=== PATIENT | male | born 1950 | race Caucasian/White ===

== ENCOUNTER 2016-12-23 12:16 | Inpatient (IN) | payer OTHER, MEDICARE ==
[2016-12-23] MEDS ORDERED: SODIUM CHLORIDE 0.9% 1,000 ML IV ONE ×2 (13:27→15:27)
[2016-12-23] MEDS ORDERED: methylPREDNISolone SOD SUCCI 125 MG/2 ML VIAL IV STA (13:28)
[2016-12-23] MEDS: IPRATROPIUM-ALBUTEROL 3 ML NEB INHALATION STA ×2 (13:36→13:40)
[2016-12-23 13:40] LABS: Basophils % (A) 1 %; CH 30.3; CHCM 34.7; Eosinophils # (A) 0.1 k/uL (0-0.7); Eosinophils % (A) 2 %; HCT 33.7 % (39.0-53.0); HDW 2.75; HGB 11.1 gm/dL (13.0-17.5); Luc # (Auto) 0.26; Luc % (Auto) 3; Lymphocytes # (A) 1.6 k/uL (1.0-4.8); Lymphocytes % (A) 21 %; MCH 28.9 pg (25.0-35.0); MCV 87.6 fL (80.0-100.0); Mean Platelet Volume 6.9; Monocytes # (A) 0.6 k/uL (0-1.0); Monocytes % (A) 7 %; Neutrophils # (A) 5.2 k/uL (1.3-7.7); Neutrophils % (A) 67 %; RBC 3.85 m/uL (4.30-5.90); RDW 13.2 % (11.5-15.5); WBC 7.8 k/uL (3.8-10.6); WBC (Perox) 7.77
[2016-12-23 13:51] LABS: Anion Gap 12 mmol/L; Blood Urea Nitrogen 17 mg/dL (9-20); Calcium 9.3 mg/dL (8.4-10.2); Carbon Dioxide 24 mmol/L (22-30); Chloride 103 mmol/L (98-107); Glucose 70 mg/dL (74-99); Non-African American GFR(MDRD) >60 (>60 ml/min/1.73 sqM); Potassium 4.3 mmol/L (3.5-5.1); Sodium 139 mmol/L (137-145)
--- NOTE | 2016-12-23 14:01 | ED ---
Extremity Problem HPI - General Chief complaint: Extremity Problem,Nontraumatic Stated complaint: Sent by sathya infection Source: patient Mode of arrival: ambulatory Limitations: no limitations - History of Present Illness Initial comments: Patient is a 66-year-old male who presents for evaluation for left foot wound. Past medical history as below. Patient recently had a surgery on his left foot at [facility] this past Monday. Has been doing well. Went and saw his primary care physician today and was concern for possible osteomyelitis of his left foot. He has a chronic nonhealing wounds. He is a diabetic with hypertension hyperlipidemia. Patient states that there is some drainage and mild pain to the left foot. Recommended by PCP to come in for evaluation for osteomyelitis. Denies fever, chills, headache, changes of vision, URI symptoms, shortness breath, cough, chest pain, nausea, vomiting, diarrhea, pain or burning with urination. - Related Data Home Medications Medication Instructions Recorded Confirmed Atorvastatin [Lipitor] 40 mg PO HS 12/23/16 12/23/16 Diltiazem HCl [Diltiazem 24Hr ER] 300 mg PO Q24H 12/23/16 12/23/16 HYDROcodone/APAP 10-325MG [Bowen 1 tab PO QID PRN 12/23/16 12/23/16 10-325] Hydrochlorothiazide [Hydrodiuril] 25 mg PO DAILY 12/23/16 12/23/16 Losartan Potassium [Cozaar] 100 mg PO DAILY 12/23/16 12/23/16 Melatonin 6 mg PO HS 12/23/16 12/23/16 Omeprazole [PriLOSEC] 20 mg PO AC-BRKFST 12/23/16 12/23/16 Salicylic Acid [Duofilm] 1 applic TOPICAL DAILY 12/23/16 12/23/16 Sennosides [Senna] 8.6 mg PO DAILY PRN 12/23/16 12/23/16 Sildenafil Citrate [Viagra] 100 mg PO ONCE PRN 12/23/16 12/23/16 Tamsulosin HCl [Flomax] 0.4 mg PO DAILY 12/23/16 12/23/16 glipiZIDE [Glucotrol] 20 mg PO BID 12/23/16 12/23/16 metFORMIN HCL [Glucophage] 1,000 mg PO BID 12/23/16 12/23/16 Allergies Allergy/AdvReac Type Severity Reaction Status Date / Time sulfamethoxazole Allergy Severe joint pain Verified 12/23/16 13:41 [From Bactrim] ciprofloxacin [From Cipro] Allergy joint pain Verified 12/23/16 13:41 lisinopril Allergy joint pain Verified 12/23/16 13:41 trimethoprim [From Bactrim] Allergy Unknown Verified 12/23/16 13:41 Review of Systems ROS Statement: Those systems with pertinent positive or pertinent negative responses have been documented in the HPI. ROS Other: All systems not noted in ROS Statement are negative. Past Medical History Past Medical History: Diabetes Mellitus, GERD/Reflux, Hyperlipidemia, Hypertension History of Any Multi-Drug Resistant Organisms: None Reported Past Surgical History: Orthopedic Surgery, Tonsillectomy Additional Past Surgical History / Comment(s): foot elbow great toe amputation Past Psychological History: No Psychological Hx Reported Smoking Status: Current every day smoker Past Alcohol Use History: None Reported Past Drug Use History: None Reported General Exam Limitations: no limitations General appearance: alert, in no apparent distress, other (Nontoxic appearing) Head exam: Present: atraumatic, normocephalic, normal inspection Eye exam: Present: normal appearance, PERRL, EOMI. Absent: scleral icterus, conjunctival injection, periorbital swelling ENT exam: Present: normal exam, mucous membranes moist Neck exam: Present: normal inspection. Absent: tenderness, meningismus, lymphadenopathy Respiratory exam: Present: wheezes, rhonchi, other (Coarse breath sounds bilaterally with expiratory wheeze. No respiratory distress. No hypoxia. No tachypnea.). Absent: respiratory distress, rales, stridor Cardiovascular Exam: Present: regular rate, normal rhythm, normal heart sounds. Absent: systolic murmur, diastolic murmur, rubs, gallop, clicks GI/Abdominal exam: Present: soft, normal bowel sounds. Absent: distended, tenderness, guarding, rebound, rigid Extremities exam: Present: normal inspection, full ROM, normal capillary refill. Absent: tenderness, pedal edema, joint swelling, calf tenderness Back exam: Present: normal inspection Neurological exam: Present: alert, oriented X3, CN II-XII intact Psychiatric exam: Present: normal affect, normal mood Skin exam: Present: warm, dry, intact, normal color, other (There is a quarter sized nonhealing wound on the entire surface of his left foot. Surgical changes to the left first and second digit. Appears intact. Mild degree of surrounding erythema to the wound on his left foot. Foul-smelling discharge.). Absent: rash Course Vital Signs 12/23/16 12/23/16 12/23/16 12:28 13:40 13:47 Temperature 97.7 F Pulse Rate 80 80 80 Respiratory 18 Rate Blood Pressure 127/62 O2 Sat by Pulse 96 Oximetry 12/23/16 15:34 Temperature 97.9 F Pulse Rate 77 Respiratory 18 Rate Blood Pressure 126/60 O2 Sat by Pulse 92 L Oximetry Medical Decision Making - Medical Decision Making -Patient is a 66 year old male who presents for evaluation for possible osteomyelitis the left foot. Sent by PCP. No associated symptoms. On exam he does have some incidental expiratory wheeze and scattered rhonchi. We'll order reading treatments and steroids. Two-view chest x-ray. Basic labs with a lactic acid and plain films of his left foot. 1515: Review laboratory studies. Mild lactic acidosis at 2.0. Rest of labs within normal limits. Reviewed plain films of his chest and left foot. There is evidence of acute osteomyelitis of the second metatarsal. Will start vancomycin. Page 2 admitting physician based on PCP preference. 1625: Awaiting callback from admitting physician. 1700: Will admit pt to Dr. Bhat's service for osteomyelitis. - Lab Data Result diagrams: 12/23/16 13:15 12/23/16 13:15 Lab Results 12/23/16 12/23/16 12/23/16 Range/Units 13:15 13:15 13:15 WBC 7.8 (3.8-10.6) k/uL RBC 3.85 L (4.30-5.90) m/uL Hgb 11.1 L (13.0-17.5) gm/dL Hct 33.7 L (39.0-53.0) % MCV 87.6 (80.0-100.0) fL MCH 28.9 (25.0-35.0) pg MCHC 33.0 (31.0-37.0) g/dL RDW 13.2 (11.5-15.5) % Plt Count 293 (150-450) k/uL Neutrophils % 67 % Lymphocytes % 21 % Monocytes % 7 % Eosinophils % 2 % Basophils % 1 % Neutrophils # 5.2 (1.3-7.7) k/uL Lymphocytes # 1.6 (1.0-4.8) k/uL Monocytes # 0.6 (0-1.0) k/uL Eosinophils # 0.1 (0-0.7) k/uL Basophils # 0.0 (0-0.2) k/uL ESR (0-15) mm/hr Sodium 139 (137-145) mmol/L Potassium 4.3 (3.5-5.1) mmol/L Chloride 103 (98-107) mmol/L Carbon Dioxide 24 (22-30) mmol/L Anion Gap 12 mmol/L BUN 17 (9-20) mg/dL Creatinine 1.00 (0.66-1.25) mg/dL Est GFR (MDRD) Af Amer >60 (>60 ml/min/1.73 sqM) Est GFR (MDRD) Non-Af >60 (>60 ml/min/1.73 sqM) Glucose 70 L (74-99) mg/dL POC Glucose (mg/dL) (75-99) mg/dL POC Glu Helicopter Dispatcher ID Plasma Lactic Acid Espinoza 2.0 (0.7-2.0) mmol/L Calcium 9.3 (8.4-10.2) mg/dL 12/23/16 12/23/16 Range/Units 13:15 14:43 WBC (3.8-10.6) k/uL RBC (4.30-5.90) m/uL Hgb (13.0-17.5) gm/dL Hct (39.0-53.0) % MCV (80.0-100.0) fL MCH (25.0-35.0) pg MCHC (31.0-37.0) g/dL RDW (11.5-15.5) % Plt Count (150-450) k/uL Neutrophils % % Lymphocytes % % Monocytes % % Eosinophils % % Basophils % % Neutrophils # (1.3-7.7) k/uL Lymphocytes # (1.0-4.8) k/uL Monocytes # (0-1.0) k/uL Eosinophils # (0-0.7) k/uL Basophils # (0-0.2) k/uL ESR 46 H (0-15) mm/hr Sodium (137-145) mmol/L Potassium (3.5-5.1) mmol/L Chloride (98-107) mmol/L Carbon Dioxide (22-30) mmol/L Anion Gap mmol/L BUN (9-20) mg/dL Creatinine (0.66-1.25) mg/dL Est GFR (MDRD) Af Amer (>60 ml/min/1.73 sqM) Est GFR (MDRD) Non-Af (>60 ml/min/1.73 sqM) Glucose (74-99) mg/dL POC Glucose (mg/dL) 109 H (75-99) mg/dL POC Glu Helicopter Dispatcher ID Candace Wallace Plasma Lactic Acid Espinoza (0.7-2.0) mmol/L Calcium (8.4-10.2) mg/dL Disposition Clinical Impression: Osteomyelitis, COPD (chronic obstructive pulmonary disease), Diabetes Disposition: ADMITTED IP TO THIS HOSP Condition: Fair Referrals: Florentino Roldan DO [Primary Care Provider] - 1-2 days Decision to Admit Reason: Admit from EC
[2016-12-23 14:48] LABS: Glucose,Whole Blood 109 mg/dL (75-99)
--- NOTE | 2016-12-23 15:17 | XR ---
EXAMINATION TYPE: XR chest 2V DATE OF EXAM: 12/23/2016 COMPARISON: NONE HISTORY: Chest pain per order. Infection in foot. TECHNIQUE: Frontal and lateral views of the chest are obtained. FINDINGS: There is no focal air space opacity, pleural effusion, or pneumothorax seen. The cardiac silhouette size is within normal limits. The osseous structures are intact. IMPRESSION: No acute cardiopulmonary process.
--- NOTE | 2016-12-23 15:19 | XR ---
EXAMINATION TYPE: XR foot complete LT DATE OF EXAM: 12/23/2016 CLINICAL HISTORY: Infection in foot per patient. Left foot pain. TECHNIQUE: Frontal, lateral, and oblique images of the left foot are obtained. COMPARISON: None FINDINGS: There is amputation defect at level of first toe. Osseous structures are demineralized. The re is old fracture deformity fifth proximal phalanx suspected. There is small to moderate-sized super ior calcaneal spur. Flexion in toes is noted. Some erosive change second metatarsal head is present. Mild to moderate diffuse soft tissue swelling is present. IMPRESSION: Erosive change second metatarsal head, acute osteomyelitis at this level cannot be exclud ed if this is area of clinical concern. Clinical correlation advised.
[2016-12-23] MEDS ORDERED: IV VANCOMYCIN PER PHARMACY 1 EACH MISC MISCELLANE PRN (15:24)
[2016-12-23] MEDS ORDERED: HYDROcodone/APAP 10-325MG 1 EACH TAB PO ONE (16:48)
[2016-12-23] MEDS: VANCOMYCIN 2,250 MG in SODIUM CHLORIDE 0.9% 500 ML IVPB STA ×2 (16:53→17:26)
[2016-12-23] MEDS ORDERED: NALOXONE 0.4 MG/ML 1 ML VIAL IV PRN (16:58)
[2016-12-23 20:44] LABS: Glucose,Whole Blood 378 mg/dL (75-99)
[2016-12-23] MEDS ORDERED: SENNOSIDES 8.6 MG TAB PO PRN (21:51)
[2016-12-23] MEDS: glipiZIDE 10 MG TAB PO SCH (23:34)
[2016-12-23] MEDS: metFORMIN 500 MG TAB PO SCH (23:34)
[2016-12-23] MEDS: ATORVASTATIN 40 MG TAB PO SCH (23:34)
[2016-12-23] MEDS: MELATONIN 3 MG TABLET PO SCH (23:34)
[2016-12-23] MEDS: SODIUM CHLORIDE 0.9% 1,000 ML IV SCH (23:35)
[2016-12-23] MEDS: HYDROcodone/APAP 10-325MG 1 EACH TAB PO PRN (23:35)
[2016-12-24] MEDS: BACITRACIN 500 UNIT/GM OINT 28.4 GM TUBE TOPICAL SCH ×2 (01:10→08:13)
[2016-12-24] MEDS: PIPERACILLIN-TAZOBACTAM 3.375 GM in DEXTROSE/WATER 1 50ML.BAG IVPB SCH ×3 (01:39→18:16)
[2016-12-24 03:03] LABS: Appearance,Urine Clear (Clear); Bilirubin,Urine Negative (Negative); Glucose,Urine (UA) 4+ (Negative); Ketones,Urine Negative (Negative); Leukocyte Esterase,Urine Negative (Negative); Nitrite,Urine Negative (Negative); Protein,Urine Negative (Negative); Specific Gravity,Urine 1.018 (1.001-1.035); UA Billing (MACRO vs. MICRO) CHEM; Urobilinogen,Urine <2.0 mg/dL (<2.0)
[2016-12-24] MEDS: HEPARIN SODIUM,PORCINE 5,000 UNIT/ML 1 ML VIAL SQ SCH ×3 (03:20→21:01)
[2016-12-24] MEDS: INSULIN LISPRO (humaLOG) 300 UNIT/3 ML VIAL SQ SCH ×5 (03:20→21:01)
[2016-12-24] MEDS: VANCOMYCIN 1,750 MG in SODIUM CHLORIDE 0.9% 250 ML IVPB SCH ×3 (06:48→21:59)
[2016-12-24 07:11] LABS: Glucose,Whole Blood 234 mg/dL (75-99)
[2016-12-24] MEDS: glipiZIDE 10 MG TAB PO SCH ×2 (08:11→18:16)
[2016-12-24] MEDS: PANTOPRAZOLE 40 MG TABLET PO SCH (08:12)
[2016-12-24] MEDS: DILTIAZEM CD 300 MG CAP.ER.24H PO SCH (08:13)
[2016-12-24] MEDS: LOSARTAN 50 MG TAB PO SCH (08:14)
[2016-12-24] MEDS: HYDROCHLOROTHIAZIDE 25 MG TAB PO SCH (08:14)
[2016-12-24] MEDS: VARENICLINE 1 MG TAB PO SCH ×2 (08:15→20:58)
[2016-12-24] MEDS: TAMSULOSIN 0.4 MG CAP.ER.24H PO SCH (08:15)
[2016-12-24] MEDS: metFORMIN 500 MG TAB PO SCH ×2 (08:15→20:58)
[2016-12-24] MEDS: HYDROcodone/APAP 10-325MG 1 EACH TAB PO PRN ×3 (08:22→19:06)
--- NOTE | 2016-12-24 09:07 | HP ---
DATE OF ADMISSION: DATE OF SERVICE: 12/23/2016 CHIEF COMPLAINT: Pain and swelling and ulcer of the left foot. HISTORY OF PRESENT ILLNESS: This 66-year-old gentleman with a past history of diabetes mellitus type 2, history of gastroesophageal reflux disease, hypertension, hyperlipidemia, history of degenerative joint disease being followed by Dr. Roldan in the outpatient setting had a previously left big toe amputation in 2011 in [place]. Currently the patient is noted to have foot ulcer on the right side and as well as pain and swelling difficulties. The patient has been treated with the financial reporting specialist, Dr. Gannon, who did recent surgery in [facility]. The incision and drainage was also done and multiple organisms grown from the cultures include Enterococcus, Staphylococcus, Pseudomonas and peptostreptococcal. Patient was suspected to have osteomyelitis and recommended to come to the hospital for further evaluation and treatment. There is no history of fevers, rigors, headaches, loss of consciousness, seizures. PAST MEDICAL HISTORY: Diabetes type 2, GERD, hypertension, hyperlipidemia, history of DJD, tonsillectomy. MEDICATIONS: Home medications are: 1. Chantix 1 mg p.o. b.i.d. 2. Melatonin 6 mg q.h.s. 3. Hydrocodone 10 mg t.i.d. p.r.n. 4. Senna 8.6 daily p.r.n. 5. Viagra 100 mg p.r.n. 6. Flomax 0.4 mg daily. 7. Glucophage 1000 mg p.o. b.i.d. 8. Prilosec 20 mg a.c. breakfast. 9. Glucotrol 20 mg p.o. b.i.d. 10. Cozaar 100 mg p.o. daily. 11. HydroDIURIL 25 mg p.o. daily. 12. Diltiazem 24 hour ER 300 mg p.o. b.i.d. daily. 13. Lipitor 40 mg at bedtime. ALLERGIES: BACTRIM, CIPRO, LISINOPRIL. FAMILY HISTORY: No history of heart disease or strokes in the family. SOCIAL HISTORY: Previous history of smoking. No current history of smoking or alcohol intake. REVIEW OF SYSTEMS: ENT: No diminished hearing or diminished vision. CARDIOVASCULAR: No angina. RESPIRATORY: No cough. GI: No nausea. : No dysuria. NERVOUS SYSTEM: As mentioned earlier. ALLERGY/IMMUNOLOGY: No asthma. MUSCULOSKELETAL: As mentioned earlier. HEMATOLOGY: As mentioned earlier. ENDOCRINE: As mentioned earlier. CONSTITUTIONAL: As mentioned earlier. DERMATOLOGY: Negative. RHEUMATOLOGY: As mentioned earlier. PSYCHIATRY: Negative. NEUROLOGY: As mentioned earlier. PHYSICAL EXAMINATION: Patient is alert and oriented x3. Pulse 79, blood pressure 137/61, respirations 14, temperature 97.4, pulse ox 90% on room air. HEENT: Conjunctivae normal. Oral mucosa moist. NECK: No jugular venous distention. No carotid bruit. No lymph node enlargement. CARDIOVASCULAR: S1 and S2, muffled. RESPIRATORY: Breath sounds diminished at the bases. No rhonchi, no crackles. ABDOMEN: Soft, nontender. No mass palpable. LEGS: Left leg with pain and swelling. Ulcer of the distal foot with erythema status post incision and drainage. Sutures are present. Sensory loss in the distal part present. NERVOUS SYSTEM: Higher function as mentioned. No focal motor deficits. SKIN: As mentioned earlier. LYMPHATIC: No lymphadenopathy in the neck, axillae or groin. JOINTS: No active deforming arthropathy. LABS: WBC 7.2, hemoglobin 11.1. ESR 46 and glucose 70 and 109 and 378. ASSESSMENT: 1. Acute diabetic foot on the right foot with possible osteomyelitis, polymicrobial including Enterococcus faecalis, vancomycin sensitive and as well as Pseudomonas aeruginosa. 2. Diabetes mellitus type 2 uncontrolled. 3. Anemia, normocytic, anemia of chronic disease. 4. Obesity, body mass index of 30.1. 5. History of gastroesophageal reflux disease. 6. Hypertension, essential. 7. Hyperlipidemia. 8. History of degenerative joint disease. 9. History of left big toe amputation. 10. Remote history of nicotine dependence. 11. FULL CODE. RECOMMENDATIONS AND DISCUSSION: In this 66-year-old gentleman who presented with multiple complex medical issues, we will monitor the patient closely. Continue the current medications, continue symptomatic treatment. Monitor blood sugars closely. Otherwise, broad-spectrum IV antibiotics of vancomycin and Zosyn will be initiated. Otherwise, I would recommend repeat labs and closely follow with Infectious Disease. Endovascular evaluation. Guarded prognosis because of multiple complex medical issues. Copy of dictation forwarded to Dr. Roldan who is the primary physician.
--- NOTE | 2016-12-24 11:59 | NM ---
EXAMINATION TYPE: NM bone 3 phase DATE OF EXAM: 12/24/2016 COMPARISON: NONE HISTORY: Diabetic wound, left great toe. Triple phase bone scintigraphy was performed following the injection of27.5 mCi Tc 99m MDP. Immediat e images and 3 hours post injection images acquired. FINDINGS: There is increased flow and pool activity in the left foot specifically there is abnormal a ctivity in the region of the distal left second metatarsal. Only minimal activity is noted in the glendy mp of the first metatarsal. IMPRESSION: I could not exclude osteomyelitis of the left second metatarsal.
[2016-12-24 12:25] LABS: Glucose,Whole Blood 200 mg/dL (75-99)
[2016-12-24 14:10] LABS: Hemoglobin A1C 7.8 % (4.2-6.1)
[2016-12-24 16:46] LABS: Glucose,Whole Blood 197 mg/dL (75-99)
[2016-12-24] MEDS: SODIUM CHLORIDE 0.9% 1,000 ML IV SCH (17:34)
--- NOTE | 2016-12-24 18:44 | PN ---
DATE OF SERVICE: 12/24/2016 This 66-year-old gentleman who was admitted with acute diabetic foot and possible osteomyelitis is improving. Being closely monitored. No chest pain or palpitation. No fever. The patient had a bone scan today which showed possible osteomyelitis of second left second metatarsal. Infectious disease evaluation in progress. No chest pain. No palpitations. No fever. On exam, alert and oriented times three. Pulse 73, blood pressure 126/67. Respiratory rate 18. Temperature 97.6. Pulse ox 94% on room air. HEENT: Conjunctivae normal. NECK: No jugular venous distention. CARDIOVASCULAR: S1, S2 muffled. RESPIRATORY: Breath sounds diminished at the bases. No rhonchi. No crackles. ABDOMEN: Soft. Nontender. LEGS: Infection of the left foot present. CENTRAL NERVOUS SYSTEM: No focal deficits. LABS: Accu-Cheks 234 and 200 and labs are noted. ASSESSMENT: 1. Acute diabetic foot on the right foot with possible osteomyelitis of the second metatarsal with polymicrobial blanca including Enterococcus faecalis Vancomycin sensitive as well as Pseudomonas auriginosa and Staph and Peptostreptococcus. 2. Diabetes mellitus type 2 uncontrolled. 3. Anemia, normocytic anemia of chronic disease. 4. Obesity, body mass index of 30.1. 5. History of gastroesophageal reflux disease. 6. Hypertension. 7. Hyperlipidemia. 8. History of degenerative joint disease . 9. History of left big toe amputation in 10. Remote history of nicotine dependence. 11. FULL CODE. RECOMMENDATIONS AND DISCUSSION: Recommend to continue current medications. Continue with symptomatic treatment. Continue IV antibiotics. Bone scan noted. Closely follow-up with infectious disease. Monitor blood sugars closely. Guarded prognosis. Further recommendations to follow. MTDD
[2016-12-24 20:29] LABS: Glucose,Whole Blood 302 mg/dL (75-99)
[2016-12-24] MEDS: ATORVASTATIN 40 MG TAB PO SCH (20:58)
[2016-12-24] MEDS: MELATONIN 3 MG TABLET PO SCH (20:58)
[2016-12-25] MEDS: PIPERACILLIN-TAZOBACTAM 3.375 GM in DEXTROSE/WATER 1 50ML.BAG IVPB SCH ×4 (01:20→23:17)
[2016-12-25] MEDS: SODIUM CHLORIDE 0.9% 1,000 ML IV SCH ×2 (02:17→17:23)
[2016-12-25] MEDS: HYDROcodone/APAP 10-325MG 1 EACH TAB PO PRN ×3 (03:00→21:49)
[2016-12-25 07:00] LABS: Glucose,Whole Blood 95 mg/dL (75-99)
[2016-12-25 09:35] LABS: Anion Gap 11 mmol/L; Blood Urea Nitrogen 20 mg/dL (9-20); Calcium 9.6 mg/dL (8.4-10.2); Carbon Dioxide 26 mmol/L (22-30); Chloride 106 mmol/L (98-107); Glucose 95 mg/dL (74-99); Non-African American GFR(MDRD) >60 (>60 ml/min/1.73 sqM); Potassium 4.1 mmol/L (3.5-5.1); Sodium 143 mmol/L (137-145)
[2016-12-25 09:40] LABS: Basophils % (A) 0 %; CH 30.1; CHCM 33.7; Eosinophils # (A) 0.1 k/uL (0-0.7); Eosinophils % (A) 0 %; HCT 33.3 % (39.0-53.0); HDW 2.78; Luc # (Auto) 0.12; Luc % (Auto) 1; Lymphocytes # (A) 2.2 k/uL (1.0-4.8); Lymphocytes % (A) 21 %; MCH 29.7 pg (25.0-35.0); MCHC 33.1 g/dL (31.0-37.0); MCV 89.6 fL (80.0-100.0); Mean Platelet Volume 7.1; Monocytes # (A) 0.5 k/uL (0-1.0); Monocytes % (A) 5 %; Neutrophils # (A) 7.7 k/uL (1.3-7.7); Neutrophils % (A) 73 %; RBC 3.71 m/uL (4.30-5.90); RDW 13.4 % (11.5-15.5); WBC 10.6 k/uL (3.8-10.6); WBC (Perox) 10.77
[2016-12-25] MEDS: INSULIN LISPRO (humaLOG) 300 UNIT/3 ML VIAL SQ SCH ×4 (10:28→21:35)
[2016-12-25] MEDS: glipiZIDE 10 MG TAB PO SCH ×2 (10:28→17:24)
[2016-12-25] MEDS: VANCOMYCIN 1,750 MG in SODIUM CHLORIDE 0.9% 250 ML IVPB SCH ×2 (10:28→18:50)
[2016-12-25] MEDS: DILTIAZEM CD 300 MG CAP.ER.24H PO SCH (10:29)
[2016-12-25] MEDS: BACITRACIN 500 UNIT/GM OINT 28.4 GM TUBE TOPICAL SCH (10:29)
[2016-12-25] MEDS: HEPARIN SODIUM,PORCINE 5,000 UNIT/ML 1 ML VIAL SQ SCH ×2 (10:29→21:35)
[2016-12-25] MEDS: TAMSULOSIN 0.4 MG CAP.ER.24H PO SCH (10:29)
[2016-12-25] MEDS: HYDROCHLOROTHIAZIDE 25 MG TAB PO SCH (10:29)
[2016-12-25] MEDS: VARENICLINE 1 MG TAB PO SCH ×2 (10:29→21:34)
[2016-12-25] MEDS: metFORMIN 500 MG TAB PO SCH ×2 (10:29→21:32)
[2016-12-25] MEDS: LOSARTAN 50 MG TAB PO SCH (10:29)
[2016-12-25] MEDS: PANTOPRAZOLE 40 MG TABLET PO SCH (10:29)
[2016-12-25 11:52] LABS: Glucose,Whole Blood 136 mg/dL (75-99)
--- NOTE | 2016-12-25 12:10 | CONS ---
DATE OF CONSULTATION: 12/24/2016 REASON FOR CONSULTATION: Left foot wound and osteomyelitis. HISTORY OF PRESENT ILLNESS: The patient is a 66-year-old diabetic male who did have a wound to the plantar aspect of his right foot at the base of his second metatarsal head that has been going on for a couple of months now and being under the care of Dr. Shawn Gannon. The patient recently did have surgery with removal of the infected bone at [facility] about a week ago. The patient did have cultures obtained, which did grow multiple pathogens including pseudomonas, enterococcus and Strep. The patient was evaluated in the ( ) office yesterday and the patient was advised he needs to be on IV antibiotic therapy. Subsequently, advised to go to the hospital to be started on IV antibiotic therapy. Patient has been complaining of some pain especially when he walks on it at the site of surgery. Describes pain 2 to 3 out of 10 and no radiation. The patient denies significant drainage from his wound. The patient denies any high grade fever, rigor or chills. No significant chest pain, shortness of breath or cough. NO abdominal pain or any diarrhea. REVIEW OF SYSTEMS: CONSTITUTIONAL: Positive for weakness. EYES: No complaint. ENT: No complaint. RESPIRATORY: No complaint. CARDIOVASCULAR: No complaint. GENITOURINARY: No complaint. GASTROINTESTINAL: No complaint. MUSCULOSKELETAL: As per HPI. INTEGUMENTARY: As per HPI. PSYCHOLOGICAL: No complaint. ENDOCRINAL: No complaint. NEUROLOGICAL: No complaint. PAST MEDICAL HISTORY: Type 2 diabetes mellitus, gastroesophageal reflux disease, hypertension, hyperlipidemia, osteomyelitis. PAST SURGICAL HISTORY: Amputation of the left big toe, ( ), tonsillectomy and recent surgery at [facility] for removal of the second dorsal head. SOCIAL HISTORY: Remote history of smoking. Denies drinking or drug use. FAMILY HISTORY: No pertinent findings noticed. ALLERGIES: BACTRIM, CIPRO AND ( ). Medications include the patient is currently on [place], Xanax, Lipitor, Cardizem, Glucotrol, heparin, hydrochlorothiazide, Humalog, Cozaar, melatonin, Glucophage, Narcan, Protonix, pip-tazobactam, Senokot, Flomax, vancomycin. On examination blood pressure is 106/56, pulse of 75, temperature 98.1. He is 95% on room air. General description he is an elderly male up in the bed in no distress. No tachypnea or accessory muscles of respiration use. HEENT EXAMINATION: Slight pallor. No scleral icterus. Oral mucous membranes moist. NECK: Trachea central. There is no thyromegaly. LUNGS: Unlabored breathing. Clear to auscultation anteriorly. No wheeze or crackles. HEART: S1, S2. Regular rate and rhythm. ABDOMEN: Soft, no tenderness. No guarding or rigidity. EXTREMITIES: No edema of feet. Examination of the left foot, the patient did have wound on the plantar aspect which looks clean. He did have some swelling of the second toe. No significant drainage was noticed. NEUROLOGICAL: The patient is awake, alert, and oriented x3. Mood and affect normal. LABS: Hemoglobin is 11.1, sedimentation rate of 46, BUN of 17, creatinine 1.0. Electrolytes have been normal. Urine is negative. Local culture obtained, currently pending. DIAGNOSTIC IMPRESSION AND PLAN: 1. Patient with left diabetic foot infection with underlying osteomyelitis, status post surgery at [facility]. Cultures there did grow Peptostreptococcus, Pseudomonas and Enterococcus. The patient did not receive any antibiotics in the outpatient setting. Subsequently admitted to the hospital for initiation of IV antibiotics for outpatient course. 2. Patient did have multiple ANTIBIOTIC ALLERGIES that will limit the number of antibiotics that can be safely used. PLAN: 1. We will continue the patient on Zosyn and vancomycin, pharmacy to dose. 2. The patient will likely need a PICC line for outpatient IV antibiotic therapy, more likely Zosyn. 3. Will follow up on the clinical condition and cultures to further adjust the medication if needed. Thank you for this consultation. Will follow this patient along with you.
[2016-12-25 16:57] LABS: Glucose,Whole Blood 137 mg/dL (75-99)
[2016-12-25 21:08] LABS: Glucose,Whole Blood 187 mg/dL (75-99)
[2016-12-25] MEDS: MELATONIN 3 MG TABLET PO SCH (21:34)
[2016-12-25] MEDS: ATORVASTATIN 40 MG TAB PO SCH (21:35)
[2016-12-25] MEDS: ALPRAZolam 0.25 MG TAB PO PRN (21:49)
[2016-12-26] MEDS: HYDROcodone/APAP 10-325MG 1 EACH TAB PO PRN ×4 (04:17→22:03)
[2016-12-26] MEDS: ALPRAZolam 0.25 MG TAB PO PRN ×4 (04:18→22:03)
[2016-12-26] MEDS ORDERED: VANCOMYCIN TROUGH DUE 1 EACH MISC MISCELLANE ONE (05:00)
[2016-12-26 05:12] LABS: Basophils % (A) 1 %; CHCM 33.8; Eosinophils # (A) 0.1 k/uL (0-0.7); Eosinophils % (A) 2 %; HCT 32.6 % (39.0-53.0); HGB 10.8 gm/dL (13.0-17.5); Luc # (Auto) 0.15; Luc % (Auto) 2; Lymphocytes # (A) 1.9 k/uL (1.0-4.8); Lymphocytes % (A) 26 %; MCH 29.7 pg (25.0-35.0); MCHC 33.3 g/dL (31.0-37.0); MCV 89.1 fL (80.0-100.0); Mean Platelet Volume 6.9; Monocytes # (A) 0.4 k/uL (0-1.0); Monocytes % (A) 6 %; Neutrophils # (A) 4.7 k/uL (1.3-7.7); Neutrophils % (A) 64 %; RBC 3.66 m/uL (4.30-5.90); RDW 13.2 % (11.5-15.5); WBC 7.3 k/uL (3.8-10.6); WBC (Perox) 7.84
[2016-12-26 05:28] LABS: Anion Gap 8 mmol/L; Blood Urea Nitrogen 17 mg/dL (9-20); Calcium 9.4 mg/dL (8.4-10.2); Carbon Dioxide 28 mmol/L (22-30); Chloride 105 mmol/L (98-107); Glucose 96 mg/dL (74-99); Non-African American GFR(MDRD) >60 (>60 ml/min/1.73 sqM); Sodium 141 mmol/L (137-145)
[2016-12-26] MEDS: VANCOMYCIN 1,750 MG in SODIUM CHLORIDE 0.9% 250 ML IVPB SCH (06:20)
[2016-12-26] MEDS: SODIUM CHLORIDE 0.9% 1,000 ML IV SCH ×2 (06:47→17:51)
--- NOTE | 2016-12-26 07:02 | PN ---
DATE OF SERVICE: 12/25/2016 This 66-year-old gentleman who was admitted with acute diabetic foot on the right side with possible osteomyelitis of the second metatarsal with polymicrobial blanca is being closely monitored. The patient has been seen by Infectious Disease and recommended PICC line for outpatient antibiotics. No chest pain, no palpitations. No fever. On exam, alert and oriented x3. Pulse 75, blood pressure 130/74, respirations 18, temperature 97.8, pulse ox 94% on room air. HEENT: Conjunctivae normal. NECK: No jugular venous distention. CARDIOVASCULAR: S1 and S2. RESPIRATORY: Breath sounds diminished at the bases. No rhonchi, no crackles. ABDOMEN: Soft. LEGS: Left foot swelling and tenderness present. NERVOUS SYSTEM: No focal deficits. LABS: WBC 10.5, hemoglobin 11. Accu-Cheks noted. ASSESSMENT: 1. Acute diabetic foot on the right foot, possible osteomyelitis of the second metatarsal with polymicrobial blanca including Enterococcus faecalis, vancomycin sensitive and as well as Pseudomonas aeruginosa, Staphylococcus and Peptostreptococcus. 2. Diabetes mellitus type 2 uncontrolled. 3. Anemia, normocytic chronic disease. 4. Obesity, body mass index of 30.1. 5. History of gastroesophageal reflux disease. 6. Hypertension, essential. 7. Hyperlipidemia. 8. History of degenerative joint disease. 9. History of left big toe amputation. 10. Remote history of nicotine dependence. 11. FULL CODE. RECOMMENDATIONS AND DISCUSSION: I recommend to continue the current medications, continue monitoring and symptomatic treatment. Otherwise continue PICC line tomorrow with broad-spectrum IV antibiotics. pay station department manager and social insurance analyst will follow. Further recommendations to follow.
[2016-12-26 07:36] LABS: Glucose,Whole Blood 118 mg/dL (75-99)
[2016-12-26] MEDS: HEPARIN SODIUM,PORCINE 5,000 UNIT/ML 1 ML VIAL SQ SCH ×2 (07:53→20:49)
[2016-12-26] MEDS: PIPERACILLIN-TAZOBACTAM 3.375 GM in DEXTROSE/WATER 1 50ML.BAG IVPB SCH ×4 (07:53→23:23)
[2016-12-26] MEDS: LOSARTAN 50 MG TAB PO SCH (07:53)
[2016-12-26] MEDS: glipiZIDE 10 MG TAB PO SCH ×2 (07:54→17:48)
[2016-12-26] MEDS: HYDROCHLOROTHIAZIDE 25 MG TAB PO SCH (07:54)
[2016-12-26] MEDS: TAMSULOSIN 0.4 MG CAP.ER.24H PO SCH (07:54)
[2016-12-26] MEDS: metFORMIN 500 MG TAB PO SCH ×2 (07:54→20:49)
[2016-12-26] MEDS: DILTIAZEM CD 300 MG CAP.ER.24H PO SCH (07:54)
[2016-12-26] MEDS: VARENICLINE 1 MG TAB PO SCH ×2 (07:54→20:49)
[2016-12-26] MEDS: INSULIN LISPRO (humaLOG) 300 UNIT/3 ML VIAL SQ SCH ×4 (07:55→20:51)
[2016-12-26] MEDS: BACITRACIN 500 UNIT/GM OINT 28.4 GM TUBE TOPICAL SCH (07:55)
[2016-12-26] MEDS: PANTOPRAZOLE 40 MG TABLET PO SCH (07:55)
--- NOTE | 2016-12-26 08:48 | PN ---
DATE OF SERVICE: 12/25/2016 Reason for follow-up is left foot osteomyelitis. INTERVAL HISTORY: The patient is afebrile. He is breathing comfortably. Denies significant chest pain, shortness of breath. No cough. No abdominal pain or any worsening pain in the foot area. On examination, blood pressure 132/54, pulse of 75, temperature 97.8. He is 94% on room air. General description is a middle-aged male up in the bed in no distress. RESPIRATORY: Unlabored breathing. clear to auscultation anteriorly. HEART: S1, S2. Regular rate and rhythm. ABDOMEN: Soft, no tenderness. Left foot overall swelling has slightly improved with the wound to the plantar aspect with no drainage. LABS: Hemoglobin 11, white count 10.6, BUN of 20 with a creatinine 0.89. DIAGNOSTIC IMPRESSION AND PLAN: Patient with left foot osteomyelitis, status post ( ) infected wound at [facility] the wound culture with pseudomonas currently on Zosyn and that will be continued. Possible plan for a PICC line tomorrow and Zosyn 4.5 q.8 for 6 weeks with weekly monitoring of CBC and BMP and outpatient follow-up.
[2016-12-26] MEDS ORDERED: LIDOCAINE 2% INJ 20 MG/ML SQ ONE (10:04)
[2016-12-26 11:34] LABS: Glucose,Whole Blood 130 mg/dL (75-99)
--- NOTE | 2016-12-26 13:28 | IR ---
EXAMINATION TYPE: IR cvc insert >=5 years DATE OF EXAM: 12/26/2016 COMPARISON: NONE CLINICAL HISTORY: Infection Needs long-term intravenous access for antibiotics. PROCEDURE: After informed consent, the skin overlying the left basilic vein was localized with ultrasound and no mario to be compressible and patent. An ultrasound image was obtained and submitted on the patient's c alan. The overlying skin was prepped and draped and Lidocaine was used for local anesthesia. A skin megan was made with a scalpel. Access was gained to the vein under ultrasound guidance with a 21 gau ge needle and a 0.018 inch wire was advanced. Access site was dilated with Peel-Away sheath and cath eter tailored to the appropriate length and advanced such that the distal tip is at the cavoatrial ju nction. Spot image was obtained verifying placement. Catheter was fixed to the skin with suture and a sterile dressing was placed following hemostasis. Catheter was aspirated and flushed with saline. Patient was discharged in stable condition without complication. Maximal barrier technique is utili zed. Ultrasound image is documented on the chart. Ultrasound used with sterile technique. Fluoro time and fluoroscopic images submitted to document procedure: 106 intraoperative C-arm images, 0.4 minutes fluoroscopy time IMPRESSION: STATUS POST ULTRASOUND AND FLUOROSCOPIC GUIDED PICC LINE PLACEMENT, READY FOR USE. THIS PROCEDURE WAS PERFORMED BY THE UNDERSIGNED.
--- NOTE | 2016-12-26 14:25 | P.PN ---
Subjective Date of service 12/26/2016. Progress note being dictated for Dr. Bhat. Interval history: This is a 66-year-old gentleman admitted with left foot osteomyelitis, wound culture positive for pseudomonas aeruginosa and multiple other medical issues. Maintained on Zosyn as per infectious disease with significant clinical improvement. PICC line placed this morning. Denies chest pain, palpitations or increasing shortness of breath. Afebrile. Objective - Vital Signs Vital signs: Vital Signs Temp 97.2 F L 12/26/16 07:00 Pulse 73 12/26/16 07:00 Resp 16 12/26/16 07:00 BP 122/70 12/26/16 07:00 Pulse Ox 95 12/26/16 07:00 Intake & Output 12/25/16 12/26/16 12/26/16 18:59 06:59 18:59 Intake Total 440 Output Total 350 Balance 440 -350 Intake: Oral 440 Output: Urine 350 Other: Voiding Method Toilet Toilet # Voids 3 1 # Bowel Movements 0 0 - Exam PHYSICAL EXAM: VITAL SIGNS: As above GENERAL: [Sitting up in bed, no acute distress] HEENT: [Pupils equal conjunctiva normal.] NECK: [Supple, no JVD] RESPIRATORY EFFORT:[normal LUNGS: [ Essentially clear, bilateral bases diminished, no wheezing, rhonchi or crackles]] CARDIOVASCULAR[ regular S1 and S2, no murmurs rubs or gallops, decreasing edema] GI: [Abdomen soft, nontender, positive bowel sounds.] PSYCH: [Alert and oriented -3, mood and affect normal.] SKIN: Dressing clean dry and intact, edema improving NEURO: [No focal deficits.] - Labs CBC & Chem 7: 12/26/16 04:37 12/26/16 04:37 Labs: Abnormal Lab Results - Last 24 Hours (Table) 12/25/16 12/25/16 12/26/16 Range/Units 16:55 21:06 04:37 RBC 3.66 L (4.30-5.90) m/uL Hgb 10.8 L (13.0-17.5) gm/dL Hct 32.6 L (39.0-53.0) % POC Glucose (mg/dL) 137 H 187 H (75-99) mg/dL 12/26/16 12/26/16 Range/Units 07:32 11:33 RBC (4.30-5.90) m/uL Hgb (13.0-17.5) gm/dL Hct (39.0-53.0) % POC Glucose (mg/dL) 118 H 130 H (75-99) mg/dL Microbiology - Last 24 Hours (Table) 12/24/16 00:00 Gram Stain - Final Foot - Left Wound Culture - Final Pseudomonas aeruginosa Assessment and Plan Plan: 1. [ Acute diabetic foot with right foot osteomyelitis, cultures positive for pseudomonas aeruginosa]. 2. [ Diabetes mellitus type 2 , better controlled]. 3. [ Anemia, normocytic of chronic disease]. 4. [ Obesity, BMI 30.1]. 5. [ Gastroesophageal reflux disease]. 6. [ Essential hypertension]. 7. [ Hyperlipidemia]. 8. Degenerative joint disease 9. History of left great toe amputation 10. Remote history of nicotine dependence. Plan: Continue on current medication regime , Zosyn, monitoring and symptomatic treatment. Maintain tight control of blood sugars. PICC line placed. Discharge planning in progress pending outpatient antibiotic treatment as recommended per infectious disease, arranged per case management. Maintain supportive care. Further recommendations to follow. The impression and plan of care has been dictated as directed. : I performed a H&P examination of this patient and discussed the same with the dictator. I agree with the dictator's note. Any additional findings/opinions/ etc. will be noted.
[2016-12-26 17:25] LABS: Glucose,Whole Blood 145 mg/dL (75-99)
--- NOTE | 2016-12-26 17:30 | PN ---
DATE OF SERVICE: 12/26/2013 Reason for follow-up is left foot osteomyelitis. INTERVAL HISTORY: The patient is afebrile. He has been breathing comfortably. Denies significant chest pain, shortness of breath, or cough or any abdominal pain. Worsening pain in the left foot area. On examination, blood pressure is 122/70 with a pulse of 73, temperature 97.2. He is 95% on room air. General description is an elderly male lying in bed in no distress. Respiratory system: Unlabored breathing. Clear to auscultation anteriorly. HEART: S1, S2. Regular rate and rhythm. ABDOMEN: Soft. No tenderness. LABS: Hemoglobin 10.2, white count 7.3. BUN of 17, creatinine 1.0. Wound cultures are showing Pseudomonas aeruginosa. Sensitive pathogen. DIAGNOSTIC IMPRESSION AND PLAN: Patient with left foot osteomyelitis with the cultures here showing ( ) cultures at ( ) did show multiple ( ) pathogens and Peptostreptococcus and enterococcus and antibiotic chosen at this time is Zosyn that will be transitioned to 4.5 q8 for 6 weeks with weekly monitoring of CBC and BMP and sedimentation rate. Vancomycin to be discontinued. Once antibiotic arranged, he should be able to go home from ID standpoint.
--- NOTE | 2016-12-26 18:56 | PN ---
DATE OF SERVICE: 12/26/2016 This 66 -year-old gentleman was admitted to the hospital with features of osteomyelitis, is being closely monitored. PICC line has been inserted. Seen and evaluated the patient along with nurse practitioner. Please refer to the nurse practitioner notes and impression documented as a scribe for further information. submarine worker to arrange for the outpatient antibiotics. Further recommendations to follow.
[2016-12-26 20:46] LABS: Glucose,Whole Blood 239 mg/dL (75-99)
[2016-12-26] MEDS: MELATONIN 3 MG TABLET PO SCH (20:49)
[2016-12-26] MEDS: ATORVASTATIN 40 MG TAB PO SCH (20:49)
[2016-12-27] MEDS: ALPRAZolam 0.25 MG TAB PO PRN ×4 (03:52→22:30)
[2016-12-27] MEDS: HYDROcodone/APAP 10-325MG 1 EACH TAB PO PRN ×4 (03:52→22:30)
[2016-12-27] MEDS: SODIUM CHLORIDE 0.9% 1,000 ML IV SCH ×2 (05:29→22:32)
[2016-12-27 07:20] LABS: Glucose,Whole Blood 96 mg/dL (75-99)
[2016-12-27] MEDS: INSULIN LISPRO (humaLOG) 300 UNIT/3 ML VIAL SQ SCH ×4 (07:22→22:34)
[2016-12-27 08:11] LABS: Basophils % (A) 0 %; CH 29.5; CHCM 34.3; Eosinophils # (A) 0.1 k/uL (0-0.7); Eosinophils % (A) 2 %; HCT 33.1 % (39.0-53.0); HDW 2.91; HGB 11.8 gm/dL (13.0-17.5); Luc # (Auto) 0.19; Luc % (Auto) 3; Lymphocytes # (A) 1.7 k/uL (1.0-4.8); Lymphocytes % (A) 24 %; MCH 30.8 pg (25.0-35.0); MCHC 35.7 g/dL (31.0-37.0); MCV 86.3 fL (80.0-100.0); Mean Platelet Volume 7.4; Monocytes # (A) 0.5 k/uL (0-1.0); Monocytes % (A) 7 %; Neutrophils # (A) 4.7 k/uL (1.3-7.7); Neutrophils % (A) 65 %; RBC 3.84 m/uL (4.30-5.90); RDW 12.8 % (11.5-15.5); WBC 7.3 k/uL (3.8-10.6); WBC (Perox) 7.59
[2016-12-27] MEDS: DILTIAZEM CD 300 MG CAP.ER.24H PO SCH (08:20)
[2016-12-27] MEDS: PIPERACILLIN-TAZOBACTAM 3.375 GM in DEXTROSE/WATER 1 50ML.BAG IVPB SCH ×2 (08:20→15:22)
[2016-12-27] MEDS: LOSARTAN 50 MG TAB PO SCH (08:20)
[2016-12-27] MEDS: VARENICLINE 1 MG TAB PO SCH ×2 (08:20→22:34)
[2016-12-27] MEDS: metFORMIN 500 MG TAB PO SCH ×2 (08:20→22:34)
[2016-12-27] MEDS: glipiZIDE 10 MG TAB PO SCH ×2 (08:20→18:03)
[2016-12-27] MEDS: TAMSULOSIN 0.4 MG CAP.ER.24H PO SCH (08:21)
[2016-12-27] MEDS: HYDROCHLOROTHIAZIDE 25 MG TAB PO SCH (08:21)
[2016-12-27] MEDS: HEPARIN SODIUM,PORCINE 5,000 UNIT/ML 1 ML VIAL SQ SCH ×2 (08:21→22:35)
[2016-12-27] MEDS: BACITRACIN 500 UNIT/GM OINT 28.4 GM TUBE TOPICAL SCH (08:22)
[2016-12-27] MEDS: PANTOPRAZOLE 40 MG TABLET PO SCH (08:22)
[2016-12-27 08:34] LABS: Anion Gap 9 mmol/L; Blood Urea Nitrogen 15 mg/dL (9-20); Calcium 9.4 mg/dL (8.4-10.2); Carbon Dioxide 29 mmol/L (22-30); Chloride 103 mmol/L (98-107); Glucose 101 mg/dL (74-99); Non-African American GFR(MDRD) >60 (>60 ml/min/1.73 sqM); Potassium 4.3 mmol/L (3.5-5.1); Sodium 141 mmol/L (137-145)
[2016-12-27 12:03] LABS: Glucose,Whole Blood 138 mg/dL (75-99)
--- NOTE | 2016-12-27 16:23 | P.PN ---
Subjective Date of service 12/27/2016. Progress note being dictated for Dr. Bhat. Interval history: This is a 66-year-old gentleman admitted with left foot osteomyelitis, wound culture positive for pseudomonas aeruginosa and multiple other medical issues. Maintained on Zosyn as per infectious disease with continued significant clinical improvement. Denies chest pain, palpitations or increasing shortness of breath. Afebrile. Awaiting authorization for outpatient IV antibiotic tx. Objective - Vital Signs Vital signs: Vital Signs Temp 97.8 F 12/27/16 15:00 Pulse 70 12/27/16 15:00 Resp 18 12/27/16 15:00 BP 112/58 12/27/16 15:00 Pulse Ox 95 12/27/16 15:00 Intake & Output 12/26/16 12/27/16 12/27/16 18:59 06:59 18:59 Intake Total 440 Output Total 300 Balance 140 Weight 103.419 kg Intake: Oral 440 Output: Urine 300 Other: Voiding Method Toilet Toilet Urinal # Voids 3 3 2 # Bowel Movements 1 0 - Exam PHYSICAL EXAM: VITAL SIGNS: As above GENERAL: [Sitting up at side of bed, no acute distress] HEENT: [Pupils equal conjunctiva normal.] NECK: [Supple, no JVD] RESPIRATORY EFFORT:[normal LUNGS: bilateral bases diminished, no wheezing, rhonchi or crackles]] CARDIOVASCULAR[ regular S1 and S2, no murmurs rubs or gallops, decreasing edema] GI: [Abdomen soft, nontender, positive bowel sounds.] PSYCH: [Alert and oriented -3, mood and affect normal.] SKIN: Dressing clean dry and intact NEURO: [No focal deficits.] - Labs CBC & Chem 7: 12/27/16 07:49 12/27/16 07:49 Labs: Abnormal Lab Results - Last 24 Hours (Table) 12/26/16 12/26/16 12/27/16 Range/Units 17:23 20:45 07:49 RBC 3.84 L (4.30-5.90) m/uL Hgb 11.8 L (13.0-17.5) gm/dL Hct 33.1 L (39.0-53.0) % Glucose (74-99) mg/dL POC Glucose (mg/dL) 145 H 239 H (75-99) mg/dL 12/27/16 12/27/16 Range/Units 07:49 11:59 RBC (4.30-5.90) m/uL Hgb (13.0-17.5) gm/dL Hct (39.0-53.0) % Glucose 101 H (74-99) mg/dL POC Glucose (mg/dL) 138 H (75-99) mg/dL Microbiology - Last 24 Hours (Table) 12/24/16 00:00 Gram Stain - Final Foot - Left Wound Culture - Final Pseudomonas aeruginosa Assessment and Plan Plan: 1. [ Acute diabetic foot with right foot osteomyelitis, cultures positive with polymicrobial blanca including enterococcus faecalis,pseudomonas aeruginosa, Staphylococcus and Peptostreptococcus]. 2. [ Diabetes mellitus type 2 , better controlled]. 3. [ Anemia, normocytic of chronic disease]. 4. [ Obesity, BMI 30.1]. 5. [ Gastroesophageal reflux disease]. 6. [ Essential hypertension]. 7. [ Hyperlipidemia]. 8. Degenerative joint disease 9. History of left great toe amputation 10. Remote history of nicotine dependence. 11. Status post PICC line placement. Plan: Continue on current medication regime , Zosyn, monitoring and symptomatic treatment. Discharge planning in progress pending IV antibiotic authorization. Maintain supportive care. Further recommendations to follow. The impression and plan of care has been dictated as directed. : I performed a H&P examination of this patient and discussed the same with the dictator. I agree with the dictator's note. Any additional findings/opinions/ etc. will be noted.
[2016-12-27 17:12] LABS: Glucose,Whole Blood 86 mg/dL (75-99)
[2016-12-27 20:45] LABS: Glucose,Whole Blood 213 mg/dL (75-99)
[2016-12-27] MEDS: MELATONIN 3 MG TABLET PO SCH (22:33)
[2016-12-27] MEDS: ATORVASTATIN 40 MG TAB PO SCH (22:34)
[2016-12-28] MEDS: PIPERACILLIN-TAZOBACTAM 3.375 GM in DEXTROSE/WATER 1 50ML.BAG IVPB SCH ×3 (00:13→16:23)
[2016-12-28] MEDS: ALPRAZolam 0.25 MG TAB PO PRN ×4 (04:10→22:00)
[2016-12-28] MEDS: HYDROcodone/APAP 10-325MG 1 EACH TAB PO PRN ×4 (04:10→22:01)
[2016-12-28 07:36] VITALS: RESP 16
[2016-12-28 07:40] LABS: Glucose,Whole Blood 93 mg/dL (75-99)
[2016-12-28 07:46] LABS: Basophils # (A) 0.1 k/uL (0-0.2); Basophils % (A) 1 %; CH 29.8; CHCM 34.7; Eosinophils # (A) 0.2 k/uL (0-0.7); Eosinophils % (A) 2 %; HCT 33.8 % (39.0-53.0); HDW 2.85; HGB 11.8 gm/dL (13.0-17.5); Luc # (Auto) 0.15; Luc % (Auto) 2; Lymphocytes # (A) 1.9 k/uL (1.0-4.8); Lymphocytes % (A) 26 %; MCH 30.1 pg (25.0-35.0); MCHC 34.9 g/dL (31.0-37.0); MCV 86.2 fL (80.0-100.0); Mean Platelet Volume 7.1; Monocytes # (A) 0.4 k/uL (0-1.0); Monocytes % (A) 6 %; Neutrophils # (A) 4.6 k/uL (1.3-7.7); Neutrophils % (A) 64 %; RBC 3.92 m/uL (4.30-5.90); RDW 12.9 % (11.5-15.5); WBC 7.3 k/uL (3.8-10.6)
[2016-12-28] MEDS: INSULIN LISPRO (humaLOG) 300 UNIT/3 ML VIAL SQ SCH ×4 (07:54→20:47)
[2016-12-28 08:10] LABS: Anion Gap 12 mmol/L; Blood Urea Nitrogen 17 mg/dL (9-20); Calcium 9.6 mg/dL (8.4-10.2); Carbon Dioxide 25 mmol/L (22-30); Chloride 102 mmol/L (98-107); Glucose 86 mg/dL (74-99); Non-African American GFR(MDRD) >60 (>60 ml/min/1.73 sqM); Potassium 4.5 mmol/L (3.5-5.1); Sodium 139 mmol/L (137-145)
[2016-12-28] MEDS: DILTIAZEM CD 300 MG CAP.ER.24H PO SCH (08:42)
[2016-12-28] MEDS: HEPARIN SODIUM,PORCINE 5,000 UNIT/ML 1 ML VIAL SQ SCH ×2 (08:42→20:47)
[2016-12-28] MEDS: glipiZIDE 10 MG TAB PO SCH ×2 (08:42→17:55)
[2016-12-28] MEDS: VARENICLINE 1 MG TAB PO SCH ×2 (08:43→20:46)
[2016-12-28] MEDS: HYDROCHLOROTHIAZIDE 25 MG TAB PO SCH (08:43)
[2016-12-28] MEDS: metFORMIN 500 MG TAB PO SCH ×2 (08:43→20:47)
[2016-12-28] MEDS: PANTOPRAZOLE 40 MG TABLET PO SCH (08:43)
[2016-12-28] MEDS: LOSARTAN 50 MG TAB PO SCH (08:43)
[2016-12-28] MEDS: TAMSULOSIN 0.4 MG CAP.ER.24H PO SCH (08:43)
[2016-12-28] MEDS: BACITRACIN 500 UNIT/GM OINT 28.4 GM TUBE TOPICAL SCH (08:44)
[2016-12-28] MEDS: SODIUM CHLORIDE 0.9% 1,000 ML IV SCH (08:44)
[2016-12-28 11:33] LABS: Glucose,Whole Blood 197 mg/dL (75-99)
--- NOTE | 2016-12-28 13:05 | P.PN ---
Subjective Date of service 12/28/2016. Progress note being dictated for Dr. Bhat. Interval history: This is a 66-year-old gentleman admitted with left foot osteomyelitis, wound culture positive for pseudomonas aeruginosa and multiple other medical issues. Significant clinical improvement on Zosyn. Case management obtaining authorization from [facility]. Denies chest pain, palpitations or increasing shortness of breath. Afebrile. Objective - Vital Signs Vital signs: Vital Signs Temp 97.1 F L 12/28/16 07:35 Pulse 74 12/28/16 08:00 Resp 16 12/28/16 08:00 BP 116/64 12/28/16 07:35 Pulse Ox 94 L 12/28/16 07:35 Intake & Output 12/27/16 12/28/16 12/28/16 18:59 06:59 18:59 Intake Total 640 Output Total 600 300 Balance 40 -300 Weight 103.419 kg Intake: Oral 640 Output: Urine 600 300 Other: Voiding Method Toilet Toilet Urinal Urinal # Voids 2 2 # Bowel Movements 0 0 - Exam PHYSICAL EXAM: VITAL SIGNS: As above GENERAL: [Sitting up in, bed, no acute distress] HEENT: [Pupils equal conjunctiva normal. NECK: [Supple, no JVD] RESPIRATORY EFFORT:[normal LUNGS: bilateral bases diminished, no wheezing, rhonchi or crackles]] CARDIOVASCULAR[ regular S1 and S2, no murmurs rubs or gallops, decreasing edema] GI: [Abdomen soft, nontender, positive bowel sounds.] PSYCH: [Alert and oriented -3, mood and affect normal.] SKIN: Dressing clean dry and intact NEURO: [No focal deficits.] - Labs CBC & Chem 7: 12/28/16 07:11 12/28/16 07:11 Labs: Abnormal Lab Results - Last 24 Hours (Table) 12/27/16 12/28/16 12/28/16 Range/Units 20:43 07:11 11:30 RBC 3.92 L (4.30-5.90) m/uL Hgb 11.8 L (13.0-17.5) gm/dL Hct 33.8 L (39.0-53.0) % POC Glucose (mg/dL) 213 H 197 H (75-99) mg/dL Assessment and Plan Plan: 1. [ Acute diabetic foot with right foot osteomyelitis, cultures positive with polymicrobial blanca including enterococcus faecalis,pseudomonas aeruginosa, Staphylococcus and Peptostreptococcus]. 2. [ Diabetes mellitus type 2 , better controlled]. 3. [ Anemia, normocytic of chronic disease]. 4. [ Obesity, BMI 30.1]. 5. [ Gastroesophageal reflux disease]. 6. [ Essential hypertension]. 7. [ Hyperlipidemia]. 8. Degenerative joint disease 9. History of left great toe amputation 10. Remote history of nicotine dependence. 11. Status post PICC line placement. Plan: Continue on current medication regime , Zosyn, monitoring and symptomatic treatment. Discharge planning in progress pending IV antibiotic [facility] authorization. Maintain supportive care. Further recommendations to follow. The impression and plan of care has been dictated as directed. : I performed a H&P examination of this patient and discussed the same with the dictator. I agree with the dictator's note. Any additional findings/opinions/ etc. will be noted.
[2016-12-28 17:13] LABS: Glucose,Whole Blood 154 mg/dL (75-99)
[2016-12-28 20:32] LABS: Glucose,Whole Blood 139 mg/dL (75-99)
[2016-12-28] MEDS: MELATONIN 3 MG TABLET PO SCH (20:46)
[2016-12-28] MEDS: ATORVASTATIN 40 MG TAB PO SCH (20:47)
--- NOTE | 2016-12-28 21:05 | PN ---
DATE OF SERVICE: 12/27/2016 REASON FOR FOLLOWUP: Left foot osteomyelitis with pseudomonas. INTERVAL HISTORY: The patient is afebrile. He is feeling better, breathing comfortably. He is currently waiting for outpatient antibiotic arrangements per insurance. Denies significant chest pain. No shortness or breath or cough and no diarrhea. On examination, blood pressure is 101/51 with a pulse of 67, temperature 97.4. He is 95% on room air. General description is an elderly male lying in bed in no distress. RESPIRATORY SYSTEM: Unlabored breathing. Clear to auscultation anteriorly. HEART: S1, S2. Regular rate and rhythm. ABDOMEN: Soft. No tenderness. LABS: Hemoglobin is 11.3, white count 7.3. BUN of 15, creatinine of 0.91. Sed rate of 46. Cultures here are pseudomonas. DIAGNOSTIC IMPRESSION AND PLAN: Patient with left foot osteomyelitis involving the second metatarsal head, status post surgery at [facility]. Cultures at that facility showed multiple pathogens, including peptostreptococcus, pseudomonas, enterococcus. Here cultures are only showing pseudomonas species. Currently he is on Zosyn. That will be continued in the outpatient setting for at least 6 weeks with weekly monitoring of blood work and outpatient followup. Continue supportive care. MTDD
[2016-12-29] MEDS: PIPERACILLIN-TAZOBACTAM 3.375 GM in DEXTROSE/WATER 1 50ML.BAG IVPB SCH ×3 (00:26→14:05)
[2016-12-29] MEDS: SODIUM CHLORIDE 0.9% 1,000 ML IV SCH ×2 (02:36→13:34)
[2016-12-29] MEDS: ALPRAZolam 0.25 MG TAB PO PRN ×3 (03:58→16:05)
[2016-12-29] MEDS: HYDROcodone/APAP 10-325MG 1 EACH TAB PO PRN ×3 (03:58→16:02)
[2016-12-29] MEDS: INSULIN LISPRO (humaLOG) 300 UNIT/3 ML VIAL SQ SCH ×3 (07:13→18:12)
[2016-12-29 07:14] LABS: Glucose,Whole Blood 106 mg/dL (75-99)
[2016-12-29] MEDS: PANTOPRAZOLE 40 MG TABLET PO SCH (08:00)
[2016-12-29] MEDS: glipiZIDE 10 MG TAB PO SCH ×2 (08:00→18:12)
[2016-12-29 08:20] LABS: Basophils # (A) 0.1 k/uL (0-0.2); Basophils % (A) 1 %; CH 29.2; Eosinophils # (A) 0.2 k/uL (0-0.7); Eosinophils % (A) 3 %; HCT 34.8 % (39.0-53.0); HDW 2.88; HGB 12.1 gm/dL (13.0-17.5); Luc # (Auto) 0.22; Luc % (Auto) 3; Lymphocytes # (A) 1.5 k/uL (1.0-4.8); Lymphocytes % (A) 21 %; MCH 29.9 pg (25.0-35.0); MCHC 34.6 g/dL (31.0-37.0); MCV 86.3 fL (80.0-100.0); Mean Platelet Volume 7.1; Monocytes # (A) 0.5 k/uL (0-1.0); Monocytes % (A) 7 %; Neutrophils # (A) 4.8 k/uL (1.3-7.7); Neutrophils % (A) 66 %; RBC 4.04 m/uL (4.30-5.90); RDW 12.6 % (11.5-15.5); WBC 7.2 k/uL (3.8-10.6); WBC (Perox) 7.91
[2016-12-29] MEDS: metFORMIN 500 MG TAB PO SCH (08:31)
[2016-12-29] MEDS: HEPARIN SODIUM,PORCINE 5,000 UNIT/ML 1 ML VIAL SQ SCH (08:31)
[2016-12-29] MEDS: VARENICLINE 1 MG TAB PO SCH (08:32)
[2016-12-29] MEDS: HYDROCHLOROTHIAZIDE 25 MG TAB PO SCH (08:32)
[2016-12-29] MEDS: TAMSULOSIN 0.4 MG CAP.ER.24H PO SCH (08:32)
[2016-12-29] MEDS: LOSARTAN 50 MG TAB PO SCH (08:33)
[2016-12-29] MEDS: BACITRACIN 500 UNIT/GM OINT 28.4 GM TUBE TOPICAL SCH (08:34)
[2016-12-29 08:37] LABS: Anion Gap 12 mmol/L; Blood Urea Nitrogen 19 mg/dL (9-20); Calcium 9.4 mg/dL (8.4-10.2); Carbon Dioxide 26 mmol/L (22-30); Chloride 101 mmol/L (98-107); Glucose 153 mg/dL (74-99); Non-African American GFR(MDRD) >60 (>60 ml/min/1.73 sqM); Potassium 4.4 mmol/L (3.5-5.1); Sodium 139 mmol/L (137-145)
[2016-12-29] MEDS: DILTIAZEM CD 300 MG CAP.ER.24H PO SCH (09:06)
--- NOTE | 2016-12-29 09:16 | PN ---
DATE OF SERVICE: 12/27/2016 This 66-year-old gentleman admitted with significant osteomyelitis has been closely monitored. The patient had polymicrobial blanca. A PICC line has been inserted and IV antibiotics arranged in the outpatient setting. Seen and evaluated the patient along with nurse practitioner. Please refer to nurse practitioner notes and impression documented for further information. Prognosis guarded. MTDD
[2016-12-29 12:09] LABS: Glucose,Whole Blood 145 mg/dL (75-99)
[2016-12-29 15:12] VITALS: BP 102/56; PULSE 73; TEMP 97.9
--- NOTE | 2016-12-29 15:34 | P.PN ---
Progress Note - Text Date of service is 12/29/2016. Reason for follow-up : Pseudomonas left foot osteomyelitis Interval history: The patient is afebrile, the pt denies significant chest pain shortness of breath or cough no abdominal pain or any diarrhea. The patient denies significant pain in his left foot area, per the electrician constructor supervisor his outpatient IV antibiotics has been approved for possible discharge later today Examination: Blood pressure is 154/77 pulse of 84 temperature 97.7 and she's 100 % on room air GENERAL DESCRIPTION: Elderly male lying in bed in no distress RESPIRATORY SYSTEM: Unlabored breathing , decreased breath sounds at bases HEART: S1 S2 regular rate and rhythm ,no loud murmurs ABDOMEN: Soft , no tenderness EXTREMITI left foot is currently dressed up no obvious drainage Impression and plan: Patient with polymicrobial including Pseudomonas left foot osteomyelitis , patient responding to Zosyn and that will be continued 4.5 every 8hrs for total of 6 weeks with weekly monitoring of CBC BMP and sedimentation rate and follow-up in the office in 2 weeks' time
[2016-12-29 17:16] LABS: Glucose,Whole Blood 155 mg/dL (75-99)
--- NOTE | 2016-12-29 18:20 | P.PN ---
Subjective Date of service 12/29/2016. Progress note being dictated for Dr. Bhat. Interval history: This is a 66-year-old gentleman admitted with left foot osteomyelitis, wound culture positive for pseudomonas aeruginosa and multiple other medical issues. Significant clinical improvement on Zosyn. Good diet intake with no nausea vomiting or diarrhea. Authorization from [facility] in progress. Denies chest pain, palpitations or increasing shortness of breath. Afebrile. Objective - Vital Signs Vital signs: Vital Signs Temp 97.7 F 12/29/16 07:00 Pulse 76 12/29/16 08:00 Resp 16 12/29/16 08:00 BP 110/61 12/29/16 07:00 Pulse Ox 95 12/29/16 07:00 Intake & Output 12/28/16 12/29/16 12/29/16 18:59 06:59 18:59 Intake Total 200 Output Total 0 Balance 200 Weight 103.419 kg Intake: Oral 200 Output: Urine 0 Other: Voiding Method Toilet Toilet Urinal Urinal # Voids 2 2 # Bowel Movements 1 - Exam PHYSICAL EXAM: VITAL SIGNS: As above GENERAL: [Sitting up in, bed, no acute distress] HEENT: [Pupils equal conjunctiva normal. Oral mucosa moist NECK: [Supple, no JVD] RESPIRATORY EFFORT:[normal LUNGS: bilateral bases diminished, no wheezing, rhonchi or crackles]] CARDIOVASCULAR[ regular S1 and S2, no murmurs rubs or gallops, decreasing edema] GI: [Abdomen soft, nontender, positive bowel sounds.] PSYCH: [Alert and oriented -3, mood and affect normal.] SKIN: Dressing clean dry and intact NEURO: [No focal deficits.] - Labs CBC & Chem 7: 12/29/16 08:03 12/29/16 08:03 Labs: Abnormal Lab Results - Last 24 Hours (Table) 12/28/16 12/28/16 12/29/16 Range/Units 17:09 20:30 07:11 RBC (4.30-5.90) m/uL Hgb (13.0-17.5) gm/dL Hct (39.0-53.0) % Glucose (74-99) mg/dL POC Glucose (mg/dL) 154 H 139 H 106 H (75-99) mg/dL 12/29/16 12/29/16 12/29/16 Range/Units 08:03 08:03 11:59 RBC 4.04 L (4.30-5.90) m/uL Hgb 12.1 L (13.0-17.5) gm/dL Hct 34.8 L (39.0-53.0) % Glucose 153 H (74-99) mg/dL POC Glucose (mg/dL) 145 H (75-99) mg/dL Assessment and Plan Plan: 1. [ Acute diabetic foot with right foot osteomyelitis, cultures positive with polymicrobial blanca including enterococcus faecalis,pseudomonas aeruginosa, Staphylococcus and Peptostreptococcus]. 2. [ Diabetes mellitus type 2 , better controlled]. 3. [ Anemia, normocytic of chronic disease]. 4. [ Obesity, BMI 30.1]. 5. [ Gastroesophageal reflux disease]. 6. [ Essential hypertension]. 7. [ Hyperlipidemia]. 8. Degenerative joint disease 9. History of left great toe amputation 10. Remote history of nicotine dependence. 11. Status post PICC line placement. Plan: Continue on current medication regime , Zosyn, monitoring and symptomatic treatment. Discharge planning pending IV antibiotic [facility] authorization. Maintain supportive care. Further recommendations to follow. The impression and plan of care has been dictated as directed. : I performed a H&P examination of this patient and discussed the same with the dictator. I agree with the dictator's note. Any additional findings/opinions/ etc. will be noted.
--- NOTE | 2016-12-31 05:53 | PN ---
DATE OF SERVICE: 12/28/2016 Reason for followup is left foot osteomyelitis with Pseudomonas. INTERVAL HISTORY: The patient is afebrile. He is breathing comfortably. He is currently awaiting for the insurance ( ) for outpatient IV antibiotic approval. The patient denies significant chest pain. No shortness of breath or cough. No abdominal pain. No nausea, vomiting or any diarrhea. On examination, blood pressure 116/64 with a pulse of 74, temperature 97.1. He is 94% on room air. General description is an elderly male lying in bed, in no distress. RESPIRATORY SYSTEM: Unlabored breathing. Clear to auscultation anteriorly. HEART: S1 and S2, regular rate and rhythm. ABDOMEN: Soft, no tenderness. Left foot is currently dressed. No obvious drainage on the dressing. LABS: Hemoglobin 11.1, white count 7.3. BUN of 17, creatinine 0.97. DIAGNOSTIC IMPRESSION AND PLAN: The patient with left foot osteomyelitis second metatarsal head. Plan at this time is to continue with Zosyn while awaiting for the insurance approval. Once approved, he is ready to go home from my decision part. Continue antibiotics for at least 6 weeks with outpatient followup. LEEANNE
--- NOTE | 2016-12-31 10:00 | PN ---
DATE OF SERVICE: 12/28/2016 This 66-year-old gentleman who was admitted with possible osteomyelitis, is being closely monitored. food beverage manager and foster care social worker are working for outpatient antibiotics. Seen and evaluated the patient along with nurse practitioner. Please refer to the nurse practitioner notes and patient documented as scribe for further information. LEEANNE
== END 2016-12-29 18:16 | disposition home health service (06) | DRG 638 ==
LOC: EC 12:16 → 4MS4W 17:00
PROVIDERS: ADMIT Hospitalist; ATTEND Hospitalist
PROC: 02HV33Z Insertion of Infusion Device into Superior Vena Cava, Percutaneous Approach (ICD-10-PCS; principal; 2016-12-26 08:30)
DX: E11.69 Type 2 diabetes mellitus with other specified complication (principal); M86.172 Other acute osteomyelitis, left ankle and foot; E11.621 Type 2 diabetes mellitus with foot ulcer; E11.65 Type 2 diabetes mellitus with hyperglycemia; I10 Essential (primary) hypertension; E78.5 Hyperlipidemia, unspecified; E11.628 Type 2 diabetes mellitus with other skin complications; B96.5 Pseudomonas (aeruginosa) (mallei) (pseudomallei) as the cause of diseases classified elsewhere; L08.9 Local infection of the skin and subcutaneous tissue, unspecified; L97.529 Non-pressure chronic ulcer of other part of left foot with unspecified severity; D63.8 Anemia in other chronic diseases classified elsewhere; K21.9 Gastro-esophageal reflux disease without esophagitis; M19.90 Unspecified osteoarthritis, unspecified site; R53.1 Weakness; E66.9 Obesity, unspecified; Z68.30 Body mass index [BMI] 30.0-30.9, adult; Z89.412 Acquired absence of left great toe; Z88.1 Allergy status to other antibiotic agents; Z87.891 Personal history of nicotine dependence; Z79.84 Long term (current) use of oral hypoglycemic drugs; Z79.891 Long term (current) use of opiate analgesic; Z79.899 Other long term (current) drug therapy; Z88.2 Allergy status to sulfonamides; Z88.8 Allergy status to other drugs, medicaments and biological substances; Z71.3 Dietary counseling and surveillance
CPT/HCPCS: 36415; 36569; 71020; 76937; 77001; 78315; 80048; 80202; 81003; 83036; 83605; 85025; 85652; 87070; 87077; 87186; 87205; 94640

== ENCOUNTER 2017-11-03 06:36 | Day surgery (SDC) | payer MEDICARE, OTHER ==
[2017-11-01 17:31] VITALS: BMI 30.3
[~2017-11-03 06:36] MED LIST: LACTATED RINGERS 1,000 ML IV SCH; LIDOCAINE 1% 20 ML VIAL (10MG/ML) FOR IV START INTRADERMA PRN; MIDAZOLAM 2 MG/2 ML VIAL IV PRN
[2017-11-03 07:06] VITALS: RESP 16; TEMP 98.3
[2017-11-03 07:23] LABS: Glucose,Whole Blood 159 mg/dL (75-99)
[2017-11-03] MEDS ORDERED: PROPOFOL 10 MG/ML 20 ML VIAL IV ONE (08:12)
--- NOTE | 2017-11-03 08:41 | P.PCN ---
Date of Procedure: 11/03/17 Procedure(s) Performed: BRIEF HISTORY: Patient is a 67-year-old pleasant white male, scheduled for an elective colonoscopy as a part of prior history of colon polyps. His last endoscopy was done 8 years ago. PROCEDURE PERFORMED: Colonoscopy with snare polypectomy. PREOPERATIVE DIAGNOSIS: History of colon polyps. IV sedation per Anesthesia. PROCEDURE: After informed consent was obtained, the patient, was brought into the endoscopy unit. IV sedation was administered by Anesthesia under continuous monitoring. Digital rectal examination was normal. Initially the Olympus CF- 160 flexible video colonoscope was then inserted in the rectum, gradually advanced into the cecum without any difficulty. Careful examination was performed as the scope was gradually being withdrawn. Ileocecal valve and the appendiceal orifice were visualized and appeared normal. Prep was excellent. Mucosa of the cecum, ascending colon, transverse colon appeared normal. In the descending colon there were 2 sessile polyps measuring 5 mm and 7 mm in size both of which were removed by snare polypectomy. The rest of the descending colon, sigmoid colon, and rectum appeared normal. Retroflexion was performed in the rectum and no lesions were seen. The patient tolerated the procedure well. IMPRESSION: 5 mm and 7 mm these colon polyps status post polypectomy Rest of the colon appeared normal RECOMMENDATIONS: Findings of this examination were discussed with the patient as his family. He was advised to follow with the biopsy results and if the biopsy shows a tubular adenoma, he can have a repeat colonoscopy in 5 years.
[2017-11-03 09:05] VITALS: BP 133/77; PULSE 85
== END 2017-11-03 09:16 | disposition home or self-care (01) ==
LOC: ORWHC2ENDO 06:36
PROVIDERS: ATTEND Internal Medicine Gastroenterology
DX: Z12.11 Encounter for screening for malignant neoplasm of colon (principal); D12.4 Benign neoplasm of descending colon; K63.5 Polyp of colon; Z86.010 Personal history of colon polyps; K21.9 Gastro-esophageal reflux disease without esophagitis; I10 Essential (primary) hypertension; E78.5 Hyperlipidemia, unspecified; E11.9 Type 2 diabetes mellitus without complications; Z79.84 Long term (current) use of oral hypoglycemic drugs; F17.200 Nicotine dependence, unspecified, uncomplicated; Z79.82 Long term (current) use of aspirin; Z79.899 Other long term (current) drug therapy; Z88.1 Allergy status to other antibiotic agents; Z88.2 Allergy status to sulfonamides; Z88.8 Allergy status to other drugs, medicaments and biological substances
CPT/HCPCS: 88305; 45385; J2704

== ENCOUNTER 2021-06-17 16:09 | Inpatient (IN) | payer OTHER, MEDICARE ==
[2021-06-17] MEDS ORDERED: AMPICILLIN-SULBACTAM 3 GM in SODIUM CHLORIDE 0.9% 100 ML IVPB STA (17:48)
[2021-06-17] MEDS ORDERED: VANCOMYCIN IV PER PHARMACY 1 EACH MISC MISCELLANE PRN (17:48)
[2021-06-17] MEDS ORDERED: SODIUM CHLORIDE 0.9% 1,000 ML IV STA (17:49)
--- NOTE | 2021-06-17 17:54 | ED ---
General Adult HPI - General Chief complaint: Extremity Problem,Nontraumatic Stated complaint: L foot sore Time Seen by Provider: 06/17/21 17:21 Source: patient, RN notes reviewed Mode of arrival: ambulatory Limitations: no limitations - History of Present Illness Initial comments: 71-year-old male with a past medical history diabetes mellitus, hyperlipidemia, hypertension, GERD, DVT presents to the emergency room for a chief complaint of left toe infection. Patient states that for the past week he has had an infection of the left foot. States this started on the left second toe and then spread up to the forefoot. Patient states that he was sent from [place]. patient did have his left great toe removed in the past for diabetic wound.Patient has no other complaints at this time including shortness of breath, chest pain, abdominal pain, nausea or vomiting, headache, or visual changes. - Related Data Home Medications Medication Instructions Recorded Confirmed Atorvastatin [Lipitor] 40 mg PO HS 12/23/16 11/03/17 Diltiazem HCl [Diltiazem 24Hr ER] 300 mg PO Q24H 12/23/16 11/03/17 Losartan Potassium [Cozaar] 100 mg PO DAILY 12/23/16 11/01/17 Omeprazole [PriLOSEC] 20 mg PO AC-BRKFST 12/23/16 11/01/17 Sennosides [Senna] 8.6 mg PO DAILY PRN 12/23/16 11/03/17 Tamsulosin HCl [Flomax] 0.4 mg PO DAILY 12/23/16 11/01/17 glipiZIDE [Glucotrol] 20 mg PO BID 12/23/16 11/03/17 metFORMIN HCL [Glucophage] 1,000 mg PO BID 12/23/16 11/03/17 Aspirin [Adult Low Dose Aspirin EC] 81 mg PO DAILY 11/01/17 11/01/17 Gabapentin 1 tab PO TID PRN 11/01/17 11/03/17 Allergies Allergy/AdvReac Type Severity Reaction Status Date / Time sulfamethoxazole Allergy Severe joint pain Verified 06/17/21 20:03 [From Bactrim] ciprofloxacin [From Cipro] Allergy joint pain Verified 06/17/21 20:03 lisinopril Allergy joint pain Verified 06/17/21 20:03 trimethoprim [From Bactrim] Allergy Unknown Verified 06/17/21 20:03 Review of Systems ROS Statement: Those systems with pertinent positive or pertinent negative responses have been documented in the HPI. ROS Other: All systems not noted in ROS Statement are negative. Past Medical History Past Medical History: Diabetes Mellitus, Deep Vein Thrombosis (DVT), GERD/Reflux, Hyperlipidemia, Hypertension, Prostate Disorder History of Any Multi-Drug Resistant Organisms: None Reported Past Surgical History: Orthopedic Surgery, Tonsillectomy Additional Past Surgical History / Comment(s): LEFT foot 2CND TOE RIGHT elbow LEFT great toe amputation, GERMAIN CATARACTS Past Anesthesia/Blood Transfusion Reactions: No Reported Reaction Past Psychological History: No Psychological Hx Reported Smoking Status: Current every day smoker Past Alcohol Use History: None Reported Past Drug Use History: None Reported - Past Family History Father Family Medical History: No Reported History General Exam Limitations: no limitations General appearance: alert, in no apparent distress Head exam: Present: atraumatic Eye exam: Present: normal appearance, PERRL, EOMI. Absent: scleral icterus, conjunctival injection ENT exam: Present: normal exam, mucous membranes moist Neck exam: Present: normal inspection, full ROM. Absent: tenderness Respiratory exam: Present: normal lung sounds bilaterally. Absent: respiratory distress, wheezes Cardiovascular Exam: Present: regular rate, normal rhythm, normal heart sounds Extremities exam: Present: other (Erythematous left forefoot with edema noted especially of the left second and third toes) Course Vital Signs 06/17/21 16:34 Temperature 99.0 F Pulse Rate 97 Respiratory 19 Rate Blood Pressure 166/68 O2 Sat by Pulse 97 Oximetry Medical Decision Making - Medical Decision Making Vitals are stable. Patient is well appearing. Patient does have cellulitis of the left foot with a diabetic wound on the left second toe which is very edematous. Laboratory evaluation unremarkable. X-ray does show soft tissue swelling of the forefoot but no osteomalacia or free air. Ultrasound negative for DVT. COVID-19 is negative. Patient will need to come in for IV antibioti cs. Started on vancomycin and Unasyn. Consulted ID. EM does accept the admission - Lab Data Result diagrams: 06/17/21 17:51 06/17/21 17:51 Lab Results 06/17/21 06/17/21 06/17/21 Range/Units 17:51 17:51 17:51 WBC 9.4 (3.8-10.6) k/uL RBC 4.61 (4.30-5.90) m/uL Hgb 14.0 (13.0-17.5) gm/dL Hct 41.7 (39.0-53.0) % MCV 90.4 (80.0-100.0) fL MCH 30.4 (25.0-35.0) pg MCHC 33.6 (31.0-37.0) g/dL RDW 12.9 (11.5-15.5) % Plt Count 286 (150-450) k/uL MPV 7.4 Neutrophils % 77 % Lymphocytes % 13 % Monocytes % 6 % Eosinophils % 2 % Basophils % 1 % Neutrophils # 7.2 (1.3-7.7) k/uL Lymphocytes # 1.3 (1.0-4.8) k/uL Monocytes # 0.5 (0-1.0) k/uL Eosinophils # 0.2 (0-0.7) k/uL Basophils # 0.0 (0-0.2) k/uL Sodium 138 (137-145) mmol/L Potassium 4.4 (3.5-5.1) mmol/L Chloride 105 (98-107) mmol/L Carbon Dioxide 22 (22-30) mmol/L Anion Gap 11 mmol/L BUN 20 (9-20) mg/dL Creatinine 1.02 (0.66-1.25) mg/dL Est GFR (CKD-EPI)AfAm 85 (>60 ml/min/1.73 sqM) Est GFR (CKD-EPI)NonAf 73 (>60 ml/min/1.73 sqM) Glucose 229 H (74-99) mg/dL Plasma Lactic Acid Espinoza 0.9 (0.7-2.0) mmol/L Calcium 9.0 (8.4-10.2) mg/dL Total Bilirubin 0.5 (0.2-1.3) mg/dL AST 17 (17-59) U/L ALT 9 (4-49) U/L Alkaline Phosphatase 69 (38-126) U/L Total Protein 6.9 (6.3-8.2) g/dL Albumin 3.8 (3.5-5.0) g/dL Coronavirus (PCR) (Not Detectd) 06/17/21 Range/Units 19:07 WBC (3.8-10.6) k/uL RBC (4.30-5.90) m/uL Hgb (13.0-17.5) gm/dL Hct (39.0-53.0) % MCV (80.0-100.0) fL MCH (25.0-35.0) pg MCHC (31.0-37.0) g/dL RDW (11.5-15.5) % Plt Count (150-450) k/uL MPV Neutrophils % % Lymphocytes % % Monocytes % % Eosinophils % % Basophils % % Neutrophils # (1.3-7.7) k/uL Lymphocytes # (1.0-4.8) k/uL Monocytes # (0-1.0) k/uL Eosinophils # (0-0.7) k/uL Basophils # (0-0.2) k/uL Sodium (137-145) mmol/L Potassium (3.5-5.1) mmol/L Chloride (98-107) mmol/L Carbon Dioxide (22-30) mmol/L Anion Gap mmol/L BUN (9-20) mg/dL Creatinine (0.66-1.25) mg/dL Est GFR (CKD-EPI)AfAm (>60 ml/min/1.73 sqM) Est GFR (CKD-EPI)NonAf (>60 ml/min/1.73 sqM) Glucose (74-99) mg/dL Plasma Lactic Acid Espinoza (0.7-2.0) mmol/L Calcium (8.4-10.2) mg/dL Total Bilirubin (0.2-1.3) mg/dL AST (17-59) U/L ALT (4-49) U/L Alkaline Phosphatase (38-126) U/L Total Protein (6.3-8.2) g/dL Albumin (3.5-5.0) g/dL Coronavirus (PCR) Not Detected (Not Detectd) Disposition Clinical Impression: Cellulitis, Diabetes mellitus Disposition: ADMITTED IP TO THIS HOSP Is patient prescribed a controlled substance at d/c from ED?: No Referrals: [facility],Clinic [Primary Care Provider] - 1-2 days Time of Disposition: 20:04
[2021-06-17] MEDS ORDERED: VANCOMYCIN 1,750 MG in SODIUM CHLORIDE 0.9% 500 ML 500 ML IVPB STA (17:56)
[2021-06-17 18:03] LABS: Basophils % (A) 1 %; Eosinophils # (A) 0.2 k/uL (0-0.7); Eosinophils % (A) 2 %; HCT 41.7 % (39.0-53.0); Lymphocytes # (A) 1.3 k/uL (1.0-4.8); Lymphocytes % (A) 13 %; MCH 30.4 pg (25.0-35.0); MCHC 33.6 g/dL (31.0-37.0); MCV 90.4 fL (80.0-100.0); Mean Platelet Volume 7.4; Monocytes # (A) 0.5 k/uL (0-1.0); Monocytes % (A) 6 %; Neutrophils # (A) 7.2 k/uL (1.3-7.7); Neutrophils % (A) 77 %; Platelet Count 286 k/uL (150-450); RBC 4.61 m/uL (4.30-5.90); RDW 12.9 % (11.5-15.5); WBC 9.4 k/uL (3.8-10.6)
[2021-06-17 18:23] LABS: Albumin 3.8 g/dL (3.5-5.0); Potassium 4.4 mmol/L (3.5-5.1); Total Bilirubin 0.5 mg/dL (0.2-1.3); Total Protein 6.9 g/dL (6.3-8.2)
--- NOTE | 2021-06-17 18:32 | XR ---
PROCEDURE: XR foot complete LT - 3V DATE AND TIME: 06/17/2021 6:09 PM CLINICAL INDICATION: PHH; cellulitis, TECHNIQUE: Department protocol COMPARISON: 12/23/2016 radiographs FINDINGS: Soft tissues: There is soft tissue swelling of the forefoot. No radiopaque foreign body. No soft tiss ue emphysema. Skeletal structures: The cortices are intact without focal osteopenia or definite focal osteosclerosi s. IMPRESSION: 1. Negative for osteomyelitis by radiographic criteria. 2. Forefoot soft tissue tissue swelling noted.
--- NOTE | 2021-06-17 19:22 | US ---
EXAMINATION TYPE: US venous doppler duplex LE LT DATE OF EXAM: 06/17/2021 6:55 PM COMPARISON: NONE CLINICAL HISTORY: swelling. Swelling. No hx of DVT. Patient not taking blood thinners. SIDE PERFORMED: Left TECHNIQUE: The lower extremity deep venous system is examined utilizing real time linear array sonog lacey with graded compression, doppler sonography and color-flow sonography. VESSELS IMAGED: Common Femoral Vein Deep Femoral Vein Greater Saphenous Vein * Femoral Vein Popliteal Vein Small Saphenous Vein * Proximal Calf Veins (* superficial vessels) DESCRIPTION: No direct or indirect evidence of filling defect within the deep venous system of the le ft lower extremity. Other: Left inguinal lymph nodes incidentally noted. IMPRESSION: NEGATIVE FOR DEEP VENOUS THROMBOSIS, LEFT LOWER EXTREMITY.
[2021-06-17] MEDS ORDERED: MORPHINE SULFATE 4 MG/ML SYRINGE IVP STA (19:28)
[2021-06-17] MEDS ORDERED: NALOXONE 0.4 MG/ML 1 ML VIAL IV PRN (20:04)
[2021-06-17] MEDS: SODIUM CHLORIDE 0.9% 1,000 ML IV SCH (20:33)
[2021-06-18] MEDS: AMPICILLIN-SULBACTAM 3 GM in SODIUM CHLORIDE 0.9% 100 ML IVPB SCH ×5 (02:22→23:33)
[2021-06-18 08:05] LABS: Glucose,Whole Blood 140 mg/dL (75-99)
[2021-06-18] MEDS: LOSARTAN 50 MG TAB PO SCH (08:19)
[2021-06-18] MEDS: ASPIRIN 81 MG PO SCH (08:19)
[2021-06-18] MEDS: CHOLECALCIFEROL 25 MCG (1000 IU) TABLET PO SCH (08:19)
[2021-06-18] MEDS: metFORMIN 500 MG TAB PO SCH ×2 (08:20→20:02)
[2021-06-18] MEDS: VANCOMYCIN 1,500 MG in SODIUM CHLORIDE 0.9% 250 ML IVPB SCH ×2 (08:20→19:29)
[2021-06-18] MEDS: INSULIN ASPART (NovoLOG) 100 UNIT/ML VIAL SQ SCH ×4 (08:20→20:02)
--- NOTE | 2021-06-18 08:39 | P.HPIM ---
History of Present Illness This is a pleasant 71 years old male with past medical history of Diabetes Mellitus, Deep Vein Thrombosis not on anticoagulation, GERD,, Hyperlipidemia, Hypertension, benign prostatic hypertrophy Presents with sore on the left second toe he had a blister last week that has worsened. Patient states that he got a new pair of shoes and last week he started developing blister on the top of his third toe, patient has history of limitation of the fourth and fifth toe before. Gradually started getting worse and he went yesterday to see his doctor/WOOL BRUSHER Elaina at the [place] [facility] who referred him to the emergency room Patient denies any specific symptoms. No chest pain or dyspnea. No abdominal pain or vomiting or diarrhea. No urinary complaints. No headache or dizziness or weakness Vitas looks stable patient is afebrile. Labs reviewed including CBC, BMP and liver enzymes are unremarkable. Coronavirus not detected. Ultrasound of the left legs showing no evidence of deep venous thrombosis of his left inguinal lymph node enlarged incidentally found Left foot x-ray: forefoot soft tissue swelling on admission patient was started on IV vancomycin and Unasyn and ID team were consulted. Patient was started on normal saline at 75 mL/h. Review of Systems CONSTITUTIONAL: No fever, no malaise, no fatigue. HEENT: No recent visual problems or hearing problems. Denied any sore throat. CARDIOVASCULAR: No orthopnea, PND, no palpitations, no syncope. PULMONARY: No shortness of breath, no cough, no hemoptysis. GASTROINTESTINAL: No diarrhea, no nausea, no vomiting, no abdominal pain. Normo active bowel sounds. NEUROLOGICAL: No headaches, no weakness, no numbness. HEMATOLOGICAL: Denies any bleeding or petechiae. GENITOURINARY: Denies any burning micturition, frequency, or urgency. MUSCULOSKELETAL/RHEUMATOLOGICAL: Denies any joint pain, swelling, or any muscle pain. ENDOCRINE: Denies any polyuria or polydipsia. Past Medical History Past Medical History: Diabetes Mellitus, Deep Vein Thrombosis (DVT), GERD/Reflux, Hyperlipidemia, Hypertension, Prostate Disorder History of Any Multi-Drug Resistant Organisms: None Reported Past Surgical History: Orthopedic Surgery, Tonsillectomy Additional Past Surgical History / Comment(s): LEFT foot 2CND TOE RIGHT elbow LEFT great toe amputation, GERMAIN CATARACTS Past Anesthesia/Blood Transfusion Reactions: No Reported Reaction Past Psychological History: No Psychological Hx Reported Smoking Status: Current every day smoker Past Alcohol Use History: None Reported Past Drug Use History: None Reported - Past Family History Father Family Medical History: No Reported History Medications and Allergies Home Medications Medication Instructions Recorded Confirmed Type Tamsulosin HCl [Flomax] 0.4 mg PO HS 12/23/16 06/17/21 History metFORMIN HCL [Glucophage] 1,000 mg PO BID 12/23/16 06/17/21 History Aspirin [Adult Low Dose Aspirin EC] 81 mg PO DAILY 11/01/17 06/17/21 History Alogliptin Benzoate [Alogliptin] 25 mg PO DAILY 06/17/21 06/17/21 History Cholecalciferol [Vitamin D3 (25 50 mcg PO DAILY 06/17/21 06/17/21 History Mcg = 1000 Iu)] Empagliflozin [Jardiance] 25 mg PO DAILY 06/17/21 06/17/21 History Glimepiride [Amaryl] 2 mg PO DAILY 06/17/21 06/17/21 History Losartan [Cozaar] 50 mg PO DAILY 06/17/21 06/17/21 History Rosuvastatin Calcium [Crestor] 40 mg PO DAILY 06/17/21 06/17/21 History Allergies Allergy/AdvReac Type Severity Reaction Status Date / Time sulfamethoxazole Allergy Severe joint pain Verified 06/17/21 20:03 [From Bactrim] ciprofloxacin [From Cipro] Allergy joint pain Verified 06/17/21 20:03 lisinopril Allergy joint pain Verified 06/17/21 20:03 trimethoprim [From Bactrim] Allergy Unknown Verified 06/17/21 20:03 Physical Exam Vitals: Vital Signs Temp Pulse Resp BP Pulse Ox 06/18/21 06:16 87 16 124/76 100 06/17/21 16:34 99.0 F 97 19 166/68 97 Intake and Output 06/17/21 06/18/21 06/18/21 22:59 06:59 14:59 Other: Weight 97.522 kg GENERAL: The patient is alert and oriented x3, not in any acute distress. Well developed, well nourished. HEENT: Pupils are round and equally reacting to light. EOMI. No scleral icterus. No conjunctival pallor. Normocephalic, atraumatic. No pharyngeal erythema. No thyromegaly. CARDIOVASCULAR: S1 and S2 present. No murmurs, rubs, or gallops. PULMONARY: Chest is clear to auscultation, no wheezing or crackles. ABDOMEN: Soft, nontender, nondistended, normoactive bowel sounds. No palpable organomegaly. MUSCULOSKELETAL: No joint swelling or deformity. -EXTREMITIES: No cyanosis, clubbing, or pedal edema. Forefoot of the left foot and toes are inflamed, swollen tender and red with some purulent discharge. He is a status post left fourth and fifth toe amputation NEUROLOGICAL: Gross neurological examination did not reveal any focal deficits. SKIN: No rashes. No petechiae Results CBC & Chem 7: 06/17/21 17:51 06/17/21 17:51 Labs: Abnormal Lab Results - Last 24 Hours (Table) 06/17/21 Range/Units 17:51 Glucose 229 H (74-99) mg/dL Assessment and Plan Assessment: Left foot cellulitis with left second toe ruptured blister Diabetes Mellitus Deep Vein Thrombosis not on anticoagulation GERD Hyperlipidemia Hypertension benign prostatic hypertrophy Plan: this is a pleasant 71 years old male who presents with cellulitis Continue with antibiotics, currently on IV vancomycin and Unasyn Infectious disease consult Continue gentle hydration Labs and medication were reviewed.. Continue same treatment. Continue with symptomatic treatment. Resume home medication. Monitor lytes and vitals. DVT and GI prophylaxis. Further recommendations depends on the clinical course of the patient DVT prophylaxis: Subcutaneous heparin GI Prophylaxis: Pepcid PT/OT: Pending Prognosis is guarded
[2021-06-18] MEDS: GLIMEPIRIDE 2 MG TAB PO SCH (09:26)
[2021-06-18] MEDS: SODIUM CHLORIDE 0.9% 1,000 ML IV SCH ×2 (11:28→19:30)
[2021-06-18 11:58] LABS: Glucose,Whole Blood 175 mg/dL (75-99)
--- NOTE | 2021-06-18 14:48 | P.GSCN ---
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 This patient had a intervention done on his second toe about 4 years ago and [facility] the patient they took the piece of bone out from that toe in the past. For the last 1 week patient developed developed open wound on the second toe bone is exposed this with marked redness noted on the dorsal suspect the foot and also of the second toe. There is some drainage noted from the open wound. This patient had a left foot big toe amputation done in the past for wet gangrene of the foot. On examination patient was seen in his room neck is supple no bruit appreciated Chest good and both lungs first and second sound present Abdomen abdomen is soft nontender Vascular examination femorals are palpable bilateral 2+ posterior tibial dorsal pedis by the Doppler left second toe open has a open wound with there are wet gangrene changes marked cellulitis and redness noted on the dorsal suspect the foot Plan is a ray amputation the left foot second toe consent for left foot second toe and nothing by mouth midnight and risk and complication discussed with the patient Past Medical History Past Medical History: Diabetes Mellitus, Deep Vein Thrombosis (DVT), Eye Disorder, GERD/Reflux, Hyperlipidemia, Hypertension, Prostate Disorder Additional Past Medical History / Comment(s): L foot osteomylitis, DJD, DVT R le g, R eye macular degeneration, BPH, benign colon polyps. History of Any Multi-Drug Resistant Organisms: None Reported Past Surgical History: Orthopedic Surgery, Tonsillectomy Additional Past Surgical History / Comment(s): L great toe amputation, L 2nd toe "bones disconnected", colonoscopy with polypectomy, bilateral cataract removals Past Anesthesia/Blood Transfusion Reactions: No Reported Reaction Smoking Status: Current every day smoker - Past Family History Father History Unknown: Yes Family Medical History: No Reported History Mother Family Medical History: No Reported History Additional Family Medical History / Comment(s): Mother was healthy Medications and Allergies Home Medications Medication Instructions Recorded Confirmed Type Tamsulosin HCl [Flomax] 0.4 mg PO HS 12/23/16 06/17/21 History metFORMIN HCL [Glucophage] 1,000 mg PO BID 12/23/16 06/17/21 History Aspirin [Adult Low Dose Aspirin EC] 81 mg PO DAILY 11/01/17 06/17/21 History Alogliptin Benzoate [Alogliptin] 25 mg PO DAILY 06/17/21 06/17/21 History Cholecalciferol [Vitamin D3 (25 50 mcg PO DAILY 06/17/21 06/17/21 History Mcg = 1000 Iu)] Empagliflozin [Jardiance] 25 mg PO DAILY 06/17/21 06/17/21 History Glimepiride [Amaryl] 2 mg PO DAILY 06/17/21 06/17/21 History Losartan [Cozaar] 50 mg PO DAILY 06/17/21 06/17/21 History Rosuvastatin Calcium [Crestor] 40 mg PO DAILY 06/17/21 06/17/21 History Allergies Allergy/AdvReac Type Severity Reaction Status Date / Time sulfamethoxazole Allergy Severe joint pain Verified 06/17/21 20:03 [From Bactrim] ciprofloxacin [From Cipro] Allergy joint pain Verified 06/17/21 20:03 lisinopril Allergy joint pain Verified 06/17/21 20:03 trimethoprim [From Bactrim] Allergy Unknown Verified 06/17/21 20:03 Surgical - Exam Vital Signs Temp Pulse Resp BP Pulse Ox 99.0 F 97 19 166/68 97 06/17/21 16:34 06/17/21 16:34 06/17/21 16:34 06/17/21 16:34 06/17/21 16:34 Results - Labs 06/17/21 17:51 06/17/21 17:51 Abnormal Lab Results - Last 24 Hours (Table) 06/17/21 06/18/21 06/18/21 Range/Units 17:51 08:03 11:56 Glucose 229 H (74-99) mg/dL POC Glucose (mg/dL) 140 H 175 H (75-99) mg/dL Diabetes panel 06/17/21 Range/Units 17:51 Sodium 138 (137-145) mmol/L Potassium 4.4 (3.5-5.1) mmol/L Chloride 105 (98-107) mmol/L Carbon Dioxide 22 (22-30) mmol/L BUN 20 (9-20) mg/dL Creatinine 1.02 (0.66-1.25) mg/dL Glucose 229 H (74-99) mg/dL Calcium 9.0 (8.4-10.2) mg/dL AST 17 (17-59) U/L ALT 9 (4-49) U/L Alkaline Phosphatase 69 (38-126) U/L Total Protein 6.9 (6.3-8.2) g/dL Albumin 3.8 (3.5-5.0) g/dL Calcium panel 06/17/21 Range/Units 17:51 Calcium 9.0 (8.4-10.2) mg/dL Albumin 3.8 (3.5-5.0) g/dL Pituitary panel 06/17/21 Range/Units 17:51 Sodium 138 (137-145) mmol/L Potassium 4.4 (3.5-5.1) mmol/L Chloride 105 (98-107) mmol/L Carbon Dioxide 22 (22-30) mmol/L BUN 20 (9-20) mg/dL Creatinine 1.02 (0.66-1.25) mg/dL Glucose 229 H (74-99) mg/dL Calcium 9.0 (8.4-10.2) mg/dL Adrenal panel 06/17/21 Range/Units 17:51 Sodium 138 (137-145) mmol/L Potassium 4.4 (3.5-5.1) mmol/L Chloride 105 (98-107) mmol/L Carbon Dioxide 22 (22-30) mmol/L BUN 20 (9-20) mg/dL Creatinine 1.02 (0.66-1.25) mg/dL Glucose 229 H (74-99) mg/dL Calcium 9.0 (8.4-10.2) mg/dL Total Bilirubin 0.5 (0.2-1.3) mg/dL AST 17 (17-59) U/L ALT 9 (4-49) U/L Alkaline Phosphatase 69 (38-126) U/L Total Protein 6.9 (6.3-8.2) g/dL Albumin 3.8 (3.5-5.0) g/dL
[2021-06-18 17:13] LABS: Glucose,Whole Blood 380 mg/dL (75-99)
[2021-06-18] MEDS: TAMSULOSIN 0.4 MG CAP.ER.24H PO SCH (20:02)
[2021-06-18 20:05] LABS: Glucose,Whole Blood 147 mg/dL (75-99)
[2021-06-19 04:32] LABS: African American GFR (CKD) >90 (>60 ml/min/1.73 sqM); Non-African American GFR(CKD) 90 (>60 ml/min/1.73 sqM)
[2021-06-19] MEDS: AMPICILLIN-SULBACTAM 3 GM in SODIUM CHLORIDE 0.9% 100 ML IVPB SCH ×4 (05:57→23:33)
[2021-06-19 07:34] LABS: Glucose,Whole Blood 100 mg/dL (75-99)
[2021-06-19] MEDS: INSULIN ASPART (NovoLOG) 100 UNIT/ML VIAL SQ SCH ×4 (07:54→20:24)
[2021-06-19] MEDS: CHOLECALCIFEROL 25 MCG (1000 IU) TABLET PO SCH (08:22)
[2021-06-19] MEDS: LOSARTAN 50 MG TAB PO SCH (08:22)
[2021-06-19] MEDS: VANCOMYCIN 1,500 MG in SODIUM CHLORIDE 0.9% 250 ML IVPB SCH ×2 (08:22→19:02)
[2021-06-19] MEDS: metFORMIN 500 MG TAB PO SCH ×2 (08:22→20:24)
[2021-06-19] MEDS: GLIMEPIRIDE 2 MG TAB PO SCH (08:22)
[2021-06-19] MEDS: ASPIRIN 81 MG PO SCH (08:22)
[2021-06-19] MEDS: COLLAGENASE 250 UNIT/GM OINTMENT 30 GM TUBE TOPICAL SCH (11:19)
[2021-06-19] MEDS ORDERED: IV FLUID CONTINUATION 1,000 ML IV ONE (12:15)
[2021-06-19 12:20] LABS: Glucose,Whole Blood 99 mg/dL (75-99)
[2021-06-19] MEDS ORDERED: LIDOCAINE 1% INJ 10MG/ML (20 ML MDV) SQ ONE ×2 (12:49→13:13)
[2021-06-19] MEDS ORDERED: KETAMINE 10 MG/ML 20 ML VIAL ONE (12:54)
[2021-06-19] MEDS ORDERED: fentaNYL (PF) 50 MCG/ML 2 ML AMP ONE (12:54)
[2021-06-19] MEDS ORDERED: LIDOCAINE 1% INJ 10MG/ML (20 ML MDV) ONE (12:54)
[2021-06-19] MEDS ORDERED: PROPOFOL 10 MG/ML 20 ML VIAL IV ONE (12:54)
[2021-06-19] MEDS ORDERED: MIDAZOLAM 2 MG/2 ML VIAL ONE (12:54)
--- NOTE | 2021-06-19 13:33 | P.PCN ---
Description of Procedure: Preoperative diagnoses is gangrene of the left foot second toe Posterior same Procedure Ray amputation left foot second toe distal part of the operating room left foot was prepped and draped applied sterile manner. With local and IV sedation elliptical incision was made on the dorsal aspect the foot went surgical compunction only around the second toe given through skin fat and fascia tendons were divided and the plantar and dorsal aspect did reach the metatarsal phalangeal joint no active bleeding was noted ligaments were divided at metatarsal phalangeal joint specimen was removed which was sent for deep culture is hemostasis well controlled wound irrigated with saline Santyl cream applied to the wound dressing applied patient tolerated the procedure well and transferred to the recovery room in satisfactory condition
[2021-06-19 14:05] LABS: Glucose,Whole Blood 81 mg/dL (75-99)
[2021-06-19] MEDS: SODIUM CHLORIDE 0.9% 1,000 ML IV SCH ×2 (14:29→20:27)
[2021-06-19 17:52] LABS: Glucose,Whole Blood 342 mg/dL (75-99)
[2021-06-19] MEDS ORDERED: VANCOMYCIN TROUGH DUE 1 EACH MISC MISCELLANE ONE (18:00)
[2021-06-19 20:19] LABS: Glucose,Whole Blood 289 mg/dL (75-99)
--- NOTE | 2021-06-19 20:20 | P.PN ---
Subjective This is a pleasant 71 years old male with past medical history of Diabetes Mellitus, Deep Vein Thrombosis not on anticoagulation, GERD,, Hyperlipidemia, Hypertension, benign prostatic hypertrophy Presents with sore on the left second toe he had a blister last week that has worsened. Patient states that he got a new pair of shoes and last week he started developing blister on the top of his third toe, patient has history of limitation of the fourth and fifth toe before. 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 No chest pain or dyspnea. No abdominal pain or vomiting or diarrhea. No urinary complaints. No headache or dizziness or weakness Vitas looks stable patient is afebrile. Labs reviewed including CBC, BMP and liver enzymes are unremarkable. Coronavirus not detected. Ultrasound of the left legs showing no evidence of deep venous thrombosis of his left inguinal lymph node enlarged incidentally found Left foot x-ray: forefoot soft tissue swelling on admission patient was started on IV vancomycin and Unasyn and ID team were consulted. Patient was started on normal saline at 75 mL/h. 06/19/2021 Patient today is a status post imbrication of the left second toe. Metformin and Amaryl heart in the morning while the patient was nothing by mouth. He is going to be resumed after start eating. He was sitting at bedside. Awake and oriented, as symptomatic feeling hungry pain control at the surgery site. Wound culture is growing gram-negative bacilli Repeat labs tomorrow morning Objective - Vital Signs Vital signs: Vital Signs Temp 98.3 F 06/19/21 12:20 Pulse 75 06/19/21 13:57 Resp 16 06/19/21 13:57 BP 132/66 06/19/21 13:57 Pulse Ox 98 06/19/21 13:57 Intake & Output 06/18/21 06/19/21 06/19/21 18:59 06:59 18:59 Intake Total 1750 225 Output Total 5 Balance 1750 220 Weight 97.522 kg 97.522 kg Intake: IV 225 Intake, IV Titration 1150 Amount Ampicillin-Sulbactam 3 gm 200 In Sodium Chloride 0.9% 100 ml @ 200 mls/hr IVPB Q6H [facility] Rx#:[id number] Sodium Chloride 0.9% 1, 700 000 ml @ 75 mls/hr IV . [id number] [facility] Rx#:[id number] Vancomycin 1,500 mg In 250 Sodium Chloride 0.9% 250 ml @ 125 mls/hr IVPB Q12H [facility] Rx#:[id number] Oral 600 Output: Estimated Blood Loss 5 Other: Voiding Method Urinal # Voids 2 # Bowel Movements 4 - Exam GENERAL: The patient is alert and oriented x3, not in any acute distress. Well developed, well nourished. HEENT: Pupils are round and equally reacting to light. EOMI. No scleral icterus. No conjunctival pallor. Normocephalic, atraumatic. No pharyngeal erythema. No thyromegaly. CARDIOVASCULAR: S1 and S2 present. No murmurs, rubs, or gallops. PULMONARY: Chest is clear to auscultation, no wheezing or crackles. ABDOMEN: Soft, nontender, nondistended, normoactive bowel sounds. No palpable organomegaly. MUSCULOSKELETAL: No joint swelling or deformity. -EXTREMITIES: No cyanosis, clubbing, or pedal edema. Cellulitis of the left forefoot, facilitation of the, dressing in place NEUROLOGICAL: Gross neurological examination did not reveal any focal deficits. SKIN: No rashes. no petechiae. - Labs CBC & Chem 7: 06/17/21 17:51 06/19/21 03:55 Labs: Abnormal Lab Results - Last 24 Hours (Table) 06/18/21 06/18/21 06/19/21 Range/Units 17:05 19:54 07:26 POC Glucose (mg/dL) 380 H 147 H 100 H (75-99) mg/dL Microbiology - Last 24 Hours (Table) 06/18/21 17:40 Wound Culture - Preliminary Toe - Left Second 06/18/21 12:20 Wound Culture - Preliminary Foot - Left 06/18/21 13:21 Anaerobic Culture - Preliminary Foot - Left 06/17/21 17:45 Blood Culture - Preliminary Blood No Growth after 24 hours 06/17/21 18:00 Blood Culture - Preliminary Blood No Growth after 24 hours Assessment and Plan Assessment: Left foot cellulitis with left second toe ruptured blister . Status post application of the left second toe Diabetes Mellitus Deep Vein Thrombosis not on anticoagulation GERD Hyperlipidemia Hypertension benign prostatic hypertrophy Plan: this is a pleasant 71 years old male who presents with cellulitis Continue with antibiotics, currently on IV vancomycin and Unasyn Infectious disease consult Continue gentle hydration Vascular surgery on the case Labs and medication were reviewed.. Continue same treatment. Continue with symptomatic treatment. Resume home medication. Monitor lytes and vitals. DVT and GI prophylaxis. Further recommendations depends on the clinical course of the patient DVT prophylaxis: Subcutaneous heparin GI Prophylaxis: Pepcid PT/OT: Pending Prognosis is guarded
[2021-06-19] MEDS: TAMSULOSIN 0.4 MG CAP.ER.24H PO SCH (20:24)
--- NOTE | 2021-06-19 23:53 | PN ---
PROGRESS NOTE DATE OF SERVICE: 06/19/2021 REASON FOR FOLLOWUP: Left second toe gangrene. INTERVAL HISTORY: Patient is afebrile. The patient was taken to the OR and is status post left second toe amputation. Patient tolerated the procedure. Denies any worsening pain to the left foot area. No chest pain, shortness of breath or cough. No abdominal pain or diarrhea. PHYSICAL EXAMINATION: Blood pressure 103/61, pulse 84, temperature 97.7. He is 95% on room air. General description is an elderly male lying in bed in no distress. Respiratory system: Unlabored breathing, clear to auscultation anteriorly. Heart S1, S2. Regular rate and rhythm. Abdomen soft, no tenderness. Left foot is currently dressed. No obvious drainage on the dressing. DIAGNOSTIC IMPRESSION AND PLAN: Patient with left second toe gangrene status post amputation. Local culture with Staph aureus and gram-negative covered with Unasyn and vancomycin to continue adjusting antibiotic further based on culture report. Continue supportive care. MMODL / IJN: [id number] /
[2021-06-20] MEDS: MORPHINE SULFATE 4 MG/ML SYRINGE IV PRN ×3 (02:07→22:23)
[2021-06-20 05:02] LABS: Basophils % (A) 0 %; Eosinophils # (A) 0.1 k/uL (0-0.7); Eosinophils % (A) 2 %; HGB 12.9 gm/dL (13.0-17.5); Lymphocytes # (A) 0.9 k/uL (1.0-4.8); Lymphocytes % (A) 13 %; MCH 30.5 pg (25.0-35.0); MCHC 33.1 g/dL (31.0-37.0); Mean Platelet Volume 7.5; Monocytes # (A) 0.4 k/uL (0-1.0); Monocytes % (A) 6 %; Neutrophils # (A) 5.3 k/uL (1.3-7.7); Neutrophils % (A) 77 %; Platelet Count 267 k/uL (150-450); RBC 4.23 m/uL (4.30-5.90); RDW 12.8 % (11.5-15.5); WBC 6.9 k/uL (3.8-10.6)
[2021-06-20] MEDS: AMPICILLIN-SULBACTAM 3 GM in SODIUM CHLORIDE 0.9% 100 ML IVPB SCH ×3 (05:35→18:05)
[2021-06-20 07:41] LABS: Glucose,Whole Blood 125 mg/dL (75-99)
[2021-06-20] MEDS: GLIMEPIRIDE 2 MG TAB PO SCH (08:45)
[2021-06-20] MEDS: CHOLECALCIFEROL 25 MCG (1000 IU) TABLET PO SCH (08:45)
[2021-06-20] MEDS: ASPIRIN 81 MG PO SCH (08:45)
[2021-06-20] MEDS: metFORMIN 500 MG TAB PO SCH ×2 (08:45→21:09)
[2021-06-20] MEDS: LOSARTAN 50 MG TAB PO SCH (08:45)
[2021-06-20] MEDS: INSULIN ASPART (NovoLOG) 100 UNIT/ML VIAL SQ SCH ×4 (08:46→21:08)
[2021-06-20] MEDS: COLLAGENASE 250 UNIT/GM OINTMENT 30 GM TUBE TOPICAL SCH (08:46)
[2021-06-20] MEDS: VANCOMYCIN 1,500 MG in SODIUM CHLORIDE 0.9% 250 ML IVPB SCH ×2 (08:49→21:08)
[2021-06-20 11:03] LABS: African American GFR (CKD) 91.6 (60.0-200.0); BUN/Creat Ratio 11.51 Ratio (12.00-20.00); Calcium 8.3 mg/dL (8.7-10.3); Magnesium 1.8 mg/dL (1.5-2.4); Potassium 4.4 mmol/L (3.5-5.5)
[2021-06-20 12:02] LABS: Glucose,Whole Blood 144 mg/dL (75-99)
[2021-06-20 17:49] LABS: Glucose,Whole Blood 155 mg/dL (75-99)
[2021-06-20] MEDS: SODIUM CHLORIDE 0.9% 1,000 ML IV SCH (18:05)
--- NOTE | 2021-06-20 18:21 | PN ---
PROGRESS NOTE DATE OF SERVICE: 06/20/2021 REASON FOR FOLLOWUP: Left second toe gangrene. INTERVAL HISTORY: The patient is afebrile. The patient is feeling better. Breathing comfortably. The patient denies having any chest pain, shortness of breath or cough. No abdominal pain or any worsening pain to the left second toe amputation site. PHYSICAL EXAMINATION: Blood pressure 122/64, pulse of72, temp 97.9. He is 98% on room air. General description is an elderly male lying in bed in no distress. Respiratory system: Unlabored breathing, clear to auscultation anteriorly. Heart S1, S2. Regular rate and rhythm. Abdomen soft, no tenderness. Left foot is currently dressed. No obvious drainage on the dressing. LABS: Hemoglobin is 12.1, white count 6.9, creatinine is 1.0. Culture showing a Staph aureus and gram-negative. DIAGNOSTIC IMPRESSION AND PLAN: Patient with left second toe gangrene status post amputation. The patient is not bacteremic. Local culture with Staph aureus and gram-negative covered with Unasyn and vanco. Discharge antibiotic will depend upon clinical response and culture. Continue supportive care. MMODL / IJN: [id number] /
--- NOTE | 2021-06-20 19:20 | P.PN ---
Subjective This is a pleasant 71 years old male with past medical history of Diabetes Mellitus, Deep Vein Thrombosis not on anticoagulation, GERD,, Hyperlipidemia, Hypertension, benign prostatic hypertrophy Presents with sore on the left second toe he had a blister last week that has worsened. Patient states that he got a new pair of shoes and last week he started developing blister on the top of his third toe, patient has history of limitation of the fourth and fifth toe before. 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 No chest pain or dyspnea. No abdominal pain or vomiting or diarrhea. No urinary complaints. No headache or dizziness or weakness Vitas looks stable patient is afebrile. Labs reviewed including CBC, BMP and liver enzymes are unremarkable. Coronavirus not detected. Ultrasound of the left legs showing no evidence of deep venous thrombosis of his left inguinal lymph node enlarged incidentally found Left foot x-ray: forefoot soft tissue swelling on admission patient was started on IV vancomycin and Unasyn and ID team were consulted. Patient was started on normal saline at 75 mL/h. 06/19/2021 Patient today is a status post imbrication of the left second toe. Metformin and Amaryl heart in the morning while the patient was nothing by mouth. He is going to be resumed after start eating. He was sitting at bedside. Awake and oriented, as symptomatic feeling hungry pain control at the surgery site. Wound culture is growing gram-negative bacilli Repeat labs tomorrow morning 06/20/2021 Patient clinically stable. He is still on broad-spectrum antibiotics for his right foot infection. Wound culture growing presumptive MRSA and gram-negative bacilli. Culture has not been finalized yet. Patient remains on vancomycin and Unasyn and gentle hydration. ID team on the case Patient has diarrhea-like 5 times per day but C. diff came back negative Objective - Vital Signs Vital signs: Vital Signs Temp 97.8 F 06/20/21 04:50 Pulse 81 06/20/21 04:50 Resp 20 06/20/21 04:50 BP 132/77 06/20/21 04:50 Pulse Ox 98 06/20/21 04:50 Intake & Output 06/19/21 06/20/21 06/20/21 18:59 06:59 18:59 Intake Total 225 480 Output Total 205 600 Balance 20 -120 Weight 97.522 kg Intake: IV 225 Oral 480 Output: Urine 200 600 Estimated Blood Loss 5 Other: Voiding Method Urinal Urinal Urinal # Voids 1 - Exam GENERAL: The patient is alert and oriented x3, not in any acute distress. Well developed, well nourished. HEENT: Pupils are round and equally reacting to light. EOMI. No scleral icterus. No conjunctival pallor. Normocephalic, atraumatic. No pharyngeal erythema. No thyromegaly. CARDIOVASCULAR: S1 and S2 present. No murmurs, rubs, or gallops. PULMONARY: Chest is clear to auscultation, no wheezing or crackles. ABDOMEN: Soft, nontender, nondistended, normoactive bowel sounds. No palpable organomegaly. MUSCULOSKELETAL: No joint swelling or deformity. -EXTREMITIES: No cyanosis, clubbing, or pedal edema. Cellulitis of the left forefoot, facilitation of the, dressing in place NEUROLOGICAL: Gross neurological examination did not reveal any focal deficits. SKIN: No rashes. no petechiae. - Labs CBC & Chem 7: 06/20/21 04:29 06/20/21 04:29 Labs: Abnormal Lab Results - Last 24 Hours (Table) 06/19/21 06/19/21 06/20/21 Range/Units 17:51 20:06 04:29 RBC 4.23 L (4.30-5.90) m/uL Hgb 12.9 L (13.0-17.5) gm/dL Lymphocytes # 0.9 L (1.0-4.8) k/uL BUN/Creatinine Ratio (12.00-20.00) Ratio Glucose (70-110) mg/dL POC Glucose (mg/dL) 342 H 289 H (75-99) mg/dL Calcium (8.7-10.3) mg/dL 06/20/21 06/20/21 Range/Units 04:29 07:39 RBC (4.30-5.90) m/uL Hgb (13.0-17.5) gm/dL Lymphocytes # (1.0-4.8) k/uL BUN/Creatinine Ratio 11.51 L (12.00-20.00) Ratio Glucose 134 H (70-110) mg/dL POC Glucose (mg/dL) 125 H (75-99) mg/dL Calcium 8.3 L (8.7-10.3) mg/dL Microbiology - Last 24 Hours (Table) 06/19/21 13:20 Anaerobic Culture - Preliminary Toe - Left Second 06/19/21 13:20 Tissue Culture - Preliminary Toe - Left Second 06/18/21 17:40 Gram Stain - Preliminary Toe - Left Second Wound Culture - Preliminary Presumptive Staph aureus Gram Neg Bacilli 06/17/21 17:45 Blood Culture - Preliminary Blood No Growth after 48 hours 06/17/21 18:00 Blood Culture - Preliminary Blood No Growth after 48 hours 06/18/21 12:20 Gram Stain - Preliminary Foot - Left Wound Culture - Preliminary Gram Neg Bacilli Assessment and Plan Assessment: Left foot cellulitis with left second toe ruptured blister . Status post application of the left second toe Diabetes Mellitus Deep Vein Thrombosis not on anticoagulation GERD Hyperlipidemia Hypertension benign prostatic hypertrophy Plan: this is a pleasant 71 years old male who presents with cellulitis Continue with antibiotics, currently on IV vancomycin and Unasyn Infectious disease consult Continue gentle hydration Vascular surgery on the case Labs and medication were reviewed.. Continue same treatment. Continue with symptomatic treatment. Resume home medication. Monitor lytes and vitals. DVT and GI prophylaxis. Further recommendations depends on the clinical course of the patient DVT prophylaxis: Subcutaneous heparin GI Prophylaxis: Pepcid PT/OT: Pending Prognosis is guarded
[2021-06-20 20:47] LABS: Glucose,Whole Blood 171 mg/dL (75-99)
[2021-06-20] MEDS: TAMSULOSIN 0.4 MG CAP.ER.24H PO SCH (21:09)
[2021-06-21] MEDS: AMPICILLIN-SULBACTAM 3 GM in SODIUM CHLORIDE 0.9% 100 ML IVPB SCH ×4 (00:27→17:47)
[2021-06-21] MEDS: MORPHINE SULFATE 4 MG/ML SYRINGE IV PRN (02:44)
[2021-06-21] MEDS: SODIUM CHLORIDE 0.9% 1,000 ML IV SCH ×2 (05:37→17:47)
[2021-06-21 07:10] LABS: Glucose,Whole Blood 109 mg/dL (75-99)
[2021-06-21] MEDS: INSULIN ASPART (NovoLOG) 100 UNIT/ML VIAL SQ SCH ×4 (07:27→20:18)
[2021-06-21] MEDS: metFORMIN 500 MG TAB PO SCH ×2 (07:32→20:18)
[2021-06-21] MEDS: ASPIRIN 81 MG PO SCH (07:32)
[2021-06-21] MEDS: CHOLECALCIFEROL 25 MCG (1000 IU) TABLET PO SCH (07:32)
[2021-06-21] MEDS: LOSARTAN 50 MG TAB PO SCH (07:32)
[2021-06-21] MEDS: VANCOMYCIN 1,500 MG in SODIUM CHLORIDE 0.9% 250 ML IVPB SCH ×2 (07:32→20:18)
[2021-06-21] MEDS: GLIMEPIRIDE 2 MG TAB PO SCH (07:33)
[2021-06-21] MEDS: COLLAGENASE 250 UNIT/GM OINTMENT 30 GM TUBE TOPICAL SCH (09:17)
[2021-06-21 11:50] LABS: Glucose,Whole Blood 175 mg/dL (75-99)
--- NOTE | 2021-06-21 13:41 | P.PN ---
Progress Note - Text 71-year-old white male, patient came with gangrene of the left foot second toe patient with the ray amputation today we have changed her dressing this of the wound is clean and no active discharge was noted redness on the dorsal suspect the foot and the third toe is almost gone we have been using Santyl cream which should be continued patient is under care of infectious disease for IV antibiotic
[2021-06-21 14:50] VITALS: BMI 28.3
[2021-06-21 17:36] LABS: Glucose,Whole Blood 175 mg/dL (75-99)
[2021-06-21 20:13] LABS: Glucose,Whole Blood 211 mg/dL (75-99)
[2021-06-21] MEDS: TAMSULOSIN 0.4 MG CAP.ER.24H PO SCH (20:18)
--- NOTE | 2021-06-21 21:46 | P.PN ---
Subjective This is a pleasant 71 years old male with past medical history of Diabetes Mellitus, Deep Vein Thrombosis not on anticoagulation, GERD,, Hyperlipidemia, Hypertension, benign prostatic hypertrophy Presents with sore on the left second toe he had a blister last week that has worsened. Patient states that he got a new pair of shoes and last week he started developing blister on the top of his third toe, patient has history of limitation of the fourth and fifth toe before. 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 No chest pain or dyspnea. No abdominal pain or vomiting or diarrhea. No urinary complaints. No headache or dizziness or weakness Vitas looks stable patient is afebrile. Labs reviewed including CBC, BMP and liver enzymes are unremarkable. Coronavirus not detected. Ultrasound of the left legs showing no evidence of deep venous thrombosis of his left inguinal lymph node enlarged incidentally found Left foot x-ray: forefoot soft tissue swelling on admission patient was started on IV vancomycin and Unasyn and ID team were consulted. Patient was started on normal saline at 75 mL/h. 06/19/2021 Patient today is a status post imbrication of the left second toe. Metformin and Amaryl heart in the morning while the patient was nothing by mouth. He is going to be resumed after start eating. He was sitting at bedside. Awake and oriented, as symptomatic feeling hungry pain control at the surgery site. Wound culture is growing gram-negative bacilli Repeat labs tomorrow morning 06/20/2021 Patient clinically stable. He is still on broad-spectrum antibiotics for his right foot infection. Wound culture growing presumptive MRSA and gram-negative bacilli. Culture has not been finalized yet. Patient remains on vancomycin and Unasyn and gentle hydration. ID team on the case Patient has diarrhea-like 5 times per day but C. diff came back negative 06/21/2021 Hussain is doing well, his wound is kept open to heal by secondary intention as he has gangrene. Discussed with . Patient will need to follow up as an outpatient with the wound clinic for discharge. Patient pending final results of wound culture. One culture is finalized with MRSA and stenotrophomonas , however 2 more wound cultures are pending. Check creatinine in the morning Objective - Vital Signs Vital signs: Vital Signs Temp 97.2 F L 06/21/21 11:46 Pulse 75 06/21/21 11:46 Resp 16 06/21/21 11:46 BP 130/71 06/21/21 11:46 Pulse Ox 98 06/21/21 11:46 Intake & Output 06/20/21 06/21/21 06/21/21 18:59 06:59 18:59 Intake Total 400 Output Total 500 1800 Balance -500 -1400 Intake: Oral 400 Output: Urine 500 1800 Other: Voiding Method Urinal Urinal Urinal - Exam GENERAL: The patient is alert and oriented x3, not in any acute distress. Well developed, well nourished. HEENT: Pupils are round and equally reacting to light. EOMI. No scleral icterus. No conjunctival pallor. Normocephalic, atraumatic. No pharyngeal erythema. No thyromegaly. CARDIOVASCULAR: S1 and S2 present. No murmurs, rubs, or gallops. PULMONARY: Chest is clear to auscultation, no wheezing or crackles. ABDOMEN: Soft, nontender, nondistended, normoactive bowel sounds. No palpable organomegaly. MUSCULOSKELETAL: No joint swelling or deformity. -EXTREMITIES: No cyanosis, clubbing, or pedal edema. Cellulitis of the left forefoot, facilitation of the, dressing in place NEUROLOGICAL: Gross neurological examination did not reveal any focal deficits. SKIN: No rashes. no petechiae. - Labs CBC & Chem 7: 06/20/21 04:29 06/20/21 04:29 Labs: Abnormal Lab Results - Last 24 Hours (Table) 06/20/21 06/20/21 06/21/21 Range/Units 17:48 20:41 07:05 POC Glucose (mg/dL) 155 H 171 H 109 H (75-99) mg/dL 06/21/21 Range/Units 11:48 POC Glucose (mg/dL) 175 H (75-99) mg/dL Microbiology - Last 24 Hours (Table) 06/18/21 12:20 Gram Stain - Preliminary Foot - Left Wound Culture - Preliminary Gram Neg Bacilli Presumptive MRSA 06/19/21 13:20 Gram Stain - Preliminary Toe - Left Second Tissue Culture - Preliminary Gram Neg Bacilli 06/17/21 17:45 Blood Culture - Preliminary Blood No Growth after 72 hours 06/17/21 18:00 Blood Culture - Preliminary Blood No Growth after 72 hours 06/18/21 17:40 Gram Stain - Preliminary Toe - Left Second Wound Culture - Preliminary Presumptive MRSA Stenotrophomonas maltophilia 06/18/21 13:21 Anaerobic Culture - Preliminary Foot - Left 06/19/21 13:20 Anaerobic Culture - Preliminary Toe - Left Second Assessment and Plan Assessment: Left foot cellulitis with left second toe ruptured blister . Status post application of the left second toe Diabetes Mellitus Deep Vein Thrombosis not on anticoagulation GERD Hyperlipidemia Hypertension benign prostatic hypertrophy Plan: this is a pleasant 71 years old male who presents with cellulitis Continue with antibiotics, currently on IV vancomycin and Unasyn Infectious disease consult Continue gentle hydration Vascular surgery on the case Labs and medication were reviewed.. Continue same treatment. Continue with s ymptomatic treatment. Resume home medication. Monitor lytes and vitals. DVT and GI prophylaxis. Further recommendations depends on the clinical course of the patient DVT prophylaxis: Subcutaneous heparin GI Prophylaxis: Pepcid PT/OT: Pending Prognosis is guarded
--- NOTE | 2021-06-21 23:28 | PN ---
PROGRESS NOTE DATE OF SERVICE: 06/21/2021 REASON FOR FOLLOWUP: Left second toe gangrene. INTERVAL HISTORY: The patient is afebrile. The patient is breathing comfortably. The patient denies having any chest pain, shortness of breath or cough. No nausea, vomiting. No abdominal pain or any worsening pain to the left foot area. PHYSICAL EXAMINATION: Blood pressure is 130/71 with a pulse of 75, temperature 97.2. He is 98% on room air. General description is an elderly male lying in bed in no distress. Respiratory system: Unlabored breathing. Clear to auscultation anteriorly. Heart S1, S2. Regular rate and rhythm. Abdomen soft, no tenderness. Left foot currently still has significant swelling and redness at the site of amputation. No purulent drainage. LABS: No new labs have been obtained today. Wound culture finalized with Stenotrophomonas and MRSA. DIAGNOSTIC IMPRESSION AND PLAN: Patient with left second toe gangrene, status post amputation. Culture positive for MRSA and Stenotrophomonas. Unfortunately patient is ALLERGIC TO SULFA AND CIPRO. Will add Fortaz to cover for Stenotrophomonas. Continue the vancomycin and monitor his clinical course closely. MMODL / IJN: [id number] /
[2021-06-22] MEDS: VANCOMYCIN 1,500 MG in SODIUM CHLORIDE 0.9% 250 ML IVPB SCH ×3 (05:50→20:57)
[2021-06-22] MEDS: SODIUM CHLORIDE 0.9% 1,000 ML IV SCH (05:51)
[2021-06-22] MEDS ORDERED: VANCOMYCIN TROUGH DUE 1 EACH MISC MISCELLANE ONE (06:00)
[2021-06-22 06:29] LABS: African American GFR (CKD) >90 (>60 ml/min/1.73 sqM); Anion Gap 7 mmol/L; Blood Urea Nitrogen 11 mg/dL (9-20); Calcium 8.5 mg/dL (8.4-10.2); Carbon Dioxide 24 mmol/L (22-30); Chloride 106 mmol/L (98-107); Glucose 172 mg/dL (74-99); Non-African American GFR(CKD) 86 (>60 ml/min/1.73 sqM); Sodium 137 mmol/L (137-145)
[2021-06-22 07:22] LABS: Glucose,Whole Blood 153 mg/dL (75-99)
[2021-06-22] MEDS: metFORMIN 500 MG TAB PO SCH ×2 (08:14→21:06)
[2021-06-22] MEDS: INSULIN ASPART (NovoLOG) 100 UNIT/ML VIAL SQ SCH ×4 (08:15→21:07)
[2021-06-22] MEDS: GLIMEPIRIDE 2 MG TAB PO SCH (08:15)
[2021-06-22] MEDS: LOSARTAN 50 MG TAB PO SCH (08:15)
[2021-06-22] MEDS: CHOLECALCIFEROL 25 MCG (1000 IU) TABLET PO SCH (08:15)
[2021-06-22] MEDS: COLLAGENASE 250 UNIT/GM OINTMENT 30 GM TUBE TOPICAL SCH (08:16)
[2021-06-22] MEDS: ASPIRIN 81 MG PO SCH (08:16)
[2021-06-22 12:34] LABS: Glucose,Whole Blood 103 mg/dL (75-99)
[2021-06-22 14:05] VITALS: PULSE 75
[2021-06-22 17:35] LABS: Glucose,Whole Blood 130 mg/dL (75-99)
[2021-06-22 19:51] LABS: Glucose,Whole Blood 168 mg/dL (75-99)
--- NOTE | 2021-06-22 20:24 | P.PN ---
Subjective This is a pleasant 71 years old male with past medical history of Diabetes Mellitus, Deep Vein Thrombosis not on anticoagulation, GERD,, Hyperlipidemia, Hypertension, benign prostatic hypertrophy Presents with sore on the left second toe he had a blister last week that has worsened. Patient states that he got a new pair of shoes and last week he started developing blister on the top of his third toe, patient has history of limitation of the fourth and fifth toe before. Gradually started getting worse and he went yesterday to see his doctor/[employer] Elaina at the [place] [facility] who referred him to the emergency room Patient denies any specific symptoms. No chest pain or dyspnea. No abdominal pain or vomiting or diarrhea. No urinary complaints. No headache or dizziness or weakness Vitas looks stable patient is afebrile. Labs reviewed including CBC, BMP and liver enzymes are unremarkable. Coronavirus not detected. Ultrasound of the left legs showing no evidence of deep venous thrombosis of his left inguinal lymph node enlarged incidentally found Left foot x-ray: forefoot soft tissue swelling on admission patient was started on IV vancomycin and Unasyn and ID team were consulted. Patient was started on normal saline at 75 mL/h. 06/19/2021 Patient today is a status post imbrication of the left second toe. Metformin and Amaryl heart in the morning while the patient was nothing by mouth. He is going to be resumed after start eating. He was sitting at bedside. Awake and oriented, as symptomatic feeling hungry pain control at the surgery site. Wound culture is growing gram-negative bacilli Repeat labs tomorrow morning 06/20/2021 Patient clinically stable. He is still on broad-spectrum antibiotics for his right foot infection. Wound culture growing presumptive MRSA and gram-negative bacilli. Culture has not been finalized yet. Patient remains on vancomycin and Unasyn and gentle hydration. ID team on the case Patient has diarrhea-like 5 times per day but C. diff came back negative 06/21/2021 Hussain is doing well, his wound is kept open to heal by secondary intention as he has gangrene. Discussed with . Patient will need to follow up as an outpatient with the wound clinic for discharge. Patient pending final results of wound culture. One culture is finalized with MRSA and stenotrophomonas , however 2 more wound cultures are pending. Check creatinine in the morning 06/22/2021 Patient clinically stable pending final results of his wound culture. Patient will need to follow-up with wound center upon discharge however patient might be going to subacute rehab Per ID team patient will need PICC line as his wound going multiple microorganisms including MRSA, stenotrophomonas, acinetobacter and alcaligen . Also the patient lives in his truck which is been unpractical for antibiotic therapy therefore patient will need subacute treatment Possible discharge in 24-48 hours Objective - Vital Signs Vital signs: Vital Signs Temp 98.1 F 06/22/21 05:00 Pulse 73 06/22/21 08:17 Resp 18 06/22/21 05:00 BP 120/73 06/22/21 08:17 Pulse Ox 96 06/22/21 05:00 Intake & Output 06/21/21 06/22/21 06/22/21 18:59 06:59 18:59 Intake Total 1000 Output Total 1100 Balance 1000 -1100 Weight 97.522 kg Intake: Intake, IV Titration 1000 Amount Sodium Chloride 0.9% 1, 750 000 ml @ 75 mls/hr IV . [id number] [facility] Rx#:[id number] Vancomycin 1,500 mg In 250 Sodium Chloride 0.9% 250 ml @ 125 mls/hr IVPB Q12H [facility] Rx#:[id number] Output: Urine 1100 Other: Voiding Method Urinal Urinal Urinal - Exam GENERAL: The patient is alert and oriented x3, not in any acute distress. Well developed, well nourished. HEENT: Pupils are round and equally reacting to light. EOMI. No scleral icterus. No conjunctival pallor. Normocephalic, atraumatic. No pharyngeal erythema. No thyromegaly. CARDIOVASCULAR: S1 and S2 present. No murmurs, rubs, or gallops. PULMONARY: Chest is clear to auscultation, no wheezing or crackles. ABDOMEN: Soft, nontender, nondistended, normoactive bowel sounds. No palpable organomegaly. MUSCULOSKELETAL: No joint swelling or deformity. -EXTREMITIES: No cyanosis, clubbing, or pedal edema. Cellulitis of the left forefoot, facilitation of the, dressing in place NEUROLOGICAL: Gross neurological examination did not reveal any focal deficits. SKIN: No rashes. no petechiae. - Labs CBC & Chem 7: 06/20/21 04:29 06/22/21 05:42 Labs: Abnormal Lab Results - Last 24 Hours (Table) 06/21/21 06/21/21 06/21/21 Range/Units 11:48 17:31 20:12 Glucose (74-99) mg/dL POC Glucose (mg/dL) 175 H 175 H 211 H (75-99) mg/dL 06/22/21 06/22/21 Range/Units 05:42 07:20 Glucose 172 H (74-99) mg/dL POC Glucose (mg/dL) 153 H (75-99) mg/dL Microbiology - Last 24 Hours (Table) 06/17/21 17:45 Blood Culture - Preliminary Blood No Growth after 96 hours 06/17/21 18:00 Blood Culture - Preliminary Blood No Growth after 96 hours 06/18/21 17:40 Gram Stain - Final Toe - Left Second Wound Culture - Final Methicillin resist S. aureus Stenotrophomonas maltophilia 06/18/21 12:20 Gram Stain - Preliminary Foot - Left Wound Culture - Preliminary Gram Neg Bacilli Presumptive MRSA 06/19/21 13:20 Gram Stain - Preliminary Toe - Left Second Tissue Culture - Preliminary Gram Neg Bacilli Assessment and Plan Assessment: Left foot cellulitis with left second toe ruptured blister . Status post application of the left second toe Diabetes Mellitus Deep Vein Thrombosis not on anticoagulation GERD Hyperlipidemia Hypertension benign prostatic hypertrophy Plan: this is a pleasant 71 years old male who presents with cellulitis Continue with antibiotics, currently on IV vancomycin and Unasyn Infectious disease consult Continue gentle hydration Vascular surgery on the case Labs and medication were reviewed.. Continue same treatment. Continue with symptomatic treatment. Resume home medication. Monitor lytes and vitals. DVT and GI prophylaxis. Further recommendations depends on the clinical course of the patient DVT prophylaxis: Subcutaneous heparin GI Prophylaxis: Pepcid PT/OT: Pending Prognosis is guarded
[2021-06-22] MEDS: TAMSULOSIN 0.4 MG CAP.ER.24H PO SCH (21:07)
--- NOTE | 2021-06-22 22:53 | PN ---
PROGRESS NOTE DATE OF SERVICE: 06/22/2021 REASON FOR FOLLOWUP: Left second toe gangrene, diabetic foot infection. INTERVAL HISTORY: The patient is afebrile. The patient is breathing comfortably. The patient denies having any chest pain or shortness of breath or cough. No nausea, vomiting. No abdominal pain or any worsening pain to the left foot area. PHYSICAL EXAMINATION: Blood pressure 126/68 with a pulse of 75, temperature 97.4. He is 95% on room air. General description is an elderly male lying in bed in no distress. Respiratory system: Unlabored breathing. Clear to auscultation anteriorly. Heart S1, S2. Regular rate and rhythm. Abdomen soft, no tenderness. Left foot is currently dressed. No obvious drainage on the dressing. LABS: Cultures showing Stenotrophomonas and MRSA. DIAGNOSTIC IMPRESSION AND PLAN: Patient with left second toe gangrene, status post amputation. Culture with Stenotrophomonas and MRSA. Patient does have AND CIPRO ALLERGY. without any good oral option for the Stenotrophomonas. Patient did have significant cellulitis at the site of amputation. May benefit from ceftazidime and vancomycin for 2 weeks in the outpatient setting and may need placement for it. Continue with supportive care. MMODL / IJN: [id number] /
[2021-06-23] MEDS: SODIUM CHLORIDE 0.9% 1,000 ML IV SCH ×2 (01:33→12:01)
[2021-06-23] MEDS: VANCOMYCIN 1,500 MG in SODIUM CHLORIDE 0.9% 250 ML IVPB SCH (06:06)
[2021-06-23 07:26] LABS: Glucose,Whole Blood 100 mg/dL (75-99)
[2021-06-23] MEDS: INSULIN ASPART (NovoLOG) 100 UNIT/ML VIAL SQ SCH ×2 (07:37→12:23)
[2021-06-23] MEDS: LOSARTAN 50 MG TAB PO SCH (08:00)
[2021-06-23] MEDS: GLIMEPIRIDE 2 MG TAB PO SCH (08:00)
[2021-06-23] MEDS: CHOLECALCIFEROL 25 MCG (1000 IU) TABLET PO SCH (08:00)
[2021-06-23] MEDS: metFORMIN 500 MG TAB PO SCH (08:00)
[2021-06-23] MEDS: ASPIRIN 81 MG PO SCH (08:00)
[2021-06-23] MEDS: COLLAGENASE 250 UNIT/GM OINTMENT 30 GM TUBE TOPICAL SCH (08:01)
--- NOTE | 2021-06-23 08:48 | P.PN ---
Progress Note - Text 71-year-old gentleman who had a left foot wet gangrene and went for left foot second toe ray amputation. 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 Patient be going to senior care for IV antibiotic patient will follow up in the wound clinic Hattie daily
[2021-06-23 12:04] VITALS: BP 129/63; RESP 16; TEMP 97.8
[2021-06-23 12:07] LABS: Glucose,Whole Blood 224 mg/dL (75-99)
[2021-06-23] MEDS ORDERED: LIDOCAINE 1% INJ 10MG/ML (20 ML MDV) SQ ONE (14:12)
--- NOTE | 2021-06-23 14:36 | IR ---
EXAMINATION TYPE: IR cvc insert >=5 years DATE OF EXAM: 06/23/2021 COMPARISON: NONE CLINICAL HISTORY: Infection and gangrene, Needs long-term intravenous access for antibiotics. PROCEDURE: Hand hygiene obtained with soap and water and alcohol-based hand rub. After informed consent, the skin overlying the left basilic vein was localized with ultrasound and no mario to be compressible and patent. An ultrasound image was obtained and submitted on the patient's c alan. The overlying skin was prepped and draped and Lidocaine was used for local anesthesia. A skin megan was made with a scalpel. Access was gained to the vein under ultrasound guidance with a 21 gau ge needle and a 0.018 inch wire was advanced. Access site was dilated with Peel-Away sheath and cath eter tailored to the appropriate length and advanced such that the distal tip is at the cavoatrial ju nction. Spot image was obtained verifying placement. Catheter was fixed to the skin and a sterile d ressing was placed following hemostasis. Catheter was aspirated and flushed with saline. Patient wa s discharged in stable condition without complication.Maximal barrier technique is utilized. Ultraso und image is documented on the chart. Ultrasound used with sterile technique. Fluoro time and fluoroscopic images submitted to document procedure: 0.2 minutes fluoroscopy time, 24 intraoperative C-arm images document the procedure IMPRESSION: STATUS POST ULTRASOUND AND FLUOROSCOPIC GUIDED PICC LINE PLACEMENT, READY FOR USE. THIS PROCEDURE WAS PERFORMED BY THE UNDERSIGNED.
--- NOTE | 2021-06-23 14:45 | PN ---
PROGRESS NOTE DATE OF SERVICE: 06/23/2021 REASON FOR FOLLOWUP: Left second toe gangrene, status post amputation. INTERVAL HISTORY: The patient is afebrile. The patient is breathing comfortably. The patient denies having any chest pain or shortness of breath or cough. No abdominal pain or diarrhea. PHYSICAL EXAMINATION: Blood pressure 129/63 with a pulse of 75, temperature 97.8. He is 98% on room air. General description is an elderly male lying in bed in no distress. Respiratory system: Unlabored breathing, clear to auscultation anteriorly. Heart S1, S2. Regular rate and rhythm. Abdomen soft, no tenderness. Left foot is currently dressed. Per note of the surgeon who changed the dressing this morning, overall wound is clean. LABS: negative. No CBC was done today. DIAGNOSTIC IMPRESSION AND PLAN: Patient with left second toe gangrene, status post amputation. Culture positive for MRSA and Stenotrophomonas. Patient has 10 days to 2 weeks and close outpatient followup. MMODL / IJN: [id number] /
--- NOTE | 2021-06-23 14:49 | P.DS ---
Providers Date of admission: 06/19/21 08:08 Attending physician: Riley Gr Consults: 06/17/21 20:05 Consult Physician Routine Consulting Provider: Alexa Peters Consult Reason/Comments: cellulitis L foot Do you want consulting provider notified?: Yes 06/18/21 08:37 Consult Physician Urgent Consulting Provider: Sedrick Ibanez Consult Reason/Comments: toe cellulitis , diabetic Do you want consulting provider notified?: Yes Primary care physician: [facility] Hospital Course: Diagnoses: Left foot cellulitis with left second toe with wet gangrene. Status post amputation of the left second toe Diabetes Mellitus Deep Vein Thrombosis not on anticoagulation GERD Hyperlipidemia Hypertension benign prostatic hypertrophy Hospital course: This is a pleasant 71 years old male with past medical history of Diabetes Mellitus, Deep Vein Thrombosis not on anticoagulation, GERD,, Hyperlipidemia, Hypertension, benign prostatic hypertrophy Presents with sore on the left second toe he had a blister last week that has worsened. Patient states that he got a new pair of shoes and last week he started developing blister on the top of his second and third toes, patient has history of amputation of the fourth and fifth toe before. Gradually started getting worse and he went yesterday to see his doctor/[employer] Elaina at the [facility] who referred him to the emergency room. Patient has been evaluated by vascular surgeon Dr. Black and he did amputation of his left second toe. Patient tolerated the procedure well and he needs to follow up with wound consult orthopedic clinic in [address] Black. While in the hospital patient was treated with IV Unasyn and IV vancomycin with normal saline at 75 mL/h. Patient remains clinically stable. Culture is growing MRSA, stenotrophomonas, acinetobacter and alcaligen Patient lives in a truck therefore he will need placement with IV antibiotics for his significant foot infection. Dr. Peters recommended PICC line and IV antibiotics for 2 weeks (please refer for discharge instructions for antibiotics placed per Dr. Peters) youth support worker on the case. Other than that the patient is medically stable. He didn't the day of discharge he denies chest pain, dyspnea. No change in urine or bowel habits. No diarrhea. No fever. Patient was cleared for discharge by both ID and vascular surgery team Problems and management plan were discussed with the patient and he verbalized understanding and acceptance Patient was found stable and can be discharged to [facility] in guarded prognosis however he needs follow-up as an outpatient. [facility] and patient agrees patient also was instructed to follow up with Dr. Black in the wound clinic in 1 week. And instructed to follow up with ID Dr. Peters in one week and he agrees Upon discharge patient continued with metformin and Amaryl while his diabetes medications were held Alogliptin 25 mg po daily and Empagliflozin (jaridance) 25 mg po daily ( both held). Patient to continue with insulin sliding scale at long-term Physical exam Gen: patient is a AAOx3, no distress CVS: S1-S2, RRR, no murmur Lungs: B/L CTA, no wheezing Abdomen: soft, no distention, no tenderness, positive bowel sounds. Extremity: no leg edema or induration. Cellulitis of the left forefoot is improving, wound is healing by secondary intention with granulation tissue. Dressing is in a Place Time spent more than 35 minutes Assessment: With treatment of infection his sugar become better controlled, he was kept on home dose of metformin 1000 mg twice a day. However other to medication to help upon admission and they can be discontinued upon discharge including alogliptin and alogliptin and jariance . Patient also on Amaryl 2 mg daily Plan - Discharge Summary Discharge Rx Participant: No New Discharge Prescriptions: New INSULIN ASPART (NovoLOG) [NovoLOG (formulary)] 0 unit SQ ACHS ml Continue metFORMIN HCL [Glucophage] 1,000 mg PO BID Tamsulosin HCl [Flomax] 0.4 mg PO HS Aspirin [Adult Low Dose Aspirin EC] 81 mg PO DAILY Rosuvastatin Calcium [Crestor] 40 mg PO DAILY Losartan [Cozaar] 50 mg PO DAILY Glimepiride [Amaryl] 2 mg PO DAILY Cholecalciferol [Vitamin D3 (25 Mcg = 1000 Iu)] 50 mcg PO DAILY Discontinued Alogliptin Benzoate [Alogliptin] 25 mg PO DAILY Empagliflozin [Jardiance] 25 mg PO DAILY Discharge Medication List Tamsulosin HCl [Flomax] 0.4 mg PO HS 12/23/16 [History] metFORMIN HCL [Glucophage] 1,000 mg PO BID 12/23/16 [History] Aspirin [Adult Low Dose Aspirin EC] 81 mg PO DAILY 11/01/17 [History] Cholecalciferol [Vitamin D3 (25 Mcg = 1000 Iu)] 50 mcg PO DAILY 06/17/21 [History] Glimepiride [Amaryl] 2 mg PO DAILY 06/17/21 [History] Losartan [Cozaar] 50 mg PO DAILY 06/17/21 [History] Rosuvastatin Calcium [Crestor] 40 mg PO DAILY 06/17/21 [History] INSULIN ASPART (NovoLOG) [NovoLOG (formulary)] 0 unit SQ ACHS ml 06/23/21 [Rx] Follow up Appointment(s)/Referral(s): Serdick Ibanez MD [STAFF PHYSICIAN] - 1 Week Alexa Peters MD [STAFF PHYSICIAN] - 1 Week [facility] [Primary Care Provider] - 1-2 days Activity/Diet/Wound Care/Special Instructions: Low carbohydrate consistent carbohydrate diet 1800 kcal per day Activity as tolerated We recommend to follow up with the wound center in 1 week with Discharge Disposition: TRANSFER TO SNF/ECF
== END 2021-06-23 15:26 | DRG 240 ==
LOC: EC 16:09 → 5NMEDONC 20:07 → OBSVTOIN 06-19 08:08
PROVIDERS: ADMIT Internal Medicine; ATTEND Internal Medicine
PROC: 0Y6N0ZB Detachment at Left Foot, Partial 2nd Ray, Open Approach (ICD-10-PCS; principal; 2021-06-19 13:35)
PROC: 02HV33Z Insertion of Infusion Device into Superior Vena Cava, Percutaneous Approach (ICD-10-PCS; 2021-06-23)
DX: E11.52 Type 2 diabetes mellitus with diabetic peripheral angiopathy with gangrene (principal); I96 Gangrene, not elsewhere classified; L03.116 Cellulitis of left lower limb; E11.628 Type 2 diabetes mellitus with other skin complications; B95.62 Methicillin resistant Staphylococcus aureus infection as the cause of diseases classified elsewhere; E78.5 Hyperlipidemia, unspecified; Z89.412 Acquired absence of left great toe; Z20.822 Contact with and (suspected) exposure to COVID-19; L03.032 Cellulitis of left toe; S90.425A Blister (nonthermal), left lesser toe(s), initial encounter; K21.9 Gastro-esophageal reflux disease without esophagitis; I10 Essential (primary) hypertension; N40.0 Benign prostatic hyperplasia without lower urinary tract symptoms; H35.30 Unspecified macular degeneration; M19.90 Unspecified osteoarthritis, unspecified site; R19.7 Diarrhea, unspecified; F17.200 Nicotine dependence, unspecified, uncomplicated; Z71.6 Tobacco abuse counseling; Z79.82 Long term (current) use of aspirin; Z79.84 Long term (current) use of oral hypoglycemic drugs; Z79.899 Other long term (current) drug therapy; Z86.718 Personal history of other venous thrombosis and embolism; Z86.010 Personal history of colon polyps; Z98.42 Cataract extraction status, left eye; Z98.41 Cataract extraction status, right eye; Z90.89 Acquired absence of other organs; Z87.39 Personal history of other diseases of the musculoskeletal system and connective tissue; Z95.1 Presence of aortocoronary bypass graft; Z59.02 Unsheltered homelessness; Z98.890 Other specified postprocedural states; Z88.2 Allergy status to sulfonamides; Z88.1 Allergy status to other antibiotic agents; Z88.8 Allergy status to other drugs, medicaments and biological substances
CPT/HCPCS: 36415; 36573; 80048; 80053; 80202; 82565; 83605; 83735; 85025; 87040; 87070; 87075; 87077; 87186; 87205; 87324; 87635; 96361; 96365; 96375; 99285

== ENCOUNTER 2024-10-03 09:39 | Inpatient (IN) | payer OTHER, MEDICARE ==
[2024-10-03] MEDS ORDERED: VANCOMYCIN IV PER PHARMACY 1 EACH MISC MISCELLANE PRN (10:21)
[2024-10-03] MEDS ORDERED: RX INFO: IV CONTRAST WAS GIVEN 1 EACH MISC MISCELLANE PRN (10:23)
--- NOTE | 2024-10-03 10:27 | ED ---
General Adult HPI - General Chief complaint: Extremity Problem,Nontraumatic Stated complaint: Foot infection Time Seen by Provider: 10/03/24 09:44 Source: patient, RN notes reviewed Mode of arrival: EMS Limitations: no limitations - History of Present Illness Initial comments: Patient is a 74-year-old male present to the emergency department with concerns for foot infection. Patient states this has been bugging him for several days now. Patient does have history of previous first and second left toes amputated. Patient states pain is becoming severe and worse with ambulation. Patient is a known diabetic. Patient denies fevers. No other area of concerns. Patient denies any recent injury. - Related Data Home Medications Medication Instructions Recorded Confirmed Tamsulosin HCl [Flomax] 0.8 mg PO HS 12/23/16 10/03/24 metFORMIN HCL [Glucophage] 1,000 mg PO BID 12/23/16 10/03/24 Aspirin [Adult Low Dose Aspirin EC] 81 mg PO DAILY 11/01/17 10/03/24 Cholecalciferol [Vitamin D3 (25 50 mcg PO DAILY 06/17/21 10/03/24 Mcg = 1000 Iu)] Losartan [Cozaar] 50 mg PO DAILY 06/17/21 10/03/24 Rosuvastatin Calcium [Crestor] 40 mg PO DAILY 06/17/21 10/03/24 Empagliflozin [Jardiance] 25 mg PO DAILY 10/03/24 10/03/24 Podofilox 1 applic TOPICAL DAILY 10/03/24 10/03/24 SITagliptin [Sitagliptin] 100 mg PO DAILY 10/03/24 10/03/24 glipiZIDE [Glucotrol] 10 mg PO AC-BID 10/03/24 10/03/24 Allergies Allergy/AdvReac Type Severity Reaction Status Date / Time sulfamethoxazole Allergy Severe joint Verified 10/03/24 10:33 [From Bactrim] pain, aches ciprofloxacin [From Cipro] Allergy joint Verified 10/03/24 10:33 pain, aches lisinopril Allergy joint Verified 10/03/24 10:33 pain, cough trimethoprim [From Bactrim] Allergy joint Verified 10/03/24 10:33 pain, aches NABIL Inhibitors AdvReac Cough Verified 10/03/24 10:33 Review of Systems ROS Statement: Those systems with pertinent positive or pertinent negative responses have been documented in the HPI. ROS Other: All systems not noted in ROS Statement are negative. Constitutional: Denies: fever Eyes: Denies: eye pain Cardiovascular: Denies: chest pain Gastrointestinal: Denies: abdominal pain Skin: Reports: as per HPI Past Medical History Past Medical History: Diabetes Mellitus, Deep Vein Thrombosis (DVT), Eye Disorder, GERD/Reflux, Hyperlipidemia, Hypertension, Prostate Disorder Additional Past Medical History / Comment(s): L foot osteomylitis, DJD, DVT R leg, R eye macular degeneration, BPH, benign colon polyps. History of Any Multi-Drug Resistant Organisms: MRSA Date of last positivie culture/infection: 06/19/21 MDRO Source:: MRSA TOE Past Surgical History: Orthopedic Surgery, Tonsillectomy Additional Past Surgical History / Comment(s): L great toe amputation, L 2nd toe "bones disconnected", colonoscopy with polypectomy, bilateral cataract removals Past Anesthesia/Blood Transfusion Reactions: No Reported Reaction Past Psychological History: No Psychological Hx Reported Smoking Status: Current every day smoker Past Alcohol Use History: None Reported Past Drug Use History: None Reported - Past Family History Father History Unknown: Yes Family Medical History: No Reported History Mother Family Medical History: No Reported History Additional Family Medical History / Comment(s): Mother was healthy General Exam Limitations: no limitations General appearance: alert, in no apparent distress Head exam: Present: normocephalic Eye exam: Present: normal appearance Respiratory exam: Present: normal lung sounds bilaterally Cardiovascular Exam: Present: regular rate, normal rhythm GI/Abdominal exam: Present: soft. Absent: tenderness Extremities exam: Present: other (Left fourth toe with gangrene and foul odor. There is minimal changes to the third and fifth toe. Difficulty palpating pedal pulses throughout. Cap refill 2 to 3 seconds except for the gangrenous toe.) Neurological exam: Present: alert Psychiatric exam: Present: normal affect, normal mood Skin exam: Present: other (Left fourth digit gangrenous toe) Course Vital Signs 10/03/24 10/03/24 10/03/24 09:43 10:38 11:37 Temperature 99.9 F H 102.7 F H 101.2 F H Pulse Rate 114 H 110 H 101 H Respiratory 18 18 18 Rate Blood Pressure 146/71 127/75 110/61 O2 Sat by Pulse 95 96 94 L Oximetry Medical Decision Making - Medical Decision Making Was pt. sent in by a medical professional or institution (, PA, BEREAVEMENT PROGRAM COORDINATOR, urgent care, hospital, or senior living...) When possible be specific @ -Patient was sent in by the [facility] Did you speak to anyone other than the patient for history (EMS, parent, family, police, friend...)? What history was obtained from this source @ -No Did you review nursing and triage notes (agree or disagree)? Why? @ -I reviewed and agree with nursing and triage notes Were old charts reviewed (outside hosp., previous admission, EMS record, old EKG, old radiological studies, urgent care reports/EKG's, senior living records)? Report findings @ -Chart from [facility] was reviewed Differential Diagnosis (chest pain, altered mental status, abdominal pain women, abdominal pain men, vaginal bleeding, weakness, fever, dyspnea, syncope, headache, dizziness, GI bleed, back pain, seizure, CVA, palpatations, mental health, musculoskeletal)? @ -Differential Fever: Pneumonia, viral URI, endocarditis, myocarditis, pericarditis, otitis, sinusitis, peritonsillar Abscess, retropharyngeal Abscess, epiglottitis, per itonitis, appendicitis, Janeth cystitis, diverticulitis, hepatitis, colitis, UTI, PID, TOA, pyelonephritis, prostatitis, epididymitis, meningitis, encephalitis, pulmonary embolism, CVA, thyroid storm, pancreatitis, adrenal crisis, cavernous sinus thrombosis, this is not meant to be an all-inclusive list. EKG interpreted by me (3pts min.). @ -As above X-rays interpreted by me (1pt min.). @ -X-ray left foot shows previous amputations. Mild edema however no definitive osteomyelitis CT interpreted by me (1pt min.). @ -CT angiogram lower extremities shows severe atherosclerotic disease proximal superficial femoral arteries bilaterally. Also poor visualization distally right tibial artery and left posterior and anterior tibial artery U/S interpreted by me (1pt. min.). @ -Ultrasound left leg without evidence of DVT What testing was considered but not performed or refused? (CT, X-rays, U/S, labs)? Why? @ -None What meds were considered but not given or refused? Why? @ -None Did you discuss the management of the patient with other professionals (professionals i.e. , PA, BEREAVEMENT PROGRAM COORDINATOR, lab, RT, psych nurse, social work supervisor, tooth grinder, teacher, investment officer, keycase assembler)? Give summary @ -Case discussed with practitioner Fer who will admit [facility] covering for Dr. Valiente me Was smoking cessation discussed for >3mins.? @ -No Was critical care preformed (if so, how long)? @ -33 minutes critical care time Were there social determinants of health that impacted care today? How? (Homelessness, low income, unemployed, alcoholism, drug addiction, transportation, low edu. Level, literacy, decrease access to med. care, care home, rehab)? @ -No Was there de-escalation of care discussed even if they declined (Discuss DNR or withdrawal of care, Hospice)? DNR status @ -No What co-morbidities impacted this encounter? (DM, HTN, Smoking, COPD, CAD, Cancer, CVA, ARF, Chemo, Hep., AIDS, mental health diagnosis, sleep apnea, morbid obesity)? @ -None Was patient admitted / discharged? Hospital course, mention meds given and route, prescriptions, significant lab abnormalities, going to OR and other pertinent info. @ -Patient presents with gangrenous left fourth toe. Patient does meet sepsis criteria. Blood cultures, lactic acid and IV antibiotics have all been ordered on original orders. Patient updated on results and plan. Admission orders written. Patient will need vascular consult. Undiagnosed new problem with uncertain prognosis? @ -No Drug Therapy requiring intensive monitoring for toxicity (Heparin, Nitro, Insulin, Cardizem)? @ -No Were any procedures done? @ -No Diagnosis/symptom? @ -Gangrenous left fourth toe Acute, or Chronic, or Acute on Chronic? @ -Acute Uncomplicated (without systemic symptoms) or Complicated (systemic symptoms)? @ -Default Side effects of treatment? @ -No Exacerbation, Progression, or Severe Exacerbation? @ -No Poses a threat to life or bodily function? How? (Chest pain, [place], [place], pneumonia, PE, COPD, DKA, ARF, appy, cholecystitis, CVA, Diverticulitis, Homicidal, Suicidal, threat to staff... and all critical care pts) @ -Likely need of amputation - Lab Data Result diagrams: 10/03/24 10:26 10/03/24 10:26 Lab Results 10/03/24 10/03/2410/03/25 Range/Units 10:26 10:26 10:26 WBC 16.3 H (3.8-10.6) k/uL RBC 3.98 L (4.30-5.90) m/uL Hgb 11.6 L (13.0-17.5) gm/dL Hct 35.0 L (39.0-53.0) % MCV 88.1 (80.0-100.0) fL MCH 29.1 (25.0-35.0) pg MCHC 33.0 (31.0-37.0) g/dL RDW 12.6 (11.5-15.5) % Plt Count 390 (150-450) k/uL MPV 7.8 Neutrophils % 94 % Lymphocytes % 2 % Monocytes % 2 % Eosinophils % 1 % Basophils % 0 % Neutrophils # 15.3 H (1.3-7.7) k/uL Lymphocytes # 0.4 L (1.0-4.8) k/uL Monocytes # 0.4 (0-1.0) k/uL Eosinophils # 0.1 (0-0.7) k/uL Basophils # 0.0 (0-0.2) k/uL PT 11.3 (10.0-12.5) sec INR 1.0 (<1.2) APTT 25.4 (22.0-30.0) sec Sodium 132 L (137-145) mmol/L Potassium 4.8 (3.5-5.1) mmol/L Chloride 100 (98-107) mmol/L Carbon Dioxide 22 (22-30) mmol/L Anion Gap 10 mmol/L BUN 19 (9-20) mg/dL Creatinine 1.05 (0.66-1.25) mg/dL Est GFR (CKD-EPI)AfAm 80 (>60 ml/min/1.73 sqM) Est GFR (CKD-EPI)NonAf 70 (>60 ml/min/1.73 sqM) Glucose 268 H (74-99) mg/dL Plasma Lactic Acid Espinoza (0.7-2.0) mmol/L Calcium 8.6 (8.4-10.2) mg/dL Total Bilirubin 0.5 (0.2-1.3) mg/dL AST 15 L (17-59) U/L ALT 11 (4-49) U/L Alkaline Phosphatase 90 (38-126) U/L Total Protein 6.6 (6.3-8.2) g/dL Albumin 3.3 L (3.5-5.0) g/dL 10/03/24 Range/Units 10:26 WBC (3.8-10.6) k/uL RBC (4.30-5.90) m/uL Hgb (13.0-17.5) gm/dL Hct (39.0-53.0) % MCV (80.0-100.0) fL MCH (25.0-35.0) pg MCHC (31.0-37.0) g/dL RDW (11.5-15.5) % Plt Count (150-450) k/uL MPV Neutrophils % % Lymphocytes % % Monocytes % % Eosinophils % % Basophils % % Neutrophils # (1.3-7.7) k/uL Lymphocytes # (1.0-4.8) k/uL Monocytes # (0-1.0) k/uL Eosinophils # (0-0.7) k/uL Basophils # (0-0.2) k/uL PT (10.0-12.5) sec INR (<1.2) APTT (22.0-30.0) sec Sodium (137-145) mmol/L Potassium (3.5-5.1) mmol/L Chloride (98-107) mmol/L Carbon Dioxide (22-30) mmol/L Anion Gap mmol/L BUN (9-20) mg/dL Creatinine (0.66-1.25) mg/dL Est GFR (CKD-EPI)AfAm (>60 ml/min/1.73 sqM) Est GFR (CKD-EPI)NonAf (>60 ml/min/1.73 sqM) Glucose (74-99) mg/dL Plasma Lactic Acid Espinoza 1.7 (0.7-2.0) mmol/L Calcium (8.4-10.2) mg/dL Total Bilirubin (0.2-1.3) mg/dL AST (17-59) U/L ALT (4-49) U/L Alkaline Phosphatase (38-126) U/L Total Protein (6.3-8.2) g/dL Albumin (3.5-5.0) g/dL Disposition Clinical Impression: Gangrene of toe of left foot Disposition: ADMITTED IP TO THIS HOSP Condition: Serious Is patient prescribed a controlled substance at d/c from ED?: No Time of Disposition: 11:31
[2024-10-03 10:39] LABS: Basophils % (A) 0 %; Eosinophils # (A) 0.1 k/uL (0-0.7); Eosinophils % (A) 1 %; HGB 11.6 gm/dL (13.0-17.5); Lymphocytes # (A) 0.4 k/uL (1.0-4.8); Lymphocytes % (A) 2 %; MCH 29.1 pg (25.0-35.0); MCV 88.1 fL (80.0-100.0); Mean Platelet Volume 7.8; Monocytes # (A) 0.4 k/uL (0-1.0); Monocytes % (A) 2 %; Neutrophils # (A) 15.3 k/uL (1.3-7.7); Neutrophils % (A) 94 %; Platelet Count 390 k/uL (150-450); RBC 3.98 m/uL (4.30-5.90); RDW 12.6 % (11.5-15.5); WBC 16.3 k/uL (3.8-10.6)
[2024-10-03] MEDS: PIPERACILLIN-TAZOBACTAM 3.375 GM in SODIUM CHLORIDE 0.9% 100 ML IVPB STA (10:40)
[2024-10-03] MEDS: MORPHINE SULFATE 4 MG/ML SYRINGE IVP STA (10:40)
[2024-10-03] MEDS: LACTATED RINGERS 1,000 ML IV SCH ×2 (10:41→14:58)
[2024-10-03] MEDS: ACETAMINOPHEN TAB 500 MG TAB PO STA (10:41)
[2024-10-03 10:51] LABS: ALT 11 U/L (4-49); AST 15 U/L (17-59); African American GFR (CKD) 80 (>60 ml/min/1.73 sqM); Albumin 3.3 g/dL (3.5-5.0); Alkaline Phosphatase 90 U/L (38-126); Anion Gap 10 mmol/L; Blood Urea Nitrogen 19 mg/dL (9-20); Calcium 8.6 mg/dL (8.4-10.2); Carbon Dioxide 22 mmol/L (22-30); Chloride 100 mmol/L (98-107); Glucose 268 mg/dL (74-99); Non-African American GFR(CKD) 70 (>60 ml/min/1.73 sqM); Potassium 4.8 mmol/L (3.5-5.1); Sodium 132 mmol/L (137-145); Total Bilirubin 0.5 mg/dL (0.2-1.3); Total Protein 6.6 g/dL (6.3-8.2)
[2024-10-03 10:54] LABS: Partial Thromboplastin Time 25.4 sec (22.0-30.0); Prothrombin Time 11.3 sec (10.0-12.5)
--- NOTE | 2024-10-03 11:27 | XR ---
EXAMINATION TYPE: XR foot complete 3 views LT DATE OF EXAM: 10/03/2024 11:07 AM COMPARISON: 06/17/2021 CLINICAL INDICATION: Male, 74 years old with history of infection; PHH, pain FINDINGS: Previous first and second toe amputations. Edematous appearance to the stump soft tissues. Irregulari ty at the stump soft tissues appears increased from 2020. Some subtle soft tissue air along the plant ar aspect of the midfoot/forefoot region. No discrete osseous destruction is seen. IMPRESSION: Previous first and second toe amputations. Edematous appearance to the stump soft tissues and subtle foci of soft tissue air along the forefoot/midfoot plantar aspect. Correlate for cellulitis and exclu de gangrene. No kale osseous destruction to clearly indicate osteomyelitis at this time. [facility], , 10/03/2024 11:24 AM
[2024-10-03] MEDS ORDERED: ACETAMINOPHEN TAB 325 MG TAB PO PRN (11:34)
[2024-10-03] MEDS ORDERED: NALOXONE 0.4 MG/ML 1 ML VIAL IV PRN (11:34)
[2024-10-03] MEDS: VANCOMYCIN 1,500 MG in SODIUM CHLORIDE 0.9% 500 ML 500 ML IVPB STA (11:40)
--- NOTE | 2024-10-03 12:02 | CT ---
EXAMINATION TYPE: CT angio lower extremity bilateral DATE OF EXAM: 10/03/2024 11:38 AM COMPARISON: None. CLINICAL INDICATION: Male, 74 years old with history of vascular insufficency; PHH, Bilatera vascular insufficiency, pt diabetic, sores on both feet. TECHNIQUE: CT angio lower extremity bilateral lower chimney is Multiple thin slice sub-millimeter images were obtained before and after administration of contrast. 3-D reconstructed images and maximum intensity projection images were obtained on a separate works tation. CT angio lower extremity LT CT Contrast: Contrast used:100 ml mL of Isovue 370 with IV Contrast, Oral contrast used: None CT DLP: 1065.2 mGycm, Automated exposure control for dose reduction was used. FINDINGS: CTA Abdomen and pelvis: Severe atherosclerotic disease of the arterial vasculature. The visualized co mmon iliac and external iliac arteries are patent. high-grade narrowing due to noncalcified plaque at the left superficial femoral artery with crit 75% narrowing series 401 image 92. Additional scattere d areas of CTA Lower extremities: Right: The common femoral and superficial femoral arteries are patent. There is varying degrees of ca lcified and noncalcified plaque throughout the lower extremity. With areas of moderate and moderate s pheres narrowing throughout the lower extremity. The most severe is up to 75% narrowing of the superf icial femoral artery series 411 image 108. The posterior tibial artery appears occluded and reconstit uted to at the level of the ankle. The anterior tibial artery is poorly visualized. There is dense ca lcifications present throughout the leg arterial vasculature limiting evaluation. Left: The common femoral is patent. High-grade narrowing due to noncalcified plaque at the left super ficial femoral artery with crit 75% narrowing series 401 image 92. Additional scattered areas of calc ified and noncalcified plaque throughout the left lower extremity with varying degrees of moderate an d high degree of stenosis. The posterior tibial artery and anterior tibial artery are thought to cros s the ankle. PELVIS BLADDER: Unremarkable REPRODUCTIVE: Unremarkable. ABDOMEN & PELVIS STOMACH AND BOWEL: No evidence of bowel obstruction. Few scattered colonic diverticula. PERITONEUM: No evidence of pneumoperitoneum or free fluid. MUSCULOSKELETAL: No acute osseous abnormalities LYMPH NODES: No gross evidence for lymphadenopathy. SOFT TISSUE/ABDOMINAL WALL: Fatty changes of the inguinal canals. IMPRESSION: 1. Severe atherosclerotic disease with high grade stenosis of the proximal superficial femoral arter ies bilaterally. 2. There is poor visualization of the right anterior and posterior tibial arteries. Consider cath la b angiography. 3. The left posterior and anterior tibial arteries cross the ankle on the left. Consider manager cath lab a ngiography for better evaluation given dense calcifications.. [facility], , 10/03/2024 12:00 PM
--- NOTE | 2024-10-03 12:37 | US ---
EXAMINATION TYPE: US venous doppler duplex LE LT DATE OF EXAM: 10/03/2024 10:23 AM COMPARISON: NONE CLINICAL INDICATION: Male, 74 years old with history of pain; pain and swelling in leg, no h/o DVT TECHNIQUE: The lower extremity deep venous system is examined utilizing real time linear array sonog lacey with graded compression, color doppler sonography, and spectral doppler. SIDE PERFORMED: Left FINDINGS: VESSELS IMAGED: Common Femoral Vein Deep Femoral Vein Greater Saphenous Vein * Femoral Vein Popliteal Vein Small Saphenous Vein * Proximal Calf Veins (* superficial vessels) Left Leg: Negative for DVT, Color Doppler imaging shows patency of the vessels. Spectral waveforms a re within normal limits. IMPRESSION: No evidence for DVT within the left lower extremity imaged from the groin to the upper calf. [facility], , 10/03/2024 12:35 PM
[2024-10-03] MEDS ORDERED: DEXTROSE 50% SYRINGE 50 ML IVP PRN ×2 (12:48)
[2024-10-03] MEDS ORDERED: PIPERACILLIN-TAZOBACTAM 4.5 GM in SODIUM CHLORIDE 0.9% 100 ML IVPB SCH (13:00)
--- NOTE | 2024-10-03 13:08 | P.GSCN ---
History of Present Illness Consult date: 10/03/24 Reason for Consult: Left fourth toe gangrene Requesting physician: Manfred Davis History of present illness: Patient is a 74-year-old male with a history of diabetes mellitus, remote left lower extremity DVT not on anticoagulation, previous history of gangrene toes on left foot status post amputation of first and second toes, chronic tobacco use, smoker 1 pack/day for 64 years, hyperlipidemia, hypertension and prostate disorder. Patient presented to the emergency department concerns for left foot infection. States he noticed about 5 days ago that his fourth toe was getting red and then turned black. States he has pain down his left lower extremity that has been chronic, more painful with walking. Denies any fevers or chills, no shortness of breath or chest pain. Patient lives at home alone. [facility] and states he was recently seen there. Patient appears unkept. Vascular surgery was consulted for gangrene of the fourth toe. Review of Systems A 14 point review systems was completed all pertinent positives and negatives as stated in the HPI. Past Medical History Past Medical History: Diabetes Mellitus, Deep Vein Thrombosis (DVT), Eye Disorder, GERD/Reflux, Hyperlipidemia, Hypertension, Prostate Disorder Additional Past Medical History / Comment(s): L foot osteomylitis, DJD, DVT R leg, R eye macular degeneration, BPH, benign colon polyps. History of Any Multi-Drug Resistant Organisms: MRSA Year Discovered:: 06/19/21 MDRO Source:: MRSA TOE Past Surgical History: Orthopedic Surgery, Tonsillectomy Additional Past Surgical History / Comment(s): L great toe amputation, L 2nd toe "bones disconnected", colonoscopy with polypectomy, bilateral cataract removals Past Anesthesia/Blood Transfusion Reactions: No Reported Reaction Past Psychological History: No Psychological Hx Reported Smoking Status: Current every day smoker Past Alcohol Use History: None Reported Past Drug Use History: None Reported - Past Family History Father History Unknown: Yes Family Medical History: No Reported History Mother Family Medical History: No Reported History Additional Family Medical History / Comment(s): Mother was healthy Medications and Allergies Home Medications Medication Instructions Recorded Confirmed Type Tamsulosin HCl [Flomax] 0.8 mg PO HS 12/23/16 10/03/24 History metFORMIN HCL [Glucophage] 1,000 mg PO BID 12/23/16 10/03/24 History Aspirin [Adult Low Dose Aspirin EC] 81 mg PO DAILY 11/01/17 10/03/24 History Cholecalciferol [Vitamin D3 (25 50 mcg PO DAILY 06/17/21 10/03/24 History Mcg = 1000 Iu)] Losartan [Cozaar] 50 mg PO DAILY 06/17/21 10/03/24 History Rosuvastatin Calcium [Crestor] 40 mg PO DAILY 06/17/21 10/03/24 History Empagliflozin [Jardiance] 25 mg PO DAILY 10/03/24 10/03/24 History Podofilox 1 applic TOPICAL DAILY 10/03/24 10/03/24 History SITagliptin [Sitagliptin] 100 mg PO DAILY 10/03/24 10/03/24 History glipiZIDE [Glucotrol] 10 mg PO AC-BID 10/03/24 10/03/24 History Allergies Allergy/AdvReac Type Severity Reaction Status Date / Time sulfamethoxazole Allergy Severe joint Verified 10/03/24 10:33 [From Bactrim] pain, aches ciprofloxacin [From Cipro] Allergy joint Verified 10/03/24 10:33 pain, aches lisinopril Allergy joint Verified 10/03/24 10:33 pain, cough trimethoprim [From Bactrim] Allergy joint Verified 10/03/24 10:33 pain, aches NABIL Inhibitors AdvReac Cough Verified 10/03/24 10:33 Surgical - Exam Vital Signs Temp Pulse Resp BP Pulse Ox 99.9 F H 114 H 18 146/71 95 10/03/24 09:43 10/03/24 09:43 10/03/24 09:43 10/03/24 09:43 10/03/24 09:43 General appearance: The patient is alert, oriented, appears in no acute distress. Appears unkept. HET: Head is normocephalic and atraumatic. Pupils are equal and reactive. Neck: Supple. Heart: Regular. Lungs: Equal expansion, normal respiratory effort. Abdomen: Soft, nontender, nondistended. Extremities: Lower extremities with dry scaly skin. Feet with long thick yellow toenails. Feet dirty with increased pigmentation. Left foot erythema over dorsal aspect of foot with swelling, third toe with crack and skin, fourth toe gangrenous changes, bleeding. Foul odor. Palpable bilateral femoral pulses. Positive PT and DP signals. Neurological: No focal deficits. Strength and sensation are grossly intact. Results - Labs 10/03/24 10:26 10/03/24 10:26 Abnormal Lab Results - Last 24 Hours (Table) 10/03/24 10/03/24 Range/Units 10:26 10:26 WBC 16.3 H (3.8-10.6) k/uL RBC 3.98 L (4.30-5.90) m/uL Hgb 11.6 L (13.0-17.5) gm/dL Hct 35.0 L (39.0-53.0) % Neutrophils # 15.3 H (1.3-7.7) k/uL Lymphocytes # 0.4 L (1.0-4.8) k/uL Sodium 132 L (137-145) mmol/L Glucose 268 H (74-99) mg/dL AST 15 L (17-59) U/L Albumin 3.3 L (3.5-5.0) g/dL Diabetes panel 10/03/24 Range/Units 10:26 Sodium 132 L (137-145) mmol/L Potassium 4.8 (3.5-5.1) mmol/L Chloride 100 (98-107) mmol/L Carbon Dioxide 22 (22-30) mmol/L BUN 19 (9-20) mg/dL Creatinine 1.05 (0.66-1.25) mg/dL Glucose 268 H (74-99) mg/dL Calcium 8.6 (8.4-10.2) mg/dL AST 15 L (17-59) U/L ALT 11 (4-49) U/L Alkaline Phosphatase 90 (38-126) U/L Total Protein 6.6 (6.3-8.2) g/dL Albumin 3.3 L (3.5-5.0) g/dL Calcium panel 10/03/24 Range/Units 10: Calcium 8.6 (8.4-10.2) mg/dL Albumin 3.3 L (3.5-5.0) g/dL Pituitary panel 10/03/24 Range/Units 10:26 Sodium 132 L (137-145) mmol/L Potassium 4.8 (3.5-5.1) mmol/L Chloride 100 (98-107) mmol/L Carbon Dioxide 22 (22-30) mmol/L BUN 19 (9-20) mg/dL Creatinine 1.05 (0.66-1.25) mg/dL Glucose 268 H (74-99) mg/dL Calcium 8.6 (8.4-10.2) mg/dL Adrenal panel 10/03/24 Range/Units 10:26 Sodium 132 L (137-145) mmol/L Potassium 4.8 (3.5-5.1) mmol/L Chloride 100 (98-107) mmol/L Carbon Dioxide 22 (22-30) mmol/L BUN 19 (9-20) mg/dL Creatinine 1.05 (0.66-1.25) mg/dL Glucose 268 H (74-99) mg/dL Calcium 8.6 (8.4-10.2) mg/dL Total Bilirubin 0.5 (0.2-1.3) mg/dL AST 15 L (17-59) U/L ALT 11 (4-49) U/L Alkaline Phosphatase 90 (38-126) U/L Total Protein 6.6 (6.3-8.2) g/dL Albumin 3.3 L (3.5-5.0) g/dL - Imaging Comments: Left foot x-ray reports previous first and second toe amputation. Edematous appearance to the stump soft tissue and subtle foci of soft tissue air along the forefoot/midfoot plantar aspect. Correlate for cellulitis and exclude gangrene. No kale osseous destruction to clearly indicate osteomyelitis at this time. Bilateral lower extremity CT angiogram reports severe atherosclerotic disease with high-grade stenosis of the proximal superficial femoral arteries bilaterally. Poor visualization of the right anterior and posterior tibial arteries. Consider Distribution Operations Supervisor angiography. Left posterior and anterior tibial arteries crossed the ankle on the left. Consider Distribution Operations Supervisor angiography for better evaluation given dense calcification. Assessment and Plan Assessment: 1. Left foot gangrene fourth toe 2. Left foot cellulitis 3. Arthrosclerotic disease of the lower extremities 4. Diabetes mellitus 5. Chronic tobacco use 6. History of previous gangrenous toes status post amputation first and second toe of the left foot 7. History of left lower extremity deep vein thrombosis Plan: 1. N.p.o. after midnight 2. Strict glycemic control 3. Arterial ultrasound of lower extremities ordered 4. Continue antibiotics per primary medical team, consider ID consult 5. Will plan for fourth toe amputation with possible transmetatarsal amputation 6. Rest of medical management per primary medical team Thank you for this consultation, we will continue to follow along. The impression and plan of care has been dictated as directed. I performed a history and examination of this patient, discussed the same with the dictator. I agree with the dictator's note ,documented as a scribe. Any additional findings or plans will be noted.
--- NOTE | 2024-10-03 13:32 | US ---
EXAMINATION TYPE: US arterial LE single level DATE OF EXAM: 10/03/2024 1:21 PM COMPARISONS: CT Angio CLINICAL INDICATION: Male, 74 years old with history of Gangrene left fourth toe, diabetes mellitus; TECHNIQUE: Systolic pressures were taken of the upper and lower extremity arteries with ankle-brachia l indices and toe brachial indices calculated bilaterally. History of: Smoker: Current Smoker Hypertension: Yes Diabetic: Yes Hyperlipidemia: Yes TIA/CVA: No Previous Vascular Surgery: No CAD: No IN: No Vascular Ulcers: Left Claudication: Left Gangrene: Left FINDINGS: Doppler Waveforms: Right: Monophasic Left: Monophasic Brachial Artery systolic pressure: Right: 120 Left: NA Posterior Tibial artery systolic pressure: Right: Unable to obtain. Left: Unable to obtain. Dorsalis Pedis artery systolic pressure: Right: Unable to obtain. Left: Unable to obtain. Toe artery systolic pressure: Right: Unable to obtain. Left: Unable to obtain. Ankle-Brachial Indices: Right: Unable to obtain. Left: Unable to obtain. Toe Brachial Indices: Right: Unable to obtain. Left: Unable to obtain. (Normal > 0.6; Mild 0.35 - 0.59, Moderate 0.12 - 0.34, Severe <0.12) Unable to obtain waveforms due to pathology IMPRESSION: Unable to obtain waveforms due to pathology [facility], , 10/03/2024 1:30 PM
--- NOTE | 2024-10-03 14:33 | P.HPIM ---
History of Present Illness H&P Date: 10/03/24 History of present illness; 74-year-old male with PMH of bit-cyrpcrz-uzpbyrowq diabetes mellitus, hyp ertension, hyperlipidemia, previous DVT approximately 20 years ago which was treated with heparin and BPH presented emergency room for concerns for a foot infection. States this has been bugging him for a few days and progressively worsening, particularly with ambulation. He does have a history of infection in the first and second digit of the left foot, with previous culture positive for Pseudomonas as well as MRSA. He endorses some chills over that time. However denies any confirmed fevers, nausea, vomiting, changes in appetite. Social history: -Smoking: Current everyday smoker. [id number] history. -Alcohol: Denies -Recreational drug use: Denies Labratory review: -WBC 16.3, hemoglobin 11.6 hematocrit 35.0, platelet 390; sodium 132, Tessman 4.8, BUN 19, creatinine 1.05, lactic acid 1.7, calcium 8.6, total bilirubin 0.5, AST 15, ALT 11, alkaline phosphatase 90 Imaging: -Lower extremity CTA showed severe atherosclerotic disease with high-grade stenosis of the proximal superficial femoral arteries bilaterally; poorly visualized right anterior and posterior tibial arteries; left posterior and anterior tibial arteries cross the ankle on the left - Consider [employer] angiography for better evaluation given dense calcifications -Left foot x-ray showed previous first and second toe amputations; edematous appearance of the stump of the soft tissues and subtle foci of soft tissue air along the forefoot/midfoot plantar aspect; no kale osseous destruction to clearly indicate osteomyelitis at this time -Left lower extremity duplex venous ultrasound completed, currently pending read Vitals: -On arrival: Febrile 99.9 F, blood pressure 146/71, heart rate 114, respiratory rate 18, SpO2 95% on room air -Most recently: Febrile 1 1.2 F, blood pressure 110/61, heart rate 101, respiratory rate 18, SpO2 94% room air Patient admitted to internal medicine service REVIEW OF SYSTEMS: Pertinent positives and negatives noted in HPI. The rest of the 14-point review of systems is negative. Physical Exam: General: nontoxic, no distress, appears at stated age. Derm: warm, dry, intact Head: atraumatic, normocephalic, symmetric Eyes: EOMI, anicteric sclera Mouth: no lip lesion, mucus membranes moist Cardiovascular: S1 S2 reg, no murmur, rubs, or gallops Lungs: CTA bilateral, no rales, no accessory muscle use; diminished bilaterally Abdominal: soft, non-tender to palpataion, no appreciable organomegaly Extremities: no gross muscle atrophy, no edema, no contractures; tenderness to palpation from below the left knee to the toes; first and second toe on left foot amputated, gangrenous appearing fourth digit of the left foot with foul odor. Difficulty palpating pedal pulses bilaterally. Neuro: Alert, Oriented, CNII-XII grossly intact, gait normal Psych: somewhat disheveled in appearance, appropriate affect Assessment and plan 74-year-old male with PMH of huu-ehroypm-petsyvtji diabetes mellitus, hypertension, hyperlipidemia, previous DVT proximately 20 years ago treated with heparin, multiple previous foot infections with history of Pseudomonas and MRSA and BPH presented emergency room for concerns for a foot infection. #Sepsis, likely secondary to osteomyelitis of the left foot #Left foot, fourth digit gangrene #Left foot cellulitis -History of MRSA infection -Continue with Cefepime 2g Q8H, Flagyl 500 Q8H and vancomycin -X-ray inconclusive to osteomyelitis -CTA left lower extremity showed evidence of osteomyelitis at the 4th digit of the left foot -2 L LR bolus given; maintained on LR at 130 cc/h -CRP and ESR currently pending -Blood culture ordered, currently pending -Vascular surgery consulted for surgical debridement -ID consulted #History of DVT, not currently on anticoagulation #Atherosclerotic disease lower extremities -Endorses left lower extremity tenderness to palpation -Bilateral duplex venous ultrasound of the left lower extremity showed no evidence of DVT -Resume home aspirin 81 mg daily, and Lipitor 80 mg daily #Rwf-fmvftgs-ktkhyooqa type 2 diabetes mellitus -Accu-Cheks ACHS -Sliding scale initiated -Hemoglobin A1c ordered, currently pending pending -Monitor for hypoglycemia #Anemia of chronic disease -Continue monitor CBC -Iron studies, transferrin, ferritin, reticulocyte count ordered, currently pending #Hypovolemic hyponatremia -Sodium on arrival 132 -Continue with LR at 130 cc/h -Monitor BMP #Hypertension -Hold home Cozaar #Hyperlipidemia -Continue home Lipitor 80 mg daily #BPH -Continue home Flomax 0.8 mg nightly GI prophylaxis: Protonix 40 mg daily DVT prophylaxis: Heparin 5000 unit SQ every 12 hours The patient is admitted with an anticipated more than than 2 midnight stay for evaluation of possible osteomyelitis with gangrene of the fourth digit on the left foot CODE STATUS: Full code Discussed with: Patient Anticipated discharge place: Pending clinical course Dictation was produced using [employer] dictation software. please excuse any grammatical, word or spelling errors. Siva Florentino MD PGY-1 IM I have seen and evaluated the patient today. Discussed with the resident and agree with the residents finding and plan as documented in the resident's note. Changes highlighted in blue font. Past Medical History Past Medical History: Diabetes Mellitus, Deep Vein Thrombosis (DVT), Eye Disorder, GERD/Reflux, Hyperlipidemia, Hypertension, Prostate Disorder Additional Past Medical History / Comment(s): L foot osteomylitis, DJD, DVT R leg, R eye macular degeneration, BPH, benign colon polyps. History of Any Multi-Drug Resistant Organisms: MRSA Date of last positivie culture/infection: 06/19/21 MDRO Source:: MRSA TOE Past Surgical History: Orthopedic Surgery, Tonsillectomy Additional Past Surgical History / Comment(s): L great toe amputation, L 2nd toe "bones disconnected", colonoscopy with polypectomy, bilateral cataract removals Past Anesthesia/Blood Transfusion Reactions: No Reported Reaction Past Psychological History: No Psychological Hx Reported Smoking Status: Current every day smoker Past Alcohol Use History: None Reported Past Drug Use History: None Reported - Past Family History Father History Unknown: Yes Family Medical History: No Reported History Mother Family Medical History: No Reported History Additional Family Medical History / Comment(s): Mother was healthy Medications and Allergies Home Medications Medication Instructions Recorded Confirmed Type Tamsulosin HCl [Flomax] 0.8 mg PO HS 12/23/16 10/03/24 History metFORMIN HCL [Glucophage] 1,000 mg PO BID 12/23/16 10/03/24 History Aspirin [Adult Low Dose Aspirin EC] 81 mg PO DAILY 11/01/17 10/03/24 History Cholecalciferol [Vitamin D3 (25 50 mcg PO DAILY 06/17/21 10/03/24 History Mcg = 1000 Iu)] Losartan [Cozaar] 50 mg PO DAILY 06/17/21 10/03/24 History Rosuvastatin Calcium [Crestor] 40 mg PO DAILY 06/17/21 10/03/24 History Empagliflozin [Jardiance] 25 mg PO DAILY 10/03/24 10/03/24 History Podofilox 1 applic TOPICAL DAILY 10/03/24 10/03/24 History SITagliptin [Sitagliptin] 100 mg PO DAILY 10/03/24 10/03/24 History glipiZIDE [Glucotrol] 10 mg PO AC-BID 10/03/24 10/03/24 History Allergies Allergy/AdvReac Type Severity Reaction Status Date / Time sulfamethoxazole Allergy Severe joint Verified 10/03/24 10:33 [From Bactrim] pain, aches ciprofloxacin [From Cipro] Allergy joint Verified 10/03/24 10:33 pain, aches lisinopril Allergy joint Verified 10/03/24 10:33 pain, cough trimethoprim [From Bactrim] Allergy joint Verified 10/03/24 10:33 pain, aches NABIL Inhibitors AdvReac Cough Verified 10/03/24 10:33 Physical Exam Vitals: Vital Signs Temp Pulse Resp BP Pulse Ox 10/03/24 11:37 101.2 F H 101 H 18 110/61 94 L 10/03/24 10:38 102.7 F H 110 H 18 127/75 96 10/03/24 09:43 99.9 F H 114 H 18 146/71 95 Intake and Output 10/02/24 10/03/24 10/03/24 22:59 06:59 14:59 Other: Weight 85.729 kg Results CBC & Chem 7: 10/03/24 10:26 10/03/24 10:26 Labs: Abnormal Lab Results - Last 24 Hours (Table) 10/03/24 10/03/24 Range/Units 10:26 10:26 WBC 16.3 H (3.8-10.6) k/uL RBC 3.98 L (4.30-5.90) m/uL Hgb 11.6 L (13.0-17.5) gm/dL Hct 35.0 L (39.0-53.0) % Neutrophils # 15.3 H (1.3-7.7) k/uL Lymphocytes # 0.4 L (1.0-4.8) k/uL Sodium 132 L (137-145) mmol/L Glucose 268 H (74-99) mg/dL AST 15 L (17-59) U/L Albumin 3.3 L (3.5-5.0) g/dL
[2024-10-03] MEDS ORDERED: PIPERACILLIN-TAZOBACTAM 3.375 GM in SODIUM CHLORIDE 0.9% 100 ML IVPB SCH (16:00)
[2024-10-03] MEDS: metroNIDAZOLE-NS PMX 500 MG in SALINE 1 100ML.BAG IVPB SCH (16:43)
[2024-10-03] MEDS ORDERED: metFORMIN 500 MG TAB PO SCH (17:30)
[2024-10-03] MEDS ORDERED: glipiZIDE 5 MG TAB PO SCH (17:30)
[2024-10-03] MEDS: INSULIN LISPRO (HumaLOG) 100 UNIT/ML 10 mL VL SQ SCH (17:58)
[2024-10-03 17:59] LABS: Glucose,Whole Blood 118 mg/dL (70-110)
[2024-10-03] MEDS: CEFEPIME 2 GM in SODIUM CHLORIDE 0.9% 100 ML IVPB SCH (18:57)
[2024-10-03] MEDS: MORPHINE SULFATE 4 MG/ML SYRINGE IV PRN (19:06)
[2024-10-03] MEDS: TAMSULOSIN 0.4 MG CAP.ER.24H PO SCH (20:05)
[2024-10-03] MEDS: HEPARIN SODIUM,PORCINE 5,000 UNIT/ML 1 ML VIAL SQ SCH (20:06)
[2024-10-03 20:14] LABS: Glucose,Whole Blood 171 mg/dL (70-110)
--- NOTE | 2024-10-03 20:39 | P.CONS ---
History of Present Illness - Reason for Consult Consult date: 10/03/24 Osteomyelitis Requesting physician: Elias Florentino - Chief Complaint Left foot toe discoloration x days - History of Present Illness Patient is a 74-year-old lady with a past medical history of significant for Diabetes Mellitus, Deep Vein Thrombosis (DVT), Eye Disorder, GERD/Reflux, Hyperlipidemia, Hypertension, Prostate Disorder history of diabetic foot infection requiring amputation current smoker presenting to the hospital for evaluation of left foot toe discoloration that have been has been getting worse over the last few days patient denies any history of any trauma has been complaining of pain sharp moderate to severe intensity with associated disco loration some swelling redness of the left foot for the patient presented to hospital on presentation to hospital patient was febrile with a temperature of 102.7 F patient was tachycardic but not hypotensive or hypoxic no need for supplemental oxygen white count of 16.3 with a left shift creatinine 1.05 AST mildly elevated patient did have blood cultures obtained as well as local culture was started on broad-spectrum antibiotic infectious he was consulted for further management of antibiotic therapy patient has been evaluated by vascular surgery planning for amputation of the third toe versus transmetatarsal amputation scheduled for tomorrow Review of Systems Positive point and negatives has been mentioned in the HPI, complete review of systems was performed and all other systems are negative Past Medical History Past Medical History: Diabetes Mellitus, Deep Vein Thrombosis (DVT), Eye Disorder, GERD/Reflux, Hyperlipidemia, Hypertension, Prostate Disorder Additional Past Medical History / Comment(s): L foot osteomylitis, DJD, DVT R leg, R eye macular degeneration, BPH, benign colon polyps. History of Any Multi-Drug Resistant Organisms: MRSA Year Discovered:: 06/19/21 MDRO Source:: MRSA TOE Past Surgical History: Orthopedic Surgery, Tonsillectomy Additional Past Surgical History / Comment(s): L great toe amputation, L 2nd toe "bones disconnected", colonoscopy with polypectomy, bilateral cataract removals Past Anesthesia/Blood Transfusion Reactions: No Reported Reaction Past Psychological History: No Psychological Hx Reported Smoking Status: Current every day smoker Past Alcohol Use History: None Reported Past Drug Use History: None Reported - Past Family History Father History Unknown: Yes Family Medical History: No Reported History Mother Family Medical History: No Reported History Additional Family Medical History / Comment(s): Mother was healthy Medications and Allergies Home Medications Medication Instructions Recorded Confirmed Type Tamsulosin HCl [Flomax] 0.8 mg PO HS 12/23/16 10/03/24 History metFORMIN HCL [Glucophage] 1,000 mg PO BID 12/23/16 10/03/24 History Aspirin [Adult Low Dose Aspirin EC] 81 mg PO DAILY 11/01/17 10/03/24 History Cholecalciferol [Vitamin D3 (25 50 mcg PO DAILY 06/17/21 10/03/24 History Mcg = 1000 Iu)] Losartan [Cozaar] 50 mg PO DAILY 06/17/21 10/03/24 History Rosuvastatin Calcium [Crestor] 40 mg PO DAILY 06/17/21 10/03/24 History Empagliflozin [Jardiance] 25 mg PO DAILY 10/03/24 10/03/24 History Podofilox 1 applic TOPICAL DAILY 10/03/24 10/03/24 History SITagliptin [Sitagliptin] 100 mg PO DAILY 10/03/24 10/03/24 History glipiZIDE [Glucotrol] 10 mg PO AC-BID 10/03/24 10/03/24 History Allergies Allergy/AdvReac Type Severity Reaction Status Date / Time sulfamethoxazole Allergy Severe joint Verified 10/03/24 10:33 [From Bactrim] pain, aches ciprofloxacin [From Cipro] Allergy joint Verified 10/03/24 10:33 pain, aches lisinopril Allergy joint Verified 10/03/24 10:33 pain, cough trimethoprim [From Bactrim] Allergy joint Verified 10/03/24 10:33 pain, aches NABIL Inhibitors AdvReac Cough Verified 10/03/24 10:33 Physical Exam Vitals: Vital Signs Temp Pulse Resp BP Pulse Ox 10/03/24 15:00 98.8 F 87 18 126/67 94 L 10/03/24 11:37 101.2 F H 101 H 18 110/61 94 L 10/03/24 10:38 102.7 F H 110 H 18 127/75 96 10/03/24 09:43 99.9 F H 114 H 18 146/71 95 Intake and Output 10/03/24 10/03/24 10/03/24 06:59 14:59 22:59 Other: Weight 85.729 kg GENERAL DESCRIPTION: Elderly male lying in bed, no distress. No tachypnea or accessory muscle of respiration use. HEENT: Shows Pallor , no scleral icterus. Oral mucous membrane is dry. NECK: Trachea central, no thyromegaly. LUNGS: Unlabored breathing. Clear to auscultation anteriorly. No wheeze or crackle. HEART: S1, S2, regular rate and rhythm. No loud murmur ABDOMEN: Soft, no tenderness , guarding or rigidity, no organomegaly EXTREMITIES: Left fourth toe is necrotic with associated swelling redness on the dorsum aspect of the left foot he did have a previous first and second amputation SKIN: No rash, no masses palpable. NEUROLOGICAL: The patient is awake, alert,, mood and affect normal. Results CBC & Chem 7: 10/03/24 10:26 10/03/24 10: Labs: Abnormal Lab Results - Last 24 Hours (Table) 10/03/24 10/03/24 10/03/24 Range/Units 10:26 10: 10:26 WBC 16.3 H (3.8-10.6) k/uL RBC 3.98 L (4.30-5.90) m/uL Hgb 11.6 L (13.0-17.5) gm/dL Hct 35.0 L (39.0-53.0) % Neutrophils # 15.3 H (1.3-7.7) k/uL Lymphocytes # 0.4 L (1.0-4.8) k/uL Sodium 132 L (137-145) mmol/L Glucose 268 H (74-99) mg/dL AST 15 L (17-59) U/L C-Reactive Protein 31.4 H (<1.0) mg/dL Albumin 3.3 L (3.5-5.0) g/dL Assessment and Plan (1) Sepsis Current Visit: Yes Status: Acute Code(s): A41.9 - SEPSIS, UNSPECIFIED ORGANISM SNOMED Code(s): 31863069 (2) Diabetic foot infection Current Visit: Yes Status: Acute Code(s): E11.628 - TYPE 2 DIABETES MELLITUS WITH OTHER SKIN COMPLICATIONS; L08.9 - LOCAL INFECTION OF THE SKIN AND SUBCUTANEOUS TISSUE, UNSP SNOMED Code(s): 729299633 (3) Gangrene of toe of left foot Current Visit: Yes Status: Acute Code(s): I96 - GANGRENE, NOT ELSEWHERE CLASSIFIED SNOMED Code(s): 05300508568272404 (4) Osteomyelitis Current Visit: No Status: Acute Code(s): M86.9 - OSTEOMYELITIS, UNSPECIFIED SNOMED Code(s): 35171767 Plan: 1patient presented hospital with sepsis in this patient who did have a fever tachycardia elevated white committee criteria for SIRS source is left diabetic foot infection with gangrene of the fourth toe and will need to cover for the polymicrobial blanca associated with diabetic foot infection in this patient who did have previous history of MRSA as well as stenotrophomonas 2-patient with multiple antibiotic ALLERGIES that would limit the number of antibiotic safe to use 3-patient will be treated with broad-spectrum antibiotics, vancomycin while watching his kidney function closely in addition to cefepime and Flagyl. 4await surgical debridement/amputation and deep culture scheduled for tomorrow We will follow on clinical condition and cultures to further adjust medication if needed Thank you for this consultation we will follow the patient along with you Dictation was produced using [employer] dictation software. please excuse any grammatical, word or spelling errors. Time with Patient: Greater than 30
[2024-10-03 21:22] LABS: Glucose,Whole Blood 184 mg/dL (70-110)
[2024-10-03] MEDS: HYDROmorphone 1 MG/ML 1 ML SYRINGE IVP PRN (23:09)
[2024-10-04] MEDS: VANCOMYCIN 1,500 MG in SODIUM CHLORIDE 0.9% 500 ML 500 ML IVPB SCH (01:01)
[2024-10-04] MEDS: HYDROcodone/APAP 10-325MG 1 EACH TAB PO PRN (03:22)
[2024-10-04] MEDS: CEFEPIME 2 GM in SODIUM CHLORIDE 0.9% 100 ML IVPB SCH (04:37)
[2024-10-04 06:28] LABS: Glucose,Whole Blood 147 mg/dL (70-110)
[2024-10-04 08:46] LABS: Reticulocyte % 0.99 % (0.10-1.80)
[2024-10-04 08:52] LABS: Basophils # (A) 0.05 X 10*3/uL (0.00-0.10); Basophils % (A) 0.3 %; Eosinophils # (A) 0.03 X 10*3/uL (0.04-0.35); Eosinophils % (A) 0.2 %; HGB 9.8 g/dL (13.0-17.0); Lymphocytes # (A) 0.89 X 10*3/uL (0.90-5.00); Lymphocytes % (A) 5.6 %; MCH 29.7 pg (27.0-32.0); MCHC 33.8 g/dL (32.0-37.0); MCV 87.9 FL (80.0-97.0); Mean Platelet Volume 9.4 FL (9.5-12.2); Monocytes # (A) 1.16 X 10*3/uL (0.20-1.00); Monocytes % (A) 7.3 %; NRBC Per 100 WBC 0 X 10*3/uL (0.00-0.01); Neutrophils # (A) 13.55 X 10*3/uL (1.80-7.70); Neutrophils % (A) 85.3 %; Platelet Count 300 X 10*3/uL (140-440); RDW 12.2 % (11.5-14.5); WBC 15.88 X 10*3/uL (4.50-10.00)
[2024-10-04 08:55] LABS: % Iron Saturation 6.08 (15.00-50.00); ALT 6 U/L (10-49); AST 13 U/L (14-35); Albumin 2.6 g/dL (3.8-4.9); Alkaline Phosphatase 65 U/L (41-126); BUN/Creat Ratio 14.56 Ratio (12.00-20.00); Blood Urea Nitrogen 13.1 mg/dL (9.0-27.0); Carbon Dioxide 20.3 mmol/L (21.6-31.8); Chloride 103 mmol/L (96-109); Globulin 2.9 g/dL (1.6-3.3); Glucose 91 mg/dL (70-110); Potassium 4.1 mmol/L (3.5-5.5); Sodium 135 mmol/L (135-145); Total Bilirubin <0.2 mg/dL (0.3-1.2); Total Protein 5.5 g/dL (6.2-8.2)
[2024-10-04] MEDS ORDERED: LINAGLIPTIN 5 MG TABLET PO SCH (09:00)
[2024-10-04] MEDS ORDERED: LOSARTAN 50 MG TAB PO SCH (09:00)
[2024-10-04] MEDS ORDERED: DAPAGLIFLOZIN PROPANEDIOL 10 MG TABLET PO SCH (09:00)
[2024-10-04] MEDS: PANTOPRAZOLE 40 MG TABLET PO SCH (09:26)
[2024-10-04] MEDS: CHOLECALCIFEROL 25 MCG (1000 IU) TABLET PO SCH (09:26)
[2024-10-04] MEDS: ATORVASTATIN 80 MG TAB PO SCH (09:26)
[2024-10-04] MEDS: ASPIRIN 81 MG PO SCH (09:26)
[2024-10-04 11:40] LABS: Glucose,Whole Blood 81 mg/dL (70-110)
[2024-10-04] MEDS: IV FLUID CONTINUATION 1,000 ML IV ONE (11:42)
[2024-10-04] MEDS: ONDANSETRON 4 MG/2 ML VIAL IVP STA (12:36)
[2024-10-04] MEDS: DEXAMETHASONE SOD PHOSPHATE 4 MG/ML 1 ML VIAL IVP STA (12:37)
--- NOTE | 2024-10-04 12:48 | P.PN ---
Subjective Progress Note Date: 10/04/24 74-year-old male with PMH of bha-tfytumo-oruncsukz diabetes mellitus, hypertension, hyperlipidemia, previous DVT approximately 20 years ago which was treated with heparin and BPH presented emergency room for concerns for a foot infection. States this has been bugging him for a few days and progressively w orsening, particularly with ambulation. He does have a history of infection in the first and second digit of the left foot, with previous culture positive for Pseudomonas as well as MRSA. He endorses some chills over that time. However denies any confirmed fevers, nausea, vomiting, changes in appetite. 10/04 - He is seen and examined at bedside this morning, now on the 4th floor. Overnight he had worsening pain, for which she received Dilaudid which she stated helped more than the morphine he had previously been receiving. He was also noted to have 686 cc of urine on his bladder scan, however did not want to have a khan catheter placed. He was noted to have some better urine production throughout the night and a repeat bladder scan was done early this morning which showed ~200 cc of urine. REVIEW OF SYSTEMS: Pertinent positives and negatives noted in HPI. Physical Exam: General: nontoxic, no distress, appears at stated age. Unkempt in appearance Derm: warm, dry, intact Head: atraumatic, normocephalic, symmetric Eyes: EOMI, anicteric sclera Mouth: no lip lesion, mucus membranes moist Cardiovascular: S1 S2 reg, no murmur, rubs, or gallops Lungs: CTA bilateral, no rales, no accessory muscle use; diminished bilaterally Abdominal: soft, non-tender to palpataion, no appreciable organomegaly Extremities: no gross muscle atrophy, no edema, no contractures; tenderness to palpation from below the left knee to the toes; first and second toe on left foot amputated, gangrenous appearing fourth digit of the left foot with foul odor. Difficulty palpating pedal pulses bilaterally. Neuro: Alert, Oriented, CNII-XII grossly intact, gait normal Psych: appropriate affect Data Received Today: Labs: C15.88, hemoglobin 9.8, Crespo crit 29.0, platelet 300; sodium 135, potassium 4.1, BUN 13.1, creatinine 0.9, ESR 79 Imagining: No new imaging today Assessment and plan 74-year-old male with PMH of oip-nnwfrvy-xlttmqvwm diabetes mellitus, hypertension, hyperlipidemia, previous DVT proximately 20 years ago treated with heparin, multiple previous foot infections with history of Pseudomonas and MRSA and BPH presented emergency room for concerns for a foot infection. #Sepsis, likely secondary to diabetic foot disease and osteomyelitis of the left foot #Left foot, fourth digit gangrene #Left foot cellulitis -History of MRSA and Pseudomonas infection -Continue with Cefepime 2g Q8H, Flagyl 500 Q8H and vancomycin -CTA left lower extremity showed evidence of osteomyelitis at the 4th digit of the left foot -2 L LR bolus given yesterday; maintained on LR at 130 cc/h -CRP found to be 31.4 and ESR 79 -Blood culture preliminarily showing gram-positive cocci in clusters, possible MRSA infection -Vascular surgery consulted for likely surgical debridement and evaluation PAD -ID consulted #History of DVT, not currently on anticoagulation #Atherosclerotic disease lower extremities -Endorses left lower extremity tenderness to palpation -Bilateral duplex venous ultrasound of the left lower extremity showed no evidence of DVT -Resume home aspirin 81 mg daily, and Lipitor 80 mg daily -Vascular surgery consulted for likely surgical debridement and evaluation PAD #Yer-phxbtvx-chwcnamkj type 2 diabetes mellitus -Accu-Cheks ACHS -Sliding scale initiated -Hemoglobin A1c 8.6 -Monitor for hypoglycemia #Anemia of chronic disease, likely mixed micro and macrocytic with evidence of iron deficiency -Continue monitor CBC -Iron studies: Iron 9, TIBC 148, 6.08% saturation, transferrin 106, ferritin 338, reticulocyte count 0.99 -Initiate on ferrous sulfate 325 mg daily, multivitamin and folic acid -Vitamin B12 and folate ordered, currently pending #Hypovolemic hyponatremia, improved -Sodium on arrival 135 -Continue with LR at 130 cc/h -Monitor BMP #Hypertension -Hold home Cozaar to maintain permissive hypertension in the setting of sepsis #Hyperlipidemia -Continue home Lipitor 80 mg daily #BPH -Continue home Flomax 0.8 mg nightly GI prophylaxis: Protonix 40 mg daily DVT prophylaxis: Heparin 5000 unit SQ every 12 hours Code status: Full code F: LR@130 cc/h E: Replete as needed N: N.p.o. after midnight A: Ambulatory at baseline Anticipated discharge place: Pending clinical course Anticipated discharge time: Pending clinical course Dictation was produced using [employer] software. please excuse any grammatical, word or spelling errors. Siva Florentino MD PGY-1 IM I saw and evaluated the patient during the juarez and critical portions of this encounter, and discussed the case in detail with the resident author of this note, I agree with the Assessment and Plan, and my changes, if any, are highlighted in blue. Objective - Vital Signs Vital signs: Vital Signs Temp 99.4 F 10/04/24 01:00 Pulse 100 10/04/24 01:00 Resp 18 10/04/24 01:00 BP 151/73 10/04/24 01:00 Pulse Ox 94 L 10/04/24 01:00 FiO2 Intake & Output 10/03/24 10/04/24 10/04/24 18:59 06:59 18:59 Intake Total 500 Output Total 1225 Balance -725 Weight 85.729 kg 85.729 kg Intake: Oral 500 Output: Urine 1225 Other: # Voids 2 - Labs CBC & Chem 7: 10/04/24 05:44 10/04/24 05:44 Labs: Abnormal Lab Results - Last 24 Hours (Table) 10/03/24 10/03/24 10/03/24 Range/Units 10:26 10:26 10:26 WBC 16.3 H (3.8-10.6) k/uL RBC 3.98 L (4.30-5.90) m/uL Hgb 11.6 L (13.0-17.5) gm/dL Hct 35.0 L (39.0-53.0) % Neutrophils # 15.3 H (1.3-7.7) k/uL Lymphocytes # 0.4 L (1.0-4.8) k/uL ESR 79 H (0-20) mm/Hr Sodium 132 L (137-145) mmol/L Glucose 268 H (74-99) mg/dL POC Glucose (mg/dL) (70-110) mg/dL AST 15 L (17-59) U/L C-Reactive Protein (<1.0) mg/dL Albumin 3.3 L (3.5-5.0) g/dL 10/03/24 10/03/24 10/03/24 Range/Units 10:26 17:56 20:11 WBC (3.8-10.6) k/uL RBC (4.30-5.90) m/uL Hgb (13.0-17.5) gm/dL Hct (39.0-53.0) % Neutrophils # (1.3-7.7) k/uL Lymphocytes # (1.0-4.8) k/uL ESR (0-20) mm/Hr Sodium (137-145) mmol/L Glucose (74-99) mg/dL POC Glucose (mg/dL) 118 H 171 H (70-110) mg/dL AST (17-59) U/L C-Reactive Protein 31.4 H (<1.0) mg/dL Albumin (3.5-5.0) g/dL 10/03/24 10/04/24 Range/Units 21:21 06:27 WBC (3.8-10.6) k/uL RBC (4.30-5.90) m/uL Hgb (13.0-17.5) gm/dL Hct (39.0-53.0) % Neutrophils # (1.3-7.7) k/uL Lymphocytes # (1.0-4.8) k/uL ESR (0-20) mm/Hr Sodium (137-145) mmol/L Glucose (74-99) mg/dL POC Glucose (mg/dL) 184 H 147 H (70-110) mg/dL AST (17-59) U/L C-Reactive Protein (<1.0) mg/dL Albumin (3.5-5.0) g/dL Microbiology - Last 24 Hours (Table) 10/03/24 10:28 Blood Culture Gram Stain - Preliminary Blood Blood Culture - Preliminary Molecular ID
[2024-10-04] MEDS ORDERED: SUCCINYLCHOLINE CHLORIDE 200 MG/10 ML VIAL IV ONE (13:10)
[2024-10-04] MEDS ORDERED: PROPOFOL 10 MG/ML 20 ML VIAL IV ONE (13:10)
[2024-10-04] MEDS ORDERED: fentaNYL (PF) 50 MCG/ML 2 ML AMP ONE (13:10)
[2024-10-04] MEDS ORDERED: LIDOCAINE 1% INJ 10MG/ML (20 ML MDV) ONE (13:10)
[2024-10-04] MEDS ORDERED: LIDOCAINE 4% LTA KIT (4 ML) TOPICAL ONE (13:10)
--- NOTE | 2024-10-04 14:42 | P.OP ---
Date of Procedure: 10/04/24 Preoperative Diagnosis: Irreversible ischemia 3rd, 4th and 5th toes left foot. Status post 1st and 2nd toe amputation in the distant past. Postoperative Diagnosis: Same. Procedure(s) Performed: Transmetatarsal amputation left foot. Anesthesia: AMITA Surgeon: Dagoberto Alicea Estimated Blood Loss (ml): 5 Pathology: other (Transmetatarsal amputation left foot.) Condition: stable Disposition: no change Indications for Procedure: Patient is a 74-year-old male with a 20+ year history of diabetes who presented yesterday with gangrenous changes of the 3rd, 4th and 5th toes of the left foot. These were deemed nonviable and patient was offered amputation. He had previously undergone amputation of the 1st and 2nd toe and patient is now offered transmetatarsal amputation. The procedure, risk and benefits were discussed. All questions were answered to patient's satisfaction. Consent form was signed. Description of Procedure: Patient was brought the op room placed in the supine position administered general inhalational anesthesia delivered by the department of anesthesiology. Patient's intravenous antibiotic program was continued. The patient's left foot was sterilely prepped and draped in the usual manner. Skin incision was made on the dorsum of the left foot and carried both medially and laterally. Reasonable bleeding was encountered. This was controlled with electrocautery. The dissection was then carried down to the level of the transmetatarsal area across all 5 digits. The incision was then carried laterally and then posteriorly and then medially. Once again hemostasis was achieved using electrocautery. The soft tissues anterior to the bone was mobilized and utilizing a power saw all 5 digits were amputated. Malodor was encountered and the tissues of origin of this malodor was cultured. No kale pus was ever identified although there was some dusky tissue. The wound was debrided back to healthy appearing tissue throughout. The wound was then copiously irrigated with antibiotic containing solution. The posterior flap reach the anterior flap without undue tension. The wound was loosely approximated with 3-0 nylon suture placed vertical mattress form. Adaptic and Kerlix were applied over the wound. Patient tolerated the procedure well, awoke without apparent complication was transferred to the recovery area in satisfactory and stable condition.
[2024-10-04 15:02] VITALS: BMI 24.9
--- NOTE | 2024-10-04 15:53 | P.PN ---
Subjective Progress Note Date: 10/04/24 Principal diagnosis: Reason for follow-up is left diabetic foot infection and bacteremia Patient is a 74-year-old lady with a past medical history of significant for Diabetes Mellitus, Deep Vein Thrombosis (DVT), Eye Disorder, GERD/Reflux, Hyperlipidemia, Hypertension, Prostate Disorder history of diabetic foot infection requiring amputation current smoker presenting to the hospital for evaluation of left foot toe discoloration. Patient is status post transmetatarsal amputation of the left foot completed on 10/04/2024. On today's evaluation that is 10/04/2024, the patient did have resolution of his fever and is afebrile today, the patient is on room air and breathing comfortably, the Pt denies having any chest pain or cough, the patient denies having any abdominal pain no vomiting or any diarrhea, pain to the left foot is currently controlled. Patient white count is 15.88 creatinine 0.9 blood culture positive with MSSA Objective - Vital Signs Vital signs: Vital Signs Temp 97.2 F L 10/04/24 11:31 Pulse 89 10/04/24 11:31 Resp 16 10/04/24 11:31 BP 132/63 10/04/24 11:31 Pulse Ox 100 10/04/24 11:31 FiO2 Intake & Output 10/03/24 10/04/24 10/04/24 18:59 06:59 18:59 Intake Total 500 Output Total 1225 400 Balance -725 -400 Weight 85.729 kg 85.729 kg Intake: Oral 500 Output: Urine 1225 400 Other: # Voids 2 - Exam GENERAL DESCRIPTION: An elderly male lying in bed in no distress RESPIRATORY SYSTEM: Unlabored breathing , decreased breath sounds at bases HEART: S1 S2 regular rate and rhythm , ABDOMEN: Soft , no tenderness EXTREMITIES: Left foot is currently dressed - Labs CBC & Chem 7: 10/04/24 05:44 10/04/24 05:44 Labs: Abnormal Lab Results - Last 24 Hours (Table) 10/03/24 10/03/24 10/03/24 Range/Units 10:26 10:26 17:56 WBC (4.50-10.00) X 10*3/uL RBC (4.40-5.60) X 10*6/uL Hgb (13.0-17.0) g/dL Hct (39.6-50.0) % MPV (9.5-12.2) FL Immature Gran # (0.00-0.04) X 10*3/uL Neutrophils # (1.80-7.70) X 10*3/uL Lymphocytes # (0.90-5.00) X 10*3/uL Monocytes # (0.20-1.00) X 10*3/uL Eosinophils # (0.04-0.35) X 10*3/uL ESR 79 H (0-20) mm/Hr Carbon Dioxide (21.6-31.8) mmol/L POC Glucose (mg/dL) 118 H (70-110) mg/dL Hemoglobin A1c (<=6.0) % Calcium (8.7-10.3) mg/dL Iron (65-175) UG/DL TIBC (228-460) UG/DL % Saturation (15.00-50.00) Transferrin (204.0-354.0) mg/dL Ferritin (22.0-322.0) ng/mL Total Bilirubin (0.3-1.2) mg/dL AST (14-35) U/L ALT (10-49) U/L C-Reactive Protein 31.4 H (<1.0) mg/dL Total Protein (6.2-8.2) g/dL Albumin (3.8-4.9) g/dL Albumin/Globulin Ratio (1.60-3.17) Ratio 10/03/24 10/03/24 10/04/24 Range/Units 20:11 21:21 05:44 WBC (4.50-10.00) X 10*3/uL RBC (4.40-5.60) X 10*6/uL Hgb (13.0-17.0) g/dL Hct (39.6-50.0) % MPV (9.5-12.2) FL Immature Gran # (0.00-0.04) X 10*3/uL Neutrophils # (1.80-7.70) X 10*3/uL Lymphocytes # (0.90-5.00) X 10*3/uL Monocytes # (0.20-1.00) X 10*3/uL Eosinophils # (0.04-0.35) X 10*3/uL ESR (0-20) mm/Hr Carbon Dioxide (21.6-31.8) mmol/L POC Glucose (mg/dL) 171 H 184 H (70-110) mg/dL Hemoglobin A1c 8.6 H (<=6.0) % Calcium (8.7-10.3) mg/dL Iron (65-175) UG/DL TIBC (228-460) UG/DL % Saturation (15.00-50.00) Transferrin (204.0-354.0) mg/dL Ferritin (22.0-322.0) ng/mL Total Bilirubin (0.3-1.2) mg/dL AST (14-35) U/L ALT (10-49) U/L C-Reactive Protein (<1.0) mg/dL Total Protein (6.2-8.2) g/dL Albumin (3.8-4.9) g/dL Albumin/Globulin Ratio (1.60-3.17) Ratio 10/04/24 10/04/24 10/04/24 Range/Units 05:44 05:44 05:44 WBC 15.88 H (4.50-10.00) X 10*3/uL RBC 3.30 L (4.40-5.60) X 10*6/uL Hgb 9.8 L (13.0-17.0) g/dL Hct 29.0 L (39.6-50.0) % MPV 9.4 L (9.5-12.2) FL Immature Gran # 0.20 H (0.00-0.04) X 10*3/uL Neutrophils # 13.55 H (1.80-7.70) X 10*3/uL Lymphocytes # 0.89 L (0.90-5.00) X 10*3/uL Monocytes # 1.16 H (0.20-1.00) X 10*3/uL Eosinophils # 0.03 L (0.04-0.35) X 10*3/uL ESR (0-20) mm/Hr Carbon Dioxide 20.3 L (21.6-31.8) mmol/L POC Glucose (mg/dL) (70-110) mg/dL Hemoglobin A1c (<=6.0) % Calcium 8.0 L (8.7-10.3) mg/dL Iron (65-175) UG/DL TIBC (228-460) UG/DL % Saturation (15.00-50.00) Transferrin 107.0 L (204.0-354.0) mg/dL Ferritin (22.0-322.0) ng/mL Total Bilirubin <0.2 L (0.3-1.2) mg/dL AST 13 L (14-35) U/L ALT 6 L (10-49) U/L C-Reactive Protein (<1.0) mg/dL Total Protein 5.5 L (6.2-8.2) g/dL Albumin 2.6 L (3.8-4.9) g/dL Albumin/Globulin Ratio 0.90 L (1.60-3.17) Ratio 10/04/24 10/04/24 Range/Units 05:44 06:27 WBC (4.50-10.00) X 10*3/uL RBC (4.40-5.60) X 10*6/uL Hgb (13.0-17.0) g/dL Hct (39.6-50.0) % MPV (9.5-12.2) FL Immature Gran # (0.00-0.04) X 10*3/uL Neutrophils # (1.80-7.70) X 10*3/uL Lymphocytes # (0.90-5.00) X 10*3/uL Monocytes # (0.20-1.00) X 10*3/uL Eosinophils # (0.04-0.35) X 10*3/uL ESR (0-20) mm/Hr Carbon Dioxide (21.6-31.8) mmol/L POC Glucose (mg/dL) 147 H (70-110) mg/dL Hemoglobin A1c (<=6.0) % Calcium (8.7-10.3) mg/dL Iron 9 L (65-175) UG/DL TIBC 148 L (228-460) UG/DL % Saturation 6.08 L (15.00-50.00) Transferrin 106.0 L (204.0-354.0) mg/dL Ferritin 338.0 H (22.0-322.0) ng/mL Total Bilirubin (0.3-1.2) mg/dL AST (14-35) U/L ALT (10-49) U/L C-Reactive Protein (<1.0) mg/dL Total Protein (6.2-8.2) g/dL Albumin (3.8-4.9) g/dL Albumin/Globulin Ratio (1.60-3.17) Ratio Microbiology - Last 24 Hours (Table) 10/03/24 10:28 Gram Stain - Preliminary Toe - Left Fourth Wound Culture - Preliminary Presumptive Staph aureus 10/03/24 10:28 Blood Culture Gram Stain - Preliminary Blood Blood Culture - Preliminary Molecular ID Assessment and Plan (1) Sepsis Current Visit: Yes Status: Acute Code(s): A41.9 - SEPSIS, UNSPECIFIED ORGANISM SNOMED Code(s): 28522755 (2) Diabetic foot infection Current Visit: Yes Status: Acute Code(s): E11.628 - TYPE 2 DIABETES MELLITUS WITH OTHER SKIN COMPLICATIONS; L08.9 - LOCAL INFECTION OF THE SKIN AND SUBCUTANEOUS TISSUE, UNSP SNOMED Code(s): 530324634 (3) Gangrene of toe of left foot Current Visit: Yes Status: Acute Code(s): I96 - GANGRENE, NOT ELSEWHERE CLASSIFIED SNOMED Code(s): 39413882477821864 (4) Osteomyelitis Current Visit: No Status: Acute Code(s): M86.9 - OSTEOMYELITIS, UNSPECIFIED SNOMED Code(s): 76179181 (5) MSSA bacteremia Current Visit: Yes Status: Acute Code(s): R78.81 - BACTEREMIA; B95.61 - METHICILLIN SUSCEP STAPH INFCT CAUSING DIS CLASSD ELSWHR SNOMED Code(s): 950483186 Plan: 1patient [facility] hospital with sepsis in this patient who did have a fever tachycardia elevated white committee criteria for SIRS source is left diabetic foot infection with gangrene of the fourth toe and will need to cover for the polymicrobial blanca associated with diabetic foot infection in this patient who did have previous history of MRSA as well as stenotrophomonas 2-patient with multiple antibiotic ALLERGIES that would limit the number of antibiotic safe to use 3-patient is status post left transmetatarsal amputation completed on 10/04/2024 Forpatient clinical course complicated by development of bacteremia secondary to Staph aureus antibiotic adjusted to cefazolin blood cultures will be repeated document clearance of his bacteremia as he will need a PICC line and outpatient IV antibiotics Dictation was produced using [employer] software. please excuse any grammatical, word or spelling errors. Time with Patient: Less than 30
[2024-10-04 16:25] LABS: Glucose,Whole Blood 108 mg/dL (70-110)
[2024-10-04 20:38] LABS: Glucose,Whole Blood 252 mg/dL (70-110)
[2024-10-04] MEDS: HYDROmorphone 2 MG/ML 1 ML SYRINGE IVP PRN (23:49)
[2024-10-05] MEDS ORDERED: HYDROmorphone 2 MG TAB PO PRN ×2 (01:56→18:27)
[2024-10-05] MEDS: HYDROmorphone 2 MG TAB PO PRN ×2 (02:47→17:54)
[2024-10-05] MEDS: MORPHINE SULFATE 4 MG/ML SYRINGE IVP PRN (05:40)
[2024-10-05 05:56] LABS: Basophils % (A) 0 %; Eosinophils % (A) 0 %; HCT 29.6 % (39.0-53.0); Lymphocytes # (A) 0.6 k/uL (1.0-4.8); Lymphocytes % (A) 3 %; MCH 28.8 pg (25.0-35.0); MCHC 32.8 g/dL (31.0-37.0); MCV 87.7 fL (80.0-100.0); Mean Platelet Volume 6.9; Monocytes # (A) 0.7 k/uL (0-1.0); Monocytes % (A) 4 %; Neutrophils # (A) 18.9 k/uL (1.3-7.7); Neutrophils % (A) 93 %; Platelet Count 344 k/uL (150-450); RBC 3.38 m/uL (4.30-5.90); RDW 12.4 % (11.5-15.5); WBC 20.4 k/uL (3.8-10.6)
[2024-10-05 06:04] LABS: ALT 8 U/L (4-49); AST 13 U/L (17-59); African American GFR (CKD) >90 (>60 ml/min/1.73 sqM); Albumin 2.4 g/dL (3.5-5.0); Albumin/Globulin Ratio 0.9; Alkaline Phosphatase 66 U/L (38-126); Anion Gap 8 mmol/L; Blood Urea Nitrogen 22 mg/dL (9-20); Calcium 8.1 mg/dL (8.4-10.2); Carbon Dioxide 20 mmol/L (22-30); Chloride 105 mmol/L (98-107); Globulin 2.7 g/dL; Glucose 165 mg/dL (74-99); Non-African American GFR(CKD) 86 (>60 ml/min/1.73 sqM); Potassium 4.4 mmol/L (3.5-5.1); Sodium 133 mmol/L (137-145); Total Bilirubin 0.3 mg/dL (0.2-1.3); Total Protein 5.1 g/dL (6.3-8.2)
[2024-10-05 06:08] LABS: HGB 9.7 gm/dL (13.0-17.5)
[2024-10-05 06:12] LABS: Glucose,Whole Blood 212 mg/dL (70-110)
[2024-10-05] MEDS: FERROUS SULFATE 325 MG TAB PO SCH (08:55)
[2024-10-05] MEDS: MULTIVITAMINS, THERA 1 EACH TAB PO SCH (08:56)
[2024-10-05] MEDS: FOLIC ACID 1 MG TAB PO SCH (08:56)
[2024-10-05 11:55] LABS: Glucose,Whole Blood 276 mg/dL (70-110)
[2024-10-05] MEDS: cilostazoL 100 MG TAB PO SCH (13:21)
--- NOTE | 2024-10-05 13:37 | P.PN ---
Subjective Progress Note Date: 10/05/24 74-year-old male with PMH of [id number] diabetes mellitus, hypertension, hyperlipidemia, previous DVT approximately 20 years ago which was treated with heparin and BPH presented emergency room for concerns for a foot infection. States this has been bugging him for a few days and progressively w orsening, particularly with ambulation. He does have a history of infection in the first and second digit of the left foot, with previous culture positive for Pseudomonas as well as MRSA. He endorses some chills over that time. However denies any confirmed fevers, nausea, vomiting, changes in appetite. 10/04 - He is seen and examined at bedside this morning, now on the 4th floor. Overnight he had worsening pain, for which she received Dilaudid which she stated helped more than the morphine he had previously been receiving. He was also noted to have 686 cc of urine on his bladder scan, however did not want to have a khan catheter placed. He was noted to have some better urine production throughout the night and a repeat bladder scan was done early this morning which showed ~200 cc of urine. 10/05 - He is seen and examined at bedside this morning. He underwent transmetatarsal amputation of the left foot yesterday. He had no acute events overnight. Continues to endorse pain in his left calf area, especially when squeezed. Discussed with patient likely secondary to extensive peripheral artery disease, and symptoms are likely claudication. He had concern was a DVT, as it was similar to something it experience before. Previous duplex ultrasound showed no signs of DVT, D-dimer tested today showed to be 0.76. Initiate on cilostazol 100 mg twice daily for claudication-like pain. REVIEW OF SYSTEMS: Pertinent positives and negatives noted in HPI. Physical Exam: General: nontoxic, no distress, appears at stated age. Unkempt in appearance Derm: warm, dry, intact Head: atraumatic, normocephalic, symmetric Eyes: EOMI, anicteric sclera Mouth: no lip lesion, mucus membranes moist Cardiovascular: S1 S2 reg, no murmur, rubs, or gallops Lungs: CTA bilateral, no rales, no accessory muscle use; diminished bilaterally Abdominal: soft, non-tender to palpataion, no appreciable organomegaly Extremities: no gross muscle atrophy, no edema, no contractures; tenderness to palpation from below the left knee to the toes; first and second toe on left foot amputated, gangrenous appearing fourth digit of the left foot with foul odor. Difficulty palpating pedal pulses bilaterally. Claudication-like pain in the left lower extremity. Neuro: Alert, Oriented, CNII-XII grossly intact, gait normal Psych: appropriate affect Data Received Today: Labs: WBCs 20.4, hemoglobin 9.7, hematocrit 29.6, platelet 344; sodium 133, potassium 4.4, bicarb 20, BUN 22, creatinine 0.84, calcium 8.1 Imagining: No new imaging today Assessment and plan 74-year-old male with PMH of [id number] diabetes mellitus, hypertension, hyperlipidemia, previous DVT proximately 20 years ago treated with heparin, multiple previous foot infections with history of Pseudomonas and MRSA and BPH presented emergency room for concerns for a foot infection. #Sepsis, likely secondary to diabetic foot disease and osteomyelitis of the left foot #Left foot, fourth digit gangrene #Left foot cellulitis -History of MRSA and Pseudomonas infection -Per ID, cefepime and vancomycin discontinued; -Per ID, antibiotic switched to cefazolin 2 g every 8 hours; continue on Flagyl 500 mg every 8 hours -CTA left lower extremity showed evidence of osteomyelitis at the 4th digit of the left foot -2 L LR bolus given yesterday; maintained on LR at 130 cc/h -CRP found to be 31.4 and ESR 79 -Blood culture preliminarily showing gram-positive cocci in clusters, possible MRSA infection -Underwent transmetatarsal amputation of the left foot yesterday (10/04/2024) -ID following #History of DVT, not currently on anticoagulation #Atherosclerotic disease lower extremities, with symptoms of claudication -Endorses left lower extremity tenderness to palpation -Bilateral duplex venous ultrasound of the left lower extremity showed no evidence of DVT -Resume home aspirin 81 mg daily, and Lipitor 80 mg daily -Underwent transmetatarsal amputation of the left foot yesterday (10/04/2024) -Initiated cilostazol 100 mg twice daily - D-dimer 0.76 #Itl-yybglhs-mppotxksp type 2 diabetes mellitus -Accu-Cheks ACHS -Sliding scale initiated -Hemoglobin A1c 8.6 -Monitor for hypoglycemia #Anemia of chronic disease, likely mixed micro and macrocytic with evidence of i eamon deficiency -Continue monitor CBC -Iron studies: Iron 9, TIBC 148, 6.08% saturation, transferrin 106, ferritin 338, reticulocyte count 0.99 -Initiate on ferrous sulfate 325 mg daily, multivitamin and folic acid -Vitamin B12 and folate ordered, currently pending #Hypovolemic hyponatremia, improved -Sodium 133 -Continue with LR at 130 cc/h -Monitor BMP #Hypertension -Hold home Cozaar to maintain permissive hypertension in the setting of sepsis #Hyperlipidemia -Continue home Lipitor 80 mg daily #BPH -Continue home Flomax 0.8 mg nightly GI prophylaxis: Protonix 40 mg daily DVT prophylaxis: Heparin 5000 unit SQ every 12 hours Code status: Full code F: LR@130 cc/h E: Replete as needed N: N.p.o. after midnight A: Ambulatory at baseline Anticipated discharge place: Pending clinical course Anticipated discharge time: Pending clinical course Dictation was produced using [employer] dictation software. please excuse any grammatical, word or spelling errors. Siva Florentino MD PGY-1 IM I saw and evaluated the patient during the juarez and critical portions of this encounter, and discussed the case in detail with the resident author of this note, I agree with the Assessment and Plan, and my changes, if any, are highlighted in blue. Objective - Vital Signs Vital signs: Vital Signs Temp 97.6 F 10/05/24 01:32 Pulse 87 10/05/24 01:32 Resp 16 10/05/24 01:32 BP 116/64 10/05/24 01:32 Pulse Ox 94 L 10/05/24 01:32 FiO2 Intake & Output 10/04/24 10/05/24 10/05/24 18:59 06:59 18:59 Intake Total 400 Output Total 853 Balance -453 Weight 85.729 kg Intake: IV 400 Output: Urine 850 Estimated Blood Loss 3 Other: # Voids 3 - Labs CBC & Chem 7: 10/05/24 05:11 10/05/24 05:11 Labs: Abnormal Lab Results - Last 24 Hours (Table) 10/04/24 10/04/24 10/04/24 Range/Units 05:44 05:44 05:44 WBC 15.88 H (4.50-10.00) X 10*3/uL RBC 3.30 L (4.40-5.60) X 10*6/uL Hgb 9.8 L (13.0-17.0) g/dL Hct 29.0 L (39.6-50.0) % MPV 9.4 L (9.5-12.2) FL Immature Gran # 0.20 H (0.00-0.04) X 10*3/uL Neutrophils # 13.55 H (1.80-7.70) X 10*3/uL Lymphocytes # 0.89 L (0.90-5.00) X 10*3/uL Monocytes # 1.16 H (0.20-1.00) X 10*3/uL Eosinophils # 0.03 L (0.04-0.35) X 10*3/uL Sodium (137-145) mmol/L Carbon Dioxide (21.6-31.8) mmol/L BUN (9-20) mg/dL Glucose (74-99) mg/dL POC Glucose (mg/dL) (70-110) mg/dL Hemoglobin A1c 8.6 H (<=6.0) % Calcium (8.7-10.3) mg/dL Iron (65-175) UG/DL TIBC (228-460) UG/DL % Saturation (15.00-50.00) Transferrin 107.0 L (204.0-354.0) mg/dL Ferritin (22.0-322.0) ng/mL Total Bilirubin (0.3-1.2) mg/dL AST (14-35) U/L ALT (10-49) U/L Total Protein (6.2-8.2) g/dL Albumin (3.8-4.9) g/dL Albumin/Globulin Ratio (1.60-3.17) Ratio 10/04/24 10/04/24 10/04/24 Range/Units 05:44 05:44 20:38 WBC (4.50-10.00) X 10*3/uL RBC (4.40-5.60) X 10*6/uL Hgb (13.0-17.0) g/dL Hct (39.6-50.0) % MPV (9.5-12.2) FL Immature Gran # (0.00-0.04) X 10*3/uL Neutrophils # (1.80-7.70) X 10*3/uL Lymphocytes # (0.90-5.00) X 10*3/uL Monocytes # (0.20-1.00) X 10*3/uL Eosinophils # (0.04-0.35) X 10*3/uL Sodium (137-145) mmol/L Carbon Dioxide 20.3 L (21.6-31.8) mmol/L BUN (9-20) mg/dL Glucose (74-99) mg/dL POC Glucose (mg/dL) 252 H (70-110) mg/dL Hemoglobin A1c (<=6.0) % Calcium 8.0 L (8.7-10.3) mg/dL Iron 9 L (65-175) UG/DL TIBC 148 L (228-460) UG/DL % Saturation 6.08 L (15.00-50.00) Transferrin 106.0 L (204.0-354.0) mg/dL Ferritin 338.0 H (22.0-322.0) ng/mL Total Bilirubin <0.2 L (0.3-1.2) mg/dL AST 13 L (14-35) U/L ALT 6 L (10-49) U/L Total Protein 5.5 L (6.2-8.2) g/dL Albumin 2.6 L (3.8-4.9) g/dL Albumin/Globulin Ratio 0.90 L (1.60-3.17) Ratio 10/05/24 10/05/24 10/05/24 Range/Units 05:11 05:11 06:12 WBC 20.4 H (4.50-10.00) X 10*3/uL RBC 3.38 L (4.40-5.60) X 10*6/uL Hgb 9.7 L D (13.0-17.0) g/dL Hct 29.6 L (39.6-50.0) % MPV (9.5-12.2) FL Immature Gran # (0.00-0.04) X 10*3/uL Neutrophils # 18.9 H (1.80-7.70) X 10*3/uL Lymphocytes # 0.6 L (0.90-5.00) X 10*3/uL Monocytes # (0.20-1.00) X 10*3/uL Eosinophils # (0.04-0.35) X 10*3/uL Sodium 133 L (137-145) mmol/L Carbon Dioxide 20 L (21.6-31.8) mmol/L BUN 22 H (9-20) mg/dL Glucose 165 H (74-99) mg/dL POC Glucose (mg/dL) 212 H (70-110) mg/dL Hemoglobin A1c (<=6.0) % Calcium 8.1 L (8.7-10.3) mg/dL Iron (65-175) UG/DL TIBC (228-460) UG/DL % Saturation (15.00-50.00) Transferrin (204.0-354.0) mg/dL Ferritin (22.0-322.0) ng/mL Total Bilirubin (0.3-1.2) mg/dL AST 13 L (14-35) U/L ALT (10-49) U/L Total Protein 5.1 L (6.2-8.2) g/dL Albumin 2.4 L (3.8-4.9) g/dL Albumin/Globulin Ratio (1.60-3.17) Ratio Microbiology - Last 24 Hours (Table) 10/03/24 10:28 Gram Stain - Preliminary Toe - Left Fourth Wound Culture - Preliminary Presumptive Staph aureus 10/03/24 10:28 Blood Culture Gram Stain - Preliminary Blood Blood Culture - Preliminary Molecular ID
--- NOTE | 2024-10-05 14:52 | P.PN ---
Subjective Progress Note Date: 10/05/24 Principal diagnosis: Reason for follow-up is left diabetic foot infection and bacteremia Patient is a 74-year-old lady with a past medical history of significant for Diabetes Mellitus, Deep Vein Thrombosis (DVT), Eye Disorder, GERD/Reflux, Hyperlipidemia, Hypertension, Prostate Disorder history of diabetic foot infection requiring amputation current smoker presenting to the hospital for evaluation of left foot toe discoloration. Patient is status post transmetatarsal amputation of the left foot completed on 10/04/2024. On today's evaluation that is 10/05/2024, patient did not have any fever and denies any chills, patient is breathing comfortably on room air, patient with no chest pain or cough patient did not have any abdominal pain nausea vomiting or any loose stools has been complaining of pain mostly to the left lower leg and not specifically the foot. Patient white count is 20.4, creatinine 0.84 culture with MSSA Objective - Vital Signs Vital signs: Vital Signs Temp 98.7 F 10/05/24 07:34 Pulse 92 10/05/24 07:34 Resp 18 10/05/24 07:34 BP 127/67 10/05/24 07:34 Pulse Ox 94 L 10/05/24 07:34 FiO2 Intake & Output 10/04/24 10/05/24 10/05/24 18:59 06:59 18:59 Intake Total 400 Output Total 853 400 Balance -453 -400 Weight 85.729 kg Intake: IV 400 Output: Urine 850 400 Estimated Blood Loss 3 Other: # Voids 3 - Exam GENERAL DESCRIPTION: An elderly male lying in bed in no distress RESPIRATORY SYSTEM: Unlabored breathing , decreased breath sounds at bases HEART: S1 S2 regular rate and rhythm , ABDOMEN: Soft , no tenderness EXTREMITIES: Left foot is currently dressed - Labs CBC & Chem 7: 10/05/24 05:11 10/05/24 05:11 Labs: Abnormal Lab Results - Last 24 Hours (Table) 10/04/24 10/05/24 10/05/24 Range/Units 20:38 05:11 05:11 WBC 20.4 H (3.8-10.6) k/uL RBC 3.38 L (4.30-5.90) m/uL Hgb 9.7 L D (13.0-17.5) gm/dL Hct 29.6 L (39.0-53.0) % Neutrophils # 18.9 H (1.3-7.7) k/uL Lymphocytes # 0.6 L (1.0-4.8) k/uL D-Dimer (<0.60) mg/L FEU Sodium 133 L (137-145) mmol/L Carbon Dioxide 20 L (22-30) mmol/L BUN 22 H (9-20) mg/dL Glucose 165 H (74-99) mg/dL POC Glucose (mg/dL) 252 H (70-110) mg/dL Calcium 8.1 L (8.4-10.2) mg/dL AST 13 L (17-59) U/L Total Protein 5.1 L (6.3-8.2) g/dL Albumin 2.4 L (3.5-5.0) g/dL 10/05/24 10/05/24 10/05/24 Range/Units 06:12 10:27 11:53 WBC (3.8-10.6) k/uL RBC (4.30-5.90) m/uL Hgb (13.0-17.5) gm/dL Hct (39.0-53.0) % Neutrophils # (1.3-7.7) k/uL Lymphocytes # (1.0-4.8) k/uL D-Dimer 0.76 H (<0.60) mg/L FEU Sodium (137-145) mmol/L Carbon Dioxide (22-30) mmol/L BUN (9-20) mg/dL Glucose (74-99) mg/dL POC Glucose (mg/dL) 212 H 276 H (70-110) mg/dL Calcium (8.4-10.2) mg/dL AST (17-59) U/L Total Protein (6.3-8.2) g/dL Albumin (3.5-5.0) g/dL Microbiology - Last 24 Hours (Table) 10/03/24 10:28 Gram Stain - Final Toe - Left Fourth Wound Culture - Final Staphylococcus aureus 10/03/24 10:28 Blood Culture Gram Stain - Preliminary Blood Blood Culture - Preliminary Presumptive Staph aureus Molecular ID Assessment and Plan (1) Sepsis Current Visit: Yes Status: Acute Code(s): A41.9 - SEPSIS, UNSPECIFIED ORGANISM SNOMED Code(s): 19145153 (2) Diabetic foot infection Current Visit: Yes Status: Acute Code(s): E11.628 - TYPE 2 DIABETES MELLITUS WITH OTHER SKIN COMPLICATIONS; L08.9 - LOCAL INFECTION OF THE SKIN AND SUBCUTANEOUS TISSUE, UNSP SNOMED Code(s): 417403808 (3) Gangrene of toe of left foot Current Visit: Yes Status: Acute Code(s): I96 - GANGRENE, NOT ELSEWHERE CLASSIFIED SNOMED Code(s): 46453650806846877 (4) Osteomyelitis Current Visit: No Status: Acute Code(s): M86.9 - OSTEOMYELITIS, UNSPECIFIED SNOMED Code(s): 78940028 (5) MSSA bacteremia Current Visit: Yes Status: Acute Code(s): R78.81 - BACTEREMIA; B95.61 - METHICILLIN SUSCEP STAPH INFCT CAUSING DIS CLASSD ELSWHR SNOMED Code(s): 148327138 Plan: 1patient [facility] hospital with sepsis in this patient who did have a fever tachycardia elevated white committee criteria for SIRS source is left diabetic foot infection with gangrene of the fourth toe and will need to cover for the polymicrobial blanca associated with diabetic foot infection in this patient who did have previous history of MRSA as well as stenotrophomonas 2-patient with multiple antibiotic ALLERGIES that would limit the number of antibiotic safe to use 3-patient is status post left transmetatarsal amputation completed on 10/04/2024 4patient with MSSA bacteremia sourse is left diabetic foot infection, blood culture has been repeated 5white count is slightly up and need to be monitored closely for now continue cefazolin and Flagyl Dictation was produced using [employer] dictation software. please excuse any grammatical, word or spelling errors. Time with Patient: Less than 30
[2024-10-05 16:44] LABS: Glucose,Whole Blood 198 mg/dL (70-110)
[2024-10-05] MEDS ORDERED: HYDROcodone/APAP 10-325MG 1 EACH TAB PO PRN (18:26)
[2024-10-05] MEDS: HYDROcodone/APAP 5-325MG 1 EACH TAB PO PRN (19:30)
[2024-10-05] MEDS: LIDOCAINE 4% PATCH TOPICAL SCH (19:31)
--- NOTE | 2024-10-05 20:24 | US ---
EXAMINATION TYPE: US venous doppler duplex LE LT DATE OF EXAM: 10/05/2024 7:51 PM COMPARISON: NONE CLINICAL INDICATION: Male, 74 years old with history of lower leg, r/o DVT (acute vs chronic); Pain, Pain TECHNIQUE: The lower extremity deep venous system is examined utilizing real time linear array sonog lacey with graded compression, color doppler sonography, and spectral doppler. SIDE PERFORMED: Left FINDINGS: VESSELS IMAGED: Common Femoral Vein Deep Femoral Vein Greater Saphenous Vein * Femoral Vein Popliteal Vein Small Saphenous Vein * Proximal Calf Veins (* superficial vessels) Left Leg: Negative for DVT, Color Doppler imaging shows patency of the vessels. Spectral waveforms a re within normal limits. IMPRESSION: 1. Left lower extremity ultrasound negative for deep venous thrombosis. [facility], , 10/05/2024 8:21 PM
[2024-10-05 20:36] LABS: Glucose,Whole Blood 311 mg/dL (70-110)
[2024-10-05] MEDS: GABAPENTIN 300 MG CAP PO SCH (20:52)
[2024-10-05] MEDS ORDERED: GABAPENTIN 300 MG CAP PO SCH (21:00)
[2024-10-06 04:40] LABS: Basophils # (A) 0.1 k/uL (0-0.2); Basophils % (A) 0 %; Eosinophils # (A) 0.1 k/uL (0-0.7); Eosinophils % (A) 1 %; HCT 29.3 % (39.0-53.0); HGB 9.4 gm/dL (13.0-17.5); Lymphocytes # (A) 0.8 k/uL (1.0-4.8); Lymphocytes % (A) 6 %; MCH 28.7 pg (25.0-35.0); MCHC 32.1 g/dL (31.0-37.0); MCV 89.4 fL (80.0-100.0); Mean Platelet Volume 7.7; Monocytes # (A) 0.6 k/uL (0-1.0); Monocytes % (A) 4 %; Neutrophils # (A) 12.8 k/uL (1.3-7.7); Neutrophils % (A) 88 %; Platelet Count 340 k/uL (150-450); RBC 3.28 m/uL (4.30-5.90); RDW 12.7 % (11.5-15.5); WBC 14.6 k/uL (3.8-10.6)
[2024-10-06 04:54] LABS: African American GFR (CKD) >90 (>60 ml/min/1.73 sqM); Anion Gap 7 mmol/L; Blood Urea Nitrogen 18 mg/dL (9-20); Calcium 8.1 mg/dL (8.4-10.2); Carbon Dioxide 25 mmol/L (22-30); Chloride 102 mmol/L (98-107); Glucose 166 mg/dL (74-99); Non-African American GFR(CKD) 82 (>60 ml/min/1.73 sqM); Non-African American GFR(CKD) 83 (>60 ml/min/1.73 sqM); Sodium 134 mmol/L (137-145)
[2024-10-06] MEDS: HYDROmorphone 2 MG TAB PO PRN (04:54)
[2024-10-06 06:16] LABS: Glucose,Whole Blood 185 mg/dL (70-110)
[2024-10-06 12:00] LABS: Glucose,Whole Blood 229 mg/dL (70-110)
--- NOTE | 2024-10-06 13:23 | P.PN ---
Subjective Progress Note Date: 10/06/24 Principal diagnosis: Reason for follow-up is left diabetic foot infection and bacteremia Patient is a 74-year-old lady with a past medical history of significant for Diabetes Mellitus, Deep Vein Thrombosis (DVT), Eye Disorder, GERD/Reflux, Hyperlipidemia, Hypertension, Prostate Disorder history of diabetic foot infection requiring amputation current smoker presenting to the hospital for evaluation of left foot toe discoloration. Patient is status post transmetatarsal amputation of the left foot completed on 10/04/2024. On today's evaluation that is 10/06/2024, Patient is afebrile patient is currently on room air and denies having any shortness of breath, the patient denies any chest pain or cough, the patient denies any nausea vomiting did not have any abdominal pain and no diarrhea has been complaining of more pain to the left lower extremity and wants more pain medication. The patient white count is 14.6 creatinine 0.91 Objective - Vital Signs Vital signs: Vital Signs Temp 97.9 F 10/06/24 07:37 Pulse 90 10/06/24 07:37 Resp 18 10/06/24 07:37 BP 112/58 10/06/24 07:37 Pulse Ox 95 10/06/24 07:37 FiO2 Intake & Output 10/05/24 10/06/24 10/06/24 18:59 06:59 18:59 Intake Total 500 Output Total 1050 1300 500 Balance -1050 -800 -500 Intake: Oral 500 Output: Urine 1050 1300 500 Other: # Voids 3 - Exam GENERAL DESCRIPTION: An elderly male lying in bed in no distress RESPIRATORY SYSTEM: Unlabored breathing , decreased breath sounds at bases HEART: S1 S2 regular rate and rhythm , ABDOMEN: Soft , no tenderness EXTREMITIES: Left foot is currently dressed - Labs CBC & Chem 7: 10/06/24 03:53 10/06/24 03:53 Labs: Abnormal Lab Results - Last 24 Hours (Table) 10/05/24 10/05/24 10/05/24 Range/Units 11:53 16:42 20:34 WBC (3.8-10.6) k/uL RBC (4.30-5.90) m/uL Hgb (13.0-17.5) gm/dL Hct (39.0-53.0) % Neutrophils # (1.3-7.7) k/uL Lymphocytes # (1.0-4.8) k/uL Sodium (137-145) mmol/L Glucose (74-99) mg/dL POC Glucose (mg/dL) 276 H 198 H 311 H (70-110) mg/dL Calcium (8.4-10.2) mg/dL 10/06/24 10/06/24 10/06/24 Range/Units 03:53 03:53 06:13 WBC 14.6 H (3.8-10.6) k/uL RBC 3.28 L (4.30-5.90) m/uL Hgb 9.4 L (13.0-17.5) gm/dL Hct 29.3 L (39.0-53.0) % Neutrophils # 12.8 H (1.3-7.7) k/uL Lymphocytes # 0.8 L (1.0-4.8) k/uL Sodium 134 L (137-145) mmol/L Glucose 166 H (74-99) mg/dL POC Glucose (mg/dL) 185 H (70-110) mg/dL Calcium 8.1 L (8.4-10.2) mg/dL Microbiology - Last 24 Hours (Table) 10/03/24 10:28 Blood Culture Gram Stain - Final Blood Blood Culture - Final Staphylococcus aureus Molecular ID 10/04/24 14:30 Gram Stain - Preliminary Foot - Left Wound Culture - Preliminary 10/03/24 10:28 Gram Stain - Final Toe - Left Fourth Wound Culture - Final Staphylococcus aureus Assessment and Plan (1) Sepsis Current Visit: Yes Status: Acute Code(s): A41.9 - SEPSIS, UNSPECIFIED ORGANISM SNOMED Code(s): 43214765 (2) Diabetic foot infection Current Visit: Yes Status: Acute Code(s): E11.628 - TYPE 2 DIABETES MELLITUS WITH OTHER SKIN COMPLICATIONS; L08.9 - LOCAL INFECTION OF THE SKIN AND SUBCUTANEOUS TISSUE, UNSP SNOMED Code(s): 372323080 (3) Gangrene of toe of left foot Current Visit: Yes Status: Acute Code(s): I96 - GANGRENE, NOT ELSEWHERE CLASSIFIED SNOMED Code(s): 45643549671825095 (4) Osteomyelitis Current Visit: No Status: Acute Code(s): M86.9 - OSTEOMYELITIS, UNSPECIFIED SNOMED Code(s): 77841594 (5) MSSA bacteremia Current Visit: Yes Status: Acute Code(s): R78.81 - BACTEREMIA; B95.61 - METHICILLIN SUSCEP STAPH INFCT CAUSING DIS CLASSD ELSWHR SNOMED Code(s): 398556048 Plan: 1patient presented hospital with sepsis in this patient who did have a fever tachycardia elevated white committee criteria for SIRS source is left diabetic foot infection with gangrene of the fourth toe and will need to cover for the polymicrobial blanca associated with diabetic foot infection in this patient who did have previous history of MRSA as well as stenotrophomonas 2-patient with multiple antibiotic ALLERGIES that would limit the number of antibiotic safe to use 3-patient is status post left transmetatarsal amputation completed on 10/04/2024 4patient with MSSA bacteremia sourse is left diabetic foot infection, blood culture has been repeated to document clearance of his bacteremia 5patient white count is trending down we will continue the patient cefazolin and Flagyl once he clear his bacteremia to get a midline for outpatient antibiotic Dictation was produced using [employer] dictation software. please excuse any grammatical, word or spelling errors. Time with Patient: Less than 30
[2024-10-06] MEDS ORDERED: HYDROcodone/APAP 7.5-325MG 1 EACH TAB PO PRN (14:01)
--- NOTE | 2024-10-06 14:12 | P.PN ---
Subjective Progress Note Date: 10/06/24 Principal diagnosis: left foot gangrene patient seen and examined. Complaining of pain at the left calf and TMA site. Currently on Howe 5/325 and Dilaudid without improvement. Started on Gabapentin yesterday as well. No complaints of fevers, chills, chest pain or shortness of breath. Objective - Vital Signs Vital signs: Vital Signs Temp 97.9 F 10/06/24 07:37 Pulse 90 10/06/24 07:37 Resp 18 10/06/24 07:37 BP 112/58 10/06/24 07:37 Pulse Ox 95 10/06/24 07:37 FiO2 Intake & Output 10/05/24 10/06/24 10/06/24 18:59 06:59 18:59 Intake Total 500 Output Total 1050 1300 900 Balance -1050 -800 -900 Intake: Oral 500 Output: Urine 1050 1300 900 Other: # Voids 3 - Exam left TMA site clean, dry and intact. No drainage or bleeding. Echymosis noted at the plantar surface. - Labs CBC & Chem 7: 10/06/24 03:53 10/06/24 03:53 Labs: Abnormal Lab Results - Last 24 Hours (Table) 10/05/24 10/05/24 10/06/24 Range/Units 16:42 20:34 03:53 WBC 14.6 H (3.8-10.6) k/uL RBC 3.28 L (4.30-5.90) m/uL Hgb 9.4 L (13.0-17.5) gm/dL Hct 29.3 L (39.0-53.0) % Neutrophils # 12.8 H (1.3-7.7) k/uL Lymphocytes # 0.8 L (1.0-4.8) k/uL Sodium (137-145) mmol/L Glucose (74-99) mg/dL POC Glucose (mg/dL) 198 H 311 H (70-110) mg/dL Calcium (8.4-10.2) mg/dL 10/06/24 10/06/24 10/06/24 Range/Units 03:53 06:13 11:57 WBC (3.8-10.6) k/uL RBC (4.30-5.90) m/uL Hgb (13.0-17.5) gm/dL Hct (39.0-53.0) % Neutrophils # (1.3-7.7) k/uL Lymphocytes # (1.0-4.8) k/uL Sodium 134 L (137-145) mmol/L Glucose 166 H (74-99) mg/dL POC Glucose (mg/dL) 185 H 229 H (70-110) mg/dL Calcium 8.1 L (8.4-10.2) mg/dL Microbiology - Last 24 Hours (Table) 10/03/24 10:28 Blood Culture Gram Stain - Final Blood Blood Culture - Final Staphylococcus aureus Molecular ID 10/04/24 14:30 Gram Stain - Preliminary Foot - Left Wound Culture - Preliminary 10/03/24 10:28 Gram Stain - Final Toe - Left Fourth Wound Culture - Final Staphylococcus aureus Assessment and Plan Assessment: Left foot gangrene Left foot cellulitis S/P left TMA PAD DM Type II Chronic tobacco abuse Plan: Changed Howe 5 to 7.5. Agree with Gabapentin Change dressings daily. Pain likely due to severe athersclerotic disease and stenosis of the SFA and tibial arteries. Will require angiogram with revascularization to the left leg. If patient agreeable then will perform Monday.
--- NOTE | 2024-10-06 14:32 | P.PN ---
Subjective Progress Note Date: 10/06/24 74-year-old male with PMH of [id number] diabetes mellitus, hypertension, hyperlipidemia, previous DVT approximately 20 years ago which was treated with heparin and BPH presented emergency room for concerns for a foot infection. States this has been bugging him for a few days and progressively w orsening, particularly with ambulation. He does have a history of infection in the first and second digit of the left foot, with previous culture positive for Pseudomonas as well as MRSA. He endorses some chills over that time. However denies any confirmed fevers, nausea, vomiting, changes in appetite. 10/04 - He is seen and examined at bedside this morning, now on the 4th floor. Overnight he had worsening pain, for which she received Dilaudid which she stated helped more than the morphine he had previously been receiving. He was also noted to have 686 cc of urine on his bladder scan, however did not want to have a khan catheter placed. He was noted to have some better urine production throughout the night and a repeat bladder scan was done early this morning which showed ~200 cc of urine. 10/05 - He is seen and examined at bedside this morning. He underwent transmetatarsal amputation of the left foot yesterday. He had no acute events overnight. Continues to endorse pain in his left calf area, especially when squeezed. Discussed with patient likely secondary to extensive peripheral artery disease, and symptoms are likely claudication. He had concern was a DVT, as it was similar to something it experience before. Previous duplex ultrasound showed no signs of DVT, D-dimer tested today showed to be 0.76. Initiate on cilostazol 100 mg twice daily for claudication-like pain. 10/06 - ongoing pain per pt, but appears comfortable on exam. pain medication adjusted yesterday with addition of gabapentin, lidocaine patch, increase of opiate medication REVIEW OF SYSTEMS: Pertinent positives and negatives noted in HPI. Physical Exam: General: nontoxic, no distress, appears at stated age. Unkempt in appearance Derm: warm, dry, intact Head: atraumatic, normocephalic, symmetric Eyes: EOMI, anicteric sclera Mouth: no lip lesion, mucus membranes moist Cardiovascular: S1 S2 reg, no murmur, rubs, or gallops Lungs: CTA bilateral, no rales, no accessory muscle use; diminished bilaterally Abdominal: soft, non-tender to palpataion, no appreciable organomegaly Extremities: no gross muscle atrophy, no edema, no contractures; tenderness to palpation from below the left knee to the toes; first and second toe on left foot amputated, gangrenous appearing fourth digit of the left foot with foul odor. Difficulty palpating pedal pulses bilaterally. Claudication-like pain in the left lower extremity. Neuro: Alert, Oriented, CNII-XII grossly intact, gait normal Psych: appropriate affect Data Received Today: Labs: WBCs 20.4, hemoglobin 9.7, hematocrit 29.6, platelet 344; sodium 133, potassium 4.4, bicarb 20, BUN 22, creatinine 0.84, calcium 8.1 Imagining: No new imaging today Assessment and plan 74-year-old male with PMH of [id number] diabetes mellitus, hypertension, hyperlipidemia, previous DVT proximately 20 years ago treated with heparin, multiple previous foot infections with history of Pseudomonas and MRSA and BPH presented emergency room for concerns for a foot infection. #Sepsis, likely secondary to diabetic foot disease and osteomyelitis of the left foot #Left foot, fourth digit gangrene #Left foot cellulitis -History of MRSA and Pseudomonas infection -Per ID, cefepime and vancomycin discontinued; -Per ID, antibiotic switched to cefazolin 2 g every 8 hours; continue on Flagyl 500 mg every 8 hours -CTA left lower extremity showed evidence of osteomyelitis at the 4th digit of the left foot -2 L LR bolus given yesterday; maintained on LR at 130 cc/h -CRP found to be 31.4 and ESR 79 -Blood culture preliminarily showing gram-positive cocci in clusters, possible MRSA infection -Underwent transmetatarsal amputation of the left foot (10/04/2024) -Vascular surgery following, plans for LLE revascularization -ID following #History of DVT, not currently on anticoagulation #Atherosclerotic disease lower extremities, with symptoms of claudication -Endorses left lower extremity tenderness to palpation -Bilateral duplex venous ultrasound of the left lower extremity showed no evidence of DVT -Resume home aspirin 81 mg daily, and Lipitor 80 mg daily -Underwent transmetatarsal amputation of the left foot yesterday (10/04/2024) - D-dimer 0.76 #Hts-crnblyn-enruynlwg type 2 diabetes mellitus -Accu-Cheks ACHS -Sliding scale initiated -Hemoglobin A1c 8.6 -Monitor for hypoglycemia #Anemia of chronic disease, likely mixed micro and macrocytic with evidence of iron deficiency -Continue monitor CBC -Iron studies: Iron 9, TIBC 148, 6.08% saturation, transferrin 106, ferritin 338, reticulocyte count 0.99 -Initiate on ferrous sulfate 325 mg daily, multivitamin and folic acid -Vitamin B12 and folate ordered, currently pending #Hypovolemic hyponatremia, improved -Sodium 133 -Continue with LR at 130 cc/h -Monitor BMP #Hypertension -Hold home Cozaar to maintain permissive hypertension in the setting of sepsis #Hyperlipidemia -Continue home Lipitor 80 mg daily #BPH -Continue home Flomax 0.8 mg nightly GI prophylaxis: Protonix 40 mg daily DVT prophylaxis: Heparin 5000 unit SQ every 12 hours Code status: Full code F: LR@130 cc/h E: Replete as needed N: N.p.o. after midnight A: Ambulatory at baseline Anticipated discharge place: Pending clinical course Anticipated discharge time: Pending clinical course Dictation was produced using [employer] dictation software. please excuse any grammatical, word or spelling errors. Objective - Vital Signs Vital signs: Vital Signs Temp 97.9 F 10/06/24 07:37 Pulse 90 10/06/24 07:37 Resp 18 10/06/24 07:37 BP 112/58 10/06/24 07:37 Pulse Ox 95 10/06/24 07:37 FiO2 Intake & Output 10/05/24 10/06/24 10/06/24 18:59 06:59 18:59 Intake Total 500 Output Total 1050 1300 900 Balance -1050 -800 -900 Intake: Oral 500 Output: Urine 1050 1300 900 Other: # Voids 3 - Labs CBC & Chem 7: 10/06/24 03:53 10/06/24 03:53 Labs: Abnormal Lab Results - Last 24 Hours (Table) 10/05/24 10/05/24 10/06/24 Range/Units 16:42 20:34 03:53 WBC 14.6 H (3.8-10.6) k/uL RBC 3.28 L (4.30-5.90) m/uL Hgb 9.4 L (13.0-17.5) gm/dL Hct 29.3 L (39.0-53.0) % Neutrophils # 12.8 H (1.3-7.7) k/uL Lymphocytes # 0.8 L (1.0-4.8) k/uL Sodium (137-145) mmol/L Glucose (74-99) mg/dL POC Glucose (mg/dL) 198 H 311 H (70-110) mg/dL Calcium (8.4-10.2) mg/dL 10/06/24 10/06/24 10/06/24 Range/Units 03:53 06:13 11:57 WBC (3.8-10.6) k/uL RBC (4.30-5.90) m/uL Hgb (13.0-17.5) gm/dL Hct (39.0-53.0) % Neutrophils # (1.3-7.7) k/uL Lymphocytes # (1.0-4.8) k/uL Sodium 134 L (137-145) mmol/L Glucose 166 H (74-99) mg/dL POC Glucose (mg/dL) 185 H 229 H (70-110) mg/dL Calcium 8.1 L (8.4-10.2) mg/dL Microbiology - Last 24 Hours (Table) 10/03/24 10:28 Blood Culture Gram Stain - Final Blood Blood Culture - Final Staphylococcus aureus Molecular ID 10/04/24 14:30 Gram Stain - Preliminary Foot - Left Wound Culture - Preliminary 10/03/24 10:28 Gram Stain - Final Toe - Left Fourth Wound Culture - Final Staphylococcus aureus
[2024-10-06 16:31] LABS: Glucose,Whole Blood 172 mg/dL (70-110)
[2024-10-06] MEDS: metroNIDAZOLE 500 MG TAB PO SCH (16:33)
[2024-10-06] MEDS: HYDROcodone/APAP 7.5-325MG 1 EACH TAB PO PRN (17:41)
[2024-10-06 20:54] LABS: Glucose,Whole Blood 154 mg/dL (70-110)
[2024-10-07 04:22] LABS: African American GFR (CKD) >90 (>60 ml/min/1.73 sqM); Anion Gap 5 mmol/L; Blood Urea Nitrogen 13 mg/dL (9-20); Calcium 8.1 mg/dL (8.4-10.2); Carbon Dioxide 27 mmol/L (22-30); Chloride 101 mmol/L (98-107); Glucose 99 mg/dL (74-99); Magnesium 1.7 mg/dL (1.6-2.3); Non-African American GFR(CKD) >90 (>60 ml/min/1.73 sqM); Potassium 4.1 mmol/L (3.5-5.1); Sodium 133 mmol/L (137-145)
[2024-10-07 06:18] LABS: Glucose,Whole Blood 94 mg/dL (70-110)
[2024-10-07 08:18] LABS: Basophils # (A) 0.07 X 10*3/uL (0.00-0.10); Basophils % (A) 0.5 %; Eosinophils # (A) 0.09 X 10*3/uL (0.04-0.35); Eosinophils % (A) 0.6 %; HCT 26.4 % (39.6-50.0); HGB 8.8 g/dL (13.0-17.0); Lymphocytes # (A) 0.97 X 10*3/uL (0.90-5.00); Lymphocytes % (A) 6.7 %; MCH 29.3 pg (27.0-32.0); MCHC 33.3 g/dL (32.0-37.0); Mean Platelet Volume 9.6 FL (9.5-12.2); Monocytes # (A) 0.94 X 10*3/uL (0.20-1.00); Monocytes % (A) 6.5 %; NRBC Per 100 WBC 0 X 10*3/uL (0.00-0.01); Neutrophils # (A) 11.91 X 10*3/uL (1.80-7.70); Neutrophils % (A) 82.4 %; Platelet Count 332 X 10*3/uL (140-440); RDW 12.4 % (11.5-14.5); WBC 14.45 X 10*3/uL (4.50-10.00)
[2024-10-07 11:21] LABS: Glucose,Whole Blood 157 mg/dL (70-110)
[2024-10-07] MEDS: HYDROmorphone 2 MG TAB PO PRN (11:38)
--- NOTE | 2024-10-07 11:44 | P.PN ---
Subjective Progress Note Date: 10/07/24 Principal diagnosis: Peripheral arterial disease, left gangrene toes Patient is seen and examined today as a follow-up. He is postop day #3 for left transmetatarsal amputation. Patient states he is not getting much pain relief and that he has pain down into his calf. He remains on IV antibiotics. He has been afebrile. Wound cultures positive for Staphylococcus aureus. Objective - Vital Signs Vital signs: Vital Signs Temp 98.4 F 10/07/24 07:42 Pulse 91 10/07/24 07:42 Resp 16 10/07/24 07:42 BP 141/57 10/07/24 07:42 Pulse Ox 93 L 10/07/24 07:42 FiO2 Intake & Output 10/06/24 10/07/24 10/07/24 18:59 06:59 18:59 Output Total 1900 200 Balance -1900 -200 Output: Urine 1900 200 Other: Voiding Method Urinal - Exam General appearance: The patient is alert, oriented, appears in no acute distress. HET: Head is normocephalic and atraumatic. Pupils are equal and reactive. Neck: Supple. Heart: Regular. Lungs: Equal expansion, normal respiratory effort. Abdomen: Soft, nondistended. Extremities: Lower extremities skin is dry, scaly and flaky. Left foot with dressing clean dry and intact. Calf tenderness with squeezing. Neurological: No focal deficits. Strength and sensation are grossly intact. - Labs CBC & Chem 7: 10/07/24 03:26 10/07/24 03:26 Labs: Abnormal Lab Results - Last 24 Hours (Table) 10/06/24 10/06/24 10/06/24 Range/Units 11:57 16:30 20:52 WBC (4.50-10.00) X 10*3/uL RBC (4.40-5.60) X 10*6/uL Hgb (13.0-17.0) g/dL Hct (39.6-50.0) % Immature Gran # (0.00-0.04) X 10*3/uL Neutrophils # (1.80-7.70) X 10*3/uL Sodium (137-145) mmol/L POC Glucose (mg/dL) 229 H 172 H 154 H (70-110) mg/dL Calcium (8.4-10.2) mg/dL 10/07/24 10/07/24 Range/Units 03:26 03:26 WBC 14.45 H (4.50-10.00) X 10*3/uL RBC 3.00 L (4.40-5.60) X 10*6/uL Hgb 8.8 L (13.0-17.0) g/dL Hct 26.4 L (39.6-50.0) % Immature Gran # 0.47 H (0.00-0.04) X 10*3/uL Neutrophils # 11.91 H (1.80-7.70) X 10*3/uL Sodium 133 L (137-145) mmol/L POC Glucose (mg/dL) (70-110) mg/dL Calcium 8.1 L (8.4-10.2) mg/dL Microbiology - Last 24 Hours (Table) 10/04/24 14:30 Anaerobic Culture - Preliminary Foot - Left 10/04/24 14:30 Gram Stain - Final Foot - Left Wound Culture - Final Staphylococcus aureus 10/03/24 10:28 Blood Culture Gram Stain - Final Blood Blood Culture - Final Staphylococcus aureus Molecular ID Assessment and Plan Assessment: 1. Left foot gangrene fourth toe status post transmetatarsal amputation 2. Left foot cellulitis 3. Arthrosclerotic disease of the lower extremities 4. Diabetes mellitus 5. Chronic tobacco use 6. History of previous gangrenous toes status post amputation first and second toe of the left foot 7. History of left lower extremity deep vein thrombosis Plan: 1. Consult to physical therapy, heel walk only left foot 2. Recommend postop shoe 3. Recommend lower extremity angiogram, patient agreeable. Will proceed tomorrow. 4. N.p.o. after midnight 5. Continue with pain management as ordered 6. Rest of medical management per primary medical team Thank you for this consultation, we will continue to follow along. The impression and plan of care has been dictated as directed. Dr. Avalos I performed a history and examination of this patient, discussed the same with the dictator. I agree with the dictator's note ,documented as a scribe. Any additional findings or plans will be noted.
--- NOTE | 2024-10-07 12:03 | P.PN ---
Subjective Progress Note Date: 10/07/24 74-year-old male with PMH of [id number] diabetes mellitus, hypertension, hyperlipidemia, previous DVT approximately 20 years ago which was treated with heparin and BPH presented emergency room for concerns for a foot infection. States this has been bugging him for a few days and progressively w orsening, particularly with ambulation. He does have a history of infection in the first and second digit of the left foot, with previous culture positive for Pseudomonas as well as MRSA. He endorses some chills over that time. However denies any confirmed fevers, nausea, vomiting, changes in appetite. 10/04 - He is seen and examined at bedside this morning, now on the 4th floor. Overnight he had worsening pain, for which she received Dilaudid which she stated helped more than the morphine he had previously been receiving. He was also noted to have 686 cc of urine on his bladder scan, however did not want to have a khan catheter placed. He was noted to have some better urine production throughout the night and a repeat bladder scan was done early this morning which showed ~200 cc of urine. 10/05 - He is seen and examined at bedside this morning. He underwent transmetatarsal amputation of the left foot yesterday. He had no acute events overnight. Continues to endorse pain in his left calf area, especially when squeezed. Discussed with patient likely secondary to extensive peripheral artery disease, and symptoms are likely claudication. He had concern was a DVT, as it was similar to something it experience before. Previous duplex ultrasound showed no signs of DVT, D-dimer tested today showed to be 0.76. Initiate on cilostazol 100 mg twice daily for claudication-like pain. 10/06 - ongoing pain per pt, but appears comfortable on exam. pain medication adjusted yesterday with addition of gabapentin, lidocaine patch, increase of opiate medication 10/07 - He is seen and examined at bedside this morning. Continues to complain of pain, while appearing to be comfortable on exam. Will undergo angiogram with revascularization with vascular surgery tomorrow morning. Has no acute complaints this morning, continues to tolerate diet well as well as no difficulties or changes in bowel movements and urinary function. REVIEW OF SYSTEMS: Pertinent positives and negatives noted in HPI. Physical Exam: General: nontoxic, no distress, appears at stated age. Unkempt in appearance Derm: warm, dry, intact Head: atraumatic, normocephalic, symmetric Eyes: EOMI, anicteric sclera Mouth: no lip lesion, mucus membranes moist Cardiovascular: S1 S2 reg, no murmur, rubs, or gallops Lungs: CTA bilateral, no rales, no accessory muscle use; diminished bilaterally Abdominal: soft, non-tender to palpataion, no appreciable organomegaly Extremities: no gross muscle atrophy, no edema, no contractures; tenderness to palpation from below the left knee to the toes; first and second toe on left foot amputated, gangrenous appearing fourth digit of the left foot with foul odor. Difficulty palpating pedal pulses bilaterally. Claudication-like pain in the left lower extremity. Neuro: Alert, Oriented, CNII-XII grossly intact, gait normal Psych: appropriate affect Data Received Today: Labs: WBCs 20.4, hemoglobin 9.7, hematocrit 29.6, platelet 344; sodium 133, potassium 4.4, bicarb 20, BUN 22, creatinine 0.84, calcium 8.1 Imagining: No new imaging today Assessment and plan 74-year-old male with PMH of tnu-skzdytm-oiyjhyyja diabetes mellitus, hypertension, hyperlipidemia, previous DVT proximately 20 years ago treated with heparin, multiple previous foot infections with history of Pseudomonas and MRSA and BPH presented emergency room for concerns for a foot infection. #History of DVT, not currently on anticoagulation #Atherosclerotic disease lower extremities, with symptoms of possible claudication v neuropathic pain -Endorses left lower extremity tenderness to palpation -Bilateral duplex venous ultrasound of the left lower extremity showed no evidence of DVT -Resume home aspirin 81 mg daily, and Lipitor 80 mg daily -Underwent transmetatarsal amputation of the left foot yesterday (10/04/2024) -Continue with gabapentin 100 mg 3 times daily -D-dimer 0.76 -Scheduled to undergo angiogram and revascularization of the left leg tomorrow (Monday10/08/24) #Sepsis, likely secondary to diabetic foot disease and osteomyelitis of the left foot #Left foot, fourth digit gangrene #Left foot cellulitis -History of MRSA and Pseudomonas infection -Continue with cefazolin 2 g every 8 hours; continue on Flagyl 500 mg every 8 hours -Tolerating oral intake well; LR at 130 cc/h discontinued -Blood culture final showed Staph aureus, repeat blood cultures are no growth to date -Underwent transmetatarsal amputation of the left foot (10/04/2024) -ID following #Qts-begrblx-tdwlrvrre type 2 diabetes mellitus -Accu-Cheks ACHS -Sliding scale initiated -Hemoglobin A1c 8.6 -Monitor for hypoglycemia #Anemia of chronic disease, likely mixed micro and macrocytic with evidence of iron deficiency -Continue monitor CBC -Iron studies: Iron 9, TIBC 148, 6.08% saturation, transferrin 106, ferritin 338, reticulocyte count 0.99 -Initiate on ferrous sulfate 325 mg daily, multivitamin and folic acid -Vitamin B12 and folate ordered, currently pending #Hypovolemic hyponatremia, improved -Sodium 133 -Monitor BMP #Hypertension -Hold home Cozaar to maintain permissive hypertension in the setting of sepsis #Hyperlipidemia -Continue home Lipitor 80 mg daily #BPH -Continue home Flomax 0.8 mg nightly GI prophylaxis: Protonix 40 mg daily DVT prophylaxis: Heparin 5000 unit SQ every 12 hours Code status: Full code F: None E: Replete as needed N: N.p.o. after midnight A: Ambulatory at baseline Anticipated discharge place: Pending clinical course Anticipated discharge time: Pending clinical course Dictation was produced using [employer] dictation software. please excuse any grammatical, word or spelling errors. Siva Florentino MD PGY-1 IM I saw and evaluated the patient during the juarez and critical portions of this encounter, and discussed the case in detail with the resident author of this note, I agree with the Assessment and Plan, and my changes, if any, are highlighted in blue. Objective - Vital Signs Vital signs: Vital Signs Temp 98.1 F 10/07/24 02:00 Pulse 95 10/07/24 02:00 Resp 18 10/06/24 20:45 BP 138/69 10/07/24 02:00 Pulse Ox 90 L 10/07/24 02:00 FiO2 Intake & Output 10/06/24 10/07/24 10/07/24 18:59 06:59 18:59 Output Total 1900 200 Balance -1900 -200 Output: Urine 1900 200 Other: Voiding Method Urinal - Labs CBC & Chem 7: 10/07/24 03:26 10/07/24 03:26 Labs: Abnormal Lab Results - Last 24 Hours (Table) 10/06/24 10/06/24 10/06/24 Range/Units 11:57 16:30 20:52 Sodium (137-145) mmol/L POC Glucose (mg/dL) 229 H 172 H 154 H (70-110) mg/dL Calcium (8.4-10.2) mg/dL 10/07/24 Range/Units 03:26 Sodium 133 L (137-145) mmol/L POC Glucose (mg/dL) (70-110) mg/dL Calcium 8.1 L (8.4-10.2) mg/dL Microbiology - Last 24 Hours (Table) 10/04/24 14:30 Anaerobic Culture - Preliminary Foot - Left 10/04/24 14:30 Gram Stain - Final Foot - Left Wound Culture - Final Staphylococcus aureus 10/03/24 10:28 Blood Culture Gram Stain - Final Blood Blood Culture - Final Staphylococcus aureus Molecular ID
--- NOTE | 2024-10-07 12:18 | P.PN ---
Subjective Progress Note Date: 10/07/24 Principal diagnosis: Reason for follow-up is left diabetic foot infection and bacteremia Patient is a 74-year-old lady with a past medical history of significant for Diabetes Mellitus, Deep Vein Thrombosis (DVT), Eye Disorder, GERD/Reflux, Hyperlipidemia, Hypertension, Prostate Disorder history of diabetic foot infection requiring amputation current smoker presenting to the hospital for evaluation of left foot toe discoloration. Patient is status post transmetatarsal amputation of the left foot completed on 10/04/2024. On today's evaluation that is 10/07/2024, patient has been afebrile, patient is breathing comfortably and is currently on room air, patient has been sleepy in no distress no acute changes reported by the nursing staff. Patient white count is 14.5, creatinine 0.68 Objective - Vital Signs Vital signs: Vital Signs Temp 98.4 F 10/07/24 07:42 Pulse 91 10/07/24 07:42 Resp 16 10/07/24 07:42 BP 141/57 10/07/24 07:42 Pulse Ox 93 L 10/07/24 07:42 FiO2 Intake & Output 10/06/24 10/07/24 10/07/24 18:59 06:59 18:59 Output Total 1900 200 Balance -1900 -200 Output: Urine 1900 200 Other: Voiding Method Urinal - Exam GENERAL DESCRIPTION: An elderly male lying in bed in no distress RESPIRATORY SYSTEM: Unlabored breathing , decreased breath sounds at bases HEART: S1 S2 regular rate and rhythm , ABDOMEN: Soft , no tenderness EXTREMITIES: Left foot is currently dressed - Labs CBC & Chem 7: 10/07/24 03:26 10/07/24 03:26 Labs: Abnormal Lab Results - Last 24 Hours (Table) 10/06/24 10/06/24 10/07/24 Range/Units 16:30 20:52 03:26 WBC (4.50-10.00) X 10*3/uL RBC (4.40-5.60) X 10*6/uL Hgb (13.0-17.0) g/dL Hct (39.6-50.0) % Immature Gran # (0.00-0.04) X 10*3/uL Neutrophils # (1.80-7.70) X 10*3/uL Sodium 133 L (137-145) mmol/L POC Glucose (mg/dL) 172 H 154 H (70-110) mg/dL Calcium 8.1 L (8.4-10.2) mg/dL 10/07/24 10/07/24 Range/Units 03:26 11:19 WBC 14.45 H (4.50-10.00) X 10*3/uL RBC 3.00 L (4.40-5.60) X 10*6/uL Hgb 8.8 L (13.0-17.0) g/dL Hct 26.4 L (39.6-50.0) % Immature Gran # 0.47 H (0.00-0.04) X 10*3/uL Neutrophils # 11.91 H (1.80-7.70) X 10*3/uL Sodium (137-145) mmol/L POC Glucose (mg/dL) 157 H (70-110) mg/dL Calcium (8.4-10.2) mg/dL Microbiology - Last 24 Hours (Table) 10/04/24 14:30 Anaerobic Culture - Preliminary Foot - Left 10/04/24 14:30 Gram Stain - Final Foot - Left Wound Culture - Final Staphylococcus aureus 10/03/24 10:28 Blood Culture Gram Stain - Final Blood Blood Culture - Final Staphylococcus aureus Molecular ID Assessment and Plan (1) Sepsis Current Visit: Yes Status: Acute Code(s): A41.9 - SEPSIS, UNSPECIFIED ORGANISM SNOMED Code(s): 46552782 (2) Diabetic foot infection Current Visit: Yes Status: Acute Code(s): E11.628 - TYPE 2 DIABETES MELLITUS WITH OTHER SKIN COMPLICATIONS; L08.9 - LOCAL INFECTION OF THE SKIN AND SUBCUTANEOUS TISSUE, UNSP SNOMED Code(s): 925049567 (3) Gangrene of toe of left foot Current Visit: Yes Status: Acute Code(s): I96 - GANGRENE, NOT ELSEWHERE CLASSIFIED SNOMED Code(s): 57308607500579567 (4) Osteomyelitis Current Visit: No Status: Acute Code(s): M86.9 - OSTEOMYELITIS, UNSPECIFIED SNOMED Code(s): 66800641 (5) MSSA bacteremia Current Visit: Yes Status: Acute Code(s): R78.81 - BACTEREMIA; B95.61 - METHICILLIN SUSCEP STAPH INFCT CAUSING DIS CLASSD ELSR SNOMED Code(s): 360931133 Plan: 1patient presented hospital with sepsis in this patient who did have a fever tachycardia elevated white committee criteria for SIRS source is left diabetic foot infection with gangrene of the fourth toe and will need to cover for the polymicrobial blanca associated with diabetic foot infection in this patient who did have previous history of MRSA as well as stenotrophomonas 2-patient with multiple antibiotic ALLERGIES that would limit the number of antibiotic safe to use 3-patient is status post left transmetatarsal amputation completed on 10/04/2024 4patient with MSSA bacteremia sourse is left diabetic foot infection, blood culture has been repeated to document clearance of his bacteremia 5patient white count is mildly elevated currently covered with the cefazolin and Flagyl and will monitor clinical course closely Dictation was produced using [employer] dictation software. please excuse any grammatical, word or spelling errors.
[2024-10-07 16:50] LABS: Glucose,Whole Blood 231 mg/dL (70-110)
[2024-10-07 20:06] LABS: Glucose,Whole Blood 240 mg/dL (70-110)
[2024-10-08 04:35] LABS: Basophils % (A) 0.6 %; Eosinophils # (A) 0.09 10*3/uL (0.04-0.35); Eosinophils % (A) 0.6 %; HGB 10.2 g/dL (13.0-17.0); Lymphocytes # (A) 1.08 10*3/uL (0.90-5.00); Lymphocytes % (A) 6.7 %; MCH 29.6 pg (27.0-32.0); Mean Platelet Volume 9.1 fL (9.5-12.2); Monocytes # (A) 1.08 10*3/uL (0.20-1.00); Monocytes % (A) 6.7 %; Neutrophils # (A) 13.03 10*3/uL (1.80-7.70); Neutrophils % (A) 80.7 %; Platelet Count 367 10*3/uL (140-440); RBC 3.45 10*6/uL (4.40-5.60); RDW 12.3 % (11.5-14.5); WBC 16.14 10*3/uL (4.50-10.00)
[2024-10-08 04:52] LABS: African American GFR (CKD) >90 (>60 ml/min/1.73 sqM); Anion Gap 5 mmol/L; Blood Urea Nitrogen 12 mg/dL (9-20); Calcium 8.4 mg/dL (8.4-10.2); Carbon Dioxide 30 mmol/L (22-30); Chloride 100 mmol/L (98-107); Glucose 100 mg/dL (74-99); Magnesium 1.9 mg/dL (1.6-2.3); Non-African American GFR(CKD) 86 (>60 ml/min/1.73 sqM); Sodium 135 mmol/L (137-145)
[2024-10-08 06:22] LABS: Glucose,Whole Blood 123 mg/dL (70-110)
--- NOTE | 2024-10-08 08:14 | P.PN ---
Subjective Progress Note Date: 10/08/24 Principal diagnosis: Peripheral arterial disease, left gangrene toes Patient is seen and examined today as a follow-up. He is postop day #4 for left transmetatarsal amputation. He has been afebrile. States pain is controlled. He was scheduled for angiogram of the lower extremities today but now has decided that he does not want to proceed with an angiogram and states he is feeling well enough and that he was told by someone it may not help. Patient states that he does not want any kind of rehab that he wants to go home. Physical therapy has seen patient and has a walker at the bedside. Objective - Vital Signs Vital signs: Vital Signs Temp 98.4 F 10/08/24 07:41 Pulse 90 10/08/24 07:41 Resp 18 10/08/24 07:41 BP 147/62 10/08/24 07:41 Pulse Ox 93 L 10/08/24 07:41 FiO2 Intake & Output 10/07/24 10/08/24 10/08/24 18:59 06:59 18:59 Intake Total 1350 480 Output Total 450 750 Balance 900 -270 Weight 85.729 kg Intake: Intake, IV Titration 1350 Amount Lactated Ringers 1,000 ml 1300 @ 130 mls/hr IV .[id number] [facility] Rx#:[id number] ceFAZolin 2 gm In Sodium 50 Chloride 0.9% 50 ml @ 100 mls/hr IVPB Q8HR [facility] Rx# :[id number] Oral 480 Output: Urine 450 750 Other: Voiding Method Urinal # Voids 4 - Exam General appearance: The patient is alert, oriented, appears in no acute distress. HET: Head is normocephalic and atraumatic. Pupils are equal and reactive. Neck: Supple. Heart: Regular. Lungs: Equal expansion, normal respiratory effort. Abdomen: Soft, nondistended. Extremities: Lower extremities skin is dry, scaly and flaky. Left foot TMA site well-approximated, small area of nonviable tissue. Good capillary refill. Ecchymosis to plantar aspect of foot. Neurological: No focal deficits. Strength and sensation are grossly intact. - Labs CBC & Chem 7: 10/08/24 03:57 10/08/24 03:57 Labs: Abnormal Lab Results - Last 24 Hours (Table) 10/07/24 10/07/24 10/07/24 Range/Units 03:26 11:19 16:49 WBC 14.45 H (4.50-10.00) X 10*3/uL RBC 3.00 L (4.40-5.60) X 10*6/uL Hgb 8.8 L (13.0-17.0) g/dL Hct 26.4 L (39.6-50.0) % MPV (9.5-12.2) fL Immature Gran # 0.47 H (0.00-0.04) X 10*3/uL Neutrophils # 11.91 H (1.80-7.70) X 10*3/uL Monocytes # (0.20-1.00) 10*3/uL Sodium (137-145) mmol/L Glucose (74-99) mg/dL POC Glucose (mg/dL) 157 H 231 H (70-110) mg/dL 10/07/24 10/08/24 10/08/24 Range/Units 20:05 03:57 03:57 WBC 16.14 H (4.50-10.00) X 10*3/uL RBC 3.45 L (4.40-5.60) X 10*6/uL Hgb 10.2 L (13.0-17.0) g/dL Hct 30.0 L (39.6-50.0) % MPV 9.1 L (9.5-12.2) fL Immature Gran # 0.76 H (0.00-0.04) X 10*3/uL Neutrophils # 13.03 H (1.80-7.70) X 10*3/uL Monocytes # 1.08 H (0.20-1.00) 10*3/uL Sodium 135 L (137-145) mmol/L Glucose 100 H (74-99) mg/dL POC Glucose (mg/dL) 240 H (70-110) mg/dL 10/08/24 Range/Units 06:21 WBC (4.50-10.00) X 10*3/uL RBC (4.40-5.60) X 10*6/uL Hgb (13.0-17.0) g/dL Hct (39.6-50.0) % MPV (9.5-12.2) fL Immature Gran # (0.00-0.04) X 10*3/uL Neutrophils # (1.80-7.70) X 10*3/uL Monocytes # (0.20-1.00) 10*3/uL Sodium (137-145) mmol/L Glucose (74-99) mg/dL POC Glucose (mg/dL) 123 H (70-110) mg/dL Microbiology - Last 24 Hours (Table) 10/06/24 11:57 Blood Culture - Preliminary Blood Assessment and Plan Assessment: 1. Left foot gangrene fourth toe status post transmetatarsal amputation 2. Left foot cellulitis 3. Arthrosclerotic disease of the lower extremities 4. Diabetes mellitus 5. Chronic tobacco use 6. History of previous gangrenous toes status post amputation first and second toe of the left foot 7. History of left lower extremity deep vein thrombosis Plan: 1. Consult to physical therapy, heel walk only left foot 2. Recommend postop shoe 3. Recommend lower extremity angiogram, patient was initially scheduled for today however is declining at this time. Procedure canceled. 4. Patient may have consistent carbohydrate diet 5. Continue with pain management 6. Will start on cilastazol 7. Continue with pain management as ordered 8. Patient is cleared from vascular surgery. Follow-up with Dr. Mendoza in 2 weeks. 9. Continue with recommendations from infectious disease 10. Rest of medical management per primary medical team Thank you for this consultation, we will sign off at this time. The impression and plan of care has been dictated as directed. Dr. Marshall I performed a history and examination of this patient, discussed the same with the dictator. I agree with the dictator's note ,documented as a scribe. Any additional findings or plans will be noted.
[2024-10-08] MEDS: cilostazoL 100 MG TAB PO SCH (09:31)
[2024-10-08] MEDS: ceFAZolin 2 GM in DEXTROSE 5% IN WATER 50 ML IVPB SCH (10:18)
--- NOTE | 2024-10-08 11:19 | P.PN ---
Subjective Progress Note Date: 10/08/24 74-year-old male with PMH of ede-crrydho-njkflgtyf diabetes mellitus, hypertension, hyperlipidemia, previous DVT approximately 20 years ago which was treated with heparin and BPH presented emergency room for concerns for a foot infection. States this has been bugging him for a few days and progressively w orsening, particularly with ambulation. He does have a history of infection in the first and second digit of the left foot, with previous culture positive for Pseudomonas as well as MRSA. He endorses some chills over that time. However denies any confirmed fevers, nausea, vomiting, changes in appetite. 10/04 - He is seen and examined at bedside this morning, now on the 4th floor. Overnight he had worsening pain, for which she received Dilaudid which she stated helped more than the morphine he had previously been receiving. He was also noted to have 686 cc of urine on his bladder scan, however did not want to have a khan catheter placed. He was noted to have some better urine production throughout the night and a repeat bladder scan was done early this morning which showed ~200 cc of urine. 10/05 - He is seen and examined at bedside this morning. He underwent transmetatarsal amputation of the left foot yesterday. He had no acute events overnight. Continues to endorse pain in his left calf area, especially when squeezed. Discussed with patient likely secondary to extensive peripheral artery disease, and symptoms are likely claudication. He had concern was a DVT, as it was similar to something it experience before. Previous duplex ultrasound showed no signs of DVT, D-dimer tested today showed to be 0.76. Initiate on cilostazol 100 mg twice daily for claudication-like pain. 10/06 - ongoing pain per pt, but appears comfortable on exam. pain medication adjusted yesterday with addition of gabapentin, lidocaine patch, increase of opiate medication 10/07 - He is seen and examined at bedside this morning. Continues to complain of pain, while appearing to be comfortable on exam. Will undergo angiogram with revascularization with vascular surgery tomorrow morning. Has no acute complaints this morning, continues to tolerate diet well as well as no difficulties or changes in bowel movements and urinary function. 10/08 - He is seen and examined at bedside this morning. He has no acute complaints at this time, stating that his pain is well-controlled when he receives medication. He was originally scheduled to undergo an angiogram today, however proceeded to decline this morning. He states that someone told him it may not help very much, however he is unsure of who this was. REVIEW OF SYSTEMS: Pertinent positives and negatives noted in HPI. Physical Exam: General: nontoxic, no distress, appears at stated age. Unkempt in appearance Derm: warm, dry, intact Head: atraumatic, normocephalic, symmetric Eyes: EOMI, anicteric sclera Mouth: no lip lesion, mucus membranes moist Cardiovascular: S1 S2 reg, no murmur, rubs, or gallops Lungs: CTA bilateral, no rales, no accessory muscle use; diminished bilaterally Abdominal: soft, non-tender to palpataion, no appreciable organomegaly Extremities: no gross muscle atrophy, no edema, no contractures; tenderness to palpation from below the left knee to the toes; first and second toe on left foot amputated, gangrenous appearing fourth digit of the left foot with foul odor. Difficulty palpating pedal pulses bilaterally. Claudication-like pain in the left lower extremity. Neuro: Alert, Oriented, CNII-XII grossly intact, gait normal Psych: appropriate affect Data Received Today: Labs: WBC 16.14, hemoglobin 10.2, hematocrit 30.0, platelet 367; sodium 136, potassium 4.0, BUN 12, creatinine 0.83, calcium 8.4, magnesium 1.9 Imagining: No new imaging today Assessment and plan 74-year-old male with PMH of wyc-wihqglj-sugnvexxz diabetes mellitus, hypertension, hyperlipidemia, previous DVT proximately 20 years ago treated with heparin, multiple previous foot infections with history of Pseudomonas and MRSA and BPH presented emergency room for concerns for a foot infection. #History of DVT, not currently on anticoagulation #Atherosclerotic disease lower extremities, with symptoms of possible claudication v neuropathic pain -Endorses left lower extremity tenderness to palpation -Bilateral duplex venous ultrasound of the left lower extremity showed no evidence of DVT -Resume home aspirin 81 mg daily, and Lipitor 80 mg daily -Underwent transmetatarsal amputation of the left foot (10/04/2024) -Continue with gabapentin 100 mg 3 times daily -Initiate Cilostazol 100 mg BID -Continue with current pain management -D-dimer 0.76 -Declined undergoing angiogram or revascularization today; will follow-up with vascular surgery within 2 weeks following discharge #Sepsis, likely secondary to diabetic foot disease and osteomyelitis of the left foot #Left foot, fourth digit gangrene #Left foot cellulitis -History of MRSA and Pseudomonas infection -Continue with cefazolin 2 g every 8 hours; continue on Flagyl 500 mg every 8 hours -As per infectious disease, [facility] of cefazolin 2 g every 8 hours for a total duration of 2 weeks, final day being 10/18/2024 -Tolerating oral intake well; no maintenance fluids currently -Blood culture final showed Staph aureus, repeat blood cultures are no growth to date; after 48 hours of no growth shown, have PICC line inserted - likely tomorrow -Underwent transmetatarsal amputation of the left foot (10/04/2024) -ID following #Ipk-qssmfrt-ywywtbqdd type 2 diabetes mellitus -Accu-Cheks ACHS -Sliding scale initiated -Hemoglobin A1c 8.6 -Monitor for hypoglycemia #Anemia of chronic disease, likely mixed micro and macrocytic with evidence of iron deficiency -Continue monitor CBC -Iron studies: Iron 9, TIBC 148, 6.08% saturation, transferrin 106, ferritin 338, reticulocyte count 0.99 -Initiate on ferrous sulfate 325 mg daily, multivitamin and folic acid -Vitamin B12 206, folate 7.70 #Hypovolemic hyponatremia, improved -Sodium 135 -Monitor BMP #Hypertension -Hold home Cozaar to maintain permissive hypertension in the setting of sepsis #Hyperlipidemia -Continue home Lipitor 80 mg daily #BPH -Continue home Flomax 0.8 mg nightly GI prophylaxis: Protonix 40 mg daily DVT prophylaxis: Heparin 5000 unit SQ every 12 hours Code status: Full code F: None E: Replete as needed N: N.p.o. after midnight A: Ambulatory at baseline Anticipated discharge place: Pending clinical course Anticipated discharge time: Pending clinical course Dictation was produced using [employer] dictation software. please excuse any grammatical, word or spelling errors. Siva Florentino MD PGY-1 IM I saw and evaluated the patient during the juarez and critical portions of this encounter, and discussed the case in detail with the resident author of this note, I agree with the Assessment and Plan, and my changes, if any, are highlighted in blue. Objective - Vital Signs Vital signs: Vital Signs Temp 97.9 F 10/08/24 00:55 Pulse 99 10/08/24 00:55 Resp 18 10/08/24 00:55 BP 128/66 10/08/24 00:55 Pulse Ox 94 L 10/08/24 00:55 FiO2 Intake & Output 10/07/24 10/08/24 10/08/24 18:59 06:59 18:59 Intake Total 1350 480 Output Total 450 750 Balance 900 -270 Weight 85.729 kg Intake: Intake, IV Titration 1350 Amount Lactated Ringers 1,000 ml 1300 @ 130 mls/hr IV .Q7H42M [facility] Rx#:[id number] ceFAZolin 2 gm In Sodium 50 Chloride 0.9% 50 ml @ 100 mls/hr IVPB Q8HR [facility] Rx# :[id number] Oral 480 Output: Urine 450 750 Other: Voiding Method Urinal # Voids 4 - Labs CBC & Chem 7: 10/08/24 03:57 10/08/24 03:57 Labs: Abnormal Lab Results - Last 24 Hours (Table) 10/07/24 10/07/24 10/07/24 Range/Units 03:26 11:19 16:49 WBC 14.45 H (4.50-10.00) X 10*3/uL RBC 3.00 L (4.40-5.60) X 10*6/uL Hgb 8.8 L (13.0-17.0) g/dL Hct 26.4 L (39.6-50.0) % MPV (9.5-12.2) fL Immature Gran # 0.47 H (0.00-0.04) X 10*3/uL Neutrophils # 11.91 H (1.80-7.70) X 10*3/uL Monocytes # (0.20-1.00) 10*3/uL Sodium (137-145) mmol/L Glucose (74-99) mg/dL POC Glucose (mg/dL) 157 H 231 H (70-110) mg/dL 10/07/24 10/08/24 10/08/24 Range/Units 20:05 03:57 03:57 WBC 16.14 H (4.50-10.00) X 10*3/uL RBC 3.45 L (4.40-5.60) X 10*6/uL Hgb 10.2 L (13.0-17.0) g/dL Hct 30.0 L (39.6-50.0) % MPV 9.1 L (9.5-12.2) fL Immature Gran # 0.76 H (0.00-0.04) X 10*3/uL Neutrophils # 13.03 H (1.80-7.70) X 10*3/uL Monocytes # 1.08 H (0.20-1.00) 10*3/uL Sodium 135 L (137-145) mmol/L Glucose 100 H (74-99) mg/dL POC Glucose (mg/dL) 240 H (70-110) mg/dL 10/08/24 Range/Units 06:21 WBC (4.50-10.00) X 10*3/uL RBC (4.40-5.60) X 10*6/uL Hgb (13.0-17.0) g/dL Hct (39.6-50.0) % MPV (9.5-12.2) fL Immature Gran # (0.00-0.04) X 10*3/uL Neutrophils # (1.80-7.70) X 10*3/uL Monocytes # (0.20-1.00) 10*3/uL Sodium (137-145) mmol/L Glucose (74-99) mg/dL POC Glucose (mg/dL) 123 H (70-110) mg/dL Microbiology - Last 24 Hours (Table) 10/06/24 11:57 Blood Culture - Preliminary Blood
[2024-10-08 11:50] LABS: Glucose,Whole Blood 343 mg/dL (70-110)
--- NOTE | 2024-10-08 12:25 | P.PN ---
Subjective Progress Note Date: 10/08/24 Principal diagnosis: Reason for follow-up is left diabetic foot infection and bacteremia Patient is a 74-year-old lady with a past medical history of significant for Diabetes Mellitus, Deep Vein Thrombosis (DVT), Eye Disorder, GERD/Reflux, Hyperlipidemia, Hypertension, Prostate Disorder history of diabetic foot infection requiring amputation current smoker presenting to the hospital for evaluation of left foot toe discoloration. Patient is status post transmetatarsal amputation of the left foot completed on 10/04/2024. On today's evaluation that is 10/08/2024, Patient is afebrile this morning patient denies having any chest pain shortness of breath or cough, the patient is currently on room air, patient denies any abdominal pain no diarrhea no nausea no vomiting, pain to the left foot is currently controlled with the pain medication but mentioned that patches are not helping. Patient white count is up to 16.14 today, creatinine 0.83, left foot culture growing MSSA blood culture positive for MSSA blood culture repeat from 10/06/2024 so far negative Objective - Vital Signs Vital signs: Vital Signs Temp 98.4 F 10/08/24 07:41 Pulse 90 10/08/24 08:16 Resp 18 10/08/24 08:16 BP 147/62 10/08/24 07:41 Pulse Ox 93 L 10/08/24 07:41 FiO2 Intake & Output 10/07/24 10/08/24 10/08/24 18:59 06:59 18:59 Intake Total 1350 480 Output Total 450 750 500 Balance 900 -270 -500 Weight 85.729 kg Intake: Intake, IV Titration 1350 Amount Lactated Ringers 1,000 ml 1300 @ 130 mls/hr IV .Q7H42M [facility] Rx#:[id number] ceFAZolin 2 gm In Sodium 50 Chloride 0.9% 50 ml @ 100 mls/hr IVPB Q8HR [facility] Rx# :[id number] Oral 480 Output: Urine 450 750 500 Other: Voiding Method Urinal Urinal # Voids 4 - Exam GENERAL DESCRIPTION: An elderly male lying in bed in no distress RESPIRATORY SYSTEM: Unlabored breathing , decreased breath sounds at bases HEART: S1 S2 regular rate and rhythm , ABDOMEN: Soft , no tenderness EXTREMITIES:Left foot TMA site well-approximated, small area of nonviable tissue. Good capillary refill. Ecchymosis to plantar aspect of foot per vascular surgery note - Labs CBC & Chem 7: 10/08/24 03:57 10/08/24 03:57 Labs: Abnormal Lab Results - Last 24 Hours (Table) 10/07/24 10/07/24 10/08/24 Range/Units 16:49 20:05 03:57 WBC 16.14 H (4.50-10.00) 10*3/uL RBC 3.45 L (4.40-5.60) 10*6/uL Hgb 10.2 L (13.0-17.0) g/dL Hct 30.0 L (39.6-50.0) % MPV 9.1 L (9.5-12.2) fL Immature Gran # 0.76 H (0.00-0.04) 10*3/uL Neutrophils # 13.03 H (1.80-7.70) 10*3/uL Monocytes # 1.08 H (0.20-1.00) 10*3/uL Sodium (137-145) mmol/L Glucose (74-99) mg/dL POC Glucose (mg/dL) 231 H 240 H (70-110) mg/dL 10/08/24 10/08/24 10/08/24 Range/Units 03:57 06:21 11:46 WBC (4.50-10.00) 10*3/uL RBC (4.40-5.60) 10*6/uL Hgb (13.0-17.0) g/dL Hct (39.6-50.0) % MPV (9.5-12.2) fL Immature Gran # (0.00-0.04) 10*3/uL Neutrophils # (1.80-7.70) 10*3/uL Monocytes # (0.20-1.00) 10*3/uL Sodium 135 L (137-145) mmol/L Glucose 100 H (74-99) mg/dL POC Glucose (mg/dL) 123 H 343 H (70-110) mg/dL Microbiology - Last 24 Hours (Table) 10/06/24 11:57 Blood Culture - Preliminary Blood Assessment and Plan (1) Sepsis Current Visit: Yes Status: Acute Code(s): A41.9 - SEPSIS, UNSPECIFIED ORGANISM SNOMED Code(s): 48811293 (2) Diabetic foot infection Current Visit: Yes Status: Acute Code(s): E11.628 - TYPE 2 DIABETES MELLITUS WITH OTHER SKIN COMPLICATIONS; L08.9 - LOCAL INFECTION OF THE SKIN AND SUBCUTANEOUS TISSUE, UNSP SNOMED Code(s): 037255995 (3) Gangrene of toe of left foot Current Visit: Yes Status: Acute Code(s): I96 - GANGRENE, NOT ELSEWHERE CLASSIFIED SNOMED Code(s): 86420995203777454 (4) Osteomyelitis Current Visit: No Status: Acute Code(s): M86.9 - OSTEOMYELITIS, UNSPECIFIED SNOMED Code(s): 32341724 (5) MSSA bacteremia Current Visit: Yes Status: Acute Code(s): R78.81 - BACTEREMIA; B95.61 - METHICILLIN SUSCEP STAPH INFCT CAUSING DIS CLASSD ELSWHR SNOMED Code(s): 290880307 Plan: 1patient presented hospital with sepsis in this patient who did have a fever tachycardia elevated white committee criteria for SIRS source is left diabetic foot infection with gangrene of the fourth toe and will need to cover for the polymicrobial blanca associated with diabetic foot infection in this patient who did have previous history of MRSA as well as stenotrophomonas 2-patient with multiple antibiotic ALLERGIES that would limit the number of antibiotic safe to use 3-patient is status post left transmetatarsal amputation completed on 10/04/2024 4patient with MSSA bacteremia sourse is left diabetic foot infection, blood culture has been repeated which are so far negative 5patient did have a white count which is slightly concerning patient currently not running any fever vascular surgery note did mention some nonviable tissue and ecchymosis could be responsible for this elevated white count will need to b e monitored closely because of his bacteremia he will need at least 2 weeks of IV cefazolin 2 g every 8 hours on discharge Dictation was produced using [employer] dictation software. please excuse any gra mmatical, word or spelling errors. Time with Patient: Less than 30
[2024-10-08] MEDS: FLUCONAZOLE 100 MG TAB PO SCH (12:35)
[2024-10-08 16:39] LABS: Glucose,Whole Blood 274 mg/dL (70-110)
[2024-10-08 19:54] LABS: Glucose,Whole Blood 251 mg/dL (70-110)
[2024-10-09 03:59] LABS: ALT 7 U/L (4-49); AST 20 U/L (17-59); African American GFR (CKD) >90 (>60 ml/min/1.73 sqM); Albumin 2.3 g/dL (3.5-5.0); Albumin/Globulin Ratio 0.9; Alkaline Phosphatase 90 U/L (38-126); Anion Gap 4 mmol/L; Blood Urea Nitrogen 12 mg/dL (9-20); Carbon Dioxide 30 mmol/L (22-30); Chloride 99 mmol/L (98-107); Globulin 2.7 g/dL; Glucose 123 mg/dL (74-99); Magnesium 1.9 mg/dL (1.6-2.3); Non-African American GFR(CKD) 88 (>60 ml/min/1.73 sqM); Potassium 3.8 mmol/L (3.5-5.1); Sodium 133 mmol/L (137-145); Total Bilirubin 0.2 mg/dL (0.2-1.3)
[2024-10-09 04:28] LABS: C Reactive Protein 22.8 mg/dL (<1.0)
[2024-10-09 06:29] LABS: Glucose,Whole Blood 211 mg/dL (70-110)
[2024-10-09 08:21] LABS: Basophils # (A) 0.08 X 10*3/uL (0.00-0.10); Basophils % (A) 0.5 %; Eosinophils # (A) 0.12 X 10*3/uL (0.04-0.35); Eosinophils % (A) 0.7 %; HCT 27.6 % (39.6-50.0); HGB 9.2 g/dL (13.0-17.0); Lymphocytes # (A) 1.15 X 10*3/uL (0.90-5.00); Lymphocytes % (A) 6.9 %; MCH 29.5 pg (27.0-32.0); MCHC 33.3 g/dL (32.0-37.0); MCV 88.5 FL (80.0-97.0); Mean Platelet Volume 9.3 FL (9.5-12.2); Monocytes # (A) 1.18 X 10*3/uL (0.20-1.00); NRBC Per 100 WBC 0 X 10*3/uL (0.00-0.01); Neutrophils # (A) 13.49 X 10*3/uL (1.80-7.70); Neutrophils % (A) 80.4 %; Platelet Count 361 X 10*3/uL (140-440); RBC 3.12 X 10*6/uL (4.40-5.60); RDW 12.5 % (11.5-14.5); WBC 16.78 X 10*3/uL (4.50-10.00)
[2024-10-09 11:20] LABS: Glucose,Whole Blood 253 mg/dL (70-110)
--- NOTE | 2024-10-09 11:59 | P.PN ---
Subjective Progress Note Date: 10/09/24 74-year-old male with PMH of qsh-bhghvut-xnntpyctm diabetes mellitus, hypertension, hyperlipidemia, previous DVT approximately 20 years ago which was treated with heparin and BPH presented emergency room for concerns for a foot infection. States this has been bugging him for a few days and progressively w orsening, particularly with ambulation. He does have a history of infection in the first and second digit of the left foot, with previous culture positive for Pseudomonas as well as MRSA. He endorses some chills over that time. However denies any confirmed fevers, nausea, vomiting, changes in appetite. 10/04 - He is seen and examined at bedside this morning, now on the 4th floor. Overnight he had worsening pain, for which she received Dilaudid which she stated helped more than the morphine he had previously been receiving. He was also noted to have 686 cc of urine on his bladder scan, however did not want to have a khan catheter placed. He was noted to have some better urine production throughout the night and a repeat bladder scan was done early this morning which showed ~200 cc of urine. 10/05 - He is seen and examined at bedside this morning. He underwent transmetatarsal amputation of the left foot yesterday. He had no acute events overnight. Continues to endorse pain in his left calf area, especially when squeezed. Discussed with patient likely secondary to extensive peripheral artery disease, and symptoms are likely claudication. He had concern was a DVT, as it was similar to something it experience before. Previous duplex ultrasound showed no signs of DVT, D-dimer tested today showed to be 0.76. Initiate on cilostazol 100 mg twice daily for claudication-like pain. 10/06 - ongoing pain per pt, but appears comfortable on exam. pain medication adjusted yesterday with addition of gabapentin, lidocaine patch, increase of opiate medication 10/07 - He is seen and examined at bedside this morning. Continues to complain of pain, while appearing to be comfortable on exam. Will undergo angiogram with revascularization with vascular surgery tomorrow morning. Has no acute complaints this morning, continues to tolerate diet well as well as no difficulties or changes in bowel movements and urinary function. 10/08 - He is seen and examined at bedside this morning. He has no acute complaints at this time, stating that his pain is well-controlled when he receives medication. He was originally scheduled to undergo an angiogram today, however proceeded to decline this morning. He states that someone told him it may not help very much, however he is unsure of who this was. 10/09 - He is seen and examined at bedside this morning. Without acute complaints at this time. Repeat blood cultures been negative for 48 hours, midline will be inserted today for his IV antibiotics upon discharge. Awaiting full confirmation from the [facility], where scripts have been sent. REVIEW OF SYSTEMS: Pertinent positives and negatives noted in HPI. Physical Exam: General: nontoxic, no distress, appears at stated age. Unkempt in appearance Derm: warm, dry, intact Head: atraumatic, normocephalic, symmetric Eyes: EOMI, anicteric sclera Mouth: no lip lesion, mucus membranes moist Cardiovascular: S1 S2 reg, no murmur, rubs, or gallops Lungs: CTA bilateral, no rales, no accessory muscle use; diminished bilaterally Abdominal: soft, non-tender to palpataion, no appreciable organomegaly Extremities: no gross muscle atrophy, no edema, no contractures; tenderness to palpation from below the left knee to the toes; first and second toe on left foot amputated, gangrenous appearing fourth digit of the left foot with foul odor. Difficulty palpating pedal pulses bilaterally. Claudication-like pain in the left lower extremity. Neuro: Alert, Oriented, CNII-XII grossly intact, gait normal Psych: appropriate affect Data Received Today: Labs: WBC 16.70, hemoglobin 9.2, hct 27.6, platelets 361; sodium 133, potassium 3.8, BUN 12, creatinine 0.0, calcium 8.0, magnesium 1.9, total bilirubin 0.2, AST 20, ALT 7, alkaline phosphatase 90, CRP 22.8 Imagining: No new imaging today Assessment and plan 74-year-old male with PMH of yxw-finmtzp-slktpobun diabetes mellitus, hypertension, hyperlipidemia, previous DVT proximately 20 years ago treated with heparin, multiple previous foot infections with history of Pseudomonas and MRSA and BPH presented emergency room for concerns for a foot infection. #History of DVT, not currently on anticoagulation #Atherosclerotic disease lower extremities, with symptoms of possible claudication v neuropathic pain -Resume home aspirin 81 mg daily, and Lipitor 80 mg daily -Underwent transmetatarsal amputation of the left foot yesterday (10/04/2024) -Continue with gabapentin 100 mg 3 times daily -Continue with cilostazol 100 mg BID -Continue with current pain management -D-dimer 0.76 -Declined undergoing angiogram or revascularization today; will follow-up with vascular surgery within 2 weeks following discharge #Sepsis, likely secondary to diabetic foot disease and osteomyelitis of the left foot #Left foot, fourth digit gangrene #Left foot cellulitis -History of MRSA and Pseudomonas infection -Continue with cefazolin 2 g every 8 hours; continue on Flagyl 500 mg every 8 hours -As per infectious disease, [facility] course of cefazolin 2 g every 8 hours for a total duration of 2 weeks, final day being 10/18/2024 -Tolerating oral intake well; no maintenance fluids currently -Repeat blood cultures showed no growth after 48 hours, able to have midline insertion; order placed, currently pending -Underwent transmetatarsal amputation of the left foot (10/04/2024) -ID following #Gxq-whoajlv-jbyfxarfa type 2 diabetes mellitus -Accu-Cheks ACHS -Sliding scale initiated -Hemoglobin A1c 8.6 -Initiate Lantus 10 units nightly, an additional 3 units ACHS -Monitor for hypoglycemia #Anemia of chronic disease, likely mixed micro and macrocytic with evidence of iron deficiency -Continue monitor CBC -Iron studies: Iron 9, TIBC 148, 6.08% saturation, transferrin 106, ferritin 338, reticulocyte count 0.99 -Initiate on ferrous sulfate 325 mg daily, multivitamin and folic acid -Vitamin B12 206, folate 7.70 #Hypovolemic hyponatremia, improved -Sodium 133 -Monitor BMP #Hypertension -Hold home Cozaar to maintain permissive hypertension in the setting of sepsis #Hyperlipidemia -Continue home Lipitor 80 mg daily #BPH -Continue home Flomax 0.8 mg nightly GI prophylaxis: Protonix 40 mg daily DVT prophylaxis: Heparin 5000 unit SQ every 12 hours Code status: Full code F: None E: Replete as needed N: Consistent carbohydrate A: Ambulatory at baseline Anticipated discharge place: Pending clinical course Anticipated discharge time: Pending clinical course Dictation was produced using [employer] dictation software. please excuse any grammatical, word or spelling errors. Siva Florentino MD PGY-1 IM I saw and evaluated the patient during the juarez and critical portions of this encounter, and discussed the case in detail with the resident author of this note, I agree with the Assessment and Plan, and my changes, if any, are highlighted in blue. Increased Gabapentin to 400 mg PO TID for better pain control. Objective - Vital Signs Vital signs: Vital Signs Temp 98.4 F 10/09/24 07:16 Pulse 93 10/09/24 07:16 Resp 16 10/09/24 07:16 BP 126/65 10/09/24 07:16 Pulse Ox 93 L 10/09/24 07:16 FiO2 Intake & Output 10/08/24 10/09/24 10/09/24 18:59 06:59 18:59 Intake Total 240 Output Total 1100 750 Balance -1100 -510 Intake: Oral 240 Output: Urine 1100 750 Other: Voiding Method Urinal Urinal # Voids 2 3 # Bowel Movements 0 - Labs CBC & Chem 7: 10/09/24 03:04 10/09/24 03:04 Labs: Abnormal Lab Results - Last 24 Hours (Table) 10/08/24 10/08/24 10/08/24 Range/Units 11:46 16:35 19:52 Sodium (137-145) mmol/L Glucose (74-99) mg/dL POC Glucose (mg/dL) 343 H 274 H 251 H (70-110) mg/dL Calcium (8.4-10.2) mg/dL C-Reactive Protein (<1.0) mg/dL Total Protein (6.3-8.2) g/dL Albumin (3.5-5.0) g/dL 10/09/24 10/09/24 Range/Units 03:04 06:27 Sodium 133 L (137-145) mmol/L Glucose 123 H (74-99) mg/dL POC Glucose (mg/dL) 211 H (70-110) mg/dL Calcium 8.0 L (8.4-10.2) mg/dL C-Reactive Protein 22.8 H (<1.0) mg/dL Total Protein 5.0 L (6.3-8.2) g/dL Albumin 2.3 L (3.5-5.0) g/dL Microbiology - Last 24 Hours (Table) 10/06/24 11:57 Blood Culture - Preliminary Blood 10/04/24 14:30 Anaerobic Culture - Final Foot - Left
[2024-10-09] MEDS: INSULIN LISPRO (HumaLOG) 100 UNIT/ML 10 mL VL SQ SCH (12:27)
[2024-10-09 16:11] LABS: Glucose,Whole Blood 404 mg/dL (70-110)
[2024-10-09] MEDS: GABAPENTIN 400 MG CAP PO SCH (16:49)
[2024-10-09 18:00] LABS: Glucose,Whole Blood 263 mg/dL (70-110)
[2024-10-09 20:31] LABS: Glucose,Whole Blood 183 mg/dL (70-110)
[2024-10-09] MEDS: INSULIN GLARGINE (LANTUS) 100 UNIT/ML SYR SQ SCH (22:49)
[2024-10-10 06:21] LABS: Glucose,Whole Blood 138 mg/dL (70-110)
[2024-10-10 06:29] LABS: Basophils # (A) 0.05 10*3/uL (0.00-0.10); Basophils % (A) 0.3 %; Eosinophils # (A) 0.09 10*3/uL (0.04-0.35); Eosinophils % (A) 0.5 %; MCV 88.3 fL (80.0-97.0); Mean Platelet Volume 8.8 fL (9.5-12.2); Monocytes # (A) 1.42 10*3/uL (0.20-1.00); Monocytes % (A) 8.3 %; Neutrophils # (A) 13.48 10*3/uL (1.80-7.70); Neutrophils % (A) 79.2 %; Platelet Count 332 10*3/uL (140-440); RBC 2.83 10*6/uL (4.40-5.60); RDW 12.6 % (11.5-14.5); WBC 17.04 10*3/uL (4.50-10.00)
[2024-10-10 06:38] LABS: African American GFR (CKD) >90 (>60 ml/min/1.73 sqM); Anion Gap 3 mmol/L; Blood Urea Nitrogen 11 mg/dL (9-20); Calcium 7.7 mg/dL (8.4-10.2); Carbon Dioxide 28 mmol/L (22-30); Chloride 100 mmol/L (98-107); Glucose 113 mg/dL (74-99); Non-African American GFR(CKD) >90 (>60 ml/min/1.73 sqM); Potassium 3.9 mmol/L (3.5-5.1); Sodium 131 mmol/L (137-145)
[2024-10-10 06:48] LABS: HGB 8.5 g/dL (13.0-17.0)
[2024-10-10] MEDS: SODIUM CHLORIDE 0.9% 1,000 ML IV ONE (10:53)
[2024-10-10 11:59] LABS: Glucose,Whole Blood 175 mg/dL (70-110)
--- NOTE | 2024-10-10 12:44 | P.PN ---
Subjective Progress Note Date: 10/10/24 74-year-old male with PMH of zet-zpxvvud-jdvnpxbie diabetes mellitus, hypertension, hyperlipidemia, previous DVT approximately 20 years ago which was treated with heparin and BPH presented emergency room for concerns for a foot infection. States this has been bugging him for a few days and progressively w orsening, particularly with ambulation. He does have a history of infection in the first and second digit of the left foot, with previous culture positive for Pseudomonas as well as MRSA. He endorses some chills over that time. However denies any confirmed fevers, nausea, vomiting, changes in appetite. 10/04 - He is seen and examined at bedside this morning, now on the 4th floor. Overnight he had worsening pain, for which she received Dilaudid which she stated helped more than the morphine he had previously been receiving. He was also noted to have 686 cc of urine on his bladder scan, however did not want to have a khan catheter placed. He was noted to have some better urine production throughout the night and a repeat bladder scan was done early this morning which showed ~200 cc of urine. 10/05 - He is seen and examined at bedside this morning. He underwent transmetatarsal amputation of the left foot yesterday. He had no acute events overnight. Continues to endorse pain in his left calf area, especially when squeezed. Discussed with patient likely secondary to extensive peripheral artery disease, and symptoms are likely claudication. He had concern was a DVT, as it was similar to something it experience before. Previous duplex ultrasound showed no signs of DVT, D-dimer tested today showed to be 0.76. Initiate on cilostazol 100 mg twice daily for claudication-like pain. 10/06 - ongoing pain per pt, but appears comfortable on exam. pain medication adjusted yesterday with addition of gabapentin, lidocaine patch, increase of opiate medication 10/07 - He is seen and examined at bedside this morning. Continues to complain of pain, while appearing to be comfortable on exam. Will undergo angiogram with revascularization with vascular surgery tomorrow morning. Has no acute complaints this morning, continues to tolerate diet well as well as no difficulties or changes in bowel movements and urinary function. 10/08 - He is seen and examined at bedside this morning. He has no acute complaints at this time, stating that his pain is well-controlled when he receives medication. He was originally scheduled to undergo an angiogram today, however proceeded to decline this morning. He states that someone told him it may not help very much, however he is unsure of who this was. 10/09 - He is seen and examined at bedside this morning. Without acute complaints at this time. Repeat blood cultures been negative for 48 hours, midline will be inserted today for his IV antibiotics upon discharge. Awaiting full confirmation from the [facility], where scripts have been sent. 10/10 - He is seen and examined at bedside this morning. Did spike a small fever late last night at 100.6 F, has remained tachycardic intermittently and CBC shows leukocytosis that has persisted with an increase over the past couple of days. Echocardiogram ordered to further evaluate for the possibility of endocarditis. He continues to endorse the same intermittent throbbing pain in his left calf, however otherwise has no acute complaints today. REVIEW OF SYSTEMS: Pertinent positives and negatives noted in HPI. Physical Exam: General: nontoxic, no distress, appears at stated age. Unkempt in appearance Derm: warm, dry, intact Head: atraumatic, normocephalic, symmetric Eyes: EOMI, anicteric sclera Mouth: no lip lesion, mucus membranes moist Cardiovascular: S1 S2 reg, no murmur, rubs, or gallops Lungs: CTA bilateral, no rales, no accessory muscle use; diminished bilaterally Abdominal: soft, non-tender to palpataion, no appreciable organomegaly Extremities: no gross muscle atrophy, no edema, no contractures; left foot in dressing Neuro: Alert, Oriented, CNII-XII grossly intact, gait normal Psych: appropriate affect Data Received Today: Labs: WBC 17.04, hemoglobin 8.5 hematocrit 25.0, platelet 332; sodium 131, potassium 3.9, BUN 11, creatinine 0.74, calcium 7.7 Imagining: No new imaging today Assessment and plan 74-year-old male with PMH of oyc-ymqpkeg-wpubfoabi diabetes mellitus, hypertension, hyperlipidemia, previous DVT proximately 20 years ago treated with heparin, multiple previous foot infections with history of Pseudomonas and MRSA and BPH presented emergency room for concerns for a foot infection. #Sepsis, likely secondary to diabetic foot disease and osteomyelitis of the left foot status post transmetatarsal amputation #Left foot, fourth digit gangrene #Left foot cellulitis #MSSA bacteremia -History of MRSA and Pseudomonas infection -Continue with cefazolin 2 g every 8 hours -As per infectious disease, [facility] course of cefazolin 2 g every 8 hours for a total duration of 2 weeks, final day being 10/18/2024 -Tolerating oral intake well; no maintenance fluids currently -Repeat blood cultures showed no growth after 48 hours, able to have midline insertion; order placed, currently pending -Underwent transmetatarsal amputation of the left foot (10/04/2024) -ID following -Echocardiogram ordered, to rule out endocarditis #History of DVT, not currently on anticoagulation #Atherosclerotic disease lower extremities, with symptoms of possible claudication v neuropathic pain -Resume home aspirin 81 mg daily, and Lipitor 80 mg daily -Underwent transmetatarsal amputation of the left foot yesterday (10/04/2024) -Continue with gabapentin 100 mg 3 times daily -Continue with cilostazol 100 mg BID -Continue with current pain management -D-dimer 0.76 -Declined undergoing angiogram or revascularization today; will follow-up with vascular surgery within 2 weeks following discharge #Xvk-qfwqjam-bqyifwrif type 2 diabetes mellitus -Accu-Cheks ACHS -Sliding scale initiated -Hemoglobin A1c 8.6 -Initiate Lantus 10 units nightly, an additional 3 units ACHS -Monitor for hypoglycemia #Anemia of chronic disease, likely mixed micro and macrocytic with evidence of iron deficiency -Continue monitor CBC -Iron studies: Iron 9, TIBC 148, 6.08% saturation, transferrin 106, ferritin 338, reticulocyte count 0.99 - reticulocyte index 0.5, indicating inadequate response -Initiate on ferrous sulfate 325 mg daily, multivitamin and folic acid -Vitamin B12 206, folate 7.70 #Hypovolemic hyponatremia, improved -Sodium 131 -Monitor BMP -Given 1 L bolus normal saline, will recheck BMP #Hypertension -Hold home Cozaar to maintain permissive hypertension in the setting of sepsis #Hyperlipidemia -Continue home Lipitor 80 mg daily #BPH -Continue home Flomax 0.8 mg nightly GI prophylaxis: Protonix 40 mg daily DVT prophylaxis: Heparin 5000 unit SQ every 12 hours Code status: Full code F: None E: Replete as needed N: Consistent carbohydrate A: Ambulatory at baseline Anticipated discharge place: Pending clinical course Anticipated discharge time: Pending clinical course Dictation was produced using dragon dictation software. please excuse any grammatical, word or spelling errors. Siva Florentino MD PGY-1 IM I have seen and evaluated the patient today. Discussed with the resident and agree with the residents finding and plan as documented in the resident's note. Changes highlighted in blue font. Patient is severely ill, prognosis guarded. Objective - Vital Signs Vital signs: Vital Signs Temp 97.8 F 10/10/24 07:07 Pulse 83 10/10/24 07:07 Resp 18 10/10/24 07:07 BP 130/65 10/10/24 07:07 Pulse Ox 91 L 10/10/24 07:07 FiO2 Intake & Output 10/09/24 10/10/24 10/10/24 18:59 06:59 18:59 Intake Total 400 Output Total 725 550 600 Balance -325 -550 -600 Intake: Oral 400 Output: Urine 725 550 600 Other: Voiding Method Urinal # Voids 4 1 - Labs CBC & Chem 7: 10/10/24 05:59 10/10/24 15:32 Labs: Abnormal Lab Results - Last 24 Hours (Table) 10/09/24 10/09/24 10/09/24 Range/Units 16:09 17:58 20:30 WBC (4.50-10.00) 10*3/uL RBC (4.40-5.60) 10*6/uL Hgb (13.0-17.0) g/dL Hct (39.6-50.0) % MPV (9.5-12.2) fL Immature Gran # (0.00-0.04) 10*3/uL Neutrophils # (1.80-7.70) 10*3/uL Monocytes # (0.20-1.00) 10*3/uL Sodium (137-145) mmol/L Glucose (74-99) mg/dL POC Glucose (mg/dL) 404 H 263 H 183 H (70-110) mg/dL Calcium (8.4-10.2) mg/dL 10/10/24 10/10/24 10/10/24 Range/Units 05:59 05:59 06:20 WBC 17.04 H (4.50-10.00) 10*3/uL RBC 2.83 L (4.40-5.60) 10*6/uL Hgb 8.5 L D (13.0-17.0) g/dL Hct 25.0 L (39.6-50.0) % MPV 8.8 L (9.5-12.2) fL Immature Gran # 0.80 H (0.00-0.04) 10*3/uL Neutrophils # 13.48 H (1.80-7.70) 10*3/uL Monocytes # 1.42 H (0.20-1.00) 10*3/uL Sodium 131 L (137-145) mmol/L Glucose 113 H (74-99) mg/dL POC Glucose (mg/dL) 138 H (70-110) mg/dL Calcium 7.7 L (8.4-10.2) mg/dL 10/10/24 Range/Units 11:57 WBC (4.50-10.00) 10*3/uL RBC (4.40-5.60) 10*6/uL Hgb (13.0-17.0) g/dL Hct (39.6-50.0) % MPV (9.5-12.2) fL Immature Gran # (0.00-0.04) 10*3/uL Neutrophils # (1.80-7.70) 10*3/uL Monocytes # (0.20-1.00) 10*3/uL Sodium (137-145) mmol/L Glucose (74-99) mg/dL POC Glucose (mg/dL) 175 H (70-110) mg/dL Calcium (8.4-10.2) mg/dL Microbiology - Last 24 Hours (Table) 10/06/24 11:57 Blood Culture - Preliminary Blood
--- NOTE | 2024-10-10 15:01 | P.PN ---
Subjective Progress Note Date: 10/10/24 Principal diagnosis: Peripheral arterial disease, left gangrene toes Patient is seen and examined today as a follow-up secondary to infectious disease reaching out and stating that patient is now agreeable to undergo lower extremity angiogram. Apparently patient's leukocytosis is not improving despite being on IV antibiotics and actually has been trending up. Patient has been afebrile today however yesterday evening did have a one-time spike in his temperature to 100.6. Patient denies any pain in his left thigh or calf but does state that he has some pain on the lateral aspect of his foot up to his ankle as well as the plantar aspect. He denies any abdominal pain, nausea or vomiting. No shortness of breath or chest pain. Objective - Vital Signs Vital signs: Vital Signs Temp 97.8 F 10/10/24 07:07 Pulse 83 10/10/24 07:07 Resp 18 10/10/24 07:07 BP 130/65 10/10/24 07:07 Pulse Ox 91 L 10/10/24 07:07 FiO2 Intake & Output 10/09/24 10/10/24 10/10/24 18:59 06:59 18:59 Intake Total 400 Output Total 725 550 600 Balance -325 -550 -600 Intake: Oral 400 Output: Urine 725 550 600 Other: Voiding Method Urinal Urinal # Voids 4 1 - Exam General appearance: The patient is alert, oriented, appears in no acute distress. HET: Head is normocephalic and atraumatic. Neck: Supple. Abdomen: Soft, nondistended. Extremities: Lower extremities skin is dry, scaly and flaky. Left calf nontender with calf squeeze. Left foot TMA site well-approximated, small area of nonviable tissue with no change from previous. Foot is warm, pink, with good capillary refill. Ecchymosis to plantar aspect of foot with blistering. Neurological: No focal deficits. Strength and sensation are grossly intact. - Labs CBC & Chem 7: 10/10/24 05:59 10/10/24 05:59 Labs: Abnormal Lab Results - Last 24 Hours (Table) 10/09/24 10/09/24 10/09/24 Range/Units 16:09 17:58 20:30 WBC (4.50-10.00) 10*3/uL RBC (4.40-5.60) 10*6/uL Hgb (13.0-17.0) g/dL Hct (39.6-50.0) % MPV (9.5-12.2) fL Immature Gran # (0.00-0.04) 10*3/uL Neutrophils # (1.80-7.70) 10*3/uL Monocytes # (0.20-1.00) 10*3/uL Sodium (137-145) mmol/L Glucose (74-99) mg/dL POC Glucose (mg/dL) 404 H 263 H 183 H (70-110) mg/dL Calcium (8.4-10.2) mg/dL 10/10/24 10/10/24 10/10/24 Range/Units 05:59 05:59 06:20 WBC 17.04 H (4.50-10.00) 10*3/uL RBC 2.83 L (4.40-5.60) 10*6/uL Hgb 8.5 L D (13.0-17.0) g/dL Hct 25.0 L (39.6-50.0) % MPV 8.8 L (9.5-12.2) fL Immature Gran # 0.80 H (0.00-0.04) 10*3/uL Neutrophils # 13.48 H (1.80-7.70) 10*3/uL Monocytes # 1.42 H (0.20-1.00) 10*3/uL Sodium 131 L (137-145) mmol/L Glucose 113 H (74-99) mg/dL POC Glucose (mg/dL) 138 H (70-110) mg/dL Calcium 7.7 L (8.4-10.2) mg/dL 10/10/24 Range/Units 11:57 WBC (4.50-10.00) 10*3/uL RBC (4.40-5.60) 10*6/uL Hgb (13.0-17.0) g/dL Hct (39.6-50.0) % MPV (9.5-12.2) fL Immature Gran # (0.00-0.04) 10*3/uL Neutrophils # (1.80-7.70) 10*3/uL Monocytes # (0.20-1.00) 10*3/uL Sodium (137-145) mmol/L Glucose (74-99) mg/dL POC Glucose (mg/dL) 175 H (70-110) mg/dL Calcium (8.4-10.2) mg/dL Microbiology - Last 24 Hours (Table) 10/06/24 11:57 Blood Culture - Preliminary Blood Assessment and Plan Assessment: 1. Left foot gangrene fourth toe status post transmetatarsal amputation 2. Left foot cellulitis 3. Arthrosclerotic disease of the lower extremities 4. Diabetes mellitus 5. Chronic tobacco use 6. History of previous gangrenous toes status post amputation first and second toe of the left foot 7. History of left lower extremity deep vein thrombosis Plan: Vascular surgeon recommended lower extremity angiogram which was initially scheduled for this past Monday10/08/24 however patient had declined at that time and procedure was canceled. The procedure was discussed in detail with the patient prior to scheduling as well as the day of the procedure and patient still declined moving forward. He has remained in the hospital with IV antibiotic therapy as well as was awaiting midline and authorization from insurance company for outpatient antibiotics. Apparently today patient was seen by infectious disease and discussed angiogram and patient is now agreeable to undergoing an angiogram. There is no urgency to undergo procedure, the TMA surgical incision has a small area of nonviable tissue that is no change from 2 days prior. Foot is warm, pink with good capillary refill. Angiogram can be done as an outpatient from a vascular surgical standpoint. Timing is still to be determined at this time. Rest of medical management per primary medical team. The impression and plan of care has been dictated as directed. Dr. Alicea I performed a history and examination of this patient, discussed the same with the dictator. I agree with the dictator's note ,documented as a scribe. Any additional findings or plans will be noted.
[2024-10-10 16:03] LABS: African American GFR (CKD) >90 (>60 ml/min/1.73 sqM); Anion Gap 3 mmol/L; Blood Urea Nitrogen 15 mg/dL (9-20); Calcium 7.8 mg/dL (8.4-10.2); Carbon Dioxide 30 mmol/L (22-30); Chloride 98 mmol/L (98-107); Glucose 198 mg/dL (74-99); Non-African American GFR(CKD) 87 (>60 ml/min/1.73 sqM); Potassium 3.8 mmol/L (3.5-5.1); Sodium 131 mmol/L (137-145)
--- NOTE | 2024-10-10 16:24 | P.PN ---
Subjective Progress Note Date: 10/09/24 Principal diagnosis: Reason for follow-up is left diabetic foot infection and bacteremia Patient is a 74-year-old lady with a past medical history of significant for Diabetes Mellitus, Deep Vein Thrombosis (DVT), Eye Disorder, GERD/Reflux, Hyperlipidemia, Hypertension, Prostate Disorder history of diabetic foot infection requiring amputation current smoker presenting to the hospital for evaluation of left foot toe discoloration. Patient is status post transmetatarsal amputation of the left foot completed on 10/04/2024. On today's evaluation that is 10/09/2024,the patient denies any fever or any chills, patient is breathing comfortably on room air, the patient denies chest pain shortness of breath and no significant cough, patient denies abdominal pain, no nausea vomiting or diarrhea. Swelling of pain to the left foot but some control. Patient white count is about the same as yesterday 16.78, creatinine 0.80 Objective - Vital Signs Vital signs: Vital Signs Temp 98.4 F 10/09/24 07:16 Pulse 93 10/09/24 07:16 Resp 16 10/09/24 07:16 BP 126/65 10/09/24 07:16 Pulse Ox 93 L 10/09/24 07:16 FiO2 Intake & Output 10/08/24 10/09/24 10/09/24 18:59 06:59 18:59 Intake Total 240 Output Total 1100 750 300 Balance -1100 -510 -300 Intake: Oral 240 Output: Urine 1100 750 300 Other: Voiding Method Urinal Urinal # Voids 2 3 # Bowel Movements 0 - Exam GENERAL DESCRIPTION: An elderly male lying in bed in no distress RESPIRATORY SYSTEM: Unlabored breathing , decreased breath sounds at bases HEART: S1 S2 regular rate and rhythm , ABDOMEN: Soft , no tenderness EXTREMITIES:Left foot TMA site well-approximated, small area of nonviable tissue. Good capillary refill. Ecchymosis to plantar aspect of foot per vascular surgery note - Labs CBC & Chem 7: 10/10/24 05:59 10/10/24 15:32 Labs: Abnormal Lab Results - Last 24 Hours (Table) 10/08/24 10/08/24 10/08/24 Range/Units 11:46 16:35 19:52 WBC (4.50-10.00) X 10*3/uL RBC (4.40-5.60) X 10*6/uL Hgb (13.0-17.0) g/dL Hct (39.6-50.0) % MPV (9.5-12.2) FL Immature Gran # (0.00-0.04) X 10*3/uL Neutrophils # (1.80-7.70) X 10*3/uL Monocytes # (0.20-1.00) X 10*3/uL Sodium (137-145) mmol/L Glucose (74-99) mg/dL POC Glucose (mg/dL) 343 H 274 H 251 H (70-110) mg/dL Calcium (8.4-10.2) mg/dL C-Reactive Protein (<1.0) mg/dL Total Protein (6.3-8.2) g/dL Albumin (3.5-5.0) g/dL 10/09/24 10/09/24 10/09/24 Range/Units 03:04 03:04 06:27 WBC 16.78 H (4.50-10.00) X 10*3/uL RBC 3.12 L (4.40-5.60) X 10*6/uL Hgb 9.2 L (13.0-17.0) g/dL Hct 27.6 L (39.6-50.0) % MPV 9.3 L (9.5-12.2) FL Immature Gran # 0.76 H (0.00-0.04) X 10*3/uL Neutrophils # 13.49 H (1.80-7.70) X 10*3/uL Monocytes # 1.18 H (0.20-1.00) X 10*3/uL Sodium 133 L (137-145) mmol/L Glucose 123 H (74-99) mg/dL POC Glucose (mg/dL) 211 H (70-110) mg/dL Calcium 8.0 L (8.4-10.2) mg/dL C-Reactive Protein 22.8 H (<1.0) mg/dL Total Protein 5.0 L (6.3-8.2) g/dL Albumin 2.3 L (3.5-5.0) g/dL Microbiology - Last 24 Hours (Table) 10/06/24 11:57 Blood Culture - Preliminary Blood 10/04/24 14:30 Anaerobic Culture - Final Foot - Left Assessment and Plan (1) Sepsis Current Visit: Yes Status: Acute Code(s): A41.9 - SEPSIS, UNSPECIFIED ORG ANISM SNOMED Code(s): 31607256 (2) Diabetic foot infection Current Visit: Yes Status: Acute Code(s): E11.628 - TYPE 2 DIABETES MELLITUS WITH OTHER SKIN COMPLICATIONS; L08.9 - LOCAL INFECTION OF THE SKIN AND SUBCUTANEOUS TISSUE, UNSP SNOMED Code(s): 288705022 (3) Gangrene of toe of left foot Current Visit: Yes Status: Acute Code(s): I96 - GANGRENE, NOT ELSEWHERE CLASSIFIED SNOMED Code(s): 46643358700431025 (4) Osteomyelitis Current Visit: No Status: Acute Code(s): M86.9 - OSTEOMYELITIS, UNSPECIFIED SNOMED Code(s): 06840337 (5) MSSA bacteremia Current Visit: Yes Status: Acute Code(s): R78.81 - BACTEREMIA; B95.61 - METHICILLIN SUSCEP STAPH INFCT CAUSING DIS CLASSD ELSWHR SNOMED Code(s): 776269305 Plan: 1patient presented hospital with sepsis in this patient who did have a fever tachycardia elevated white committee criteria for SIRS source is left diabetic foot infection with gangrene of the fourth toe and will need to cover for the po lymicrobial blanca associated with diabetic foot infection in this patient who did have previous history of MRSA as well as stenotrophomonas 2-patient with multiple antibiotic ALLERGIES that would limit the number of antibiotic safe to use 3-patient is status post left transmetatarsal amputation completed on 10/04/2024 4patient with MSSA bacteremia sourse is left diabetic foot infection, blood culture has been repeated which are so far negative 5patient did have a white count which is slightly concerning patient currently not running any fever vascular surgery note did mention some nonviable tissue and ecchymosis could be responsible for this elevated white count for now continue with the cefazolin and Flagyl repeat a CBC with a.m. lab Dictation was produced using [employer] dictation software. please excuse any grammatical, word or spelling errors. Time with Patient: Less than 30
--- NOTE | 2024-10-10 16:26 | P.PN ---
Subjective Progress Note Date: 10/10/24 Principal diagnosis: Reason for follow-up is left diabetic foot infection and bacteremia Patient is a 74-year-old lady with a past medical history of significant for Diabetes Mellitus, Deep Vein Thrombosis (DVT), Eye Disorder, GERD/Reflux, Hyperlipidemia, Hypertension, Prostate Disorder history of diabetic foot infection requiring amputation current smoker presenting to the hospital for evaluation of left foot toe discoloration. Patient is status post transmetatarsal amputation of the left foot completed on 10/04/2024. On today's evaluation that is 10/10/2024,the patient remains to be afebrile, patient is on room air not requiring supplemental oxygen and denies any shortness of breath no chest pain or cough.Patient denies having any nausea or vomiting, no abdominal pain and no diarrhea has been reported, denies any worsening pain to the left foot area. The patient white count is up to 17.04, creatinine 0.81 Objective - Vital Signs Vital signs: Vital Signs Temp 97.8 F 10/10/24 07:07 Pulse 83 10/10/24 07:07 Resp 18 10/10/24 07:07 BP 130/65 10/10/24 07:07 Pulse Ox 91 L 10/10/24 07:07 FiO2 Intake & Output 10/09/24 10/10/24 10/10/24 18:59 06:59 18:59 Intake Total 400 Output Total 725 550 600 Balance -325 -550 -600 Intake: Oral 400 Output: Urine 725 550 600 Other: Voiding Method Urinal Urinal # Voids 4 1 - Exam GENERAL DESCRIPTION: An elderly male lying in bed in no distress RESPIRATORY SYSTEM: Unlabored breathing , decreased breath sounds at bases HEART: S1 S2 regular rate and rhythm , ABDOMEN: Soft , no tenderness EXTREMITIES:Left foot TMA incision is intact however there is blackish discoloration to the incision as well as on the plantar aspect of his foot - Labs CBC & Chem 7: 10/10/24 05:59 10/10/24 15:32 Labs: Abnormal Lab Results - Last 24 Hours (Table) 10/09/24 10/09/24 10/09/24 Range/Units 16:09 17:58 20:30 WBC (4.50-10.00) 10*3/uL RBC (4.40-5.60) 10*6/uL Hgb (13.0-17.0) g/dL Hct (39.6-50.0) % MPV (9.5-12.2) fL Immature Gran # (0.00-0.04) 10*3/uL Neutrophils # (1.80-7.70) 10*3/uL Monocytes # (0.20-1.00) 10*3/uL Sodium (137-145) mmol/L Glucose (74-99) mg/dL POC Glucose (mg/dL) 404 H 263 H 183 H (70-110) mg/dL Calcium (8.4-10.2) mg/dL 10/10/24 10/10/24 10/10/24 Range/Units 05:59 05:59 06:20 WBC 17.04 H (4.50-10.00) 10*3/uL RBC 2.83 L (4.40-5.60) 10*6/uL Hgb 8.5 L D (13.0-17.0) g/dL Hct 25.0 L (39.6-50.0) % MPV 8.8 L (9.5-12.2) fL Immature Gran # 0.80 H (0.00-0.04) 10*3/uL Neutrophils # 13.48 H (1.80-7.70) 10*3/uL Monocytes # 1.42 H (0.20-1.00) 10*3/uL Sodium 131 L (137-145) mmol/L Glucose 113 H (74-99) mg/dL POC Glucose (mg/dL) 138 H (70-110) mg/dL Calcium 7.7 L (8.4-10.2) mg/dL 10/10/24 Range/Units 11:57 WBC (4.50-10.00) 10*3/uL RBC (4.40-5.60) 10*6/uL Hgb (13.0-17.0) g/dL Hct (39.6-50.0) % MPV (9.5-12.2) fL Immature Gran # (0.00-0.04) 10*3/uL Neutrophils # (1.80-7.70) 10*3/uL Monocytes # (0.20-1.00) 10*3/uL Sodium (137-145) mmol/L Glucose (74-99) mg/dL POC Glucose (mg/dL) 175 H (70-110) mg/dL Calcium (8.4-10.2) mg/dL Microbiology - Last 24 Hours (Table) 10/06/24 11:57 Blood Culture - Preliminary Blood Assessment and Plan (1) Sepsis Current Visit: Yes Status: Acute Code(s): A41.9 - SEPSIS, UNSPECIFIED ORGANISM SNOMED Code(s): 81094881 (2) Diabetic foot infection Current Visit: Yes Status: Acute Code(s): E11.628 - TYPE 2 DIABETES MELLITUS WITH OTHER SKIN COMPLICATIONS; L08.9 - LOCAL INFECTION OF THE SKIN AND SUBCUTANEOUS TISSUE, UNSP SNOMED Code(s): 883004080 (3) Gangrene of toe of left foot Current Visit: Yes Status: Acute Code(s): I96 - GANGRENE, NOT ELSEWHERE CLASSIFIED SNOMED Code(s): 31255696353010477 (4) Osteomyelitis Current Visit: No Status: Acute Code(s): M86.9 - OSTEOMYELITIS, UNSPECIFIED SNOMED Code(s): 04541015 (5) MSSA bacteremia Current Visit: Yes Status: Acute Code(s): R78.81 - BACTEREMIA; B95.61 - METHICILLIN SUSCEP STAPH INFCT CAUSING DIS CLASSD ELSWHR SNOMED Code(s): 156938267 Plan: 1patient presented hospital with sepsis in this patient who did have a fever tachycardia elevated white committee criteria for SIRS source is left diabetic foot infection with gangrene of the fourth toe and will need to cover for the polymicrobial blanca associated with diabetic foot infection in this patient who did have previous history of MRSA as well as stenotrophomonas 2-patient with multiple antibiotic ALLERGIES that would limit the number of antibiotic safe to use 3-patient is status post left transmetatarsal amputation completed on 10/04/2024 4patient with MSSA bacteremia sourse is left diabetic foot infection, blood culture has been repeated which are so far negative 5patient did have worsening leukocytosis more like related to the left foot ischemia I have detailed discussion with the patient who did agree to go for the angiogram and possible revascularization to save his foot this was also discussed with the RETORT PRESS OPERATOR for vascular surgery to arrange for the angiogram during this hospital stay for now continue with the cefazolin and Flagyl Dictation was produced using dragon dictation software. please excuse any grammatical, word or spelling errors.
[2024-10-10 16:55] LABS: Glucose,Whole Blood 198 mg/dL (70-110)
[2024-10-10 20:31] LABS: Glucose,Whole Blood 382 mg/dL (70-110)
[2024-10-11 06:29] LABS: Glucose,Whole Blood 147 mg/dL (70-110)
[2024-10-11 07:14] LABS: HCT 24.7 % (39.6-50.0); HGB 8.3 g/dL (13.0-17.0); MCH 29.5 pg (27.0-32.0); MCHC 33.6 g/dL (32.0-37.0); MCV 87.9 fL (80.0-97.0); Platelet Count 375 10*3/uL (140-440); RBC 2.81 10*6/uL (4.40-5.60); RDW 12.6 % (11.5-14.5); WBC 14.45 10*3/uL (4.50-10.00)
[2024-10-11 07:47] LABS: African American GFR (CKD) >90 (>60 ml/min/1.73 sqM); Anion Gap 4 mmol/L; Blood Urea Nitrogen 14 mg/dL (9-20); Carbon Dioxide 30 mmol/L (22-30); Chloride 100 mmol/L (98-107); Glucose 127 mg/dL (74-99); Non-African American GFR(CKD) 88 (>60 ml/min/1.73 sqM); Sodium 134 mmol/L (137-145)
[2024-10-11 09:26] LABS: Lymphocytes # (M) 1.59 k/uL (1.0-4.8); Monocytes # (M) 0.43 k/uL (0-1.0); Neutrophils # (M) 12.43 k/uL (1.3-7.7); Neutrophils % (M) 86 %; Nucleated Red Blood Cells 0 /100 WBC (0-0); Total Cells Counted 100
--- NOTE | 2024-10-11 10:51 | CA ---
Transthoracic Echo Report Name: Jon Son Age: 74 Gender: M : 1950 Exam Date: 10/10/2024 14:36 Exam Location: [facility] Ht (in): 73 Wt (lb): 189 Ordering Physician: Elias Florentino MD Attending/Referring Phys: Conveyor Maintenance Mechanic Monika Diggs RDCS Procedure CPT: Indications: bacteremia Cardiac Hx: Technical Quality: Very technically difficult study Contrast 1: Definity Total Dose (mL): 6 Contrast 2: Total Dose (mL): MEASUREMENTS (Male / Female) Normal Values 2D ECHO LV Diastolic Diameter PLAX 4.1 cm 4.2 - 5.9 / 3.9 - 5.3 cm LV Systolic Diameter PLAX 3.0 cm IVS Diastolic Thickness 0.7 cm 0.6 - 1.0 / 0.6 - 0.9 cm LVPW Diastolic Thickness 0.8 cm 0.6 - 1.0 / 0.6 - 0.9 cm LV Relative Wall Thickness 0.4 LVOT Diameter 2.1 cm LV Diastolic Volume MOD BP 154.8 cm??? 67 - 155 / 56 - 104 cm??? LV Systolic Volume MOD BP 61.6 cm??? 22 - 58 / 19 - 49 cm??? LV Ejection Fraction MOD BP 60.2 % >= 55 % LV Cardiac Index MOD BP 4646.3 cm???/min???m??? LV Diastolic Volume MOD 4C 125.7 cm??? LV Systolic Volume MOD 4C 62.0 cm??? LV Ejection Fraction MOD 4C 50.7 % LV Cardiac Index MOD 4C 3173.4 cm???/min???m??? LV Diastolic Length 4C 8.3 cm LV Systolic Length 4C 6.8 cm LV Diastolic Volume MOD 2C 172.8 cm??? LV Systolic Volume MOD 2C 60.1 cm??? LV Ejection Fraction MOD 2C 65.2 % LV Cardiac Index MOD 2C 5615.1 cm???/min???m??? LV Diastolic Length 2C 9.2 cm LV Systolic Length 2C 6.9 cm DOPPLER AV Peak Velocity 217.5 cm/s AV Peak Gradient 18.9 mmHg AV Mean Velocity 162.3 cm/s AV Mean Gradient 11.7 mmHg AV Velocity Time Integral 34.6 cm LVOT Peak Velocity 108.0 cm/s LVOT Peak Gradient 4.7 mmHg LVOT Velocity Time Integral 19.3 cm LVOT Stroke Volume 67.4 cm??? LVOT Stroke Volume Index 32.1 ml/m??? LVOT Cardiac Index 3357.3 cm???/min???m??? AV Area Cont Eq vti 1.9 cm??? AV Area Cont Eq pk 1.7 cm??? MV Area PHT 3.9 cm??? Mitral E Point Velocity 75.8 cm/s Mitral A Point Velocity 83.2 cm/s Mitral E to A Ratio 0.9 MV Deceleration Time 196.6 ms PV Peak Velocity 109.6 cm/s PV Peak Gradient 4.8 mmHg FINDINGS Left Ventricle Left ventricular ejection fraction is estimated at 55 % with beat to beat variability. Mildly increased left ventricular systolic volume. Left ventricular wall thickness normal. No obvious regional wall motion abnormalities. Right Ventricle Right ventricle not well visualized. Normal right ventricular global systolic function. Unable to estimate the right ventricular systolic pressure. Right Atrium Right atrium not well visualized. Left Atrium Normal left atrial size. Mitral Valve Structurally normal mitral valve. No mitral stenosis, regurgitation or prolapse. Aortic Valve Aortic valve not well visualized. No aortic valve stenosis or regurgitation. Tricuspid Valve Structurally normal tricuspid valve. No tricuspid stenosis. Trace tricuspid regurgitation. Pulmonic Valve Pulmonic valve not well visualized. No pulmonic stenosis. No pulmonic regurgitation. Pericardium Trace pericardial effusion. Aorta Aortic annulus normal. Mildly dilated proximal ascending aorta (tube). CONCLUSIONS Technically difficult study for interpretation Normal LV systolic function Poorly visualized intracardiac valves Trace pericardial effusion Previewed by: Dr. Boone Ramirez MD (Electronically Signed) Final Date: 11 October 2024 10:50
--- NOTE | 2024-10-11 11:13 | P.PN ---
Subjective Progress Note Date: 10/11/24 74-year-old male with PMH of rrt-lyzxsqh-yxrkfopfs diabetes mellitus, hypertension, hyperlipidemia, previous DVT approximately 20 years ago which was treated with heparin and BPH presented emergency room for concerns for a foot infection. States this has been bugging him for a few days and progressively w orsening, particularly with ambulation. He does have a history of infection in the first and second digit of the left foot, with previous culture positive for Pseudomonas as well as MRSA. He endorses some chills over that time. However denies any confirmed fevers, nausea, vomiting, changes in appetite. 10/04 - He is seen and examined at bedside this morning, now on the 4th floor. Overnight he had worsening pain, for which she received Dilaudid which she stated helped more than the morphine he had previously been receiving. He was also noted to have 686 cc of urine on his bladder scan, however did not want to have a khan catheter placed. He was noted to have some better urine production throughout the night and a repeat bladder scan was done early this morning which showed ~200 cc of urine. 10/05 - He is seen and examined at bedside this morning. He underwent transmetatarsal amputation of the left foot yesterday. He had no acute events overnight. Continues to endorse pain in his left calf area, especially when squeezed. Discussed with patient likely secondary to extensive peripheral artery disease, and symptoms are likely claudication. He had concern was a DVT, as it was similar to something it experience before. Previous duplex ultrasound showed no signs of DVT, D-dimer tested today showed to be 0.76. Initiate on cilostazol 100 mg twice daily for claudication-like pain. 10/06 - ongoing pain per pt, but appears comfortable on exam. pain medication adjusted yesterday with addition of gabapentin, lidocaine patch, increase of opiate medication 10/07 - He is seen and examined at bedside this morning. Continues to complain of pain, while appearing to be comfortable on exam. Will undergo angiogram with revascularization with vascular surgery tomorrow morning. Has no acute complaints this morning, continues to tolerate diet well as well as no difficulties or changes in bowel movements and urinary function. 10/08 - He is seen and examined at bedside this morning. He has no acute complaints at this time, stating that his pain is well-controlled when he receives medication. He was originally scheduled to undergo an angiogram today, however proceeded to decline this morning. He states that someone told him it may not help very much, however he is unsure of who this was. 10/09 - He is seen and examined at bedside this morning. Without acute complaints at this time. Repeat blood cultures been negative for 48 hours, midline will be inserted today for his IV antibiotics upon discharge. Awaiting full confirmation from the [facility], where scripts have been sent. 10/10 - He is seen and examined at bedside this morning. Did spike a small fever late last night at 100.6 F, has remained tachycardic intermittently and CBC shows leukocytosis that has persisted with an increase over the past couple of days. Echocardiogram ordered to further evaluate for the possibility of endocarditis. He continues to endorse the same intermittent throbbing pain in his left calf, however otherwise has no acute complaints today. 10/11 - He is seen and examined at bedside this morning. No acute complaints this morning, however continues to endorse intermittent pain in his lower leg on the left, most frequently on the lateral aspect of his ankle. After discussion with infectious disease, the patient is now agreeable to undergo angiogram. This is a procedure for which there is no urgency, however while he remains in the hospital it would likely be completed today. Currently awaiting to undergo echocardiogram for further evaluation of possible endocarditis secondary to continuing elevation of his white blood cell count despite being on continuous IV antibiotics. REVIEW OF SYSTEMS: Pertinent positives and negatives noted in HPI. Physical Exam: General: nontoxic, no distress, appears at stated age. Unkempt in appearance Derm: warm, dry, intact Head: atraumatic, normocephalic, symmetric Eyes: EOMI, anicteric sclera Mouth: no lip lesion, mucus membranes moist Cardiovascular: S1 S2 reg, no murmur, rubs, or gallops Lungs: CTA bilateral, no rales, no accessory muscle use; diminished bilaterally Abdominal: soft, non-tender to palpataion, no appreciable organomegaly Extremities: no gross muscle atrophy, no edema, no contractures; left foot in dressing Neuro: Alert, Oriented, CNII-XII grossly intact, gait normal Psych: appropriate affect Data Received Today: Labs: WBCs 14.5, hemoglobin 8.3, hematocrit 24.7, platelet 375; sodium 134, potassium 4.0, BUN 14, creatinine 0.79, calcium 8.0, magnesium 2.0 Imagining: Echocardiogram completed on 10/10/24 showed normal left ventricular systolic function, poorly visualized intracardiac valves and trace pericardial effusion Assessment and plan 74-year-old male with PMH of rdn-gogvule-unrndlsfl diabetes mellitus, hypertens ion, hyperlipidemia, previous DVT proximately 20 years ago treated with heparin, multiple previous foot infections with history of Pseudomonas and MRSA and BPH presented emergency room for concerns for a foot infection. #Sepsis, likely secondary to diabetic foot disease and osteomyelitis of the left foot #Left foot, fourth digit gangrene #Left foot cellulitis -History of MRSA and Pseudomonas infection -Continue with cefazolin 2 g every 8 hours and Flagyl 500 mg every 8 hours -As per infectious disease, [facility] course of cefazolin 2 g every 8 hours for a total duration of 2 weeks, final day being 10/18/2024 -Tolerating oral intake well; no maintenance fluids currently -Midline has been placed on 10/09/24 -Underwent transmetatarsal amputation of the left foot (10/04/2024) -ID following -Echocardiogram read and reviewed, evidence of trace pericardial effusion #History of DVT, not currently on anticoagulation #Atherosclerotic disease lower extremities, with symptoms of possible claudication v neuropathic pain -Resume home aspirin 81 mg daily, and Lipitor 80 mg daily -Underwent transmetatarsal amputation of the left foot -Continue with gabapentin 100 mg 3 times daily -Continue with cilostazol 100 mg BID -Continue with current pain management -After further discussion with infectious disease, he is now agreeable to undergo angiogram #Ybp-vopacze-pcorsabgi type 2 diabetes mellitus -Accu-Cheks ACHS -Sliding scale insulin -Hemoglobin A1c 8.6 -Continue Lantus 10 units nightly, an additional 3 units ACHS -Monitor for hypoglycemia #Anemia of chronic disease, likely mixed micro and macrocytic with evidence of iron deficiency -Continue monitor CBC -Iron studies: Iron 9, TIBC 148, 6.08% saturation, transferrin 106, ferritin 338, reticulocyte count 0.99 - reticulocyte index 0.5, indicating inadequate response -Initiate on ferrous sulfate 325 mg daily, multivitamin and folic acid -Vitamin B12 206, folate 7.70 #Hypovolemic hyponatremia, improved -Sodium 131 -Monitor BMP -Given 1 L bolus normal saline, will recheck BMP #Hypertension -Hold home Cozaar to maintain permissive hypertension in the setting of sepsis #Hyperlipidemia -Continue home Lipitor 80 mg daily #BPH -Continue home Flomax 0.8 mg nightly GI prophylaxis: Protonix 40 mg daily DVT prophylaxis: Heparin 5000 unit SQ every 12 hours Code status: Full code F: None E: Replete as needed N: N.p.o. after midnight A: Ambulatory at baseline Anticipated discharge place: Pending clinical course Anticipated discharge time: Pending clinical course Dictation was produced using [employer] dictation software. please excuse any grammatical, word or spelling errors. Siva Florentino MD PGY-1 IM I have seen and evaluated the patient today. Discussed with the resident and agree with the residents finding and plan as documented in the resident's note. Changes highlighted in blue font. Objective - Vital Signs Vital signs: Vital Signs Temp 98.2 F 10/11/24 01:46 Pulse 66 10/11/24 01:46 Resp 18 10/11/24 01:46 BP 116/72 10/11/24 01:46 Pulse Ox 94 L 10/11/24 01:46 FiO2 Intake & Output 10/10/24 10/11/24 10/11/24 18:59 06:59 18:59 Output Total 1000 750 Balance -1000 -750 Output: Urine 1000 750 Other: Voiding Method Urinal Urinal # Voids 4 - Labs CBC & Chem 7: 10/11/24 06:18 10/11/24 06:18 Labs: Abnormal Lab Results - Last 24 Hours (Table) 10/10/24 10/10/24 10/10/24 Range/Units 11:57 15:32 16:52 Sodium 131 L (137-145) mmol/L Glucose 198 H (74-99) mg/dL POC Glucose (mg/dL) 175 H 198 H (70-110) mg/dL Calcium 7.8 L (8.4-10.2) mg/dL 10/10/24 10/11/24 Range/Units 20:29 06:28 Sodium (137-145) mmol/L Glucose (74-99) mg/dL POC Glucose (mg/dL) 382 H 147 H (70-110) mg/dL Calcium (8.4-10.2) mg/dL
[2024-10-11] MEDS: fentaNYL (PF) 50 MCG/1 ML VIAL IVP ONE (11:50)
[2024-10-11] MEDS: LIDOCAINE 1% INJ 10MG/ML (20 ML MDV) SQ ONE (11:50)
[2024-10-11] MEDS: MIDAZOLAM 2 MG/2 ML VIAL IVP ONE (11:50)
[2024-10-11] MEDS: SODIUM CHLORIDE 0.9% 500 ML 500 ML IV ONE (12:54)
[2024-10-11] MEDS: IOPAMIDOL-370 100ML BTL INJ ONE (12:54)
[2024-10-11 13:30] LABS: Glucose,Whole Blood 124 mg/dL (70-110)
--- NOTE | 2024-10-11 15:06 | P.OP ---
Date of Procedure: 10/11/24 Preoperative Diagnosis: Gangrene left foot, status post transmetatarsal amputation left foot. 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 Postoperative Diagnosis: Same. Procedure(s) Performed: 1: Ultrasound-guided cannulation right femoral artery. 2: Abdominal aortogram with runoffs of the pelvis. 3: Selective catheterization left superficial femoral artery. 4: Left femoral angiogram. 5: Atherectomy left superficial femoral artery. 6: Balloon dilation left superficial femoral artery. Implants: None. Anesthesia: MAC (With multiple doses of Versed and fentanyl.), local Surgeon: Dagoberto Alicea Estimated Blood Loss (ml): 25 Urine output (ml): 0 Pathology: none sent Condition: stable Disposition: no change Indications for Procedure: Patient is a 74-year-old male with longstanding history of tobacco abuse and diabetes mellitus status post amputation of the 1st and 2nd toes of the left foot. He presented earlier this week to the hospital with gangrenous ischemic changes of the left foot. Physical examination revealed femoral pulse to be intact while the popliteal and pedal pulses were absent on the left. The patient did undergo CT angiogram which demonstrated multilevel left superficial femoral as well as tibial artery occlusive disease. Patient did undergo transmetatarsal amputation and to improve the arterial flow to the lower extremities patient is now offered angiogram with possible percutaneous intervention. The procedure, risk and benefits were discussed. All questions were answered to patient's satisfaction. Consent form was signed. Description of Procedure: Patient brought to the cardiac catheterization suite. Both groins were sterilely prepped and draped in usual manner. Utilizing ultrasound the right common femoral artery was identified easily and 1% Xylocaine was utilized for local anesthesia overlying the femoral artery. Through this anesthetized area with the aid of ultrasound the tissues overlying the femoral artery were localized with 1% Xylocaine. Following this with ultrasound guidance a multipurpose needle was utilized to cannulate the artery. Once cannulated a soft guidewire was advanced into the iliac artery. The needle was withdrawn and a 6 German sheath was placed. Guidewire and pigtail combination were advanced into the abdominal aorta. Guidewire was withdrawn and abdominal aortogram was performed. Imaging of the iliac segments bilaterally was also performed. This demonstrated single renal arteries bilaterally without evidence of renal artery stenosis. The aorta itself was widely patent with minimal atherosclerotic change. Both common and external iliac arteries were nearly normal without much in the way of atherosclerotic change noted. The guidewire and catheter combination was once again utilized to cannulate the origin of the left iliac artery. A glide advantage guidewire was advanced through the catheter into the superficial femoral artery. The 6 German sheath was exchanged for 6 German up and over sheath and positioned in the proximal left superficial femoral artery. Left femoral angiogram was performed which demonstrated multiple areas of varying degrees of stenosis of the proximal and mid superficial femoral artery. Distally 2 areas of more severe stenosis were noted. These were relatively focal in length measuring approximately 2 to 3 cm in length each, 1 of which was a subtotal occlusion. Under roadmapping guidance a 0.014 inch guidewire was advanced through the the areas of stenosis. The 2 most distal lesions were thought to be most appropriate for atherectomy. Sanlorenzo atherectomy system was utilized to atherectomized these 2 segments. Completion angiogram demonstrated improved flow characteristics although significant residual stenosis was noted. As such a 5 mm x 120 mm drug-eluting balloon was utilized to balloon dilate these 2 segments. Completion angiogram demonstrated good cosmetic result with no flow-limiting lesion noted. To address the mid and proximal superficial femoral artery stenosis a 5 mm x 200 mm drug-eluting balloon was utilized to balloon dilate the mid and proximal SFA segments. Completion angiogram demonstrated near complete resolution of the previously identified stenoses. A small area of dissection proximally was noted and this was controlled with a 5 mm balloon inflated for approximately 2 to 3 minutes at a low pressure. Completion angiogram demonstrated resolution of the dissection. With the above findings noted the sheath was exchanged over the guidewire. The up and over sheath was exchanged for a 6 German sheath in the puncture of the femoral artery was closed with an Angio-Seal device. Patient tolerated the procedure well and was returned to his room satisfaction in stable condition. Total fluoroscopy time: 13.6 minutes. Total moderate conscious sedation time: 62 minutes. Total contrast volume utilized 50 mL of Isovue.
--- NOTE | 2024-10-11 15:52 | P.PN ---
Subjective Progress Note Date: 10/11/24 Principal diagnosis: Reason for follow-up is left diabetic foot infection and bacteremia Patient is a 74-year-old lady with a past medical history of significant for Diabetes Mellitus, Deep Vein Thrombosis (DVT), Eye Disorder, GERD/Reflux, Hyperlipidemia, Hypertension, Prostate Disorder history of diabetic foot infection requiring amputation current smoker presenting to the hospital for evaluation of left foot toe discoloration. Patient is status post transmetatarsal amputation of the left foot completed on 10/04/2024.Patient is status post angiogram and had left superficial femoral artery arthrectomy and balloon dilatation of the left superficial femoral artery procedure completed on 10/11/2024. On today's evaluation that is 10/11/2024, the patient continues to be afebrile, the patient is on room air and breathing comfortably, the Pt denies having any chest pain or cough, the patient denies having any abdominal pain no vomiting or any diarrhea or worsening pain to the left lower extremity. Patient white count is down to 14.45, creatinine 0.79 blood culture repeat has been negative Objective - Vital Signs Vital signs: Vital Signs Temp 98.2 F 10/11/24 07:34 Pulse 95 10/11/24 07:34 Resp 17 10/11/24 07:34 BP 123/63 10/11/24 07:34 Pulse Ox 95 10/11/24 08:42 FiO2 Intake & Output 10/10/24 10/11/24 10/11/24 18:59 06:59 18:59 Intake Total 250 Output Total 1000 750 300 Balance -1000 -750 -50 Intake: IV 250 Output: Urine 1000 750 300 Other: Voiding Method Urinal Urinal Urinal # Voids 4 - Exam GENERAL DESCRIPTION: An elderly male lying in bed in no distress RESPIRATORY SYSTEM: Unlabored breathing , decreased breath sounds at bases HEART: S1 S2 regular rate and rhythm , ABDOMEN: Soft , no tenderness EXTREMITIES:Left foot wound is currently dressed - Labs CBC & Chem 7: 10/11/24 06:18 10/11/24 06:18 Labs: Abnormal Lab Results - Last 24 Hours (Table) 10/10/24 10/10/24 10/10/24 Range/Units 15:32 16:52 20:29 WBC (4.50-10.00) 10*3/uL RBC (4.40-5.60) 10*6/uL Hgb (13.0-17.0) g/dL Hct (39.6-50.0) % MPV (9.5-12.2) fL Immature Gran # (0.00-0.04) 10*3/uL Neutrophils # (Manual) (1.3-7.7) k/uL Sodium 131 L (137-145) mmol/L Glucose 198 H (74-99) mg/dL POC Glucose (mg/dL) 198 H 382 H (70-110) mg/dL Calcium 7.8 L (8.4-10.2) mg/dL 10/11/24 10/11/24 10/11/24 Range/Units 06:18 06:18 06:28 WBC 14.45 H (4.50-10.00) 10*3/uL RBC 2.81 L (4.40-5.60) 10*6/uL Hgb 8.3 L (13.0-17.0) g/dL Hct 24.7 L (39.6-50.0) % MPV 9.0 L (9.5-12.2) fL Immature Gran # 0.87 H (0.00-0.04) 10*3/uL Neutrophils # (Manual) 12.43 H (1.3-7.7) k/uL Sodium 134 L (137-145) mmol/L Glucose 127 H (74-99) mg/dL POC Glucose (mg/dL) 147 H (70-110) mg/dL Calcium 8.0 L (8.4-10.2) mg/dL Assessment and Plan (1) Sepsis Current Visit: Yes Status: Acute Code(s): A41.9 - SEPSIS, UNSPECIFIED ORGANISM SNOMED Code(s): 33023622 (2) Diabetic foot infection Current Visit: Yes Status: Acute Code(s): E11.628 - TYPE 2 DIABETES MELLITUS WITH OTHER SKIN COMPLICATIONS; L08.9 - LOCAL INFECTION OF THE SKIN AND SUBCUTANEOUS TISSUE, UNSP SNOMED Code(s): 451927479 (3) Gangrene of toe of left foot Current Visit: Yes Status: Acute Code(s): I96 - GANGRENE, NOT ELSEWHERE CLASSIFIED SNOMED Code(s): 45894607195702029 (4) Osteomyelitis Current Visit: No Status: Acute Code(s): M86.9 - OSTEOMYELITIS, UNSPECIFIED SNOMED Code(s): 54920395 (5) MSSA bacteremia Current Visit: Yes Status: Acute Code(s): R78.81 - BACTEREMIA; B95.61 - METHICILLIN SUSCEP STAPH INFCT CAUSING DIS CLASSD ELSWHR SNOMED Code(s): 106999448 Plan: 1patient presented hospital with sepsis in this patient who did have a fever tachycardia elevated white committee criteria for SIRS source is left diabetic foot infection with gangrene of the fourth toe and will need to cover for the polymicrobial blanca associated with diabetic foot infection in this patient who did have previous history of MRSA as well as stenotrophomonas 2-patient with multiple antibiotic ALLERGIES that would limit the number of antibiotic safe to use 3-patient is status post left transmetatarsal amputation completed on 10/04/2024 4patient with MSSA bacteremia sourse is left diabetic foot infection, blood culture has been repeated which are so far negative 5patient is status post angiogram as well as arthrectomy and balloon genitoplasty of superficial femoral artery completed on 10/11/2024 hopefully will help in the healing of his left foot. 6patient to continue with the cefazolin and Flagyl and monitor clinical course closely Dictation was produced using [employer] dictation software. please excuse any grammatical, word or spelling errors. Time with Patient: Less than 30
[2024-10-11 17:51] LABS: Glucose,Whole Blood 198 mg/dL (70-110)
[2024-10-11 20:41] LABS: Glucose,Whole Blood 193 mg/dL (70-110)
[2024-10-12 06:15] LABS: Basophils # (A) 0.02 10*3/uL (0.00-0.10); Basophils % (A) 0.1 %; Eosinophils # (A) 0.07 10*3/uL (0.04-0.35); Eosinophils % (A) 0.5 %; HCT 23.3 % (39.6-50.0); HGB 7.8 g/dL (13.0-17.0); Lymphocytes # (A) 0.88 10*3/uL (0.90-5.00); Lymphocytes % (A) 6.2 %; MCH 29.8 pg (27.0-32.0); MCHC 33.5 g/dL (32.0-37.0); MCV 88.9 fL (80.0-97.0); Mean Platelet Volume 8.8 fL (9.5-12.2); Monocytes # (A) 0.94 10*3/uL (0.20-1.00); Monocytes % (A) 6.6 %; Neutrophils # (A) 11.67 10*3/uL (1.80-7.70); Neutrophils % (A) 82.1 %; Platelet Count 399 10*3/uL (140-440); RBC 2.62 10*6/uL (4.40-5.60); WBC 14.22 10*3/uL (4.50-10.00)
[2024-10-12 06:20] LABS: Glucose,Whole Blood 120 mg/dL (70-110)
[2024-10-12 06:26] LABS: African American GFR (CKD) >90 (>60 ml/min/1.73 sqM); Anion Gap 5 mmol/L; Blood Urea Nitrogen 14 mg/dL (9-20); Calcium 7.7 mg/dL (8.4-10.2); Carbon Dioxide 28 mmol/L (22-30); Chloride 99 mmol/L (98-107); Glucose 93 mg/dL (74-99); Magnesium 1.9 mg/dL (1.6-2.3); Non-African American GFR(CKD) 88 (>60 ml/min/1.73 sqM); Potassium 4.3 mmol/L (3.5-5.1); Sodium 132 mmol/L (137-145)
--- NOTE | 2024-10-12 11:39 | P.PN ---
Subjective Progress Note Date: 10/12/24 74-year-old male with PMH of [id number]-[id number] diabetes mellitus, hypertension, hyperlipidemia, previous DVT approximately 20 years ago which was treated with heparin and BPH presented emergency room for concerns for a foot infection. States this has been bugging him for a few days and progressively w orsening, particularly with ambulation. He does have a history of infection in the first and second digit of the left foot, with previous culture positive for Pseudomonas as well as MRSA. He endorses some chills over that time. However denies any confirmed fevers, nausea, vomiting, changes in appetite. 10/04 - He is seen and examined at bedside this morning, now on the 4th floor. Overnight he had worsening pain, for which she received Dilaudid which she stated helped more than the morphine he had previously been receiving. He was also noted to have 686 cc of urine on his bladder scan, however did not want to have a khan catheter placed. He was noted to have some better urine production throughout the night and a repeat bladder scan was done early this morning which showed ~200 cc of urine. 10/05 - He is seen and examined at bedside this morning. He underwent transmetatarsal amputation of the left foot yesterday. He had no acute events overnight. Continues to endorse pain in his left calf area, especially when squeezed. Discussed with patient likely secondary to extensive peripheral artery disease, and symptoms are likely claudication. He had concern was a DVT, as it was similar to something it experience before. Previous duplex ultrasound showed no signs of DVT, D-dimer tested today showed to be 0.76. Initiate on cilostazol 100 mg twice daily for claudication-like pain. 10/06 - ongoing pain per pt, but appears comfortable on exam. pain medication adjusted yesterday with addition of gabapentin, lidocaine patch, increase of opiate medication 10/07 - He is seen and examined at bedside this morning. Continues to complain of pain, while appearing to be comfortable on exam. Will undergo angiogram with revascularization with vascular surgery tomorrow morning. Has no acute complaints this morning, continues to tolerate diet well as well as no difficulties or changes in bowel movements and urinary function. 10/08 - He is seen and examined at bedside this morning. He has no acute complaints at this time, stating that his pain is well-controlled when he receives medication. He was originally scheduled to undergo an angiogram today, however proceeded to decline this morning. He states that someone told him it may not help very much, however he is unsure of who this was. 10/09 - He is seen and examined at bedside this morning. Without acute complaints at this time. Repeat blood cultures been negative for 48 hours, midline will be inserted today for his IV antibiotics upon discharge. Awaiting full confirmation from the [facility], where scripts have been sent. 10/10 - He is seen and examined at bedside this morning. Did spike a small fever late last night at 100.6 F, has remained tachycardic intermittently and CBC shows leukocytosis that has persisted with an increase over the past couple of days. Echocardiogram ordered to further evaluate for the possibility of endocarditis. He continues to endorse the same intermittent throbbing pain in his left calf, however otherwise has no acute complaints today. 10/11 - He is seen and examined at bedside this morning. No acute complaints this morning, however continues to endorse intermittent pain in his lower leg on the left, most frequently on the lateral aspect of his ankle. After discussion with infectious disease, the patient is now agreeable to undergo angiogram. This is a procedure for which there is no urgency, however while he remains in the hospital it would likely be completed today. Currently awaiting to undergo echocardiogram for further evaluation of possible endocarditis secondary to continuing elevation of his white blood cell count despite being on continuous IV antibiotics. 10/12 - He is seen and examined at bedside this morning, now on the 6th floor. He underwent angiogram yesterday in which atherectomy, drug-eluting balloon were placed. He tolerated the procedure well, and had no discomfort noted following the procedure. He has no acute complaints morning, stating he is very happy that the pain is taken care of thus far. REVIEW OF SYSTEMS: Pertinent positives and negatives noted in HPI. Physical Exam: General: nontoxic, no distress, appears at stated age. Unkempt in appearance Derm: warm, dry, intact Head: atraumatic, normocephalic, symmetric Eyes: EOMI, anicteric sclera Mouth: no lip lesion, mucus membranes moist Cardiovascular: S1 S2 reg, no murmur, rubs, or gallops Lungs: CTA bilateral, no rales, no accessory muscle use; diminished bilaterally Abdominal: soft, non-tender to palpataion, no appreciable organomegaly Extremities: no gross muscle atrophy, no edema, no contractures; left foot in dressing Neuro: Alert, Oriented, CNII-XII grossly intact, gait normal Psych: appropriate affect Data Received Today: Labs: WBCs 14.22, hemoglobin 7.8, hematocrit 23.3, platelet 399; sodium 132, potassium 4.3, BUN 14, creatinine 0.80, calcium 7.7, magnesium 1.9 Imagining: No new imaging today Assessment and plan 74-year-old male with PMH of [id number]-ibmtzmfxi diabetes mellitus, hypertension, hyperlipidemia, previous DVT proximately 20 years ago treated with heparin, multiple previous foot infections with history of Pseudomonas and MRSA and BPH presented emergency room for concerns for a foot infection. #Sepsis, likely secondary to diabetic foot disease and osteomyelitis of the left foot #Left foot, fourth digit gangrene #Left foot cellulitis -History of MRSA and Pseudomonas infection -Continue with cefazolin 2 g every 8 hours and Flagyl 500 mg every 8 hours -As per infectious disease, [facility] course of cefazolin 2 g every 8 hours for a total duration of 2 weeks, final day being 10/18/2024 -Tolerating oral intake well; no maintenance fluids currently -Midline has been placed on 10/09/24 -Underwent transmetatarsal amputation of the left foot (10/04/2024) -ID following -Echocardiogram read and reviewed, evidence of trace pericardial effusion #History of DVT, not currently on anticoagulation #Atherosclerotic disease lower extremities, with symptoms of possible claudication v neuropathic pain -Resume home aspirin 81 mg daily, and Lipitor 80 mg daily -Underwent transmetatarsal amputation of the left foot -Continue with gabapentin 100 mg 3 times daily -Continue with cilostazol 100 mg BID -Continue with current pain management -Underwent angiogram 10/11/2024 with atherectomy and placement of drug-eluting balloons #Zzu-kfnixba-gsdiplcfj type 2 diabetes mellitus -Accu-Cheks ACHS -Sliding scale initiated -Hemoglobin A1c 8.6 -Continue with Lantus 10 units nightly, an additional 3 units ACHS -Monitor for hypoglycemia #Anemia of chronic disease, likely mixed micro and macrocytic with evidence of iron deficiency -Continue monitor CBC -Iron studies: Iron 9, TIBC 148, 6.08% saturation, transferrin 106, ferritin 338, reticulocyte count 0.99 - reticulocyte index 0.5, indicating inadequate response -Initiate on ferrous sulfate 325 mg daily, multivitamin and folic acid -Vitamin B12 206, folate 7.70 #Hypovolemic hyponatremia -Sodium 132 -Will receive 1L NS bolus today -Continue to monitor sodium closely -Monitor BMP #Hypertension -Hold home Cozaar to maintain permissive hypertension in the setting of sepsis #Hyperlipidemia -Continue home Lipitor 80 mg daily #BPH -Continue home Flomax 0.8 mg nightly GI prophylaxis: Protonix 40 mg daily DVT prophylaxis: Heparin 5000 unit SQ every 12 hours Code status: Full code F: None E: Replete as needed N: Consistent carbohydrate, heart healthy A: Ambulatory at baseline Anticipated discharge place: Pending clinical course Anticipated discharge time: Pending clinical course Dictation was produced using [employer] dictation software. please excuse any grammatical, word or spelling errors. Siva Florentino MD PGY-1 IM I have seen and evaluated the patient today. Discussed with the resident and agree with the residents finding and plan as documented in the resident's note. Changes highlighted in blue font. Objective - Vital Signs Vital signs: Vital Signs Temp 98.5 F 10/12/24 00:34 Pulse 104 H 10/12/24 00:34 Resp 19 10/12/24 00:34 BP 112/55 10/12/24 00:34 Pulse Ox 94 L 10/12/24 00:34 FiO2 Intake & Output 10/11/24 10/11/24 10/12/24 06:59 18:59 06:59 Intake Total 568 Output Total 750 1075 520 Balance -750 -507 -520 Intake: IV 450 Oral 118 Output: Urine 750 1075 520 Other: Voiding Method Urinal Urinal # Voids 4 2 - Labs CBC & Chem 7: 10/12/24 04:31 10/12/24 04:31 Labs: Abnormal Lab Results - Last 24 Hours (Table) 10/11/24 10/11/24 10/11/24 Range/Units 06:18 06:18 13:19 WBC 14.45 H (4.50-10.00) 10*3/uL RBC 2.81 L (4.40-5.60) 10*6/uL Hgb 8.3 L (13.0-17.0) g/dL Hct 24.7 L (39.6-50.0) % MPV 9.0 L (9.5-12.2) fL Immature Gran # 0.87 H (0.00-0.04) 10*3/uL Neutrophils # (1.80-7.70) 10*3/uL Neutrophils # (Manual) 12.43 H (1.3-7.7) k/uL Lymphocytes # (0.90-5.00) 10*3/uL Sodium 134 L (137-145) mmol/L Glucose 127 H (74-99) mg/dL POC Glucose (mg/dL) 124 H (70-110) mg/dL Calcium 8.0 L (8.4-10.2) mg/dL 10/11/24 10/11/24 10/12/24 Range/Units 17:40 20:37 04:31 WBC 14.22 H (4.50-10.00) 10*3/uL RBC 2.62 L (4.40-5.60) 10*6/uL Hgb 7.8 L (13.0-17.0) g/dL Hct 23.3 L (39.6-50.0) % MPV 8.8 L (9.5-12.2) fL Immature Gran # 0.64 H (0.00-0.04) 10*3/uL Neutrophils # 11.67 H (1.80-7.70) 10*3/uL Neutrophils # (Manual) (1.3-7.7) k/uL Lymphocytes # 0.88 L (0.90-5.00) 10*3/uL Sodium (137-145) mmol/L Glucose (74-99) mg/dL POC Glucose (mg/dL) 198 H 193 H (70-110) mg/dL Calcium (8.4-10.2) mg/dL 10/12/24 10/12/24 Range/Units 04:31 06:19 WBC (4.50-10.00) 10*3/uL RBC (4.40-5.60) 10*6/uL Hgb (13.0-17.0) g/dL Hct (39.6-50.0) % MPV (9.5-12.2) fL Immature Gran # (0.00-0.04) 10*3/uL Neutrophils # (1.80-7.70) 10*3/uL Neutrophils # (Manual) (1.3-7.7) k/uL Lymphocytes # (0.90-5.00) 10*3/uL Sodium 132 L (137-145) mmol/L Glucose (74-99) mg/dL POC Glucose (mg/dL) 120 H (70-110) mg/dL Calcium 7.7 L (8.4-10.2) mg/dL Microbiology - Last 24 Hours (Table) 10/06/24 11:57 Blood Culture - Final Blood
[2024-10-12 11:52] LABS: Glucose,Whole Blood 348 mg/dL (70-110)
[2024-10-12] MEDS: SODIUM CHLORIDE 0.9% 1,000 ML IV ONE (11:56)
--- NOTE | 2024-10-12 13:02 | P.PN ---
Subjective Progress Note Date: 10/12/24 Principal diagnosis: Reason for follow-up is left diabetic foot infection and bacteremia Patient is a 74-year-old lady with a past medical history of significant for Diabetes Mellitus, Deep Vein Thrombosis (DVT), Eye Disorder, GERD/Reflux, Hyperlipidemia, Hypertension, Prostate Disorder history of diabetic foot infection requiring amputation current smoker presenting to the hospital for evaluation of left foot toe discoloration. Patient is status post transmetatarsal amputation of the left foot completed on 10/04/2024.Patient is status post angiogram and had left superficial femoral artery arthrectomy and balloon dilatation of the left superficial femoral artery procedure completed on 10/11/2024. On today's evaluation that is 10/12/2024, patient did not have any fever and denies any chills, patient is breathing comfortably on room air, patient with no chest pain or cough patient did not have any abdominal pain nausea vomiting or any loose stools, pain to the left foot is currently controlled. Patient white count is 14.22, creatinine 0.80 blood culture repeat has been negative Objective - Vital Signs Vital signs: Vital Signs Temp 98.0 F 10/12/24 07:20 Pulse 106 H 10/12/24 07:20 Resp 16 10/12/24 07:20 BP 130/64 10/12/24 07:20 Pulse Ox 100 10/12/24 07:20 FiO2 Intake & Output 10/11/24 10/12/24 10/12/24 18:59 06:59 18:59 Intake Total 568 236 Output Total 1075 520 Balance -507 -520 236 Intake: IV 450 Oral 118 236 Output: Urine 1075 520 Other: Voiding Method Urinal # Voids 2 - Exam GENERAL DESCRIPTION: An elderly male lying in bed in no distress RESPIRATORY SYSTEM: Unlabored breathing , decreased breath sounds at bases HEART: S1 S2 regular rate and rhythm , ABDOMEN: Soft , no tenderness EXTREMITIES:Left foot wound is currently dressed - Labs CBC & Chem 7: 10/12/24 04:31 10/12/24 04:31 Labs: Abnormal Lab Results - Last 24 Hours (Table) 10/11/24 10/11/24 10/11/24 Range/Units 13:19 17:40 20:37 WBC (4.50-10.00) 10*3/uL RBC (4.40-5.60) 10*6/uL Hgb (13.0-17.0) g/dL Hct (39.6-50.0) % MPV (9.5-12.2) fL Immature Gran # (0.00-0.04) 10*3/uL Neutrophils # (1.80-7.70) 10*3/uL Lymphocytes # (0.90-5.00) 10*3/uL Sodium (137-145) mmol/L POC Glucose (mg/dL) 124 H 198 H 193 H (70-110) mg/dL Calcium (8.4-10.2) mg/dL 10/12/24 10/12/24 10/12/24 Range/Units 04:31 04:31 06:19 WBC 14.22 H (4.50-10.00) 10*3/uL RBC 2.62 L (4.40-5.60) 10*6/uL Hgb 7.8 L (13.0-17.0) g/dL Hct 23.3 L (39.6-50.0) % MPV 8.8 L (9.5-12.2) fL Immature Gran # 0.64 H (0.00-0.04) 10*3/uL Neutrophils # 11.67 H (1.80-7.70) 10*3/uL Lymphocytes # 0.88 L (0.90-5.00) 10*3/uL Sodium 132 L (137-145) mmol/L POC Glucose (mg/dL) 120 H (70-110) mg/dL Calcium 7.7 L (8.4-10.2) mg/dL Microbiology - Last 24 Hours (Table) 10/06/24 11:57 Blood Culture - Final Blood Assessment and Plan (1) Sepsis Current Visit: Yes Status: Acute Code(s): A41.9 - SEPSIS, UNSPECIFIED ORGANISM SNOMED Code(s): 82957165 (2) Diabetic foot infection Current Visit: Yes Status: Acute Code(s): E11.628 - TYPE 2 DIABETES MELLITUS WITH OTHER SKIN COMPLICATIONS; L08.9 - LOCAL INFECTION OF THE SKIN AND SUBCUTANEOUS TISSUE, UNSP SNOMED Code(s): 554691450 (3) Gangrene of toe of left foot Current Visit: Yes Status: Acute Code(s): I96 - GANGRENE, NOT ELSEWHERE CLASSIFIED SNOMED Code(s): 24181648182027876 (4) Osteomyelitis Current Visit: No Status: Acute Code(s): M86.9 - OSTEOMYELITIS, UNSPECIFIED SNOMED Code(s): 36553506 (5) MSSA bacteremia Current Visit: Yes Status: Acute Code(s): R78.81 - BACTEREMIA; B95.61 - METHICILLIN SUSCEP STAPH INFCT CAUSING DIS CLASSD ELSWHR SNOMED Code(s): 658457250 Plan: 1patient presented hospital with sepsis in this patient who did have a fever tachycardia elevated white committee criteria for SIRS source is left diabetic foot infection with gangrene of the fourth toe and will need to cover for the polymicrobial blanca associated with diabetic foot infection in this patient who did have previous history of MRSA as well as stenotrophomonas 2-patient with multiple antibiotic ALLERGIES that would limit the number of antibiotic safe to use 3-patient is status post left transmetatarsal amputation completed on 10/04/2024 4patient with MSSA bacteremia sourse is left diabetic foot infection, blood culture has been repeated which are so far negative 5patient is status post angiogram as well as arthrectomy and balloon genitoplasty of superficial femoral artery completed on 10/11/2024 hopefully will help in the healing of his left foot. 6patient currently being treated with cefazolin and Flagyl we will continue with this to antibiotic for at least 10 days on discharge and monitor clinical course closely Dictation was produced using [employer] dictation software. please excuse any grammatical, word or spelling errors. Time with Patient: Less than 30
[2024-10-12 17:08] LABS: Glucose,Whole Blood 204 mg/dL (70-110)
[2024-10-12 19:37] LABS: Glucose,Whole Blood 239 mg/dL (70-110)
[2024-10-13 06:01] LABS: Glucose,Whole Blood 151 mg/dL (70-110)
[2024-10-13 06:43] LABS: Basophils # (A) 0.03 10*3/uL (0.00-0.10); Basophils % (A) 0.2 %; Eosinophils # (A) 0.11 10*3/uL (0.04-0.35); Eosinophils % (A) 0.9 %; HCT 22.1 % (39.6-50.0); HGB 7.4 g/dL (13.0-17.0); Lymphocytes # (A) 1.19 10*3/uL (0.90-5.00); Lymphocytes % (A) 9.5 %; MCH 29.6 pg (27.0-32.0); MCHC 33.5 g/dL (32.0-37.0); MCV 88.4 fL (80.0-97.0); Mean Platelet Volume 8.9 fL (9.5-12.2); Monocytes # (A) 0.92 10*3/uL (0.20-1.00); Monocytes % (A) 7.3 %; Neutrophils # (A) 9.78 10*3/uL (1.80-7.70); Neutrophils % (A) 77.7 %; Platelet Count 401 10*3/uL (140-440); RDW 13.2 % (11.5-14.5); WBC 12.58 10*3/uL (4.50-10.00)
[2024-10-13 07:00] LABS: African American GFR (CKD) >90 (>60 ml/min/1.73 sqM); Anion Gap 5 mmol/L; Blood Urea Nitrogen 14 mg/dL (9-20); Calcium 7.8 mg/dL (8.4-10.2); Carbon Dioxide 28 mmol/L (22-30); Chloride 101 mmol/L (98-107); Glucose 117 mg/dL (74-99); Magnesium 1.9 mg/dL (1.6-2.3); Non-African American GFR(CKD) 89 (>60 ml/min/1.73 sqM); Potassium 3.9 mmol/L (3.5-5.1); Sodium 134 mmol/L (137-145)
--- NOTE | 2024-10-13 11:57 | P.PN ---
Subjective Progress Note Date: 10/13/24 Subjective: Patient seen and examined at bedside. No acute events overnight. Claims that pain is now well-controlled. Pertinent positives and negatives as discussed above, a complete review of systems was performed and all other systems are negative. Vitals Signs Reviewed. General: Nontoxic, no distress, appears at stated age Derm: Warm, dry, left foot covered in dressing Head: Atraumatic, normocephalic, symmetric Eyes: EOMI, no lid lag, anicteric sclera Mouth: No lip lesion, mucus membranes moist Cardiovascular: S1S2 reg, no murmur Lungs: CTA bilateral, no rhonchi, no rales, no accessory muscle use Abdominal: Soft, nontender to palpation, no guarding, no appreciable organomegal y Ext: No gross muscle atrophy, no edema, no contractures Neuro: CN II-XI grossly intact, no focal neuro deficits Psych: Alert, oriented, appropriate affect Data Reviewed Today: Pertinent Labs: WBC 12.58, hemoglobin 7.4, creatinine 0.77, magnesium 1.9, blood sugars range between 151-239 Imaging: No new imaging Assessment and Plan: Active: Sepsis on admission, now resolved Osteomyelitis of left foot status post transmetatarsal amputation Left foot cellulitis Diabetic foot infection - On IV cefazolin 2 g every 8 hours, oral Flagyl 500 every 8 hours - ID following, also has patient on Diflucan 100 mg daily - Midline nonfunctioning, will need to be replaced tomorrow Severe peripheral arterial disease status post arthrectomy History of DVT not on anticoagulation - On aspirin 81 mg daily, atorvastatin 80 mg daily, cilostazol 100 mg twice daily, gabapentin 400 3 times daily - Further pain control with oral Mchenry 7.5 every 6 hours, oral Dilaudid 1 mg every 2 hours as needed for severe pain Type 2 diabetes - Lantus 10 units nightly, lispro 3 units AC 3 times daily, sliding scale insulin, monitor for hypoglycemia Resolved: Hyponatremia Chronic: HTN HLD BPH Anemia DVT ppx: heparin SQ Code status: Anticipated discharge place: pending clinical course Anticipated discharge time: pending clinical course Objective - Vital Signs Vital signs: Vital Signs Temp 97.9 F 10/13/24 07:15 Pulse 95 10/13/24 07:15 Resp 17 10/13/24 07:15 BP 126/64 10/13/24 07:15 Pulse Ox 93 L 10/13/24 07:15 FiO2 Intake & Output 10/12/24 10/13/24 10/13/24 18:59 06:59 18:59 Intake Total 236 540 Output Total 350 Balance 236 190 Intake: Oral 236 540 Output: Urine 350 Other: # Voids 4 # Bowel Movements 0 - Labs CBC & Chem 7: 10/13/24 06:13 10/13/24 06:13 Labs: Abnormal Lab Results - Last 24 Hours (Table) 10/12/24 10/12/24 10/12/24 Range/Units 17:06 17:10 19:35 WBC (4.50-10.00) 10*3/uL RBC (4.40-5.60) 10*6/uL Hgb (13.0-17.0) g/dL Hct (39.6-50.0) % MPV (9.5-12.2) fL Immature Gran # (0.00-0.04) 10*3/uL Neutrophils # (1.80-7.70) 10*3/uL Sodium 134 L (137-145) mmol/L Glucose (74-99) mg/dL POC Glucose (mg/dL) 204 H 239 H (70-110) mg/dL Calcium (8.4-10.2) mg/dL 10/13/24 10/13/24 10/13/24 Range/Units 06:00 06:13 06:13 WBC 12.58 H (4.50-10.00) 10*3/uL RBC 2.50 L (4.40-5.60) 10*6/uL Hgb 7.4 L (13.0-17.0) g/dL Hct 22.1 L (39.6-50.0) % MPV 8.9 L (9.5-12.2) fL Immature Gran # 0.55 H (0.00-0.04) 10*3/uL Neutrophils # 9.78 H (1.80-7.70) 10*3/uL Sodium 134 L (137-145) mmol/L Glucose 117 H (74-99) mg/dL POC Glucose (mg/dL) 151 H (70-110) mg/dL Calcium 7.8 L (8.4-10.2) mg/dL
[2024-10-13 12:20] LABS: Glucose,Whole Blood 292 mg/dL (70-110)
[2024-10-13 14:28] LABS: Glucose,Whole Blood 308 mg/dL (70-110)
[2024-10-13 17:32] LABS: Glucose,Whole Blood 224 mg/dL (70-110)
[2024-10-13 19:58] LABS: Glucose,Whole Blood 235 mg/dL (70-110)
[2024-10-14 05:36] LABS: Glucose,Whole Blood 149 mg/dL (70-110)
[2024-10-14 10:01] LABS: Basophils # (A) 0.04 X 10*3/uL (0.00-0.10); Basophils % (A) 0.4 %; Eosinophils # (A) 0.14 X 10*3/uL (0.04-0.35); Eosinophils % (A) 1.3 %; HCT 20.9 % (39.6-50.0); HGB 6.9 g/dL (13.0-17.0); Lymphocytes # (A) 1.34 X 10*3/uL (0.90-5.00); Lymphocytes % (A) 12.1 %; MCH 29.5 pg (27.0-32.0); MCV 89.3 FL (80.0-97.0); Mean Platelet Volume 9.1 FL (9.5-12.2); Monocytes # (A) 0.85 X 10*3/uL (0.20-1.00); Monocytes % (A) 7.7 %; NRBC Per 100 WBC 0 X 10*3/uL (0.00-0.01); Neutrophils # (A) 8.13 X 10*3/uL (1.80-7.70); Neutrophils % (A) 73.5 %; Platelet Count 442 X 10*3/uL (140-440); RBC 2.34 X 10*6/uL (4.40-5.60); RBC Morphology Normal (Normal); RDW 13.4 % (11.5-14.5); WBC 11.05 X 10*3/uL (4.50-10.00)
--- NOTE | 2024-10-14 11:25 | P.PN ---
Subjective Progress Note Date: 10/14/24 Principal diagnosis: Peripheral arterial disease, left gangrene toes Patient seen and examined today as a follow-up. Monday he underwent abdominal aortogram with runoff. Left lower extremity angiogram with atherectomy of the left SFA with balloon dilation. Patient states pain is improved on the left lower extremity. He denies any bleeding or pain at the right groin access site. Leukocytosis continues to trend down. Today's hemoglobin 6.9. No active bleeding per patient. Objective - Vital Signs Vital signs: Vital Signs Temp 98.1 F 10/14/24 07:46 Pulse 95 10/14/24 07:46 Resp 19 10/14/24 07:46 BP 110/57 10/14/24 07:46 Pulse Ox 92 L 10/14/24 07:46 FiO2 Intake & Output 10/13/24 10/14/24 10/14/24 18:59 06:59 18:59 Intake Total 222 236 Output Total 1400 Balance -1178 236 Intake: Oral 222 236 Output: Urine 1400 Other: Voiding Method Urinal # Voids 3 # Bowel Movements 0 - Exam General appearance: The patient is alert, oriented, appears in no acute distress. HET: Head is normocephalic and atraumatic. Neck: Supple. Abdomen: Soft, nondistended. Extremities: Right groin access site without any hematoma or bleeding. Lower extremities skin is dry, scaly and flaky. Left foot TMA site approximated loosely with sutures with serous drainage. Plantar aspect of foot with flu ctuance, appears to be subcutaneous fluid with area of dark bloody fluid. Multiphasic PT Doppler signal, more of biphasic DP Doppler signal. Neurological: No focal deficits. Alert and oriented. - Labs CBC & Chem 7: 10/14/24 05:33 10/13/24 06:13 Labs: Abnormal Lab Results - Last 24 Hours (Table) 10/13/24 10/13/24 10/13/24 Range/Units 12:18 14:26 17:31 POC Glucose (mg/dL) 292 H 308 H 224 H (70-110) mg/dL 10/13/24 10/14/24 Range/Units 19:57 05:32 POC Glucose (mg/dL) 235 H 149 H (70-110) mg/dL Assessment and Plan Assessment: 1. Left foot gangrene fourth toe status post transmetatarsal amputation 2. Left foot cellulitis 3. Arthrosclerotic disease of the lower extremities 4. Diabetes mellitus 5. Chronic tobacco use 6. History of previous gangrenous toes status post amputation first and second toe of the left foot 7. History of left lower extremity deep vein thrombosis Plan: Plantar aspect of left foot with fluid-filled blistering/fluctuance. Outer layer of skin debrided off without any active bleeding minimal serous fluid. Continue with Adaptic to plantar aspect, 4 x 4 and Kerlix to TMA site. Continue with heel walk, postop shoe when ambulating. Antibiotics per recommendations from infectious disease. Patient is cleared from vascular surgery for discharge with follow-up in 1 week. The impression and plan of care has been dictated as directed. Dr. Avalos I performed a history and examination of this patient, discussed the same with the dictator. I agree with the dictator's note ,documented as a scribe. Any additional findings or plans will be noted.
--- NOTE | 2024-10-14 12:53 | P.PN ---
Subjective Progress Note Date: 10/13/24 Principal diagnosis: Reason for follow-up is left diabetic foot infection and bacteremia Patient is a 74-year-old lady with a past medical history of significant for Diabetes Mellitus, Deep Vein Thrombosis (DVT), Eye Disorder, GERD/Reflux, Hyperlipidemia, Hypertension, Prostate Disorder history of diabetic foot infection requiring amputation current smoker presenting to the hospital for evaluation of left foot toe discoloration. Patient is status post transmetatarsal amputation of the left foot completed on 10/04/2024.Patient is status post angiogram and had left superficial femoral artery arthrectomy and balloon dilatation of the left superficial femoral artery procedure completed on 10/11/2024. On today's evaluation that is 10/13/2024, Patient is afebrile patient is currently on room air and denies having any shortness of breath, the patient denies any chest pain or cough, the patient denies any nausea vomiting did not have any abdominal pain and no diarrhea pain to the left foot is currently controlled. Patient white count is down to 12.58, creatinine 0.77 blood culture repeat has been negative Objective - Vital Signs Vital signs: Vital Signs Temp 98.3 F 10/13/24 18:50 Pulse 101 H 10/13/24 18:50 Resp 20 10/13/24 18:50 BP 121/56 10/13/24 18:50 Pulse Ox 95 10/13/24 18:50 FiO2 Intake & Output 10/13/24 10/13/24 10/14/24 06:59 18:59 06:59 Intake Total 540 222 Output Total 350 Balance 190 222 Intake: Oral 540 222 Output: Urine 350 Other: # Voids 3 # Bowel Movements 0 - Exam GENERAL DESCRIPTION: An elderly male lying in bed in no distress RESPIRATORY SYSTEM: Unlabored breathing , decreased breath sounds at bases HEART: S1 S2 regular rate and rhythm , ABDOMEN: Soft , no tenderness EXTREMITIES:Left foot wound is currently dressed - Labs CBC & Chem 7: 10/14/24 05:33 10/13/24 06:13 Labs: Abnormal Lab Results - Last 24 Hours (Table) 10/13/24 10/13/24 10/13/24 Range/Units 06:00 06:13 06:13 WBC 12.58 H (4.50-10.00) 10*3/uL RBC 2.50 L (4.40-5.60) 10*6/uL Hgb 7.4 L (13.0-17.0) g/dL Hct 22.1 L (39.6-50.0) % MPV 8.9 L (9.5-12.2) fL Immature Gran # 0.55 H (0.00-0.04) 10*3/uL Neutrophils # 9.78 H (1.80-7.70) 10*3/uL Sodium 134 L (137-145) mmol/L Glucose 117 H (74-99) mg/dL POC Glucose (mg/dL) 151 H (70-110) mg/dL Calcium 7.8 L (8.4-10.2) mg/dL 10/13/24 10/13/24 10/13/24 Range/Units 12:18 14:26 17:31 WBC (4.50-10.00) 10*3/uL RBC (4.40-5.60) 10*6/uL Hgb (13.0-17.0) g/dL Hct (39.6-50.0) % MPV (9.5-12.2) fL Immature Gran # (0.00-0.04) 10*3/uL Neutrophils # (1.80-7.70) 10*3/uL Sodium (137-145) mmol/L Glucose (74-99) mg/dL POC Glucose (mg/dL) 292 H 308 H 224 H (70-110) mg/dL Calcium (8.4-10.2) mg/dL 10/13/24 Range/Units 19:57 WBC (4.50-10.00) 10*3/uL RBC (4.40-5.60) 10*6/uL Hgb (13.0-17.0) g/dL Hct (39.6-50.0) % MPV (9.5-12.2) fL Immature Gran # (0.00-0.04) 10*3/uL Neutrophils # (1.80-7.70) 10*3/uL Sodium (137-145) mmol/L Glucose (74-99) mg/dL POC Glucose (mg/dL) 235 H (70-110) mg/dL Calcium (8.4-10.2) mg/dL Assessment and Plan (1) Sepsis Current Visit: Yes Status: Acute Code(s): A41.9 - SEPSIS, UNSPECIFIED ORGANISM SNOMED Code(s): 65045350 (2) Diabetic foot infection Current Visit: Yes Status: Acute Code(s): E11.628 - TYPE 2 DIABETES MELLITUS WITH OTHER SKIN COMPLICATIONS; L08.9 - LOCAL INFECTION OF THE SKIN AND SUBCUTANEOUS TISSUE, UNSP SNOMED Code(s): 277340297 (3) Gangrene of toe of left foot Current Visit: Yes Status: Acute Code(s): I96 - GANGRENE, NOT ELSEWHERE CLA SSIFIED SNOMED Code(s): 31986846776253823 (4) Osteomyelitis Current Visit: No Status: Acute Code(s): M86.9 - OSTEOMYELITIS, UNSPECIFIED SNOMED Code(s): 39565435 (5) MSSA bacteremia Current Visit: Yes Status: Acute Code(s): R78.81 - BACTEREMIA; B95.61 - METHICILLIN SUSCEP STAPH INFCT CAUSING DIS CLASSD ELSWHR SNOMED Code(s): 083424618 Plan: 1patient [facility] with sepsis in this patient who did have a fever tachycardia elevated white committee criteria for SIRS source is left diabetic foot infection with gangrene of the fourth toe and will need to cover for the polymicrobial blanca associated with diabetic foot infection in this patient who did have previous history of MRSA as well as stenotrophomonas 2-patient with multiple antibiotic ALLERGIES that would limit the number of antibiotic safe to use 3-patient is status post left transmetatarsal amputation completed on 10/04/2024 4patient with MSSA bacteremia sourse is left diabetic foot infection, blood culture has been repeated which are so far negative 5patient is status post angiogram as well as arthrectomy and balloon genitoplasty of superficial femoral artery completed on 10/11/2024 6patient white count is trending down, to continue with cefazolin and Flagyl and monitor clinical course closely Dictation was produced using [employer] dictation software. please excuse any grammatical, word or spelling errors. Time with Patient: Less than 30
--- NOTE | 2024-10-14 12:54 | P.PN ---
Subjective Progress Note Date: 10/14/24 Principal diagnosis: Reason for follow-up is left diabetic foot infection and bacteremia Patient is a 74-year-old lady with a past medical history of significant for Diabetes Mellitus, Deep Vein Thrombosis (DVT), Eye Disorder, GERD/Reflux, Hyperlipidemia, Hypertension, Prostate Disorder history of diabetic foot infection requiring amputation current smoker presenting to the hospital for evaluation of left foot toe discoloration. Patient is status post transmetatarsal amputation of the left foot completed on 10/04/2024.Patient is status post angiogram and had left superficial femoral artery arthrectomy and balloon dilatation of the left superficial femoral artery procedure completed on 10/11/2024. On today's evaluation that is 10/14/2024, patient has been afebrile, patient is breathing comfortably and is currently on room air, patient denies having any chest pain and cough, patient denies nausea vomiting or diarrhea and no abdominal pain, patient pain to the left foot has decreased in intensity. Patient white count is down to 11.05 hemoglobin is 6.9, creatinine is 0.77 Objective - Vital Signs Vital signs: Vital Signs Temp 98.1 F 10/14/24 07:46 Pulse 95 10/14/24 07:46 Resp 19 10/14/24 07:46 BP 110/57 10/14/24 07:46 Pulse Ox 92 L 10/14/24 07:46 FiO2 Intake & Output 10/13/24 10/14/24 10/14/24 18:59 06:59 18:59 Intake Total 222 236 Output Total 1400 Balance -1178 236 Intake: Oral 222 236 Output: Urine 1400 Other: Voiding Method Urinal # Voids 3 # Bowel Movements 0 - Exam GENERAL DESCRIPTION: An elderly male lying in bed in no distress RESPIRATORY SYSTEM: Unlabored breathing , decreased breath sounds at bases HEART: S1 S2 regular rate and rhythm , ABDOMEN: Soft , no tenderness EXTREMITIES:Left foot wound is currently dressed - Labs CBC & Chem 7: 10/14/24 05:33 10/13/24 06:13 Labs: Abnormal Lab Results - Last 24 Hours (Table) 10/13/24 10/13/24 10/13/24 Range/Units 12:18 14:26 17:31 WBC (4.50-10.00) X 10*3/uL RBC (4.40-5.60) X 10*6/uL Hgb (13.0-17.0) g/dL Hct (39.6-50.0) % Plt Count (140-440) X 10*3/uL MPV (9.5-12.2) FL Immature Gran # (0.00-0.04) X 10*3/uL Neutrophils # (1.80-7.70) X 10*3/uL POC Glucose (mg/dL) 292 H 308 H 224 H (70-110) mg/dL 10/13/24 10/14/24 10/14/24 Range/Units 19:57 05:32 05:33 WBC 11.05 H (4.50-10.00) X 10*3/uL RBC 2.34 L (4.40-5.60) X 10*6/uL Hgb 6.9 A* (13.0-17.0) g/dL Hct 20.9 L (39.6-50.0) % Plt Count 442 H (140-440) X 10*3/uL MPV 9.1 L (9.5-12.2) FL Immature Gran # 0.55 H (0.00-0.04) X 10*3/uL Neutrophils # 8.13 H (1.80-7.70) X 10*3/uL POC Glucose (mg/dL) 235 H 149 H (70-110) mg/dL Assessment and Plan (1) Sepsis Current Visit: Yes Status: Acute Code(s): A41.9 - SEPSIS, UNSPECIFIED ORGANISM SNOMED Code(s): 42632860 (2) Diabetic foot infection Current Visit: Yes Status: Acute Code(s): E11.628 - TYPE 2 DIABETES MELLITUS WITH OTHER SKIN COMPLICATIONS; L08.9 - LOCAL INFECTION OF THE SKIN AND SUBCUTANEOUS TISSUE, UNSP SNOMED Code(s): 960898212 (3) Gangrene of toe of left foot Current Visit: Yes Status: Acute Code(s): I96 - GANGRENE, NOT ELSEWHERE CLASSIFIED SNOMED Code(s): 43806704981949454 (4) Osteomyelitis Current Visit: No Status: Acute Code(s): M86.9 - OSTEOMYELITIS, UNSPECIFIED SNOMED Code(s): 84985437 (5) MSSA bacteremia Current Visit: Yes Status: Acute Code(s): R78.81 - BACTEREMIA; B95.61 - METHICILLIN SUSCEP STAPH INFCT CAUSING DIS CLASSD ELSWHR SNOMED Code(s): 983721483 Plan: 1patient presented hospital with sepsis in this patient who did have a fever tachycardia elevated white committee criteria for SIRS source is left diabetic foot infection with gangrene of the fourth toe and will need to cover for the polymicrobial blanca associated with diabetic foot infection in this patient who did have previous history of MRSA as well as stenotrophomonas 2-patient with multiple antibiotic ALLERGIES that would limit the number of antibiotic safe to use 3-patient is status post left transmetatarsal amputation completed on 10/04/2024 4patient with MSSA bacteremia sourse is left diabetic foot infection, blood culture has been repeated which are so far negative 5patient is status post angiogram as well as arthrectomy and balloon genitoplasty of superficial femoral artery completed on 10/11/2024 6patient white count has almost normalized blood culture repeat has been negative plan is for a 10-day course of IV cefazolin and oral Flagyl on discharge and close outpatient follow-up Dictation was produced using [employer] dictation software. please excuse any grammatical, word or spelling errors. Time with Patient: Less than 30
--- NOTE | 2024-10-14 15:39 | P.PN ---
Subjective Progress Note Date: 10/14/24 74-year-old male with PMH of [id number] diabetes mellitus, hypertension, hyperlipidemia, previous DVT approximately 20 years ago which was treated with heparin and BPH presented emergency room for concerns for a foot infection. States this has been bugging him for a few days and progressively w orsening, particularly with ambulation. He does have a history of infection in the first and second digit of the left foot, with previous culture positive for Pseudomonas as well as MRSA. He endorses some chills over that time. However denies any confirmed fevers, nausea, vomiting, changes in appetite. 10/04 - He is seen and examined at bedside this morning, now on the 4th floor. Overnight he had worsening pain, for which she received Dilaudid which she stated helped more than the morphine he had previously been receiving. He was also noted to have 686 cc of urine on his bladder scan, however did not want to have a khan catheter placed. He was noted to have some better urine production throughout the night and a repeat bladder scan was done early this morning which showed ~200 cc of urine. 10/05 - He is seen and examined at bedside this morning. He underwent transmetatarsal amputation of the left foot yesterday. He had no acute events overnight. Continues to endorse pain in his left calf area, especially when squeezed. Discussed with patient likely secondary to extensive peripheral artery disease, and symptoms are likely claudication. He had concern was a DVT, as it was similar to something it experience before. Previous duplex ultrasound showed no signs of DVT, D-dimer tested today showed to be 0.76. Initiate on cilostazol 100 mg twice daily for claudication-like pain. 10/06 - ongoing pain per pt, but appears comfortable on exam. pain medication adjusted yesterday with addition of gabapentin, lidocaine patch, increase of opiate medication 10/07 - He is seen and examined at bedside this morning. Continues to complain of pain, while appearing to be comfortable on exam. Will undergo angiogram with revascularization with vascular surgery tomorrow morning. Has no acute complaints this morning, continues to tolerate diet well as well as no difficulties or changes in bowel movements and urinary function. 10/08 - He is seen and examined at bedside this morning. He has no acute complaints at this time, stating that his pain is well-controlled when he receives medication. He was originally scheduled to undergo an angiogram today, however proceeded to decline this morning. He states that someone told him it may not help very much, however he is unsure of who this was. 10/09 - He is seen and examined at bedside this morning. Without acute complaints at this time. Repeat blood cultures been negative for 48 hours, midline will be inserted today for his IV antibiotics upon discharge. Awaiting full confirmation from the [facility], where scripts have been sent. 10/10 - He is seen and examined at bedside this morning. Did spike a small fever late last night at 100.6 F, has remained tachycardic intermittently and CBC shows leukocytosis that has persisted with an increase over the past couple of days. Echocardiogram ordered to further evaluate for the possibility of endocarditis. He continues to endorse the same intermittent throbbing pain in his left calf, however otherwise has no acute complaints today. 10/11 - He is seen and examined at bedside this morning. No acute complaints this morning, however continues to endorse intermittent pain in his lower leg on the left, most frequently on the lateral aspect of his ankle. After discussion with infectious disease, the patient is now agreeable to undergo angiogram. This is a procedure for which there is no urgency, however while he remains in the hospital it would likely be completed today. Currently awaiting to undergo echocardiogram for further evaluation of possible endocarditis secondary to continuing elevation of his white blood cell count despite being on continuous IV antibiotics. 10/12 - He is seen and examined at bedside this morning, now on the 6th floor. He underwent angiogram yesterday in which atherectomy, drug-eluting balloon were placed. He tolerated the procedure well, and had no discomfort noted following the procedure. He has no acute complaints morning, stating he is very happy that the pain is taken care of thus far. 10/13 - Patient seen and examined at bedside. No acute events overnight. Claims that pain is now well-controlled. 10/14 - He is seen and examined at bedside this morning, no acute events overnight and no complaints today. His hemoglobin was noted to be 6.9, so he received 1 unit PRBCs. Additionally, plan is for a fresh midline to be placed today. REVIEW OF SYSTEMS: Pertinent positives and negatives noted in HPI. Physical Exam: General: nontoxic, no distress, appears at stated age. Unkempt in appearance Derm: warm, dry, intact Head: atraumatic, normocephalic, symmetric Eyes: EOMI, anicteric sclera Mouth: no lip lesion, mucus membranes moist Cardiovascular: S1 S2 reg, no murmur, rubs, or gallops Lungs: CTA bilateral, no rales, no accessory muscle use; diminished bilaterally Abdominal: soft, non-tender to palpataion, no appreciable organomegaly Extremities: no gross muscle atrophy, no edema, no contractures; left foot in dressing Neuro: Alert, Oriented, CNII-XII grossly intact, gait normal Psych: appropriate affect Data Received Today: Labs: WBCs 11.05, hemoglobin 6.9, hematocrit 20.5, platelet 442 Imagining: No new imaging today Assessment and plan 74-year-old male with PMH of [id number] diabetes mellitus, hypertension, hyperlipidemia, previous DVT proximately 20 years ago treated with heparin, multiple previous foot infections with history of Pseudomonas and MRSA and BPH presented emergency room for concerns for a foot infection. #Sepsis on admission, now resolved #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 #Left foot cellulitis #Diabetic foot infection -Continue with cefazolin 2 g every 8 hours and Flagyl 500 mg every 8 hours -Midline has been placed on 10/09/24, nonfunctioning, will be replaced 10/14/2024 -ID following, has patient also on Diflucan 100 mg daily #Severe peripheral arterial disease s/p arthrectomy #History of DVT, not on anticoagulation -Resume home aspirin 81 mg daily, Lipitor 80 mg daily, cilostazol 100 mg twice daily, gabapentin 400 mg 3 times daily -Underwent angiogram 10/11/2024 with atherectomy and placement of drug-eluting balloons - Further pain control with oral Jasper 7.5 every 6 hours, oral Dilaudid 1 mg every 2 hours as needed for severe pain #Acute episode of anemia, Hgb <7, requiring transfusion #Anemia of chronic disease, likely mixed micro and macrocytic with evidence of iron deficiency -Continue monitor CBC -No evidence of active bleeding -CBC this morning showed hemoglobin 6.9 -Receiving 1 unit PRBCs, will recheck CBC following transfusion #Nhl-sjeobge-teidaqglz type 2 diabetes mellitus -Accu-Cheks ACHS -Sliding scale initiated -Hemoglobin A1c 8.6 -Continue with Lantus 10 units nightly, an additional 3 units ACHS -Monitor for hypoglycemia -Per the nursing staff, refusing blood glucose checks #Hypovolemic hyponatremia, resolved #Hypertension -Hold home Cozaar to maintain permissive hypertension in the setting of sepsis #Hyperlipidemia -Continue home Lipitor 80 mg daily #BPH -Continue home Flomax 0.8 mg nightly GI prophylaxis: Protonix 40 mg daily DVT prophylaxis: Heparin 5000 unit SQ every 12 hours Code status: Full code F: None E: Replete as needed N: Consistent carbohydrate, heart healthy A: Ambulatory at baseline Anticipated discharge place: Home with home care Anticipated discharge time: Likely tomorrow Dictation was produced using [employer] dictation software. please excuse any grammatical, word or spelling errors. Siva Florentino MD PGY-1 IM I have seen and evaluated the patient today. Discussed with the resident and agree with the residents finding and plan as documented in the resident's note. Changes highlighted in blue font. Objective - Vital Signs Vital signs: Vital Signs Temp 98.1 F 10/14/24 07:46 Pulse 95 10/14/24 07:46 Resp 19 10/14/24 07:46 BP 110/57 10/14/24 07:46 Pulse Ox 92 L 10/14/24 07:46 FiO2 Intake & Output 10/13/24 10/14/24 10/14/24 18:59 06:59 18:59 Intake Total 222 Output Total 1400 Balance -1178 Intake: Oral 222 Output: Urine 1400 Other: # Voids 3 # Bowel Movements 0 - Labs CBC & Chem 7: 10/14/24 05:33 10/13/24 06:13 Labs: Abnormal Lab Results - Last 24 Hours (Table) 10/13/24 10/13/24 10/13/24 Range/Units 12:18 14:26 17:31 POC Glucose (mg/dL) 292 H 308 H 224 H (70-110) mg/dL 10/13/24 10/14/24 Range/Units 19:57 05:32 POC Glucose (mg/dL) 235 H 149 H (70-110) mg/dL
[2024-10-14 17:55] LABS: HCT 23.9 % (39.6-50.0); HGB 8.1 g/dL (13.0-17.0); MCH 29.8 pg (27.0-32.0); MCHC 33.9 g/dL (32.0-37.0); MCV 87.9 fL (80.0-97.0); Mean Platelet Volume 8.7 fL (9.5-12.2); Platelet Count 436 10*3/uL (140-440); RBC 2.72 10*6/uL (4.40-5.60); RDW 14.5 % (11.5-14.5); WBC 12.63 10*3/uL (4.50-10.00)
[2024-10-15 04:32] LABS: HCT 23.2 % (39.6-50.0); HGB 7.8 g/dL (13.0-17.0); MCH 29.7 pg (27.0-32.0); MCHC 33.6 g/dL (32.0-37.0); MCV 88.2 fL (80.0-97.0); Mean Platelet Volume 8.7 fL (9.5-12.2); Platelet Count 459 10*3/uL (140-440); RBC 2.63 10*6/uL (4.40-5.60); RDW 14.9 % (11.5-14.5); WBC 11.13 10*3/uL (4.50-10.00)
[2024-10-15 05:00] LABS: Band Neutrophils % 5 %; Eosinophils # (M) 0.45 k/uL (0-0.7); Lymphocytes # (M) 1.22 k/uL (1.0-4.8); Monocytes # (M) 0.45 k/uL (0-1.0); Neutrophils # (M) 9.01 k/uL (1.3-7.7); Neutrophils % (M) 76 %; Nucleated Red Blood Cells 0 /100 WBC (0-0); Total Cells Counted 100
[2024-10-15 05:01] LABS: Anisocytosis (M) Present; Polychromasia Present
--- NOTE | 2024-10-15 11:05 | P.DS ---
Providers Date of admission: 10/03/24 11:35 Expected date of discharge: 10/15/24 Attending physician: Patrick Martinez Consults: 10/03/24 11:34 Consult Physician Urgent Consulting Provider: Uri Marshall Consult Reason/Comments: Gangrenous left fourth toe Do you want consulting provider notified?: Yes 10/03/24 14:20 Consult Physician Routine Consulting Provider: Alexa Peters Consult Reason/Comments: Osteomyelitis Do you want consulting provider notified?: Yes [facility] Course: Discharge diagnoses; #Sepsis on admission, now resolved #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 #Left foot cellulitis #Diabetic foot infection #Severe peripheral arterial disease s/p arthrectomy #History of DVT, not on anticoagulation #Svo-ousrtpx-kyzryqfzb type 2 diabetes mellitus #Anemia of chronic disease, likely mixed micro and macrocytic with evidence of iron deficiency #Hypovolemic hyponatremia, resolved #Hypertension #Hyperlipidemia #BPH Hospital course; 74-year-old male with PMH of vyn-svgxxin-mmkhkitdu diabetes mellitus, hypertension, hyperlipidemia, previous DVT approximately 20 years ago which was treated with heparin and BPH presented emergency room for concerns for a foot infection. States this has been bugging him for a few days and progressively worsening, particularly with ambulation. He does have a history of infection in the first and second digit of the left foot, with previous culture positive for Pseudomonas as well as MRSA. He was found to have a gangrenous appearing fourth digit of the left foot, and underwent a transmetatarsal amputation of the left foot on 10/04/2024. Blood culture showed evidence of MSSA bacteremia, and repeat blood culture ordered. During this time he was receiving IV antibiotics and was seen and evaluated further by vascular surgery with recommendation of an angiogram, which the patient initially declined. Following repeat blood cultu res showing negative growth, and midline was inserted with the intention of continuing a course of IV antibiotics following discharge from the hospital. During the process of preparing the patient's discharge, [facility], working with [facility] care he reconsider disposition on the angiogram I decided he would like to have it done during the stay. On 10/11/2024 he underwent an angiogram with ultrasound-guided cannulation of the right femoral artery, abdominal aortogram with runoffs of the pelvis, catheterization of the left superficial femoral artery, left femoral angiogram, atherectomy of the left superficial femoral artery balloon dilation of the left superficial femoral artery. Following this procedure the majority of his left leg pain/discomfort, which has bothered him prior to arriving at the hospital as well as following the transmetatarsal amputation, has been resolved. On the morning of 10/14/2024 his hemoglobin was noted to be 6.9, and he received 1 unit of packed red blood cells. Throughout the duration of his stay he was seen and evaluated by vascular surgery and infectious disease. As per infectious disease recommendation, plan is for him to complete a 10-day course of IV cefazolin and oral Flagyl upon discharge. Discussed with the patient, and he expressed understanding and the importance of close outpatient follow-up with both infectious disease as well as vascular surgery within 1-2 weeks of discharge to which she verbalized understanding. He is very excited to be discharged today. Physical Exam: General: nontoxic, no distress, appears at stated age. Unkempt in appearance Derm: warm, dry, intact Head: atraumatic, normocephalic, symmetric Eyes: EOMI, anicteric sclera Mouth: no lip lesion, mucus membranes moist Cardiovascular: S1 S2 reg, no murmur, rubs, or gallops Lungs: CTA bilateral, no rales, no accessory muscle use; diminished bilaterally Abdominal: soft, non-tender to palpataion, no appreciable organomegaly Extremities: no gross muscle atrophy, no edema, no contractures; left foot in dressing Neuro: Alert, Oriented, CNII-XII grossly intact, gait normal Psych: appropriate affect Dictation was produced using [employer] dictation software. please excuse any grammatical, word or spelling errors. Siva Florentino MD PGY-1 IM A total of 38 minutes of time were spent preparing this complex discharge summary. Patient was discharged on 10/15/2024 at 939. I have seen and evaluated the patient today. Discussed with the resident and agree with the residents finding and plan as documented in the resident's note. Changes highlighted in blue font. Patient Condition at Discharge: Serious Plan - Discharge Summary Discharge Rx Participant: Yes New Discharge Prescriptions: New HYDROcodone/APAP 7.5-325MG [[place] 7.5-325] 1 each PO Q6HR PRN 3 Days #12 tab PRN Reason: Pain cilostazoL [Pletal] 100 mg PO BID #60 tab metroNIDAZOLE [Flagyl] 500 mg PO Q8HR 10 Days #30 tab Folic Acid 1 mg PO DAILY #30 tab Ferrous Sulfate [Iron (65 MG Elemental)] 325 mg PO DAILY #30 tab ceFAZolin [Kefzol] 2 gm IVP Q8HR #30 each Gabapentin [Neurontin] 300 mg PO TID 30 Days #90 cap Multivitamins, Thera [Multivitamin (formulary)] 1 each PO DAILY #30 tab Ascorbic Acid [Vitamin C] 1,000 mg PO DAILY #30 tablet Continue metFORMIN HCL [Glucophage] 1,000 mg PO BID Aspirin [Adult Low Dose Aspirin EC] 81 mg PO DAILY Rosuvastatin Calcium [Crestor] 40 mg PO DAILY Losartan [Cozaar] 50 mg PO DAILY Cholecalciferol [Vitamin D3 (25 Mcg = 1000 Iu)] 50 mcg PO DAILY SITagliptin [Sitagliptin] 100 mg PO DAILY glipiZIDE [Glucotrol] 10 mg PO AC-BID Empagliflozin [Jardiance] 25 mg PO DAILY Podofilox 1 applic TOPICAL DAILY Tamsulosin HCl [Flomax] 0.8 mg PO HS #30 cap Discharge Medication List metFORMIN HCL [Glucophage] 1,000 mg PO BID 12/23/16 [History] Aspirin [Adult Low Dose Aspirin EC] 81 mg PO DAILY 11/01/17 [History] Cholecalciferol [Vitamin D3 (25 Mcg = 1000 Iu)] 50 mcg PO DAILY 06/17/21 [History] Losartan [Cozaar] 50 mg PO DAILY 06/17/21 [History] Rosuvastatin Calcium [Crestor] 40 mg PO DAILY 06/17/21 [History] Empagliflozin [Jardiance] 25 mg PO DAILY 10/03/24 [History] Podofilox 1 applic TOPICAL DAILY 10/03/24 [History] SITagliptin [Sitagliptin] 100 mg PO DAILY 10/03/24 [History] glipiZIDE [Glucotrol] 10 mg PO AC-BID 10/03/24 [History] Gabapentin [Neurontin] 300 mg PO TID 30 Days #90 cap 10/08/24 [Rx] HYDROcodone/APAP 7.5-325MG [[place] 7.5-325] 1 each PO Q6HR PRN 3 Days #12 tab 04/08/25 [Rx] cilostazoL [Pletal] 100 mg PO BID #60 tab 10/08/24 [Rx] Ascorbic Acid [Vitamin C] 1,000 mg PO DAILY #30 tablet 10/15/24 [Rx] Ferrous Sulfate [Iron (65 MG Elemental)] 325 mg PO DAILY #30 tab 10/15/24 [Rx] Folic Acid 1 mg PO DAILY #30 tab 10/15/24 [Rx] Multivitamins, Thera [Multivitamin (formulary)] 1 each PO DAILY #30 tab 10/15/24 [Rx] Tamsulosin HCl [Flomax] 0.8 mg PO HS #30 cap 10/15/24 [Rx] ceFAZolin [Kefzol] 2 gm IVP Q8HR #30 each 10/15/24 [Rx] metroNIDAZOLE [Flagyl] 500 mg PO Q8HR 10 Days #30 tab 10/15/24 [Rx] Follow up Appointment(s)/Referral(s): Dagoberto Alicea DO [Doctor of Osteopathic Medicine] - 10/24/24 8:45 am [facility] [REFERRING] - 1 Week [facility] [NON-STAFF] - 10/16/24 8:00 am Florentino Roldan DO [Primary Care Provider] - 1-2 days Alexa Peters MD [STAFF PHYSICIAN] - 2 Weeks Ambulatory/Diagnostic Orders: Complete Blood Count w/diff [LAB.AMB] Time Frame: 3 Days, Location: None Selected Patient Instructions/Handouts: Osteomyelitis (GEN), Foot Care for People with Diabetes (GEN) Activity/Diet/Wound Care/Special Instructions: Patient may shower but no tub bathing until cleared by surgeon Daily dressing change with Adaptic and Kerlix to left TMA site Heel walk only, wear postop shoe when ambulating Watch incision for signs of infection including increased redness, purulent drainage, fever greater than 100.4 Follow-up with vascular surgeon in 2 weeks Please be sure to follow up with your primary care physician within 1 week of discharge Please be sure to follow up with Infectious Disease within 2 weeks of discharge Please be sure to follow up with Vascular surgery within 2 weeks of discharge Discharge Disposition: HOME WITH HOME HEALTH SERVICES
[2024-10-15 12:33] LABS: Glucose,Whole Blood 336 mg/dL (70-110)
--- NOTE | 2024-10-15 15:09 | P.PN ---
Subjective Progress Note Date: 10/15/24 Principal diagnosis: Reason for follow-up is left diabetic foot infection and bacteremia Patient is a 74-year-old lady with a past medical history of significant for Diabetes Mellitus, Deep Vein Thrombosis (DVT), Eye Disorder, GERD/Reflux, Hyperlipidemia, Hypertension, Prostate Disorder history of diabetic foot infection requiring amputation current smoker presenting to the hospital for evaluation of left foot toe discoloration. Patient is status post transmetatarsal amputation of the left foot completed on 10/04/2024.Patient is status post angiogram and had left superficial femoral artery arthrectomy and balloon dilatation of the left superficial femoral artery procedure completed on 10/11/2024. On today's evaluation that is 10/15/2024, Patient is afebrile this morning patient denies having any chest pain shortness of breath or cough, the patient is currently on room air, patient denies any abdominal pain no diarrhea no nausea no vomiting denies any worsening pain to the left foot. Patient white count is 11.13 hemoglobin is 7.8 Objective - Vital Signs Vital signs: Vital Signs Temp 98.3 F 10/15/24 07:19 Pulse 99 10/15/24 07:19 Resp 16 10/15/24 07:19 BP 130/62 10/15/24 07:19 Pulse Ox 96 10/15/24 07:19 FiO2 Intake & Output 10/14/24 10/15/24 10/15/24 18:59 06:59 18:59 Intake Total 546 Output Total 900 500 Balance -354 -500 Weight 85.729 kg Intake: Oral 236 Blood Product 310 Rc As-1 Unit 310 [id number] Output: Urine 900 500 Other: Voiding Method Urinal Urinal Urinal - Exam GENERAL DESCRIPTION: An elderly male lying in bed in no distress RESPIRATORY SYSTEM: Unlabored breathing , decreased breath sounds at bases HEART: S1 S2 regular rate and rhythm , ABDOMEN: Soft , no tenderness EXTREMITIES:Left foot wound is currently dressed - Labs CBC & Chem 7: 10/15/24 04:11 10/13/24 06:13 Labs: Abnormal Lab Results - Last 24 Hours (Table) 10/14/24 10/14/24 10/15/24 Range/Units 10:40 17:45 04:11 WBC 12.63 H 11.13 H (4.50-10.00) 10*3/uL RBC 2.72 L 2.63 L (4.40-5.60) 10*6/uL Hgb 8.1 L 7.8 L (13.0-17.0) g/dL Hct 23.9 L 23.2 L (39.6-50.0) % RDW 14.9 H (11.5-14.5) % Plt Count 459 H (140-440) 10*3/uL MPV 8.7 L 8.7 L (9.5-12.2) fL Immature Gran # 0.60 H (0.00-0.04) 10*3/uL Neutrophils # (Manual) 9.01 H (1.3-7.7) k/uL Crossmatch See Detail Assessment and Plan (1) Sepsis Current Visit: Yes Status: Acute Code(s): A41.9 - SEPSIS, UNSPECIFIED ORGANISM SNOMED Code(s): 29958538 (2) Diabetic foot infection Current Visit: Yes Status: Acute Code(s): E11.628 - TYPE 2 DIABETES MELLITUS WITH OTHER SKIN COMPLICATIONS; L08.9 - LOCAL INFECTION OF THE SKIN AND SUBCUTAN EOUS TISSUE, UNSP SNOMED Code(s): 191399775 (3) Gangrene of toe of left foot Current Visit: Yes Status: Acute Code(s): I96 - GANGRENE, NOT ELSEWHERE CLASSIFIED SNOMED Code(s): 24003444728476975 (4) Osteomyelitis Current Visit: No Status: Acute Code(s): M86.9 - OSTEOMYELITIS, UNSPECIFIED SNOMED Code(s): 66690855 (5) MSSA bacteremia Current Visit: Yes Status: Acute Code(s): R78.81 - BACTEREMIA; B95.61 - METHICILLIN SUSCEP STAPH INFCT CAUSING DIS CLASSD ELSWHR SNOMED Code(s): 574383159 Plan: 1patient presented hospital with sepsis in this patient who did have a fever tachycardia elevated white committee criteria for SIRS source is left diabetic foot infection with gangrene of the fourth toe and will need to cover for the polymicrobial blanca associated with diabetic foot infection in this patient who did have previous history of MRSA as well as stenotrophomonas 2-patient with multiple antibiotic ALLERGIES that would limit the number of antibiotic safe to use 3-patient is status post left transmetatarsal amputation completed on 10/04/2024 4patient with MSSA bacteremia sourse is left diabetic foot infection, blood culture has been repeated which are so far negative 5patient is status post angiogram as well as arthrectomy and balloon genitoplasty of superficial femoral artery completed on 10/11/2024 6patient white count has almost normalized blood culture repeat has been negative 7plan is for a 10-day course of IV cefazolin and oral Flagyl on discharge and close outpatient follow-up Dictation was produced using [employer] dictation software. please excuse any grammatical, word or spelling errors.
--- NOTE | 2024-10-15 16:17 | IR ---
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 CLINICAL INDICATION:Male, 74 years old with history of ARTERIAL OCCLUSION/PVD; , [facility] FINDINGS: Multiple fluoroscopic images for angiogram. Total fluoroscopy time is 13.6 min. DAP: 30.8 Gycm2 uGym2 mGym2 Please see the operative/procedural note for further details. [facility], , 10/15/2024 4:15 PM
[2024-10-15 17:31] LABS: Glucose,Whole Blood 276 mg/dL (70-110)
[2024-10-15 19:55] LABS: Glucose,Whole Blood 275 mg/dL (70-110)
[2024-10-15] MEDS: INSULIN GLARGINE (LANTUS) 100 UNIT/ML SYR SQ SCH (20:08)
[2024-10-15 20:50] LABS: Glucose,Whole Blood 279 mg/dL (70-110)
[2024-10-16 04:34] LABS: Basophils # (A) 0.04 10*3/uL (0.00-0.10); Basophils % (A) 0.4 %; Eosinophils # (A) 0.19 10*3/uL (0.04-0.35); Eosinophils % (A) 1.8 %; HCT 23.6 % (39.6-50.0); HGB 7.8 g/dL (13.0-17.0); Lymphocytes # (A) 1.37 10*3/uL (0.90-5.00); Lymphocytes % (A) 12.9 %; MCH 29.4 pg (27.0-32.0); MCHC 33.1 g/dL (32.0-37.0); MCV 89.1 fL (80.0-97.0); Mean Platelet Volume 8.9 fL (9.5-12.2); Monocytes % (A) 7.5 %; Neutrophils # (A) 7.78 10*3/uL (1.80-7.70); Neutrophils % (A) 73.2 %; Platelet Count 527 10*3/uL (140-440); RBC 2.65 10*6/uL (4.40-5.60); RDW 15.1 % (11.5-14.5); WBC 10.63 10*3/uL (4.50-10.00)
[2024-10-16 04:51] LABS: African American GFR (CKD) >90 (>60 ml/min/1.73 sqM); Anion Gap 7 mmol/L; Blood Urea Nitrogen 16 mg/dL (9-20); Calcium 8.2 mg/dL (8.4-10.2); Carbon Dioxide 28 mmol/L (22-30); Chloride 98 mmol/L (98-107); Glucose 167 mg/dL (74-99); Non-African American GFR(CKD) 89 (>60 ml/min/1.73 sqM); Potassium 4.4 mmol/L (3.5-5.1); Sodium 133 mmol/L (137-145)
[2024-10-16 06:44] LABS: Glucose,Whole Blood 180 mg/dL (70-110)
[2024-10-16 07:41] VITALS: BP 116/54; PULSE 87; RESP 16; TEMP 97.8
[2024-10-16 12:21] LABS: Glucose,Whole Blood 252 mg/dL (70-110)
--- NOTE | 2024-10-17 13:04 | P.PN ---
Subjective Progress Note Date: 10/16/24 Principal diagnosis: Reason for follow-up is left diabetic foot infection and bacteremia Patient is a 74-year-old lady with a past medical history of significant for Diabetes Mellitus, Deep Vein Thrombosis (DVT), Eye Disorder, GERD/Reflux, Hyperlipidemia, Hypertension, Prostate Disorder history of diabetic foot infection requiring amputation current smoker presenting to the hospital for evaluation of left foot toe discoloration. Patient is status post transmetatarsal amputation of the left foot completed on 10/04/2024.Patient is status post angiogram and had left superficial femoral artery arthrectomy and balloon dilatation of the left superficial femoral artery procedure completed on 10/11/2024. On today's evaluation that is 10/16/2024,the patient denies any fever or any chills, patient is breathing comfortably on room air, the patient denies chest pain shortness of breath and no significant cough, patient denies abdominal pain, no nausea vomiting or diarrhea. Pain to the right foot is currently controlled. Patient white count is 10.63, creatinine 0.78 Objective - Vital Signs Vital signs: Vital Signs Temp 97.8 F 10/16/24 07:05 Pulse 87 10/16/24 07:05 Resp 16 10/16/24 07:05 BP 116/54 10/16/24 07:05 Pulse Ox 96 10/16/24 07:05 FiO2 Intake & Output 10/15/24 10/16/24 10/16/24 18:59 06:59 18:59 Intake Total 118 Output Total 1500 1200 Balance -1500 -1200 118 Intake: Oral 118 Output: Urine 1500 1200 Other: Voiding Method Urinal Urinal Urinal - Exam GENERAL DESCRIPTION: An elderly male lying in bed in no distress RESPIRATORY SYSTEM: Unlabored breathing , decreased breath sounds at bases HEART: S1 S2 regular rate and rhythm , ABDOMEN: Soft , no tenderness EXTREMITIES:Left foot wound is currently dressed - Labs CBC & Chem 7: 10/16/24 03:43 10/16/24 03:43 Labs: Abnormal Lab Results - Last 24 Hours (Table) 10/15/24 10/15/24 10/15/24 Range/Units 12:32 17:30 19:54 WBC (4.50-10.00) 10*3/uL RBC (4.40-5.60) 10*6/uL Hgb (13.0-17.0) g/dL Hct (39.6-50.0) % RDW (11.5-14.5) % Plt Count (140-440) 10*3/uL MPV (9.5-12.2) fL Immature Gran # (0.00-0.04) 10*3/uL Neutrophils # (1.80-7.70) 10*3/uL Sodium (137-145) mmol/L Glucose (74-99) mg/dL POC Glucose (mg/dL) 336 H 276 H 275 H (70-110) mg/dL Calcium (8.4-10.2) mg/dL 10/15/24 10/16/24 10/16/24 Range/Units 20:49 03:43 03:43 WBC 10.63 H (4.50-10.00) 10*3/uL RBC 2.65 L (4.40-5.60) 10*6/uL Hgb 7.8 L (13.0-17.0) g/dL Hct 23.6 L (39.6-50.0) % RDW 15.1 H (11.5-14.5) % Plt Count 527 H (140-440) 10*3/uL MPV 8.9 L (9.5-12.2) fL Immature Gran # 0.45 H (0.00-0.04) 10*3/uL Neutrophils # 7.78 H (1.80-7.70) 10*3/uL Sodium 133 L (137-145) mmol/L Glucose 167 H (74-99) mg/dL POC Glucose (mg/dL) 279 H (70-110) mg/dL Calcium 8.2 L (8.4-10.2) mg/dL 10/16/24 Range/Units 06:43 WBC (4.50-10.00) 10*3/uL RBC (4.40-5.60) 10*6/uL Hgb (13.0-17.0) g/dL Hct (39.6-50.0) % RDW (11.5-14.5) % Plt Count (140-440) 10*3/uL MPV (9.5-12.2) fL Immature Gran # (0.00-0.04) 10*3/uL Neutrophils # (1.80-7.70) 10*3/uL Sodium (137-145) mmol/L Glucose (74-99) mg/dL POC Glucose (mg/dL) 180 H (70-110) mg/dL Calcium (8.4-10.2) mg/dL Assessment and Plan (1) Sepsis Status: Acute Code(s): A41.9 - SEPSIS, UNSPECIFIED ORGANISM SNOMED Code(s): 29596607 (2) Diabetic foot infection Status: Acute Code(s): E11.628 - TYPE 2 DIABETES MELLITUS WITH OTHER SKIN COMPLICATIONS; L08.9 - LOCAL INFECTION OF THE SKIN AND SUBCUTANEOUS TISSUE, UNSP SNOMED Code(s): 291742376 (3) Gangrene of toe of left foot Status: Acute Code(s): I96 - GANGRENE, NOT ELSEWHERE CLASSIFIED SNOMED Code(s): 15814057171656442 (4) Osteomyelitis Status: Acute Code(s): M86.9 - OSTEOMYELITIS, UNSPECIFIED SNOMED Code(s): 23950199 (5) MSSA bacteremia Status: Acute Code(s): R78.81 - BACTEREMIA; B95.61 - METHICILLIN SUSCEP STAPH INFCT CAUSING DIS CLASSD ELSWHR SNOMED Code(s): 706785772 Plan: 1patient presented hospital with sepsis in this patient who did have a fever tachycardia elevated white count meeting criteria for SIRS source is left diabetic foot infection with gangrene of the fourth toe patient is status post l eft transmetatarsal amputation completed on 10/04/2024 2patient with MSSA bacteremia sourse is left diabetic foot infection, blood culture has been repeated which are so far negative 3patient is status post angiogram as well as arthrectomy and balloon genitoplasty of superficial femoral artery completed on 10/11/2024 4patient white count has normalized blood culture repeat has been negative he will continue with the cefazolin and Flagyl on discharge and close outpatient follow-up Dictation was produced using [employer] dictation software. please excuse any grammatical, word or spelling errors. Time with Patient: Less than 30
== END 2024-10-16 13:22 | disposition home health service (06) | DRG 853 ==
LOC: EC 09:39 → 4SSUR 11:35 → 6NMEDSUR 10-11 16:15
PROVIDERS: ADMIT Student in an Organized Health Care Education/Training Program; ATTEND Student in an Organized Health Care Education/Training Program
PROC: 0Y6N0ZD Detachment at Left Foot, Partial 4th Ray, Open Approach (ICD-10-PCS; 2024-10-04)
PROC: 0Y6N0ZF Detachment at Left Foot, Partial 5th Ray, Open Approach (ICD-10-PCS; 2024-10-04)
PROC: 0Y6N0ZC Detachment at Left Foot, Partial 3rd Ray, Open Approach (ICD-10-PCS; 2024-10-04)
PROC: B41G1ZZ Fluoroscopy of Left Lower Extremity Arteries using Low Osmolar Contrast (ICD-10-PCS; principal; 2024-10-11 11:30)
PROC: 04CL3ZZ Extirpation of Matter from Left Femoral Artery, Percutaneous Approach (ICD-10-PCS; principal; 2024-10-11 11:30)
PROC: 047L3ZZ Dilation of Left Femoral Artery, Percutaneous Approach (ICD-10-PCS; principal; 2024-10-11 11:30)
PROC: B4101ZZ Fluoroscopy of Abdominal Aorta using Low Osmolar Contrast (ICD-10-PCS; principal; 2024-10-11 11:30)
PROC: 05HC33Z Insertion of Infusion Device into Left Basilic Vein, Percutaneous Approach (ICD-10-PCS; 2024-10-14)
PROC: 30233N1 Transfusion of Nonautologous Red Blood Cells into Peripheral Vein, Percutaneous Approach (ICD-10-PCS; 2024-10-14)
DX: A41.01 Sepsis due to Methicillin susceptible Staphylococcus aureus (principal); I77.77 Dissection of artery of lower extremity; I70.262 Atherosclerosis of native arteries of extremities with gangrene, left leg; D63.8 Anemia in other chronic diseases classified elsewhere; E86.1 Hypovolemia; E11.52 Type 2 diabetes mellitus with diabetic peripheral angiopathy with gangrene; I10 Essential (primary) hypertension; M86.9 Osteomyelitis, unspecified; E87.1 Hypo-osmolality and hyponatremia; L03.116 Cellulitis of left lower limb; E11.69 Type 2 diabetes mellitus with other specified complication; E11.628 Type 2 diabetes mellitus with other skin complications; Z89.412 Acquired absence of left great toe; Z89.422 Acquired absence of other left toe(s); E78.5 Hyperlipidemia, unspecified; N40.0 Benign prostatic hyperplasia without lower urinary tract symptoms; H35.30 Unspecified macular degeneration; F17.210 Nicotine dependence, cigarettes, uncomplicated; Z79.82 Long term (current) use of aspirin; Z79.84 Long term (current) use of oral hypoglycemic drugs; Z79.899 Other long term (current) drug therapy; Z86.718 Personal history of other venous thrombosis and embolism; Z86.14 Personal history of Methicillin resistant Staphylococcus aureus infection; Z88.1 Allergy status to other antibiotic agents; Z88.2 Allergy status to sulfonamides; Z88.8 Allergy status to other drugs, medicaments and biological substances
CPT/HCPCS: 36410; 36415; 37225; 51798; 75625; 75710; 76937; 80048; 80053; 82565; 82607; 82728; 82746; 83036; 83540; 83550; 83605; 83735; 84295; 84466; 85025; 85027; 85045; 85379; 85610; 85652; 85730; 86140; 86850; 86900; 86901; 86920; 87040; 87070; 87075; 87077; 87186; 87205; 88307; 93306; 93922; 96361; 96365; 96366; 96367; 96375; 96376; 99291

== ENCOUNTER 2024-10-16 18:51 | Emergency (ER) | payer OTHER, MEDICARE ==
[2024-10-16 19:17] VITALS: RESP 18
[2024-10-16] MEDS: ALTEPLASE 2 MG VIAL (CATHFLO) IV STA (20:03)
--- NOTE | 2024-10-16 20:32 | ED ---
Recheck HPI - General Chief Complaint: Recheck/Abnormal Lab/Rx Stated Complaint: L arm issue Time Seen by Provider: 10/16/24 19:18 Source: patient Mode of arrival: wheelchair Limitations: no limitations - History of Present Illness Initial Comments: 74-year-old male presenting with chief complaint of issues with his PICC line. Patient was recently admitted here for osteomyelitis and had toe amputation performed. He was sent home this morning with a PICC line for 10 days of cefazolin and oral Flagyl. States that his home care nurse came today and was unable to flush the line. He called Dr. Peters who told him to come to the ER. He is not having any fever or arm pain at this time. - Related Data Home Medications Medication Instructions Recorded Confirmed metFORMIN HCL [Glucophage] 1,000 mg PO BID 12/23/16 10/17/24 Aspirin [Adult Low Dose Aspirin EC] 81 mg PO DAILY 11/01/17 10/17/24 Cholecalciferol [Vitamin D3 (25 50 mcg PO DAILY 06/17/21 10/17/24 Mcg = 1000 Iu)] Losartan [Cozaar] 50 mg PO DAILY 06/17/21 10/17/24 Rosuvastatin Calcium [Crestor] 40 mg PO DAILY 06/17/21 10/17/24 Empagliflozin [Jardiance] 25 mg PO DAILY 10/03/24 10/17/24 Podofilox 1 applic TOPICAL DAILY 10/03/24 10/17/24 SITagliptin [Sitagliptin] 100 mg PO DAILY 10/03/24 10/17/24 glipiZIDE [Glucotrol] 10 mg PO AC-BID 10/03/24 10/17/24 HYDROcodone/APAP 7.5-325MG [[place] 1 tab PO Q6HR PRN 10/17/24 10/17/24 7.5-325] Multivitamins, Thera [Multivitamin 1 tab PO DAILY 10/17/24 10/17/24 (formulary)] Previous Rx's Medication Instructions Recorded Gabapentin [Neurontin] 300 mg PO TID 30 Days #90 cap 10/08/24 cilostazoL [Pletal] 100 mg PO BID #60 tab 10/08/24 Ascorbic Acid [Vitamin C] 1,000 mg PO DAILY #30 tablet 10/15/24 Ferrous Sulfate [Iron (65 MG 325 mg PO DAILY #30 tab 10/15/24 Elemental)] Folic Acid 1 mg PO DAILY #30 tab 10/15/24 Tamsulosin HCl [Flomax] 0.8 mg PO HS #30 cap 10/15/24 ceFAZolin [Kefzol] 2 gm IVP Q8HR #30 each 10/15/24 metroNIDAZOLE [Flagyl] 500 mg PO Q8HR 10 Days #30 tab 10/15/24 Allergies Allergy/AdvReac Type Severity Reaction Status Date / Time sulfamethoxazole Allergy Severe joint Verified 10/17/24 12:45 [From Bactrim] pain, aches ciprofloxacin [From Cipro] Allergy joint Verified 10/17/24 12:45 pain, aches lisinopril Allergy joint Verified 10/17/24 12:45 pain, cough trimethoprim [From Bactrim] Allergy joint Verified 10/17/24 12:45 pain, aches NABIL Inhibitors AdvReac Cough Verified 10/17/24 12:45 Review of Systems ROS Statement: Those systems with pertinent positive or pertinent negative responses have been documented in the HPI. ROS Other: All systems not noted in ROS Statement are negative. Past Medical History Past Medical History: Diabetes Mellitus, Deep Vein Thrombosis (DVT), Eye Disorder, GERD/Reflux, Hyperlipidemia, Hypertension, Prostate Disorder Additional Past Medical History / Comment(s): L foot osteomylitis, DJD, DVT R leg, R eye macular degeneration, BPH, benign colon polyps. History of Any Multi-Drug Resistant Organisms: MRSA Date of last positivie culture/infection: 06/19/21 MDRO Source:: MRSA TOE Past Surgical History: Orthopedic Surgery, Tonsillectomy Additional Past Surgical History / Comment(s): L great toe amputation, L 2nd toe "bones disconnected", colonoscopy with polypectomy, bilateral cataract removals Past Anesthesia/Blood Transfusion Reactions: No Reported Reaction Past Psychological History: No Psychological Hx Reported Smoking Status: Current every day smoker Past Alcohol Use History: None Reported Past Drug Use History: None Reported - Past Family History Father History Unknown: Yes Family Medical History: No Reported History Mother Family Medical History: No Reported History Additional Family Medical History / Comment(s): Mother was healthy General Exam Limitations: no limitations General appearance: alert, in no apparent distress Head exam: Present: atraumatic, normocephalic, normal inspection Eye exam: Present: normal appearance, EOMI Neck exam: Present: normal inspection. Absent: meningismus Respiratory exam: Absent: respiratory distress Left Upper Arm exam: Present: normal inspection Neurological exam: Present: alert, oriented X3 Psychiatric exam: Present: normal affect, normal mood Skin exam: Present: warm, dry, normal color Course Vital Signs 10/16/24 10/16/24 19:12 22:34 Temperature 97.9 F 97.7 F Pulse Rate 117 H 78 Respiratory 18 18 Rate Blood Pressure 105/63 124/79 O2 Sat by Pulse 96 98 Oximetry Medical Decision Making - Medical Decision Making Was pt. sent in by a medical professional or institution (NURIS Aguayo, SQUAD LEADER, urgent care, hospital, or long term...) When possible be specific @ -No Did you speak to anyone other than the patient for history (EMS, parent, family, police, friend...)? What history was obtained from this source @ -No Did you review nursing and triage notes (agree or disagree)? Why? @ -I reviewed and agree with nursing and triage notes Were old charts reviewed (outside hosp., previous admission, EMS record, old EKG, old radiological studies, urgent care reports/EKG's, long term records)? Report findings @ -No old charts were reviewed Differential Diagnosis (chest pain, altered mental status, abdominal pain women, abdominal pain men, vaginal bleeding, weakness, fever, dyspnea, syncope, headache, dizziness, GI bleed, back pain, seizure, CVA, palpatations, mental health, musculoskeletal)? @ -Differential includes occlusion, kink in the picc line not an all-inclusive list EKG interpreted by me (3pts min.). @ -As above X-rays interpreted by me (1pt min.). @ -None done CT interpreted by me (1pt min.). @ -None done U/S interpreted by me (1pt. min.). @ -None done What testing was considered but not performed or refused? (CT, X-rays, U/S, labs)? Why? @ -None What meds were considered but not given or refused? Why? @ -None Did you discuss the management of the patient with other professionals (professionals i.e. NURIS Aguayo, SQUAD LEADER, lab, RT, psych nurse, social media marketing specialist, director channel, teacher, labor relations officer, caser shoe parts)? Give summary @ -No Was smoking cessation discussed for >3mins.? @ -No Was critical care preformed (if so, how long)? @ -No Were there social determinants of health that impacted care today? How? (Homelessness, low income, unemployed, alcoholism, drug addiction, transportation, low edu. Level, literacy, decrease access to med. care, long-term, rehab)? @ -No Was there de-escalation of care discussed even if they declined (Discuss DNR or withdrawal of care, Hospice)? DNR status @ -No What co-morbidities impacted this encounter? (DM, HTN, Smoking, COPD, CAD, Cancer, CVA, ARF, Chemo, Hep., AIDS, mental health diagnosis, sleep apnea, morbid obesity)? @ -None Was patient admitted / discharged? Hospital course, mention meds given and route, prescriptions, significant lab abnormalities, going to OR and other pertinent info. @ -74-year-old male presenting with chief complaint of "my PICC line will not work". Patient was discharged earlier today on 10 days of cefazolin for osteomyelitis, as well as oral metronidazole. He had home care come today and they were unable to flush his PICC line, he was told to come to the ER. Here we are also unable to flush the line. We are unable to inject any alteplase to help dissolve any possible clot. Patient is given his dose of cefazolin here in the ER as well as his oral Flagyl. He will come back in the morning when we have more resources available to coordinate getting his PICC line fixed. Follow-up with PCP. Report back to ER with any new or worsening symptoms. Discussed return parameters and answered all questions. Patient conveyed verbal understanding and agreed to the plan. I discussed this case in detail with my attending Dr. De La Torre Undiagnosed new problem with uncertain prognosis? @ -No Drug Therapy requiring intensive monitoring for toxicity (Heparin, Nitro, Insulin, Cardizem)? @ -No Were any procedures done? @ -No Diagnosis/symptom? @ -PICC line occlusion Acute, or Chronic, or Acute on Chronic? @ -Acute Uncomplicated (without systemic symptoms) or Complicated (systemic symptoms)? @ -Uncomplicated Side effects of treatment? @ -No Exacerbation, Progression, or Severe Exacerbation? @ -No Poses a threat to life or bodily function? How? (Chest pain, [place], PR, pneumonia, PE, COPD, DKA, ARF, appy, cholecystitis, CVA, Diverticulitis, Homicidal, Suicidal, threat to staff... and all critical care pts) @ -There is a threat if the patient does not return as agreed upon and does not get his continued antibiotics Disposition Clinical Impression: Occluded PICC line Disposition: HOME SELF-CARE Condition: Stable Additional Instructions: Come back early in the morning around 6 AM to the ER to have your PICC line reassessed by the appropriate team. Report back to ER with any new or worsening symptoms. Is patient prescribed a controlled substance at d/c from ED?: No Referrals: Florentino Roldan DO [Primary Care Provider] - 1-2 days Time of Disposition: 20:32
[2024-10-16] MEDS: ceFAZolin 2 GM in DEXTROSE 5% IN WATER 50 ML IVPB ONE (21:28)
[2024-10-16] MEDS: metroNIDAZOLE 500 MG TAB PO STA (22:10)
[2024-10-16] MEDS: HYDROcodone/APAP 7.5-325MG 1 EACH TAB PO ONE (22:10)
[2024-10-16 22:35] VITALS: BP 124/79; PULSE 78; TEMP 97.7
== END 2024-10-16 22:35 | disposition home or self-care (01) ==
LOC: EC 18:51
DX: T82.594A Other mechanical complication of infusion catheter, initial encounter (principal); F17.200 Nicotine dependence, unspecified, uncomplicated; Z88.2 Allergy status to sulfonamides; Z88.1 Allergy status to other antibiotic agents; Z88.8 Allergy status to other drugs, medicaments and biological substances
CPT/HCPCS: 99283; 96365; 36593; J0690; J2997

== ENCOUNTER 2024-10-17 08:25 | Emergency (ER) | payer OTHER, MEDICARE ==
[2024-10-17 08:30] VITALS: TEMP 97.9
--- NOTE | 2024-10-17 08:41 | ED ---
Recheck HPI - General Chief Complaint: Recheck/Abnormal Lab/Rx Stated Complaint: pic line issue Time Seen by Provider: 10/17/24 08:33 Source: patient, RN notes reviewed Mode of arrival: wheelchair Limitations: no limitations - History of Present Illness Initial Comments: This is a 74-year-old male With History of Diabetes this is a 74-year-old male with history of diabetes, peripheral vascular disease, osteomyelitis who is presenting to the emergency department with concerns of malfunctioning PICC line. Patient was recently discharged in the hospital with PICC line in place to receive at home antibiotics due to recent osteomyelitis. Patient states that yesterday at home care came to his house where they were unable to flush his PICC line restrictor port Emergency Department. Patient was evaluated emergency department yesterday and started to return in the morning for further evaluation. He denies pain around the PICC line site, discharge, fevers or chills. Follows with Dr. Peters. - Related Data Home Medications Medication Instructions Recorded Confirmed metFORMIN HCL [Glucophage] 1,000 mg PO BID 12/23/16 10/17/24 Aspirin [Adult Low Dose Aspirin EC] 81 mg PO DAILY 11/01/17 10/17/24 Cholecalciferol [Vitamin D3 (25 50 mcg PO DAILY 06/17/21 10/17/24 Mcg = 1000 Iu)] Losartan [Cozaar] 50 mg PO DAILY 06/17/21 10/17/24 Rosuvastatin Calcium [Crestor] 40 mg PO DAILY 06/17/21 10/17/24 Empagliflozin [Jardiance] 25 mg PO DAILY 10/03/24 10/17/24 Podofilox 1 applic TOPICAL DAILY 10/03/24 10/17/24 SITagliptin [Sitagliptin] 100 mg PO DAILY 10/03/24 10/17/24 glipiZIDE [Glucotrol] 10 mg PO AC-BID 10/03/24 10/17/24 HYDROcodone/APAP 7.5-325MG [[place] 1 tab PO Q6HR PRN 10/17/24 10/17/24 7.5-325] Multivitamins, Thera [Multivitamin 1 tab PO DAILY 10/17/24 10/17/24 (formulary)] Previous Rx's Medication Instructions Recorded Gabapentin [Neurontin] 300 mg PO TID 30 Days #90 cap 10/08/24 cilostazoL [Pletal] 100 mg PO BID #60 tab 10/08/24 Ascorbic Acid [Vitamin C] 1,000 mg PO DAILY #30 tablet 10/15/24 Ferrous Sulfate [Iron (65 MG 325 mg PO DAILY #30 tab 10/15/24 Elemental)] Folic Acid 1 mg PO DAILY #30 tab 10/15/24 Tamsulosin HCl [Flomax] 0.8 mg PO HS #30 cap 10/15/24 ceFAZolin [Kefzol] 2 gm IVP Q8HR #30 each 10/15/24 metroNIDAZOLE [Flagyl] 500 mg PO Q8HR 10 Days #30 tab 10/15/24 Allergies Allergy/AdvReac Type Severity Reaction Status Date / Time sulfamethoxazole Allergy Severe joint Verified 10/17/24 12:45 [From Bactrim] pain, aches ciprofloxacin [From Cipro] Allergy joint Verified 10/17/24 12:45 pain, aches lisinopril Allergy joint Verified 10/17/24 12:45 pain, cough trimethoprim [From Bactrim] Allergy joint Verified 10/17/24 12:45 pain, aches NABIL Inhibitors AdvReac Cough Verified 10/17/24 12:45 Review of Systems ROS Statement: Those systems with pertinent positive or pertinent negative responses have been documented in the HPI. ROS Other: All systems not noted in ROS Statement are negative. Past Medical History Past Medical History: Diabetes Mellitus, Deep Vein Thrombosis (DVT), Eye Disorder, GERD/Reflux, Hyperlipidemia, Hypertension, Prostate Disorder Additional Past Medical History / Comment(s): L foot osteomylitis, DJD, DVT R leg, R eye macular degeneration, BPH, benign colon polyps. History of Any Multi-Drug Resistant Organisms: MRSA Date of last positivie culture/infection: 06/19/21 MDRO Source:: MRSA TOE Past Surgical History: Orthopedic Surgery, Tonsillectomy Additional Past Surgical History / Comment(s): L great toe amputation, L 2nd toe "bones disconnected", colonoscopy with polypectomy, bilateral cataract removals Past Anesthesia/Blood Transfusion Reactions: No Reported Reaction Past Psychological History: No Psychological Hx Reported Smoking Status: Current every day smoker Past Alcohol Use History: None Reported Past Drug Use History: None Reported - Past Family History Father History Unknown: Yes Family Medical History: No Reported History Mother Family Medical History: No Reported History Additional Family Medical History / Comment(s): Mother was healthy General Exam Limitations: no limitations General appearance: alert, in no apparent distress ENT exam: Present: normal exam, mucous membranes moist Neck exam: Present: normal inspection. Absent: tenderness, meningismus, lymphadenopathy Respiratory exam: Present: normal lung sounds bilaterally. Absent: respiratory distress, wheezes, rales, rhonchi, stridor Cardiovascular Exam: Present: regular rate, normal rhythm, normal heart sounds. Absent: systolic murmur, diastolic murmur, rubs, gallop, clicks GI/Abdominal exam: Present: soft, normal bowel sounds. Absent: distended, tenderness, guarding, rebound, rigid Left Elbow exam: Present: normal inspection, other (PICC line AC). Absent: tenderness Back exam: Present: normal inspection Neurological exam: Present: alert, oriented X3, CN II-XII intact Course Vital Signs 10/17/24 10/17/24 08:28 11:24 Temperature 97.9 F Pulse Rate 112 H 89 Respiratory 20 20 Rate Blood Pressure 130/62 119/73 O2 Sat by Pulse 96 95 Oximetry Medical Decision Making - Medical Decision Making Was pt. sent in by a medical professional or institution (, PA, HOD CARRIER, urgent care, hospital, or longterm...) When possible be specific @ -No Did you speak to anyone other than the patient for history (EMS, parent, family, police, friend...)? What history was obtained from this source @ -No Did you review nursing and triage notes (agree or disagree)? Why? @ -I reviewed and agree with nursing and triage notes Were old charts reviewed (outside hosp., previous admission, EMS record, old EKG, old radiological studies, urgent care reports/EKG's, longterm records)? Report findings @ -Reviewed patient's ER visit note from 10/16/2024 for attempted to flush PICC line however was unsuccessful Differential Diagnosis (chest pain, altered mental status, abdominal pain women, abdominal pain men, vaginal bleeding, weakness, fever, dyspnea, syncope, headache, dizziness, GI bleed, back pain, seizure, CVA, palpatations, mental health, musculoskeletal)? @PICC line occlusion, PICC line malfunction, this list is not all inclusive EKG interpreted by me (3pts min.). @ -None X-rays interpreted by me (1pt min.). @ -None done CT interpreted by me (1pt min.). @ -None done U/S interpreted by me (1pt. min.). @ -None done What testing was considered but not performed or refused? (CT, X-rays, U/S, labs)? Why? @ -None What meds were considered but not given or refused? Why? @ -None Did you discuss the management of the patient with other professionals (professionals i.e. , PA, HOD CARRIER, lab, RT, psych nurse, criminal justice social worker, thread weaver, teacher, chief resource officer, case packer)? Give summary @ -I spoke with Dr. Marshall, vascular surgeon, who recommended contacting HOD CARRIER (ahmet) for further in-person evaluation of the patient. Was smoking cessation discussed for >3mins.? @ -No Was critical care preformed (if so, how long)? @ -No Were there social determinants of health that impacted care today? How? (Homelessness, low income, unemployed, alcoholism, drug addiction, transp ortation, low edu. Level, literacy, decrease access to med. care, longterm, rehab)? @ -No Was there de-escalation of care discussed even if they declined (Discuss DNR or withdrawal of care, Hospice)? DNR status @ -No What co-morbidities impacted this encounter? (DM, HTN, Smoking, COPD, CAD, Cancer, CVA, ARF, Chemo, Hep., AIDS, mental health diagnosis, sleep apnea, morbid obesity)? @ -None Was patient admitted / discharged? Hospital course, mention meds given and route, prescriptions, significant lab abnormalities, going to OR and other pertinent info. @ -Discharge. 74 male presenting with PICC line malfunction. Patient was evaluated by vascular where order for new midline was placed. Midline is placed and patient stable for discharge. Patient was offered infusion of IV antibiotics or states that he will complete antibiotics while he is at home. He is provided with oral Flagyl. Return parameters discussed. Case discussed with Dr. Vines Undiagnosed new problem with uncertain prognosis? @ -No Drug Therapy requiring intensive monitoring for toxicity (Heparin, Nitro, Insulin, Cardizem)? @ -No Were any procedures done? @ -No Diagnosis/symptom? @ -Midline malfunction Acute, or Chronic, or Acute on Chronic? @ -Acute Uncomplicated (without systemic symptoms) or Complicated (systemic symptoms)? @ -Uncomplicated Side effects of treatment? @ -No Exacerbation, Progression, or Severe Exacerbation? @ -No Poses a threat to life or bodily function? How? (Chest pain, USA, PA, pneumonia, PE, COPD, DKA, ARF, appy, cholecystitis, CVA, Diverticulitis, Homicidal, Suicidal, threat to staff... and all critical care pts) @ -No Disposition Clinical Impression: Occluded PICC line Disposition: HOME SELF-CARE Condition: Stable Additional Instructions: Please return to the Emergency Department if symptoms worsen or any other concerns. Is patient prescribed a controlled substance at d/c from ED?: No Referrals: Florentino Roldan DO [Primary Care Provider] - 1-2 days Time of Disposition: 13:05
[2024-10-17] MEDS: ALTEPLASE 2 MG VIAL (CATHFLO) IV STA (09:02)
--- NOTE | 2024-10-17 10:56 | P.GSCN ---
History of Present Illness Consult date: 10/17/24 Reason for Consult: Malfunctioning PICC line Requesting physician: Veronica Flanagan History of present illness: This a pleasant 74-year-old male recently admitted for infected diabetic foot wound status post transmetatarsal amputation. He had a midline placed in his left arm on 10/14/2024 from cardiovascular nurse. Patient was discharged yesterday and supposed to get IV antibiotics. He went home his home care nurse was unable to flush patient's midline. He came in yesterday evening to the emergency department. He then was discharged and told to come back in the morning. He is here for reevaluation of his reported PICC line however again it is a midline IV that was placed. Nursing had attempted to infuse Cathflo into midline. However would not flush. Vascular surgery was consulted for malfunctioning PICC line. Patient denies any pain, swelling or drainage around IV site. Review of Systems A 14 point review systems was completed all pertinent positives and negatives as stated in the HPI. Past Medical History Past Medical History: Diabetes Mellitus, Deep Vein Thrombosis (DVT), Eye Disorder, GERD/Reflux, Hyperlipidemia, Hypertension, Prostate Disorder Additional Past Medical History / Comment(s): L foot osteomylitis, DJD, DVT R leg, R eye macular degeneration, BPH, benign colon polyps. History of Any Multi-Drug Resistant Organisms: MRSA Year Discovered:: 06/19/21 MDRO Source:: MRSA TOE Past Surgical History: Orthopedic Surgery, Tonsillectomy Additional Past Surgical History / Comment(s): L great toe amputation, L 2nd toe "bones disconnected", colonoscopy with polypectomy, bilateral cataract removals Past Anesthesia/Blood Transfusion Reactions: No Reported Reaction Past Psychological History: No Psychological Hx Reported Smoking Status: Current every day smoker Past Alcohol Use History: None Reported Past Drug Use History: None Reported - Past Family History Father History Unknown: Yes Family Medical History: No Reported History Mother Family Medical History: No Reported History Additional Family Medical History / Comment(s): Mother was healthy Medications and Allergies Home Medications Medication Instructions Recorded Confirmed Type metFORMIN HCL [Glucophage] 1,000 mg PO BID 12/23/16 10/03/24 History Aspirin [Adult Low Dose Aspirin EC] 81 mg PO DAILY 11/01/17 10/03/24 History Cholecalciferol [Vitamin D3 (25 50 mcg PO DAILY 06/17/21 10/03/24 History Mcg = 1000 Iu)] Losartan [Cozaar] 50 mg PO DAILY 06/17/21 10/03/24 History Rosuvastatin Calcium [Crestor] 40 mg PO DAILY 06/17/21 10/03/24 History Empagliflozin [Jardiance] 25 mg PO DAILY 10/03/24 10/03/24 History Podofilox 1 applic TOPICAL DAILY 10/03/24 10/03/24 History SITagliptin [Sitagliptin] 100 mg PO DAILY 10/03/24 10/03/24 History glipiZIDE [Glucotrol] 10 mg PO AC-BID 10/03/24 10/03/24 History Gabapentin [Neurontin] 300 mg PO TID 30 Days #90 cap 10/08/24 Rx HYDROcodone/APAP 7.5-325MG [[place] 1 each PO Q6HR PRN 3 Days #12 tab 10/08/24 Rx 7.5-325] cilostazoL [Pletal] 100 mg PO BID #60 tab 10/08/24 Rx Ascorbic Acid [Vitamin C] 1,000 mg PO DAILY #30 tablet 10/15/24 Rx Ferrous Sulfate [Iron (65 MG 325 mg PO DAILY #30 tab 10/15/24 Rx Elemental)] Folic Acid 1 mg PO DAILY #30 tab 10/15/24 Rx Multivitamins, Thera [Multivitamin 1 each PO DAILY #30 tab 10/15/24 Rx (formulary)] Tamsulosin HCl [Flomax] 0.8 mg PO HS #30 cap 10/15/24 Rx ceFAZolin [Kefzol] 2 gm IVP Q8HR #30 each 10/15/24 Rx metroNIDAZOLE [Flagyl] 500 mg PO Q8HR 10 Days #30 tab 10/15/24 Rx Allergies Allergy/AdvReac Type Severity Reaction Status Date / Time sulfamethoxazole Allergy Severe joint Verified 10/16/24 19:16 [From Bactrim] pain, aches ciprofloxacin [From Cipro] Allergy joint Verified 10/16/24 19:16 pain, aches lisinopril Allergy joint Verified 10/16/24 19:16 pain, cough trimethoprim [From Bactrim] Allergy joint Verified 10/16/24 19:16 pain, aches NABIL Inhibitors AdvReac Cough Verified 10/16/24 19:16 Surgical - Exam Vital Signs Temp Pulse Resp BP Pulse Ox 97.9 F 112 H 20 130/62 96 10/17/24 08:28 10/17/24 08:28 10/17/24 08:28 10/17/24 08:28 10/17/24 08:28 General appearance: The patient is alert, oriented, appears in no acute distress. HET: Head is normocephalic and atraumatic. Neck: Supple. Heart: Regular. Lungs: Equal expansion, normal respiratory effort. Abdomen: Soft, nontender, nondistended. Extremities: Left upper extremity with midline IV, no surrounding redness, swelling or drainage. Neurological: No focal deficits. Alert and oriented Assessment and Plan Assessment: 1. Malfunctioning midline 2. Need for outpatient IV antibiotics Plan: 1. Discontinue left upper extremity midline 2. Midline ordered. CVL charge nurse notified patient needs midline placed 3. No indication for further workup or vascular surgical intervention from vascular surgery Thank you for this consultation, we will sign off at this time. The impression and plan of care has been dictated as directed. Dr. Robbie Melchor I performed a history and examination of this patient, discussed the same with the dictator. I agree with the dictator's note ,documented as a scribe. Any additional findings or plans will be noted.
[2024-10-17] MEDS: metroNIDAZOLE 500 MG TAB PO STA (12:36)
[2024-10-17 13:07] VITALS: BP 139/71; PULSE 95; RESP 18
== END 2024-10-17 13:07 | disposition home or self-care (01) ==
LOC: EC 08:25
DX: T80.211A Bloodstream infection due to central venous catheter, initial encounter (principal); E11.51 Type 2 diabetes mellitus with diabetic peripheral angiopathy without gangrene; F17.200 Nicotine dependence, unspecified, uncomplicated; Z88.1 Allergy status to other antibiotic agents; Z88.2 Allergy status to sulfonamides; Z88.8 Allergy status to other drugs, medicaments and biological substances
CPT/HCPCS: 99284; 36569; J2997

== ENCOUNTER 2024-10-24 09:53 | Inpatient (IN) | payer OTHER, MEDICARE ==
[2024-10-24] MEDS: AMPICILLIN-SULBACTAM 3 GM in SODIUM CHLORIDE 0.9% 100 ML IVPB STA (11:03)
[2024-10-24 11:27] LABS: ALT 6 U/L (4-49); African American GFR (CKD) >90 (>60 ml/min/1.73 sqM); Albumin 3.2 g/dL (3.5-5.0); Anion Gap 7 mmol/L; Blood Urea Nitrogen 12 mg/dL (9-20); Calcium 8.6 mg/dL (8.4-10.2); Carbon Dioxide 27 mmol/L (22-30); Chloride 101 mmol/L (98-107); Glucose 257 mg/dL (74-99); Non-African American GFR(CKD) >90 (>60 ml/min/1.73 sqM); Sodium 135 mmol/L (137-145); Total Bilirubin 0.6 mg/dL (0.2-1.3); Total Protein 6.4 g/dL (6.3-8.2)
[2024-10-24 11:34] LABS: AST 17 U/L (17-59); Potassium 3.9 mmol/L (3.5-5.1)
[2024-10-24 11:35] LABS: Alkaline Phosphatase 81 U/L (38-126)
[2024-10-24 11:40] LABS: Basophils # (A) 0.07 10*3/uL (0.00-0.10); Basophils % (A) 0.9 %; Eosinophils # (A) 0.09 10*3/uL (0.04-0.35); Eosinophils % (A) 1.2 %; HCT 27.8 % (39.6-50.0); HGB 9.1 g/dL (13.0-17.0); Immature Platelet Fraction 1.2 % (1.1-6.1); Lymphocytes # (A) 0.79 10*3/uL (0.90-5.00); Lymphocytes % (A) 10.7 %; MCH 30.3 pg (27.0-32.0); MCHC 32.7 g/dL (32.0-37.0); MCV 92.7 fL (80.0-97.0); Mean Platelet Volume 8.9 fL (9.5-12.2); Monocytes # (A) 0.52 10*3/uL (0.20-1.00); Neutrophils # (A) 5.87 10*3/uL (1.80-7.70); Neutrophils % (A) 79.3 %; Platelet Count 505 10*3/uL (140-440); RDW 19.5 % (11.5-14.5); WBC 7.41 10*3/uL (4.50-10.00)
[2024-10-24] MEDS ORDERED: NALOXONE 0.4 MG/ML 1 ML VIAL IV PRN (12:30)
--- NOTE | 2024-10-24 12:30 | ED ---
General Adult HPI - General Chief complaint: Recheck/Abnormal Lab/Rx Stated complaint: post op issue Time Seen by Provider: 10/24/24 10:05 Source: patient Mode of arrival: ambulatory Limitations: no limitations - History of Present Illness Initial comments: 74-year-old male presents to the emergency department under the direction of Dr. Mendoza. Patient has a history of osteomyelitis of his left foot. He does have history of diabetes mellitus. Patient is status post transmetatarsal amputation of his left foot. He had a follow-up appointment with Dr. Mendoza in office. Dr. Mendoza is not satisfied with the progression of the patient's healing. He recommended that the patient come back to the hospital for debridement tomorrow. Patient was agreeable to this. He does admit to significant pain in the left foot. Patient was unaware that the healing process was not going as planned. He denies any fevers. No other alleviating, precipitating or modifying factors - Related Data Home Medications Medication Instructions Recorded Confirmed metFORMIN HCL [Glucophage] 1,000 mg PO BID 12/23/16 10/24/24 Aspirin [Adult Low Dose Aspirin EC] 81 mg PO DAILY 11/01/17 10/24/24 Cholecalciferol [Vitamin D3 (25 50 mcg PO DAILY 06/17/21 10/24/24 Mcg = 1000 Iu)] Rosuvastatin Calcium [Crestor] 40 mg PO DAILY 06/17/21 10/24/24 Empagliflozin [Jardiance] 25 mg PO DAILY 10/03/24 10/24/24 Podofilox 1 applic TOPICAL DAILY 10/03/24 10/24/24 SITagliptin [Sitagliptin] 100 mg PO DAILY 10/03/24 10/24/24 glipiZIDE [Glucotrol] 10 mg PO AC-BID 10/03/24 10/24/24 Multivitamins, Thera [Multivitamin 1 tab PO DAILY 10/17/24 10/24/24 (formulary)] Previous Rx's Medication Instructions Recorded Gabapentin [Neurontin] 300 mg PO TID 30 Days #90 cap 10/08/24 cilostazoL [Pletal] 100 mg PO BID #60 tab 10/08/24 Ascorbic Acid [Vitamin C] 1,000 mg PO DAILY #30 tablet 10/15/24 Ferrous Sulfate [Iron (65 MG 325 mg PO DAILY #30 tab 10/15/24 Elemental)] Folic Acid 1 mg PO DAILY #30 tab 10/15/24 Tamsulosin HCl [Flomax] 0.8 mg PO HS #30 cap 10/15/24 Cefepime [Maxipime] 2 gm IVPB Q8HR each 11/05/24 Clopidogrel [Plavix] 75 mg PO DAILY #90 tab 11/05/24 Gabapentin [Gralise] 450 mg PO TID #90 tab 11/05/24 oxyCODONE-APAP 7.5-325MG [Percocet 1 each PO Q4HR PRN 3 Days #18 tab 11/05/24 7.5-325 mg] Allergies Allergy/AdvReac Type Severity Reaction Status Date / Time sulfamethoxazole Allergy Severe joint Verified 10/25/24 12:01 [From Bactrim] pain, aches ciprofloxacin [From Cipro] Allergy joint Verified 10/25/24 12:01 pain, aches lisinopril Allergy joint Verified 10/25/24 12:01 pain, cough trimethoprim [From Bactrim] Allergy joint Verified 10/25/24 12:01 pain, aches NABIL Inhibitors AdvReac Cough Verified 10/25/24 12:01 Review of Systems ROS Statement: Those systems with pertinent positive or pertinent negative responses have been documented in the HPI. ROS Other: All systems not noted in ROS Statement are negative. Past Medical History Past Medical History: Diabetes Mellitus, Deep Vein Thrombosis (DVT), Eye Disorder, GERD/Reflux, Hyperlipidemia, Hypertension, Prostate Disorder Additional Past Medical History / Comment(s): L foot osteomylitis, DJD, DVT R leg, R eye macular degeneration, BPH, benign colon polyps. History of Any Multi-Drug Resistant Organisms: MRSA Date of last positivie culture/infection: 06/19/21 MDRO Source:: MRSA TOE Past Surgical History: Orthopedic Surgery, Tonsillectomy Additional Past Surgical History / Comment(s): L great toe amputation, L 2nd toe "bones disconnected", colonoscopy with polypectomy, bilateral cataract removals, 3rd/4th/5th digit on left foor removed Past Anesthesia/Blood Transfusion Reactions: No Reported Reaction Past Psychological History: No Psychological Hx Reported Smoking Status: Current every day smoker Past Alcohol Use History: None Reported Past Drug Use History: None Reported - Past Family History Father History Unknown: Yes Family Medical History: No Reported History Mother Family Medical History: No Reported History Additional Family Medical History / Comment(s): Mother was healthy General Exam Limitations: no limitations General appearance: alert, in no apparent distress Head exam: Present: atraumatic, normocephalic, normal inspection Eye exam: Present: normal appearance, PERRL, EOMI. Absent: scleral icterus, conjunctival injection, periorbital swelling ENT exam: Present: normal exam, mucous membranes moist Neck exam: Present: normal inspection. Absent: tenderness, meningismus, lympha denopathy Respiratory exam: Present: normal lung sounds bilaterally. Absent: respiratory distress, wheezes, rales, rhonchi, stridor Cardiovascular Exam: Present: regular rate, normal rhythm, normal heart sounds. Absent: systolic murmur, diastolic murmur, rubs, gallop, clicks GI/Abdominal exam: Present: soft, normal bowel sounds. Absent: distended, tenderness, guarding, rebound, rigid Extremities exam: Present: other (Patient has dehiscence of his transmetatarsal amputation site on the left). Absent: tenderness, pedal edema, joint swelling, calf tenderness Back exam: Present: normal inspection Neurological exam: Present: alert, oriented X3, CN II-XII intact Psychiatric exam: Present: normal affect, normal mood Skin exam: Present: warm, dry, intact, normal color. Absent: rash Course Vital Signs 10/24/24 10/24/24 10/24/24 10:01 12:50 13:32 Temperature 97.4 F L 97.8 F Pulse Rate 101 H 87 88 Respiratory 18 20 20 Rate Blood Pressure 129/64 114/65 115/72 O2 Sat by Pulse 99 97 96 Oximetry Medical Decision Making - Medical Decision Making Was pt. sent in by a medical professional or institution (, PA, AIRCRAFT DISPATCHER, urgent care, hospital, or custodial...) When possible be specific @ -Patient is sent in by Dr. Mendoza Did you speak to anyone other than the patient for history (EMS, parent, family, police, friend...)? What history was obtained from this source @ -I spoke with Dr. Mendoza for the history as the patient is a poor historian Did you review nursing and triage notes (agree or disagree)? Why? @ -I reviewed and agree with nursing and triage notes Were old charts reviewed (outside hosp., previous admission, EMS record, old EKG, old radiological studies, urgent care reports/EKG's, custodial records)? Report findings @ -I reviewed the surgical consultation from October 24 Differential Diagnosis (chest pain, altered mental status, abdominal pain women, abdominal pain men, vaginal bleeding, weakness, fever, dyspnea, syncope, headache, dizziness, GI bleed, back pain, seizure, CVA, palpatations, mental health, musculoskeletal)? @ -Wound dehiscence, medical noncompliance, trauma EKG interpreted by me (3pts min.). @ -Not done X-rays interpreted by me (1pt min.). @ -None done CT interpreted by me (1pt min.). @ -None done U/S interpreted by me (1pt. min.). @ -None done What testing was considered but not performed or refused? (CT, X-rays, U/S, labs)? Why? @ -None What meds were considered but not given or refused? Why? @ -None Did you discuss the management of the patient with other professionals (professionals i.e. , PA, AIRCRAFT DISPATCHER, lab, RT, psych nurse, social media executive, machinist mechanic, teacher, community liaison officer, lining caser)? Give summary @ -Spoke with Dr. Martinez for the admission Was smoking cessation discussed for >3mins.? @ -No Was critical care preformed (if so, how long)? @ -No Were there social determinants of health that impacted care today? How? (Homelessness, low income, unemployed, alcoholism, drug addiction, transpo rtation, low edu. Level, literacy, decrease access to med. care, residential, rehab)? @ -No Was there de-escalation of care discussed even if they declined (Discuss DNR or withdrawal of care, Hospice)? DNR status @ -No What co-morbidities impacted this encounter? (DM, HTN, Smoking, COPD, CAD, Cancer, CVA, ARF, Chemo, Hep., AIDS, mental health diagnosis, sleep apnea, morbid obesity)? @ -Peripheral vascular disease, diabetes, hypertension Was patient admitted / discharged? Hospital course, mention meds given and route, prescriptions, significant lab abnormalities, going to OR and other pertinent info. @ -Upon arrival patient seen and evaluated in bed 20. Thorough history and physical exam was performed. IV access was established. Laboratory studies were conducted. Dr. Mendoza sent the patient over for admission. Patient will be [facility] to [facility]. Spoke with Dr. Martinez. Dr. Mendoza will be placed on consult Undiagnosed new problem with uncertain prognosis? @ -No Drug Therapy requiring intensive monitoring for toxicity (Heparin, Nitro, Insulin, Cardizem)? @ -No Were any procedures done? @ -No Diagnosis/symptom? @ -Acute wound dehiscence of transmetatarsal amputation, history of diabetes mellitus, history of peripheral vascular disease Acute, or Chronic, or Acute on Chronic? @ -Acute on chronic Uncomplicated (without systemic symptoms) or Complicated (systemic symptoms)? @ -Complicated Side effects of treatment? @ -No Exacerbation, Progression, or Severe Exacerbation? @ -No Poses a threat to life or bodily function? How? (Chest pain, [place], [place], pneumonia, PE, COPD, DKA, ARF, appy, cholecystitis, CVA, Diverticulitis, Homicidal, Suicidal, threat to staff... and all critical care pts) @ -No - Lab Data Result diagrams: 11/04/24 06:31 11/04/24 06:31 Lab Results 10/24/24 10/24/24 10/24/24 Range/Units 10:50 10:50 10:50 WBC 7.41 (4.50-10.00) 10*3/uL RBC 3.00 L (4.40-5.60) 10*6/uL Hgb 9.1 L (13.0-17.0) g/dL Hct 27.8 L (39.6-50.0) % MCV 92.7 (80.0-97.0) fL MCH 30.3 (27.0-32.0) pg MCHC 32.7 (32.0-37.0) g/dL Plt Count 505 H (140-440) 10*3/uL MPV 8.9 L (9.5-12.2) fL Immature Gran % (Auto) 0.9 % Neutrophils % 79.3 % Lymphocytes % 10.7 % Monocytes % 7.0 % Eosinophils % 1.2 % Basophils % 0.9 % Immature Gran # 0.07 H (0.00-0.04) 10*3/uL Neutrophils # 5.87 (1.80-7.70) 10*3/uL Lymphocytes # 0.79 L (0.90-5.00) 10*3/uL Monocytes # 0.52 (0.20-1.00) 10*3/uL Eosinophils # 0.09 (0.04-0.35) 10*3/uL Basophils # 0.07 (0.00-0.10) 10*3/uL Immature Plt Fraction 1.2 (1.1-6.1) % Sodium 135 L (137-145) mmol/L Potassium 3.9 (3.5-5.1) mmol/L Chloride 101 (98-107) mmol/L Carbon Dioxide 27 (22-30) mmol/L Anion Gap 7 mmol/L BUN 12 (9-20) mg/dL Creatinine 0.69 (0.66-1.25) mg/dL Est GFR (CKD-EPI)AfAm >90 (>60 ml/min/1.73 sqM) Est GFR (CKD-EPI)NonAf >90 (>60 ml/min/1.73 sqM) Glucose 257 H (74-99) mg/dL Plasma Lactic Acid Espinoza 1.1 (0.7-2.0) mmol/L Calcium 8.6 (8.4-10.2) mg/dL Total Bilirubin 0.6 (0.2-1.3) mg/dL AST 17 (17-59) U/L ALT 6 (4-49) U/L Alkaline Phosphatase 81 (38-126) U/L Total Protein 6.4 (6.3-8.2) g/dL Albumin 3.2 L (3.5-5.0) g/dL Disposition Clinical Impression: Diabetic foot infection Disposition: ADMITTED IP TO THIS [facility] Condition: Stable Is patient prescribed a controlled substance at d/c from ED?: No Time of Disposition: 12:30 Decision to Admit Reason: Admit from EC Decision Date: 10/24/24 Decision Time: 12:30
[2024-10-24] MEDS: MORPHINE SULFATE 4 MG/ML SYRINGE IV PRN (12:55)
--- NOTE | 2024-10-24 13:19 | P.GSCN ---
History of Present Illness Consult date: 10/24/24 Reason for Consult: TMA wound Requesting physician: Parvin Fernandez History of present illness: This a pleasant 74-year-old male with peripheral arterial disease and recent left foot infection status post transmetatarsal amputation and left lower extremity angiogram with atherectomy of left SFA with balloon dilation. He underwent left TMA with Dr. Alicea on 10/04/2024. On 10/11/2024 he underwent angiogram with revascularization. Patient was seen today and vascular surgical office for outpatient follow-up and apparently had some wound dehiscence and concerns for nonviable tissue. Recommendation was to be admitted to the hospital and scheduled for excisional debridement in the operating room with wound VAC application. Patient states he has continued pain in his left calf both at rest and with ambulation. This has been ongoing for months, no new change. He denies any fevers or chills. He is afebrile. Review of Systems A 14 point review systems was completed all pertinent positives and negatives as stated in the HPI. Past Medical History Past Medical History: Diabetes Mellitus, Deep Vein Thrombosis (DVT), Eye Disorder, GERD/Reflux, Hyperlipidemia, Hypertension, Prostate Disorder Additional Past Medical History / Comment(s): L foot osteomylitis, DJD, DVT R leg, R eye macular degeneration, BPH, benign colon polyps. History of Any Multi-Drug Resistant Organisms: MRSA Year Discovered:: 06/19/21 MDRO Source:: MRSA TOE Past Surgical History: Orthopedic Surgery, Tonsillectomy Additional Past Surgical History / Comment(s): L great toe amputation, L 2nd toe "bones disconnected", colonoscopy with polypectomy, bilateral cataract removals, 3rd/4th/5th digit on left foor removed Past Anesthesia/Blood Transfusion Reactions: No Reported Reaction Past Psychological History: No Psychological Hx Reported Smoking Status: Current every day smoker Past Alcohol Use History: None Reported Past Drug Use History: None Reported - Past Family History Father History Unknown: Yes Family Medical History: No Reported History Mother Family Medical History: No Reported History Additional Family Medical History / Comment(s): Mother was healthy Medications and Allergies Home Medications Medication Instructions Recorded Confirmed Type metFORMIN HCL [Glucophage] 1,000 mg PO BID 12/23/16 10/24/24 History Aspirin [Adult Low Dose Aspirin EC] 81 mg PO DAILY 11/01/17 10/24/24 History Cholecalciferol [Vitamin D3 (25 50 mcg PO DAILY 06/17/21 10/24/24 History Mcg = 1000 Iu)] Losartan [Cozaar] 50 mg PO DAILY 06/17/21 10/24/24 History Rosuvastatin Calcium [Crestor] 40 mg PO DAILY 06/17/21 10/24/24 History Empagliflozin [Jardiance] 25 mg PO DAILY 10/03/24 10/24/24 History Podofilox 1 applic TOPICAL DAILY 10/03/24 10/24/24 History SITagliptin [Sitagliptin] 100 mg PO DAILY 10/03/24 10/24/24 History glipiZIDE [Glucotrol] 10 mg PO AC-BID 10/03/24 10/24/24 History Gabapentin [Neurontin] 300 mg PO TID 30 Days #90 cap 10/08/24 10/24/24 Rx cilostazoL [Pletal] 100 mg PO BID #60 tab 10/08/24 10/24/24 Rx Ascorbic Acid [Vitamin C] 1,000 mg PO DAILY #30 tablet 10/15/24 10/24/24 Rx Ferrous Sulfate [Iron (65 MG 325 mg PO DAILY #30 tab 10/15/24 10/24/24 Rx Elemental)] Folic Acid 1 mg PO DAILY #30 tab 10/15/24 10/24/24 Rx Tamsulosin HCl [Flomax] 0.8 mg PO HS #30 cap 10/15/24 10/24/24 Rx ceFAZolin [Kefzol] 2 gm IVP Q8HR #30 each 10/15/24 10/24/24 Rx metroNIDAZOLE [Flagyl] 500 mg PO Q8HR 10 Days #30 tab 10/15/24 10/24/24 Rx HYDROcodone/APAP 7.5-325MG [[place] 1 tab PO Q6HR PRN 10/17/24 10/24/24 History 7.5-325] Multivitamins, Thera [Multivitamin 1 tab PO DAILY 10/17/24 10/24/24 History (formulary)] Allergies Allergy/AdvReac Type Severity Reaction Status Date / Time sulfamethoxazole Allergy Severe joint Verified 10/24/24 10:06 [From Bactrim] pain, aches ciprofloxacin [From Cipro] Allergy joint Verified 10/24/24 10:06 pain, aches lisinopril Allergy joint Verified 10/24/24 10:06 pain, cough trimethoprim [From Bactrim] Allergy joint Verified 10/24/24 10:06 pain, aches NABIL Inhibitors AdvReac Cough Verified 10/24/24 10:06 Surgical - Exam Vital Signs Temp Pulse Resp BP Pulse Ox 97.4 F L 101 H 18 129/64 99 10/24/24 10:01 10/24/24 10:01 10/24/24 10:01 10/24/24 10:01 10/24/24 10:01 General appearance: The patient is alert, oriented, appears in no acute distress. HET: Head is normocephalic and atraumatic. Pupils are equal and reactive. Neck: Supple. Heart: Regular. Lungs: Equal expansion, normal respiratory effort. Abdomen: Soft, nontender, nondistended. Extremities: Left foot TMA, dressing clean dry and intact. Plantar aspect of foot with wound. Neurological: No focal deficits. Strength and sensation are grossly intact. Results - Labs 10/24/24 10:50 10/24/24 10:50 Abnormal Lab Results - Last 24 Hours (Table) 10/24/24 10/24/24 Range/Units 10:50 10:50 RBC 3.00 L (4.40-5.60) 10*6/uL Hgb 9.1 L (13.0-17.0) g/dL Hct 27.8 L (39.6-50.0) % Plt Count 505 H (140-440) 10*3/uL MPV 8.9 L (9.5-12.2) fL Immature Gran # 0.07 H (0.00-0.04) 10*3/uL Lymphocytes # 0.79 L (0.90-5.00) 10*3/uL Sodium 135 L (137-145) mmol/L Glucose 257 H (74-99) mg/dL Albumin 3.2 L (3.5-5.0) g/dL Diabetes panel 10/24/24 Range/Units 10:50 Sodium 135 L (137-145) mmol/L Potassium 3.9 (3.5-5.1) mmol/L Chloride 101 (98-107) mmol/L Carbon Dioxide 27 (22-30) mmol/L BUN 12 (9-20) mg/dL Creatinine 0.69 (0.66-1.25) mg/dL Glucose 257 H (74-99) mg/dL Calcium 8.6 (8.4-10.2) mg/dL AST 17 (17-59) U/L ALT 6 (4-49) U/L Alkaline Phosphatase 81 (38-126) U/L Total Protein 6.4 (6.3-8.2) g/dL Albumin 3.2 L (3.5-5.0) g/dL Calcium panel 10/24/24 Range/Units 10:50 Calcium 8.6 (8.4-10.2) mg/dL Albumin 3.2 L (3.5-5.0) g/dL Pituitary panel 10/24/24 Range/Units 10:50 Sodium 135 L (137-145) mmol/L Potassium 3.9 (3.5-5.1) mmol/L Chloride 101 (98-107) mmol/L Carbon Dioxide 27 (22-30) mmol/L BUN 12 (9-20) mg/dL Creatinine 0.69 (0.66-1.25) mg/dL Glucose 257 H (74-99) mg/dL Calcium 8.6 (8.4-10.2) mg/dL Adrenal panel 10/24/24 Range/Units 10:50 Sodium 135 L (137-145) mmol/L Potassium 3.9 (3.5-5.1) mmol/L Chloride 101 (98-107) mmol/L Carbon Dioxide 27 (22-30) mmol/L BUN 12 (9-20) mg/dL Creatinine 0.69 (0.66-1.25) mg/dL Glucose 257 H (74-99) mg/dL Calcium 8.6 (8.4-10.2) mg/dL Total Bilirubin 0.6 (0.2-1.3) mg/dL AST 17 (17-59) U/L ALT 6 (4-49) U/L Alkaline Phosphatase 81 (38-126) U/L Total Protein 6.4 (6.3-8.2) g/dL Albumin 3.2 L (3.5-5.0) g/dL Assessment and Plan Assessment: 1. Left TMA wound 2. Peripheral arterial disease 3. Diabetes mellitus 4. Chronic tobacco use 5. History of previous gangrenous toes status post amputation 6. History of left lower extremity deep vein thrombosis Plan: 1. Plan for excisional debridement of left TMA With Wound VAC application tomorrow 2. Pain medication as needed 3. Patient may have consistent carbohydrate diet 4. N.p.o. after midnight 5. Recommend smoking cessation 6. Rest of medical management per primary medical team Thank you for this consultation, we will continue to follow. The impression and plan of care has been dictated as directed. I performed a history and examination of this patient, discussed the same with the dictator. I agree with the dictator's note ,documented as a scribe. Any additional findings or plans will be noted.
--- NOTE | 2024-10-24 14:48 | P.HPIM ---
History of Present Illness H&P Date: 10/24/24 74-year-old male with PMH of [id number] diabetes mellitus, hypertension, hyperlipidemia, previous DVT not anticoagulated and BPH, PAD, left foot osteomyelitis status post transmetatarsal amputation of left foot presenting to the ED with wound dehiscence. He had a follow-up appointment with Dr. Mendoza s/p left TMA. Dr. Mendoza was not satisfied with the progression of healing and recommend to come at the hospital for debridement. Patient admits to significant left foot pain when he first came in, but states pain has been controlled after receiving medication. Patient denies any confirmed fevers, chills, chest pain, shortness of breath nausea, vomiting, abdominal pain, urinary symptoms. Social history: -Smoking: Current everyday smoker. [id number] history. -Alcohol: Denies -Recreational drug use: Denies Labs on admission: WBC 7.41, Hgb 9.1, MCV 92.7, platelet 5.5, sodium 135, glucose 257 Vital signs on admission: T 97.4 F, TX 101, RR 18, BP 129/64, O2 saturation 99% on room air ED documentation reviewed. Review of systems: Pertinent positives and negatives as discussed in HPI, a complete review of systems was performed and all other systems are negative. Physical examination: Vital signs reviewed General: non toxic, no distress, appears at stated age, normal weight Derm: no unusual rashes/lesions, warm Head: atraumatic, normocephalic, symmetric Eyes: EOMI, anicteric sclera, pupils equal round reactive to light ENT: Nose and ears atraumatic Mouth: no lip lesion, mucus membranes moist Cardiovascular: S1S2 reg, no murmur, positive dorsalis pedis pulse bilateral, no edema Lungs: CTA bilaterally, no rhonchi, no rales, no accessory muscle use Abdominal: soft, nontender to palpation, no guarding Ext: Left foot TMA, dressing clean and intact, wound on plantar aspect of left foot Neuro: CN II-XI grossly intact, no gross focal neuro deficits Psych: Alert, oriented to person, place, and time Assessment/Plan: 74-year-old male with PMH of [id number] diabetes mellitus, hypertension, hyperlipidemia, previous DVT not anticoagulated and BPH, left foot osteomyelitis status post transmetatarsal amputation of left foot presenting to the ED with wound dehiscence. #. Left transmetatarsal wound dehiscence status post transmetatarsal amputation #. Peripheral artery disease Plan for surgical debridement Medications have been optimized for surgery Placed on Zosyn one-time by ED, will place patient on cefazolin 2 g IVPB q8 hours and Flagyl IVPB q 8 hours Continue aspirin 81 mg PO QD and cilostazol 500 mg PO BID Morphine sulfate 4 mg IV every 4 hours as needed and [place] 5325 PO q6 hours as needed for pain control Surgery note reviewed, plan for excisional debridement of left TMA with wound VAC application tomorrow #. Eso-laqqfud-mapspjezg type 2 diabetes mellitus Insulin SQ sliding scale Accu-Cheks ACHS Monitor for hypoglycemia Consistent carbohydrate diet => NPO after midnight Hold metformin, glipizide, sitagliptin, Jardiance #. History of DVT not currently on anticoagulation Bilateral duplex venous ultrasound showing no evidence of DVT on last visit #. Anemia of chronic disease #. Thrombocytosis Platelet 505, likely due to chronic tobacco use No signs of acute bleeding, continue to monitor CBC Continue ferrous sulfate 325 mg daily Chronic: #Hypertension: Hold losartan 50 mg daily #Hyperlipidemia: Continue with Crestor 40 mg PO QD #BPH: Continue with Flomax 0.4 mg PO QD #Chronic tobacco use: recommended smoking cessation #Neuropathy: Continue with gabapentin 300 mg PO TID DVT prophylaxis: Heparin 5000 unit SQ every 8 hours The patient is admitted with an anticipated greater than 2 midnight stay for evaluation of left foot wound dehiscence status post transmetatarsal amputation. CODE STATUS: Full code Discussed with: Patient Anticipated discharge place: Pending clinical course Nando Cabello MD PGY-1 IM Dictation was produced using [employer] dictation software. please excuse any grammatical, word or spelling errors. I have seen and evaluated the patient today. Discussed with the resident and agree with the residents finding and plan as documented in the resident's note. Changes highlighted in blue font. Past Medical History Past Medical History: Diabetes Mellitus, Deep Vein Thrombosis (DVT), Eye D isorder, GERD/Reflux, Hyperlipidemia, Hypertension, Prostate Disorder Additional Past Medical History / Comment(s): L foot osteomylitis, DJD, DVT R leg, R eye macular degeneration, BPH, benign colon polyps. History of Any Multi-Drug Resistant Organisms: MRSA Date of last positivie culture/infection: 06/19/21 MDRO Source:: MRSA TOE Past Surgical History: Orthopedic Surgery, Tonsillectomy Additional Past Surgical History / Comment(s): L great toe amputation, L 2nd toe "bones disconnected", colonoscopy with polypectomy, bilateral cataract removals, 3rd/4th/5th digit on left foor removed Past Anesthesia/Blood Transfusion Reactions: No Reported Reaction Past Psychological History: No Psychological Hx Reported Smoking Status: Current every day smoker Past Alcohol Use History: None Reported Past Drug Use History: None Reported - Past Family History Father History Unknown: Yes Family Medical History: No Reported History Mother Family Medical History: No Reported History Additional Family Medical History / Comment(s): Mother was healthy Medications and Allergies Home Medications Medication Instructions Recorded Confirmed Type metFORMIN HCL [Glucophage] 1,000 mg PO BID 12/23/16 10/24/24 History Aspirin [Adult Low Dose Aspirin EC] 81 mg PO DAILY 11/01/17 10/24/24 History Cholecalciferol [Vitamin D3 (25 50 mcg PO DAILY 06/17/21 10/24/24 History Mcg = 1000 Iu)] Losartan [Cozaar] 50 mg PO DAILY 06/17/21 10/24/24 History Rosuvastatin Calcium [Crestor] 40 mg PO DAILY 06/17/21 10/24/24 History Empagliflozin [Jardiance] 25 mg PO DAILY 10/03/24 10/24/24 History Podofilox 1 applic TOPICAL DAILY 10/03/24 10/24/24 History SITagliptin [Sitagliptin] 100 mg PO DAILY 10/03/24 10/24/24 History glipiZIDE [Glucotrol] 10 mg PO AC-BID 10/03/24 10/24/24 History Gabapentin [Neurontin] 300 mg PO TID 30 Days #90 cap 10/08/24 10/24/24 Rx cilostazoL [Pletal] 100 mg PO BID #60 tab 10/08/24 10/24/24 Rx Ascorbic Acid [Vitamin C] 1,000 mg PO DAILY #30 tablet 10/15/24 10/24/24 Rx Ferrous Sulfate [Iron (65 MG 325 mg PO DAILY #30 tab 10/15/24 10/24/24 Rx Elemental)] Folic Acid 1 mg PO DAILY #30 tab 10/15/24 10/24/24 Rx Tamsulosin HCl [Flomax] 0.8 mg PO HS #30 cap 10/15/24 10/24/24 Rx ceFAZolin [Kefzol] 2 gm IVP Q8HR #30 each 10/15/24 10/24/24 Rx metroNIDAZOLE [Flagyl] 500 mg PO Q8HR 10 Days #30 tab 10/15/24 10/24/24 Rx Multivitamins, Thera [Multivitamin 1 tab PO DAILY 10/17/24 10/24/24 History (formulary)] Allergies Allergy/AdvReac Type Severity Reaction Status Date / Time sulfamethoxazole Allergy Severe joint Verified 10/24/24 10:06 [From Bactrim] pain, aches ciprofloxacin [From Cipro] Allergy joint Verified 10/24/24 10:06 pain, aches lisinopril Allergy joint Verified 10/24/24 10:06 pain, cough trimethoprim [From Bactrim] Allergy joint Verified 10/24/24 10:06 pain, aches NABIL Inhibitors AdvReac Cough Verified 10/24/24 10:06 Physical Exam Vitals: Vital Signs Temp Pulse Resp BP Pulse Ox 10/24/24 13:32 97.8 F 88 20 115/72 96 10/24/24 12:50 87 20 114/65 97 10/24/24 10:01 97.4 F L 101 H 18 129/64 99 Intake and Output 10/23/24 10/24/24 10/24/24 22:59 06:59 14:59 Other: Weight 84.822 kg Results CBC & Chem 7: 10/24/24 10:50 10/24/24 10:50 Labs: Abnormal Lab Results - Last 24 Hours (Table) 10/24/24 10/24/24 Range/Units 10:50 10:50 RBC 3.00 L (4.40-5.60) 10*6/uL Hgb 9.1 L (13.0-17.0) g/dL Hct 27.8 L (39.6-50.0) % Plt Count 505 H (140-440) 10*3/uL MPV 8.9 L (9.5-12.2) fL Immature Gran # 0.07 H (0.00-0.04) 10*3/uL Lymphocytes # 0.79 L (0.90-5.00) 10*3/uL Sodium 135 L (137-145) mmol/L Glucose 257 H (74-99) mg/dL Albumin 3.2 L (3.5-5.0) g/dL
[2024-10-24] MEDS: GABAPENTIN 300 MG CAP PO SCH (15:23)
[2024-10-24] MEDS: metroNIDAZOLE-NS PMX 500 MG in SALINE 1 100ML.BAG IVPB SCH (15:30)
[2024-10-24 17:09] LABS: Glucose,Whole Blood 271 mg/dL (70-110)
[2024-10-24] MEDS: INSULIN LISPRO (HumaLOG) 100 UNIT/ML 10 mL VL SQ SCH (17:28)
[2024-10-24] MEDS: ceFAZolin 2 GM in DEXTROSE 50%-WATER VIAL 50 ML IVPB SCH (17:41)
[2024-10-24] MEDS: HYDROcodone/APAP 5-325MG 1 EACH TAB PO PRN (19:24)
[2024-10-24 20:08] LABS: Glucose,Whole Blood 198 mg/dL (70-110)
[2024-10-24] MEDS: cilostazoL 100 MG TAB PO SCH (21:22)
[2024-10-24] MEDS: TAMSULOSIN 0.4 MG CAP.ER.24H PO SCH (21:22)
[2024-10-25] MEDS ORDERED: HEPARIN SODIUM,PORCINE 5,000 UNIT/ML 1 ML VIAL SQ SCH
[2024-10-25 06:05] LABS: Glucose,Whole Blood 162 mg/dL (70-110)
[2024-10-25 07:59] LABS: Basophils # (A) 0.04 X 10*3/uL (0.00-0.10); Basophils % (A) 0.6 %; Eosinophils # (A) 0.11 X 10*3/uL (0.04-0.35); Eosinophils % (A) 1.6 %; HCT 24.7 % (39.6-50.0); HGB 7.9 g/dL (13.0-17.0); Lymphocytes # (A) 1.12 X 10*3/uL (0.90-5.00); Lymphocytes % (A) 16.1 %; MCH 30.5 pg (27.0-32.0); MCV 95.4 FL (80.0-97.0); Monocytes # (A) 0.68 X 10*3/uL (0.20-1.00); Monocytes % (A) 9.8 %; NRBC Per 100 WBC 0 X 10*3/uL (0.00-0.01); Neutrophils # (A) 4.96 X 10*3/uL (1.80-7.70); Platelet Count 390 X 10*3/uL (140-440); RBC 2.59 X 10*6/uL (4.40-5.60); RDW 19.3 % (11.5-14.5); WBC 6.97 X 10*3/uL (4.50-10.00)
[2024-10-25 08:27] LABS: BUN/Creat Ratio 14.14 Ratio (12.00-20.00); Blood Urea Nitrogen 9.9 mg/dL (9.0-27.0); Calcium 7.9 mg/dL (8.7-10.3); Carbon Dioxide 23.6 mmol/L (21.6-31.8); Chloride 104 mmol/L (96-109); Glucose 144 mg/dL (70-110); Magnesium 1.7 mg/dL (1.5-2.4); Potassium 4.2 mmol/L (3.5-5.5); Sodium 137 mmol/L (135-145)
[2024-10-25] MEDS: ASPIRIN 81 MG PO SCH (08:32)
[2024-10-25] MEDS: ATORVASTATIN 80 MG TAB PO SCH (08:32)
--- NOTE | 2024-10-25 11:30 | P.PN ---
Subjective Progress Note Date: 10/25/24 Hospital Course: 74-year-old male with PMH of [id number]-[id number] diabetes mellitus, hypertension, hyperlipidemia, previous DVT not anticoagulated and BPH, PAD, left foot osteomyelitis status post transmetatarsal amputation of left foot presenting to the ED with wound dehiscence. He had a follow-up appointment with Dr. Mendoza s/p left TMA. Dr. Mendoza was not satisfied with the progression of healing and recommend to come at the hospital for debridement. Patient admits to significant left foot pain when he first came in, but states pain has been controlled after receiving medication. Patient denies any confirmed fevers, chills, chest pain, shortness of breath nausea, vomiting, abdominal pain, urinary symptoms. Social history: -Smoking: Current everyday smoker. [id number] history. -Alcohol: Denies -Recreational drug use: Denies Labs on admission: WBC 7.41, Hgb 9.1, MCV 92.7, platelet 5.5, sodium 135, glucose 257 Vital signs on admission: T 97.4 F, NM 101, RR 18, BP 129/64, O2 saturation 99% on room air ED documentation reviewed. Patient be admitted for debridement, along with vascular surgery, for his left TMA wound dehiscence. Subjective: Patient seen and examined at bedside. No acute events overnight. Patient meyer ving complaint of claudication. Patient states that he did intervention when he was here last time but only had temporary relief of his pain. He is wondering if another intervention for his PAD is necessary. Pertinent positives and negatives as discussed above, a complete review of systems was performed and all other systems are negative. Vitals: Signs Reviewed Physical Exam: General: nontoxic, no distress, appears at stated age Derm: warm, dry, intact Head: atraumatic, normocephalic, symmetric Eyes: EOMI, anicteric sclera Mouth: no lip lesion, mucus membranes moist Cardiovascular: S1 S2 reg, no murmur, rubs, or gallops Lungs: CTA bilateral, no rhonchi, no rales, no accessory muscle use Abdominal: soft, non-tender to palpataion, no appreciable organomegaly Extremities: no gross muscle atrophy, no edema, no contractures Neuro: Alert, Oriented, CNII-XII grossly intact, gait normal Psych: well appearing, appropriate affect Data Received Today: 74-year-old male with PMH of [id number] diabetes mellitus, hypertension, hyperlipidemia, previous DVT not anticoagulated and BPH, left foot osteomyelitis status post transmetatarsal amputation of left foot presenting to the ED with wound dehiscence. #. Left transmetatarsal wound dehiscence status post transmetatarsal amputation #. Peripheral artery disease Plan for surgical debridement this afternoon Medications have been optimized for surgery Placed on Zosyn one-time by ED, will place patient on cefazolin 2 g IVPB q8 hours and Flagyl IVPB q 8 hours Continue aspirin 81 mg PO QD and cilostazol 500 mg PO BID Morphine sulfate 4 mg IV every 4 hours as needed and [place] 5325 PO q6 hours as needed for pain control Discussed with vascular surgery about patient's claudication and further interv ention was needed for PAD. Dr. Fairbanks is aware and will likely follow-up outpatient regarding this. #. Ynj-twhtggy-snjmiyxyx type 2 diabetes mellitus Insulin SQ sliding scale Accu-Cheks ACHS Monitor for hypoglycemia Consistent carbohydrate diet => NPO after midnight Hold metformin, glipizide, sitagliptin, Jardiance #. History of DVT not currently on anticoagulation Bilateral duplex venous ultrasound showing no evidence of DVT on last visit #. Anemia of chronic disease #. Thrombocytosis Platelet 505, likely due to chronic tobacco use No signs of acute bleeding, continue to monitor CBC Continue ferrous sulfate 325 mg daily Chronic: #Hypertension: Hold losartan 50 mg daily #Hyperlipidemia: Continue with Crestor 40 mg PO QD #BPH: Continue with Flomax 0.4 mg PO QD #Chronic tobacco use: recommended smoking cessation #Neuropathy: Continue with gabapentin 300 mg PO TID DVT prophylaxis: Subcu heparin Code status: Full code Anticipated discharge place: Pending clinical course Anticipated discharge time: Pending clinical course Nando Cabello MD PGY-1 IM Dictation was produced using [employer] dictation software. please excuse any grammatical, word or spelling errors. I have seen and evaluated the patient today. Discussed with the resident and agree with the residents finding and plan as documented in the resident's note. Changes highlighted in blue font. Objective - Vital Signs Vital signs: Vital Signs Temp 98.5 F 10/25/24 01:23 Pulse 91 10/25/24 01:23 Resp 17 10/25/24 01:23 BP 104/47 10/25/24 01:23 Pulse Ox 97 10/25/24 01:23 FiO2 Intake & Output 10/24/24 10/25/24 10/25/24 18:59 06:59 18:59 Output Total 550 Balance -550 Weight 84.822 kg Output: Urine 550 Other: Voiding Method Toilet # Voids 1 1 - Labs CBC & Chem 7: 10/25/24 03:35 10/25/24 03:35 Labs: Abnormal Lab Results - Last 24 Hours (Table) 10/24/24 10/24/24 10/24/24 Range/Units 10:50 10:50 17:08 RBC 3.00 L (4.40-5.60) 10*6/uL Hgb 9.1 L (13.0-17.0) g/dL Hct 27.8 L (39.6-50.0) % RDW (11.5-14.5) % Plt Count 505 H (140-440) 10*3/uL MPV 8.9 L (9.5-12.2) fL Immature Gran # 0.07 H (0.00-0.04) 10*3/uL Lymphocytes # 0.79 L (0.90-5.00) 10*3/uL Sodium 135 L (137-145) mmol/L Glucose 257 H (74-99) mg/dL POC Glucose (mg/dL) 271 H (70-110) mg/dL Albumin 3.2 L (3.5-5.0) g/dL 10/24/24 10/25/24 10/25/24 Range/Units 20:06 03:35 06:03 RBC 2.59 L (4.40-5.60) 10*6/uL Hgb 7.9 L (13.0-17.0) g/dL Hct 24.7 L (39.6-50.0) % RDW 19.3 H (11.5-14.5) % Plt Count (140-440) 10*3/uL MPV 9.0 L (9.5-12.2) fL Immature Gran # 0.06 H (0.00-0.04) 10*3/uL Lymphocytes # (0.90-5.00) 10*3/uL Sodium (137-145) mmol/L Glucose (74-99) mg/dL POC Glucose (mg/dL) 198 H 162 H (70-110) mg/dL Albumin (3.5-5.0) g/dL
[2024-10-25] MEDS: IV FLUID CONTINUATION 1,000 ML IV ONE (12:01)
[2024-10-25] MEDS: ONDANSETRON 4 MG/2 ML VIAL IVP STA (12:19)
[2024-10-25] MEDS: DEXAMETHASONE SOD PHOSPHATE 4 MG/ML 1 ML VIAL IVP STA (12:19)
[2024-10-25 12:20] LABS: Glucose,Whole Blood 131 mg/dL (70-110)
[2024-10-25] MEDS ORDERED: PHENYLEPHRINE-0.9% NACL SYG 1,000 MCG/10 ML SYRINGE ONE (14:20)
[2024-10-25] MEDS ORDERED: PROPOFOL 10 MG/ML 20 ML VIAL IV ONE (14:20)
[2024-10-25] MEDS ORDERED: KETAMINE HCL IN 0.9 % NACL 50 MG/5 ML SYRINGE ONE (14:20)
[2024-10-25] MEDS ORDERED: LIDOCAINE 4% LTA KIT (4 ML) TOPICAL ONE (14:20)
[2024-10-25] MEDS ORDERED: fentaNYL (PF) 50 MCG/ML 2 ML AMP ONE (14:20)
[2024-10-25] MEDS ORDERED: LIDOCAINE 1% INJ 10MG/ML (20 ML MDV) ONE (14:20)
[2024-10-25] MEDS ORDERED: SUCCINYLCHOLINE CHLORIDE 200 MG/10 ML VIAL IV ONE (14:20)
[2024-10-25] MEDS ORDERED: GLYCOPYRROLATE 0.2 MG/ML 2 ML VIAL ONE (14:20)
[2024-10-25] MEDS: LACTATED RINGERS 1,000 ML IV ONE (14:50)
--- NOTE | 2024-10-25 15:23 | P.OP ---
Date of Procedure: 10/25/24 Preoperative Diagnosis: 1: Nonhealing left transmetatarsal amputation wound left foot. 2: Unstageable wound plantar surface left foot. 3: Femoral artery and diabetic vascular disease resulting in the above. Postoperative Diagnosis: Same. Procedure(s) Performed: 1: Debridement left foot transmetatarsal amputation and plantar surface wounds. (The transmetatarsal amputation wound measured 10 cm x 7 cm in length and width and 8 mm in depth. The plantar surface wound measured 8 x 3 cm in length and width and 4 mm in depth.) 2: Application of negative pressure wound VAC therapy to the left foot wounds. (Greater than 50 cm). Anesthesia: GETA Surgeon: Dagoberto Alicea Estimated Blood Loss (ml): 5 Urine output (ml): 0 Pathology: none sent Condition: stable Disposition: no change Indications for Procedure: Patient is a 74-year-old male with longstanding history of peripheral vascular disease and diabetes mellitus who had presented recently with gangrenous changes of the 3rd, 4th and 5th toes of the left foot having previously undergone transmetatarsal amputation of the 1st and 2nd toes in the distant past. He did undergo transmetatarsal amputation. Initially the wound appeared healthy however over time the wound has broken down. I saw him postoperatively yesterday in the office which demonstrated significant change in his wound requiring surgical debridement and further wound care. Patient was offered debridement etc. Patient wished to proceed. The procedure, risk and benefits were discussed. All questions were answered to patient's satisfaction. Description of Procedure: Patient was brought the op room placed in the supine position and was administered administered general endotracheal anesthesia by the department anesthesiology. The patient's antibiotic therapy was continued. Patient's left foot was sterilely prepped and draped in usual manner. Utilizing sharp surgical dissection the unstageable wound on the plantar surface of the foot was unroofed revealing relatively good blood flow. The debridement was continued to the level of the tendon level. This was performed to relatively healthy appearing tissue. The transmetatarsal wound was debrided of nonviable tissue with surgical scalpel. Both wounds were then irrigated with pulse lavage. Measurements of the wounds were as documented above. Negative pressure wound VAC therapy was then applied to both wounds and a good seal was obtained. Patient tolerated the procedure well and was taken to recovery in satisfactory and stable condition. Plan is for lower extremity surgical bypass in the near future to assist with improved healing characteristics.
[2024-10-25 15:49] LABS: Glucose,Whole Blood 148 mg/dL (70-110)
[2024-10-25] MEDS: HEPARIN SODIUM,PORCINE 5,000 UNIT/ML 1 ML VIAL SQ SCH (16:36)
[2024-10-25 16:51] LABS: Glucose,Whole Blood 164 mg/dL (70-110)
[2024-10-25 21:02] LABS: Glucose,Whole Blood 497 mg/dL (70-110)
[2024-10-25] MEDS: INSULIN GLARGINE (LANTUS) 100 UNIT/ML SYR SQ ONE (22:41)
--- NOTE | 2024-10-25 23:19 | P.CONS ---
History of Present Illness - Reason for Consult Consult date: 10/25/24 Diabetic foot wound Requesting physician: Dagoberto Alicea - Chief Complaint Left foot wound x days - History of Present Illness Patient is a 74-year-old male with a past medical history significant for diabetes mellitus hypertension hyperlipidemia reflux PAD in this patient who was recently admitted at this facility and did have a gangrenous toe in this patient also have MSSA bacteremia patient did have left lower extremity angiogram with arthrectomy of the left SFA with balloon dilatation and also transmetatarsal amputation of his left foot on his last visit patient was seen in outpatient vascular surgery for follow-up the patient was noticed to have wound dehiscence and concern for nonviable tissue for the patient was sent to the ER patient was admitted to the hospital he was taken to the OR this afternoon status post debridement of the left foot transmetatarsal amputation and plantar surface wound and application of the wound VAC therapy operative report mention debridement was done down to the tendon level wound culture had been obtained patient has been continue cefazolin and Flagyl on the basis of previous culture infectious disease was consulted today for further management of antibiotic therapy patient denies having any fever or any chills and no fever have been recorded during this hospital stay patient was mildly tachycardic but not hypotensive or hypoxic or need for supplemental oxygen patient did have a white count of 6.97 creatinine 0.7 electrolytes are normal liver enzymes are normal Review of Systems Positive point and negatives has been mentioned in the HPI, complete review of systems was performed and all other systems are negative Past Medical History Past Medical History: Diabetes Mellitus, Deep Vein Thrombosis (DVT), Eye Disorder, GERD/Reflux, Hyperlipidemia, Hypertension, Prostate Disorder Additional Past Medical History / Comment(s): L foot osteomylitis, DJD, DVT R leg, R eye macular degeneration, BPH, benign colon polyps. History of Any Multi-Drug Resistant Organisms: MRSA Year Discovered:: 06/19/21 MDRO Source:: MRSA TOE Past Surgical History: Orthopedic Surgery, Tonsillectomy Additional Past Surgical History / Comment(s): L great toe amputation, L 2nd toe "bones disconnected", colonoscopy with polypectomy, bilateral cataract removals, 3rd/4th/5th digit on left foor removed Past Anesthesia/Blood Transfusion Reactions: No Reported Reaction Past Psychological History: No Psychological Hx Reported Smoking Status: Current every day smoker Past Alcohol Use History: None Reported Past Drug Use History: None Reported - Past Family History Father History Unknown: Yes Family Medical History: No Reported History Mother Family Medical History: No Reported History Additional Family Medical History / Comment(s): Mother was healthy Medications and Allergies Home Medications Medication Instructions Recorded Confirmed Type metFORMIN HCL [Glucophage] 1,000 mg PO BID 12/23/16 10/24/24 History Aspirin [Adult Low Dose Aspirin EC] 81 mg PO DAILY 11/01/17 10/24/24 History Cholecalciferol [Vitamin D3 (25 50 mcg PO DAILY 06/17/21 10/24/24 History Mcg = 1000 Iu)] Losartan [Cozaar] 50 mg PO DAILY 06/17/21 10/24/24 History Rosuvastatin Calcium [Crestor] 40 mg PO DAILY 06/17/21 10/24/24 History Empagliflozin [Jardiance] 25 mg PO DAILY 10/03/24 10/24/24 History Podofilox 1 applic TOPICAL DAILY 10/03/24 10/24/24 History SITagliptin [Sitagliptin] 100 mg PO DAILY 10/03/24 10/24/24 History glipiZIDE [Glucotrol] 10 mg PO AC-BID 10/03/24 10/24/24 History Gabapentin [Neurontin] 300 mg PO TID 30 Days #90 cap 10/08/24 10/24/24 Rx cilostazoL [Pletal] 100 mg PO BID #60 tab 10/08/24 10/24/24 Rx Ascorbic Acid [Vitamin C] 1,000 mg PO DAILY #30 tablet 10/15/24 10/24/24 Rx Ferrous Sulfate [Iron (65 MG 325 mg PO DAILY #30 tab 10/15/24 10/24/24 Rx Elemental)] Folic Acid 1 mg PO DAILY #30 tab 10/15/24 10/24/24 Rx Tamsulosin HCl [Flomax] 0.8 mg PO HS #30 cap 10/15/24 10/24/24 Rx ceFAZolin [Kefzol] 2 gm IVP Q8HR #30 each 10/15/24 10/24/24 Rx metroNIDAZOLE [Flagyl] 500 mg PO Q8HR 10 Days #30 tab 10/15/24 10/24/24 Rx Multivitamins, Thera [Multivitamin 1 tab PO DAILY 10/17/24 10/24/24 History (formulary)] Allergies Allergy/AdvReac Type Severity Reaction Status Date / Time sulfamethoxazole Allergy Severe joint Verified 10/25/24 12:01 [From Bactrim] pain, aches ciprofloxacin [From Cipro] Allergy joint Verified 10/25/24 12:01 pain, aches lisinopril Allergy joint Verified 10/25/24 12:01 pain, cough trimethoprim [From Bactrim] Allergy joint Verified 10/25/24 12:01 pain, aches NABIL Inhibitors AdvReac Cough Verified 10/25/24 12:01 Physical Exam Vitals: Vital Signs Temp Pulse Resp BP Pulse Ox 10/25/24 15:45 88 16 133/65 94 L 10/25/24 15:28 89 16 131/68 93 L 10/25/24 15:12 93 16 140/69 100 10/25/24 12:01 96.7 F L 85 16 113/56 97 10/25/24 09:34 18 10/25/24 06:49 98.9 F 86 17 114/52 100 10/25/24 01:23 98.5 F 91 17 104/47 97 10/24/24 19:59 98.0 F 92 16 138/69 98 10/24/24 16:24 98.7 F 90 16 110/66 97 Intake and Output 10/25/24 10/25/24 10/25/24 06:59 14:59 22:59 Intake Total 1200 50 Output Total 5 Balance 1200 45 Intake: IV 1200 50 Output: Estimated Blood Loss 5 Other: Voiding Method Toilet # Voids 1 GENERAL DESCRIPTION: Elderly male lying in bed, no distress. No tachypnea or accessory muscle of respiration use. HEENT: Shows Pallor , no scleral icterus. Oral mucous membrane is dry. NECK: Trachea central, no thyromegaly. LUNGS: Unlabored breathing. Clear to auscultation anteriorly. No wheeze or crackle. HEART: S1, S2, regular rate and rhythm. No loud murmur ABDOMEN: Soft, no tenderness , guarding or rigidity, no organomegaly EXTREMITIES: Left foot wound is covered with a wound VAC SKIN: No rash, no masses palpable. NEUROLOGICAL: The patient is awake, alert, oriented x3, mood and affect normal. Results CBC & Chem 7: 10/26/24 04:47 10/26/24 04:47 Labs: Abnormal Lab Results - Last 24 Hours (Table) 10/24/24 10/24/24 10/25/24 Range/Units 17:08 20:06 03:35 RBC 2.59 L (4.40-5.60) X 10*6/uL Hgb 7.9 L (13.0-17.0) g/dL Hct 24.7 L (39.6-50.0) % RDW 19.3 H (11.5-14.5) % MPV 9.0 L (9.5-12.2) FL Immature Gran # 0.06 H (0.00-0.04) X 10*3/uL Glucose (70-110) mg/dL POC Glucose (mg/dL) 271 H 198 H (70-110) mg/dL Calcium (8.7-10.3) mg/dL 10/25/24 10/25/24 10/25/24 Range/Units 03:35 06:03 12:18 RBC (4.40-5.60) X 10*6/uL Hgb (13.0-17.0) g/dL Hct (39.6-50.0) % RDW (11.5-14.5) % MPV (9.5-12.2) FL Immature Gran # (0.00-0.04) X 10*3/uL Glucose 144 H (70-110) mg/dL POC Glucose (mg/dL) 162 H 131 H (70-110) mg/dL Calcium 7.9 L (8.7-10.3) mg/dL 10/25/24 Range/Units 15:48 RBC (4.40-5.60) X 10*6/uL Hgb (13.0-17.0) g/dL Hct (39.6-50.0) % RDW (11.5-14.5) % MPV (9.5-12.2) FL Immature Gran # (0.00-0.04) X 10*3/uL Glucose (70-110) mg/dL POC Glucose (mg/dL) 148 H (70-110) mg/dL Calcium (8.7-10.3) mg/dL Assessment and Plan (1) Wound of left foot Current Visit: Yes Status: Acute Code(s): S91.302A - UNSPECIFIED OPEN WOUND, LEFT FOOT, INITIAL ENCOUNTER SNOMED Code(s): 01323373164843899 (2) Diabetic foot infection Current Visit: Yes Status: Acute Code(s): E11.628 - TYPE 2 DIABETES MELLITUS WITH OTHER SKIN COMPLICATIONS; L08.9 - LOCAL INFECTION OF THE SKIN AND SUBCUTANEOUS TISSUE, UNSP SNOMED Code(s): 261830334 Plan: 1patient was recently admitted to the hospital with a necrotic left foot toe in this patient was status post left transmetatarsal amputation as well as arthrectomy of the left SFA and balloon dilatation now being readmitted to hospital with dehiscence of his left transmetatarsal amputation site wound in this patient was status post debridement of the wound and deep culture with operative report mentioning wound extending down to the tendon did not mention any bony involvement 2-for now we will cover the patient with cefazolin and Flagyl on the basis of previous culture while waiting for the OR culture to be finalized 3-local wound care with wound VAC will evaluate the wound with the next wound VAC change We will follow on clinical condition and cultures to further adjust medication if needed Thank you for this consultation we will follow the patient along with you Dictation was produced using [email or web address] dictation software. please excuse any grammatical, word or spelling errors. Time with Patient: Greater than 30
[2024-10-26 05:47] LABS: Basophils # (A) 0.03 10*3/uL (0.00-0.10); Basophils % (A) 0.4 %; Eosinophils # (A) 0.02 10*3/uL (0.04-0.35); Eosinophils % (A) 0.2 %; HCT 24.9 % (39.6-50.0); HGB 8.2 g/dL (13.0-17.0); Lymphocytes # (A) 0.97 10*3/uL (0.90-5.00); Lymphocytes % (A) 11.9 %; MCH 30.8 pg (27.0-32.0); MCHC 32.9 g/dL (32.0-37.0); MCV 93.6 fL (80.0-97.0); Mean Platelet Volume 9.3 fL (9.5-12.2); Monocytes # (A) 0.69 10*3/uL (0.20-1.00); Monocytes % (A) 8.5 %; Neutrophils # (A) 6.39 10*3/uL (1.80-7.70); Neutrophils % (A) 78.4 %; Platelet Count 380 10*3/uL (140-440); RBC 2.66 10*6/uL (4.40-5.60); RDW 18.7 % (11.5-14.5); WBC 8.15 10*3/uL (4.50-10.00)
[2024-10-26 06:02] LABS: Glucose,Whole Blood 343 mg/dL (70-110)
[2024-10-26 06:15] LABS: ALT <6 U/L (4-49); AST 11 U/L (17-59); African American GFR (CKD) >90 (>60 ml/min/1.73 sqM); Albumin 2.5 g/dL (3.5-5.0); Albumin/Globulin Ratio 0.9; Alkaline Phosphatase 80 U/L (38-126); Anion Gap 8 mmol/L; Blood Urea Nitrogen 15 mg/dL (9-20); Calcium 8.2 mg/dL (8.4-10.2); Carbon Dioxide 25 mmol/L (22-30); Chloride 99 mmol/L (98-107); Globulin 2.7 g/dL; Glucose 327 mg/dL (74-99); Magnesium 1.8 mg/dL (1.6-2.3); Non-African American GFR(CKD) >90 (>60 ml/min/1.73 sqM); Potassium 4.2 mmol/L (3.5-5.1); Sodium 132 mmol/L (137-145); Total Bilirubin 0.2 mg/dL (0.2-1.3); Total Protein 5.2 g/dL (6.3-8.2)
[2024-10-26] MEDS: INSULIN LISPRO (HumaLOG) 100 UNIT/ML 10 mL VL SQ SCH (09:24)
[2024-10-26] MEDS ORDERED: HYDROcodone/APAP 7.5-325MG 1 EACH TAB PO PRN (10:20)
[2024-10-26] MEDS: ceFAZolin 2 GM in DEXTROSE 5% IN WATER 50 ML IVPB SCH (10:53)
[2024-10-26 12:03] LABS: Glucose,Whole Blood 355 mg/dL (70-110)
--- NOTE | 2024-10-26 12:48 | P.PN ---
Subjective Progress Note Date: 10/26/24 Hospital Course: 74-year-old male with PMH of [id number] diabetes mellitus, hypertension, hyperlipidemia, previous DVT not anticoagulated and BPH, PAD, left foot osteomyelitis status post transmetatarsal amputation of left foot presenting to the ED with wound dehiscence. He had a follow-up appointment with Dr. Mendoza s/p left TMA. Dr. Mendoza was not satisfied with the progression of healing and recommend to come at the hospital for debridement. Patient admits to significant left foot pain when he first came in, but states pain has been controlled after receiving medication. Patient denies any confirmed fevers, chills, chest pain, shortness of breath nausea, vomiting, abdominal pain, urinary symptoms. Social history: -Smoking: Current everyday smoker. [id number] history. -Alcohol: Denies -Recreational drug use: Denies Labs on admission: WBC 7.41, Hgb 9.1, MCV 92.7, platelet 5.5, sodium 135, glucose 257 Vital signs on admission: T 97.4 F, MS 101, RR 18, BP 129/64, O2 saturation 99% on room air ED documentation reviewed. Patient be admitted for debridement, along with vascular surgery, for his left TMA wound dehiscence. Subjective: Patient seen and examined at bedside. No acute events overnight. Patient st ated surgery went well. States he is 5/10 pain and wondering if any changes should be made to his pain medications. Pertinent positives and negatives as discussed above, a complete review of systems was performed and all other systems are negative. Vitals: Signs Reviewed Physical Exam: General: non toxic, no distress, appears at stated age, wound vac Derm: no unusual rashes/lesions, warm Head: atraumatic, normocephalic, symmetric Eyes: EOMI, anicteric sclera, pupils equal round reactive to light ENT: Nose and ears atraumatic Mouth: no lip lesion, mucus membranes moist Cardiovascular: S1S2 reg, no murmur, positive dorsalis pedis pulse bilateral, no edema Lungs: CTA bilaterally, no rhonchi, no rales, no accessory muscle use Abdominal: soft, nontender to palpation, no guarding Ext: Left foot TMA, dressing clean and intact, wound on plantar aspect of left foot Neuro: CN II-XI grossly intact, no gross focal neuro deficits Psych: Alert, oriented to person, place, and time Data Received Today: Hgb 8.2, glucose 327 Imaging: US vein mapping b/l: pending Assessment/Plan: 74-year-old male with PMH of [id number] diabetes mellitus, hypertension, hyperlipidemia, previous DVT not anticoagulated and BPH, left foot osteomyelitis status post transmetatarsal amputation of left foot presenting to the ED with wound dehiscence. #. Left transmetatarsal wound dehiscence status post transmetatarsal amputation s/p debridement #. Peripheral artery disease #. Plantar surface wound Status post debridement of left foot TMA and plantar surface wound and application of wound VAC Continue with Cefazoliln 2 gm IVPB q8hr and Flagyl 500 mg IVPB q8hr Wound cultures from OR pending Continue aspirin 81 mg PO QD and cilostazol 500 mg PO BID Morphine sulfate 4 mg IV every 4 hours as needed for pain control [place] increased to [place] 4325 PO q4 hours as needed for pain control Discussed with vascular surgery about patient's claudication and further intervention was needed for PAD. Dr. Fairbanks is aware and will likely follow-up outpatient regarding this. Vascular surgery following ID following, currently on Flagyl and cefazolin, wound cultures pending #. Clx-ssukkco-tpeduffeh type 2 diabetes mellitus #. Hyperglycemia Insulin SQ sliding scale Accu-Cheks ACHS Monitor for hypoglycemia Placed back on Lantus SQ 10 unit last night and Humalog 3 unit AC TID POC glucose 343 this morning, will closely monitor and make adjustments to insulin in readings remain elevated Was recently given Decadron prior to surgery Consistent carbohydrate diet Hold metformin, glipizide, sitagliptin, Jardiance #. History of DVT not currently on anticoagulation Bilateral duplex venous ultrasound showing no evidence of DVT on last visit #. Anemia of chronic disease #. Thrombocytosis, resolved No signs of acute bleeding, continue to monitor CBC Chronic: #Hypertension: Hold losartan 50 mg daily #Hyperlipidemia: Continue with Crestor 40 mg PO QD #BPH: Continue with Flomax 0.4 mg PO QD #Chronic tobacco use: recommended smoking cessation #Neuropathy: Continue with gabapentin increased to 500 mg PO TID DVT prophylaxis: Heparin 5000 unit SQ q8hr Code status: Full code Anticipated discharge place: Pending clinical course Anticipated discharge time: Pending clinical course Nando Cabello MD PGY-1 IM Dictation was produced using [employer] dictation software. please excuse any grammatical, word or spelling errors. I have seen and evaluated the patient today. Discussed with the resident and agree with the residents finding and plan as documented in the resident's note. Changes highlighted in blue font. Objective - Vital Signs Vital signs: Vital Signs Temp 98.0 F 10/26/24 06:45 Pulse 86 10/26/24 06:45 Resp 18 10/26/24 06:45 BP 114/63 10/26/24 06:45 Pulse Ox 95 10/26/24 06:45 FiO2 Intake & Output 10/25/24 10/26/24 10/26/24 18:59 06:59 18:59 Intake Total 1550 Output Total 405 Balance 1145 Intake: IV 1250 Oral 300 Output: Urine 400 Estimated Blood Loss 5 Other: Voiding Method Urinal Urinal # Voids 2 # Bowel Movements 1 - Labs CBC & Chem 7: 10/26/24 04:47 10/26/24 04:47 Labs: Abnormal Lab Results - Last 24 Hours (Table) 10/25/24 10/25/24 10/25/24 Range/Units 12:18 15:48 16:50 RBC (4.40-5.60) 10*6/uL Hgb (13.0-17.0) g/dL Hct (39.6-50.0) % RDW (11.5-14.5) % MPV (9.5-12.2) fL Immature Gran # (0.00-0.04) 10*3/uL Eosinophils # (0.04-0.35) 10*3/uL Sodium (137-145) mmol/L Glucose (74-99) mg/dL POC Glucose (mg/dL) 131 H 148 H 164 H (70-110) mg/dL Calcium (8.4-10.2) mg/dL AST (17-59) U/L Total Protein (6.3-8.2) g/dL Albumin (3.5-5.0) g/dL 10/25/24 10/26/24 10/26/24 Range/Units 20:58 04:47 04:47 RBC 2.66 L (4.40-5.60) 10*6/uL Hgb 8.2 L (13.0-17.0) g/dL Hct 24.9 L (39.6-50.0) % RDW 18.7 H (11.5-14.5) % MPV 9.3 L (9.5-12.2) fL Immature Gran # 0.05 H (0.00-0.04) 10*3/uL Eosinophils # 0.02 L (0.04-0.35) 10*3/uL Sodium 132 L (137-145) mmol/L Glucose 327 H (74-99) mg/dL POC Glucose (mg/dL) 497 H (70-110) mg/dL Calcium 8.2 L (8.4-10.2) mg/dL AST 11 L (17-59) U/L Total Protein 5.2 L (6.3-8.2) g/dL Albumin 2.5 L (3.5-5.0) g/dL 10/26/24 Range/Units 06:00 RBC (4.40-5.60) 10*6/uL Hgb (13.0-17.0) g/dL Hct (39.6-50.0) % RDW (11.5-14.5) % MPV (9.5-12.2) fL Immature Gran # (0.00-0.04) 10*3/uL Eosinophils # (0.04-0.35) 10*3/uL Sodium (137-145) mmol/L Glucose (74-99) mg/dL POC Glucose (mg/dL) 343 H (70-110) mg/dL Calcium (8.4-10.2) mg/dL AST (17-59) U/L Total Protein (6.3-8.2) g/dL Albumin (3.5-5.0) g/dL Microbiology - Last 24 Hours (Table) 10/25/24 14:55 Gram Stain - Preliminary Foot - Left
--- NOTE | 2024-10-26 13:11 | US ---
EXAMINATION TYPE: US vein mapping BILAT DATE OF EXAM: 10/26/2024 12:56 PM COMPARISON: 10/05/2024, 10/03/2024, 06/17/2021 CLINICAL INDICATION: Male, 74 years old with history of pre op planning; , Preop- Cardiac Surgery TECHNIQUE: Grayscale and color Doppler imaging of the lower extremity venous system. SIDE PERFORMED: Bilateral FINDINGS: PATIENT HISTORY: Smoker: Yes Heart Disease: Unknown Previous DVT: Long time ago Vascular Surgery: Unknown Discoloration: Unknown Hypertension: Unknown Diabetes: Yes Paralysis: No Varicosities: No Edema: No DUPLEX FINDINGS: Greater Saphenous: Color flow seen Lesser Saphenous: Color flow seen Measurements in mm: Right Greater Saphenous: Groin: 4.7 x 4.3 mm High Thigh: 3.7 x 3.5 mm Mid Thigh: 2.9 x 2.9 mm Above Knee: 3.0 x 2.6 mm Knee: 3.1 x 2.3 mm Below Knee: 5.0 x 3.5 mm Mid Calf: 4.6 x 3.4 mm At Ankle: 4.4 x 3.3 mm Left Greater Saphenous: Groin: 7.8 x 5.2 mm High Thigh: 4.3 x 3.5 mm Mid Thigh: 4.8 x 4.2 mm Above Knee: 5.2 x 3.9 mm Knee: 5.9 x 3.9 mm Below Knee: 5.6 x 4.9 mm Mid Calf: 6.0 x 4.6 mm At Ankle: 6.0 x 4.2 mm IMPRESSION: 1. No evidence for occlusion. 2. GSV measurements listed above. 3. Performing surgeon to determine viability as conduit. [facility], , 10/26/2024 1:09 PM
--- NOTE | 2024-10-26 14:39 | P.PN ---
Subjective Progress Note Date: 10/26/24 Principal diagnosis: Reason for follow-up is left diabetic foot wound/infection Patient is a 74-year-old male with a past medical history significant for diabetes mellitus hypertension hyperlipidemia reflux PAD in this patient who was recently admitted at this facility and did have a gangrenous toe in this patient also have MSSA bacteremia patient did have left lower extremity angiogram with arthrectomy of the left SFA with balloon dilatation and also transmetatarsal amputation now being readmitted to hospital with dehiscence of the wound status post debridement and deep culture which are currently pending. On today's evaluation that is 10/26/2024, Patient is afebrile patient is currently on room air and denies having any shortness of breath, the patient denies any chest pain or cough, the patient denies any nausea vomiting did not have any abdominal pain and no diarrhea, pain to the left foot currently controlled. Patient white count is 8.15 creatinine 0.66 cultures currently pending Objective - Vital Signs Vital signs: Vital Signs Temp 98.0 F 10/26/24 06:45 Pulse 86 10/26/24 06:45 Resp 18 10/26/24 06:45 BP 114/63 10/26/24 06:45 Pulse Ox 95 10/26/24 06:45 FiO2 Intake & Output 10/25/24 10/26/24 10/26/24 18:59 06:59 18:59 Intake Total 1550 Output Total 405 500 Balance 1145 -500 Intake: IV 1250 Oral 300 Output: Urine 400 500 Estimated Blood Loss 5 Other: Voiding Method Urinal Urinal # Voids 2 # Bowel Movements 1 - Exam GENERAL DESCRIPTION: An elderly male lying in bed in no distress RESPIRATORY SYSTEM: Unlabored breathing , decreased breath sounds at bases HEART: S1 S2 regular rate and rhythm , ABDOMEN: Soft , no tenderness EXTREMITIES: Left foot wound is currently covered with a wound VAC - Labs CBC & Chem 7: 10/26/24 04:47 10/26/24 04:47 Labs: Abnormal Lab Results - Last 24 Hours (Table) 10/25/24 10/25/24 10/25/24 Range/Units 15:48 16:50 20:58 RBC (4.40-5.60) 10*6/uL Hgb (13.0-17.0) g/dL Hct (39.6-50.0) % RDW (11.5-14.5) % MPV (9.5-12.2) fL Immature Gran # (0.00-0.04) 10*3/uL Eosinophils # (0.04-0.35) 10*3/uL Sodium (137-145) mmol/L Glucose (74-99) mg/dL POC Glucose (mg/dL) 148 H 164 H 497 H (70-110) mg/dL Calcium (8.4-10.2) mg/dL AST (17-59) U/L Total Protein (6.3-8.2) g/dL Albumin (3.5-5.0) g/dL 10/26/24 10/26/24 10/26/24 Range/Units 04:47 04:47 06:00 RBC 2.66 L (4.40-5.60) 10*6/uL Hgb 8.2 L (13.0-17.0) g/dL Hct 24.9 L (39.6-50.0) % RDW 18.7 H (11.5-14.5) % MPV 9.3 L (9.5-12.2) fL Immature Gran # 0.05 H (0.00-0.04) 10*3/uL Eosinophils # 0.02 L (0.04-0.35) 10*3/uL Sodium 132 L (137-145) mmol/L Glucose 327 H (74-99) mg/dL POC Glucose (mg/dL) 343 H (70-110) mg/dL Calcium 8.2 L (8.4-10.2) mg/dL AST 11 L (17-59) U/L Total Protein 5.2 L (6.3-8.2) g/dL Albumin 2.5 L (3.5-5.0) g/dL 10/26/24 Range/Units 12:01 RBC (4.40-5.60) 10*6/uL Hgb (13.0-17.0) g/dL Hct (39.6-50.0) % RDW (11.5-14.5) % MPV (9.5-12.2) fL Immature Gran # (0.00-0.04) 10*3/uL Eosinophils # (0.04-0.35) 10*3/uL Sodium (137-145) mmol/L Glucose (74-99) mg/dL POC Glucose (mg/dL) 355 H (70-110) mg/dL Calcium (8.4-10.2) mg/dL AST (17-59) U/L Total Protein (6.3-8.2) g/dL Albumin (3.5-5.0) g/dL Microbiology - Last 24 Hours (Table) 10/25/24 14:55 Gram Stain - Preliminary Foot - Left Assessment and Plan (1) Wound of left foot Current Visit: Yes Status: Acute Code(s): S91.302A - UNSPECIFIED OPEN WOUND, LEFT FOOT, INITIAL ENCOUNTER SNOMED Code(s): 83701091858733391 (2) Diabetic foot infection Current Visit: Yes Status: Acute Code(s): E11.628 - TYPE 2 DIABETES MELLITUS WITH OTHER SKIN COMPLICATIONS; L08.9 - LOCAL INFECTION OF THE SKIN AND SUBCUTANEOUS TISSUE, UNSP SNOMED Code(s): 817891948 Plan: 1patient was recently admitted to the hospital with left foot necrotic toe in this patient was status post left transmetatarsal amputation as well as arthrectomy of the left SFA and balloon dilatation now being readmitted to hospital with dehiscence of his left transmetatarsal amputation site wound in this patient was status post debridement of the wound and deep culture with operative report mentioning wound extending down to the tendon did not mention a ny bony involvement 2--local wound care with wound VAC will evaluate the wound with the next wound V AC change 3patient is currently being treated with cefazolin and Flagyl to continue while waiting for the culture to finalize Dictation was produced using [employer] dictation software. please excuse any grammatical, word or spelling errors.
[2024-10-26] MEDS: HYDROcodone/APAP 7.5-325MG 1 EACH TAB PO PRN (15:19)
[2024-10-26] MEDS: GABAPENTIN 100 MG CAP PO SCH (15:19)
[2024-10-26] MEDS: GABAPENTIN 400 MG CAP PO SCH (15:19)
[2024-10-26] MEDS ORDERED: GABAPENTIN 400 MG CAP PO SCH (16:00)
[2024-10-26 16:56] LABS: Glucose,Whole Blood 172 mg/dL (70-110)
[2024-10-26 20:59] LABS: Glucose,Whole Blood 150 mg/dL (70-110)
[2024-10-26] MEDS: INSULIN GLARGINE (LANTUS) 100 UNIT/ML SYR SQ SCH (23:02)
[2024-10-27 05:03] LABS: Basophils # (A) 0.04 10*3/uL (0.00-0.10); Basophils % (A) 0.6 %; Eosinophils # (A) 0.14 10*3/uL (0.04-0.35); Eosinophils % (A) 2.3 %; HCT 23.5 % (39.6-50.0); HGB 7.6 g/dL (13.0-17.0); Lymphocytes # (A) 1.13 10*3/uL (0.90-5.00); Lymphocytes % (A) 18.3 %; MCH 30.5 pg (27.0-32.0); MCHC 32.3 g/dL (32.0-37.0); MCV 94.4 fL (80.0-97.0); Mean Platelet Volume 8.9 fL (9.5-12.2); Monocytes # (A) 0.49 10*3/uL (0.20-1.00); Neutrophils # (A) 4.33 10*3/uL (1.80-7.70); Neutrophils % (A) 70.3 %; Platelet Count 338 10*3/uL (140-440); RBC 2.49 10*6/uL (4.40-5.60); RDW 18.6 % (11.5-14.5); WBC 6.16 10*3/uL (4.50-10.00)
[2024-10-27 05:21] LABS: ALT <6 U/L (4-49); AST 12 U/L (17-59); African American GFR (CKD) >90 (>60 ml/min/1.73 sqM); Albumin 2.6 g/dL (3.5-5.0); Albumin/Globulin Ratio 0.9; Alkaline Phosphatase 74 U/L (38-126); Anion Gap 6 mmol/L; Blood Urea Nitrogen 10 mg/dL (9-20); Calcium 8.5 mg/dL (8.4-10.2); Carbon Dioxide 26 mmol/L (22-30); Chloride 102 mmol/L (98-107); Globulin 2.8 g/dL; Glucose 113 mg/dL (74-99); Magnesium 1.6 mg/dL (1.6-2.3); Non-African American GFR(CKD) >90 (>60 ml/min/1.73 sqM); Potassium 4.1 mmol/L (3.5-5.1); Sodium 134 mmol/L (137-145); Total Bilirubin 0.2 mg/dL (0.2-1.3); Total Protein 5.4 g/dL (6.3-8.2)
[2024-10-27 06:54] LABS: Glucose,Whole Blood 115 mg/dL (70-110)
[2024-10-27 12:11] LABS: Glucose,Whole Blood 222 mg/dL (70-110)
[2024-10-27] MEDS: HYDROcodone/APAP 10-325MG 1 EACH TAB PO PRN (12:16)
[2024-10-27] MEDS: SODIUM FERRIC GLUCONAT-SUCROSE 125 MG in SODIUM CHLORIDE 0.9% 100 ML IVPB SCH (12:16)
--- NOTE | 2024-10-27 14:46 | P.PN ---
Subjective Progress Note Date: 10/27/24 Principal diagnosis: Reason for follow-up is left diabetic foot wound/infection Patient is a 74-year-old male with a past medical history significant for diabetes mellitus hypertension hyperlipidemia reflux PAD in this patient who was recently admitted at this facility and did have a gangrenous toe in this patient also have MSSA bacteremia patient did have left lower extremity angiogram with arthrectomy of the left SFA with balloon dilatation and also transmetatarsal amputation now being readmitted to hospital with dehiscence of the wound status post debridement and deep culture which are currently pending. On today's evaluation that is 10/27/2024, patient has been afebrile, patient is breathing comfortably and is currently on room air, patient denies having any chest pain and cough, patient denies nausea vomiting or diarrhea and no abdominal pain still complaining of pain to the left foot but no worsening. Patient did have a white count of 6.16, creatinine 0.73 culture now growing Enterobacter Objective - Vital Signs Vital signs: Vital Signs Temp 98.2 F 10/27/24 07:01 Pulse 83 10/27/24 07:01 Resp 18 10/27/24 07:01 BP 135/68 10/27/24 07:01 Pulse Ox 96 10/27/24 07:01 FiO2 Intake & Output 10/26/24 10/27/24 10/27/24 18:59 06:59 18:59 Intake Total 1250 Output Total 850 1400 Balance 400 -1400 Intake: Oral 1250 Output: Urine 850 1400 Other: # Voids 3 - Exam GENERAL DESCRIPTION: An elderly male lying in bed in no distress RESPIRATORY SYSTEM: Unlabored breathing , decreased breath sounds at bases HEART: S1 S2 regular rate and rhythm , ABDOMEN: Soft , no tenderness EXTREMITIES: Left foot wound is currently covered with a wound VAC - Labs CBC & Chem 7: 10/27/24 04:27 10/27/24 04:27 Labs: Abnormal Lab Results - Last 24 Hours (Table) 10/26/24 10/26/24 10/27/24 Range/Units 16:54 20:57 04: RBC 2.49 L (4.40-5.60) 10*6/uL Hgb 7.6 L (13.0-17.0) g/dL Hct 23.5 L (39.6-50.0) % RDW 18.6 H (11.5-14.5) % MPV 8.9 L (9.5-12.2) fL Sodium (137-145) mmol/L Glucose (74-99) mg/dL POC Glucose (mg/dL) 172 H 150 H (70-110) mg/dL AST (17-59) U/L Total Protein (6.3-8.2) g/dL Albumin (3.5-5.0) g/dL 10/27/24 10/27/24 10/27/24 Range/Units 04: 06:53 12:09 RBC (4.40-5.60) 10*6/uL Hgb (13.0-17.0) g/dL Hct (39.6-50.0) % RDW (11.5-14.5) % MPV (9.5-12.2) fL Sodium 134 L (137-145) mmol/L Glucose 113 H (74-99) mg/dL POC Glucose (mg/dL) 115 H 222 H (70-110) mg/dL AST 12 L (17-59) U/L Total Protein 5.4 L (6.3-8.2) g/dL Albumin 2.6 L (3.5-5.0) g/dL Microbiology - Last 24 Hours (Table) 10/25/24 14:55 Gram Stain - Preliminary Foot - Left Wound Culture - Preliminary Enterobacter cloacae Complex Assessment and Plan (1) Wound of left foot Current Visit: Yes Status: Acute Code(s): S91.302A - UNSPECIFIED OPEN WOUND, LEFT FOOT, INITIAL ENCOUNTER SNOMED Code(s): 96091655458660820 (2) Diabetic foot infection Current Visit: Yes Status: Acute Code(s): E11.628 - TYPE 2 DIABETES MELLITUS WITH OTHER SKIN COMPLICATIONS; L08.9 - LOCAL INFECTION OF THE SKIN AND SUBCUTANEOUS TISSUE, UNSP SNOMED Code(s): 135912540 Plan: 1patient was recently admitted to the hospital with left foot necrotic toe in this patient was status post left transmetatarsal amputation as well as arthrectomy of the left SFA and balloon dilatation now being readmitted to hospital with dehiscence of his left transmetatarsal amputation site wound in this patient was status post debridement of the wound and deep culture with operative report mentioning wound extending down to the tendon did not mention any bony involvement 2--local wound care with wound VAC will evaluate the wound with the next wound VAC change 3patient cultures currently growing Enterobacter we will discontinue cefazolin and start the patient on cefepime continue with the Flagyl Dictation was produced using [employer] dictation software. please excuse any grammatical, word or spelling errors. Time with Patient: Less than 30
--- NOTE | 2024-10-27 15:00 | P.PN ---
Subjective Progress Note Date: 10/27/24 74-year-old with diabetes, HTN, HLD, and previous DVT admitted with wound dehiscence from recent transmetatarsal amputation due to osteomyelitis and bacteremia. Patient seen and examined at bedside. Changes in gabapentin and [place] were ineffective continues to have pain. Denies nausea, vomiting, or diarrhea. Vital signs reviewed General: Nontoxic, no distress, appears at stated age Cardiovascular: S1S2 reg, no murmur Lungs: CTA bilateral, no rhonchi, no rales, no accessory muscle use Abdominal: Soft, nontender to palpation, no guarding Ext: Left lower extremity with wound VAC in place Neuro: CN II-XI grossly intact, no focal neuro deficits Psych: Alert, oriented, appropriate affect Assessment/Plan: #. Left transmetatarsal wound dehiscence status post transmetatarsal amputation s/p debridement #. Peripheral artery disease #. Plantar surface wound Status post debridement of left foot TMA and plantar surface wound with wound VAC in place Started on cefepime on 10/27 and continued on Flagyl IV piggyback day #3 Infectious disease following Wound cultures with Enterobacter Continue aspirin 81 mg PO QD and cilostazol 500 mg PO BID Discontinue [place], failed [place] 10/325 we will start Percocet 7.5Q6 as needed pain Vascular surgery recommendations appreciated Infectious disease recommendations reviewed #. Severe iron deficiency anemia Iron studies reviewed from last hospital stay with iron saturation of less than 10% indicating need for IV iron replacement. Start ferric gluconate 125 mg 1 bag daily x 3 days Follow CBC #. Tus-ugatljf-rzykxrxzj type 2 diabetes mellitus #. Hyperglycemia Sliding scale insulin with Accu-Cheks Monitor for hypoglycemia Continue Lantus SQ 10 unit last night and Humalog 3 unit AC TID Glucose improved to a.m. fasting of 115 Metformin, glipizide, sitagliptin, Jardiance on hold #. History of DVT not currently on anticoagulation Due to significant increasing pain with cramping in the back of the calf we will repeat venous duplex ultrasound #. Anemia of chronic disease #. Thrombocytosis, resolved No signs of acute bleeding, continue to monitor CBC Chronic: #Hypertension: Hold losartan 50 mg daily #Hyperlipidemia: Continue with Crestor 40 mg PO QD #BPH: Continue with Flomax 0.4 mg PO QD #Chronic tobacco use: recommended smoking cessation #Neuropathy: Continue with gabapentin increased to 500 mg PO TID Imaging: None new Data Review: CBC remarkable for hemoglobin of 7.6. Basic metabolic profile remarkable for glucose of 115. DVT prophylaxis: Heparin subcu Anticipated discharge date: Pending clinical course Anticipated discharge place: [facility] This dictation was prepared using [employer] voice recognition software. Though every attempt is made to correct errors during dictation some may still exist. Objective - Vital Signs Vital signs: Vital Signs Temp 98.2 F 10/27/24 07:01 Pulse 83 10/27/24 07:01 Resp 18 10/27/24 07:01 BP 135/68 10/27/24 07:01 Pulse Ox 96 10/27/24 07:01 FiO2 Intake & Output 10/26/24 10/27/24 10/27/24 18:59 06:59 18:59 Intake Total 1250 Output Total 850 1400 Balance 400 -1400 Intake: Oral 1250 Output: Urine 850 1400 Other: # Voids 3 - Labs CBC & Chem 7: 10/27/24 04:27 10/27/24 04:27 Labs: Abnormal Lab Results - Last 24 Hours (Table) 10/26/24 10/26/24 10/27/24 Range/Units 16:54 20:57 04:27 RBC 2.49 L (4.40-5.60) 10*6/uL Hgb 7.6 L (13.0-17.0) g/dL Hct 23.5 L (39.6-50.0) % RDW 18.6 H (11.5-14.5) % MPV 8.9 L (9.5-12.2) fL Sodium (137-145) mmol/L Glucose (74-99) mg/dL POC Glucose (mg/dL) 172 H 150 H (70-110) mg/dL AST (17-59) U/L Total Protein (6.3-8.2) g/dL Albumin (3.5-5.0) g/dL 10/27/24 10/27/24 10/27/24 Range/Units 04:27 06:53 12:09 RBC (4.40-5.60) 10*6/uL Hgb (13.0-17.0) g/dL Hct (39.6-50.0) % RDW (11.5-14.5) % MPV (9.5-12.2) fL Sodium 134 L (137-145) mmol/L Glucose 113 H (74-99) mg/dL POC Glucose (mg/dL) 115 H 222 H (70-110) mg/dL AST 12 L (17-59) U/L Total Protein 5.4 L (6.3-8.2) g/dL Albumin 2.6 L (3.5-5.0) g/dL Microbiology - Last 24 Hours (Table) 10/25/24 14:55 Gram Stain - Preliminary Foot - Left Wound Culture - Preliminary Enterobacter cloacae Complex
[2024-10-27] MEDS: oxyCODONE-APAP 7.5-325MG 1 EACH TAB PO PRN (15:10)
[2024-10-27] MEDS ORDERED: CEFEPIME 2 GM in SODIUM CHLORIDE 0.9% 100 ML IVPB SCH (16:00)
--- NOTE | 2024-10-27 16:33 | US ---
EXAMINATION TYPE: US venous doppler duplex LE LT DATE OF EXAM: 10/27/2024 4:14 PM COMPARISON: NONE CLINICAL INDICATION: Male, 74 years old with history of pain and swelling; PAD, PAIN TECHNIQUE: The lower extremity deep venous system is examined utilizing real time linear array sonog lacey with graded compression, color doppler sonography, and spectral doppler. SIDE PERFORMED: Left FINDINGS: VESSELS IMAGED: Common Femoral Vein Deep Femoral Vein Greater Saphenous Vein * Femoral Vein Popliteal Vein Small Saphenous Vein * Proximal Calf Veins (* superficial vessels) Left Leg: Negative for DVT, Color Doppler imaging shows patency of the vessels. Spectral waveforms a re within normal limits. IMPRESSION: No ultrasound evidence for deep venous thrombosis. [facility], , 10/27/2024 4:31 PM
[2024-10-27 16:47] LABS: Glucose,Whole Blood 351 mg/dL (70-110)
[2024-10-27 20:27] LABS: Glucose,Whole Blood 223 mg/dL (70-110)
[2024-10-28 06:05] LABS: Glucose,Whole Blood 92 mg/dL (70-110)
[2024-10-28 08:37] LABS: HCT 25.5 % (39.6-50.0); HGB 8.1 g/dL (13.0-17.0); MCH 30.3 pg (27.0-32.0); MCHC 31.8 g/dL (32.0-37.0); MCV 95.5 FL (80.0-97.0); Mean Platelet Volume 9.2 FL (9.5-12.2); NRBC Per 100 WBC 0 X 10*3/uL (0.00-0.01); Platelet Count 344 X 10*3/uL (140-440); RBC 2.67 X 10*6/uL (4.40-5.60); RDW 18.3 % (11.5-14.5)
[2024-10-28 08:51] LABS: Blood Urea Nitrogen 10.8 mg/dL (9.0-27.0); Calcium 8.2 mg/dL (8.7-10.3); Carbon Dioxide 25.7 mmol/L (21.6-31.8); Chloride 102 mmol/L (96-109); Glucose 63 mg/dL (70-110); Potassium 4.5 mmol/L (3.5-5.5); Sodium 137 mmol/L (135-145)
--- NOTE | 2024-10-28 09:22 | P.PN ---
Subjective Progress Note Date: 10/28/24 Principal diagnosis: Left foot infection Patient is seen and examined today as a follow-up. He is postop day #3 for left TMA debridement with wound VAC application. Impending plan is to undergo left lower extremity femoral to popliteal bypass this coming . Patient sta demario no pain in his foot just in his left calf. Otherwise no other complaints. He has been afebrile. Preliminary wound culture with Enterobacter Cloacae complex. On antibiotics with infectious disease following. Objective - Vital Signs Vital signs: Vital Signs Temp 98.3 F 10/28/24 02:01 Pulse 98 10/28/24 02:01 Resp 19 10/28/24 02:01 BP 122/63 10/28/24 02:01 Pulse Ox 93 L 10/28/24 02:01 FiO2 Intake & Output 10/27/24 10/28/24 10/28/24 18:59 06:59 18:59 Intake Total 350 Balance 350 Intake: Intake, IV Titration 350 Amount Cefepime 2 gm In Dextrose 100 5% in Water 100 ml @ 25 mls/hr IVPB Q8HR [facility] Rx#: [id number] Sodium Ferric Gluconat- 100 Sucrose 125 mg In Sodium Chloride 0.9% 100 ml @ 100 mls/hr IVPB DAILY [facility] Rx#:[id number] ceFAZolin 2 gm In 50 Dextrose 5% in Water 50 ml @ 100 mls/hr IVPB Q8H [facility] Rx#:[id number] metroNIDAZOLE-NS PMX 500 100 mg In Saline 1 100ml.bag @ 100 mls/hr IVPB Q8HR [facility] Rx#:[id number] Other: # Voids 4 - Exam General appearance: The patient is alert, oriented, appears in no acute distress. HET: Head is normocephalic and atraumatic. Pupils are equal and reactive. Neck: Supple. Heart: Regular. Lungs: Equal expansion, normal respiratory effort. Abdomen: Soft, nontender, nondistended. Extremities: Left foot with wound VAC in place with good suction with serosanguineous drainage. Calf tenderness, lower extremity warm to the touch with good capillary refill. Neurological: Alert and oriented.. - Labs CBC & Chem 7: 10/28/24 02:16 10/28/24 02:16 Labs: Abnormal Lab Results - Last 24 Hours (Table) 10/27/24 10/27/24 10/27/24 Range/Units 12:09 16:46 20:25 POC Glucose (mg/dL) 222 H 351 H 223 H (70-110) mg/dL Microbiology - Last 24 Hours (Table) 10/25/24 14:55 Gram Stain - Preliminary Foot - Left Wound Culture - Preliminary Enterobacter cloacae Complex Assessment and Plan Assessment: 1. Left TMA wound status post excisional debridement with wound VAC application 2. Peripheral arterial disease 3. Diabetes mellitus 4. Chronic tobacco use 5. History of previous gangrenous toes status post amputation 6. History of left lower extremity deep vein thrombosis Plan: 1. Keep wound VAC in place, change Fridays 2. Pain medication as needed 3. Patient may have consistent carbohydrate diet 4. Left lower extremity vein mapping ordered 5. Recommend smoking cessation 6. Consult to cardiology for cardiac clearance for left lower extremity femoropopliteal bypass 7. Tentative plan for left lower extremity femoropopliteal bypass with in situ vein on 10/31/2024 8. Consult to infectious disease, appreciate recommendations on antibiotics Thank you for this consultation, we will continue to follow. The impression and plan of care has been dictated as directed. Dr. Avalos I performed a history and examination of this patient, discussed the same with the dictator. I agree with the dictator's note ,documented as a scribe. Any ad ditional findings or plans will be noted.
--- NOTE | 2024-10-28 11:45 | P.PN ---
Subjective Progress Note Date: 10/28/24 Patient seen and examined at bedside. No acute events overnight. Vital signs reviewed General: Nontoxic, no distress, appears at stated age Cardiovascular: S1S2 reg, no murmur Lungs: CTA bilateral, no rhonchi, no rales, no accessory muscle use Abdominal: Soft, nontender to palpation, no guarding Ext: Left lower extremity TMA with wound VAC in place Neuro: CN II-XI grossly intact, no focal neuro deficits Psych: Alert, oriented, appropriate affect Imaging: Venous Doppler showing no evidence of DVT Data Review: CBC remarkable for hemoglobin of 8.1. Basic metabolic profile remarkable for glucose 63 Assessment/Plan: 74-year-old with diabetes, HTN, HLD, and previous DVT admitted with wound dehiscence from recent transmetatarsal amputation due to osteomyelitis and remy teremia. #. Left transmetatarsal wound dehiscence status post transmetatarsal amputation s/p debridement #. Peripheral artery disease #. Plantar surface wound Status post debridement of left foot TMA and plantar surface wound with wound VAC in place Continue with cefepime day 2, and continue on Flagyl IV piggyback day #4 Wound cultures with Enterobacter Continue aspirin 81 mg PO QD and cilostazol 500 mg PO BID Failed [place] 10/325, continue Percocet 7.5 Q6 as needed pain Vascular surgery stated a plan for left lower extremity femoropopliteal bypass with in situ vein on 10/31/2024 Infectious disease following #. Severe iron deficiency anemia Start ferric gluconate 125 mg discontinued Follow CBC #. Imj-daemxmg-cuslaielv type 2 diabetes mellitus Sliding scale insulin with Accu-Cheks Monitor for hypoglycemia Continue Lantus SQ 10 unit last night and Humalog 3 unit AC TID Metformin, glipizide, sitagliptin, Jardiance on hold #. History of DVT not currently on anticoagulation Due to significant increasing pain with cramping in the back of the calf we will repeat venous duplex ultrasound #. Anemia of chronic disease #. Thrombocytosis, resolved No signs of acute bleeding, continue to monitor CBC Chronic: #Hypertension: Hold losartan 50 mg daily #Hyperlipidemia: Continue with Crestor 40 mg PO QD #BPH: Continue with Flomax 0.4 mg PO QD #Chronic tobacco use: recommended smoking cessation #Neuropathy: Continue with gabapentin increased to 500 mg PO TID DVT prophylaxis: Heparin subcu Anticipated discharge date: Pending clinical course Anticipated discharge place: [facility] This dictation was prepared using [employer] voice recognition software. Though every attempt is made to correct errors during dictation some may still exist. I have seen and evaluated the patient today. Discussed with the resident and agree with the residents finding and plan as documented in the resident's note. Changes highlighted in blue font. Objective - Vital Signs Vital signs: Vital Signs Temp 98.9 F 10/28/24 06:47 Pulse 96 10/28/24 06:47 Resp 16 10/28/24 06:47 BP 129/66 10/28/24 06:47 Pulse Ox 95 10/28/24 06:47 FiO2 Intake & Output 10/27/24 10/28/24 10/28/24 18:59 06:59 18:59 Intake Total 350 Balance 350 Intake: Intake, IV Titration 350 Amount Cefepime 2 gm In Dextrose 100 5% in Water 100 ml @ 25 mls/hr IVPB Q8HR [facility] Rx#: [id number] Sodium Ferric Gluconat- 100 Sucrose 125 mg In Sodium Chloride 0.9% 100 ml @ 100 mls/hr IVPB DAILY [facility] Rx#:[id number] ceFAZolin 2 gm In 50 Dextrose 5% in Water 50 ml @ 100 mls/hr IVPB Q8H [facility] Rx#:[id number] metroNIDAZOLE-NS PMX 500 100 mg In Saline 1 100ml.bag @ 100 mls/hr IVPB Q8HR [facility] Rx#:[id number] Other: # Voids 4 - Labs CBC & Chem 7: 10/28/24 02:16 10/28/24 02:16 Labs: Abnormal Lab Results - Last 24 Hours (Table) 10/27/24 10/27/24 10/27/24 Range/Units 12:09 16:46 20:25 POC Glucose (mg/dL) 222 H 351 H 223 H (70-110) mg/dL Microbiology - Last 24 Hours (Table) 10/25/24 14:55 Gram Stain - Preliminary Foot - Left Wound Culture - Preliminary Enterobacter cloacae Complex
[2024-10-28 12:02] LABS: Glucose,Whole Blood 243 mg/dL (70-110)
[2024-10-28] MEDS ORDERED: CAFFEINE CITRATE 60 MG/3 ML VIAL IV PRN (14:34)
[2024-10-28] MEDS ORDERED: AMINOPHYLLINE 500 MG/20 ML VIAL IV PRN (14:34)
[2024-10-28] MEDS: metroNIDAZOLE 500 MG TAB PO SCH (16:22)
[2024-10-28 16:59] LABS: Glucose,Whole Blood 264 mg/dL (70-110)
[2024-10-28 20:22] LABS: Glucose,Whole Blood 275 mg/dL (70-110)
[2024-10-29 04:24] LABS: Basophils # (A) 0.05 10*3/uL (0.00-0.10); Eosinophils # (A) 0.16 10*3/uL (0.04-0.35); Eosinophils % (A) 3.1 %; HCT 26.5 % (39.6-50.0); HGB 8.5 g/dL (13.0-17.0); Lymphocytes # (A) 0.91 10*3/uL (0.90-5.00); Lymphocytes % (A) 17.4 %; MCH 29.9 pg (27.0-32.0); MCHC 32.1 g/dL (32.0-37.0); MCV 93.3 fL (80.0-97.0); Mean Platelet Volume 9.1 fL (9.5-12.2); Monocytes # (A) 0.62 10*3/uL (0.20-1.00); Monocytes % (A) 11.8 %; Neutrophils # (A) 3.45 10*3/uL (1.80-7.70); Neutrophils % (A) 65.7 %; Platelet Count 355 10*3/uL (140-440); RBC 2.84 10*6/uL (4.40-5.60); RDW 17.5 % (11.5-14.5); WBC 5.24 10*3/uL (4.50-10.00)
[2024-10-29 04:47] LABS: African American GFR (CKD) >90 (>60 ml/min/1.73 sqM); Anion Gap 6 mmol/L; Blood Urea Nitrogen 12 mg/dL (9-20); Calcium 8.8 mg/dL (8.4-10.2); Carbon Dioxide 27 mmol/L (22-30); Chloride 101 mmol/L (98-107); Glucose 82 mg/dL (74-99); Magnesium 1.7 mg/dL (1.6-2.3); Non-African American GFR(CKD) 89 (>60 ml/min/1.73 sqM); Potassium 4.2 mmol/L (3.5-5.1); Sodium 134 mmol/L (137-145)
[2024-10-29] MEDS ORDERED: REGADENOSON 0.4 MG/5 ML SYRINGE IV PRN (05:00)
[2024-10-29 06:04] LABS: Glucose,Whole Blood 110 mg/dL (70-110)
--- NOTE | 2024-10-29 08:36 | P.PN ---
Subjective Progress Note Date: 10/28/24 Principal diagnosis: Reason for follow-up is left diabetic foot wound/infection Patient is a 74-year-old male with a past medical history significant for diabetes mellitus hypertension hyperlipidemia reflux PAD in this patient who was recently admitted at this facility and did have a gangrenous toe in this patient also have MSSA bacteremia patient did have left lower extremity angiogram with arthrectomy of the left SFA with balloon dilatation and also transmetatarsal amputation now being readmitted to hospital with dehiscence of the wound status post debridement and deep culture which are currently pending. On today's evaluation that is 10/28/2024, Patient is afebrile this morning patient denies having any chest pain shortness of breath or cough, the patient is currently on room air, patient denies any abdominal pain no diarrhea no nausea no vomiting, pain to the left foot is currently controlled. Patient white count is 5.70, creatinine 0.8 cultures with Enterobacter Objective - Vital Signs Vital signs: Vital Signs Temp 98.9 F 10/28/24 06:47 Pulse 96 10/28/24 06:47 Resp 16 10/28/24 06:47 BP 129/66 10/28/24 06:47 Pulse Ox 95 10/28/24 06:47 FiO2 Intake & Output 10/27/24 10/28/24 10/28/24 18:59 06:59 18:59 Intake Total 350 Balance 350 Intake: Intake, IV Titration 350 Amount Cefepime 2 gm In Dextrose 100 5% in Water 100 ml @ 25 mls/hr IVPB Q8HR [facility] Rx#: [id number] Sodium Ferric Gluconat- 100 Sucrose 125 mg In Sodium Chloride 0.9% 100 ml @ 100 mls/hr IVPB DAILY [facility] Rx#:[id number] ceFAZolin 2 gm In 50 Dextrose 5% in Water 50 ml @ 100 mls/hr IVPB Q8H [facility] Rx#:[id number] metroNIDAZOLE-NS PMX 500 100 mg In Saline 1 100ml.bag @ 100 mls/hr IVPB Q8HR [facility] Rx#:[id number] Other: # Voids 4 - Exam GENERAL DESCRIPTION: An elderly male lying in bed in no distress RESPIRATORY SYSTEM: Unlabored breathing , decreased breath sounds at bases HEART: S1 S2 regular rate and rhythm , ABDOMEN: Soft , no tenderness EXTREMITIES: Left foot wound is currently covered with a wound VAC - Labs CBC & Chem 7: 10/29/24 03:26 10/29/24 03:26 Labs: Abnormal Lab Results - Last 24 Hours (Table) 10/27/24 10/27/24 10/28/24 Range/Units 16:46 20:25 02:16 RBC 2.67 L (4.40-5.60) X 10*6/uL Hgb 8.1 L (13.0-17.0) g/dL Hct 25.5 L (39.6-50.0) % MCHC 31.8 L (32.0-37.0) g/dL RDW 18.3 H (11.5-14.5) % MPV 9.2 L (9.5-12.2) FL Glucose (70-110) mg/dL POC Glucose (mg/dL) 351 H 223 H (70-110) mg/dL Calcium (8.7-10.3) mg/dL 10/28/24 10/28/24 Range/Units 02:16 12:00 RBC (4.40-5.60) X 10*6/uL Hgb (13.0-17.0) g/dL Hct (39.6-50.0) % MCHC (32.0-37.0) g/dL RDW (11.5-14.5) % MPV (9.5-12.2) FL Glucose 63 L (70-110) mg/dL POC Glucose (mg/dL) 243 H (70-110) mg/dL Calcium 8.2 L (8.7-10.3) mg/dL Microbiology - Last 24 Hours (Table) 10/25/24 14:55 Gram Stain - Final Foot - Left Wound Culture - Final Enterobacter cloacae Complex Assessment and Plan (1) Wound of left foot Current Visit: Yes Status: Acute Code(s): S91.302A - UNSPECIFIED OPEN WOUND, LEFT FOOT, INITIAL ENCOUNTER SNOMED Code(s): 46038205667563043 (2) Diabetic foot infection Current Visit: Yes Status: Acute Code(s): E11.628 - TYPE 2 DIABETES MELLITUS WITH OTHER SKIN COMPLICATIONS; L08.9 - LOCAL INFECTION OF THE SKIN AND SUBCUTANEOUS TISSUE, UNSP SNOMED Code(s): 827782610 Plan: 1patient was recently admitted to the hospital with left foot necrotic toe in this patient was status post left transmetatarsal amputation as well as arthrectomy of the left SFA and balloon dilatation now being readmitted to hospital with dehiscence of his left transmetatarsal amputation site wound in this patient was status post debridement of the wound and deep culture with operative report mentioning wound extending down to the tendon did not mention any bony involvement 2--local wound care with wound VAC will evaluate the wound with the next wound VAC change 3patient cultures currently growing Enterobacter, antibiotic has been adjusted to cefepime and Flagyl currently waiting for vascular evaluation on Dictation was produced using [employer] dictation software. please excuse any grammatical, word or spelling errors. Time with Patient: Less than 30
--- NOTE | 2024-10-29 09:25 | P.PN ---
Subjective Progress Note Date: 10/29/24 Principal diagnosis: Left foot gangrene Patient seen and evaluated. Doing well states that the wound VAC is working. Denies any fevers, chills, chest pain or shortness of breath. Objective - Vital Signs Vital signs: Vital Signs Temp 98.4 F 10/29/24 06:43 Pulse 89 10/29/24 06:43 Resp 16 10/29/24 06:43 BP 131/64 10/29/24 06:43 Pulse Ox 97 10/29/24 06:43 FiO2 Intake & Output 10/28/24 10/29/24 10/29/24 18:59 06:59 18:59 Output Total 750 1300 700 Balance -750 -1300 -700 Output: Urine 750 1300 700 Other: Voiding Method Urinal - Exam Left foot TMA wound with wound VAC in place. Nonpalpable DP or PT pulse - Labs CBC & Chem 7: 10/29/24 03:26 10/29/24 03:26 Labs: Abnormal Lab Results - Last 24 Hours (Table) 10/28/24 10/28/24 10/28/24 Range/Units 12:00 16:58 20:21 RBC (4.40-5.60) 10*6/uL Hgb (13.0-17.0) g/dL Hct (39.6-50.0) % RDW (11.5-14.5) % MPV (9.5-12.2) fL Immature Gran # (0.00-0.04) 10*3/uL Sodium (137-145) mmol/L POC Glucose (mg/dL) 243 H 264 H 275 H (70-110) mg/dL 10/29/24 10/29/24 Range/Units 03:26 03:26 RBC 2.84 L (4.40-5.60) 10*6/uL Hgb 8.5 L (13.0-17.0) g/dL Hct 26.5 L (39.6-50.0) % RDW 17.5 H (11.5-14.5) % MPV 9.1 L (9.5-12.2) fL Immature Gran # 0.05 H (0.00-0.04) 10*3/uL Sodium 134 L (137-145) mmol/L POC Glucose (mg/dL) (70-110) mg/dL Microbiology - Last 24 Hours (Table) 10/25/24 14:55 Anaerobic Culture - Preliminary Foot - Left 10/25/24 14:55 Gram Stain - Final Foot - Left Wound Culture - Final Enterobacter cloacae Complex Assessment and Plan Assessment: Left TMA wound status post excisional debridement and wound VAC application Peripheral arterial disease Diabetes mellitus Chronic tobacco abuse History of previous gangrenous toes status post amputation History of left lower extremity DVT Plan: Continue wound VAC. Patient tentatively scheduled for bypass left lower extremity femoral-popliteal in situ with Dr. Mendoza on Continue current treatment and antibiotics
--- NOTE | 2024-10-29 11:00 | P.PN ---
Subjective Progress Note Date: 10/29/24 Patient seen and examined at bedside. No acute events overnight. Vital signs reviewed General: Nontoxic, no distress, appears at stated age Cardiovascular: S1S2 reg, no murmur Lungs: CTA bilateral, no rhonchi, no rales, no accessory muscle use Abdominal: Soft, nontender to palpation, no guarding Ext: Left lower extremity TMA with wound VAC in place Neuro: CN II-XI grossly intact, no focal neuro deficits Psych: Alert, oriented, appropriate affect Imaging: N/A Data Review: CBC remarkable for hemoglobin of 8.5. Basic metabolic profile unremarkable Assessment/Plan: 74-year-old with diabetes, HTN, HLD, and previous DVT admitted with wound dehiscence from recent transmetatarsal amputation due to osteomyelitis and bacteremia. #. Left transmetatarsal wound dehiscence status post transmetatarsal amputation s/p debridement #. Peripheral artery disease #. Plantar surface wound Status post debridement of left foot TMA and plantar surface wound with wound VAC in place Continue with cefepime day 2, and continue on Flagyl IV piggyback day #4 Wound cultures with Enterobacter Continue aspirin 81 mg PO QD and cilostazol 500 mg PO BID Failed Jen[place] 10/325, continue Percocet 7.5 Q6 as needed pain Vascular surgery stated a plan for left lower extremity femoropopliteal bypass with in situ vein on 10/31/2024 Infectious disease following Cardiology consulted for cardiac clearance, nuclear stress test planned for tomorrow, keep n.p.o. after midnight #. Severe iron deficiency anemia Start ferric gluconate 125 mg discontinued Hgb 8.1 => 8.5 Resume ferrous sulfate 325 mg p.o. daily and asorbic acid Follow CBC #. Rpl-tzfomzg-owzsaital type 2 diabetes mellitus Sliding scale insulin with Accu-Cheks Monitor for hypoglycemia Continue Lantus SQ 10 unit last night and Humalog 3 unit AC TID Metformin, glipizide, sitagliptin, Jardiance on hold #. History of DVT not currently on anticoagulation Due to significant increasing pain with cramping in the back of the calf we will repeat venous duplex ultrasound Venous Doppler showing no evidence of DVT #. Anemia of chronic disease #. Thrombocytosis, resolved No signs of acute bleeding, continue to monitor CBC Chronic: #Hypertension: Hold losartan 50 mg daily #Hyperlipidemia: Continue with Crestor 40 mg PO QD #BPH: Continue with Flomax 0.4 mg PO QD #Chronic tobacco use: recommended smoking cessation #Neuropathy: Continue with gabapentin increased to 500 mg PO TID DVT prophylaxis: Heparin subcu Anticipated discharge date: Pending clinical course Anticipated discharge place: [facility] This dictation was prepared using [employer] voice recognition software. Though every attempt is made to correct errors during dictation some may still exist. I have seen and evaluated the patient today. Discussed with the resident and agree with the residents finding and plan as documented in the resident's note. Changes highlighted in blue font. Objective - Vital Signs Vital signs: Vital Signs Temp 98.4 F 10/29/24 01:44 Pulse 86 10/29/24 01:44 Resp 18 10/29/24 01:44 BP 125/65 10/29/24 01:44 Pulse Ox 95 10/29/24 01:44 FiO2 Intake & Output 10/28/24 10/29/24 10/29/24 18:59 06:59 18:59 Output Total 750 1300 Balance -750 -1300 Output: Urine 750 1300 Other: Voiding Method Urinal - Labs CBC & Chem 7: 10/29/24 03:26 10/29/24 03:26 Labs: Abnormal Lab Results - Last 24 Hours (Table) 10/28/24 10/28/24 10/28/24 Range/Units 02:16 02:16 12:00 RBC 2.67 L (4.40-5.60) X 10*6/uL Hgb 8.1 L (13.0-17.0) g/dL Hct 25.5 L (39.6-50.0) % MCHC 31.8 L (32.0-37.0) g/dL RDW 18.3 H (11.5-14.5) % MPV 9.2 L (9.5-12.2) FL Immature Gran # (0.00-0.04) 10*3/uL Sodium (137-145) mmol/L Glucose 63 L (70-110) mg/dL POC Glucose (mg/dL) 243 H (70-110) mg/dL Calcium 8.2 L (8.7-10.3) mg/dL 10/28/24 10/28/24 10/29/24 Range/Units 16:58 20:21 03:26 RBC 2.84 L (4.40-5.60) X 10*6/uL Hgb 8.5 L (13.0-17.0) g/dL Hct 26.5 L (39.6-50.0) % MCHC (32.0-37.0) g/dL RDW 17.5 H (11.5-14.5) % MPV 9.1 L (9.5-12.2) FL Immature Gran # 0.05 H (0.00-0.04) 10*3/uL Sodium (137-145) mmol/L Glucose (70-110) mg/dL POC Glucose (mg/dL) 264 H 275 H (70-110) mg/dL Calcium (8.7-10.3) mg/dL 10/29/24 Range/Units 03:26 RBC (4.40-5.60) X 10*6/uL Hgb (13.0-17.0) g/dL Hct (39.6-50.0) % MCHC (32.0-37.0) g/dL RDW (11.5-14.5) % MPV (9.5-12.2) FL Immature Gran # (0.00-0.04) 10*3/uL Sodium 134 L (137-145) mmol/L Glucose (70-110) mg/dL POC Glucose (mg/dL) (70-110) mg/dL Calcium (8.7-10.3) mg/dL Microbiology - Last 24 Hours (Table) 10/25/24 14:55 Anaerobic Culture - Preliminary Foot - Left 10/25/24 14:55 Gram Stain - Final Foot - Left Wound Culture - Final Enterobacter cloacae Complex
[2024-10-29 11:48] LABS: Glucose,Whole Blood 322 mg/dL (70-110)
--- NOTE | 2024-10-29 14:40 | P.CRDCN ---
History of Present Illness Consult date: 10/29/24 History of present illness: This is a 74-year-old male with no previous cardiac history and does not follow with a access service representative. He has a past medical history of peripheral artery disease, recent wound infection status post transmetatarsal amputation and left lower extremity angiogram with atherectomy of the left SFA with balloon dilation. Also history of diabetes, DVT, hypertension, hyperlipidemia. We have been asked to evaluate the patient for cardiac clearance for left femoropopliteal bypass scheduled for 10/31. [facility] [place] and his leg [facility] hurting really bad. It had been progressively worsening over the past month and he was sent directly from the [facility] by ambulance to [facility] [place]. He denies chest pain, chest pressure or tightness. Patient has not had previous cardiac workup denies a history of stress test. -EKG:none -Venous Doppler study: No ultrasound evidence of DVT. -Laboratory studies: WBC 5.6, hemoglobin 8.6. Sodium 133, potassium 4.5, BUN 16 and creatinine 0.73. A1c obtained on 10/04 was 8.6. -Home cardiac medications: Aspirin 81 mg daily, losartan 50 mg daily, rosuvastatin 40 mg daily, also on Jardiance. -Echocardiogram performed on 10/10/2024 revealed difficult study, normal LV systolic function, poorly visualized intracardiac valves, trace pericardial effusion. Review Of Systems: At the time of my exam: CONSTITUTIONAL: Denies fever or chills. Reports left lower extremity pain HEENT: Denies blurred vision, vision changes, or eye pain. Denies hemoptysis CARDIOVASCULAR: Denies chest pain. Denies orthopnea. Denies PND. Denies palpitations RESPIRATORY: Denies shortness of breath. GASTROINTESTINAL: Denies abdominal pain. Denies nausea or vomiting. HEMATOLOGIC: Denies bleeding disorders. GENITOURINARY: Denies any blood in urine. SKIN: Denies puritis. Denies rash. Physical examination: Gen: This is 74-year-old male patient in no acute distress. VS: reviewed HEENT: Head is atraumatic, normocephalic. Pupils equal, round. Sclerae is anicteric. NECK: Supple. No JVD. LUNGS: Clear to auscultation. No wheezes or rhonchi. No intercostal retractions. HEART: Regular rate and rhythm. No murmur. ABDOMEN: Soft No tenderness. EXTREMITIES: No pedal edema. No calf tenderness. NEUROLOGICAL: Patient is awake, alert and oriented x3. 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 this morning as was ordered N.p.o. after midnight Further recommendations to follow based upon clinical course Thank you kindly for this consultation. Nurse practitioner note has been reviewed, I agree with documented findings and plan of care. Patient was seen and examined. Past Medical History Past Medical History: Diabetes Mellitus, Deep Vein Thrombosis (DVT), Eye Disorder, GERD/Reflux, Hyperlipidemia, Hypertension, Prostate Disorder Additional Past Medical History / Comment(s): L foot osteomylitis, DJD, DVT R leg, R eye macular degeneration, BPH, benign colon polyps. History of Any Multi-Drug Resistant Organisms: MRSA Date of last positivie culture/infection: 06/19/21 MDRO Source:: MRSA TOE Past Surgical History: Orthopedic Surgery, Tonsillectomy Additional Past Surgical History / Comment(s): L great toe amputation, L 2nd toe "bones disconnected", colonoscopy with polypectomy, bilateral cataract removals, 3rd/4th/5th digit on left foor removed Past Anesthesia/Blood Transfusion Reactions: No Reported Reaction Past Psychological History: No Psychological Hx Reported Smoking Status: Current every day smoker Past Alcohol Use History: None Reported Past Drug Use History: None Reported - Past Family History Father History Unknown: Yes Family Medical History: No Reported History Mother Family Medical History: No Reported History Additional Family Medical History / Comment(s): Mother was healthy Medications and Allergies Home Medications Medication Instructions Recorded Confirmed Type metFORMIN HCL [Glucophage] 1,000 mg PO BID 12/23/16 10/24/24 History Aspirin [Adult Low Dose Aspirin EC] 81 mg PO DAILY 11/01/17 10/24/24 History Cholecalciferol [Vitamin D3 (25 50 mcg PO DAILY 06/17/21 10/24/24 History Mcg = 1000 Iu)] Losartan [Cozaar] 50 mg PO DAILY 06/17/21 10/24/24 History Rosuvastatin Calcium [Crestor] 40 mg PO DAILY 06/17/21 10/24/24 History Empagliflozin [Jardiance] 25 mg PO DAILY 10/03/24 10/24/24 History Podofilox 1 applic TOPICAL DAILY 10/03/24 10/24/24 History SITagliptin [Sitagliptin] 100 mg PO DAILY 10/03/24 10/24/24 History glipiZIDE [Glucotrol] 10 mg PO AC-BID 10/03/24 10/24/24 History Gabapentin [Neurontin] 300 mg PO TID 30 Days #90 cap 10/08/24 10/24/24 Rx cilostazoL [Pletal] 100 mg PO BID #60 tab 10/08/24 10/24/24 Rx Ascorbic Acid [Vitamin C] 1,000 mg PO DAILY #30 tablet 10/15/24 10/24/24 Rx Ferrous Sulfate [Iron (65 MG 325 mg PO DAILY #30 tab 10/15/24 10/24/24 Rx Elemental)] Folic Acid 1 mg PO DAILY #30 tab 10/15/24 10/24/24 Rx Tamsulosin HCl [Flomax] 0.8 mg PO HS #30 cap 10/15/24 10/24/24 Rx ceFAZolin [Kefzol] 2 gm IVP Q8HR #30 each 10/15/24 10/24/24 Rx metroNIDAZOLE [Flagyl] 500 mg PO Q8HR 10 Days #30 tab 10/15/24 10/24/24 Rx Multivitamins, Thera [Multivitamin 1 tab PO DAILY 10/17/24 10/24/24 History (formulary)] Allergies Allergy/AdvReac Type Severity Reaction Status Date / Time sulfamethoxazole Allergy Severe joint Verified 10/25/24 12:01 [From Bactrim] pain, aches ciprofloxacin [From Cipro] Allergy joint Verified 10/25/24 12:01 pain, aches lisinopril Allergy joint Verified 10/25/24 12:01 pain, cough trimethoprim [From Bactrim] Allergy joint Verified 10/25/24 12:01 pain, aches NABIL Inhibitors AdvReac Cough Verified 10/25/24 12:01 Physical Exam Vitals: Vital Signs Temp Pulse Resp BP Pulse Ox 10/29/24 06:43 98.4 F 89 16 131/64 97 04/29/25 01:44 98.4 F 86 18 125/65 95 10/28/24 19:22 98.4 F 89 18 146/61 95 Intake and Output 10/28/24 10/29/24 10/29/24 22:59 06:59 14:59 Output Total 750 1300 700 Balance -750 -1300 -700 Output: Urine 750 1300 700 Other: Voiding Method Urinal Results 10/30/24 02:52 10/30/24 02:52 CBC 10/29/24 Range/Units 03:26 WBC 5.24 (4.50-10.00) 10*3/uL RBC 2.84 L (4.40-5.60) 10*6/uL Hgb 8.5 L (13.0-17.0) g/dL Hct 26.5 L (39.6-50.0) % Plt Count 355 (140-440) 10*3/uL Comprehensive Metabolic Panel 10/29/24 Range/Units 03:26 Sodium 134 L (137-145) mmol/L Potassium 4.2 (3.5-5.1) mmol/L Chloride 101 (98-107) mmol/L Carbon Dioxide 27 (22-30) mmol/L BUN 12 (9-20) mg/dL Creatinine 0.76 (0.66-1.25) mg/dL Glucose 82 (74-99) mg/dL Calcium 8.8 (8.4-10.2) mg/dL Current Medications Generic Name Dose Route Start Last Admin Trade Name Freq PRN Reason Stop Dose Admin Ascorbic Acid 1,000 mg 10/30/24 09:00 Ascorbic Acid 500 Mg Tab PO DAILY RUTH Aspirin 81 mg 10/25/24 09:00 10/29/24 08:46 Aspirin 81 Mg PO 81 mg DAILY RUTH Administration Atorvastatin Calcium 80 mg 10/25/24 09:00 10/29/24 08:45 Atorvastatin 80 Mg Tab PO 80 mg DAILY RUTH Administration Cilostazol 100 mg 10/24/24 21:00 10/29/24 08:46 Cilostazol 100 Mg Tab PO 100 mg BID RUTH Administration Ferrous Sulfate 325 mg 10/30/24 09:00 Ferrous Sulfate 325 Mg Tab PO DAILY RUTH Gabapentin 400 mg 10/26/24 16:00 10/29/24 08:45 Gabapentin 400 Mg Cap PO 400 mg TID RUTH Administration Gabapentin 100 mg 10/26/24 16:00 10/29/24 08:45 Gabapentin 100 Mg Cap PO 100 mg TID RUTH Administration Heparin Sodium (Porcine) 5,000 unit 10/25/24 16:00 10/29/24 08:45 Heparin Sodium,Porcine 5,000 Unit/Ml 1 Ml Vial SQ 5,000 unit Q8HR URTH Administration Cefepime HCl 2 gm/ Dextrose/ 100 mls @ 25 mls/hr 10/27/24 16:15 10/29/24 08:46 Water IVPB 25 mls/hr Q8HR RUTH Administration Protocol Insulin Glargine 10 unit 10/26/24 21:00 10/28/24 20:29 Insulin Glargine (Lantus) 100 Unit/Ml Syr SQ 10 unit HS RUTH Administration Insulin Human Lispro 0 unit 10/24/24 17:30 10/29/24 11:55 Insulin Lispro (Humalog) 100 Unit/Ml 10 Ml Vl SQ 8 unit ACHS RUTH Administration Protocol Insulin Human Lispro 3 unit 10/26/24 07:30 10/29/24 11:56 Insulin Lispro (Humalog) 100 Unit/Ml 10 Ml Vl SQ 3 unit AC-TID RUTH Administration Metronidazole 500 mg 10/28/24 16:00 10/29/24 08:46 Metronidazole 500 Mg Tab PO 500 mg Q8HR RUTH Administration Morphine Sulfate 4 mg 10/24/24 12:30 10/29/24 11:38 Morphine Sulfate 4 Mg/Ml Syringe IV 4 mg Q4HR PRN Administration Severe Pain (Scale 7 to 10) Naloxone HCl 0.2 mg 10/24/24 12:30 Naloxone 0.4 Mg/Ml 1 Ml Vial IV Q2M PRN Opioid Reversal Oxycodone/Acetaminophen 1 each 10/27/24 14:57 10/29/24 08:45 Oxycodone-Apap 7.5-325mg 1 Each Tab PO 1 each Q4HR PRN Administration Pain Regadenoson 0.4 mg 10/29/24 05:00 Regadenoson 0.4 Mg/5 Ml Syringe IV 10/29/24 23:59 ONCE PRN Per Protocol Tamsulosin HCl 0.8 mg 10/24/24 21:00 10/28/24 20:28 Tamsulosin 0.4 Mg Cap.Er.24h PO 0.8 mg HS RUTH Administration Intake and Output 10/28/24 10/29/24 10/29/24 22:59 06:59 14:59 Output Total 750 1300 700 Balance -750 -1300 -700 Output: Urine 750 1300 700 Other: Voiding Method Urinal 10/29/24 03:26 10/29/24 03:26
--- NOTE | 2024-10-29 15:34 | P.PN ---
Subjective Progress Note Date: 10/29/24 Principal diagnosis: Reason for follow-up is left diabetic foot wound/infection Patient is a 74-year-old male with a past medical history significant for diabetes mellitus hypertension hyperlipidemia reflux PAD in this patient who was recently admitted at this facility and did have a gangrenous toe in this patient also have MSSA bacteremia patient did have left lower extremity angiogram with arthrectomy of the left SFA with balloon dilatation and also transmetatarsal amputation now being readmitted to hospital with dehiscence of the wound status post debridement and deep culture which are currently pending. On today's evaluation that is 10/29/2024,the patient denies any fever or any chills, patient is breathing comfortably on room air, the patient denies chest pain shortness of breath and no significant cough, patient denies abdominal pain, no nausea vomiting or diarrhea. Pain to the left foot is currently controlled. Patient white count is 5.24, creatinine 0.76 Objective - Vital Signs Vital signs: Vital Signs Temp 98.4 F 10/29/24 06:43 Pulse 89 10/29/24 06:43 Resp 16 10/29/24 06:43 BP 131/64 10/29/24 06:43 Pulse Ox 97 10/29/24 06:43 FiO2 Intake & Output 10/28/24 10/29/24 10/29/24 18:59 06:59 18:59 Output Total 750 1300 700 Balance -750 -1300 -700 Output: Urine 750 1300 700 Other: Voiding Method Urinal - Exam GENERAL DESCRIPTION: An elderly male lying in bed in no distress RESPIRATORY SYSTEM: Unlabored breathing , decreased breath sounds at bases HEART: S1 S2 regular rate and rhythm , ABDOMEN: Soft , no tenderness EXTREMITIES: Left foot wound is currently covered with a wound VAC - Labs CBC & Chem 7: 10/29/24 03:26 10/29/24 03:26 Labs: Abnormal Lab Results - Last 24 Hours (Table) 10/28/24 10/28/24 10/29/24 Range/Units 16:58 20:21 03:26 RBC 2.84 L (4.40-5.60) 10*6/uL Hgb 8.5 L (13.0-17.0) g/dL Hct 26.5 L (39.6-50.0) % RDW 17.5 H (11.5-14.5) % MPV 9.1 L (9.5-12.2) fL Immature Gran # 0.05 H (0.00-0.04) 10*3/uL Sodium (137-145) mmol/L POC Glucose (mg/dL) 264 H 275 H (70-110) mg/dL 10/29/24 10/29/24 Range/Units 03:26 11:47 RBC (4.40-5.60) 10*6/uL Hgb (13.0-17.0) g/dL Hct (39.6-50.0) % RDW (11.5-14.5) % MPV (9.5-12.2) fL Immature Gran # (0.00-0.04) 10*3/uL Sodium 134 L (137-145) mmol/L POC Glucose (mg/dL) 322 H (70-110) mg/dL Microbiology - Last 24 Hours (Table) 10/25/24 14:55 Anaerobic Culture - Preliminary Foot - Left 10/25/24 14:55 Gram Stain - Final Foot - Left Wound Culture - Final Enterobacter cloacae Complex Assessment and Plan (1) Wound of left foot Current Visit: Yes Status: Acute Code(s): S91.302A - UNSPECIFIED OPEN WOUND, LEFT FOOT, INITIAL ENCOUNTER SNOMED Code(s): 04837861559762802 (2) Diabetic foot infection Current Visit: Yes Status: Acute Code(s): E11.628 - TYPE 2 DIABETES MELLITUS WITH OTHER SKIN COMPLICATIONS; L08.9 - LOCAL INFECTION OF THE SKIN AND SUBCUTANEOUS TISSUE, UNSP SNOMED Code(s): 395203794 Plan: 1patient was recently admitted to the hospital with left foot necrotic toe in this patient was status post left transmetatarsal amputation as well as arthrectomy of the left SFA and balloon dilatation now being readmitted to hospital with dehiscence of his left transmetatarsal amputation site wound in this patient was status post debridement of the wound and deep culture with operative report mentioning wound extending down to the tendon did not mention any bony involvement 2--local wound care with wound VAC will evaluate the wound with the next wound VAC change 3patient cultures currently growing Enterobacter, for the patient is currently covered with cefepime will reevaluate the wound tomorrow at the time of wound VAC change to plan for discharge antibiotics Dictation was produced using [employer] dictation software. please excuse any grammatical, word or spelling errors. Time with Patient: Less than 30
[2024-10-29 17:12] LABS: Glucose,Whole Blood 237 mg/dL (70-110)
[2024-10-29 20:41] LABS: Glucose,Whole Blood 272 mg/dL (70-110)
[2024-10-30 04:17] LABS: Basophils # (A) 0.05 10*3/uL (0.00-0.10); Basophils % (A) 0.9 %; Eosinophils % (A) 3.5 %; HCT 26.3 % (39.6-50.0); HGB 8.6 g/dL (13.0-17.0); Lymphocytes # (A) 1.14 10*3/uL (0.90-5.00); Lymphocytes % (A) 20.2 %; MCH 30.5 pg (27.0-32.0); MCHC 32.7 g/dL (32.0-37.0); MCV 93.3 fL (80.0-97.0); Mean Platelet Volume 9.1 fL (9.5-12.2); Monocytes # (A) 0.69 10*3/uL (0.20-1.00); Monocytes % (A) 12.2 %; Neutrophils % (A) 62.1 %; Platelet Count 366 10*3/uL (140-440); RBC 2.82 10*6/uL (4.40-5.60); RDW 17.2 % (11.5-14.5); WBC 5.64 10*3/uL (4.50-10.00)
[2024-10-30 04:30] LABS: African American GFR (CKD) >90 (>60 ml/min/1.73 sqM); Anion Gap 7 mmol/L; Blood Urea Nitrogen 16 mg/dL (9-20); Calcium 8.9 mg/dL (8.4-10.2); Carbon Dioxide 29 mmol/L (22-30); Chloride 97 mmol/L (98-107); Glucose 148 mg/dL (74-99); Magnesium 1.8 mg/dL (1.6-2.3); Non-African American GFR(CKD) >90 (>60 ml/min/1.73 sqM); Potassium 4.5 mmol/L (3.5-5.1); Sodium 133 mmol/L (137-145)
[2024-10-30 06:21] LABS: Glucose,Whole Blood 176 mg/dL (70-110)
[2024-10-30] MEDS ORDERED: REGADENOSON 0.4 MG/5 ML SYRINGE IV ONE (08:00)
[2024-10-30] MEDS: ASCORBIC ACID 500 MG TAB PO SCH (10:08)
[2024-10-30] MEDS: FERROUS SULFATE 325 MG TAB PO SCH (10:08)
--- NOTE | 2024-10-30 10:18 | NM ---
EXAMINATION TYPE: NM stress lexiscan cardiolite DATE OF EXAM: 10/30/2024 COMPARISON: NONE CLINICAL INDICATION: Male, 74 years old with history of preop clearance; TECHNIQUE: After the intravenous administration of 10.1 mCi Tc 99m Sestamibi - Cardiolite resting SP ECT images acquired 45 minutes post injection. The patient received 0.4mg Lexiscan, 26.0 mCi Tc 99m Sestamibi - Stress images obtained [address] injection FINDINGS: Review of stress and rest SPECT images demonstrates large fixed defect involving the inferior wall wi th focal areas of reversibility. Gated analysis shows hypokinetic wall motion with an estimated left ventricular ejection fraction of 67 %. IMPRESSION: large fixed defect involving the inferior wall with focal areas of reversibility. [facility], , 10/30/2024 10:15 AM
--- NOTE | 2024-10-30 10:19 | P.PN ---
Subjective Progress Note Date: 10/30/24 Patient seen and examined at bedside. No acute events overnight. Vital signs reviewed General: Nontoxic, no distress, appears at stated age Cardiovascular: S1S2 reg, no murmur Lungs: CTA bilateral, no rhonchi, no rales, no accessory muscle use Abdominal: Soft, nontender to palpation, no guarding Ext: Left lower extremity TMA with wound VAC in place Neuro: CN II-XI grossly intact, no focal neuro deficits Psych: Alert, oriented, appropriate affect Imaging: N/A Data Review: CBC remarkable for hemoglobin of 8.6. Basic metabolic profile unremarkable Assessment/Plan: 74-year-old with diabetes, HTN, HLD, and previous DVT admitted with wound dehiscence from recent transmetatarsal amputation due to osteomyelitis and bacteremia. #. Left transmetatarsal wound dehiscence status post transmetatarsal amputation s/p debridement #. Peripheral artery disease #. Plantar surface wound Status post debridement of left foot TMA and plantar surface wound with wound VAC in place Continue with cefepime day 2, and continue on Flagyl IV piggyback day #4 Wound cultures with Enterobacter Continue aspirin 81 mg PO QD and cilostazol 500 mg PO BID Failed [place] 10/325, continue Percocet 7.5 Q6 as needed pain Vascular surgery stated a plan for left lower extremity femoropopliteal bypass with in situ vein on 10/31/2024 Infectious disease following Cardiology consulted for cardiac clearance, nuclear stress test planned for today #. Severe iron deficiency anemia Start ferric gluconate 125 mg discontinued Hgb 8.1 => 8.6 Continue ferrous sulfate 325 mg p.o. daily and asorbic acid Follow CBC #. Ymd-pxxsxgo-nsfnmialy type 2 diabetes mellitus Sliding scale insulin with Accu-Cheks Monitor for hypoglycemia Continue Lantus SQ 10 unit last night and Humalog 3 unit AC TID Metformin, glipizide, sitagliptin, Jardiance on hold #. History of DVT not currently on anticoagulation Due to significant increasing pain with cramping in the back of the calf we will repeat venous duplex ultrasound Venous Doppler showing no evidence of DVT #. Anemia of chronic disease #. Thrombocytosis, resolved No signs of acute bleeding, continue to monitor CBC Chronic: #Hypertension: Hold losartan 50 mg daily #Hyperlipidemia: Continue with Crestor 40 mg PO QD #BPH: Continue with Flomax 0.4 mg PO QD #Chronic tobacco use: recommended smoking cessation #Neuropathy: Continue with gabapentin increased to 500 mg PO TID DVT prophylaxis: Heparin subcu Anticipated discharge date: Pending clinical course Anticipated discharge place: [facility] This dictation was prepared using [employer] voice recognition software. Though every attempt is made to correct errors during dictation some may still exist. I have seen and evaluated the patient today. Discussed with the resident and agree with the residents finding and plan as documented in the resident's note. Changes highlighted in blue font. Objective - Vital Signs Vital signs: Vital Signs Temp 98.6 F 10/30/24 00:30 Pulse 86 10/30/24 00:30 Resp 16 10/30/24 02:19 BP 138/63 10/30/24 00:30 Pulse Ox 96 10/30/24 00:30 FiO2 Intake & Output 10/29/24 10/29/24 10/30/24 06:59 18:59 06:59 Output Total 1300 2500 1320 Balance -1300 -2500 -1320 Weight 84.822 kg Output: Urine 1300 2500 1320 Other: Voiding Method Urinal Urinal Urinal - Labs CBC & Chem 7: 10/30/24 02:52 10/30/24 02:52 Labs: Abnormal Lab Results - Last 24 Hours (Table) 10/29/24 10/29/24 10/29/24 Range/Units 11:47 17:11 20:40 RBC (4.40-5.60) 10*6/uL Hgb (13.0-17.0) g/dL Hct (39.6-50.0) % RDW (11.5-14.5) % MPV (9.5-12.2) fL Immature Gran # (0.00-0.04) 10*3/uL Sodium (137-145) mmol/L Chloride (98-107) mmol/L Glucose (74-99) mg/dL POC Glucose (mg/dL) 322 H 237 H 272 H (70-110) mg/dL 10/30/24 10/30/24 10/30/24 Range/Units 02:52 02:52 06:17 RBC 2.82 L (4.40-5.60) 10*6/uL Hgb 8.6 L (13.0-17.0) g/dL Hct 26.3 L (39.6-50.0) % RDW 17.2 H (11.5-14.5) % MPV 9.1 L (9.5-12.2) fL Immature Gran # 0.06 H (0.00-0.04) 10*3/uL Sodium 133 L (137-145) mmol/L Chloride 97 L (98-107) mmol/L Glucose 148 H (74-99) mg/dL POC Glucose (mg/dL) 176 H (70-110) mg/dL
[2024-10-30 11:46] LABS: Glucose,Whole Blood 214 mg/dL (70-110)
--- NOTE | 2024-10-30 12:39 | P.PN ---
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 He has a past medical history of peripheral artery disease, recent wound infection status post transmetatarsal amputation and left lower extremity angiogram with atherectomy of the left SFA with balloon dilation. Also history of diabetes, DVT, hypertension, hyperlipidemia. We have been asked to evaluate the patient for cardiac clearance for left femoropopliteal bypass scheduled for 10/31. Patient states that he was at the [facility] in [place] and his leg was hurting really bad. It had been progressively worsening over the past month and he was sent directly from the [facility] by ambulance to [facility] [place]. He denies chest pain, chest pressure or tightness. Patient has not had previous cardiac workup denies a history of stress test. -EKG:none -Venous Doppler study: No ultrasound evidence of DVT. -Laboratory studies: WBC 5.6, hemoglobin 8.6. Sodium 133, potassium 4.5, BUN 16 and creatinine 0.73. A1c obtained on 10/04 was 8.6. -Home cardiac medications: Aspirin 81 mg daily, losartan 50 mg daily, rosuvastatin 40 mg daily, also on Jardiance. -Echocardiogram performed on 10/10/2024 revealed difficult study, normal LV systolic function, poorly visualized intracardiac valves, trace pericardial effusion. 10/30 Patient seen and examined. Today, patient underwent a Lexiscan Cardiolite stress test which revealed a large fixed defect involving the inferior wall and focal areas of reversibility. Dr. Evans has reviewed the films on the stress test and appear to be diaphragmatic attenuation. No reversibility seen. Also reviewed EKG with no ischemic changes. Conclusion of the results of the above testing reviewed with the patient and all questions answered. Patient denies chest pain, chest pressure, tightness. Blood pressure 134/56, heart rate 87, pulse ox 95% on room air. Physical examination: Gen: This is 74-year-old male patient in no acute distress. VS: reviewed HEENT: Head is atraumatic, normocephalic. Pupils equal, round. Sclerae is anicteric. NECK: Supple. No JVD. LUNGS: Clear to auscultation. No wheezes or rhonchi. No intercostal retractions. HEART: Regular rate and rhythm. No murmur. ABDOMEN: Soft No tenderness. EXTREMITIES: No pedal edema. No calf tenderness. NEUROLOGICAL: Patient is awake, alert and oriented x3. 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 Patient is cleared to undergo surgical intervention as planned. No absolute contraindications. Cardiology will sign off this case and follow on an as-needed basis. Please reconsult for any new concerns. Nurse practitioner note has been reviewed, I agree with documented findings and plan of care. Patient was seen and examined. Objective - Vital Signs Vital signs: Vital Signs Temp 98 F 10/30/24 07:11 Pulse 87 10/30/24 07:11 Resp 18 10/30/24 07:11 BP 134/56 10/30/24 07:11 Pulse Ox 95 10/30/24 07:11 FiO2 Intake & Output 10/29/24 10/30/24 10/30/24 18:59 06:59 18:59 Output Total 2500 1820 Balance -2500 -1820 Weight 84.822 kg Output: Urine 2500 1820 Other: Voiding Method Urinal Urinal - Labs CBC & Chem 7: 10/30/24 02:52 10/30/24 02:52 Labs: Abnormal Lab Results - Last 24 Hours (Table) 10/29/24 10/29/24 10/30/24 Range/Units 17:11 20:40 02:52 RBC 2.82 L (4.40-5.60) 10*6/uL Hgb 8.6 L (13.0-17.0) g/dL Hct 26.3 L (39.6-50.0) % RDW 17.2 H (11.5-14.5) % MPV 9.1 L (9.5-12.2) fL Immature Gran # 0.06 H (0.00-0.04) 10*3/uL Sodium (137-145) mmol/L Chloride (98-107) mmol/L Glucose (74-99) mg/dL POC Glucose (mg/dL) 237 H 272 H (70-110) mg/dL 10/30/24 10/30/24 10/30/24 Range/Units 02:52 06:17 11:44 RBC (4.40-5.60) 10*6/uL Hgb (13.0-17.0) g/dL Hct (39.6-50.0) % RDW (11.5-14.5) % MPV (9.5-12.2) fL Immature Gran # (0.00-0.04) 10*3/uL Sodium 133 L (137-145) mmol/L Chloride 97 L (98-107) mmol/L Glucose 148 H (74-99) mg/dL POC Glucose (mg/dL) 176 H 214 H (70-110) mg/dL
--- NOTE | 2024-10-30 16:08 | CA ---
Lexiscan Nuclear Stress Test Report Name: Jon Son Exam Date: 10/30/2024 08:57 Exam Location: [place] Stress Ht (in): 73 Wt (lb): 190 BSA: 2.11 Ordering Phys: Mary Ivan Referring Phys: HARSHAL, Technologist: JESUS,, Age: 74 Gender: M : 1950 Procedure CPT: Indications: Reflex order-Stress test ICD-10 Codes: Patient History: Diabetes, hyperlipidemia and tobacco use. Medications: Meds past 24 hrs: Pretest Chest Pain: STRESS TEST Lexiscan Protocol Exercise Duration (min:sec): 01:[address] Depressions (mm): Angina Score: Honeycutt Score: Resting HR (bpm): 85 Peak HR (bpm): 98 Resting BP (mmHg): 125 / 58 Peak BP (mmHg): 124 / 57 MPHR: 145 Target HR: 123 % MPHR: 68 METS: 1.0 Total Dose: Peak Dose: Atropine: Double Product: 11198 BP Response: Stress Termination: INFUSION COMPLETE Stress Symptoms: NECK PAIN Stress Summary: ECG ANALYSIS Resting ECG: Stress ECG: CONCLUSIONS At baseline EKG showed normal sinus rhythm, normal axis, no significant ST or T wave abnormalities. Patient recieved IV infusion of Lexiscan 0.4mg and at peak infusion EKG showed no significant change from baseline. Conclusions: 1. Normal EKG response to Lexiscan infusion 2. Nuclear imaging to be reported separately. Dr. Pierre Evans DO (Electronically Signed) Final Date: 30 October 2024 16:07
--- NOTE | 2024-10-30 16:20 | P.PN ---
Subjective Progress Note Date: 10/30/24 Patient seen and examined. No complaints. Ready for surgical intervention tomorrow. Questions were answered. Patient has been cleared from a cardiology standpoint Objective - Vital Signs Vital signs: Vital Signs Temp 98.5 F 10/30/24 14:20 Pulse 89 10/30/24 14:20 Resp 18 10/30/24 14:20 BP 133/62 10/30/24 14:20 Pulse Ox 96 10/30/24 14:20 FiO2 Intake & Output 10/29/24 10/30/24 10/30/24 18:59 06:59 18:59 Output Total 2500 1820 Balance -2500 -1820 Weight 84.822 kg Output: Urine 2500 1820 Other: Voiding Method Urinal Urinal - Exam General Is a pleasant cooperative disheveled male in no acute distress. No respiratory distress. Abdomen is soft. Bilateral lower extremities are warm and dry. Wound VAC intact - Labs CBC & Chem 7: 10/30/24 02:52 10/30/24 02:52 Labs: Abnormal Lab Results - Last 24 Hours (Table) 10/29/24 10/29/24 10/30/24 Range/Units 17:11 20:40 02:52 RBC 2.82 L (4.40-5.60) 10*6/uL Hgb 8.6 L (13.0-17.0) g/dL Hct 26.3 L (39.6-50.0) % RDW 17.2 H (11.5-14.5) % MPV 9.1 L (9.5-12.2) fL Immature Gran # 0.06 H (0.00-0.04) 10*3/uL Sodium (137-145) mmol/L Chloride (98-107) mmol/L Glucose (74-99) mg/dL POC Glucose (mg/dL) 237 H 272 H (70-110) mg/dL 10/30/24 10/30/24 10/30/24 Range/Units 02:52 06:17 11:44 RBC (4.40-5.60) 10*6/uL Hgb (13.0-17.0) g/dL Hct (39.6-50.0) % RDW (11.5-14.5) % MPV (9.5-12.2) fL Immature Gran # (0.00-0.04) 10*3/uL Sodium 133 L (137-145) mmol/L Chloride 97 L (98-107) mmol/L Glucose 148 H (74-99) mg/dL POC Glucose (mg/dL) 176 H 214 H (70-110) mg/dL Microbiology - Last 24 Hours (Table) 10/25/24 14:55 Anaerobic Culture - Final Foot - Left Assessment and Plan Assessment: Left TMA wound status post excisional debridement and wound VAC application Peripheral arterial disease Diabetes mellitus Chronic tobacco abuse History of previous gangrenous toes status post amputation History of left lower extremity DVT Plan: Plan to proceed tomorrow with left lower extremity bypass with in situ vein by Dr. Anderson. Continue current treatment and antibiotics as written
[2024-10-30 16:53] LABS: Glucose,Whole Blood 347 mg/dL (70-110)
--- NOTE | 2024-10-30 17:32 | P.PN ---
Subjective Progress Note Date: 10/30/24 Principal diagnosis: Reason for follow-up is left diabetic foot wound/infection Patient is a 74-year-old male with a past medical history significant for diabetes mellitus hypertension hyperlipidemia reflux PAD in this patient who was recently admitted at this facility and did have a gangrenous toe in this patient also have MSSA bacteremia patient did have left lower extremity angiogram with arthrectomy of the left SFA with balloon dilatation and also transmetatarsal amputation now being readmitted to hospital with dehiscence of the wound status post debridement and deep culture which are currently pending. On today's evaluation that is 10/30/2024,the patient remains to be afebrile, patient is on room air not requiring supplemental oxygen and denies any short ness of breath no chest pain or cough.Patient denies having any nausea or vomiting, no abdominal pain and no diarrhea has been reported. Patient white count is 5.64, creatinine 0.73 Objective - Vital Signs Vital signs: Vital Signs Temp 98.5 F 10/30/24 14:20 Pulse 89 10/30/24 14:20 Resp 18 10/30/24 14:20 BP 133/62 10/30/24 14:20 Pulse Ox 96 10/30/24 14:20 FiO2 Intake & Output 10/29/24 10/30/24 10/30/24 18:59 06:59 18:59 Output Total 2500 1820 Balance -2500 -1820 Weight 84.822 kg Output: Urine 2500 1820 Other: Voiding Method Urinal Urinal - Exam GENERAL DESCRIPTION: An elderly male lying in bed in no distress RESPIRATORY SYSTEM: Unlabored breathing , decreased breath sounds at bases HEART: S1 S2 regular rate and rhythm , ABDOMEN: Soft , no tenderness EXTREMITIES: Left foot wound is currently covered with a wound VAC - Labs CBC & Chem 7: 10/30/24 02:52 10/30/24 02:52 Labs: Abnormal Lab Results - Last 24 Hours (Table) 10/29/24 10/30/24 10/30/24 Range/Units 20:40 02:52 02:52 RBC 2.82 L (4.40-5.60) 10*6/uL Hgb 8.6 L (13.0-17.0) g/dL Hct 26.3 L (39.6-50.0) % RDW 17.2 H (11.5-14.5) % MPV 9.1 L (9.5-12.2) fL Immature Gran # 0.06 H (0.00-0.04) 10*3/uL Sodium 133 L (137-145) mmol/L Chloride 97 L (98-107) mmol/L Glucose 148 H (74-99) mg/dL POC Glucose (mg/dL) 272 H (70-110) mg/dL 10/30/24 10/30/24 10/30/24 Range/Units 06:17 11:44 16:50 RBC (4.40-5.60) 10*6/uL Hgb (13.0-17.0) g/dL Hct (39.6-50.0) % RDW (11.5-14.5) % MPV (9.5-12.2) fL Immature Gran # (0.00-0.04) 10*3/uL Sodium (137-145) mmol/L Chloride (98-107) mmol/L Glucose (74-99) mg/dL POC Glucose (mg/dL) 176 H 214 H 347 H (70-110) mg/dL Microbiology - Last 24 Hours (Table) 10/25/24 14:55 Anaerobic Culture - Final Foot - Left Assessment and Plan (1) Wound of left foot Current Visit: Yes Status: Acute Code(s): S91.302A - UNSPECIFIED OPEN WOUND, LEFT FOOT, INITIAL ENCOUNTER SNOMED Code(s): 10949323276720859 (2) Diabetic foot infection Current Visit: Yes Status: Acute Code(s): E11.628 - TYPE 2 DIABETES MELLITUS WITH OTHER SKIN COMPLICATIONS; L08.9 - LOCAL INFECTION OF THE SKIN AND SUBCUTANEOUS TISSUE, UNSP SNOMED Code(s): 668975273 Plan: 1patient was recently admitted to the hospital with left foot necrotic toe in this patient was status post left transmetatarsal amputation as well as arthre ctomy of the left SFA and balloon dilatation now being readmitted to hospital with dehiscence of his left transmetatarsal amputation site wound in this patient was status post debridement of the wound and deep culture with operative report mentioning wound extending down to the tendon did not mention any bony involvement 2--local wound care with wound VAC will evaluate the wound with the next wound VAC change 3patient cultures currently growing Enterobacter, 4patient to with cefepime and monitor clinical course closely Dictation was produced using 360pi dictation software. please excuse any grammatical, word or spelling errors. Time with Patient: Less than 30
[2024-10-30 21:08] LABS: Glucose,Whole Blood 402 mg/dL (70-110)
[2024-10-31 05:06] LABS: Basophils # (A) 0.05 10*3/uL (0.00-0.10); Basophils % (A) 0.7 %; Eosinophils # (A) 0.18 10*3/uL (0.04-0.35); Eosinophils % (A) 2.7 %; HCT 26.1 % (39.6-50.0); HGB 8.5 g/dL (13.0-17.0); Lymphocytes # (A) 1.02 10*3/uL (0.90-5.00); Lymphocytes % (A) 15.3 %; MCH 30.2 pg (27.0-32.0); MCHC 32.6 g/dL (32.0-37.0); MCV 92.9 fL (80.0-97.0); Mean Platelet Volume 8.9 fL (9.5-12.2); Neutrophils # (A) 4.54 10*3/uL (1.80-7.70); Neutrophils % (A) 68.1 %; Platelet Count 342 10*3/uL (140-440); RBC 2.81 10*6/uL (4.40-5.60); RDW 17.3 % (11.5-14.5); WBC 6.67 10*3/uL (4.50-10.00)
[2024-10-31 05:47] LABS: African American GFR (CKD) >90 (>60 ml/min/1.73 sqM); Anion Gap 7 mmol/L; Blood Urea Nitrogen 20 mg/dL (9-20); Calcium 8.8 mg/dL (8.4-10.2); Carbon Dioxide 28 mmol/L (22-30); Chloride 96 mmol/L (98-107); Glucose 139 mg/dL (74-99); Magnesium 1.8 mg/dL (1.6-2.3); Non-African American GFR(CKD) 89 (>60 ml/min/1.73 sqM); Potassium 4.5 mmol/L (3.5-5.1); Sodium 131 mmol/L (137-145)
[2024-10-31 06:55] LABS: Glucose,Whole Blood 149 mg/dL (70-110)
[2024-10-31 11:43] LABS: Glucose,Whole Blood 138 mg/dL (70-110)
[2024-10-31] MEDS: IV FLUID CONTINUATION 1,000 ML IV ONE ×2 (12:00→15:36)
[2024-10-31] MEDS: LACTATED RINGERS 1,000 ML IV ONE ×2 (12:00→17:22)
[2024-10-31 12:07] LABS: Glucose,Whole Blood 136 mg/dL (70-110)
[2024-10-31] MEDS: ONDANSETRON 4 MG/2 ML VIAL IVP STA (12:41)
--- NOTE | 2024-10-31 13:30 | P.PN ---
Subjective Progress Note Date: 10/31/24 Patient seen and examined at bedside. No acute events overnight. States that surgery is scheduled for this afternoon. Vital signs reviewed General: Nontoxic, no distress, appears at stated age Cardiovascular: S1S2 reg, no murmur Lungs: CTA bilateral, no rhonchi, no rales, no accessory muscle use Abdominal: Soft, nontender to palpation, no guarding Ext: Left lower extremity TMA with wound VAC in place Neuro: CN II-XI grossly intact, no focal neuro deficits Psych: Alert, oriented, appropriate affect Data Review: Pertinent labs: CBC remarkable for hemoglobin of 8.5. Basic metabolic profile unremarkable Imaging: Lexiscan stress test displaying large fixed deficit involving the inferior wall with focal areas of reversibility Microbiology: Left foot wound culture displaying Enterobacter cloacae complex Assessment/Plan: 74-year-old with diabetes, HTN, HLD, and previous DVT admitted with wound dehiscence from recent transmetatarsal amputation due to osteomyelitis and bacteremia. #. Left transmetatarsal wound dehiscence status post transmetatarsal amputation s/p debridement #. Peripheral artery disease #. Plantar surface wound Status post debridement of left foot TMA and plantar surface wound with wound VAC in place Continue with cefepime day 2, and continue on Flagyl IV piggyback day #4 Wound cultures with Enterobacter Continue aspirin 81 mg PO QD and cilostazol 500 mg PO BID Failed [place] 10/325, continue Percocet 7.5 Q6 as needed pain Vascular surgery stated a plan for left lower extremity femoropopliteal bypass with in situ vein on 10/31/2024 Infectious disease following Cardiology consulted for cardiac clearance, has been cleared for surgery today this afternoon #. Severe iron deficiency anemia Start ferric gluconate 125 mg discontinued Hgb 8.1 => 8.5 Continue ferrous sulfate 325 mg p.o. daily and asorbic acid Follow CBC #. Atq-[id number] type 2 diabetes mellitus Sliding scale insulin with Accu-Cheks Monitor for hypoglycemia Continue Lantus SQ 10 unit last night and Humalog 3 unit AC TID Metformin, glipizide, sitagliptin, Jardiance on hold #. History of DVT not currently on anticoagulation Due to significant increasing pain with cramping in the back of the calf we will repeat venous duplex ultrasound Venous Doppler showing no evidence of DVT #. Anemia of chronic disease #. Thrombocytosis, resolved No signs of acute bleeding, continue to monitor CBC Chronic: #Hypertension: Hold losartan 50 mg daily #Hyperlipidemia: Continue with Crestor 40 mg PO QD #BPH: Continue with Flomax 0.4 mg PO QD #Chronic tobacco use: recommended smoking cessation #Neuropathy: Continue with gabapentin increased to 500 mg PO TID DVT prophylaxis: Heparin subcu Anticipated discharge date: Pending clinical course Anticipated discharge place: [facility] This dictation was prepared using [employer] voice recognition software. Though every attempt is made to correct errors during dictation some may still e xist. I have seen and evaluated the patient today. Discussed with the resident and agree with the residents finding and plan as documented in the resident's note. Changes highlighted in blue font. Objective - Vital Signs Vital signs: Vital Signs Temp 98 F 10/31/24 02:00 Pulse 94 10/31/24 02:00 Resp 18 10/31/24 04:10 BP 144/65 10/31/24 02:00 Pulse Ox 96 10/31/24 02:00 FiO2 Intake & Output 10/30/24 10/31/24 10/31/24 18:59 06:59 18:59 Output Total 1225 800 Balance -1225 -800 Output: Urine 1225 800 Other: Voiding Method Urinal # Voids 2 - Labs CBC & Chem 7: 10/31/24 04:22 10/31/24 04:22 Labs: Abnormal Lab Results - Last 24 Hours (Table) 10/30/24 10/30/24 10/30/24 Range/Units 11:44 16:50 21:06 RBC (4.40-5.60) 10*6/uL Hgb (13.0-17.0) g/dL Hct (39.6-50.0) % RDW (11.5-14.5) % MPV (9.5-12.2) fL Immature Gran # (0.00-0.04) 10*3/uL Sodium (137-145) mmol/L Chloride (98-107) mmol/L Glucose (74-99) mg/dL POC Glucose (mg/dL) 214 H 347 H 402 H (70-110) mg/dL 10/31/24 10/31/24 10/31/24 Range/Units 04:22 04:22 06:53 RBC 2.81 L (4.40-5.60) 10*6/uL Hgb 8.5 L (13.0-17.0) g/dL Hct 26.1 L (39.6-50.0) % RDW 17.3 H (11.5-14.5) % MPV 8.9 L (9.5-12.2) fL Immature Gran # 0.08 H (0.00-0.04) 10*3/uL Sodium 131 L (137-145) mmol/L Chloride 96 L (98-107) mmol/L Glucose 139 H (74-99) mg/dL POC Glucose (mg/dL) 149 H (70-110) mg/dL Microbiology - Last 24 Hours (Table) 10/25/24 14:55 Anaerobic Culture - Final Foot - Left
[2024-10-31] MEDS ORDERED: PHENYLEPHRINE 10 MG/ML VIAL ONE (13:54)
[2024-10-31] MEDS ORDERED: WATER FOR INJECTION, STERILE 10 ML VIAL IV ONE (13:54)
[2024-10-31] MEDS ORDERED: ROCURONIUM 10 MG/ML (5 ML VIAL) IV ONE (13:54)
[2024-10-31] MEDS ORDERED: ePHEDrine 50 MG/ML 1 ML VIAL ONE (13:54)
[2024-10-31] MEDS ORDERED: MIDAZOLAM 2 MG/2 ML VIAL ONE (13:54)
[2024-10-31] MEDS ORDERED: HEPARIN SODIUM,PORCINE 10,000 UNIT/ML 1 ML VIAL ONE (13:54)
[2024-10-31] MEDS ORDERED: PROPOFOL 10 MG/ML 20 ML VIAL IV ONE (13:54)
[2024-10-31] MEDS ORDERED: NEOSTIGMINE 1 MG/ML 10 ML VIAL ONE (13:54)
[2024-10-31] MEDS ORDERED: LIDOCAINE 1% INJ 10MG/ML (20 ML MDV) ONE (13:54)
[2024-10-31] MEDS ORDERED: GLYCOPYRROLATE 0.2 MG/ML 2 ML VIAL ONE (13:54)
[2024-10-31] MEDS ORDERED: SUCCINYLCHOLINE CHLORIDE 200 MG/10 ML VIAL IV ONE (13:54)
[2024-10-31] MEDS ORDERED: fentaNYL (PF) 50 MCG/ML 2 ML AMP ONE (13:54)
[2024-10-31] MEDS ORDERED: HEPARIN SODIUM,PORCINE 5,000 UNIT/ML 1 ML VIAL ONE (13:54)
[2024-10-31] MEDS: ceFAZolin 4 GM in SODIUM CHLORIDE 0.9% 1,000 ML IRRIGATION ONE (13:59)
[2024-10-31] MEDS: HEPARIN SODIUM,PORCINE 10,000 UNIT in SODIUM CHLORIDE 0.9% 1,000 ML IRRIGATION ONE (13:59)
[2024-10-31] MEDS: THROMBIN (BOVINE) 5,000 UNIT VIAL TOPICAL ONE (15:09)
[2024-10-31] MEDS: SODIUM CHLORIDE 0.9% 1,000 ML BAG IRRIGATION ONE ×2 (15:09→15:10)
--- NOTE | 2024-10-31 17:18 | P.ANPRN ---
Procedure Note - Anesthesia - Invasive Line Left Arterial Line Time Out Performed: Yes (1223) Date of Procedure: 10/31/24 Time of Procedure: 12:24 Location of Patient: PreOp Preparation: Sterile Prep, Sterile Dressing Arterial Line Location: Radial (left) Ultrasound Used: No Purpose - Visualization and Identification of Vasculature: No Needle Guage: 20g Image Stored and Saved: No Narrative: Invasive line placement per sterile protocol utilized. sterile protocol. let radial art in 1 attempt. bled and secured. dressed.
[2024-10-31 17:56] LABS: Glucose,Whole Blood 279 mg/dL (70-110)
--- NOTE | 2024-10-31 18:05 | P.OP ---
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 2. Status post transmetatarsal amputation of the left foot with open wound. Postoperative Diagnosis: Same. Procedure(s) Performed: 1: Left common femoral thromboendarterectomy. 2: Left femoral to popliteal bypass utilizing 8 mm PTFE conduit. 3: Debridement left transmetatarsal amputation open wound and placement of a greater than 50 cm negative pressure wound VAC therapy. Anesthesia: GETA Surgeon: Dagoberto Alicea Estimated Blood Loss (ml): 150 Pathology: none sent Condition: stable Disposition: no change Indications for Procedure: Patient is a 74-year-old male with a longstanding history of diabetes mellitus and peripheral vascular disease. He had presented with a wet gangrene of the left foot and required completion transmetatarsal amputation. The wound would not fully heal in spite of atherectomy to improve the inflow. It was felt the patient would benefit by common femoral thromboendarterectomy and femoral- popliteal bypass graft. The procedure, risk and benefits were discussed. All questions were answered patient's satisfaction. Description of Procedure: Patient was brought the op room placed in spine position administered general endotracheal anesthesia administered by the department of anesthesiology. Avalos catheter was placed to gravity drainage. Patient's ongoing IV antibiotic therapy was continued. The patient's left lower extremity as well as the left lower pelvic and lower abdominal areas were sterilely prepped and draped in usual manner. Skin incision was made overlying the left common femoral artery and carried down through the subcutaneous tissues. Significant lymphatic hypertrophy was identified. Lymphatic layer was divided laterally and swept medially exposing the femoral sheath. This was incised and the common femoral artery was identified. The common femoral artery was dissected free of investing tissues up to the level inguinal ligament. In the very proximal one half of the artery it was heavily involved with calcific plaquing and poor pulsatile quality. It was necessary to partially transect the inguinal ligament to gain access to the distal external iliac artery which was soft and pliable. Vessel loop was placed about the artery at this level. Dissection was carried distally down to the bifurcation of the common femoral into the profundus and superficial femoral segments. Vesseloops were placed around these segments as well as additional side branches. Attention was turned to the vein with initial thought of in situ vein bypass graft. The great saphenous vein as it approached the femoral vein was dissected free of investing tissues and side branches were ligated with 6-0 silk suture and then transected. Antibiotic soaked gauze was placed within the groin. Attention was turned to the popliteal area where a skin incision was made along the medial aspect carried down through subcutaneous tissues. Care was taken to avoid the great saphenous vein. The incision was deepened through the subcutaneous tissues. Hemostasis was achieved using electrocautery. The incision was deepened into the popliteal space. The popliteal artery was bharati ntified dissected free of both the popliteal vein and the nerve and encircled with Vesseloops. The artery was relatively soft to palpation. No pulsatile flow was identified. The great saphenous vein at this level was dissected free of investing tissues and did not appear to be of adequate quality for bypass conduit and it was decided to use a PTFE bypass conduit. An 8 mm PTFE graft was selected and tunneled in a subsartorial way between the 2 incisions. The patient was systemically heparinized and the profundus and superficial femoral and origin of the common femoral artery Vesseloops were drawn closed. Linear arteriotomy was made in the common femoral artery and extended to the very distal external iliac segment. The plaque was extremely calcified however endarterectomy was performed from the distal external iliac artery down to the level of the profundus and origin of the superficial femoral artery. Retraction endarterectomy was performed on the profundus segment and good backbleeding was then obtained. The remaining luminal surface was inspected for any loose or free-floating material and this was removed. The plaque at the origin of the superficial femoral artery was tacked open. The proximal two thirds of the endarterectomized segment of the femoral artery was closed primarily with 5-0 Prolene suture placed in a running fashion. The PTFE graft was then spatulated to match this the open segment of the arteriotomy and end-to-side anastomosis was completed with 5-0 Prolene suture. Just prior to completion of the anastomotic line the superficial femoral and profundus were backbled and the common femoral artery was then flushed and no thrombus was retrieved. The anastomotic line was completed. Flow was then restored through the common femoral artery. Bleeding was identified at 2 spots along the anastomotic line and 1 area required the assistance of a pledget to help control hemostasis. The other area was controlled with 6-0 Prolene suture. Flow was then restored into the profundus and superficial femoral arteries and into the graft which had been occluded. 1 point of anastomotic line bleed was identified along the PTFE graft and this was controlled with Prolene suture. Attention was turned to the popliteal artery which is then occluded by the Vesseloops being drawn closed. Linear arteriotomy was made and extended with Jimenez Metzenbaums scissors. Backbleeding for bleeding was identified. The graft was spatulated to match the arteriotomy after having being cut to the appropriate length. End-to-side anastomosis was completed with 5-0 Prolene suture placed in running fashion. Just prior to completion anastomotic line the graft was flushed and no thrombus was retrieved and all air was also flushed. Backbleeding demonstrated no thrombus in the anastomotic line was completed. Flow was then restored through the graft into the [place] popliteal vessels. Excellent palpable pulse was identified in the popliteal artery distal to the anastomotic line. Excellent Doppler signal was obtained with hand-held continuous-wave Doppler. Both wounds were inspected for hemostasis and this was judged to be adequate. Both wounds were then irrigated with antibiotic-containing solution. Deep tissues were closed in multiple layers on both incisions and skin edges reapproximated skin jin. Prevena was placed over the left femoral artery wound and appropriate dressing was placed at the popliteal space. Attention was turned to the transmetatarsal amputation wound. This measured 9 x 13 cm in length and width and 4 to 5 mm in depth down to the level of the tendons and bones. Necrotic tissue was debrided sharply with a surgical scalpel. Wound VAC was then placed with good seal being obtained. Patient tolerated the procedure well and was taken to recovery area satisfactory in stable condition.
[2024-10-31] MEDS: HYDROmorphone 0.5 MG/0.5 ML SYRINGE IVP PRN (18:29)
[2024-10-31] MEDS: METOPROLOL TARTRATE 5 MG/5 ML VIAL IVP STA (19:51)
[2024-10-31 20:18] LABS: Glucose,Whole Blood 292 mg/dL (70-110)
[2024-10-31] MEDS: DEXAMETHASONE SOD PHOSPHATE 4 MG/ML 1 ML VIAL IVP STA (20:21)
[2024-10-31] MEDS: ONDANSETRON 4 MG/2 ML VIAL IVP ONE (20:23)
[2024-10-31] MEDS: LACTATED RINGERS 1,000 ML IV SCH (20:23)
[2024-10-31] MEDS: DEXAMETHASONE SOD PHOSPHATE 4 MG/ML 1 ML VIAL IV ONE (20:23)
[2024-11-01 06:13] LABS: Glucose,Whole Blood 250 mg/dL (70-110)
[2024-11-01 06:44] LABS: Basophils # (A) 0.03 10*3/uL (0.00-0.10); Basophils % (A) 0.4 %; Eosinophils # (A) 0.01 10*3/uL (0.04-0.35); Eosinophils % (A) 0.1 %; HCT 23.5 % (39.6-50.0); HGB 7.7 g/dL (13.0-17.0); Lymphocytes # (A) 0.96 10*3/uL (0.90-5.00); Lymphocytes % (A) 11.3 %; MCH 30.7 pg (27.0-32.0); MCHC 32.8 g/dL (32.0-37.0); MCV 93.6 fL (80.0-97.0); Monocytes # (A) 0.97 10*3/uL (0.20-1.00); Monocytes % (A) 11.5 %; Neutrophils # (A) 6.39 10*3/uL (1.80-7.70); Neutrophils % (A) 75.5 %; Platelet Count 326 10*3/uL (140-440); RBC 2.51 10*6/uL (4.40-5.60); RDW 17.2 % (11.5-14.5); WBC 8.46 10*3/uL (4.50-10.00)
[2024-11-01 07:08] LABS: African American GFR (CKD) >90 (>60 ml/min/1.73 sqM); Anion Gap 6 mmol/L; Blood Urea Nitrogen 20 mg/dL (9-20); Calcium 8.3 mg/dL (8.4-10.2); Carbon Dioxide 26 mmol/L (22-30); Chloride 100 mmol/L (98-107); Glucose 216 mg/dL (74-99); Magnesium 1.8 mg/dL (1.6-2.3); Non-African American GFR(CKD) >90 (>60 ml/min/1.73 sqM); Potassium 4.3 mmol/L (3.5-5.1); Sodium 132 mmol/L (137-145)
--- NOTE | 2024-11-01 10:28 | P.PN ---
Subjective Progress Note Date: 11/01/24 Principal diagnosis: Reason for follow-up is left diabetic foot wound/infection Patient is a 74-year-old male with a past medical history significant for diabetes mellitus hypertension hyperlipidemia reflux PAD in this patient who was recently admitted at this facility and did have a gangrenous toe in this patient also have MSSA bacteremia patient did have left lower extremity angiogram with arthrectomy of the left SFA with balloon dilatation and also transmetatarsal amputation now being readmitted to hospital with dehiscence of the wound status post debridement and deep culture which are currently pending.Patient is status post Left common femoral thromboendarterectomy. Left femoral to popliteal bypass utilizing 8 mm PTFE conduit. and Debridement left transmetatarsal amputation open wound and placement of a greater than 50 cm negative pressure wound VAC therapy completed on 10/31/2024. On today's evaluation that is 11/01/2024, Patient is afebrile patient is currently on room air and denies having any shortness of breath, the patient denies any chest pain or cough, the patient denies any nausea vomiting did not have any abdominal pain and no diarrhea, patient mention improvement in his throbbing pain to the left leg. Patient white count is 8.46, creatinine 0.67 culture has been Enterobacter and blood culture negative Objective - Vital Signs Vital signs: Vital Signs Temp 97.7 F 11/01/24 07:41 Pulse 97 11/01/24 07:41 Resp 18 11/01/24 07:41 BP 130/63 11/01/24 07:41 Pulse Ox 98 11/01/24 07:41 FiO2 Intake & Output 10/31/24 11/01/24 11/01/24 18:59 06:59 18:59 Intake Total 1902 250 Output Total 925 750 Balance 977 -750 250 Weight 84.5 kg Intake: IV 1902 10 Invasive Line 2 5 Invasive Line 3 5 Oral 240 Output: Urine 775 750 Estimated Blood Loss 150 Other: Voiding Method Urinal Indwelling Catheter - Exam GENERAL DESCRIPTION: An elderly male lying in bed in no distress RESPIRATORY SYSTEM: Unlabored breathing , decreased breath sounds at bases HEART: S1 S2 regular rate and rhythm , ABDOMEN: Soft , no tenderness EXTREMITIES: Left foot wound is currently covered with a wound VAC - Labs CBC & Chem 7: 11/01/24 06:22 11/01/24 06:22 Labs: Abnormal Lab Results - Last 24 Hours (Table) 10/31/24 10/31/24 10/31/24 Range/Units 11:41 11:59 17:55 RBC (4.40-5.60) 10*6/uL Hgb (13.0-17.0) g/dL Hct (39.6-50.0) % MPV (9.5-12.2) fL Immature Gran # (0.00-0.04) 10*3/uL Eosinophils # (0.04-0.35) 10*3/uL Sodium (137-145) mmol/L Glucose (74-99) mg/dL POC Glucose (mg/dL) 138 H 136 H 279 H (70-110) mg/dL Calcium (8.4-10.2) mg/dL 10/31/24 11/01/24 11/01/24 Range/Units 20:14 06:12 06:22 RBC 2.51 L (4.40-5.60) 10*6/uL Hgb 7.7 L (13.0-17.0) g/dL Hct 23.5 L (39.6-50.0) % MPV 9.0 L (9.5-12.2) fL Immature Gran # 0.10 H (0.00-0.04) 10*3/uL Eosinophils # 0.01 L (0.04-0.35) 10*3/uL Sodium (137-145) mmol/L Glucose (74-99) mg/dL POC Glucose (mg/dL) 292 H 250 H (70-110) mg/dL Calcium (8.4-10.2) mg/dL 11/01/24 Range/Units 06:22 RBC (4.40-5.60) 10*6/uL Hgb (13.0-17.0) g/dL Hct (39.6-50.0) % MPV (9.5-12.2) fL Immature Gran # (0.00-0.04) 10*3/uL Eosinophils # (0.04-0.35) 10*3/uL Sodium 132 L (137-145) mmol/L Glucose 216 H (74-99) mg/dL POC Glucose (mg/dL) (70-110) mg/dL Calcium 8.3 L (8.4-10.2) mg/dL Assessment and Plan (1) Wound of left foot Current Visit: Yes Status: Acute Code(s): S91.302A - UNSPECIFIED OPEN WOUND, LEFT FOOT, INITIAL ENCOUNTER SNOMED Code(s): 74028444926687966 (2) Diabetic foot infection Current Visit: Yes Status: Acute Code(s): E11.628 - TYPE 2 DIABETES MELLITUS WITH OTHER SKIN COMPLICATIONS; L08.9 - LOCAL INFECTION OF THE SKIN AND SUBCUTANEOUS TISSUE, UNSP SNOMED Code(s): 053867238 Plan: 1patient was recently admitted to the hospital with left foot necrotic toe in this patient was status post left transmetatarsal amputation as well as ar threctomy of the left SFA and balloon dilatation now being readmitted to hospital with dehiscence of his left transmetatarsal amputation site wound in this patient was status post debridement of the wound and deep culture with operative report mentioning wound extending down to the tendon did not mention any bony involvement 2--local wound care with wound VAC will evaluate the wound with the next wound VAC change 3patient cultures currently growing Enterobacter, 4patient did have evidence of osteomyelitis clinically as he is bones is exposed we will recommend placement of a PICC line and total of 6-day course of IV cefepime this was discussed with the resident physician Dictation was produced using [employer] dictation software. please excuse any grammatical, word or spelling errors. Time with Patient: Less than 30
[2024-11-01 11:20] LABS: Glucose,Whole Blood 235 mg/dL (70-110)
[2024-11-01 11:31] VITALS: BMI 24.5
--- NOTE | 2024-11-01 12:03 | P.PN ---
Subjective Progress Note Date: 11/01/24 Patient seen and examined at bedside. No acute events overnight. States that surgery is scheduled for this afternoon. Vital signs reviewed General: Nontoxic, no distress, appears at stated age Cardiovascular: S1S2 reg, no murmur Lungs: CTA bilateral, no rhonchi, no rales, no accessory muscle use Abdominal: Soft, nontender to palpation, no guarding Ext: Left lower extremity TMA with wound VAC in place Neuro: CN II-XI grossly intact, no focal neuro deficits Psych: Alert, oriented, appropriate affect Data Review: Pertinent labs: CBC showing decreased Hgb from 8.5 => 7.7, glucose 216, BUN 20, creatinine 0.67, sodium 132 Imaging: N/A Assessment/Plan: 74-year-old with diabetes, HTN, HLD, and previous DVT admitted with wound dehiscence from recent transmetatarsal amputation due to osteomyelitis and bacteremia. #. Status post left common femoral thromboendarterectomy with left femoral to popliteal bypass and left TMA debridement #. Left transmetatarsal wound dehiscence status post transmetatarsal amputation s/p debridement #. Peripheral artery disease #. Plantar surface wound Status post debridement of left foot TMA and plantar surface wound with wound VAC in place Continue with cefepime 2 g every 8 hours Wound cultures showing Enterobacter Continue aspirin 81 mg PO QD and cilostazol 500 mg PO BID Failed [place] 10/325, continue Percocet 7.5 Q6 as needed pain Avalos catheter has been removed and will attempt voiding trial today Discussed with infectious disease, will need to be on IV cefepime for 6 weeks and will need a PICC line #. Acute blood loss anemia #. Severe iron deficiency anemia Hgb 8.1 => 8.5 => 7.7 Likely in setting of recent surgery Continue ferrous sulfate 325 mg p.o. daily and asorbic acid Follow CBC #. Yhj-ttxjzgg-ggtpixuhj type 2 diabetes mellitus #. Hyperglycemia Patient with elevated fasting blood glucose at 216, status post Decadron from procedure yesterday, will continue to monitor Sliding scale insulin with Accu-Cheks Monitor for hypoglycemia Continue Lantus SQ 10 unit last night and Humalog 3 unit AC TID Metformin, glipizide, sitagliptin, Jardiance on hold #. History of DVT not currently on anticoagulation Due to significant increasing pain with cramping in the back of the calf we will repeat venous duplex ultrasound Venous Doppler showing no evidence of DVT Chronic: #Hypertension: Hold losartan 50 mg daily #Hyperlipidemia: Continue with Crestor 40 mg PO QD #BPH: Continue with Flomax 0.4 mg PO QD #Chronic tobacco use: recommended smoking cessation #Neuropathy: Continue with gabapentin increased to 500 mg PO TID Resolved: Thrombocytosis DVT prophylaxis: Heparin subcu Anticipated discharge date: Pending clinical course Anticipated discharge place: [facility] This dictation was prepared using [employer] voice recognition software. Though every attempt is made to correct errors during dictation some may still exist. Nando Cabello MD PGY-1 IM I have seen and evaluated the patient today. Discussed with the resident and agree with the residents finding and plan as documented in the resident's note. Changes highlighted in blue font. Objective - Vital Signs Vital signs: Vital Signs Temp 98.3 F 11/01/24 04:00 Pulse 91 11/01/24 04:00 Resp 16 11/01/24 04:00 BP 120/62 11/01/24 04:00 Pulse Ox 98 11/01/24 04:00 FiO2 Intake & Output 10/31/24 10/31/24 11/01/24 06:59 18:59 06:59 Intake Total 1902 Output Total 800 925 750 Balance -800 977 -750 Weight 84.5 kg Intake: IV 1902 Output: Urine 800 775 750 Estimated Blood Loss 150 Other: Voiding Method Urinal Urinal Indwelling Catheter # Voids 2 - Labs CBC & Chem 7: 11/01/24 06:22 11/01/24 06:22 Labs: Abnormal Lab Results - Last 24 Hours (Table) 10/31/24 10/31/24 10/31/24 Range/Units 11:41 11:59 17:55 RBC (4.40-5.60) 10*6/uL Hgb (13.0-17.0) g/dL Hct (39.6-50.0) % MPV (9.5-12.2) fL Immature Gran # (0.00-0.04) 10*3/uL Eosinophils # (0.04-0.35) 10*3/uL POC Glucose (mg/dL) 138 H 136 H 279 H (70-110) mg/dL 10/31/24 11/01/24 11/01/24 Range/Units 20:14 06:12 06:22 RBC 2.51 L (4.40-5.60) 10*6/uL Hgb 7.7 L (13.0-17.0) g/dL Hct 23.5 L (39.6-50.0) % MPV 9.0 L (9.5-12.2) fL Immature Gran # 0.10 H (0.00-0.04) 10*3/uL Eosinophils # 0.01 L (0.04-0.35) 10*3/uL POC Glucose (mg/dL) 292 H 250 H (70-110) mg/dL
[2024-11-01 14:27] LABS: Prothrombin Time 10.6 sec (10.0-12.5)
[2024-11-01 16:29] LABS: Glucose,Whole Blood 301 mg/dL (70-110)
[2024-11-01 20:13] LABS: Glucose,Whole Blood 324 mg/dL (70-110)
[2024-11-02 05:49] LABS: Glucose,Whole Blood 292 mg/dL (70-110)
[2024-11-02 08:04] LABS: Basophils # (A) 0.06 10*3/uL (0.00-0.10); Basophils % (A) 0.8 %; Eosinophils # (A) 0.11 10*3/uL (0.04-0.35); Eosinophils % (A) 1.5 %; HCT 23.6 % (39.6-50.0); HGB 7.6 g/dL (13.0-17.0); Lymphocytes # (A) 1.15 10*3/uL (0.90-5.00); MCH 30.5 pg (27.0-32.0); MCHC 32.2 g/dL (32.0-37.0); MCV 94.8 fL (80.0-97.0); Mean Platelet Volume 9.2 fL (9.5-12.2); Monocytes # (A) 0.98 10*3/uL (0.20-1.00); Monocytes % (A) 13.6 %; Neutrophils # (A) 4.82 10*3/uL (1.80-7.70); Neutrophils % (A) 66.9 %; Platelet Count 312 10*3/uL (140-440); RBC 2.49 10*6/uL (4.40-5.60); RDW 17.5 % (11.5-14.5); WBC 7.21 10*3/uL (4.50-10.00)
[2024-11-02 08:15] LABS: African American GFR (CKD) >90 (>60 ml/min/1.73 sqM); Anion Gap 6 mmol/L; Blood Urea Nitrogen 21 mg/dL (9-20); Calcium 8.2 mg/dL (8.4-10.2); Carbon Dioxide 27 mmol/L (22-30); Chloride 99 mmol/L (98-107); Glucose 208 mg/dL (74-99); Magnesium 1.7 mg/dL (1.6-2.3); Non-African American GFR(CKD) 87 (>60 ml/min/1.73 sqM); Potassium 4.3 mmol/L (3.5-5.1); Sodium 132 mmol/L (137-145)
[2024-11-02 11:16] LABS: Glucose,Whole Blood 282 mg/dL (70-110)
[2024-11-02] MEDS: TAMSULOSIN 0.4 MG CAP.ER.24H PO STA (11:16)
--- NOTE | 2024-11-02 11:59 | P.PN ---
Subjective Progress Note Date: 11/02/24 Patient seen and examined at bedside. No acute events overnight. Vital signs reviewed General: Nontoxic, no distress, appears at stated age, PICC line in place Cardiovascular: S1S2 reg, no murmur Lungs: CTA bilateral, no rhonchi, no rales, no accessory muscle use Abdominal: Soft, nontender to palpation, no guarding Ext: Left lower extremity TMA with wound VAC in place Neuro: CN II-XI grossly intact, no focal neuro deficits Psych: Alert, oriented, appropriate affect Data Review: Pertinent labs: Hgb 7.6, MCV 94.8, sodium 132, BUN 21, creatinine 0.81 Imaging: N/A Assessment/Plan: 74-year-old with diabetes, HTN, HLD, and previous DVT admitted with wound dehiscence from recent transmetatarsal amputation due to osteomyelitis and bacteremia. #. Status post left common femoral thromboendarterectomy with left femoral to popliteal bypass and left TMA debridement #. Left transmetatarsal wound dehiscence status post transmetatarsal amputation s/p debridement #. Peripheral artery disease #. Plantar surface wound Status post debridement of left foot TMA and plantar surface wound w/ wound VAC in place Continue with cefepime 2 g every 8 hours for 6 weeks, PICC line in place Wound cultures showing Enterobacter Continue aspirin 81 mg PO QD and cilostazol 500 mg PO BID Failed [place] 10/325, continue Percocet 7.5 Q6 as needed pain Patient has been voiding since being off Avalos catheter Infectious disease following, pending recs #. Acute blood loss anemia #. Severe iron deficiency anemia Hgb 7.6 today Likely in setting of recent surgery Continue ferrous sulfate 325 mg PO QD along with asorbic acid Follow CBC #. Qcg-eubwybt-bomkogqpx type 2 diabetes mellitus #. Hyperglycemia, improving Patient with elevated fasting blood glucose at 216, s/p Decadron from procedure yesterday, will continue to monitor Sliding scale insulin with Accu-Cheks Monitor for hypoglycemia Continue Lantus SQ 10 unit last night and Humalog 3 unit AC TID Metformin, glipizide, sitagliptin, Jardiance on hold #. History of DVT not currently on anticoagulation Due to significant increasing pain with cramping in the back of the calf we will repeat venous duplex ultrasound Venous Doppler showing no evidence of DVT Chronic: #Hypertension: Hold losartan 50 mg daily #Hyperlipidemia: Continue with Crestor 40 mg PO QD #BPH: Continue with Flomax 0.4 mg PO QD #Chronic tobacco use: recommended smoking cessation #Neuropathy: Continue with gabapentin increased to 500 mg PO TID Resolved: Thrombocytosis DVT prophylaxis: Heparin subcu Anticipated discharge date: Pending clinical course Anticipated discharge place: [facility] This dictation was prepared using [employer] voice recognition software. Though every attempt is made to correct errors during dictation some may still exist. I saw and evaluated the patient during the [place] and critical portions of this encounter, and discussed the case in detail with the resident author of this note, I agree with the Assessment and Plan, and my changes, if any, are highlighted in blue. Objective - Vital Signs Vital signs: Vital Signs Temp 98.4 F 11/02/24 04:00 Pulse 102 H 11/02/24 04:00 Resp 17 11/02/24 04:00 BP 136/55 11/02/24 04:00 Pulse Ox 93 L 11/02/24 04:00 FiO2 Intake & Output 11/01/24 11/01/24 11/02/24 06:59 18:59 06:59 Intake Total 610 240 Output Total 423 709 7749 Balance -750 310 -760 Weight 84.5 kg 84.5 kg 85 kg Intake: IV 10 Invasive Line 2 5 Invasive Line 3 5 Oral 600 240 Output: Urine 018 419 7767 Other: Voiding Method Indwelling Catheter Urinal # Voids 2 - Labs CBC & Chem 7: 11/02/24 07:12 11/02/24 07:12 Labs: Abnormal Lab Results - Last 24 Hours (Table) 11/01/24 11/01/24 11/01/24 Range/Units 06:22 11:18 16:27 Sodium 132 L (137-145) mmol/L Glucose 216 H (74-99) mg/dL POC Glucose (mg/dL) 235 H 301 H (70-110) mg/dL Calcium 8.3 L (8.4-10.2) mg/dL 11/01/24 11/02/24 Range/Units 20:10 05:47 Sodium (137-145) mmol/L Glucose (74-99) mg/dL POC Glucose (mg/dL) 324 H 292 H (70-110) mg/dL Calcium (8.4-10.2) mg/dL
--- NOTE | 2024-11-02 12:05 | P.PN ---
Subjective Progress Note Date: 11/01/24 Patient seen and examined. No complaints. Left calf pain is markedly improved. Some incisional site pain as expected. Wound VAC in place, changed yesterday during OR, plan to change Monday Doing well no complaints, left lower extremity with adequate capillary refill. Sites appear clean and dry. No significant swelling Severe peripheral arterial disease with previous TMA nonhealing wound, recent left femoral to below-knee bypass with in situ vein Doing well overall, continue to increase activity as tolerated, heel touch weightbearing. Discharge planning. Continue aspirin and Plavix Objective - Vital Signs Vital signs: Vital Signs Temp 98.0 F 11/02/24 11:18 Pulse 98 11/02/24 11:18 Resp 16 11/02/24 11:18 BP 125/55 11/02/24 11:18 Pulse Ox 97 11/02/24 11:18 FiO2 Intake & Output 11/01/24 11/02/24 11/02/24 18:59 06:59 18:59 Intake Total 1050 240 797 Output Total 300 1000 575 Balance 750 -760 222 Weight 84.5 kg 85 kg Intake: IV 10 15 Invasive Line 2 5 Invasive Line 3 5 5 Invasive Line 5 10 Intake, IV Titration 440 440 Amount Cefepime 2 gm In Dextrose 200 200 5% in Water 100 ml @ 25 mls/hr IVPB Q8HR [facility] Rx#: [id number] Lactated Ringers 1,000 ml 240 240 @ 20 mls/hr IV .Q24H [facility] Rx#:[id number] Oral 600 240 342 Output: Urine 300 1000 575 Other: Voiding Method Urinal Urinal # Voids 2 2 - Labs CBC & Chem 7: 11/02/24 07:12 11/02/24 07:12 Labs: Abnormal Lab Results - Last 24 Hours (Table) 11/01/24 11/01/24 11/02/24 Range/Units 16:27 20:10 05:47 RBC (4.40-5.60) 10*6/uL Hgb (13.0-17.0) g/dL Hct (39.6-50.0) % MPV (9.5-12.2) fL Immature Gran # (0.00-0.04) 10*3/uL Sodium (137-145) mmol/L BUN (9-20) mg/dL Glucose (74-99) mg/dL POC Glucose (mg/dL) 301 H 324 H 292 H (70-110) mg/dL Calcium (8.4-10.2) mg/dL 11/02/24 11/02/24 11/02/24 Range/Units 07:12 07:12 11:15 RBC 2.49 L (4.40-5.60) 10*6/uL Hgb 7.6 L (13.0-17.0) g/dL Hct 23.6 L (39.6-50.0) % MPV 9.2 L (9.5-12.2) fL Immature Gran # 0.09 H (0.00-0.04) 10*3/uL Sodium 132 L (137-145) mmol/L BUN 21 H (9-20) mg/dL Glucose 208 H (74-99) mg/dL POC Glucose (mg/dL) 282 H (70-110) mg/dL Calcium 8.2 L (8.4-10.2) mg/dL
[2024-11-02] MEDS: CLOPIDOGREL 75 MG TAB PO SCH (15:21)
[2024-11-02 16:31] LABS: Glucose,Whole Blood 195 mg/dL (70-110)
[2024-11-02 20:14] LABS: Glucose,Whole Blood 232 mg/dL (70-110)
[2024-11-03 06:15] LABS: Glucose,Whole Blood 167 mg/dL (70-110)
--- NOTE | 2024-11-03 08:02 | P.PN ---
Subjective Progress Note Date: 11/03/24 Patient seen and examined. No complaints. Left calf pain i remains improved. continues on incisional pain. Some incisional site pain as expected. Wound VAC in place. Vital signs stable,. Mildly tachycardic shortly through the night. Doing well no complaints, left lower extremity with adequate capillary refill. Sites appear clean and dry. No significant swelling Severe peripheral arterial disease with previous TMA nonhealing wound, recent left femoral to below-knee bypass with in situ vein, mild anemia more chronic appearing. Doing well overall, continue to increase activity as tolerated, heel touch weightbearing. Discharge planning. Continue aspirin and Plavix at this time. No evidence of active bleeding. Transfuse if less than 7 or symptomatic Objective - Vital Signs Vital signs: Vital Signs Temp 98.4 F 11/03/24 03:57 Pulse 91 11/03/24 03:57 Resp 16 11/03/24 03:57 BP 138/64 11/03/24 03:57 Pulse Ox 98 11/03/24 03:57 FiO2 Intake & Output 11/02/24 11/03/24 11/03/24 18:59 06:59 18:59 Intake Total 1259 30 Output Total 775 2550 Balance 484 -2520 Weight 85.5 kg Intake: IV 15 30 Invasive Line 3 5 10 Invasive Line 5 10 20 Intake, IV Titration 440 Amount Cefepime 2 gm In Dextrose 200 5% in Water 100 ml @ 25 mls/hr IVPB Q8HR [facility] Rx#: [id number] Lactated Ringers 1,000 ml 240 @ 20 mls/hr IV .Q24H [facility] Rx#:[id number] Oral 804 Output: Urine 775 2550 Other: Voiding Method Urinal Urinal # Voids 2 - Labs CBC & Chem 7: 11/02/24 07:12 11/02/24 07:12 Labs: Abnormal Lab Results - Last 24 Hours (Table) 11/02/24 11/02/24 11/02/24 Range/Units 07:12 07:12 11:15 RBC 2.49 L (4.40-5.60) 10*6/uL Hgb 7.6 L (13.0-17.0) g/dL Hct 23.6 L (39.6-50.0) % MPV 9.2 L (9.5-12.2) fL Immature Gran # 0.09 H (0.00-0.04) 10*3/uL Sodium 132 L (137-145) mmol/L BUN 21 H (9-20) mg/dL Glucose 208 H (74-99) mg/dL POC Glucose (mg/dL) 282 H (70-110) mg/dL Calcium 8.2 L (8.4-10.2) mg/dL 11/02/24 11/02/24 11/03/24 Range/Units 16:29 20:13 06:12 RBC (4.40-5.60) 10*6/uL Hgb (13.0-17.0) g/dL Hct (39.6-50.0) % MPV (9.5-12.2) fL Immature Gran # (0.00-0.04) 10*3/uL Sodium (137-145) mmol/L BUN (9-20) mg/dL Glucose (74-99) mg/dL POC Glucose (mg/dL) 195 H 232 H 167 H (70-110) mg/dL Calcium (8.4-10.2) mg/dL
[2024-11-03 08:04] LABS: Basophils # (A) 0.05 10*3/uL (0.00-0.10); Basophils % (A) 0.8 %; Eosinophils # (A) 0.18 10*3/uL (0.04-0.35); HCT 24.1 % (39.6-50.0); HGB 7.8 g/dL (13.0-17.0); Lymphocytes # (A) 0.93 10*3/uL (0.90-5.00); Lymphocytes % (A) 15.4 %; MCH 30.8 pg (27.0-32.0); MCHC 32.4 g/dL (32.0-37.0); MCV 95.3 fL (80.0-97.0); Mean Platelet Volume 9.1 fL (9.5-12.2); Monocytes # (A) 0.64 10*3/uL (0.20-1.00); Monocytes % (A) 10.6 %; Neutrophils # (A) 4.09 10*3/uL (1.80-7.70); Platelet Count 322 10*3/uL (140-440); RBC 2.53 10*6/uL (4.40-5.60); RDW 17.2 % (11.5-14.5); WBC 6.02 10*3/uL (4.50-10.00)
[2024-11-03 08:13] LABS: African American GFR (CKD) >90 (>60 ml/min/1.73 sqM); Anion Gap 3 mmol/L; Blood Urea Nitrogen 15 mg/dL (9-20); Calcium 8.6 mg/dL (8.4-10.2); Carbon Dioxide 31 mmol/L (22-30); Chloride 100 mmol/L (98-107); Glucose 115 mg/dL (74-99); Magnesium 1.7 mg/dL (1.6-2.3); Non-African American GFR(CKD) >90 (>60 ml/min/1.73 sqM); Sodium 134 mmol/L (137-145)
--- NOTE | 2024-11-03 08:51 | P.PN ---
Subjective Progress Note Date: 11/03/24 Patient seen and examined at bedside. No acute events overnight. Pending dispo. Vital signs reviewed General: Nontoxic, no distress, appears at stated age, PICC line in place Cardiovascular: S1S2 reg, no murmur Lungs: CTA bilateral, no rhonchi, no rales, no accessory muscle use Abdominal: Soft, nontender to palpation, no guarding Ext: Left lower extremity TMA with wound VAC in place Neuro: CN II-XI grossly intact, no focal neuro deficits Psych: Alert, oriented, appropriate affect Assessment/Plan: 74-year-old with diabetes, HTN, HLD, and previous DVT admitted with wound dehiscence from recent transmetatarsal amputation due to osteomyelitis and bacteremia. #. Status post left common femoral thromboendarterectomy with left femoral to popliteal bypass and left TMA debridement #. Left transmetatarsal wound dehiscence status post transmetatarsal amputation s/p debridement #. Peripheral artery disease #. Plantar surface wound Status post debridement of left foot TMA and plantar surface wound w/ wound VAC in place Continue with cefepime 2 g every 8 hours for 6 weeks, PICC line in place Wound cultures showing Enterobacter Continue aspirin 81 mg PO QD and cilostazol 500 mg PO BID Failed [place] 10/325, continue Percocet 7.5 Q6 as needed pain Patient has been voiding since being off Avalos catheter Infectious disease following Pending placement #. Acute blood loss anemia #. Severe iron deficiency anemia Likely in setting of recent surgery Continue ferrous sulfate 325 mg PO QD along with asorbic acid Follow CBC #. Oqz-rukmtsg-rgbttncxa type 2 diabetes mellitus #. Hyperglycemia, improving Patient with elevated fasting blood glucose at 216, s/p Decadron from procedure yesterday, will continue to monitor Sliding scale insulin with Accu-Cheks Monitor for hypoglycemia Continue Lantus SQ 10 unit last night and Humalog 3 unit AC TID Metformin, glipizide, sitagliptin, Jardiance on hold #. History of DVT not currently on anticoagulation Due to significant increasing pain with cramping in the back of the calf we will repeat venous duplex ultrasound Venous Doppler showing no evidence of DVT Chronic: #Hypertension: Hold losartan 50 mg daily #Hyperlipidemia: Continue with Crestor 40 mg PO QD #BPH: Continue with Flomax 0.4 mg PO QD #Chronic tobacco use: recommended smoking cessation #Neuropathy: Continue with gabapentin increased to 500 mg PO TID Resolved: Thrombocytosis DVT prophylaxis: Heparin subcu Anticipated discharge date: Pending clinical course Anticipated discharge place: [facility] This dictation was prepared using [employer] voice recognition software. Though every attempt is made to correct errors during dictation some may still exist. Objective - Vital Signs Vital signs: Vital Signs Temp 98.4 F 11/03/24 03:57 Pulse 91 11/03/24 03:57 Resp 16 11/03/24 03:57 BP 138/64 11/03/24 03:57 Pulse Ox 98 11/03/24 03:57 FiO2 Intake & Output 11/02/24 11/03/24 11/03/24 18:59 06:59 18:59 Intake Total 1259 30 10 Output Total 775 2550 825 Balance 274 -5490 -463 Weight 85.5 kg Intake: IV 15 30 10 Invasive Line 3 5 10 Invasive Line 5 10 20 10 Intake, IV Titration 440 Amount Cefepime 2 gm In Dextrose 200 5% in Water 100 ml @ 25 mls/hr IVPB Q8HR [facility] Rx#: [id number] Lactated Ringers 1,000 ml 240 @ 20 mls/hr IV .Q24H [facility] Rx#:[id number] Oral 804 Output: Urine 775 2550 825 Other: Voiding Method Urinal Urinal # Voids 2 - Labs CBC & Chem 7: 11/03/24 07:22 11/03/24 07:22 Labs: Abnormal Lab Results - Last 24 Hours (Table) 11/02/24 11/02/24 11/02/24 Range/Units 11:15 16:29 20:13 RBC (4.40-5.60) 10*6/uL Hgb (13.0-17.0) g/dL Hct (39.6-50.0) % MPV (9.5-12.2) fL Immature Gran # (0.00-0.04) 10*3/uL Sodium (137-145) mmol/L Carbon Dioxide (22-30) mmol/L Glucose (74-99) mg/dL POC Glucose (mg/dL) 282 H 195 H 232 H (70-110) mg/dL 11/03/24 11/03/24 11/03/24 Range/Units 06:12 07:22 07:22 RBC 2.53 L (4.40-5.60) 10*6/uL Hgb 7.8 L (13.0-17.0) g/dL Hct 24.1 L (39.6-50.0) % MPV 9.1 L (9.5-12.2) fL Immature Gran # 0.13 H (0.00-0.04) 10*3/uL Sodium 134 L (137-145) mmol/L Carbon Dioxide 31 H (22-30) mmol/L Glucose 115 H (74-99) mg/dL POC Glucose (mg/dL) 167 H (70-110) mg/dL
[2024-11-03 11:32] LABS: Glucose,Whole Blood 228 mg/dL (70-110)
[2024-11-03 16:25] LABS: Glucose,Whole Blood 271 mg/dL (70-110)
--- NOTE | 2024-11-03 16:43 | P.PN ---
Subjective Progress Note Date: 11/02/24 Principal diagnosis: Reason for follow-up is left diabetic foot wound/infection Patient is a 74-year-old male with a past medical history significant for diabetes mellitus hypertension hyperlipidemia reflux PAD in this patient who was recently admitted at this facility and did have a gangrenous toe in this patient also have MSSA bacteremia patient did have left lower extremity angiogram with arthrectomy of the left SFA with balloon dilatation and also transmetatarsal amputation now being readmitted to hospital with dehiscence of the wound status post debridement and deep culture which are currently pending.Patient is status post Left common femoral thromboendarterectomy.Left femoral to popliteal bypass utilizing 8 mm PTFE conduit. and Debridement left transmetatarsal amputation open wound and placement of a greater than 50 cm negative pressure wound VAC therapy completed on 10/31/2024. On today's evaluation that is 11/02/2024, patient has been afebrile, patient is breathing comfortably and is currently on room air, patient denies having any chest pain and cough, patient denies nausea vomiting or diarrhea and no abdominal pain, pain to the left foot is currently controlled. Patient white count 7.21, creatinine 0.81 Objective - Vital Signs Vital signs: Vital Signs Temp 98.0 F 11/02/24 11:18 Pulse 98 11/02/24 11:18 Resp 16 11/02/24 11:18 BP 125/55 11/02/24 11:18 Pulse Ox 97 11/02/24 11:18 FiO2 Intake & Output 11/01/24 11/02/24 11/02/24 18:59 06:59 18:59 Intake Total 6327 966 3816 Output Total 300 1000 575 Balance 750 -760 462 Weight 84.5 kg 85 kg Intake: IV 10 15 Invasive Line 2 5 Invasive Line 3 5 5 Invasive Line 5 10 Intake, IV Titration 440 440 Amount Cefepime 2 gm In Dextrose 200 200 5% in Water 100 ml @ 25 mls/hr IVPB Q8HR RUTH Rx#: [id number] Lactated Ringers 1,000 ml 240 240 @ 20 mls/hr IV .Q24H RUTH Rx#:[id number] Oral 600 240 582 Output: Urine 300 1000 575 Other: Voiding Method Urinal Urinal # Voids 2 2 - Exam GENERAL DESCRIPTION: An elderly male lying in bed in no distress RESPIRATORY SYSTEM: Unlabored breathing , decreased breath sounds at bases HEART: S1 S2 regular rate and rhythm , ABDOMEN: Soft , no tenderness EXTREMITIES: Left foot wound is currently covered with a wound VAC - Labs CBC & Chem 7: 11/03/24 07:22 11/03/24 07:22 Labs: Abnormal Lab Results - Last 24 Hours (Table) 11/01/24 11/01/24 11/02/24 Range/Units 16:27 20:10 05:47 RBC (4.40-5.60) 10*6/uL Hgb (13.0-17.0) g/dL Hct (39.6-50.0) % MPV (9.5-12.2) fL Immature Gran # (0.00-0.04) 10*3/uL Sodium (137-145) mmol/L BUN (9-20) mg/dL Glucose (74-99) mg/dL POC Glucose (mg/dL) 301 H 324 H 292 H (70-110) mg/dL Calcium (8.4-10.2) mg/dL 11/02/24 11/02/24 11/02/24 Range/Units 07:12 07:12 11:15 RBC 2.49 L (4.40-5.60) 10*6/uL Hgb 7.6 L (13.0-17.0) g/dL Hct 23.6 L (39.6-50.0) % MPV 9.2 L (9.5-12.2) fL Immature Gran # 0.09 H (0.00-0.04) 10*3/uL Sodium 132 L (137-145) mmol/L BUN 21 H (9-20) mg/dL Glucose 208 H (74-99) mg/dL POC Glucose (mg/dL) 282 H (70-110) mg/dL Calcium 8.2 L (8.4-10.2) mg/dL Assessment and Plan (1) Wound of left foot Current Visit: Yes Status: Acute Code(s): S91.302A - UNSPECIFIED OPEN WOUND, LEFT FOOT, INITIAL ENCOUNTER SNOMED Code(s): 28771841233841367 (2) Diabetic foot infection Current Visit: Yes Status: Acute Code(s): E11.628 - TYPE 2 DIABETES MELLITUS WITH OTHER SKIN COMPLICATIONS; L08.9 - LOCAL INFECTION OF THE SKIN AND SUBCUTANEOUS TISSUE, UNSP SNOMED Code(s): 496223490 (3) Foot osteomyelitis, left Current Visit: Yes Status: Acute Code(s): M86.9 - OSTEOMYELITIS, UNSPECIFIED SNOMED Code(s): 2511763706696611 Plan: 1patient was recently admitted to the hospital with left foot necrotic toe in this patient was status post left transmetatarsal amputation as well as arthrectomy of the left SFA and balloon dilatation now being readmitted to hospital with dehiscence of his left transmetatarsal amputation site wound in this patient was status post debridement of the wound and deep culture with operative report mentioning wound extending down to the tendon did not mention any bony involvement 2--local wound care with wound VAC will evaluate the wound with the next wound VAC change 3patient cultures currently growing Enterobacter, 4patient did have evidence of osteomyelitis clinically as left foot bone is exposed plan will be for 6-week course of IV cefepime on discharge Dictation was produced using [employer] dictation software. please excuse any grammatical, word or spelling errors. Time with Patient: Less than 30
--- NOTE | 2024-11-03 16:44 | P.PN ---
Subjective Progress Note Date: 11/03/24 Principal diagnosis: Reason for follow-up is left diabetic foot wound/infection Patient is a 74-year-old male with a past medical history significant for diabetes mellitus hypertension hyperlipidemia reflux PAD in this patient who was recently admitted at this facility and did have a gangrenous toe in this patient also have MSSA bacteremia patient did have left lower extremity angiogram with arthrectomy of the left SFA with balloon dilatation and also transmetatarsal amputation now being readmitted to hospital with dehiscence of the wound status post debridement and deep culture which are currently pending.Patient is status post Left common femoral thromboendarterectomy.Left femoral to popliteal bypass utilizing 8 mm PTFE conduit. and Debridement left transmetatarsal amputation open wound and placement of a greater than 50 cm negative pressure wound VAC therapy completed on 10/31/2024. On today's evaluation that is 11/03/2024, Patient is afebrile this morning patient denies having any chest pain shortness of breath or cough, the patient is currently on room air, patient denies any abdominal pain no diarrhea no nausea no vomiting, pain to the left foot has decreased in intensity. Patient did have a white count of 6.02, creatinine 0.70 Objective - Vital Signs Vital signs: Vital Signs Temp 98.3 F 11/03/24 14:51 Pulse 96 11/03/24 14:51 Resp 16 11/03/24 14:51 BP 137/62 11/03/24 14:51 Pulse Ox 96 11/03/24 14:51 FiO2 Intake & Output 11/02/24 11/03/24 11/03/24 18:59 06:59 18:59 Intake Total 1259 30 1332 Output Total 775 2550 1675 Balance 126 -2886 -970 Weight 85.5 kg Intake: IV 15 30 10 Invasive Line 3 5 10 Invasive Line 5 10 20 10 Intake, IV Titration 440 Amount Cefepime 2 gm In Dextrose 200 5% in Water 100 ml @ 25 mls/hr IVPB Q8HR RUTH Rx#: [id number] Lactated Ringers 1,000 ml 240 @ 20 mls/hr IV .Q24H RUTH Rx#:[id number] Oral 804 1322 Output: Urine 775 2550 1675 Other: Voiding Method Urinal Urinal Urinal # Voids 2 - Exam GENERAL DESCRIPTION: An elderly male lying in bed in no distress RESPIRATORY SYSTEM: Unlabored breathing , decreased breath sounds at bases HEART: S1 S2 regular rate and rhythm , ABDOMEN: Soft , no tenderness EXTREMITIES: Left foot wound is currently covered with a wound VAC - Labs CBC & Chem 7: 11/03/24 07:22 11/03/24 07:22 Labs: Abnormal Lab Results - Last 24 Hours (Table) 11/02/24 11/03/24 11/03/24 Range/Units 20:13 06:12 07:22 RBC 2.53 L (4.40-5.60) 10*6/uL Hgb 7.8 L (13.0-17.0) g/dL Hct 24.1 L (39.6-50.0) % MPV 9.1 L (9.5-12.2) fL Immature Gran # 0.13 H (0.00-0.04) 10*3/uL Sodium (137-145) mmol/L Carbon Dioxide (22-30) mmol/L Glucose (74-99) mg/dL POC Glucose (mg/dL) 232 H 167 H (70-110) mg/dL 11/03/24 11/03/24 11/03/24 Range/Units 07:22 11:26 16:24 RBC (4.40-5.60) 10*6/uL Hgb (13.0-17.0) g/dL Hct (39.6-50.0) % MPV (9.5-12.2) fL Immature Gran # (0.00-0.04) 10*3/uL Sodium 134 L (137-145) mmol/L Carbon Dioxide 31 H (22-30) mmol/L Glucose 115 H (74-99) mg/dL POC Glucose (mg/dL) 228 H 271 H (70-110) mg/dL Assessment and Plan (1) Wound of left foot Current Visit: Yes Status: Acute Code(s): S91.302A - UNSPECIFIED OPEN WOUND, LEFT FOOT, INITIAL ENCOUNTER SNOMED Code(s): 47202172024797742 (2) Diabetic foot infection Current Visit: Yes Status: Acute Code(s): E11.628 - TYPE 2 DIABETES MELLITUS WITH OTHER SKIN COMPLICATIONS; L08.9 - LOCAL INFECTION OF THE SKIN AND SUBCUTANEOUS TISSUE, UNSP SNOMED Code(s): 879216290 (3) Foot osteomyelitis, left Current Visit: Yes Status: Acute Code(s): M86.9 - OSTEOMYELITIS, UNSPECIFIED SNOMED Code(s): 0765786624569729 Plan: 1patient was recently admitted to the hospital with left foot necrotic toe in this patient was status post left transmetatarsal amputation as well as arthrectomy of the left SFA and balloon dilatation now being readmitted to hospital with dehiscence of his left transmetatarsal amputation site wound in this patient was status post debridement of the wound and deep culture with operative report mentioning wound extending down to the tendon did not mention any bony involvement 2--local wound care with wound VAC will evaluate the wound with the next wound VAC change 3patient cultures currently growing Enterobacter, 4patient did have evidence of osteomyelitis clinically as left foot bone is exposed plan will be total 6-week course of IV cefepime for which PICC line will be placed in a close outpatient follow-up Dictation was produced using [employer] dictation software. please excuse any grammatical, word or spelling errors. Time with Patient: Less than 30
[2024-11-03] MEDS ORDERED: CEFEPIME 2 GM in SODIUM CHLORIDE 0.9% 100 ML IVPB SCH (16:45)
[2024-11-03 20:08] LABS: Glucose,Whole Blood 239 mg/dL (70-110)
[2024-11-04] MEDS ORDERED: CEFEPIME 2 GM in SODIUM CHLORIDE 0.9% 100 ML IVPB SCH
[2024-11-04 06:09] LABS: Glucose,Whole Blood 178 mg/dL (70-110)
[2024-11-04 06:58] LABS: ALT <6 U/L (4-49); AST 12 U/L (17-59); African American GFR (CKD) >90 (>60 ml/min/1.73 sqM); Albumin 2.8 g/dL (3.5-5.0); Alkaline Phosphatase 72 U/L (38-126); Anion Gap 5 mmol/L; Blood Urea Nitrogen 22 mg/dL (9-20); C Reactive Protein 8.6 mg/dL (<1.0); Calcium 8.8 mg/dL (8.4-10.2); Carbon Dioxide 31 mmol/L (22-30); Chloride 97 mmol/L (98-107); Glucose 147 mg/dL (74-99); Non-African American GFR(CKD) >90 (>60 ml/min/1.73 sqM); Potassium 4.2 mmol/L (3.5-5.1); Sodium 133 mmol/L (137-145); Total Bilirubin 0.4 mg/dL (0.2-1.3); Total Protein 5.7 g/dL (6.3-8.2)
[2024-11-04 06:59] LABS: Basophils # (A) 0.04 10*3/uL (0.00-0.10); Basophils % (A) 0.6 %; Eosinophils # (A) 0.17 10*3/uL (0.04-0.35); Eosinophils % (A) 2.6 %; HCT 23.7 % (39.6-50.0); HGB 7.8 g/dL (13.0-17.0); Lymphocytes % (A) 15.1 %; MCH 30.7 pg (27.0-32.0); MCHC 32.9 g/dL (32.0-37.0); MCV 93.3 fL (80.0-97.0); Monocytes # (A) 0.78 10*3/uL (0.20-1.00); Monocytes % (A) 11.8 %; Neutrophils # (A) 4.48 10*3/uL (1.80-7.70); Neutrophils % (A) 67.6 %; Platelet Count 314 10*3/uL (140-440); RBC 2.54 10*6/uL (4.40-5.60); RDW 16.5 % (11.5-14.5); WBC 6.62 10*3/uL (4.50-10.00)
--- NOTE | 2024-11-04 09:55 | P.PN ---
Subjective Progress Note Date: 11/04/24 Patient seen and examined at bedside. No acute events overnight. Pertinent positives and negatives as discussed above, a complete review of systems was performed and all other systems are negative. Vitals: Signs Reviewed Physical Exam: General: Nontoxic, no distress, appears at stated age, PICC line in place Cardiovascular: S1S2 reg, no murmur Lungs: CTA bilateral, no rhonchi, no rales, no accessory muscle use Abdominal: Soft, nontender to palpation, no guarding Ext: Left lower extremity TMA with wound VAC in place Neuro: CN II-XI grossly intact, no focal neuro deficits Psych: Alert, oriented, appropriate affect Data Received Today: Pertinent Labs: CBC and BMP unremarkable Imaging: N/A Assessment/Plan: 74-year-old with diabetes, HTN, HLD, and previous DVT admitted with wound dehiscence from recent transmetatarsal amputation due to osteomyelitis and bacteremia. #. Status post left common femoral thromboendarterectomy with left femoral to popliteal bypass and left TMA debridement #. Left transmetatarsal wound dehiscence status post transmetatarsal amputation s/p debridement #. Peripheral artery disease #. Plantar surface wound Status post debridement of left foot TMA and plantar surface wound w/ wound VAC in place Continue with cefepime 2 g every 8 hours for 6 weeks, PICC line in place Wound cultures showing Enterobacter Continue aspirin 81 mg PO QD and cilostazol 500 mg PO BID Failed [place] 10/325, continue Percocet 7.5 Q6 prn, morphine lowered to 2mg IV q4hrs prn Patient has been voiding since being off Avalos catheter Infectious disease following Pending placement #. Acute blood loss anemia #. Severe iron deficiency anemia Likely in setting of recent surgery Continue ferrous sulfate 325 mg PO QD along with asorbic acid Follow CBC #. Yqx-amioccp-evufbigtw type 2 diabetes mellitus #. Hyperglycemia, improving Patient with elevated fasting blood glucose at 216, s/p Decadron from procedure yesterday, will continue to monitor Sliding scale insulin with Accu-Cheks Monitor for hypoglycemia Continue Lantus SQ 10 unit last night and Humalog 3 unit AC TID Metformin, glipizide, sitagliptin, Jardiance on hold #. History of DVT not currently on anticoagulation Due to significant increasing pain with cramping in the back of the calf we will repeat venous duplex ultrasound Venous Doppler showing no evidence of DVT Chronic: #Hypertension: Hold losartan 50 mg daily #Hyperlipidemia: Continue with Crestor 40 mg PO QD #BPH: Continue with Flomax 0.4 mg PO QD #Chronic tobacco use: recommended smoking cessation #Neuropathy: Continue with gabapentin increased to 500 mg PO TID Resolved: Thrombocytosis DVT prophylaxis: Heparin subcu Anticipated discharge date: Pending clinical course Anticipated discharge place: [facility] Nando Cabello MD PGY-1 IM Dictation was produced using [employer] dictation software. please excuse any grammatical, word or spelling errors. I saw and evaluated the patient during the juarez and critical portions of this encounter, and discussed the case in detail with the resident author of this note, I agree with the Assessment and Plan, and my changes, if any, are highlighted in blue. Objective - Vital Signs Vital signs: Vital Signs Temp 97.8 F 11/04/24 03:34 Pulse 96 11/04/24 03:34 Resp 16 11/04/24 03:34 BP 130/63 11/04/24 03:34 Pulse Ox 95 11/04/24 03:34 FiO2 Intake & Output 11/03/24 11/03/24 11/04/24 06:59 18:59 06:59 Intake Total 30 1572 Output Total 2550 2325 1000 Balance -9330 753 -1000 Weight 85.5 kg Intake: IV 30 10 Invasive Line 3 10 Invasive Line 5 20 10 Oral 1562 Output: Urine 2550 2325 1000 Other: Voiding Method Urinal Urinal Urinal - Labs CBC & Chem 7: 11/04/24 06:31 11/04/24 06:31 Labs: Abnormal Lab Results - Last 24 Hours (Table) 11/03/24 11/03/24 11/03/24 Range/Units 07:22 07:22 11:26 RBC 2.53 L (4.40-5.60) 10*6/uL Hgb 7.8 L (13.0-17.0) g/dL Hct 24.1 L (39.6-50.0) % MPV 9.1 L (9.5-12.2) fL Immature Gran # 0.13 H (0.00-0.04) 10*3/uL Sodium 134 L (137-145) mmol/L Carbon Dioxide 31 H (22-30) mmol/L Glucose 115 H (74-99) mg/dL POC Glucose (mg/dL) 228 H (70-110) mg/dL 11/03/24 11/03/24 11/04/24 Range/Units 16:24 20:04 06:03 RBC (4.40-5.60) 10*6/uL Hgb (13.0-17.0) g/dL Hct (39.6-50.0) % MPV (9.5-12.2) fL Immature Gran # (0.00-0.04) 10*3/uL Sodium (137-145) mmol/L Carbon Dioxide (22-30) mmol/L Glucose (74-99) mg/dL POC Glucose (mg/dL) 271 H 239 H 178 H (70-110) mg/dL
--- NOTE | 2024-11-04 10:09 | P.PN ---
Subjective Progress Note Date: 11/04/24 Patient seen and examined today as a follow-up. States overall he is doing well. Does have some incisional pain but left lower extremity throbbing pain prior to bypass is improved. Wound VAC is in place to left TMA site. Patient's been afebrile. He has PICC line already placed from previous. WBC 6.6 hemoglobin 7.8. On IV antibiotics. Infectious disease recommends 6 weeks of IV antibiotics. Plan is for discharge to subacute rehab. He is scheduled to have his wound VAC changed today. Objective - Vital Signs Vital signs: Vital Signs Temp 97.8 F 11/04/24 03:34 Pulse 96 11/04/24 03:34 Resp 16 11/04/24 03:34 BP 130/63 11/04/24 03:34 Pulse Ox 95 11/04/24 03:34 FiO2 Intake & Output 11/03/24 11/04/24 11/04/24 18:59 06:59 18:59 Intake Total 1572 180 Output Total 2325 1600 450 Balance -603 1600 -270 Weight 85 kg Intake: IV 10 Invasive Line 5 10 Oral 1562 180 Output: Urine 2325 1600 450 Other: Voiding Method Urinal Urinal - Exam General appearance: The patient is alert, oriented, appears in no acute distress. HET: Head is normocephalic and atraumatic. Pupils are equal and reactive. Neck: Supple. Heart: Regular. Lungs: Equal expansion, normal respiratory effort. Abdomen: Soft, nontender, nondistended. Extremities: Left foot with wound VAC in place with good suction with serosanguineous drainage. Left groin with Prevena wound VAC in place, left calf medial incision well-approximated with jin. Left lower extremity warm to the touch with good capillary refill. Doppler signal present at graft, DP and PT. Neurological: Alert and oriented.. - Labs CBC & Chem 7: 11/04/24 06:31 11/04/24 06:31 Labs: Abnormal Lab Results - Last 24 Hours (Table) 11/03/24 11/03/24 11/03/24 Range/Units 11:26 16:24 20:04 RBC (4.40-5.60) 10*6/uL Hgb (13.0-17.0) g/dL Hct (39.6-50.0) % MPV (9.5-12.2) fL Immature Gran # (0.00-0.04) 10*3/uL Sodium (137-145) mmol/L Chloride (98-107) mmol/L Carbon Dioxide (22-30) mmol/L BUN (9-20) mg/dL Glucose (74-99) mg/dL POC Glucose (mg/dL) 228 H 271 H 239 H (70-110) mg/dL AST (17-59) U/L C-Reactive Protein (<1.0) mg/dL Total Protein (6.3-8.2) g/dL Albumin (3.5-5.0) g/dL 11/04/24 11/04/24 11/04/24 Range/Units 06:03 06:31 06:31 RBC 2.54 L (4.40-5.60) 10*6/uL Hgb 7.8 L (13.0-17.0) g/dL Hct 23.7 L (39.6-50.0) % MPV 9.0 L (9.5-12.2) fL Immature Gran # 0.15 H (0.00-0.04) 10*3/uL Sodium 133 L (137-145) mmol/L Chloride 97 L (98-107) mmol/L Carbon Dioxide 31 H (22-30) mmol/L BUN 22 H (9-20) mg/dL Glucose 147 H (74-99) mg/dL POC Glucose (mg/dL) 178 H (70-110) mg/dL AST 12 L (17-59) U/L C-Reactive Protein 8.6 H (<1.0) mg/dL Total Protein 5.7 L (6.3-8.2) g/dL Albumin 2.8 L (3.5-5.0) g/dL Assessment and Plan Assessment: 1. Postop day #4 for left common femoral thromboendarterectomy and femoral to popliteal bypass graft with debridement of left TMA site with wound VAC application 2. Peripheral arterial disease 3. Diabetes mellitus 4. Chronic tobacco use 5. History of previous gangrenous toes status post amputation 6. History of left lower extremity deep vein thrombosis Plan: 1. Continue wound VAC application, change Monday. Due for wound VAC change today 2. Recommend PT for recent left lower extremity bypass, TMA. Heel walk only on left foot 3. Keep Prevena wound VAC in place to left groin for 2 more days. May remove and discard on 11/06/2024 4. Antibiotics per recommendations from infectious disease 5. Patient is cleared from vascular surgery for discharge. Recommend follow-up in 1 week. Patient will need ongoing outpatient wound care for left TMA. 6. Rest of medical management per primary medical team Thank you for this consultation. The impression and plan of care has been dictated as directed. Dr. Alicea I performed a history and examination of this patient, discussed the same with the dictator. I agree with the dictator's note ,documented as a scribe. Any additional findings or plans will be noted.
[2024-11-04 10:29] LABS: Erythrocyte Sedimentation Rate 60 mm/Hr (0-20)
[2024-11-04 11:25] LABS: Glucose,Whole Blood 396 mg/dL (70-110)
[2024-11-04] MEDS: MORPHINE SULFATE 2 MG/ML SYRINGE IV PRN (14:28)
[2024-11-04 16:09] LABS: Glucose,Whole Blood 334 mg/dL (70-110)
[2024-11-04 20:07] LABS: Glucose,Whole Blood 358 mg/dL (70-110)
[2024-11-04 20:21] VITALS: RESP 18
[2024-11-05 06:22] LABS: Glucose,Whole Blood 205 mg/dL (70-110)
--- NOTE | 2024-11-05 09:41 | P.PN ---
Subjective Progress Note Date: 11/05/24 Patient seen and examined at bedside. No acute events overnight. Pertinent positives and negatives as discussed above, a complete review of systems was performed and all other systems are negative. Vitals: Signs Reviewed Physical Exam: General: Nontoxic, no distress, appears at stated age, PICC line in place Cardiovascular: S1S2 reg, no murmur Lungs: CTA bilateral, no rhonchi, no rales, no accessory muscle use Abdominal: Soft, nontender to palpation, no guarding Ext: Left lower extremity TMA with wound VAC in place Neuro: CN II-XI grossly intact, no focal neuro deficits Psych: Alert, oriented, appropriate affect Data Received Today: Pertinent Labs: CBC and BMP unremarkable Imaging: N/A Assessment/Plan: 74-year-old with diabetes, HTN, HLD, and previous DVT admitted with wound dehiscence from recent transmetatarsal amputation due to osteomyelitis and bacteremia. #. Status post left common femoral thromboendarterectomy with left femoral to popliteal bypass and left TMA debridement #. Left transmetatarsal wound dehiscence status post transmetatarsal amputation s/p debridement #. Peripheral artery disease #. Plantar surface wound Status post debridement of left foot TMA and plantar surface wound w/ wound VAC in place Continue with cefepime 2 g every 8 hours for 6 weeks, PICC line in place Wound cultures showing Enterobacter Continue aspirin 81 mg PO QD and cilostazol 500 mg PO BID Failed [place] 10/325, continue Percocet 7.5 Q6 prn, morphine lowered to 2mg IV q4hrs prn Patient has been voiding since being off Avalos catheter Infectious disease following Pending placement #. Acute blood loss anemia #. Severe iron deficiency anemia Likely in setting of recent surgery Continue ferrous sulfate 325 mg PO QD along with asorbic acid Follow CBC #. Mgs-febdcxi-sgwescjyp type 2 diabetes mellitus Sliding scale insulin with Accu-Cheks Monitor for hypoglycemia Continue Lantus SQ 10 unit last night and Humalog 3 unit AC TID Metformin, glipizide, sitagliptin, Jardiance on hold #. History of DVT not currently on anticoagulation Due to significant increasing pain with cramping in the back of the calf we will repeat venous duplex ultrasound Venous Doppler showing no evidence of DVT Chronic: #Hypertension: Hold losartan 50 mg daily #Hyperlipidemia: Continue with Crestor 40 mg PO QD #BPH: Continue with Flomax 0.4 mg PO QD #Chronic tobacco use: recommended smoking cessation #Neuropathy: Continue with gabapentin increased to 500 mg PO TID Resolved: Thrombocytosis DVT prophylaxis: Heparin subcu Anticipated discharge date: Pending clinical course Anticipated discharge place: [facility] Nando Cabello MD PGY-1 IM Dictation was produced using [employer] dictation software. please excuse any grammatical, word or spelling errors. I saw and evaluated the patient during the juarez and critical portions of this encounter, and discussed the case in detail with the resident author of this note, I agree with the Assessment and Plan, and my changes, if any, are highlighted in blue. Objective - Vital Signs Vital signs: Vital Signs Temp 98.4 F 11/05/24 00:22 Pulse 100 11/05/24 00:23 Resp 18 11/05/24 00:23 BP 106/50 11/05/24 00:22 Pulse Ox 97 11/05/24 00:22 FiO2 Intake & Output 11/04/24 11/05/24 11/05/24 18:59 06:59 18:59 Intake Total 360 Output Total 450 200 Balance -90 -200 Intake: Oral 360 Output: Urine 450 200 Other: Voiding Method Urinal Urinal External Catheter - Labs CBC & Chem 7: 11/04/24 06:31 11/04/24 06:31 Labs: Abnormal Lab Results - Last 24 Hours (Table) 11/04/24 11/04/24 11/04/24 Range/Units 06:31 11:24 16:08 ESR 60 H (0-20) mm/Hr POC Glucose (mg/dL) 396 H 334 H (70-110) mg/dL 11/04/24 11/05/24 Range/Units 20:01 06:20 ESR (0-20) mm/Hr POC Glucose (mg/dL) 358 H 205 H (70-110) mg/dL
[2024-11-05 11:18] LABS: Glucose,Whole Blood 346 mg/dL (70-110)
--- NOTE | 2024-11-05 11:38 | P.PN ---
Subjective Progress Note Date: 11/05/24 Principal diagnosis: Left foot infection Patient seen and examined today as a follow-up. He is status post bypass had debridement of his left TMA. States pain is well-controlled. Pain is still improved on that left lower extremity. Plan is for discharge to subacute rehab. Denies any shortness of breath or chest pain. He has been afebrile. Wound VAC dressing was changed yesterday, it is in place with good suction. Objective - Vital Signs Vital signs: Vital Signs Temp 97.9 F 11/05/24 07:36 Pulse 98 11/05/24 07:36 Resp 18 11/05/24 07:36 BP 127/69 11/05/24 07:36 Pulse Ox 96 11/05/24 07:36 FiO2 Intake & Output 11/04/24 11/05/24 11/05/24 18:59 06:59 18:59 Intake Total 360 Output Total 450 200 Balance -90 -200 Intake: Oral 360 Output: Urine 450 200 Other: Voiding Method Urinal Urinal External Catheter - Exam General appearance: The patient is alert, oriented, appears in no acute distress. HET: Head is normocephalic and atraumatic. Pupils are equal and reactive. Neck: Supple. Heart: Regular. Lungs: Equal expansion, normal respiratory effort. Abdomen: Soft, nontender, nondistended. Extremities: Left foot with wound VAC in place with good suction with serosanguineous drainage. Left groin with Prevena wound VAC in place, left calf medial incision well-approximated with jin. Left lower extremity warm to the touch with good capillary refill. Doppler signal present at graft, DP and PT. Neurological: Alert and oriented.. - Labs CBC & Chem 7: 11/04/24 06:31 11/04/24 06:31 Labs: Abnormal Lab Results - Last 24 Hours (Table) 11/04/24 11/04/24 11/04/24 Range/Units 06:31 11:24 16:08 ESR 60 H (0-20) mm/Hr POC Glucose (mg/dL) 396 H 334 H (70-110) mg/dL 11/04/24 11/05/24 Range/Units 20:01 06:20 ESR (0-20) mm/Hr POC Glucose (mg/dL) 358 H 205 H (70-110) mg/dL Assessment and Plan Assessment: 1. Postop day #5 for left common femoral thromboendarterectomy and femoral to popliteal bypass graft with debridement of left TMA site with wound VAC application 2. Peripheral arterial disease 3. Diabetes mellitus 4. Chronic tobacco use 5. History of previous gangrenous toes status post amputation 6. History of left lower extremity deep vein thrombosis Plan: 1. Continue wound VAC application, change Monday. 2. Recommend PT for recent left lower extremity bypass, TMA. Heel walk only on left foot 3. Keep Prevena wound VAC in place to left groin. May remove and discard on 11/06/2024 4. Antibiotics per recommendations from infectious disease 5. Patient is cleared from vascular surgery for discharge. Recommend follow-up in 1 week. Patient will need ongoing outpatient wound care for left TMA. 6. Rest of medical management per primary medical team Thank you for this consultation. We will sign off at this time. The impression and plan of care has been dictated as directed. Dr. Marshall I performed a history and examination of this patient, discussed the same with the dictator. I agree with the dictator's note ,documented as a scribe. Any additional findings or plans will be noted.
--- NOTE | 2024-11-05 13:31 | P.DS ---
Providers Date of admission: 10/24/24 12:32 Discharge Diagnosis: Status post left common femoral thromboendarterectomy with left femoral to popliteal bypass and left TMA debridement Left transmetatarsal wound dehiscence status post transmetatarsal amputation s/p debridement Peripheral artery disease Plantar surface wound Acute blood loss anemia Severe iron deficiency anemia Cjy-yyqmzxm-aovuqsjwq type 2 diabetes mellitus History of DVT not currently on anticoagulation Hypertension Hyperlipidemia BPH Chronic tobacco use Neuropathy Thrombocytosis Hospital Course: 74-year-old male with PMH of dkl-qxusfmq-lmqwukety diabetes mellitus, hypertension, hyperlipidemia, previous DVT not anticoagulated and BPH, PAD, left foot osteomyelitis status post transmetatarsal amputation of left foot presenting to the ED with wound dehiscence. He had a follow-up appointment with Dr. Mendoza s/p left TMA. Dr. Mendoza was not satisfied with the progression of healing and recommend to come at the hospital for debridement. Patient admits to significant left foot pain when he first came in, but states pain has been controlled after receiving medication. Patient denies any confirmed fevers, chills, chest pain, shortness of breath nausea, vomiting, abdominal pain, urinary symptoms. Social history: Smoking: Current everyday smoker. 21-ohks-tozz history. Alcohol: Denies alcohol use Recreational drug use: Denies Labs on admission: WBC 7.41, Hgb 9.1, MCV 92.7, platelet 5.5, sodium 135, glucose 257 Vital signs on admission: T 97.4 F, WV 101, RR 18, BP 129/64, O2 saturation 99% on room air ED documentation reviewed. Patient be admitted for debridement, along with vascular surgery and infectious disease consult, for his left TMA wound dehiscence. While admitted underwent successful debridement and currently has wound VAC in place. Patient had overall complaint of ongoing claudication. Vascular surgery decided to go forward with left common femoral thromboendarterectomy with left femoral to popliteal bypass. Patient's overall condition improved. He was placed on IV antibiotics for 6 weeks for osteomyelitis. PICC line is in place. He is to follow-up with vascular surgery, infectious disease, and his PCP. He is being discharged on his IV antibiotics, dual antiplatelet therapy. Patient is hemodynamically stable and cleared by all specialties. Patient can be discharged to subacute rehab. Patient seen and examined at bedside. Vital signs reviewed and stable. Physical examination: Vital signs reviewed General: Nontoxic, no distress, appears at stated age, PICC line in place Cardiovascular: S1S2 reg, no murmur Lungs: CTA bilateral, no rhonchi, no rales, no accessory muscle use Abdominal: Soft, nontender to palpation, no guarding Ext: Left lower extremity TMA with wound VAC in place Neuro: CN II-XI grossly intact, no focal neuro deficits Psych: Alert, oriented, appropriate affect A total of greater than 30 minutes of time were spent preparing this complex discharge summary. Patient was discharge on November 05, 2024 at 1:15 PM. Nando Cabello MD PGY-1 IM Dictation was produced using [employer] dictation software. please excuse any grammatical, word or spelling errors. I saw and evaluated the patient during the juarez and critical portions of this encounter, and discussed the case in detail with the resident author of this note, I agree with the Assessment and Plan, and my changes, if any, are highlighted in blue. Expected date of discharge: 11/05/24 Attending physician: Patrick Martinez Consults: 10/24/24 12:30 Consult Physician Urgent Consulting Provider: Dagoberto Alicea Consult Reason/Comments: diabetic foot infection Do you want consulting provider notified?: Already Contacted 10/25/24 15:44 Consult Physician Routine Consulting Provider: Alexa Peters Consult Reason/Comments: diabetic foot wound Do you want consulting provider notified?: Yes 10/28/24 08:17 Consult Physician Routine Consulting Provider: Boone Ramirez Consult Reason/Comments: Cardiac clearance for left femoral-popliteal bypass Do you want consulting provider notified?: Yes Primary care physician: Florentino Roldan Patient Condition at Discharge: Stable Plan - Discharge Summary Discharge Rx Participant: Yes New Discharge Prescriptions: New Cefepime [Maxipime] 2 gm IVPB Q8HR each oxyCODONE-APAP 7.5-325MG [Percocet 7.5-325 mg] 1 each PO Q4HR PRN 3 Days #18 tab PRN Reason: Moderate Pain (Scale 4 To 6) Clopidogrel [Plavix] 75 mg PO DAILY #90 tab Gabapentin [Gralise] 450 mg PO TID #90 tab Continue metFORMIN HCL [Glucophage] 1,000 mg PO BID Aspirin [Adult Low Dose Aspirin EC] 81 mg PO DAILY Rosuvastatin Calcium [Crestor] 40 mg PO DAILY Cholecalciferol [Vitamin D3 (25 Mcg = 1000 Iu)] 50 mcg PO DAILY SITagliptin [Sitagliptin] 100 mg PO DAILY cilostazoL [Pletal] 100 mg PO BID #60 tab Folic Acid 1 mg PO DAILY #30 tab Ferrous Sulfate [Iron (65 MG Elemental)] 325 mg PO DAILY #30 tab ceFAZolin [Kefzol] 2 gm IVP Q8HR #30 each glipiZIDE [Glucotrol] 10 mg PO AC-BID Empagliflozin [Jardiance] 25 mg PO DAILY Podofilox 1 applic TOPICAL DAILY Gabapentin [Neurontin] 300 mg PO TID 30 Days #90 cap Ascorbic Acid [Vitamin C] 1,000 mg PO DAILY #30 tablet Tamsulosin HCl [Flomax] 0.8 mg PO HS #30 cap Multivitamins, Thera [Multivitamin (formulary)] 1 tab PO DAILY Discontinued Losartan [Cozaar] 50 mg PO DAILY metroNIDAZOLE [Flagyl] 500 mg PO Q8HR 10 Days #30 tab HYDROcodone/APAP 7.5-325MG [[place] 7.5-325] 1 tab PO Q6HR PRN PRN Reason: Pain Discharge Medication List metFORMIN HCL [Glucophage] 1,000 mg PO BID 12/23/16 [History] Aspirin [Adult Low Dose Aspirin EC] 81 mg PO DAILY 11/01/17 [History] Cholecalciferol [Vitamin D3 (25 Mcg = 1000 Iu)] 50 mcg PO DAILY 06/17/21 [History] Rosuvastatin Calcium [Crestor] 40 mg PO DAILY 06/17/21 [History] Empagliflozin [Jardiance] 25 mg PO DAILY 10/03/24 [History] Podofilox 1 applic TOPICAL DAILY 10/03/24 [History] SITagliptin [Sitagliptin] 100 mg PO DAILY 10/03/24 [History] glipiZIDE [Glucotrol] 10 mg PO AC-BID 10/03/24 [History] Gabapentin [Neurontin] 300 mg PO TID 30 Days #90 cap 10/08/24 [Rx] cilostazoL [Pletal] 100 mg PO BID #60 tab 10/08/24 [Rx] Ascorbic Acid [Vitamin C] 1,000 mg PO DAILY #30 tablet 10/15/24 [Rx] Ferrous Sulfate [Iron (65 MG Elemental)] 325 mg PO DAILY #30 tab 10/15/24 [Rx] Folic Acid 1 mg PO DAILY #30 tab 10/15/24 [Rx] Tamsulosin HCl [Flomax] 0.8 mg PO HS #30 cap 10/15/24 [Rx] ceFAZolin [Kefzol] 2 gm IVP Q8HR #30 each 10/15/24 [Rx] Multivitamins, Thera [Multivitamin (formulary)] 1 tab PO DAILY 10/17/24 [History] Cefepime [Maxipime] 2 gm IVPB Q8HR each 11/05/24 [Rx] Clopidogrel [Plavix] 75 mg PO DAILY #90 tab 11/05/24 [Rx] Gabapentin [Gralise] 450 mg PO TID #90 tab 11/05/24 [Rx] oxyCODONE-APAP 7.5-325MG [Percocet 7.5-325 mg] 1 each PO Q4HR PRN 3 Days #18 tab 11/05/24 [Rx] Follow up Appointment(s)/Referral(s): Dagoberto Alicea DO [Doctor of Osteopathic Medicine] - 1 Week Florentino Roldan DO [Primary Care Provider] - 1-2 days Alexa Peters MD [STAFF PHYSICIAN] - 1 Week Patient Instructions/Handouts: Peripheral Artery Disease (DC) Activity/Diet/Wound Care/Special Instructions: Encourage ambulation, left heel touch only Continue with negative pressure wound VAC as ordered. Change Wednesdays and Fridays. Keep Prevena wound VAC in place to left groin until 11/06/2024. Then may remove discard. No driving until cleared by surgeon Avoid heavy lifting greater than 10 lbs , pushing, pulling, straining, flights of stairs until cleared by surgeon. ok to shower once Prevena wound VAC removed, but no baths, pools, soaking in tubs until cleared by surgeon to avoid risk of infection. signs of infection ie: fever, rash, drainage from surgical site, swelling contact doctor or return to ER immediately. Heavy bleeding from surgical site apply firm direct pressure and return to ER. Do not attempt to drive self. low sodium/low fat diet Discussed with patient importance of smoking cessation. Patient offered nicotine patch. Quit smoking hotline 1 800 quit-now given to patient. Discharge Disposition: TRANSFER TO SNF/ECF
[2024-11-05 13:56] VITALS: BP 113/67; PULSE 95; TEMP 97.2
--- NOTE | 2024-11-05 14:02 | P.PN ---
Subjective Progress Note Date: 11/05/24 Principal diagnosis: Reason for follow-up is left diabetic foot wound/infection Patient is a 74-year-old male with a past medical history significant for diabetes mellitus hypertension hyperlipidemia reflux PAD in this patient who was recently admitted at this facility and did have a gangrenous toe in this patient also have MSSA bacteremia patient did have left lower extremity angiogram with arthrectomy of the left SFA with balloon dilatation and also transmetatarsal amputation now being readmitted to hospital with dehiscence of the wound status post debridement and deep culture which are currently pending.Patient is status post Left common femoral thromboendarterectomy.Left femoral to popliteal bypass utilizing 8 mm PTFE conduit. and Debridement left transmetatarsal amputation open wound and placement of a greater than 50 cm negative pressure wound VAC therapy completed on 10/31/2024. On today's evaluation that is 11/05/2024,the patient remains to be afebrile, patient is on room air not requiring supplemental oxygen and denies any shortness of breath no chest pain or cough.Patient denies having any nausea or vomiting, no abdominal pain and no diarrhea, no new symptoms. No new labs has been repeated today Objective - Vital Signs Vital signs: Vital Signs Temp 97.2 F L 11/05/24 13:55 Pulse 95 11/05/24 13:55 Resp 18 11/05/24 13:55 BP 113/67 11/05/24 13:55 Pulse Ox 100 11/05/24 13:55 FiO2 Intake & Output 11/04/24 11/05/24 11/05/24 18:59 06:59 18:59 Intake Total 360 Output Total 450 200 Balance -90 -200 Intake: Oral 360 Output: Urine 450 200 Other: Voiding Method Urinal Urinal External Catheter - Exam GENERAL DESCRIPTION: An elderly male lying in bed in no distress RESPIRATORY SYSTEM: Unlabored breathing , decreased breath sounds at bases HEART: S1 S2 regular rate and rhythm , ABDOMEN: Soft , no tenderness EXTREMITIES: Left foot wound is currently covered with a wound VAC - Labs CBC & Chem 7: 11/04/24 06:31 11/04/24 06:31 Labs: Abnormal Lab Results - Last 24 Hours (Table) 11/04/24 11/04/24 11/05/24 Range/Units 16:08 20:01 06:20 POC Glucose (mg/dL) 334 H 358 H 205 H (70-110) mg/dL 11/05/24 Range/Units 11:16 POC Glucose (mg/dL) 346 H (70-110) mg/dL Assessment and Plan (1) Wound of left foot Current Visit: Yes Status: Acute Code(s): S91.302A - UNSPECIFIED OPEN WOUND, LEFT FOOT, INITIAL ENCOUNTER SNOMED Code(s): 06548397362822215 (2) Diabetic foot infection Current Visit: Yes Status: Acute Code(s): E11.628 - TYPE 2 DIABETES MELLITUS WITH OTHER SKIN COMPLICATIONS; L08.9 - LOCAL INFECTION OF THE SKIN AND SUBCUT ANEOUS TISSUE, UNSP SNOMED Code(s): 452486093 (3) Foot osteomyelitis, left Current Visit: Yes Status: Acute Code(s): M86.9 - OSTEOMYELITIS, UNSPECIFIED SNOMED Code(s): 3132266990095831 Plan: 1patient was recently admitted to the hospital with left foot necrotic toe in this patient was status post left transmetatarsal amputation as well as arthrectomy of the left SFA and balloon dilatation now being readmitted to [facility] with dehiscence of his left transmetatarsal amputation site wound in this patient was status post debridement of the wound and deep culture with operative report mentioning wound extending down to the tendon did not mention any bony involvement 2--local wound care with wound VAC will evaluate the wound with the next wound VAC change 3patient cultures currently growing Enterobacter, 4patient did have evidence of osteomyelitis clinically as left foot bone is exposed 5patient did have a PICC line placement plan is to finish 6-week course of IV cefepime with weekly monitoring of CRP and sed rate and close outpatient follow- up Dictation was produced using [email or web address] software. please excuse any grammatical, word or spelling errors. Time with Patient: Less than 30
--- NOTE | 2024-11-05 14:02 | P.PN ---
Subjective Progress Note Date: 11/04/24 Principal diagnosis: Reason for follow-up is left diabetic foot wound/infection Patient is a 74-year-old male with a past medical history significant for diabetes mellitus hypertension hyperlipidemia reflux PAD in this patient who was recently admitted at this facility and did have a gangrenous toe in this patient also have MSSA bacteremia patient did have left lower extremity angiogram with arthrectomy of the left SFA with balloon dilatation and also transmetatarsal amputation now being readmitted to hospital with dehiscence of the wound status post debridement and deep culture which are currently pending.Patient is status post Left common femoral thromboendarterectomy.Left femoral to popliteal bypass utilizing 8 mm PTFE conduit. and Debridement left transmetatarsal amputation open wound and placement of a greater than 50 cm negative pressure wound VAC therapy completed on 10/31/2024. On today's evaluation that is 11/04/2024,the patient denies any fever or any chills, patient is breathing comfortably on room air, the patient denies chest pain shortness of breath and no significant cough, patient denies abdominal pain, no nausea vomiting or diarrhea. Pain to the left foot has decreased in intensity. Patient did have a white count of 6.62 creatinine 0.69 sed rate of 60 Objective - Vital Signs Vital signs: Vital Signs Temp 98 F 11/04/24 11:40 Pulse 96 11/04/24 14:00 Resp 16 11/04/24 14:00 BP 123/61 11/04/24 11:40 Pulse Ox 97 11/04/24 11:40 FiO2 Intake & Output 11/03/24 11/04/24 11/04/24 18:59 06:59 18:59 Intake Total 1572 180 Output Total 2325 1600 450 Balance -118 -8008 -452 Weight 85 kg Intake: IV 10 Invasive Line 5 10 Oral 1562 180 Output: Urine 2325 1600 450 Other: Voiding Method Urinal Urinal Urinal - Exam GENERAL DESCRIPTION: An elderly male lying in bed in no distress RESPIRATORY SYSTEM: Unlabored breathing , decreased breath sounds at bases HEART: S1 S2 regular rate and rhythm , ABDOMEN: Soft , no tenderness EXTREMITIES: Left foot wound is currently covered with a wound VAC - Labs CBC & Chem 7: 11/04/24 06:31 11/04/24 06:31 Labs: Abnormal Lab Results - Last 24 Hours (Table) 11/03/24 11/03/24 11/04/24 Range/Units 16:24 20:04 06:03 RBC (4.40-5.60) 10*6/uL Hgb (13.0-17.0) g/dL Hct (39.6-50.0) % MPV (9.5-12.2) fL Immature Gran # (0.00-0.04) 10*3/uL ESR (0-20) mm/Hr Sodium (137-145) mmol/L Chloride (98-107) mmol/L Carbon Dioxide (22-30) mmol/L BUN (9-20) mg/dL Glucose (74-99) mg/dL POC Glucose (mg/dL) 271 H 239 H 178 H (70-110) mg/dL AST (17-59) U/L C-Reactive Protein (<1.0) mg/dL Total Protein (6.3-8.2) g/dL Albumin (3.5-5.0) g/dL 11/04/24 11/04/24 11/04/24 Range/Units 06:31 06:31 11:24 RBC 2.54 L (4.40-5.60) 10*6/uL Hgb 7.8 L (13.0-17.0) g/dL Hct 23.7 L (39.6-50.0) % MPV 9.0 L (9.5-12.2) fL Immature Gran # 0.15 H (0.00-0.04) 10*3/uL ESR 60 H (0-20) mm/Hr Sodium 133 L (137-145) mmol/L Chloride 97 L (98-107) mmol/L Carbon Dioxide 31 H (22-30) mmol/L BUN 22 H (9-20) mg/dL Glucose 147 H (74-99) mg/dL POC Glucose (mg/dL) 396 H (70-110) mg/dL AST 12 L (17-59) U/L C-Reactive Protein 8.6 H (<1.0) mg/dL Total Protein 5.7 L (6.3-8.2) g/dL Albumin 2.8 L (3.5-5.0) g/dL Assessment and Plan (1) Wound of left foot Current Visit: Yes Status: Acute Code(s): S91.302A - UNSPECIFIED OPEN WOUND, LEFT FOOT, INITIAL ENCOUNTER SNOMED Code(s): 50645629037604621 (2) Diabetic foot infection Current Visit: Yes Status: Acute Code(s): E11.628 - TYPE 2 DIABETES MELLITUS WITH OTHER SKIN COMPLICATIONS; L08.9 - LOCAL INFECTION OF THE SKIN AND SUBCUTANEOUS TISSUE, UNSP SNOMED Code(s): 148677191 (3) Foot osteomyelitis, left Current Visit: Yes Status: Acute Code(s): M86.9 - OSTEOMYELITIS, UNSPECIFIED SNOMED Code(s): 5414187749048658 Plan: 1patient was recently admitted to the hospital with left foot necrotic toe in this patient was status post left transmetatarsal amputation as well as arthrectomy of the left SFA and balloon dilatation now being readmitted to hospital with dehiscence of his left transmetatarsal amputation site wound in this patient was status post debridement of the wound and deep culture with operative report mentioning wound extending down to the tendon did not mention any bony involvement 2--local wound care with wound VAC will evaluate the wound with the next wound VAC change 3patient cultures currently growing Enterobacter, 4patient did have evidence of osteomyelitis clinically as left foot bone is exposed 5plan will be total 6-week course of IV cefepime for which PICC line has been ordered and close outpatient follow-up Dictation was produced using [employer]. please excuse any grammatical, word or spelling errors.
== END 2024-11-05 16:26 | DRG 854 ==
LOC: EC 09:53 → 4SSUR 12:32 → 3SCARD 10-31 12:59 → 4SSUR 11-05 00:03
PROVIDERS: ADMIT Student in an Organized Health Care Education/Training Program; ATTEND Student in an Organized Health Care Education/Training Program
PROC: 0Y6N0Z9 Detachment at Left Foot, Partial 1st Ray, Open Approach (ICD-10-PCS; 2024-10-25)
PROC: 0Y6N0ZB Detachment at Left Foot, Partial 2nd Ray, Open Approach (ICD-10-PCS; 2024-10-25)
PROC: 0Y6N0ZC Detachment at Left Foot, Partial 3rd Ray, Open Approach (ICD-10-PCS; 2024-10-25)
PROC: 0Y6N0ZD Detachment at Left Foot, Partial 4th Ray, Open Approach (ICD-10-PCS; 2024-10-25)
PROC: 0Y6N0ZF Detachment at Left Foot, Partial 5th Ray, Open Approach (ICD-10-PCS; 2024-10-25)
PROC: 0Y6N0Z9 Detachment at Left Foot, Partial 1st Ray, Open Approach (ICD-10-PCS; 2024-10-31)
PROC: 0Y6N0ZB Detachment at Left Foot, Partial 2nd Ray, Open Approach (ICD-10-PCS; 2024-10-31)
PROC: 0Y6N0ZC Detachment at Left Foot, Partial 3rd Ray, Open Approach (ICD-10-PCS; 2024-10-31)
PROC: 0Y6N0ZD Detachment at Left Foot, Partial 4th Ray, Open Approach (ICD-10-PCS; 2024-10-31)
PROC: 0Y6N0ZF Detachment at Left Foot, Partial 5th Ray, Open Approach (ICD-10-PCS; 2024-10-31)
PROC: 04CL3ZZ Extirpation of Matter from Left Femoral Artery, Percutaneous Approach (ICD-10-PCS; 2024-10-31)
PROC: 4A133B1 Monitoring of Arterial Pressure, Peripheral, Percutaneous Approach (ICD-10-PCS; 2024-10-31)
PROC: B548ZZA Ultrasonography of Superior Vena Cava, Guidance (ICD-10-PCS; 2024-10-31)
PROC: B5181ZA Fluoroscopy of Superior Vena Cava using Low Osmolar Contrast, Guidance (ICD-10-PCS; 2024-10-31)
PROC: 03HY32Z Insertion of Monitoring Device into Upper Artery, Percutaneous Approach (ICD-10-PCS; 2024-10-31)
PROC: 4A133J1 Monitoring of Arterial Pulse, Peripheral, Percutaneous Approach (ICD-10-PCS; 2024-10-31)
PROC: 02HV33Z Insertion of Infusion Device into Superior Vena Cava, Percutaneous Approach (ICD-10-PCS; 2024-10-31)
PROC: 041L0JL Bypass Left Femoral Artery to Popliteal Artery with Synthetic Substitute, Open Approach (ICD-10-PCS; principal; 2024-10-31 13:00)
DX: A41.01 Sepsis due to Methicillin susceptible Staphylococcus aureus (principal); D62 Acute posthemorrhagic anemia; I70.262 Atherosclerosis of native arteries of extremities with gangrene, left leg; T87.81 Dehiscence of amputation stump; D63.1 Anemia in chronic kidney disease; M86.8X7 Other osteomyelitis, ankle and foot; E11.42 Type 2 diabetes mellitus with diabetic polyneuropathy; D50.9 Iron deficiency anemia, unspecified; I10 Essential (primary) hypertension; E11.52 Type 2 diabetes mellitus with diabetic peripheral angiopathy with gangrene; E11.628 Type 2 diabetes mellitus with other skin complications; E11.65 Type 2 diabetes mellitus with hyperglycemia; E11.69 Type 2 diabetes mellitus with other specified complication; Z79.4 Long term (current) use of insulin; B96.89 Other specified bacterial agents as the cause of diseases classified elsewhere; Z78.1 Physical restraint status; D75.839 Thrombocytosis, unspecified; Z86.718 Personal history of other venous thrombosis and embolism; E78.5 Hyperlipidemia, unspecified; D63.8 Anemia in other chronic diseases classified elsewhere; F17.210 Nicotine dependence, cigarettes, uncomplicated; L08.9 Local infection of the skin and subcutaneous tissue, unspecified; N40.0 Benign prostatic hyperplasia without lower urinary tract symptoms; Y83.5 Amputation of limb(s) as the cause of abnormal reaction of the patient, or of later complication, without mention of misadventure at the time of the procedure; Z79.02 Long term (current) use of antithrombotics/antiplatelets; Z79.82 Long term (current) use of aspirin; Z79.84 Long term (current) use of oral hypoglycemic drugs; Z79.899 Other long term (current) drug therapy; Z86.0100 Personal history of colon polyps, unspecified; Y84.8 Other medical procedures as the cause of abnormal reaction of the patient, or of later complication, without mention of misadventure at the time of the procedure; Z88.1 Allergy status to other antibiotic agents; Z88.8 Allergy status to other drugs, medicaments and biological substances; Z88.2 Allergy status to sulfonamides
CPT/HCPCS: 36415; 36573; 78452; 80048; 80053; 83605; 83735; 85025; 85027; 85610; 85652; 86140; 86850; 86900; 86901; 87070; 87075; 87077; 87186; 87205; 93017; 93970; 96365; 99285

== ENCOUNTER 2024-11-27 19:33 | Inpatient (IN) | payer OTHER, MEDICARE ==
--- NOTE | 2024-11-27 20:37 | ED ---
Recheck HPI - General Source: EMS Mode of arrival: EMS Limitations: no limitations <Kingsley Corral - Last Filed: 11/27/24 20:36> <Nayana De La Torre - Last Filed: 12/03/24 18:34> - General Chief Complaint: Recheck/Abnormal Lab/Rx Stated Complaint: Abnormal Labs Time Seen by Provider: 11/27/24 20:36 - History of Present Illness Initial Comments: 74-year-old male sent from [facility] [place] for low hemoglobin. Patient states "I need a blood transfusion". He has history of requiring blood transfusions. No blood thinners. Denies hematochezia or melena. (Kingsley Corral) Patient is a 74-year-old gentleman with a past medical history of diabetes, DVT, hyperlipidemia, hypertension, recent transmetatarsal amputation of the left foot who presented today to [facility] on outpatient labs. Patient was sent in by [facility]. Patient currently has a wound VAC on his left foot that he suspects to be the source of his bleeding. He states that he has had continuous bleeding into the wound VAC though is unsure how much blood he has lost. He denies hemoptysis, hematuria, melena or hematochezia. He is not currently on blood thinners. Denies fevers, chills. Denies lightheadedness, dizziness or shortness of breath. Denies chest pain. (Nayana De La Torre) - Related Data Home Medications Medication Instructions Recorded Confirmed metFORMIN HCL [Glucophage] 1,000 mg PO BID 12/23/16 11/28/24 Aspirin [Adult Low Dose Aspirin EC] 81 mg PO DAILY 11/01/17 11/28/24 Cholecalciferol [Vitamin D3 (25 50 mcg PO DAILY 06/17/21 11/28/24 Mcg = 1000 Iu)] Podofilox 1 applic TOPICAL DAILY 10/03/24 11/28/24 glipiZIDE [Glucotrol] 10 mg PO BID 10/03/24 11/28/24 Multivitamins, Thera [Multivitamin 1 tab PO DAILY 10/17/24 11/28/24 (formulary)] 0.9 % Sodium Chloride [Sodium 10 ml IV Q8H 11/28/24 11/28/24 Chloride Flush] Atorvastatin [Lipitor] 80 mg PO HS 11/28/24 11/28/24 Empagliflozin [Jardiance] 25 mg PO DAILY 11/28/24 11/28/24 Lactulose [Cephulac] 20 gm PO BID 11/28/24 11/28/24 Saxagliptin HCl 5 mg PO DAILY 11/28/24 11/28/24 oxyCODONE-APAP 7.5-325MG [Percocet 1 tab PO Q4H PRN 11/28/24 11/28/24 7.5-325 mg] Previous Rx's Medication Instructions Recorded Gabapentin [Neurontin] 300 mg PO TID 30 Days #90 cap 10/08/24 cilostazoL [Pletal] 100 mg PO BID #60 tab 10/08/24 Ascorbic Acid [Vitamin C] 1,000 mg PO DAILY #30 tablet 10/15/24 Ferrous Sulfate [Iron (65 MG 325 mg PO DAILY #30 tab 10/15/24 Elemental)] Folic Acid 1 mg PO DAILY #30 tab 10/15/24 Tamsulosin HCl [Flomax] 0.8 mg PO HS #30 cap 10/15/24 Cefepime [Maxipime] 2 gm IVPB Q8HR each 11/05/24 Clopidogrel [Plavix] 75 mg PO DAILY #90 tab 11/05/24 Allergies Allergy/AdvReac Type Severity Reaction Status Date / Time sulfamethoxazole Allergy Severe joint Verified 11/28/24 08:08 [From Bactrim] pain, aches ciprofloxacin [From Cipro] Allergy joint Verified 11/28/24 08:08 pain, aches lisinopril Allergy joint Verified 11/28/24 08:08 pain, cough trimethoprim [From Bactrim] Allergy joint Verified 11/28/24 08:08 pain, aches NABIL Inhibitors AdvReac Cough Verified 11/28/24 08:08 Review of Systems ROS Other: All systems not noted in ROS Statement are negative. <Kingsley Corral - Last Filed: 11/27/24 20:36> ROS Other: All systems not noted in ROS Statement are negative. <Nayana De La Torre - Last Filed: 12/03/24 18:34> ROS Statement: Those systems with pertinent positive or pertinent negative responses have been documented in the HPI. Past Medical History Past Medical History: Diabetes Mellitus, Deep Vein Thrombosis (DVT), Eye Disorder, GERD/Reflux, Hyperlipidemia, Hypertension, Prostate Disorder Additional Past Medical History / Comment(s): L foot osteomylitis, DJD, DVT R leg, R eye macular degeneration, BPH, benign colon polyps. History of Any Multi-Drug Resistant Organisms: MRSA Date of last positivie culture/infection: 06/19/21 MDRO Source:: MRSA TOE Past Surgical History: Orthopedic Surgery, Tonsillectomy Additional Past Surgical History / Comment(s): L great toe amputation, L 2nd toe "bones disconnected", colonoscopy with polypectomy, bilateral cataract removals, 3rd/4th/5th digit on left foor removed Past Anesthesia/Blood Transfusion Reactions: No Reported Reaction Past Psychological History: No Psychological Hx Reported Smoking Status: Current every day smoker - Past Family History Father History Unknown: Yes Family Medical History: No Reported History Mother Family Medical History: No Reported History Additional Family Medical History / Comment(s): Mother was healthy <Kingsley Corral - Last Filed: 11/27/24 20:36> General Exam Limitations: no limitations <Kingsley Corral - Last Filed: 11/27/24 20:36> <Nayana De La Torre - Last Filed: 12/03/24 18:34> - General Exam Comments Initial Comments: Visual Physical Exam Vital signs reviewed General: Well-appearing, nontoxic, no acute distress. Head: Normocephalic, atraumatic Eyes: PERRLA, EOMI ENT: Airway patent Chest: Nonlabored breathing Skin: No visual rash, normal skin tone Neuro: Alert and oriented 3 Musculoskeletal: No gross abnormalities (Kingsley Corral) PE: CONSTITUTIONAL: No apparent distress, well appearing SKIN: Warm, dry, no jaundice, hives or petechiae. Mild erythema circumferentially wound status post transmetatarsal amputation without discharge EYES: Pupils are equally round, extraocular movements intact without nystagmus, clear conjunctiva, non-icteric sclera HENT: Normocephalic, atraumatic, moist mucus membranes, oropharynx clear without exudates NECK: , Full range of motion, normal appearance PULMONARY: Clear to auscultation without wheezes, rhonchi, or rales, normal excursion, no accessory muscle use and no stridor CARDIOVASCULAR: Regular rate, rhythm, normal S1 and S2. No appreciated murmurs, rubs or gallops. Strong radial pulses with intact distal perfusion. No lower extremity edema GASTROINTESTINAL: Soft, active bowel sounds throughout, non-tender, non- distended, no palpable masses, no rebound or guarding. No hepatosplenomegaly MUSCULOSKELETAL: Left foot transmetatarsal amputation, wound VAC attached, remaining extremities have no gross deformity, no edema, redness, or swelling. NEUROLOGIC:_a/o x 3, GCS 15, normal mentation and speech. Moves all extremities x 4 without motor or sensory deficit PSYCHIATRIC:_normal mood and affect, thought process is clear and linear (Nayana De La Torre) Course Vital Signs 11/27/24 11/27/24 11/27/24 19:34 21:08 22:00 Temperature 97.9 F Pulse Rate 98 96 90 Respiratory 18 18 18 Rate Blood Pressure 112/57 102/45 119/48 O2 Sat by Pulse 100 99 99 Oximetry 11/27/24 11/27/24 11/27/24 23:20 23:36 23:56 Temperature 98.1 F 98 F 98.3 F Pulse Rate 92 90 88 Respiratory 18 18 14 Rate Blood Pressure 110/40 115/53 106/52 O2 Sat by Pulse 99 99 99 Oximetry 11/28/24 11/28/24 11/28/24 01:50 02:09 02:29 Temperature 98.4 F 98.4 F 98.5 F Pulse Rate 83 86 85 Respiratory 16 18 16 Rate Blood Pressure 131/67 119/42 108/46 O2 Sat by Pulse 96 98 Oximetry 11/28/24 11/28/24 11/28/24 04:17 06:00 07:50 Temperature 98.6 F 98.4 F 98.1 F Pulse Rate 81 82 79 Respiratory 16 18 16 Rate Blood Pressure 102/54 115/55 120/60 O2 Sat by Pulse 97 96 97 Oximetry 11/28/24 11/28/24 11/28/24 13:22 18:03 20:09 Temperature Pulse Rate 80 81 82 Respiratory 16 20 18 Rate Blood Pressure 119/58 128/64 110/70 O2 Sat by Pulse 97 96 97 Oximetry Medical Decision Making <Kingsley Corral - Last Filed: 11/27/24 20:36> - Lab Data Result diagrams: 12/03/24 06:31 12/03/24 06:31 <Nayana De La Torre - Last Filed: 12/03/24 18:34> - Medical Decision Making I performed the quick note portion of this visit, electronically signed Kingsley Corral PA-C (Kingsley Corral) Was pt. sent in by a medical professional or institution (NURIS Aguayo, INSTRUMENTATION TECHNICIAN, urgent care, hospital, or residential...) When possible be specific @ -Patient was sent by [facility] [place] Did you speak to anyone other than the patient for history (EMS, parent, family, police, friend...)? What history was obtained from this source @ -No Did you review nursing and triage notes (agree or disagree)? Why? @ -I reviewed nursing and triage notes Were old charts reviewed (outside hosp., previous admission, EMS record, old EKG, old radiological studies, urgent care reports/EKG's, residential records)? Report findings @ -Medical records reviewed-Reviewed labs obtained on 11/26/2024, reflected a he moglobin of 6.1, prior to that on 11/20/2024 was 7.6 Differential Diagnosis (chest pain, altered mental status, abdominal pain women, abdominal pain men, vaginal bleeding, weakness, fever, dyspnea, syncope, headache, dizziness, GI bleed, back pain, seizure, CVA, palpatations, mental health, musculoskeletal)? Differential diagnosis remains broad however top considerations include anemia of chronic disease, iron deficiency anemia, acute blood loss anemia from transmetatarsal amputation, GI bleed, renal insufficiency, laboratory error this is not inclusive list EKG interpreted by me (3pts min.). @ -As above X-rays interpreted by me (1pt min.). @ -None done CT interpreted by me (1pt min.). @ -None done U/S interpreted by me (1pt. min.). @ -None done What testing was considered but not performed or refused? (CT, X-rays, U/S, labs)? Why? @ -None What meds were considered but not given or refused? Why? @ -None Did you discuss the management of the patient with other professionals (professionals i.e. NURIS Aguayo, INSTRUMENTATION TECHNICIAN, lab, RT, psych nurse, director social welfare, investor relations specialist, teacher, flight radio officer, family independence case manager)? Give summary @ -No Was smoking cessation discussed for >3mins.? @ -No Was critical care preformed (if so, how long)? @ -No Were there social determinants of health that impacted care today? How? (Homelessness, low income, unemployed, alcoholism, drug addiction, transportation, low edu. Level, literacy, decrease access to med. care, intermediate, rehab)? @ -No Was there de-escalation of care discussed even if they declined (Discuss DNR or withdrawal of care, Hospice)? @ -No What co-morbidities impacted this encounter? (DM, HTN, Smoking, COPD, CAD, Cancer, CVA, ARF, Chemo, Hep., AIDS, mental health diagnosis, sleep apnea, morbid obesity)? PAD, diabetes Was patient admitted / discharged? Hospital course, mention meds given and route, prescriptions, significant lab abnormalities, going to OR and other pertinent info. @ -Admission-is a pleasant 74-year-old gentleman presenting transferred from his assisted living facility due to anemia. Hemoglobin of 6.1 on outpatient labs. Pt hemodynamically stable on arrival. Patient denies any significant symptoms of blood loss/acute anemia such as shortness of breath, lightheadedness, dizziness. He endorses chronic pain of the left foot where his recent amputation was. Exam shows left transmetatarsal amputation with wound VAC attached, there is a small amount of dark red blood draining into wound VAC, no purulent discharge. Mild erythema surrounding the wound. Discussed with patient recheck of labs, anticipate admission due to need for blood transfusion, monitoring and possible further workup regarding cause of anemia. Patient agreeable plan of care. Hemoglobin resulted at 5.8. 2 units of PRBCs was ordered. I did discuss with patient risks and benefits of blood transfusion, he was agreeable with plan for blood transfusion. Case was discussed with christofer Tobias who kindly accepted patient for admission Undiagnosed new problem with uncertain prognosis? @ -No Drug Therapy requiring intensive monitoring for toxicity (Heparin, Nitro, Insulin, Cardizem)? @ -No Were any procedures done? @ -No Diagnosis/symptom? @Acute on chronic anemia Acute, or Chronic, or Acute on Chronic? @acute on chronic Uncomplicated (without systemic symptoms) or Complicated (systemic symptoms)? @uncomplicated Side effects of treatment? @ -No Exacerbation, Progression, or Severe Exacerbation? @ -No Poses a threat to life or bodily function? How? (Chest pain, USA, AR, pneumonia, PE, COPD, DKA, ARF, appy, cholecystitis, CVA, Diverticulitis, Homicidal, Suicidal, threat to staff... and all critical care pts) @Potentially, if left unaddressed (Nayana De La Torre) - Lab Data Lab Results 11/27/24 11/27/24 11/27/24 Range/Units 20:58 20:58 20:58 WBC 6.88 (4.50-10.00) 10*3/uL RBC 1.86 L (4.40-5.60) 10*6/uL Hgb 5.8 L* D (13.0-17.0) g/dL Hct 18.4 L* (39.6-50.0) % MCV 98.9 H (80.0-97.0) fL MCH 31.2 (27.0-32.0) pg MCHC 31.5 L (32.0-37.0) g/dL Plt Count 320 (140-440) 10*3/uL MPV 9.3 L (9.5-12.2) fL Immature Gran % (Auto) 1.5 % Neutrophils % INSTRUMENTATION TECHNICIAN Lymphocytes % INSTRUMENTATION TECHNICIAN Monocytes % INSTRUMENTATION TECHNICIAN Eosinophils % INSTRUMENTATION TECHNICIAN Basophils % INSTRUMENTATION TECHNICIAN Immature Gran # 0.10 H (0.00-0.04) 10*3/uL Neutrophils # INSTRUMENTATION TECHNICIAN Lymphocytes # INSTRUMENTATION TECHNICIAN Monocytes # INSTRUMENTATION TECHNICIAN Eosinophils # INSTRUMENTATION TECHNICIAN Basophils # INSTRUMENTATION TECHNICIAN Pathologist Review Cancelled PT 10.0 (10.0-12.5) sec INR 0.9 (<1.2) APTT 24.3 (22.0-30.0) sec Sodium 138 (137-145) mmol/L Potassium 4.2 (3.5-5.1) mmol/L Chloride 107 (98-107) mmol/L Carbon Dioxide 20 L (22-30) mmol/L Anion Gap 11 mmol/L BUN 25 H (9-20) mg/dL Creatinine 0.86 (0.66-1.25) mg/dL Est GFR (CKD-EPI)AfAm >90 (>60 ml/min/1.73 sqM) Est GFR (CKD-EPI)NonAf 85 (>60 ml/min/1.73 sqM) Glucose 194 H (74-99) mg/dL Calcium 8.8 (8.4-10.2) mg/dL Total Bilirubin 0.3 (0.2-1.3) mg/dL AST 20 (17-59) U/L ALT 14 (4-49) U/L Alkaline Phosphatase 98 (38-126) U/L Total Protein 6.3 (6.3-8.2) g/dL Albumin 3.4 L (3.5-5.0) g/dL Blood Type Blood Type Recheck Bld Type Recheck Status Antibody Screen Crossmatch Spec Expiration Date 11/27/24 Range/Units 21:15 WBC (4.50-10.00) 10*3/uL RBC (4.40-5.60) 10*6/uL Hgb (13.0-17.0) g/dL Hct (39.6-50.0) % MCV (80.0-97.0) fL MCH (27.0-32.0) pg MCHC (32.0-37.0) g/dL Plt Count (140-440) 10*3/uL MPV (9.5-12.2) fL Immature Gran % (Auto) % Neutrophils % Lymphocytes % Monocytes % Eosinophils % Basophils % Immature Gran # (0.00-0.04) 10*3/uL Neutrophils # Lymphocytes # Monocytes # Eosinophils # Basophils # Pathologist Review PT (10.0-12.5) sec INR (<1.2) APTT (22.0-30.0) sec Sodium (137-145) mmol/L Potassium (3.5-5.1) mmol/L Chloride (98-107) mmol/L Carbon Dioxide (22-30) mmol/L Anion Gap mmol/L BUN (9-20) mg/dL Creatinine (0.66-1.25) mg/dL Est GFR (CKD-EPI)AfAm (>60 ml/min/1.73 sqM) Est GFR (CKD-EPI)NonAf (>60 ml/min/1.73 sqM) Glucose (74-99) mg/dL Calcium (8.4-10.2) mg/dL Total Bilirubin (0.2-1.3) mg/dL AST (17-59) U/L ALT (4-49) U/L Alkaline Phosphatase (38-126) U/L Total Protein (6.3-8.2) g/dL Albumin (3.5-5.0) g/dL Blood Type A Positive Blood Type Recheck A Pos Bld Type Recheck Status No Antibody Screen NEGATIVE Crossmatch See Detail Spec Expiration Date 11/30/2024 - Disposition <Kingsley Corral - Last Filed: 11/27/24 20:36> <Nayana De La Torre - Last Filed: 12/03/24 18:34> Clinical Impression: Acute on chronic anemia Disposition: ADMITTED IP TO THIS HOSP Condition: Stable
[2024-11-27 21:23] LABS: INR 0.9 (<1.2); Partial Thromboplastin Time 24.3 sec (22.0-30.0)
[2024-11-27 21:24] LABS: ALT 14 U/L (4-49); AST 20 U/L (17-59); African American GFR (CKD) >90 (>60 ml/min/1.73 sqM); Albumin 3.4 g/dL (3.5-5.0); Alkaline Phosphatase 98 U/L (38-126); Anion Gap 11 mmol/L; Blood Urea Nitrogen 25 mg/dL (9-20); Calcium 8.8 mg/dL (8.4-10.2); Carbon Dioxide 20 mmol/L (22-30); Chloride 107 mmol/L (98-107); Glucose 194 mg/dL (74-99); Non-African American GFR(CKD) 85 (>60 ml/min/1.73 sqM); Potassium 4.2 mmol/L (3.5-5.1); Sodium 138 mmol/L (137-145); Total Bilirubin 0.3 mg/dL (0.2-1.3); Total Protein 6.3 g/dL (6.3-8.2)
[2024-11-27 21:25] LABS: MCH 31.2 pg (27.0-32.0); MCHC 31.5 g/dL (32.0-37.0); MCV 98.9 fL (80.0-97.0); Mean Platelet Volume 9.3 fL (9.5-12.2); Platelet Count 320 10*3/uL (140-440); RBC 1.86 10*6/uL (4.40-5.60); RDW 16.7 % (11.5-14.5); WBC 6.88 10*3/uL (4.50-10.00)
[2024-11-27 21:30] LABS: HCT 18.4 % (39.6-50.0)
[2024-11-27 21:31] LABS: HGB 5.8 g/dL (13.0-17.0)
[2024-11-27] MEDS ORDERED: DEXTROSE 50% SYRINGE 50 ML IVP PRN ×2 (23:17)
[2024-11-28] MEDS ORDERED: NALOXONE 0.4 MG/ML 1 ML VIAL IV PRN (00:42)
--- NOTE | 2024-11-28 01:27 | P.HPIM ---
History of Present Illness H&P Date: 11/27/24 History of present illness; 74-year-old M with PMH of gyu-rynsgdl-epzqyklvv diabetes mellitus, DVT, h yperlipidemia, hypertension, PAD, left foot osteomyelitis s/p transmetatarsal amputation of the left foot who is presenting the emergency department after being sent from [facility] due to low hemoglobin. He has a history of requiring blood transfusion. Not currently on blood thinners denies any hematochezia or melena. Labratory review: -WBC 6.88, hemoglobin 5.8, hematocrit 18.4, platelet 320; sodium 138, potassium 4.2, bicarb 20, BUN 25, creatinine 0.86, calcium 8.8, total bilirubin 0.3, AST 20, ALT 14, alkaline phosphatase 98 Imaging: None Vitals: - Blood pressure 112/57, heart rate 98, respiratory rate 18, SpO2 100% on room air Patient admitted to internal medicine service REVIEW OF SYSTEMS: Pertinent positives and negatives noted in HPI. The rest of the 14-point review of systems is negative. Physical Exam: General: Nontoxic, no distress, appears at stated age, PICC line in place Cardiovascular: S1S2 reg, no murmur Lungs: CTA bilateral, no rhonchi, no rales, no accessory muscle use Abdominal: Soft, nontender to palpation, no guarding Ext: Left lower extremity TMA with wound VAC in place Neuro: CN II-XI grossly intact, no focal neuro deficits Psych: Alert, oriented, appropriate affect Assessment and plan 74-year-old M with PMH of rds-hqbyzpn-vsznqznlo diabetes mellitus, DVT, hyperlipidemia, hypertension, PAD, left foot osteomyelitis s/p transmetatarsal amputation of the left foot who is presenting the emergency department after being sent from [facility] due to low hemoglobin. #Anemia requiring transfusion - On arrival hemoglobin 5.8 - Has a history of needing blood transfusions - Received 2 units PRBC - Continue to monitor CBC closely, hgb <7 will transfuse - Will measure reticulocyte count, LDH, haptoglobin as well as blood smear ordered, currently pending #Gaa-vkmnzco-mdsyzemxu diabetes mellitus - Hold oral antihyperglycemic agents - Accu-Cheks ACHS - Sliding scale initiated - Most recent hemoglobin A1c on 11/06/2024 showed to be 6.9% - Monitor for hypoglycemia GI prophylaxis: None DVT prophylaxis: Lovenox 40 mg subcu daily The patient is admitted with an anticipated more than than 2 midnight stay for evaluation of low hemoglobin requiring blood transfusion. CODE STATUS: Full code Discussed with: Patient Anticipated discharge place: Pending clinical course Dictation was produced using [employer] dictation software. please excuse any grammatical, word or spelling errors. Siva Florentino MD PGY-1 IM I have seen and evaluated the patient today. I Discussed the case with the resident and agree with the resident's findings I edited the assessment and plan as necessary as documented in the resident's note. no obvious source of active bleeding , patient has wound vac continue with pharmacologic DVT prophylaxis for now , if Hgb continues to drop , start bleeding , then DC and switch to SCDs. check FOBT follow up anemia blood work Past Medical History Past Medical History: Diabetes Mellitus, Deep Vein Thrombosis (DVT), Eye Disorder, GERD/Reflux, Hyperlipidemia, Hypertension, Prostate Disorder Additional Past Medical History / Comment(s): L foot osteomylitis, DJD, DVT R leg, R eye macular degeneration, BPH, benign colon polyps. History of Any Multi-Drug Resistant Organisms: MRSA Date of last positivie culture/infection: 06/19/21 MDRO Source:: MRSA TOE Past Surgical History: Orthopedic Surgery, Tonsillectomy Additional Past Surgical History / Comment(s): L great toe amputation, L 2nd toe "bones disconnected", colonoscopy with polypectomy, bilateral cataract removals, 3rd/4th/5th digit on left foor removed Past Anesthesia/Blood Transfusion Reactions: No Reported Reaction Past Psychological History: No Psychological Hx Reported Smoking Status: Current every day smoker - Past Family History Father History Unknown: Yes Family Medical History: No Reported History Mother Family Medical History: No Reported History Additional Family Medical History / Comment(s): Mother was healthy Medications and Allergies Home Medications Medication Instructions Recorded Confirmed Type metFORMIN HCL [Glucophage] 1,000 mg PO BID 12/23/16 11/12/24 History Aspirin [Adult Low Dose Aspirin EC] 81 mg PO DAILY 11/01/17 11/12/24 History Cholecalciferol [Vitamin D3 (25 50 mcg PO DAILY 06/17/21 11/12/24 History Mcg = 1000 Iu)] Rosuvastatin Calcium [Crestor] 40 mg PO DAILY 06/17/21 11/12/24 History Empagliflozin [Jardiance] 25 mg PO DAILY 10/03/24 11/12/24 History Podofilox 1 applic TOPICAL DAILY 10/03/24 11/12/24 History SITagliptin [Sitagliptin] 100 mg PO DAILY 10/03/24 11/12/24 History glipiZIDE [Glucotrol] 10 mg PO AC-BID 10/03/24 11/12/24 History Gabapentin [Neurontin] 300 mg PO TID 30 Days #90 cap 10/08/24 11/12/24 Rx cilostazoL [Pletal] 100 mg PO BID #60 tab 10/08/24 11/12/24 Rx Ascorbic Acid [Vitamin C] 1,000 mg PO DAILY #30 tablet 10/15/24 11/12/24 Rx Ferrous Sulfate [Iron (65 MG 325 mg PO DAILY #30 tab 10/15/24 11/12/24 Rx Elemental)] Folic Acid 1 mg PO DAILY #30 tab 10/15/24 11/12/24 Rx Tamsulosin HCl [Flomax] 0.8 mg PO HS #30 cap 10/15/24 11/12/24 Rx Multivitamins, Thera [Multivitamin 1 tab PO DAILY 10/17/24 11/12/24 History (formulary)] Cefepime [Maxipime] 2 gm IVPB Q8HR each 11/05/24 11/12/24 Rx Clopidogrel [Plavix] 75 mg PO DAILY #90 tab 11/05/24 11/12/24 Rx Gabapentin [Gralise] 450 mg PO TID #90 tab 11/05/24 11/12/24 Rx oxyCODONE-APAP 7.5-325MG [Percocet 1 each PO Q4HR PRN 3 Days #18 tab 11/05/24 11/12/24 Rx 7.5-325 mg] Allergies Allergy/AdvReac Type Severity Reaction Status Date / Time sulfamethoxazole Allergy Severe joint Verified 11/27/24 19:37 [From Bactrim] pain, aches ciprofloxacin [From Cipro] Allergy joint Verified 11/27/24 19:37 pain, aches lisinopril Allergy joint Verified 11/27/24 19:37 pain, cough trimethoprim [From Bactrim] Allergy joint Verified 11/27/24 19:37 pain, aches NABIL Inhibitors AdvReac Cough Verified 11/27/24 19:37 Physical Exam Vitals: Vital Signs Temp Pulse Resp BP Pulse Ox 11/27/24 19:34 97.9 F 98 18 112/57 100 Intake and Output 11/27/24 11/27/24 11/28/24 14:59 22:59 06:59 Other: Weight 82.554 kg Results CBC & Chem 7: 11/27/24 20:58 11/27/24 20:58 Labs: Abnormal Lab Results - Last 24 Hours (Table) 11/27/24 11/27/24 11/27/24 Range/Units 20:58 20:58 21:15 RBC 1.86 L (4.40-5.60) 10*6/uL Hgb 5.8 L* D (13.0-17.0) g/dL Hct 18.4 L* (39.6-50.0) % MCV 98.9 H (80.0-97.0) fL MCHC 31.5 L (32.0-37.0) g/dL MPV 9.3 L (9.5-12.2) fL Immature Gran # 0.10 H (0.00-0.04) 10*3/uL Carbon Dioxide 20 L (22-30) mmol/L BUN 25 H (9-20) mg/dL Glucose 194 H (74-99) mg/dL Albumin 3.4 L (3.5-5.0) g/dL Crossmatch See Detail
[2024-11-28 05:54] LABS: Basophils # (A) 0.03 10*3/uL (0.00-0.10); Basophils % (A) 0.5 %; Eosinophils # (A) 0.19 10*3/uL (0.04-0.35); Eosinophils % (A) 3.1 %; HCT 21.7 % (39.6-50.0); HGB 7.2 g/dL (13.0-17.0); Lymphocytes # (A) 0.74 10*3/uL (0.90-5.00); MCH 31.9 pg (27.0-32.0); MCHC 33.2 g/dL (32.0-37.0); Monocytes # (A) 0.68 10*3/uL (0.20-1.00); Neutrophils # (A) 4.47 10*3/uL (1.80-7.70); Neutrophils % (A) 72.4 %; Platelet Count 281 10*3/uL (140-440); RBC 2.26 10*6/uL (4.40-5.60); RDW 16.2 % (11.5-14.5); WBC 6.17 10*3/uL (4.50-10.00)
[2024-11-28 06:08] LABS: African American GFR (CKD) >90 (>60 ml/min/1.73 sqM); Anion Gap 8 mmol/L; Blood Urea Nitrogen 20 mg/dL (9-20); Carbon Dioxide 22 mmol/L (22-30); Chloride 106 mmol/L (98-107); Glucose 86 mg/dL (74-99); Non-African American GFR(CKD) >90 (>60 ml/min/1.73 sqM); Sodium 136 mmol/L (137-145)
[2024-11-28 08:04] LABS: Glucose,Whole Blood 108 mg/dL (70-110)
[2024-11-28] MEDS: INSULIN LISPRO (HumaLOG) 100 UNIT/ML 10 mL VL SQ SCH (08:06)
[2024-11-28] MEDS: oxyCODONE-APAP 7.5-325MG 1 EACH TAB PO PRN (08:09)
[2024-11-28 08:16] LABS: Reticulocyte % 5.49 % (0.10-1.80)
[2024-11-28 09:46] LABS: HCT 21.4 % (39.6-50.0); HGB 7.1 g/dL (13.0-17.0); MCH 31.8 pg (27.0-32.0); MCHC 33.2 g/dL (32.0-37.0); Mean Platelet Volume 8.9 fL (9.5-12.2); Platelet Count 257 10*3/uL (140-440); RBC 2.23 10*6/uL (4.40-5.60); RDW 16.8 % (11.5-14.5); WBC 5.92 10*3/uL (4.50-10.00)
[2024-11-28] MEDS ORDERED: oxyCODONE-APAP 7.5-325MG 1 EACH TAB PO PRN (10:14)
[2024-11-28] MEDS ORDERED: CEFEPIME 2 GM VIAL IVPB SCH (10:15)
[2024-11-28 10:19] LABS: Eosinophils # (M) 0.12 k/uL (0-0.7); Lymphocytes # (M) 0.95 k/uL (1.0-4.8); Metamyelocytes # (M) 0.06 k/uL (0); Metamyelocytes % 1 %; Monocytes # (M) 0.41 k/uL (0-1.0); Myelocytes # (M) 0.12 k/uL (0); Myelocytes % 2 %; Neutrophils # (M) 4.38 k/uL (1.3-7.7); Neutrophils % (M) 74 %; Nucleated Red Blood Cells 0 /100 WBC (0-0); Total Cells Counted 200
[2024-11-28 10:22] LABS: RBC Morphology Normal
[2024-11-28] MEDS: FERROUS SULFATE 325 MG TAB PO SCH (11:10)
[2024-11-28] MEDS: SODIUM FERRIC GLUCONAT-SUCROSE 125 MG in SODIUM CHLORIDE 0.9% 100 ML IVPB SCH (11:10)
[2024-11-28 12:18] LABS: Glucose,Whole Blood 105 mg/dL (70-110)
[2024-11-28] MEDS: CYANOCOBALAMIN 1,000 MCG/ML 1 ML VIAL IM SCH (12:21)
[2024-11-28] MEDS: CEFEPIME 2 GM in SODIUM CHLORIDE 0.9% 100 ML IVPB SCH ×2 (13:40→13:55)
[2024-11-28] MEDS ORDERED: CEFEPIME 2 GM in SODIUM CHLORIDE 0.9% 100 ML IVPB SCH (14:00)
--- NOTE | 2024-11-28 14:32 | US ---
EXAMINATION TYPE: US venous doppler duplex LE LT DATE OF EXAM: 11/28/2024 2:10 PM COMPARISON: US 2024 CLINICAL INDICATION: Male, 74 years old with history of calf pain; , Pain TECHNIQUE: The lower extremity deep venous system is examined utilizing real time linear array sonog lacey with graded compression, color doppler sonography, and spectral doppler. SIDE PERFORMED: Left FINDINGS: VESSELS IMAGED: Common Femoral Vein Deep Femoral Vein Greater Saphenous Vein * Femoral Vein Popliteal Vein Small Saphenous Vein * Proximal Calf Veins (* superficial vessels) Left Leg: Appears negative for DVT Left groin - multiple lymph nodes with largest measuring 2.4cm IMPRESSION: 1. Left lower extremity ultrasound negative for deep venous thrombosis. 2. Enlarged left inguinal lymph node [facility], , 11/28/2024 2:29 PM
--- NOTE | 2024-11-28 15:50 | P.PN ---
Subjective Progress Note Date: 11/28/24 Patient was seen and examined. He reports burning pain in his left calf. No complaints otherwise. CBC and BMP significant for RBC 2.23, Hg 7.1, Hct 21.4, Na 136. Retic count 5.49. Haptoglobin 284. General: non toxic, no distress, appears at stated age Derm: warm, dry Head: atraumatic, normocephalic, symmetric Eyes: EOMI, no lid lag, anicteric sclera Mouth: no lip lesion, mucus membranes moist Cardiovascular: S1S2 reg, no murmur Lungs: Clear to auscultation bilaterally, no rhonchi, no rales , no accessory muscle use Ext: no gross muscle atrophy, no edema, L TMA with wound vac with calf tenderness Neuro: No focal neurologic deficits. Based on my assessment of this patient, this patient meets a high complexity level of care. Macrocytic anemia: Multifactorial. Acute blood loss from TMA on 10/31. Iron studies 10/2024 shows Fe 9, % sat 6.08, Ferritin 338. B12 206. Folate 7.70. Hold ASA, Cilostazol and Plavix for now. Obtain iron studies, B12 and Folate. Obtain stool occult. Start ferric gluconate 125 mg IV QD. Start cyanocobalamin 1000 mcg IM QD. Continue Folic acid 1mg PO QD. Hematology consulted. Left foot OM status post status post transmetatarsal amputation and debridement: Continue Cefepime 2g IV TID. Obtain venous duplex to rule out DVT. Pain management with Percocet 10 Q4H PRN + Gabapentin 400 mg PO TID (increased doses). Wound care consulted. Owl-fkmcper-vmafaiabn type 2 diabetes mellitus: ISS + Accuchecks ACHS along with hypoglycemic precautions. History of DVT not currently on anticoagulation Hyperlipidemia: Lipitor 80 mg PO QHS. BPH: Flomax 0.8 mg PO QHS. Chronic tobacco use Peripheral neuropathy: Pain management as above. CODE STATUS: FULL CODE DVT Prophylaxis: SCD GI Prophylaxis: Designated medical POA if patient is not able to make medical decisions for themselves: I have reviewed the following outside solar sales consultant notes: I have reviewed the results of the following tests: CBC, BMP, Retic count, Haptoglobin. I have ordered the following tests: Iron studies, B12, Folate, CBC in the AM. I have discussed the care of this patient with the following independent historian: DUSTIN. I have independently interpreted the following test below: I have discussed the management of this patient with the following physician: Objective - Vital Signs Vital signs: Vital Signs Temp 98.1 F 11/28/24 07:50 Pulse 80 11/28/24 13:22 Resp 16 11/28/24 13:22 BP 119/58 11/28/24 13:22 Pulse Ox 97 11/28/24 13:22 FiO2 Intake & Output 11/27/24 11/28/24 11/28/24 18:59 06:59 18:59 Intake Total 620 Balance 620 Weight 82.554 kg Intake: Blood Product 620 Rc As-1 Unit 310 [id number] Rc As-1 Unit 310 [id number] - Labs CBC & Chem 7: 11/28/24 09:11 11/28/24 05:12 Labs: Abnormal Lab Results - Last 24 Hours (Table) 11/27/24 11/27/24 11/27/24 Range/Units 20:58 20:58 21:15 RBC 1.86 L (4.40-5.60) 10*6/uL Hgb 5.8 L* D (13.0-17.0) g/dL Hct 18.4 L* (39.6-50.0) % MCV 98.9 H (80.0-97.0) fL MCHC 31.5 L (32.0-37.0) g/dL RDW (11.5-14.5) % MPV 9.3 L (9.5-12.2) fL Immature Gran # 0.10 H (0.00-0.04) 10*3/uL Lymphocytes # (0.90-5.00) 10*3/uL Lymphocytes # (Manual) (1.0-4.8) k/uL Metamyelocytes # (Man) (0) k/uL Myelocytes # (Manual) (0) k/uL Retic Count (0.10-1.80) % Haptoglobin (31.2-198.0) mg/dL Sodium (137-145) mmol/L Carbon Dioxide 20 L (22-30) mmol/L BUN 25 H (9-20) mg/dL Glucose 194 H (74-99) mg/dL Albumin 3.4 L (3.5-5.0) g/dL Crossmatch See Detail 11/28/24 11/28/24 11/28/24 Range/Units 05:12 05:12 05:12 RBC 2.26 L (4.40-5.60) 10*6/uL Hgb 7.2 L (13.0-17.0) g/dL Hct 21.7 L (39.6-50.0) % MCV (80.0-97.0) fL MCHC (32.0-37.0) g/dL RDW 16.2 H (11.5-14.5) % MPV 9.0 L (9.5-12.2) fL Immature Gran # 0.06 H (0.00-0.04) 10*3/uL Lymphocytes # 0.74 L (0.90-5.00) 10*3/uL Lymphocytes # (Manual) (1.0-4.8) k/uL Metamyelocytes # (Man) (0) k/uL Myelocytes # (Manual) (0) k/uL Retic Count 5.49 H (0.10-1.80) % Haptoglobin 284.0 H (31.2-198.0) mg/dL Sodium (137-145) mmol/L Carbon Dioxide (22-30) mmol/L BUN (9-20) mg/dL Glucose (74-99) mg/dL Albumin (3.5-5.0) g/dL Crossmatch 11/28/24 11/28/24 Range/Units 05:12 09:11 RBC 2.23 L (4.40-5.60) 10*6/uL Hgb 7.1 L (13.0-17.0) g/dL Hct 21.4 L (39.6-50.0) % MCV (80.0-97.0) fL MCHC (32.0-37.0) g/dL RDW 16.8 H (11.5-14.5) % MPV 8.9 L (9.5-12.2) fL Immature Gran # 0.08 H (0.00-0.04) 10*3/uL Lymphocytes # (0.90-5.00) 10*3/uL Lymphocytes # (Manual) 0.95 L (1.0-4.8) k/uL Metamyelocytes # (Man) 0.06 H (0) k/uL Myelocytes # (Manual) 0.12 H (0) k/uL Retic Count (0.10-1.80) % Haptoglobin (31.2-198.0) mg/dL Sodium 136 L (137-145) mmol/L Carbon Dioxide (22-30) mmol/L BUN (9-20) mg/dL Glucose (74-99) mg/dL Albumin (3.5-5.0) g/dL Crossmatch
[2024-11-28] MEDS ORDERED: GABAPENTIN 300 MG CAP PO SCH (16:00)
[2024-11-28 16:37] LABS: % Iron Saturation 27.09 (15.00-50.00); Ferritin 56.7 ng/mL (22.0-322.0)
[2024-11-28 17:51] LABS: Glucose,Whole Blood 195 mg/dL (70-110)
[2024-11-28] MEDS: GABAPENTIN 400 MG CAP PO SCH (18:00)
[2024-11-28] MEDS: oxyCODONE-APAP 10-325MG 1 EACH TAB PO PRN (18:00)
[2024-11-28] MEDS: LACTULOSE 20 GM/30 ML CUP PO SCH (21:56)
[2024-11-28] MEDS: TAMSULOSIN 0.4 MG CAP.ER.24H PO SCH (21:56)
[2024-11-28] MEDS: ATORVASTATIN 80 MG TAB PO SCH (21:57)
[2024-11-29 07:25] LABS: Glucose,Whole Blood 130 mg/dL (70-110)
[2024-11-29] MEDS: ASCORBIC ACID 500 MG TAB PO SCH (09:03)
[2024-11-29] MEDS: CHOLECALCIFEROL 25 MCG (1000 IU) TABLET PO SCH (09:03)
[2024-11-29] MEDS: FOLIC ACID 1 MG TAB PO SCH (09:03)
[2024-11-29] MEDS: DAPAGLIFLOZIN PROPANEDIOL 10 MG TABLET PO SCH (09:03)
[2024-11-29 10:01] LABS: Basophils # (A) 0.05 10*3/uL (0.00-0.10); Basophils % (A) 0.8 %; Eosinophils # (A) 0.18 10*3/uL (0.04-0.35); Eosinophils % (A) 2.8 %; HCT 23.3 % (39.6-50.0); HGB 7.5 g/dL (13.0-17.0); Lymphocytes # (A) 0.67 10*3/uL (0.90-5.00); Lymphocytes % (A) 10.3 %; MCH 31.4 pg (27.0-32.0); MCHC 32.2 g/dL (32.0-37.0); MCV 97.5 fL (80.0-97.0); Mean Platelet Volume 8.8 fL (9.5-12.2); Monocytes # (A) 0.49 10*3/uL (0.20-1.00); Monocytes % (A) 7.5 %; Neutrophils # (A) 5.03 10*3/uL (1.80-7.70); Neutrophils % (A) 77.2 %; Platelet Count 294 10*3/uL (140-440); RBC 2.39 10*6/uL (4.40-5.60); RDW 17.2 % (11.5-14.5); WBC 6.51 10*3/uL (4.50-10.00)
[2024-11-29 12:31] LABS: Glucose,Whole Blood 211 mg/dL (70-110)
--- NOTE | 2024-11-29 17:02 | P.PN ---
Subjective Progress Note Date: 11/29/24 Principal diagnosis: anemia Patient was seen and examined. He reports burning pain in his left calf. No complaints otherwise. CBC and BMP significant for RBC 2.23, Hg 7.1, Hct 21.4, Na 136. Retic count 5.49. Haptoglobin 284. 11/29 Patient seen and examined at bedside. Complains of pain in his left lower leg. Left foot wound was dressed last night. Vitals are stable this morning. Remains on Cefepime. Hemoglobin 7.5 (up from 7.1) ,Iron 68. TIBC 251, Ferritin 56.7, retic count 5.49%, haptoglobin 284, sodium 136, creatinine 0.69 General: non toxic, no distress, appears at stated age Derm: warm, dry Head: atraumatic, normocephalic, symmetric Eyes: EOMI, no lid lag, anicteric sclera Mouth: no lip lesion, mucus membranes moist Cardiovascular: S1S2 reg, no murmur Lungs: Clear to auscultation bilaterally, no rhonchi, no rales , no accessory muscle use Ext: no gross muscle atrophy, no edema, L TMA, wrapped in bandages, foul odour Neuro: No focal neurologic deficits. Based on my assessment of this patient, this patient meets a high complexity level of care. Macrocytic anemia: Multifactorial. Acute blood loss from TMA on 10/31. Iron studies 10/2024 showed Fe 9, % sat 6.08, Ferritin 338, now have improved. B12 206. Folate 7.70. Hold ASA, Cilostazol and Plavix for now. Pending stool occult. continue ferric gluconate 125 mg IV QD. continue cyanocobalamin 1000 mcg IM QD. Continue Folic acid 1mg PO QD. Hematology consulted. Left foot OM status post status post transmetatarsal amputation and debridement: Continue Cefepime 2g IV TID. Pain management with Percocet 10 Q4H PRN + Gabapentin 400 mg PO TID. Wound care consulted. Ggg-biwckhj-iqmuuykvy type 2 diabetes mellitus: ISS + Accuchecks ACHS along with hypoglycemic precautions. History of DVT not currently on anticoagulation, Duplex US 11/28 negative for DVT Enlarged left inguinal lymph node: will need to be followed up o/p with repeat imaging Hyperlipidemia: Lipitor 80 mg PO QHS. BPH: Flomax 0.8 mg PO QHS. Chronic tobacco use Peripheral neuropathy: Pain management as above. CODE STATUS: FULL CODE DVT Prophylaxis: SCD, holding AC due to anemia GI Prophylaxis: Designated medical POA if patient is not able to make medical decisions for themselves: I have reviewed the following income tax consultant notes: I have reviewed the results of the following tests: I have ordered the following tests: CBC, CMP I have discussed the care of this patient with the following independent historian: RN. I have independently interpreted the following test below: I have discussed the management of this patient with the following physician: Objective - Vital Signs Vital signs: Vital Signs Temp 98.2 F 11/29/24 12:24 Pulse 82 11/29/24 12:24 Resp 16 11/29/24 12:24 BP 126/65 11/29/24 12:24 Pulse Ox 97 11/29/24 12:24 FiO2 Intake & Output 11/28/24 11/29/24 11/29/24 18:59 06:59 18:59 Intake Total 200 Balance 200 Weight 82.554 kg Intake: Intake, IV Titration 200 Amount Cefepime 2 gm In Sodium 200 Chloride 0.9% 100 ml @ 25 mls/hr IVPB Q8H [facility] Rx#: [id number] Other: Voiding Method Urinal # Voids 3 2 - Labs CBC & Chem 7: 11/29/24 09:51 11/28/24 05:12 Labs: Abnormal Lab Results - Last 24 Hours (Table) 11/28/24 11/29/24 11/29/24 Range/Units 17:49 07:14 09:51 RBC 2.39 L (4.40-5.60) 10*6/uL Hgb 7.5 L (13.0-17.0) g/dL Hct 23.3 L (39.6-50.0) % MCV 97.5 H (80.0-97.0) fL RDW 17.2 H (11.5-14.5) % MPV 8.8 L (9.5-12.2) fL Immature Gran # 0.09 H (0.00-0.04) 10*3/uL Lymphocytes # 0.67 L (0.90-5.00) 10*3/uL POC Glucose (mg/dL) 195 H 130 H (70-110) mg/dL 05/30/25 Range/Units 12:30 RBC (4.40-5.60) 10*6/uL Hgb (13.0-17.0) g/dL Hct (39.6-50.0) % MCV (80.0-97.0) fL RDW (11.5-14.5) % MPV (9.5-12.2) fL Immature Gran # (0.00-0.04) 10*3/uL Lymphocytes # (0.90-5.00) 10*3/uL POC Glucose (mg/dL) 211 H (70-110) mg/dL
[2024-11-29 17:07] LABS: Glucose,Whole Blood 136 mg/dL (70-110)
--- NOTE | 2024-11-29 20:37 | P.CONS ---
History of Present Illness - Reason for Consult Consult date: 11/29/24 anemia Requesting physician: Meera Torre - Chief Complaint abdnormal labs - History of Present Illness Patient is a 74-year-old male who presents emergency room for anemia from his rehab facility. On admit hemoglobin is noted at 5.8, MCV 98.9. WBC 6.8, platelets 320,000. S/p 2 units PRBCs with appropriate response with hemoglobin today 7.5. Patient had recent amputation of left toes/metatarsals last month and was on wound VAC and IV antibiotics for osteomyelitis. 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 On antiplatelet therapy with Plavix and aspirin. Patient states wound VAC was producing bloody output which he believes causds anemia. Denies previous history of anemia. Patient does state 3 days ago he had darker stools, unsure if they were black/tarry. Upon admit left lower extremity Doppler negative for DVT. Nutritional studies showed iron saturation 27% and ferritin 56.7, however these were obtained after 1 unit PRBCs. Vitamin B12 274 and folate 24.9. Patient has been started on IV iron, IM vitamin B12 and folate. Review of Systems 10 point ROS is negative except as stated in the HPI Past Medical History Past Medical History: Diabetes Mellitus, Deep Vein Thrombosis (DVT), Eye Disorder, GERD/Reflux, Hyperlipidemia, Hypertension, Prostate Disorder Additional Past Medical History / Comment(s): L foot osteomylitis, DJD, DVT R leg, R eye macular degeneration, BPH, benign colon polyps. History of Any Multi-Drug Resistant Organisms: MRSA Year Discovered:: 06/19/21 MDRO Source:: MRSA TOE Past Surgical History: Orthopedic Surgery, Tonsillectomy Additional Past Surgical History / Comment(s): L great toe amputation, L 2nd toe "bones disconnected", colonoscopy with polypectomy, bilateral cataract removals, 3rd/4th/5th digit on left foot removed, L fem/pop Past Anesthesia/Blood Transfusion Reactions: No Reported Reaction Past Psychological History: No Psychological Hx Reported Additional Psychological History / Comment(s): Pt resides alone. He is independent. Smoking Status: Current every day smoker Past Alcohol Use History: None Reported Additional Past Alcohol Use History / Comment(s): 1PPD SINCE AGE 10 Past Drug Use History: None Reported - Past Family History Father History Unknown: Yes Family Medical History: No Reported History Mother Family Medical History: No Reported History Additional Family Medical History / Comment(s): Mother was healthy Medications and Allergies Home Medications Medication Instructions Recorded Confirmed Type metFORMIN HCL [Glucophage] 1,000 mg PO BID 12/23/16 11/28/24 History Aspirin [Adult Low Dose Aspirin EC] 81 mg PO DAILY 11/01/17 11/28/24 History Cholecalciferol [Vitamin D3 (25 50 mcg PO DAILY 06/17/21 11/28/24 History Mcg = 1000 Iu)] Podofilox 1 applic TOPICAL DAILY 10/03/24 11/28/24 History glipiZIDE [Glucotrol] 10 mg PO BID 10/03/24 11/28/24 History Gabapentin [Neurontin] 300 mg PO TID 30 Days #90 cap 10/08/24 11/28/24 Rx cilostazoL [Pletal] 100 mg PO BID #60 tab 10/08/24 11/28/24 Rx Ascorbic Acid [Vitamin C] 1,000 mg PO DAILY #30 tablet 10/15/24 11/28/24 Rx Ferrous Sulfate [Iron (65 MG 325 mg PO DAILY #30 tab 10/15/24 11/28/24 Rx Elemental)] Folic Acid 1 mg PO DAILY #30 tab 10/15/24 11/28/24 Rx Tamsulosin HCl [Flomax] 0.8 mg PO HS #30 cap 10/15/24 11/28/24 Rx Multivitamins, Thera [Multivitamin 1 tab PO DAILY 10/17/24 11/28/24 History (formulary)] Cefepime [Maxipime] 2 gm IVPB Q8HR each 11/05/24 11/28/24 Rx Clopidogrel [Plavix] 75 mg PO DAILY #90 tab 11/05/24 11/28/24 Rx 0.9 % Sodium Chloride [Sodium 10 ml IV Q8H 11/28/24 11/28/24 History Chloride Flush] Atorvastatin [Lipitor] 80 mg PO HS 11/28/24 11/28/24 History Empagliflozin [Jardiance] 25 mg PO DAILY 11/28/24 11/28/24 History Lactulose [Cephulac] 20 gm PO BID 11/28/24 11/28/24 History Saxagliptin HCl 5 mg PO DAILY 11/28/24 11/28/24 History oxyCODONE-APAP 7.5-325MG [Percocet 1 tab PO Q4H PRN 11/28/24 11/28/24 History 7.5-325 mg] Allergies Allergy/AdvReac Type Severity Reaction Status Date / Time sulfamethoxazole Allergy Severe joint Verified 11/28/24 08:08 [From Bactrim] pain, aches ciprofloxacin [From Cipro] Allergy joint Verified 11/28/24 08:08 pain, aches lisinopril Allergy joint Verified 11/28/24 08:08 pain, cough trimethoprim [From Bactrim] Allergy joint Verified 11/28/24 08:08 pain, aches NABIL Inhibitors AdvReac Cough Verified 11/28/24 08:08 Physical Exam Vitals: Vital Signs Temp Pulse Pulse Resp BP BP Pulse Ox 11/29/24 12:24 98.2 F 82 16 126/65 97 11/29/24 07:11 97.8 F 77 16 119/70 100 11/29/24 01:22 98.1 F 75 16 116/59 100 11/28/24 20:40 97.7 F 81 16 113/51 98 11/28/24 20:09 82 18 110/70 97 Intake and Output 11/29/24 11/29/24 11/29/24 06:59 14:59 22:59 Intake Total 200 540 Balance 200 540 Intake: Intake, IV Titration 200 Amount Cefepime 2 gm In Sodium 200 Chloride 0.9% 100 ml @ 25 mls/hr IVPB Q8H [facility] Rx#: [id number] Oral 540 Other: Voiding Method Urinal # Voids 3 2 0 - Constitutional General appearance: average body habitus, no acute distress - EENT Eyes: anicteric sclerae, EOMI ENT: hearing grossly normal - Respiratory Respiratory: bilateral: CTA - Cardiovascular Rhythm: regular - Gastrointestinal General gastrointestinal: soft, no tenderness - Psychiatric Psychiatric: A&O x's 3 Results CBC & Chem 7: 11/29/24 09:51 11/28/24 05:12 Labs: Abnormal Lab Results - Last 24 Hours (Table) 11/29/24 11/29/24 11/29/24 Range/Units 07:14 09:51 12:30 RBC 2.39 L (4.40-5.60) 10*6/uL Hgb 7.5 L (13.0-17.0) g/dL Hct 23.3 L (39.6-50.0) % MCV 97.5 H (80.0-97.0) fL RDW 17.2 H (11.5-14.5) % MPV 8.8 L (9.5-12.2) fL Immature Gran # 0.09 H (0.00-0.04) 10*3/uL Lymphocytes # 0.67 L (0.90-5.00) 10*3/uL POC Glucose (mg/dL) 130 H 211 H (70-110) mg/dL 11/29/24 Range/Units 17:06 RBC (4.40-5.60) 10*6/uL Hgb (13.0-17.0) g/dL Hct (39.6-50.0) % MCV (80.0-97.0) fL RDW (11.5-14.5) % MPV (9.5-12.2) fL Immature Gran # (0.00-0.04) 10*3/uL Lymphocytes # (0.90-5.00) 10*3/uL POC Glucose (mg/dL) 136 H (70-110) mg/dL Venous US: report reviewed Assessment and Plan (1) Anemia Current Visit: Yes Status: Acute Code(s): D64.9 - ANEMIA, UNSPECIFIED SNOMED Code(s): 687049287 (2) Foot osteomyelitis, left Current Visit: Yes Status: Acute Code(s): M86.9 - OSTEOMYELITIS, UNSPECIFIED SNOMED Code(s): 2306111753588445 (3) Wound of left foot Current Visit: Yes Status: Acute Code(s): S91.302A - UNSPECIFIED OPEN WOUND, LEFT FOOT, INITIAL ENCOUNTER SNOMED Code(s): 73891613127855556 Plan: Anemia: Presented from rehab for low hgb. Had amputation of left toes/metatarsals last month and was on wound VAC and IV antibiotics for osteomyelitis. He also u nderwent graft for arterial occlusion of left lower extremity. On antiplatelet therapy with Plavix and aspirin. Patient states wound VAC was producing bloody output which he believes caused anemia. Denies previous history of anemia. Patient states 3 days ago he had darker stools, unsure if they were black/tarry. -On admit hemoglobin is noted at 5.8, MCV 98.9. WBC 6.8, platelets 320,000. S/p 2 units PRBCs with appropriate response with hemoglobin today 7.5. -Nutritional studies showed iron saturation 27% and ferritin 56.7, however these were obtained after 1 unit PRBCs. Vitamin B12 274 and folate 24.9. Patient has been started on IV iron, IM vitamin B12 and folate. -Due to osteomyelitis, will hold IV iron and start oral iron. Continue Vit B12 and folate -Surgery consulted for endoscopic evaluation -Continue to monitor CBC. Transfuse for hgb less lara 7 or if symptomatic Doctor attests: I performed a history and physical examination of this patient, developed impression and plan of care. Discussed with dictator. I agree with dictators note, documented as a scribe.
[2024-11-29 21:24] LABS: Glucose,Whole Blood 171 mg/dL (70-110)
[2024-11-30 07:06] LABS: Glucose,Whole Blood 130 mg/dL (70-110)
[2024-11-30] MEDS: FERROUS SULFATE 325 MG TAB PO SCH (08:36)
[2024-11-30 09:34] LABS: Basophils # (A) 0.04 10*3/uL (0.00-0.10); Basophils % (A) 0.8 %; Eosinophils # (A) 0.21 10*3/uL (0.04-0.35); Eosinophils % (A) 4.1 %; HCT 23.8 % (39.6-50.0); HGB 7.5 g/dL (13.0-17.0); Lymphocytes # (A) 0.78 10*3/uL (0.90-5.00); Lymphocytes % (A) 15.3 %; MCHC 31.5 g/dL (32.0-37.0); MCV 98.3 fL (80.0-97.0); Mean Platelet Volume 8.6 fL (9.5-12.2); Monocytes # (A) 0.46 10*3/uL (0.20-1.00); Neutrophils # (A) 3.55 10*3/uL (1.80-7.70); Neutrophils % (A) 69.6 %; Platelet Count 276 10*3/uL (140-440); RBC 2.42 10*6/uL (4.40-5.60)
--- NOTE | 2024-11-30 11:14 | P.GSCN ---
History of Present Illness Consult date: 11/30/24 Reason for Consult: Anemia History of present illness: This is 74-year-old male who admitted to the hospital complaints of anemia. Patient is currently resting in the bed without any significant complaints. Past Medical History Past Medical History: Diabetes Mellitus, Deep Vein Thrombosis (DVT), Eye D isorder, GERD/Reflux, Hyperlipidemia, Hypertension, Prostate Disorder Additional Past Medical History / Comment(s): L foot osteomylitis, DJD, DVT R leg, R eye macular degeneration, BPH, benign colon polyps. History of Any Multi-Drug Resistant Organisms: MRSA Year Discovered:: 06/19/21 MDRO Source:: MRSA TOE Past Surgical History: Orthopedic Surgery, Tonsillectomy Additional Past Surgical History / Comment(s): L great toe amputation, L 2nd toe "bones disconnected", colonoscopy with polypectomy, bilateral cataract removals, 3rd/4th/5th digit on left foot removed, L fem/pop Past Anesthesia/Blood Transfusion Reactions: No Reported Reaction Past Psychological History: No Psychological Hx Reported Additional Psychological History / Comment(s): Pt resides alone. He is in dependent. Smoking Status: Current every day smoker Past Alcohol Use History: None Reported Additional Past Alcohol Use History / Comment(s): 1PPD SINCE AGE 10 Past Drug Use History: None Reported - Past Family History Father History Unknown: Yes Family Medical History: No Reported History Mother Family Medical History: No Reported History Additional Family Medical History / Comment(s): Mother was healthy Medications and Allergies Home Medications Medication Instructions Recorded Confirmed Type metFORMIN HCL [Glucophage] 1,000 mg PO BID 12/23/16 11/28/24 History Aspirin [Adult Low Dose Aspirin EC] 81 mg PO DAILY 11/01/17 11/28/24 History Cholecalciferol [Vitamin D3 (25 50 mcg PO DAILY 06/17/21 11/28/24 History Mcg = 1000 Iu)] Podofilox 1 applic TOPICAL DAILY 10/03/24 11/28/24 History glipiZIDE [Glucotrol] 10 mg PO BID 10/03/24 11/28/24 History Gabapentin [Neurontin] 300 mg PO TID 30 Days #90 cap 10/08/24 11/28/24 Rx cilostazoL [Pletal] 100 mg PO BID #60 tab 10/08/24 11/28/24 Rx Ascorbic Acid [Vitamin C] 1,000 mg PO DAILY #30 tablet 10/15/24 11/28/24 Rx Ferrous Sulfate [Iron (65 MG 325 mg PO DAILY #30 tab 10/15/24 11/28/24 Rx Elemental)] Folic Acid 1 mg PO DAILY #30 tab 10/15/24 11/28/24 Rx Tamsulosin HCl [Flomax] 0.8 mg PO HS #30 cap 10/15/24 11/28/24 Rx Multivitamins, Thera [Multivitamin 1 tab PO DAILY 10/17/24 11/28/24 History (formulary)] Cefepime [Maxipime] 2 gm IVPB Q8HR each 11/05/24 11/28/24 Rx Clopidogrel [Plavix] 75 mg PO DAILY #90 tab 11/05/24 11/28/24 Rx 0.9 % Sodium Chloride [Sodium 10 ml IV Q8H 11/28/24 11/28/24 History Chloride Flush] Atorvastatin [Lipitor] 80 mg PO HS 11/28/24 11/28/24 History Empagliflozin [Jardiance] 25 mg PO DAILY 11/28/24 11/28/24 History Lactulose [Cephulac] 20 gm PO BID 11/28/24 11/28/24 History Saxagliptin HCl 5 mg PO DAILY 11/28/24 11/28/24 History oxyCODONE-APAP 7.5-325MG [Percocet 1 tab PO Q4H PRN 11/28/24 11/28/24 History 7.5-325 mg] Allergies Allergy/AdvReac Type Severity Reaction Status Date / Time sulfamethoxazole Allergy Severe joint Verified 11/28/24 08:08 [From Bactrim] pain, aches ciprofloxacin [From Cipro] Allergy joint Verified 11/28/24 08:08 pain, aches lisinopril Allergy joint Verified 11/28/24 08:08 pain, cough trimethoprim [From Bactrim] Allergy joint Verified 11/28/24 08:08 pain, aches NABIL Inhibitors AdvReac Cough Verified 11/28/24 08:08 Surgical - Exam Vital Signs Temp Pulse Resp BP Pulse Ox 97.9 F 98 18 112/57 100 11/27/24 19:34 11/27/24 19:34 11/27/24 19:34 11/27/24 19:34 11/27/24 19:34 - General well developed, well nourished, no distress - Eyes PERRL - ENT normal pinna - Neck no masses - Respiratory normal expansion - Cardiovascular Rhythm: regular Results - Labs 11/30/24 09:15 11/28/24 05:12 Abnormal Lab Results - Last 24 Hours (Table) 11/29/24 11/29/24 11/29/24 Range/Units 12:30 17:06 21:23 RBC (4.40-5.60) 10*6/uL Hgb (13.0-17.0) g/dL Hct (39.6-50.0) % MCV (80.0-97.0) fL MCHC (32.0-37.0) g/dL RDW (11.5-14.5) % MPV (9.5-12.2) fL Immature Gran # (0.00-0.04) 10*3/uL Lymphocytes # (0.90-5.00) 10*3/uL POC Glucose (mg/dL) 211 H 136 H 171 H (70-110) mg/dL 11/30/24 11/30/24 Range/Units 07:05 09:15 RBC 2.42 L (4.40-5.60) 10*6/uL Hgb 7.5 L (13.0-17.0) g/dL Hct 23.8 L (39.6-50.0) % MCV 98.3 H (80.0-97.0) fL MCHC 31.5 L (32.0-37.0) g/dL RDW 17.0 H (11.5-14.5) % MPV 8.6 L (9.5-12.2) fL Immature Gran # 0.06 H (0.00-0.04) 10*3/uL Lymphocytes # 0.78 L (0.90-5.00) 10*3/uL POC Glucose (mg/dL) 130 H (70-110) mg/dL Assessment and Plan Assessment: EMEA. Patient undergo EGD and colonoscopy on Monday.
[2024-11-30 12:09] LABS: Glucose,Whole Blood 213 mg/dL (70-110)
--- NOTE | 2024-11-30 13:07 | P.PN ---
Subjective Progress Note Date: 11/30/24 Patient was seen and examined. He reports burning pain in his left calf. No complaints otherwise. CBC and BMP significant for RBC 2.23, Hg 7.1, Hct 21.4, Na 136. Retic count 5.49. Haptoglobin 284. 11/29 Patient seen and examined at bedside. Complains of pain in his left lower leg. Left foot wound was dressed last night. Vitals are stable this morning. Remains on Cefepime. Hemoglobin 7.5 (up from 7.1) ,Iron 68. TIBC 251, Ferritin 56.7, retic count 5.49%, haptoglobin 284, sodium 136, creatinine 0.69 11/30 Patient examined at bedside. Complains of pain in the left leg. Overall is doing well. Continued on Cefepime. Hemoglobin stable at 7.4 today. General: non toxic, no distress, appears at stated age Derm: warm, dry Head: atraumatic, normocephalic, symmetric Eyes: EOMI, no lid lag, anicteric sclera Mouth: no lip lesion, mucus membranes moist Cardiovascular: S1S2 reg, no murmur Lungs: Clear to auscultation bilaterally, no rhonchi, no rales , no accessory muscle use Ext: no gross muscle atrophy, no edema, L TMA, wrapped in bandages, foul odour Neuro: No focal neurologic deficits. Based on my assessment of this patient, this patient meets a high complexity level of care. Macrocytic anemia: Multifactorial. Acute blood loss from TMA on 10/31. Iron studies 10/2024 showed Fe 9, % sat 6.08, Ferritin 338, now have improved post iron infusions. B12 206. Folate 7.70. Hold ASA, Cilostazol and Plavix for now. Pending stool occult. continue ferric gluconate 125 mg PO QD. continue cyanocobalamin 1000 mcg IM QD. Continue Folic acid 1mg PO QD. Hematology following. Surgery on board, plan for EGD/colonoscopy on Monday Left foot OM status post status post transmetatarsal amputation and debridement: Continue Cefepime 2g IV TID (plan for 6 weeks of IV therapy). Pain management with Percocet 10 Q4H PRN + Gabapentin 400 mg PO TID. Wound care consulted. PAD s/p left common femoral thromboendarterectomy with left femoral to popliteal bypass: Holding ASA, plavix due to anemia. Continue statin [id number] type 2 diabetes mellitus: ISS + Accuchecks ACHS along with hypoglycemic precautions. History of DVT not currently on anticoagulation, Duplex US 11/28 negative for DVT Enlarged left inguinal lymph node: Could be reactive to recent femoral bypass, will need to be followed up o/p with repeat imaging Hyperlipidemia: Lipitor 80 mg PO QHS. BPH: Flomax 0.8 mg PO QHS. Chronic tobacco use Peripheral neuropathy: Pain management as above. CODE STATUS: FULL CODE DVT Prophylaxis: SCD, holding AC due to anemia GI Prophylaxis: Designated medical POA if patient is not able to make medical decisions for themselves: I have reviewed the following distributor sales consultant notes: Surgery I have reviewed the results of the following tests: CBC I have ordered the following tests: CBC, CMP I have discussed the care of this patient with the following independent historian: DUSTIN. I have independently interpreted the following test below: I have discussed the management of this patient with the following physician: Objective - Vital Signs Vital signs: Vital Signs Temp 98.0 F 11/30/24 12:36 Pulse 72 11/30/24 12:36 Resp 14 11/30/24 12:36 BP 128/64 11/30/24 12:36 Pulse Ox 99 11/30/24 12:36 FiO2 Intake & Output 11/29/24 11/30/24 11/30/24 18:59 06:59 18:59 Intake Total 540 590 480 Output Total 1100 Balance 540 -510 480 Intake: Oral 540 590 480 Output: Urine 1100 Other: Voiding Method Urinal Urinal # Voids 0 - Labs CBC & Chem 7: 11/30/24 09:15 11/28/24 05:12 Labs: Abnormal Lab Results - Last 24 Hours (Table) 11/29/24 11/29/24 11/30/24 Range/Units 17:06 21:23 07:05 RBC (4.40-5.60) 10*6/uL Hgb (13.0-17.0) g/dL Hct (39.6-50.0) % MCV (80.0-97.0) fL MCHC (32.0-37.0) g/dL RDW (11.5-14.5) % MPV (9.5-12.2) fL Immature Gran # (0.00-0.04) 10*3/uL Lymphocytes # (0.90-5.00) 10*3/uL POC Glucose (mg/dL) 136 H 171 H 130 H (70-110) mg/dL 11/30/24 11/30/24 Range/Units 09:15 12:08 RBC 2.42 L (4.40-5.60) 10*6/uL Hgb 7.5 L (13.0-17.0) g/dL Hct 23.8 L (39.6-50.0) % MCV 98.3 H (80.0-97.0) fL MCHC 31.5 L (32.0-37.0) g/dL RDW 17.0 H (11.5-14.5) % MPV 8.6 L (9.5-12.2) fL Immature Gran # 0.06 H (0.00-0.04) 10*3/uL Lymphocytes # 0.78 L (0.90-5.00) 10*3/uL POC Glucose (mg/dL) 213 H (70-110) mg/dL
[2024-11-30 17:21] LABS: Glucose,Whole Blood 211 mg/dL (70-110)
[2024-11-30 20:24] LABS: Glucose,Whole Blood 151 mg/dL (70-110)
[2024-12-01 07:39] LABS: Glucose,Whole Blood 136 mg/dL (70-110)
[2024-12-01 08:40] LABS: Basophils # (A) 0.05 10*3/uL (0.00-0.10); Basophils % (A) 0.8 %; Eosinophils # (A) 0.28 10*3/uL (0.04-0.35); Eosinophils % (A) 4.6 %; HCT 26.2 % (39.6-50.0); HGB 8.3 g/dL (13.0-17.0); Lymphocytes # (A) 0.89 10*3/uL (0.90-5.00); Lymphocytes % (A) 14.6 %; MCH 31.2 pg (27.0-32.0); MCHC 31.7 g/dL (32.0-37.0); MCV 98.5 fL (80.0-97.0); Monocytes # (A) 0.57 10*3/uL (0.20-1.00); Monocytes % (A) 9.3 %; Neutrophils # (A) 4.24 10*3/uL (1.80-7.70); Neutrophils % (A) 69.6 %; Platelet Count 303 10*3/uL (140-440); RBC 2.66 10*6/uL (4.40-5.60); RDW 16.8 % (11.5-14.5)
[2024-12-01 08:53] LABS: ALT 15 U/L (4-49); AST 15 U/L (17-59); African American GFR (CKD) >90 (>60 ml/min/1.73 sqM); Albumin 3.3 g/dL (3.5-5.0); Albumin/Globulin Ratio 1.2; Alkaline Phosphatase 110 U/L (38-126); Anion Gap 5 mmol/L; Blood Urea Nitrogen 14 mg/dL (9-20); Calcium 8.8 mg/dL (8.4-10.2); Carbon Dioxide 26 mmol/L (22-30); Chloride 103 mmol/L (98-107); Globulin 2.8 g/dL; Glucose 146 mg/dL (74-99); Non-African American GFR(CKD) 89 (>60 ml/min/1.73 sqM); Potassium 4.7 mmol/L (3.5-5.1); Sodium 134 mmol/L (137-145); Total Bilirubin 0.3 mg/dL (0.2-1.3); Total Protein 6.1 g/dL (6.3-8.2)
--- NOTE | 2024-12-01 09:53 | P.PN ---
Progress Note - Text Progress Note Date: 12/01/24 Patient willis anemic. He states he has had no evidence of evidence of GI bleed. On exam vital signs appear stable. Abdomen soft. Patient to be scheduled for EGD and colonoscopy in AM.
[2024-12-01] MEDS: PEG 3350 (236 GM/BTL) + LYTES 4,000 ML BOTTLE PO ONE (10:40)
[2024-12-01 12:20] LABS: Glucose,Whole Blood 198 mg/dL (70-110)
--- NOTE | 2024-12-01 12:27 | P.PN ---
Subjective Progress Note Date: 12/01/24 Principal diagnosis: anemia Patient was seen and examined. He reports burning pain in his left calf. No complaints otherwise. CBC and BMP significant for RBC 2.23, Hg 7.1, Hct 21.4, Na 136. Retic count 5.49. Haptoglobin 284. 11/29 Patient seen and examined at bedside. Complains of pain in his left lower leg. Left foot wound was dressed last night. Vitals are stable this morning. Remains on Cefepime. Hemoglobin 7.5 (up from 7.1) ,Iron 68. TIBC 251, Ferritin 56.7, retic count 5.49%, haptoglobin 284, sodium 136, creatinine 0.69 11/30 Patient examined at bedside. Complains of pain in the left leg. Overall is doing well. Continued on Cefepime. Hemoglobin stable at 7.4 today. 12/01 Patient examined at bedside. States pain in his leg is improved. Dressing will be changed today. Wound care has not yet seen the patient. Vitals stable overnight. WBC 6.10, Hemoglobin 8.3, sodium 134, potassium 4.7, creatinine 0.76. General: non toxic, no distress, appears at stated age Derm: warm, dry Head: atraumatic, normocephalic, symmetric Eyes: EOMI, no lid lag, anicteric sclera Mouth: no lip lesion, mucus membranes moist Cardiovascular: S1S2 reg, no murmur Lungs: Clear to auscultation bilaterally, no rhonchi, no rales , no accessory muscle use Ext: no gross muscle atrophy, no edema, L TMA, wrapped in bandages, foul odour Neuro: No focal neurologic deficits. Based on my assessment of this patient, this patient meets a high complexity level of care. Macrocytic anemia: Multifactorial. Acute blood loss from TMA on 10/31. Iron studies 10/2024 showed Fe 9, % sat 6.08, Ferritin 338, now have improved post iron infusions. B12 206. Folate 7.70. Hold ASA, Cilostazol and Plavix for now. Pending stool occult. continue ferric gluconate 125 mg PO QD. continue cyanocobalamin 1000 mcg IM QD. Continue Folic acid 1mg PO QD. Hematology following. Surgery on board, plan for EGD/colonoscopy on Monday, prep ordered. Left foot OM status post status post transmetatarsal amputation and debridement: Continue Cefepime 2g IV TID (plan for 6 weeks of IV therapy). Pain management with Percocet 10 Q4H PRN + Gabapentin 400 mg PO TID. Wound care consulted. PAD s/p left common femoral thromboendarterectomy with left femoral to popliteal bypass: Holding ASA, plavix due to anemia. Continue statin [id number] type 2 diabetes mellitus: ISS + Accuchecks ACHS along with hypoglycemic precautions. History of DVT not currently on anticoagulation, Duplex US 11/28 negative for DVT Enlarged left inguinal lymph node: Could be reactive to recent femoral bypass, will need to be followed up o/p with repeat imaging Hyperlipidemia: Lipitor 80 mg PO QHS. BPH: Flomax 0.8 mg PO QHS. Chronic tobacco use Peripheral neuropathy: Pain management as above. CODE STATUS: FULL CODE DVT Prophylaxis: SCD, holding AC due to anemia GI Prophylaxis: Designated medical POA if patient is not able to make medical decisions for themselves: I have reviewed the following securities consultant notes: Surgery I have reviewed the results of the following tests: CBC, CMP I have ordered the following tests: CBC, CMP I have discussed the care of this patient with the following independent historian: DUSTIN. I have independently interpreted the following test below: I have discussed the management of this patient with the following physician: Objective - Vital Signs Vital signs: Vital Signs Temp 97.8 F 12/01/24 07:39 Pulse 69 12/01/24 07:39 Resp 16 12/01/24 07:39 BP 116/65 12/01/24 07:39 Pulse Ox 99 12/01/24 07:39 FiO2 Intake & Output 11/30/24 12/01/24 12/01/24 18:59 06:59 18:59 Intake Total 1440 400 480 Output Total 1200 650 Balance 240 -250 480 Intake: Oral 1440 400 480 Output: Urine 1200 650 Other: Voiding Method Urinal - Labs CBC & Chem 7: 12/01/24 08:16 12/01/24 08:16 Labs: Abnormal Lab Results - Last 24 Hours (Table) 11/30/24 11/30/24 12/01/24 Range/Units 17:16 20:23 07:39 RBC (4.40-5.60) 10*6/uL Hgb (13.0-17.0) g/dL Hct (39.6-50.0) % MCV (80.0-97.0) fL MCHC (32.0-37.0) g/dL RDW (11.5-14.5) % MPV (9.5-12.2) fL Immature Gran # (0.00-0.04) 10*3/uL Lymphocytes # (0.90-5.00) 10*3/uL Sodium (137-145) mmol/L Glucose (74-99) mg/dL POC Glucose (mg/dL) 211 H 151 H 136 H (70-110) mg/dL AST (17-59) U/L Total Protein (6.3-8.2) g/dL Albumin (3.5-5.0) g/dL 12/01/24 12/01/24 12/01/24 Range/Units 08:16 08:16 12:19 RBC 2.66 L (4.40-5.60) 10*6/uL Hgb 8.3 L (13.0-17.0) g/dL Hct 26.2 L (39.6-50.0) % MCV 98.5 H (80.0-97.0) fL MCHC 31.7 L (32.0-37.0) g/dL RDW 16.8 H (11.5-14.5) % MPV 9.0 L (9.5-12.2) fL Immature Gran # 0.07 H (0.00-0.04) 10*3/uL Lymphocytes # 0.89 L (0.90-5.00) 10*3/uL Sodium 134 L (137-145) mmol/L Glucose 146 H (74-99) mg/dL POC Glucose (mg/dL) 198 H (70-110) mg/dL AST 15 L (17-59) U/L Total Protein 6.1 L (6.3-8.2) g/dL Albumin 3.3 L (3.5-5.0) g/dL
[2024-12-01 16:48] LABS: Glucose,Whole Blood 152 mg/dL (70-110)
[2024-12-01 20:23] LABS: Glucose,Whole Blood 139 mg/dL (70-110)
[2024-12-02 07:02] LABS: Glucose,Whole Blood 120 mg/dL (70-110)
[2024-12-02 08:11] LABS: Basophils # (A) 0.03 X 10*3/uL (0.00-0.10); Basophils % (A) 0.5 %; Eosinophils # (A) 0.18 X 10*3/uL (0.04-0.35); HCT 24.7 % (39.6-50.0); HGB 7.7 g/dL (13.0-17.0); Lymphocytes # (A) 0.77 X 10*3/uL (0.90-5.00); Lymphocytes % (A) 12.8 %; MCH 30.6 pg (27.0-32.0); MCHC 31.2 g/dL (32.0-37.0); Mean Platelet Volume 9.3 FL (9.5-12.2); Monocytes # (A) 0.59 X 10*3/uL (0.20-1.00); Monocytes % (A) 9.8 %; NRBC Per 100 WBC 0 X 10*3/uL (0.00-0.01); Neutrophils # (A) 4.42 X 10*3/uL (1.80-7.70); Neutrophils % (A) 73.2 %; Platelet Count 307 X 10*3/uL (140-440); RBC 2.52 X 10*6/uL (4.40-5.60); RDW 16.8 % (11.5-14.5); WBC 6.03 X 10*3/uL (4.50-10.00)
[2024-12-02 08:12] LABS: Blood Urea Nitrogen 9.8 mg/dL (9.0-27.0); Carbon Dioxide 27.2 mmol/L (21.6-31.8); Chloride 104 mmol/L (96-109); Glucose 109 mg/dL (70-110); Potassium 4.7 mmol/L (3.5-5.5); Sodium 140 mmol/L (135-145)
[2024-12-02 08:13] LABS: ALT 13 U/L (10-49); AST 13 U/L (14-35); Albumin 3.2 g/dL (3.8-4.9); Albumin/Globulin Ratio 1.45 Ratio (1.60-3.17); Alkaline Phosphatase 115 U/L (41-126); Calcium 8.3 mg/dL (8.7-10.3); Globulin 2.2 g/dL (1.6-3.3); Total Bilirubin 0.2 mg/dL (0.3-1.2); Total Protein 5.4 g/dL (6.2-8.2)
[2024-12-02 12:05] LABS: Glucose,Whole Blood 98 mg/dL (70-110)
--- NOTE | 2024-12-02 12:11 | P.PN ---
Subjective Progress Note Date: 12/02/24 SURGICAL PROGRESS NOTE CHIEF COMPLAINT: Anemia HISTORY OF PRESENT ILLNESS: No new complaints. Vital stable. Hemoglobin 9.7 magnesium 1.4 PHYSICAL EXAM: VITAL SIGNS: Reviewed. GENERAL: Well-developed in no acute distress. ABDOMEN: Soft. Nondistended. Nontender. NEUROLOGIC: Alert and oriented. Cranial nerves II through XII grossly intact. ASSESSMENT: 1. Anemia 2. Hypomagnesemia PLAN: - Patient scheduled for EGD and colonoscopy today with Dr. Santana - Magnesium being replaced Physician Hoisting Engineer note has been reviewed by physician. Signing provider agrees with the documented findings, assessment, and plan of care. Objective - Vital Signs Vital signs: Vital Signs Temp 98.3 F 12/02/24 08:00 Pulse 74 12/02/24 08:00 Resp 20 12/02/24 08:00 BP 107/56 12/02/24 08:00 Pulse Ox 94 L 12/02/24 08:00 FiO2 Intake & Output 12/01/24 12/02/24 12/02/24 18:59 06:59 18:59 Intake Total 1440 Output Total 1200 725 400 Balance 240 -725 -400 Intake: Oral 1440 Output: Urine 1200 725 400 Other: Voiding Method Urinal # Bowel Movements 3 - Labs CBC & Chem 7: 12/02/24 04:48 12/02/24 04:48 Labs: Abnormal Lab Results - Last 24 Hours (Table) 12/01/24 12/01/24 12/01/24 Range/Units 12:19 16:46 20:20 RBC (4.40-5.60) X 10*6/uL Hgb (13.0-17.0) g/dL Hct (39.6-50.0) % MCV (80.0-97.0) FL MCHC (32.0-37.0) g/dL RDW (11.5-14.5) % MPV (9.5-12.2) FL Lymphocytes # (0.90-5.00) X 10*3/uL POC Glucose (mg/dL) 198 H 152 H 139 H (70-110) mg/dL Calcium (8.7-10.3) mg/dL Total Bilirubin (0.3-1.2) mg/dL AST (14-35) U/L Total Protein (6.2-8.2) g/dL Albumin (3.8-4.9) g/dL Albumin/Globulin Ratio (1.60-3.17) Ratio 12/02/24 12/02/24 12/02/24 Range/Units 04:48 04:48 07:00 RBC 2.52 L (4.40-5.60) X 10*6/uL Hgb 7.7 L (13.0-17.0) g/dL Hct 24.7 L (39.6-50.0) % MCV 98.0 H (80.0-97.0) FL MCHC 31.2 L (32.0-37.0) g/dL RDW 16.8 H (11.5-14.5) % MPV 9.3 L (9.5-12.2) FL Lymphocytes # 0.77 L (0.90-5.00) X 10*3/uL POC Glucose (mg/dL) 120 H (70-110) mg/dL Calcium 8.3 L (8.7-10.3) mg/dL Total Bilirubin 0.2 L (0.3-1.2) mg/dL AST 13 L (14-35) U/L Total Protein 5.4 L (6.2-8.2) g/dL Albumin 3.2 L (3.8-4.9) g/dL Albumin/Globulin Ratio 1.45 L (1.60-3.17) Ratio
[2024-12-02] MEDS ORDERED: PROPOFOL 10 MG/ML 20 ML VIAL IV ONE (14:35)
[2024-12-02] MEDS: IV FLUID CONTINUATION 1,000 ML IV ONE (14:53)
--- NOTE | 2024-12-02 14:55 | P.OP ---
Date of Procedure: 12/02/24 Preoperative Diagnosis: Anemia, GI bleed Postoperative Diagnosis: Antral gastritis Poor colon prep Procedure(s) Performed: EGD Anesthesia: MAC Surgeon: Sha Santana Pathology: other (Antrum) Condition: stable Disposition: PACU Description of Procedure: Patient was placed on the endoscopy table in the lateral position. He received IV sedation. The Gastroflux oropharynx passed in the esophagus of the stomach. Scope was placed through the pylorus. The first second portion of the duodenum appeared normal. Scope was then brought back to the antrum and this appeared mildly Flaim. A biopsy was performed. The scope was then retroflexed and the Mainer of the stomach appeared normal. The GE junction was at 40 cm. The distal esophagus appeared normal. The proximal esophagus provokers would have the patient. There is no evidence of any upper GI bleed. Next digital rectal exam is performed. There is a large amount of brown liquid stool. The colonoscope was placed in the patient's anus and into the rectum. There is a large amount of stool which prevented the colonoscopy from being per formed. This point scope withdrawn. The patient will be reprepped for colonoscopy.
[2024-12-02 16:59] LABS: Glucose,Whole Blood 247 mg/dL (70-110)
--- NOTE | 2024-12-02 19:55 | P.PN ---
Subjective Progress Note Date: 12/02/24 Principal diagnosis: anemia Patient was seen and examined. He reports burning pain in his left calf. No complaints otherwise. CBC and BMP significant for RBC 2.23, Hg 7.1, Hct 21.4, Na 136. Retic count 5.49. Haptoglobin 284. 11/29 Patient seen and examined at bedside. Complains of pain in his left lower leg. Left foot wound was dressed last night. Vitals are stable this morning. Remains on Cefepime. Hemoglobin 7.5 (up from 7.1) ,Iron 68. TIBC 251, Ferritin 56.7, retic count 5.49%, haptoglobin 284, sodium 136, creatinine 0.69 11/30 Patient examined at bedside. Complains of pain in the left leg. Overall is doing well. Continued on Cefepime. Hemoglobin stable at 7.4 today. 12/01 Patient examined at bedside. States pain in his leg is improved. Dressing will be changed today. Wound care has not yet seen the patient. Vitals stable overnight. WBC 6.10, Hemoglobin 8.3, sodium 134, potassium 4.7, creatinine 0.76. 12/02 Patient examined at bedside. Feeling better, pain is controlled. Pending EGD/colonoscopy. Awaiting wound care evaluation for wound on left foot. Hemoglobin 7.7 this morning. General: non toxic, no distress, appears at stated age Derm: warm, dry Head: atraumatic, normocephalic, symmetric Eyes: EOMI, no lid lag, anicteric sclera Mouth: no lip lesion, mucus membranes moist Cardiovascular: S1S2 reg, no murmur Lungs: Clear to auscultation bilaterally, no rhonchi, no rales , no accessory muscle use Ext: no gross muscle atrophy, no edema, L TMA, wrapped in bandages, foul odour Neuro: No focal neurologic deficits. Based on my assessment of this patient, this patient meets a high complexity level of care. Macrocytic anemia: Multifactorial. Acute blood loss from TMA on 10/31. Iron studies 10/2024 showed Fe 9, % sat 6.08, Ferritin 338, now have improved post iron infusions. B12 206. Folate 7.70. Hold ASA, Cilostazol and Plavix for now. Pending stool occult. continue ferric gluconate 125 mg PO QD. continue cyanocobalamin 1000 mcg IM QD. Continue Folic acid 1mg PO QD. Hematology following. Surgery on board, plan for EGD/colonoscopy today Left foot OM status post status post transmetatarsal amputation and debridement: Continue Cefepime 2g IV TID (plan for 6 weeks of IV therapy). Pain management with Percocet 10 Q4H PRN + Gabapentin 400 mg PO TID. Wound care consulted. Will likely need wound vac placed again. Consider ID consult if no improvement. Check inflammatory markers. PAD s/p left common femoral thromboendarterectomy with left femoral to popliteal bypass: Holding ASA, plavix due to anemia. Continue statin [id number] type 2 diabetes mellitus: ISS + Accuchecks ACHS along with hypoglycemic precautions. History of DVT not currently on anticoagulation, Duplex US 11/28 negative for DVT Enlarged left inguinal lymph node: Could be reactive to recent femoral bypass, will need to be followed up o/p with repeat imaging Hyperlipidemia: Lipitor 80 mg PO QHS. BPH: Flomax 0.8 mg PO QHS. Chronic tobacco use Peripheral neuropathy: Pain management as above. CODE STATUS: FULL CODE DVT Prophylaxis: SCD, holding AC due to anemia GI Prophylaxis: Designated medical POA if patient is not able to make medical decisions for emselves: I have reviewed the following sustainability consultant notes: Surgery I have reviewed the results of the following tests: CBC I have ordered the following tests: CBC, CMP, ESR, CRP I have discussed the care of this patient with the following independent historian: DUSTIN. I have independently interpreted the following test below: I have discussed the management of this patient with the following physician: Objective - Vital Signs Vital signs: Vital Signs Temp 98 F 12/02/24 15:26 Pulse 80 12/02/24 15:26 Resp 17 12/02/24 15:26 BP 118/60 12/02/24 15:26 Pulse Ox 96 12/02/24 12:50 FiO2 Intake & Output 12/02/24 12/02/24 12/03/24 06:59 18:59 06:59 Intake Total 300 Output Total 725 400 Balance -725 -100 Intake: IV 300 Output: Urine 725 400 Other: Voiding Method Urinal # Voids 1 - Labs CBC & Chem 7: 12/02/24 04:48 12/02/24 04:48 Labs: Abnormal Lab Results - Last 24 Hours (Table) 12/01/24 12/02/24 12/02/24 Range/Units 20:20 04:48 04:48 RBC 2.52 L (4.40-5.60) X 10*6/uL Hgb 7.7 L (13.0-17.0) g/dL Hct 24.7 L (39.6-50.0) % MCV 98.0 H (80.0-97.0) FL MCHC 31.2 L (32.0-37.0) g/dL RDW 16.8 H (11.5-14.5) % MPV 9.3 L (9.5-12.2) FL Lymphocytes # 0.77 L (0.90-5.00) X 10*3/uL POC Glucose (mg/dL) 139 H (70-110) mg/dL Calcium 8.3 L (8.7-10.3) mg/dL Total Bilirubin 0.2 L (0.3-1.2) mg/dL AST 13 L (14-35) U/L Total Protein 5.4 L (6.2-8.2) g/dL Albumin 3.2 L (3.8-4.9) g/dL Albumin/Globulin Ratio 1.45 L (1.60-3.17) Ratio 12/02/24 12/02/24 Range/Units 07:00 16:57 RBC (4.40-5.60) X 10*6/uL Hgb (13.0-17.0) g/dL Hct (39.6-50.0) % MCV (80.0-97.0) FL MCHC (32.0-37.0) g/dL RDW (11.5-14.5) % MPV (9.5-12.2) FL Lymphocytes # (0.90-5.00) X 10*3/uL POC Glucose (mg/dL) 120 H 247 H (70-110) mg/dL Calcium (8.7-10.3) mg/dL Total Bilirubin (0.3-1.2) mg/dL AST (14-35) U/L Total Protein (6.2-8.2) g/dL Albumin (3.8-4.9) g/dL Albumin/Globulin Ratio (1.60-3.17) Ratio
[2024-12-02 20:30] LABS: Glucose,Whole Blood 312 mg/dL (70-110)
[2024-12-03 06:54] LABS: Basophils # (A) 0.04 10*3/uL (0.00-0.10); Basophils % (A) 0.7 %; Eosinophils # (A) 0.19 10*3/uL (0.04-0.35); Eosinophils % (A) 3.2 %; HGB 8.3 g/dL (13.0-17.0); Lymphocytes # (A) 0.84 10*3/uL (0.90-5.00); MCH 31.4 pg (27.0-32.0); MCHC 31.9 g/dL (32.0-37.0); MCV 98.5 fL (80.0-97.0); Monocytes # (A) 0.68 10*3/uL (0.20-1.00); Monocytes % (A) 11.4 %; Neutrophils # (A) 4.19 10*3/uL (1.80-7.70); Platelet Count 288 10*3/uL (140-440); RBC 2.64 10*6/uL (4.40-5.60); RDW 16.5 % (11.5-14.5); WBC 5.98 10*3/uL (4.50-10.00)
[2024-12-03 07:09] LABS: ALT 13 U/L (4-49); AST 16 U/L (17-59); African American GFR (CKD) >90 (>60 ml/min/1.73 sqM); Albumin 3.1 g/dL (3.5-5.0); Albumin/Globulin Ratio 1.2; Alkaline Phosphatase 115 U/L (38-126); Anion Gap 6 mmol/L; Blood Urea Nitrogen 12 mg/dL (9-20); Calcium 8.7 mg/dL (8.4-10.2); Carbon Dioxide 29 mmol/L (22-30); Chloride 103 mmol/L (98-107); Globulin 2.6 g/dL; Glucose 96 mg/dL (74-99); Non-African American GFR(CKD) >90 (>60 ml/min/1.73 sqM); Potassium 4.6 mmol/L (3.5-5.1); Sodium 138 mmol/L (137-145); Total Bilirubin 0.4 mg/dL (0.2-1.3); Total Protein 5.7 g/dL (6.3-8.2)
[2024-12-03 07:14] LABS: Glucose,Whole Blood 103 mg/dL (70-110)
[2024-12-03 11:57] LABS: Glucose,Whole Blood 229 mg/dL (70-110)
--- NOTE | 2024-12-03 13:28 | P.PN ---
Subjective Progress Note Date: 12/03/24 SURGICAL PROGRESS NOTE CHIEF COMPLAINT: Anemia HISTORY OF PRESENT ILLNESS: Patient has no new complaints. He is complaining of his left foot wound. Patient had EGD completed yesterday that had revealed antral gastritis. Colonoscopy was not completed due to poor bowel prep. Patient reported having brown stools. Hemoglobin stable at 8.3. Patient denies any abdominal pain PHYSICAL EXAM: VITAL SIGNS: Reviewed. GENERAL: Well-developed in no acute distress. ABDOMEN: Soft. Nondistended. Nontender. NEUROLOGIC: Alert and oriented. Cranial nerves II through XII grossly intact. ASSESSMENT: 1. Anemia PLAN: - Continue PPI for gastritis - Patient is refusing colonoscopy at this time - Okay for regular diet Physician Clinical Psychologist Private Practice note has been reviewed by physician. Signing provider agrees with the documented findings, assessment, and plan of care. Objective - Vital Signs Vital signs: Vital Signs Temp 98 F 12/03/24 12:46 Pulse 72 12/03/24 12:46 Resp 16 12/03/24 12:46 BP 113/66 12/03/24 12:46 Pulse Ox 95 12/03/24 12:46 FiO2 Intake & Output 12/02/24 12/03/24 12/03/24 18:59 06:59 18:59 Intake Total 300 Output Total 400 500 Balance -100 -500 Intake: IV 300 Output: Urine 400 500 Other: # Voids 1 - Labs CBC & Chem 7: 12/03/24 06:31 12/03/24 06:31 Labs: Abnormal Lab Results - Last 24 Hours (Table) 12/02/24 12/02/24 12/02/24 Range/Units 04:48 16:57 20:28 RBC (4.40-5.60) 10*6/uL Hgb (13.0-17.0) g/dL Hct (39.6-50.0) % MCV (80.0-97.0) fL MCHC (32.0-37.0) g/dL RDW (11.5-14.5) % MPV (9.5-12.2) fL Lymphocytes # (0.90-5.00) 10*3/uL ESR 35 H (0-20) mm/Hr Creatinine (0.66-1.25) mg/dL POC Glucose (mg/dL) 247 H 312 H (70-110) mg/dL AST (17-59) U/L Total Protein (6.3-8.2) g/dL Albumin (3.5-5.0) g/dL 12/03/24 12/03/24 12/03/24 Range/Units 06:31 06:31 11:56 RBC 2.64 L (4.40-5.60) 10*6/uL Hgb 8.3 L (13.0-17.0) g/dL Hct 26.0 L (39.6-50.0) % MCV 98.5 H (80.0-97.0) fL MCHC 31.9 L (32.0-37.0) g/dL RDW 16.5 H (11.5-14.5) % MPV 9.0 L (9.5-12.2) fL Lymphocytes # 0.84 L (0.90-5.00) 10*3/uL ESR (0-20) mm/Hr Creatinine 0.65 L (0.66-1.25) mg/dL POC Glucose (mg/dL) 229 H (70-110) mg/dL AST 16 L (17-59) U/L Total Protein 5.7 L (6.3-8.2) g/dL Albumin 3.1 L (3.5-5.0) g/dL
[2024-12-03] MEDS: PANTOPRAZOLE 40 MG TABLET PO SCH (14:35)
--- NOTE | 2024-12-03 16:22 | P.PN ---
Subjective Progress Note Date: 12/03/24 Hospital Course: Is a 74-year-old male with past medical history of left foot osteomyelitis sta tus post transmetatarsal amputation and debridement on IV cefepime, PAD s/p left common femoral thromboendarterectomy with left femoral to popliteal bypass, vtl-ovtbbjz-fzesceiex type II DM, history of DVT not on anticoagulation, hyperlipidemia, BPH, chronic tobacco use, peripheral neuropathy, ho is presenting the emergency department after being sent from [facility] [place] the [place] due to low hemoglobin. He has a history of requiring blood transfusion. Not currently on blood thinners denies any hematochezia or melena. Hemoglobin on arrival 5.8, patient admitted for further management of acute anemia requiring blood transfusion, general surgery consulted for EGD and colonoscopy, hematology oncology consulted EGD was done on 12/02, no evidence of upper GI bleed, antral gastritis noticed. Colonoscopy not performed due to poor preparation, patient refused repeat. Oncology recommended to hold on IV iron due to active osteomyelitis, iron saturation 27%, ferritin 56.7, B12 274 and folate 24.9. Patient hemoglobin stabilized, continue with PPI, tolerates regular diet. Patient has been complaining of worsening wound, his wound VAC was taken off on admission, wound care consult on 11/28/2024, today on 12/03/2024 patient has not been seen, discussed with RN and case management, trying to reach out wound care team, Dr. Alicea consulted in the meantime. Patient is afebrile, his WBC count is normal, hemoglobin is 8.3, stable, normal electrolytes and creatinine 0.65, blood glucose fluctuates. Pertinent positives and negatives as discussed above, a complete review of systems was performed and all other systems are negative. Vitals Signs Reviewed. General: [nontoxic], [no distress], [appears at stated age] Derm: [warm], [dry] Head: [atraumatic], [normocephalic], [symmetric] Eyes: [EOMI], [no lid lag], [anicteric sclera] Mouth: [no lip lesion], [mucus membranes moist] Cardiovascular: [S1S2 reg], [no murmur] Lungs: [CTA bilateral], [no rhonchi, no rales] , [no accessory muscle use] Abdominal: [soft], [ nontender to palpation], [no guarding], [no appreciable organomegaly] Ext: TMA, wrapped in bandages, foul odour Neuro: [ CN II-XI grossly intact], [no focal neuro deficits] Psych: [Alert], [oriented], [appropriate affect] Assessment and Plan: Acute macrocytic anemia, multifactorial Iron deficiency anemia Blood loss from recent TMA on 10/31 Antral gastritis per EGD 12/02 -Iron status as above, folate and B12 as above - Holding ASA, cilostazol, Plavix, continue oral ferric gluconate 125 mg p.o. daily, cyanocobalamin 1000 mcg IM daily - Refused repeat colonoscopy -Hemoglobin 8.3, stable, no leukocytosis, platelet count normal, ESR 35, trending down from 79 in October - CBC daily, ordered Left foot osteomyelitis s/p transmetatarsal amputation and debridement -Continue IV cefepime 2 g 3 times daily -Pain management with Percocet 10 Q4H PRN + Gabapentin 400 mg PO TID. Wound care consulted. -dr Alicea consulted -Inflammatory markers stable from before [id number]-muutwbqnw type 2 diabetes mellitus: ISS + Accuchecks ACHS along with hypoglycemic precautions. History of DVT not currently on anticoagulation, Duplex US 11/28 negative for DVT Enlarged left inguinal lymph node: Could be reactive to recent femoral bypass, will need to be followed up o/p with repeat imaging Hyperlipidemia: Lipitor 80 mg PO QHS. BPH: Flomax 0.8 mg PO QHS. Chronic tobacco use Peripheral neuropathy: Pain management as above. DVT ppx: SCD Code status: Full code Anticipated discharge place: SNF Anticipated discharge time: TBD, anemia has stabilized, no needs to be seen by podiatry/wound care to determine further steps regarding wound management Objective - Vital Signs Vital signs: Vital Signs Temp 98 F 12/03/24 12:46 Pulse 72 12/03/24 12:46 Resp 16 12/03/24 12:46 BP 113/66 12/03/24 12:46 Pulse Ox 95 12/03/24 12:46 FiO2 Intake & Output 12/02/24 12/03/24 12/03/24 18:59 06:59 18:59 Intake Total 300 Output Total 400 500 Balance -100 -500 Intake: IV 300 Output: Urine 400 500 Other: # Voids 1 - Labs CBC & Chem 7: 12/03/24 06:31 12/03/24 06:31 Labs: Abnormal Lab Results - Last 24 Hours (Table) 12/02/24 12/02/24 12/02/24 Range/Units 04:48 16:57 20:28 RBC (4.40-5.60) 10*6/uL Hgb (13.0-17.0) g/dL Hct (39.6-50.0) % MCV (80.0-97.0) fL MCHC (32.0-37.0) g/dL RDW (11.5-14.5) % MPV (9.5-12.2) fL Lymphocytes # (0.90-5.00) 10*3/uL ESR 35 H (0-20) mm/Hr Creatinine (0.66-1.25) mg/dL POC Glucose (mg/dL) 247 H 312 H (70-110) mg/dL AST (17-59) U/L Total Protein (6.3-8.2) g/dL Albumin (3.5-5.0) g/dL 12/03/24 12/03/24 12/03/24 Range/Units 06:31 06:31 11:56 RBC 2.64 L (4.40-5.60) 10*6/uL Hgb 8.3 L (13.0-17.0) g/dL Hct 26.0 L (39.6-50.0) % MCV 98.5 H (80.0-97.0) fL MCHC 31.9 L (32.0-37.0) g/dL RDW 16.5 H (11.5-14.5) % MPV 9.0 L (9.5-12.2) fL Lymphocytes # 0.84 L (0.90-5.00) 10*3/uL ESR (0-20) mm/Hr Creatinine 0.65 L (0.66-1.25) mg/dL POC Glucose (mg/dL) 229 H (70-110) mg/dL AST 16 L (17-59) U/L Total Protein 5.7 L (6.3-8.2) g/dL Albumin 3.1 L (3.5-5.0) g/dL Microbiology - Last 24 Hours (Table) 12/02/24 17:00 Gram Stain - Preliminary Foot - Left
[2024-12-03 17:12] LABS: Glucose,Whole Blood 230 mg/dL (70-110)
[2024-12-03 20:28] LABS: Glucose,Whole Blood 143 mg/dL (70-110)
[2024-12-03] MEDS ORDERED: VANCOMYCIN IV PER PHARMACY 1 EACH MISC MISCELLANE PRN ×2 (23:24→23:39)
[2024-12-04] MEDS: VANCOMYCIN 1,500 MG in SODIUM CHLORIDE 0.9% 500 ML 500 ML IVPB SCH (00:48)
[2024-12-04 06:48] LABS: African American GFR (CKD) >90 (>60 ml/min/1.73 sqM); Non-African American GFR(CKD) >90 (>60 ml/min/1.73 sqM)
[2024-12-04 07:19] LABS: Glucose,Whole Blood 127 mg/dL (70-110)
[2024-12-04 11:09] LABS: HCT 24.5 % (39.6-50.0); HGB 7.5 g/dL (13.0-17.0); MCH 30.7 pg (27.0-32.0); MCHC 30.6 g/dL (32.0-37.0); MCV 100.4 FL (80.0-97.0); Mean Platelet Volume 9.4 FL (9.5-12.2); NRBC Per 100 WBC 0 X 10*3/uL (0.00-0.01); Platelet Count 264 X 10*3/uL (140-440); RBC 2.44 X 10*6/uL (4.40-5.60); WBC 4.08 X 10*3/uL (4.50-10.00)
[2024-12-04 11:10] LABS: Basophils # (A) 0.03 X 10*3/uL (0.00-0.10); Basophils % (A) 0.7 %; Eosinophils # (A) 0.15 X 10*3/uL (0.04-0.35); Eosinophils % (A) 3.7 %; Lymphocytes # (A) 0.68 X 10*3/uL (0.90-5.00); Lymphocytes % (A) 16.7 %; Monocytes # (A) 0.47 X 10*3/uL (0.20-1.00); Monocytes % (A) 11.5 %; Neutrophils # (A) 2.71 X 10*3/uL (1.80-7.70); Neutrophils % (A) 66.4 %
[2024-12-04 12:21] LABS: Glucose,Whole Blood 260 mg/dL (70-110)
--- NOTE | 2024-12-04 12:26 | P.PN ---
Subjective Progress Note Date: 12/04/24 SURGICAL PROGRESS NOTE CHIEF COMPLAINT: Anemia HISTORY OF PRESENT ILLNESS: Patient has no new complaints. Patient reports his stools are brown. He is not interested in a colonoscopy. Hemoglobin did drop from 8.3-7.5. He reports no active signs of bleeding. Patient had EGD completed that had revealed antral gastritis. Colonoscopy was not completed due to poor bowel prep. He denies any abdominal pain. PHYSICAL EXAM: VITAL SIGNS: Reviewed. GENERAL: Well-developed in no acute distress. ABDOMEN: Soft. Nondistended. Nontender. NEUROLOGIC: Alert and oriented. Cranial nerves II through XII grossly intact. ASSESSMENT: 1. Anemia PLAN: - Continue PPI for gastritis - Patient is refusing colonoscopy at this time - Okay to resume Plavix from surgical standpoint and monitor - Repeat CBC in a.m. Physician Supervisor [employer] note has been reviewed by physician. Signing provider agrees with the documented findings, assessment, and plan of care. Objective - Vital Signs Vital signs: Vital Signs Temp 97.6 F 12/04/24 07:17 Pulse 62 12/04/24 07:17 Resp 18 12/04/24 07:17 BP 110/62 12/04/24 07:17 Pulse Ox 100 12/04/24 07:17 FiO2 Intake & Output 12/03/24 12/04/24 12/04/24 18:59 06:59 18:59 Intake Total 200 Output Total 500 1350 Balance -500 -1150 Intake: Oral 200 Output: Urine 500 1350 - Labs CBC & Chem 7: 12/04/24 06:12 12/04/24 06:12 Labs: Abnormal Lab Results - Last 24 Hours (Table) 12/03/24 12/03/24 12/04/24 Range/Units 17:10 20:26 06:12 WBC 4.08 L (4.50-10.00) X 10*3/uL RBC 2.44 L (4.40-5.60) X 10*6/uL Hgb 7.5 L (13.0-17.0) g/dL Hct 24.5 L (39.6-50.0) % MCV 100.4 H (80.0-97.0) FL MCHC 30.6 L (32.0-37.0) g/dL RDW 16.0 H (11.5-14.5) % MPV 9.4 L (9.5-12.2) FL Lymphocytes # 0.68 L (0.90-5.00) X 10*3/uL POC Glucose (mg/dL) 230 H 143 H (70-110) mg/dL 12/04/24 12/04/24 Range/Units 07:18 12:20 WBC (4.50-10.00) X 10*3/uL RBC (4.40-5.60) X 10*6/uL Hgb (13.0-17.0) g/dL Hct (39.6-50.0) % MCV (80.0-97.0) FL MCHC (32.0-37.0) g/dL RDW (11.5-14.5) % MPV (9.5-12.2) FL Lymphocytes # (0.90-5.00) X 10*3/uL POC Glucose (mg/dL) 127 H 260 H (70-110) mg/dL Microbiology - Last 24 Hours (Table) 12/02/24 17:00 Gram Stain - Preliminary Foot - Left Wound Culture - Preliminary Enterobacter cloacae Complex Escherichia coli Presumptive MRSA
--- NOTE | 2024-12-04 13:37 | P.PN ---
Subjective Progress Note Date: 12/04/24 Hospital Course: Is a 74-year-old male with past medical history of left foot osteomyelitis sta tus post transmetatarsal amputation and debridement on IV cefepime, PAD s/p left common femoral thromboendarterectomy with left femoral to popliteal bypass, idd-ctzmhic-exjubevna type II DM, history of DVT not on anticoagulation, hyperlipidemia, BPH, chronic tobacco use, peripheral neuropathy, ho is presenting the emergency department after being sent from [facility] [place] the [place] due to low hemoglobin. He has a history of requiring blood transfusion. Not currently on blood thinners denies any hematochezia or melena. Hemoglobin on arrival 5.8, patient admitted for further management of acute anemia requiring blood transfusion, general surgery consulted for EGD and colonoscopy, hematology oncology consulted EGD was done on 12/02, no evidence of upper GI bleed, antral gastritis noticed. Colonoscopy not performed due to poor preparation, patient refused repeat. Oncology recommended to hold on IV iron due to active osteomyelitis, iron saturation 27%, ferritin 56.7, B12 274 and folate 24.9. Patient hemoglobin stabilized, continue with PPI, tolerates regular diet. Patient has been complaining of worsening wound, his wound VAC was taken off on admission, wound care consult on 11/28/2024, today on 12/03/2024 patient has not been seen, discussed with RN and case management, trying to reach out wound care team, Dr. Alicea consulted in the meantime. Patient is afebrile, his WBC count is normal, hemoglobin is 8.3, stable, normal electrolytes and creatinine 0.65, blood glucose fluctuates. 12/04/2024: Seen and examined at bedside, wound cultures growing presumptive MRSA, E. coli, Enterobacter cloacae, she was started on vancomycin, ID consulted. Continues to be afebrile, WBC 4.08, hemoglobin 7.5 surgery recommends resuming Plavix and monitor CBC. Pertinent positives and negatives as discussed above, a complete review of systems was performed and all other systems are negative. Vitals Signs Reviewed. General: [nontoxic], [no distress], [appears at stated age] Derm: [warm], [dry] Head: [atraumatic], [normocephalic], [symmetric] Eyes: [EOMI], [no lid lag], [anicteric sclera] Mouth: [no lip lesion], [mucus membranes moist] Cardiovascular: [S1S2 reg], [no murmur] Lungs: [CTA bilateral], [no rhonchi, no rales] , [no accessory muscle use] Abdominal: [soft], [ nontender to palpation], [no guarding], [no appreciable organomegaly] Ext: TMA, wrapped in bandages, foul odour Neuro: [ CN II-XI grossly intact], [no focal neuro deficits] Psych: [Alert], [oriented], [appropriate affect] Assessment and Plan: Acute macrocytic anemia, multifactorial Iron deficiency anemia Blood loss from recent TMA on 10/31 Antral gastritis per EGD 12/02 -Iron status as above, folate and B12 as above - Holding ASA, cilostazol, Plavix, continue oral ferric gluconate 125 mg p.o. daily, cyanocobalamin 1000 mcg IM daily - Refused repeat colonoscopy -Hemoglobin 7.5, stable, no leukocytosis, platelet count normal, ESR 35, trending down from 79 in October - CBC daily, ordered 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 coli, Enterobacter cloacae -Started on vancomycin SOT 12/25, ID consulted, appreciate recommendations, will monitor BMP daily for nephrotoxicity -Continue IV cefepime 2 g 3 times daily -Pain management with Percocet 10 Q4H PRN + Gabapentin 400 mg PO TID. Wound care consulted. Patient is now n.p.o. at midnight -dr Alicea consulted -Inflammatory markers stable from before Nwg-nabqunk-jshixfirb type 2 diabetes mellitus: ISS + Accuchecks ACHS along with hypoglycemic precautions. History of DVT not currently on anticoagulation, Duplex US 11/28 negative for DVT Enlarged left inguinal lymph node: Could be reactive to recent femoral bypass, will need to be followed up o/p with repeat imaging Hyperlipidemia: Lipitor 80 mg PO QHS. BPH: Flomax 0.8 mg PO QHS. Chronic tobacco use Peripheral neuropathy: Pain management as above. DVT ppx: SCD Code status: Full code Anticipated discharge place: [facility] Anticipated discharge time: TBD, anemia has stabilized, no needs to be seen by podiatry/wound care to determine further steps regarding wound management Objective - Vital Signs Vital signs: Vital Signs Temp 98.4 F 12/04/24 12:19 Pulse 65 12/04/24 12:19 Resp 18 12/04/24 12:19 BP 117/58 12/04/24 12:19 Pulse Ox 99 12/04/24 12:19 FiO2 Intake & Output 12/03/24 12/04/24 12/04/24 18:59 06:59 18:59 Intake Total 200 Output Total 500 1350 Balance -500 -1150 Intake: Oral 200 Output: Urine 500 1350 - Labs CBC & Chem 7: 12/04/24 06:12 12/04/24 06:12 Labs: Abnormal Lab Results - Last 24 Hours (Table) 12/03/24 12/03/24 12/04/24 Range/Units 17:10 20:26 06:12 WBC 4.08 L (4.50-10.00) X 10*3/uL RBC 2.44 L (4.40-5.60) X 10*6/uL Hgb 7.5 L (13.0-17.0) g/dL Hct 24.5 L (39.6-50.0) % MCV 100.4 H (80.0-97.0) FL MCHC 30.6 L (32.0-37.0) g/dL RDW 16.0 H (11.5-14.5) % MPV 9.4 L (9.5-12.2) FL Lymphocytes # 0.68 L (0.90-5.00) X 10*3/uL POC Glucose (mg/dL) 230 H 143 H (70-110) mg/dL 12/04/24 12/04/24 Range/Units 07:18 12:20 WBC (4.50-10.00) X 10*3/uL RBC (4.40-5.60) X 10*6/uL Hgb (13.0-17.0) g/dL Hct (39.6-50.0) % MCV (80.0-97.0) FL MCHC (32.0-37.0) g/dL RDW (11.5-14.5) % MPV (9.5-12.2) FL Lymphocytes # (0.90-5.00) X 10*3/uL POC Glucose (mg/dL) 127 H 260 H (70-110) mg/dL Microbiology - Last 24 Hours (Table) 12/02/24 17:00 Gram Stain - Preliminary Foot - Left Wound Culture - Preliminary Enterobacter cloacae Complex Escherichia coli Presumptive MRSA
--- NOTE | 2024-12-04 14:06 | P.GSCN ---
History of Present Illness Consult date: 12/04/24 Reason for Consult: Status post transmetatarsal amputation, complains of worsening wound Requesting physician: Usha Maradiaga History of present illness: Pleasant 74-year-old male known to vascular surgery with a history of peripheral arterial disease who has undergone left transmetatarsal amputation on 10/04/2024, underwent angiogram with revascularization on 10/11/2024 who was followed in the outpatient setting he had wound dehiscence with concern for nonviable tissue. 10/31/2024 he underwent a left common femoral thromboendarterectomy, left fem-tib popliteal bypass graft and debridement of the left transmetatarsal amputation wound with placement of wound VAC therapy. Patient had ultimately been discharged to [facility], he had follow-up in the office with Dr. Alicea with recommendations to continue wound care and wound VAC. Patient states he has been getting wound care at subacute rehab. States before he left [facility] they took off his wound VAC and since he came to the hospital no further wound VAC was ordered. Consultation was placed to the wound care center on 10/29/2024 however they were not available to see patient. Apparently they have been using wet-to-dry dressing change his left foot. Wound culture with Enterobacter Seguin complex, E. coli and presumptive MRSA. Patient states he still having some pain in his left calf. He had a venous duplex negative for DVT. States he feels that his wound is getting worse and that it has a foul odor. Patient has been afebrile. No leukocytosis. Patient was admitted with a hemoglobin of 5.8. General surgery was consulted for evaluation for possible GI bleed. Upper endoscopy completed without any active bleeding or old blood noted. Colonoscopy could not be performed due to poor prep. And then patient was refusing. Past Medical History Past Medical History: Diabetes Mellitus, Deep Vein Thrombosis (DVT), Eye Disorder, GERD/Reflux, Hyperlipidemia, Hypertension, Prostate Disorder Additional Past Medical History / Comment(s): L foot osteomylitis, DJD, DVT R leg, R eye macular degeneration, BPH, benign colon polyps. History of Any Multi-Drug Resistant Organisms: MRSA Year Discovered:: 12/03/24 MDRO Source:: Left foot Past Surgical History: Orthopedic Surgery, Tonsillectomy Additional Past Surgical History / Comment(s): L great toe amputation, L 2nd toe "bones disconnected", colonoscopy with polypectomy, bilateral cataract removals, 3rd/4th/5th digit on left foot removed, L fem/pop Past Anesthesia/Blood Transfusion Reactions: No Reported Reaction Past Psychological History: No Psychological Hx Reported Additional Psychological History / Comment(s): Pt resides alone. He is independent. Smoking Status: Current every day smoker Past Alcohol Use History: None Reported Additional Past Alcohol Use History / Comment(s): 1PPD SINCE AGE 10 Past Drug Use History: None Reported - Past Family History Father History Unknown: Yes Family Medical History: No Reported History Mother Family Medical History: No Reported History Additional Family Medical History / Comment(s): Mother was healthy Medications and Allergies Home Medications Medication Instructions Recorded Confirmed Type metFORMIN HCL [Glucophage] 1,000 mg PO BID 12/23/16 11/28/24 History Aspirin [Adult Low Dose Aspirin EC] 81 mg PO DAILY 11/01/17 11/28/24 History Cholecalciferol [Vitamin D3 (25 50 mcg PO DAILY 06/17/21 11/28/24 History Mcg = 1000 Iu)] Podofilox 1 applic TOPICAL DAILY 10/03/24 11/28/24 History glipiZIDE [Glucotrol] 10 mg PO BID 10/03/24 11/28/24 History Gabapentin [Neurontin] 300 mg PO TID 30 Days #90 cap 10/08/24 11/28/24 Rx cilostazoL [Pletal] 100 mg PO BID #60 tab 10/08/24 11/28/24 Rx Ascorbic Acid [Vitamin C] 1,000 mg PO DAILY #30 tablet 10/15/24 11/28/24 Rx Ferrous Sulfate [Iron (65 MG 325 mg PO DAILY #30 tab 10/15/24 11/28/24 Rx Elemental)] Folic Acid 1 mg PO DAILY #30 tab 10/15/24 11/28/24 Rx Tamsulosin HCl [Flomax] 0.8 mg PO HS #30 cap 10/15/24 11/28/24 Rx Multivitamins, Thera [Multivitamin 1 tab PO DAILY 10/17/24 11/28/24 History (formulary)] Cefepime [Maxipime] 2 gm IVPB Q8HR each 11/05/24 11/28/24 Rx Clopidogrel [Plavix] 75 mg PO DAILY #90 tab 11/05/24 11/28/24 Rx 0.9 % Sodium Chloride [Sodium 10 ml IV Q8H 11/28/24 11/28/24 History Chloride Flush] Atorvastatin [Lipitor] 80 mg PO HS 11/28/24 11/28/24 History Empagliflozin [Jardiance] 25 mg PO DAILY 11/28/24 11/28/24 History Lactulose [Cephulac] 20 gm PO BID 11/28/24 11/28/24 History Saxagliptin HCl 5 mg PO DAILY 11/28/24 11/28/24 History oxyCODONE-APAP 7.5-325MG [Percocet 1 tab PO Q4H PRN 11/28/24 11/28/24 History 7.5-325 mg] Allergies Allergy/AdvReac Type Severity Reaction Status Date / Time sulfamethoxazole Allergy Severe joint Verified 11/28/24 08:08 [From Bactrim] pain, aches ciprofloxacin [From Cipro] Allergy joint Verified 11/28/24 08:08 pain, aches lisinopril Allergy joint Verified 11/28/24 08:08 pain, cough trimethoprim [From Bactrim] Allergy joint Verified 11/28/24 08:08 pain, aches NABIL Inhibitors AdvReac Cough Verified 11/28/24 08:08 Surgical - Exam Vital Signs Temp Pulse Resp BP Pulse Ox 97.9 F 98 18 112/57 100 11/27/24 19:34 11/27/24 19:34 11/27/24 19:34 11/27/24 19:34 11/27/24 19:34 General appearance: The patient is alert, oriented, appears in no acute distress. HET: Head is normocephalic and atraumatic. Pupils are equal and reactive. Neck: Supple. Heart: Regular. Lungs: Equal expansion, normal respiratory effort. Abdomen: Soft, nontender, nondistended. Extremities: Hyperpigmentation left foot. Left lower extremity warm to the touch, patent bypass graft. Good capillary refill. PT and DP Doppler signal present. Left TMA wound with pink wound bed, edges with some nonviable tissue. Plantar aspect with soft tissue. Neurological: Alert and oriented. Results - Labs 12/04/24 06:12 12/04/24 06:12 Abnormal Lab Results - Last 24 Hours (Table) 06/08/2712/03/24 12/03/24 Range/Units 04:48 11:56 17:10 ESR 35 H (0-20) mm/Hr POC Glucose (mg/dL) 229 H 230 H (70-110) mg/dL 12/03/24 12/04/24 Range/Units 20:26 07:18 ESR (0-20) mm/Hr POC Glucose (mg/dL) 143 H 127 H (70-110) mg/dL Microbiology - Last 24 Hours (Table) 12/02/24 17:00 Gram Stain - Preliminary Foot - Left Wound Culture - Preliminary Enterobacter cloacae Complex Escherichia coli Presumptive MRSA Diabetes panel 12/04/24 Range/Units 06:12 Creatinine 0.71 (0.66-1.25) mg/dL Pituitary panel 12/04/24 Range/Units 06:12 Creatinine 0.71 (0.66-1.25) mg/dL Adrenal panel 12/04/24 Range/Units 06:12 Creatinine 0.71 (0.66-1.25) mg/dL Assessment and Plan Assessment: 1. Recent right foot TMA revision and wound debridement, unfortunately wound VAC was removed prior to patient leaving [facility] and coming into the hospital for anemia and was not replaced during this hospitalization 2. Anemia, acute on chronic unclear etiology 3. Peripheral arterial disease status post recent left 5 pop bypass and left common femoral artery thromboendarterectomy Plan: 1. Continue with wet-to-dry dressing change at this time 2. Possible surgical debridement on Monday however may perform bedside debridement tomorrow, will reevaluate 3. Appreciate recommendations from wound care 4. Rest of medical management per primary medical team Thank you for this consultation, we will continue to follow. The impression and plan of care has been dictated as directed. Dr. Giovanni Melchor I performed a history and examination of this patient, discussed the same with the dictator. I agree with the dictator's note ,documented as a scribe. Any additional findings or plans will be noted.
[2024-12-04] MEDS: CEFEPIME 2 GM in SODIUM CHLORIDE 0.9% 100 ML IVPB SCH (16:05)
--- NOTE | 2024-12-04 16:25 | P.CON ---
Consult Note - . Consult date: 12/04/24 Assessment/Plan:: Wound care consultation: Date of consultation: 12/04/2024 Reason for consultation: Ulceration left foot status post transmetatarsal amputation. The patient is somewhat unclear about the times of his previous interventions. He has apparently undergone a couple of revascularization procedures. He underwent a left transmetatarsal amputation and subsequent debridement of the amputation site. He has currently been brought through the emergency room due to a severely low hemoglobin. He has been evaluated by a nurse practitioner for vascular surgery with tentative plans for a debridement to be followed by wound VAC tomorrow. Relevant examination. The patient is status post left transmetatarsal amputation. There is a large open wound encompassing the distal aspect of the amputation site on the dorsum including the fifth metatarsal bone as well as a large portion of ulceration on the plantar surface almost to the heel. Although the base of the wound looks like it is granulating well, the periphery has a lot of necrotic tissue and the fifth metatarsal bone is exposed and somewhat fragmented. Recommendation: The vascular surgical plan, as outlined to me, of debridement followed by wound VAC seems a viable option. However, the patient is concerned about the length of time required to obtain resolution of the open wound. He voiced a desire to consider left below-knee amputation. I will defer the decision as to the choice of debridement versus transmetatarsal revision versus below-knee amputation to vascular surgery. If debridement is undertaken we will be happy to manage the wound VAC long-term. If there are further questions during his hospital stay please feel free to contact us in wound care.
[2024-12-04 17:22] LABS: Glucose,Whole Blood 191 mg/dL (70-110)
[2024-12-04 20:47] LABS: Glucose,Whole Blood 255 mg/dL (70-110)
[2024-12-05 07:05] LABS: Glucose,Whole Blood 127 mg/dL (70-110)
[2024-12-05 08:59] LABS: HCT 25.2 % (39.6-50.0); HGB 7.8 g/dL (13.0-17.0); Mean Platelet Volume 9.2 FL (9.5-12.2); NRBC Per 100 WBC 0 X 10*3/uL (0.00-0.01); Platelet Count 253 X 10*3/uL (140-440); RBC 2.52 X 10*6/uL (4.40-5.60); RDW 15.7 % (11.5-14.5); WBC 4.83 X 10*3/uL (4.50-10.00)
[2024-12-05] MEDS: VANCOMYCIN TROUGH DUE 1 EACH MISC MISCELLANE ONE (09:30)
[2024-12-05 09:51] LABS: African American GFR (CKD) >90 (>60 ml/min/1.73 sqM); Anion Gap 4 mmol/L; Blood Urea Nitrogen 12 mg/dL (9-20); Calcium 8.3 mg/dL (8.4-10.2); Carbon Dioxide 29 mmol/L (22-30); Chloride 103 mmol/L (98-107); Glucose 208 mg/dL (74-99); Non-African American GFR(CKD) >90 (>60 ml/min/1.73 sqM); Potassium 4.4 mmol/L (3.5-5.1); Sodium 136 mmol/L (137-145)
[2024-12-05] MEDS: SODIUM HYPOCHLORITE 0.25% 480 ML BOT MISCELLANE SCH (10:00)
--- NOTE | 2024-12-05 10:01 | P.PN ---
Subjective Progress Note Date: 12/05/24 Principal diagnosis: Foot wound Seen and examined today as a follow-up. He remains afebrile. States pain about the same. Patient was seen yesterday by Dr. Viveros with wound care and they will manage wound VAC long-term. Apparently patient had mentioned he is concerned with the length of healing knee wound and had mentioned possible below the knee amputation. Patient has undergone revascularization with good blood flow to his lower extremity. This was discussed with the patient and anticipate wound to heal in the next 1 to 2 months. Objective - Vital Signs Vital signs: Vital Signs Temp 98.4 F 12/05/24 07:01 Pulse 69 12/05/24 07:01 Resp 18 12/05/24 07:01 BP 124/57 12/05/24 07:01 Pulse Ox 96 12/05/24 07:01 FiO2 Intake & Output 12/04/24 12/05/24 12/05/24 18:59 06:59 18:59 Intake Total 600 Output Total 2100 1200 Balance -1500 -1200 Intake: Intake, IV Titration 600 Amount Cefepime 2 gm In Sodium 100 Chloride 0.9% 100 ml @ 25 mls/hr IVPB Q8HR [facility] Rx# :[id number] Vancomycin 1,500 mg In 500 Sodium Chloride 0.9% 500 ml 500 ml @ 167 mls/hr IVPB Q12HR@1000,2200 [facility] Rx#:[id number] Output: Urine 2100 1200 Other: Voiding Method Urinal - Exam General appearance: The patient is alert, oriented, appears in no acute distress. HET: Head is normocephalic and atraumatic. Pupils are equal and reactive. Neck: Supple. Abdomen: Soft, nondistended. Extremities: Hyperpigmentation left foot. Left lower extremity warm to the touch, patent bypass graft. Good capillary refill. PT and DP Doppler signal present. Left TMA wound with pink wound bed, with good granulation edges with some nonviable tissue. Plantar aspect with slough tissue and nonviable tissue around edge. No signs of infection and no foul odor. Neurological: Alert and oriented. - Labs CBC & Chem 7: 12/05/24 04:54 12/04/24 06:12 Labs: Abnormal Lab Results - Last 24 Hours (Table) 12/04/24 12/04/24 12/04/24 Range/Units 06:12 12:20 17:21 WBC 4.08 L (4.50-10.00) X 10*3/uL RBC 2.44 L (4.40-5.60) X 10*6/uL Hgb 7.5 L (13.0-17.0) g/dL Hct 24.5 L (39.6-50.0) % MCV 100.4 H (80.0-97.0) FL MCHC 30.6 L (32.0-37.0) g/dL RDW 16.0 H (11.5-14.5) % MPV 9.4 L (9.5-12.2) FL Lymphocytes # 0.68 L (0.90-5.00) X 10*3/uL POC Glucose (mg/dL) 260 H 191 H (70-110) mg/dL 12/04/24 12/05/24 12/05/24 Range/Units 20:41 04:54 07:04 WBC (4.50-10.00) X 10*3/uL RBC 2.52 L (4.40-5.60) X 10*6/uL Hgb 7.8 L (13.0-17.0) g/dL Hct 25.2 L (39.6-50.0) % MCV 100.0 H (80.0-97.0) FL MCHC 31.0 L (32.0-37.0) g/dL RDW 15.7 H (11.5-14.5) % MPV 9.2 L (9.5-12.2) FL Lymphocytes # (0.90-5.00) X 10*3/uL POC Glucose (mg/dL) 255 H 127 H (70-110) mg/dL Microbiology - Last 24 Hours (Table) 12/02/24 17:00 Anaerobic Culture - Preliminary Foot - Left Prevotella species 12/02/24 17:00 Gram Stain - Final Foot - Left Wound Culture - Final Enterobacter cloacae Complex Escherichia coli Methicillin resist S. aureus Assessment and Plan Assessment: 1. Recent right foot TMA revision and wound debridement, status post bedside debridement 2. Anemia, acute on chronic unclear etiology 3. Peripheral arterial disease status post recent left 5 pop bypass and left common femoral artery thromboendarterectomy Plan: 1. Bedside debridement, see procedure note 2. No plans for surgical debridement 3. Cleanse with Dakin solution then apply wound VAC as ordered, change Monday, Monday and . 4. Recommend outpatient follow-up with [facility] for further management of left foot wound Discussed with patient healing time likely 1 to 2 months, patient has had multiple revascularization with good blood flow to left foot. No indication or plans for below the knee amputation. Thank you for this consultation, patient is cleared from vascular surgery for discharge. The impression and plan of care has been dictated as directed. Dr. Alicea I performed a history and examination of this patient, discussed the same with the dictator. I agree with the dictator's note ,documented as a scribe. Any additional findings or plans will be noted.
--- NOTE | 2024-12-05 10:03 | P.CONS ---
History of Present Illness - Reason for Consult Consult date: 12/04/24 Left foot infected wound Requesting physician: Elias Florentino - Chief Complaint Low hemoglobin and need for transfusion on admission x 1 day - History of Present Illness Patient is a 74-year-old male with a past medical history significant for Diabetes Mellitus, Deep Vein Thrombosis (DVT), Eye Disorder, GERD/Reflux, Hyperlipidemia, Hypertension, Prostate Disorder, also history of kidney stones , MSSA bacteremia status post transmetatarsal amputation and subsequently admitted to the hospital for dehiscence of the wound status post repeat debridement and vascular intervention culture at that time were positive for Enterobacter for the patient did get a PICC line and was advised a 6-week course of IV cefepime which the patient current receiving in the outpatient setting since 11/06/2024, patient has not been brought back to the hospital about 5 days ago on 11/27/2024 after the patient noticed to have low hemoglobin and did have a need for the transfusion patient has been evaluated by admitting oncology as well as general surgery patient is status post EGD and attempted colonoscopy with evidence of antral gastritis there was a poor colon prep colonoscopy could not be completed patient did have a cultures repeated which are now growing MRSA E. coli and Enterobacter for the patient has been on vancomycin infectious disease was consulted today regarding new MRSA infection with multiple pathogen patient currently denies having any fever or any chills the patient is breathing comfortably no chest pain shortness of breath or cough no abdominal pain denies any worsening pain to the left foot wound area seem to be slightly concerned because of foul-smelling drainage from the wound Review of Systems Positive point and negatives has been mentioned in the HPI, complete review of systems was performed and all other systems are negative Past Medical History Past Medical History: Diabetes Mellitus, Deep Vein Thrombosis (DVT), Eye Disorder, GERD/Reflux, Hyperlipidemia, Hypertension, Prostate Disorder Additional Past Medical History / Comment(s): L foot osteomylitis, DJD, DVT R leg, R eye macular degeneration, BPH, benign colon polyps. History of Any Multi-Drug Resistant Organisms: MRSA Year Discovered:: 12/03/24 MDRO Source:: Left foot Past Surgical History: Orthopedic Surgery, Tonsillectomy Additional Past Surgical History / Comment(s): L great toe amputation, L 2nd toe "bones disconnected", colonoscopy with polypectomy, bilateral cataract removals, 3rd/4th/5th digit on left foot removed, L fem/pop Past Anesthesia/Blood Transfusion Reactions: No Reported Reaction Past Psychological History: No Psychological Hx Reported Additional Psychological History / Comment(s): Pt resides alone. He is independent. Smoking Status: Current every day smoker Past Alcohol Use History: None Reported Additional Past Alcohol Use History / Comment(s): 1PPD SINCE AGE 10 Past Drug Use History: None Reported - Past Family History Father History Unknown: Yes Family Medical History: No Reported History Mother Family Medical History: No Reported History Additional Family Medical History / Comment(s): Mother was healthy Medications and Allergies Home Medications Medication Instructions Recorded Confirmed Type metFORMIN HCL [Glucophage] 1,000 mg PO BID 12/23/16 11/28/24 History Aspirin [Adult Low Dose Aspirin EC] 81 mg PO DAILY 11/01/17 11/28/24 History Cholecalciferol [Vitamin D3 (25 50 mcg PO DAILY 06/17/21 11/28/24 History Mcg = 1000 Iu)] Podofilox 1 applic TOPICAL DAILY 10/03/24 11/28/24 History glipiZIDE [Glucotrol] 10 mg PO BID 10/03/24 11/28/24 History Gabapentin [Neurontin] 300 mg PO TID 30 Days #90 cap 10/08/24 11/28/24 Rx cilostazoL [Pletal] 100 mg PO BID #60 tab 10/08/24 11/28/24 Rx Ascorbic Acid [Vitamin C] 1,000 mg PO DAILY #30 tablet 10/15/24 11/28/24 Rx Ferrous Sulfate [Iron (65 MG 325 mg PO DAILY #30 tab 10/15/24 11/28/24 Rx Elemental)] Folic Acid 1 mg PO DAILY #30 tab 10/15/24 11/28/24 Rx Tamsulosin HCl [Flomax] 0.8 mg PO HS #30 cap 10/15/24 11/28/24 Rx Multivitamins, Thera [Multivitamin 1 tab PO DAILY 10/17/24 11/28/24 History (formulary)] Cefepime [Maxipime] 2 gm IVPB Q8HR each 11/05/24 11/28/24 Rx Clopidogrel [Plavix] 75 mg PO DAILY #90 tab 11/05/24 11/28/24 Rx 0.9 % Sodium Chloride [Sodium 10 ml IV Q8H 11/28/24 11/28/24 History Chloride Flush] Atorvastatin [Lipitor] 80 mg PO HS 11/28/24 11/28/24 History Empagliflozin [Jardiance] 25 mg PO DAILY 11/28/24 11/28/24 History Lactulose [Cephulac] 20 gm PO BID 11/28/24 11/28/24 History Saxagliptin HCl 5 mg PO DAILY 11/28/24 11/28/24 History oxyCODONE-APAP 7.5-325MG [Percocet 1 tab PO Q4H PRN 11/28/24 11/28/24 History 7.5-325 mg] Allergies Allergy/AdvReac Type Severity Reaction Status Date / Time sulfamethoxazole Allergy Severe joint Verified 11/28/24 08:08 [From Bactrim] pain, aches ciprofloxacin [From Cipro] Allergy joint Verified 11/28/24 08:08 pain, aches lisinopril Allergy joint Verified 11/28/24 08:08 pain, cough trimethoprim [From Bactrim] Allergy joint Verified 11/28/24 08:08 pain, aches NABIL Inhibitors AdvReac Cough Verified 11/28/24 08:08 Physical Exam Vitals: Vital Signs Temp Pulse Resp BP Pulse Ox 12/04/24 07:17 97.6 F 62 18 110/62 100 12/04/24 04:45 98.3 F 76 16 124/69 98 12/03/24 19:09 98.1 F 72 17 115/55 94 L 12/03/24 12:46 98 F 72 16 113/66 95 Intake and Output 12/03/24 12/04/24 12/04/24 22:59 06:59 14:59 Intake Total 200 Output Total 300 1050 Balance -100 -1050 Intake: Oral 200 Output: Urine 300 1050 GENERAL DESCRIPTION: Elderly male lying in bed, no distress. No tachypnea or accessory muscle of respiration use. HEENT: Shows Pallor , no scleral icterus. Oral mucous membrane is dry. NECK: Trachea central, no thyromegaly. LUNGS: Unlabored breathing. Clear to auscultation anteriorly. No wheeze or crackle. HEART: S1, S2, regular rate and rhythm. No loud murmur ABDOMEN: Soft, no tenderness , guarding or rigidity, no organomegaly EXTREMITIES: Left foot wound picture reviewed sent by the vascular STOREPERSON wound base looks clean did have some slough tissue no foul-smelling drainage SKIN: No rash, no masses palpable. NEUROLOGICAL: The patient is awake, alert, oriented x3, mood and affect normal. Results CBC & Chem 7: 12/05/24 04:54 12/05/24 09:19 Labs: Abnormal Lab Results - Last 24 Hours (Table) 12/03/24 12/03/24 12/04/24 Range/Units 17:10 20:26 06:12 WBC 4.08 L (4.50-10.00) X 10*3/uL RBC 2.44 L (4.40-5.60) X 10*6/uL Hgb 7.5 L (13.0-17.0) g/dL Hct 24.5 L (39.6-50.0) % MCV 100.4 H (80.0-97.0) FL MCHC 30.6 L (32.0-37.0) g/dL RDW 16.0 H (11.5-14.5) % MPV 9.4 L (9.5-12.2) FL Lymphocytes # 0.68 L (0.90-5.00) X 10*3/uL POC Glucose (mg/dL) 230 H 143 H (70-110) mg/dL 12/04/24 12/04/24 Range/Units 07:18 12:20 WBC (4.50-10.00) X 10*3/uL RBC (4.40-5.60) X 10*6/uL Hgb (13.0-17.0) g/dL Hct (39.6-50.0) % MCV (80.0-97.0) FL MCHC (32.0-37.0) g/dL RDW (11.5-14.5) % MPV (9.5-12.2) FL Lymphocytes # (0.90-5.00) X 10*3/uL POC Glucose (mg/dL) 127 H 260 H (70-110) mg/dL Microbiology - Last 24 Hours (Table) 12/02/24 17:00 Gram Stain - Preliminary Foot - Left Wound Culture - Preliminary Enterobacter cloacae Complex Escherichia coli Presumptive MRSA Assessment and Plan Plan: 1patient with a chronic nonhealing wound to the left foot in this patient with initial admission to hospital for gangrenous toe followed by vascular intervention and did have a transmetatarsal amputation with initial culture with MSSA repeat culture on 10/25/2024 grew Enterobacter for the patient was getting cefepime however the culture done this admission on 12/02/2024 for now growing MRSA E. coli and Enterobacter 2-patient will be treated with the vancomycin pharmacy to dose however will also restart his cefepime to cover for the Enterobacter and E. coli while waiting for sensitivity to finalize 3-we will check his inflammatory markers 4-will likely need to continue with IV antibiotic therapy on discharge keeping in mind chronic nonhealing wound and recurrent infection Multiple question concern answered We will follow on clinical condition and cultures to further adjust medication if needed Thank you for this consultation we will follow the patient along with you Dictation was produced using [employer] dictation software. please excuse any grammatical, word or spelling errors. Time with Patient: Greater than 30
[2024-12-05] MEDS: metroNIDAZOLE 500 MG TAB PO SCH (10:07)
[2024-12-05 12:04] LABS: Glucose,Whole Blood 213 mg/dL (70-110)
--- NOTE | 2024-12-05 12:58 | P.PN ---
Subjective Progress Note Date: 12/05/24 SURGICAL PROGRESS NOTE CHIEF COMPLAINT: Anemia HISTORY OF PRESENT ILLNESS: Patient is status post bedside left foot placement by vascular surgery. Patient reports having brown stools. Denies any abdominal pain. Hemoglobin stable at 7.8 Patient had EGD completed that had revealed antral gastritis. Colonoscopy was not completed due to poor bowel prep. He denies any abdominal pain. PHYSICAL EXAM: VITAL SIGNS: Reviewed. GENERAL: Well-developed in no acute distress. ABDOMEN: Soft. Nondistended. Nontender. NEUROLOGIC: Alert and oriented. Cranial nerves II through XII grossly intact. ASSESSMENT: 1. Chronic anemia. No GI source of bleeding PLAN: - Continue PPI for gastritis - Patient is refusing colonoscopy at this time - Okay to resume Plavix from surgical standpoint - Repeat CBC in a.m. Physician Correspondence Representative note has been reviewed by physician. Signing provider agrees with the documented findings, assessment, and plan of care. Objective - Vital Signs Vital signs: Vital Signs Temp 98 F 12/05/24 11:59 Pulse 69 12/05/24 11:59 Resp 18 12/05/24 11:59 BP 99/43 12/05/24 11:59 Pulse Ox 97 12/05/24 11:59 FiO2 Intake & Output 12/04/24 12/05/24 12/05/24 18:59 06:59 18:59 Intake Total 600 Output Total 2100 1200 Balance -1500 -1200 Intake: Intake, IV Titration 600 Amount Cefepime 2 gm In Sodium 100 Chloride 0.9% 100 ml @ 25 mls/hr IVPB Q8HR [facility] Rx# :[id number] Vancomycin 1,500 mg In 500 Sodium Chloride 0.9% 500 ml 500 ml @ 167 mls/hr IVPB Q12HR@1000,2200 [facility] Rx#:[id number] Output: Urine 2100 1200 Other: Voiding Method Urinal Urinal - Labs CBC & Chem 7: 12/05/24 04:54 12/05/24 09:19 Labs: Abnormal Lab Results - Last 24 Hours (Table) 12/04/24 12/04/24 12/05/24 Range/Units 17:21 20:41 04:54 RBC 2.52 L (4.40-5.60) X 10*6/uL Hgb 7.8 L (13.0-17.0) g/dL Hct 25.2 L (39.6-50.0) % MCV 100.0 H (80.0-97.0) FL MCHC 31.0 L (32.0-37.0) g/dL RDW 15.7 H (11.5-14.5) % MPV 9.2 L (9.5-12.2) FL Sodium (137-145) mmol/L Glucose (74-99) mg/dL POC Glucose (mg/dL) 191 H 255 H (70-110) mg/dL Calcium (8.4-10.2) mg/dL 12/05/24 12/05/24 12/05/24 Range/Units 07:04 09:19 12:03 RBC (4.40-5.60) X 10*6/uL Hgb (13.0-17.0) g/dL Hct (39.6-50.0) % MCV (80.0-97.0) FL MCHC (32.0-37.0) g/dL RDW (11.5-14.5) % MPV (9.5-12.2) FL Sodium 136 L (137-145) mmol/L Glucose 208 H (74-99) mg/dL POC Glucose (mg/dL) 127 H 213 H (70-110) mg/dL Calcium 8.3 L (8.4-10.2) mg/dL Microbiology - Last 24 Hours (Table) 12/02/24 17:00 Anaerobic Culture - Preliminary Foot - Left Prevotella species 12/02/24 17:00 Gram Stain - Final Foot - Left Wound Culture - Final Enterobacter cloacae Complex Escherichia coli Methicillin resist S. aureus
--- NOTE | 2024-12-05 14:09 | P.PN ---
Subjective Progress Note Date: 12/05/24 Principal diagnosis: Reason for follow-up is infected left foot wound Patient is a 74-year-old male with multiple comorbidities admitted to hospital for symptomatic anemia in this patient also getting treatment for his left foot infected wound with the previous culture positive for Enterobacter however the culture this admission not growing Enterobacter E. coli MRSA and Prevotella. On today's evaluation that is 12/05/2024,the patient remains to be afebrile, patient is on room air not requiring supplemental oxygen and denies any shortness of breath no chest pain or cough.Patient denies having any nausea or vomiting, no abdominal pain and no diarrhea has been reported denies any worsening pain to the left foot area. Patient white count is 4.83, creatinine 0.72 Objective - Vital Signs Vital signs: Vital Signs Temp 98 F 12/05/24 11:59 Pulse 69 12/05/24 11:59 Resp 18 12/05/24 11:59 BP 99/43 12/05/24 11:59 Pulse Ox 97 12/05/24 11:59 FiO2 Intake & Output 12/04/24 12/05/24 12/05/24 18:59 06:59 18:59 Intake Total 600 Output Total 2100 1200 Balance -1500 -1200 Intake: Intake, IV Titration 600 Amount Cefepime 2 gm In Sodium 100 Chloride 0.9% 100 ml @ 25 mls/hr IVPB Q8HR [facility] Rx# :[id number] Vancomycin 1,500 mg In 500 Sodium Chloride 0.9% 500 ml 500 ml @ 167 mls/hr IVPB Q12HR@1000,2200 [facility] Rx#:[id number] Output: Urine 2100 1200 Other: Voiding Method Urinal Urinal - Exam GENERAL DESCRIPTION: An elderly male lying in bed in no distress RESPIRATORY SYSTEM: Unlabored breathing , decreased breath sounds at bases HEART: S1 S2 regular rate and rhythm , ABDOMEN: Soft , no tenderness EXTREMITIES: Left foot wound is covered with a wound VAC - Labs CBC & Chem 7: 12/05/24 04:54 12/05/24 09:19 Labs: Abnormal Lab Results - Last 24 Hours (Table) 12/04/24 12/04/24 12/05/24 Range/Units 17:21 20:41 04:54 RBC 2.52 L (4.40-5.60) X 10*6/uL Hgb 7.8 L (13.0-17.0) g/dL Hct 25.2 L (39.6-50.0) % MCV 100.0 H (80.0-97.0) FL MCHC 31.0 L (32.0-37.0) g/dL RDW 15.7 H (11.5-14.5) % MPV 9.2 L (9.5-12.2) FL Sodium (137-145) mmol/L Glucose (74-99) mg/dL POC Glucose (mg/dL) 191 H 255 H (70-110) mg/dL Calcium (8.4-10.2) mg/dL 12/05/24 12/05/24 12/05/24 Range/Units 07:04 09:19 12:03 RBC (4.40-5.60) X 10*6/uL Hgb (13.0-17.0) g/dL Hct (39.6-50.0) % MCV (80.0-97.0) FL MCHC (32.0-37.0) g/dL RDW (11.5-14.5) % MPV (9.5-12.2) FL Sodium 136 L (137-145) mmol/L Glucose 208 H (74-99) mg/dL POC Glucose (mg/dL) 127 H 213 H (70-110) mg/dL Calcium 8.3 L (8.4-10.2) mg/dL Microbiology - Last 24 Hours (Table) 12/02/24 17:00 Anaerobic Culture - Preliminary Foot - Left Prevotella species 12/02/24 17:00 Gram Stain - Final Foot - Left Wound Culture - Final Enterobacter cloacae Complex Escherichia coli Methicillin resist S. aureus Assessment and Plan (1) MRSA (methicillin resistant staph aureus) culture positive Current Visit: Yes Status: Acute Code(s): Z22.322 - CARRIER OR SUSPECTED CARRIER OF METHICILLIN RESIS STAPH SNOMED Code(s): 692845963 (2) Foot osteomyelitis, left Current Visit: Yes Status: Acute Code(s): M86.9 - OSTEOMYELITIS, UNSPECIFIED SNOMED Code(s): 6675859250031453 (3) Wound of left foot Current Visit: Yes Status: Acute Code(s): S91.302A - UNSPECIFIED OPEN WOUND, LEFT FOOT, INITIAL ENCOUNTER SNOMED Code(s): 53643377742781337 (4) Diabetic foot infection Current Visit: No Status: Acute Code(s): E11.628 - TYPE 2 DIABETES MELLITUS WITH OTHER SKIN COMPLICATIONS; L08.9 - LOCAL INFECTION OF THE SKIN AND SUBCUTANEOUS TISSUE, UNSP SNOMED Code(s): 927967632 Plan: 1patient with a chronic nonhealing wound to the left foot in this patient with initial admission to hospital for gangrenous toe followed by vascular intervention and did have a transmetatarsal amputation with initial culture with MSSA repeat culture on 10/25/2024 grew Enterobacter for the patient was getting cefepime however the culture done this admission on 12/02/2024 for now growing MRSA E. coli and Enterobacter and also anaerobe Prevotella 2-patient currently being treated with cefepime and vancomycin pharmacy dose of Flagyl has been added this morning to cover for anaerobes 3keeping in mind the patient did have extensive wound with new culture growing MRSA we will recommend decrease 6-week course of vancomycin and to continue with the cefepime for another 3 to 4 weeks and oral Flagyl in the close the patient follow-up Dictation was produced using [employer] dictation software. please excuse any g rammatical, word or spelling errors. Time with Patient: Less than 30
[2024-12-05 14:39] VITALS: BMI 24.0
--- NOTE | 2024-12-05 15:03 | P.DS ---
Providers Date of admission: 11/28/24 00:42 Attending physician: Lily Andino MD Consults: 11/28/24 10:17 Consult Physician Routine Consulting Provider: Katerin Monreal Consult Reason/Comments: Anemia Do you want consulting provider notified?: Yes 11/29/24 16:29 Consult Physician Routine Consulting Provider: Sha Santana Consult Reason/Comments: iron def anemia, dark stools per pt? Do you want consulting provider notified?: Yes 12/03/24 16:11 Consult Physician Routine Consulting Provider: Dagoberto Alicea Consult Reason/Comments: s/ptransmetatarsal amputation, comlains of worsening wound,patient of yours Do you want consulting provider notified?: Yes 12/03/24 23:43 Consult Physician Routine Consulting Provider: Alexa Peters Consult Reason/Comments: New MRSA infection with multiple previous infections over last 60 days Do you want consulting provider notified?: Yes Primary care physician: Florentino Roldan Hospital Course: Discharge Diagnosis: Acute macrocytic anemia, multifactorial Iron deficiency anemia Blood loss from recent TMA on 10/31 Antral gastritis per EGD 12/02 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 coli, Enterobacter cloacae [id number] type 2 diabetes mellitus History of DVT not currently on anticoagulation Enlarged left inguinal lymph node: Could be reactive to recent femoral bypass, will need to be followed up o/p with repeat imaging Hospital Course: a 74-year-old male with past medical history of left foot osteomyelitis status post transmetatarsal amputation and debridement on IV cefepime, PAD s/p left common femoral thromboendarterectomy with left femoral to popliteal bypass, mye-[id number]-[id number] type II DM, history of DVT not on anticoagulation, hyperlipidemia, BPH, chronic tobacco use, peripheral neuropathy, ho is presenting the emergency department after being sent from [facility] on the slemp due to low hemoglobin. He has a history of requiring blood transfusion. Not currently on blood thinners denies any hematochezia or melena. Hemoglobin on arrival 5.8, patient admitted for further management of acute anemia requiring blood transfusion, general surgery consulted for EGD and colonoscopy, hematology oncology consulted EGD was done on 12/02, no evidence of upper GI bleed, antral gastritis noticed. Colonoscopy not performed due to poor preparation, patient refused repeat. Oncology recommended to hold on IV iron due to active osteomyelitis, iron saturation 27%, ferritin 56.7, B12 274 and folate 24.9. Patient hemoglobin stabilized, continue with PPI, tolerates regular diet. Patient has been complaining of worsening wound, his wound VAC was taken off on admission, wound care consult on 11/28/2024, today on 12/03/2024 patient has not been seen, discussed with RN and case management, trying to reach out wound care team, Dr. Alicea consulted in the meantime. Patient is afebrile, his WBC count is normal, hemoglobin is 8.3, stable, normal electrolytes and creatinine 0.65, blood glucose fluctuates. 12/04/2024: Seen and examined at bedside, wound cultures growing presumptive MRSA, E. coli, Enterobacter cloacae, she was started on vancomycin, ID consulted. Continues to be afebrile, WBC 4.08, hemoglobin 7.5 surgery recommends resuming Plavix and monitor CBC. 12/05 vascular surgery performed bedside debridement and placed wound VAC back on, cleared patient for discharge. No indication or plans for below the knee amputation.Discussed with ID, patient cleared for discharge, will be on vancomycin, cefepime and oral Flagyl for 3 to 4 weeks with close follow-up, ID placed order. Follow up with vascular surgery, GI, PCP Patient seen and examined at bedside Vital signs reviewed and stable. General: [nontoxic], [no distress], [appears at stated age] Derm: [warm], [dry] Head: [atraumatic], [normocephalic], [symmetric] Eyes: [EOMI], [no lid lag], [anicteric sclera] Mouth: [no lip lesion], [mucus membranes moist] Cardiovascular: [S1S2 reg], [no murmur] Lungs: [CTA bilateral], [no rhonchi, no rales] , [no accessory muscle use] Abdominal: [soft], [ nontender to palpation], [no guarding], [no appreciable organomegaly] Ext: [no gross muscle atrophy], [no edema], [no contractures]. left foot wound vac in place Neuro: [ CN II-XI grossly intact], [no focal neuro deficits] Psych: [Alert], [oriented], [appropriate affect] A total of 40 minutes of time were spent preparing this complex discharge summary. Patient was discharged on 12/05/2024 Patient Condition at Discharge: Stable Plan - Discharge Summary New Discharge Prescriptions: New Cefepime [Maxipime] 2 gm IVPB Q8H #84 each Vancomycin HCl in 5 % Dextrose [Vancomycin 1.5 Gram/300 ml-D5w] 1.5 gm IV Q12HR #84 each metroNIDAZOLE [Flagyl] 500 mg PO TID #120 tab Pantoprazole [Protonix] 40 mg PO AC-BRKFST #30 tab Cyanocobalamin (Vitamin B-12) [Vitamin B-12] 1,000 mcg PO DAILY #30 tablet Continue metFORMIN HCL [Glucophage] 1,000 mg PO BID Aspirin [Adult Low Dose Aspirin EC] 81 mg PO DAILY Cholecalciferol [Vitamin D3 (25 Mcg = 1000 Iu)] 50 mcg PO DAILY cilostazoL [Pletal] 100 mg PO BID #60 tab Folic Acid 1 mg PO DAILY #30 tab Ferrous Sulfate [Iron (65 MG Elemental)] 325 mg PO DAILY #30 tab oxyCODONE-APAP 7.5-325MG [Percocet 7.5-325 mg] 1 tab PO Q4H PRN PRN Reason: Pain Lactulose [Cephulac] 20 gm PO BID Empagliflozin [Jardiance] 25 mg PO DAILY Atorvastatin [Lipitor] 80 mg PO HS glipiZIDE [Glucotrol] 10 mg PO BID Podofilox 1 applic TOPICAL DAILY Gabapentin [Neurontin] 300 mg PO TID 30 Days #90 cap Ascorbic Acid [Vitamin C] 1,000 mg PO DAILY #30 tablet Tamsulosin HCl [Flomax] 0.8 mg PO HS #30 cap Multivitamins, Thera [Multivitamin (formulary)] 1 tab PO DAILY Clopidogrel [Plavix] 75 mg PO DAILY #90 tab Saxagliptin HCl 5 mg PO DAILY 0.9 % Sodium Chloride [Sodium Chloride Flush] 10 ml IV Q8H Discontinued Cefepime [Maxipime] 2 gm IVPB Q8HR each Discharge Medication List metFORMIN HCL [Glucophage] 1,000 mg PO BID 12/23/16 [History] Aspirin [Adult Low Dose Aspirin EC] 81 mg PO DAILY 11/01/17 [History] Cholecalciferol [Vitamin D3 (25 Mcg = 1000 Iu)] 50 mcg PO DAILY 06/17/21 [History] Podofilox 1 applic TOPICAL DAILY 10/03/24 [History] glipiZIDE [Glucotrol] 10 mg PO BID 10/03/24 [History] Gabapentin [Neurontin] 300 mg PO TID 30 Days #90 cap 10/08/24 [Rx] cilostazoL [Pletal] 100 mg PO BID #60 tab 10/08/24 [Rx] Ascorbic Acid [Vitamin C] 1,000 mg PO DAILY #30 tablet 10/15/24 [Rx] Ferrous Sulfate [Iron (65 MG Elemental)] 325 mg PO DAILY #30 tab 10/15/24 [Rx] Folic Acid 1 mg PO DAILY #30 tab 10/15/24 [Rx] Tamsulosin HCl [Flomax] 0.8 mg PO HS #30 cap 10/15/24 [Rx] Multivitamins, Thera [Multivitamin (formulary)] 1 tab PO DAILY 10/17/24 [History] Clopidogrel [Plavix] 75 mg PO DAILY #90 tab 11/05/24 [Rx] 0.9 % Sodium Chloride [Sodium Chloride Flush] 10 ml IV Q8H 11/28/24 [History] Atorvastatin [Lipitor] 80 mg PO HS 11/28/24 [History] Empagliflozin [Jardiance] 25 mg PO DAILY 11/28/24 [History] Lactulose [Cephulac] 20 gm PO BID 11/28/24 [History] Saxagliptin HCl 5 mg PO DAILY 11/28/24 [History] oxyCODONE-APAP 7.5-325MG [Percocet 7.5-325 mg] 1 tab PO Q4H PRN 11/28/24 [History] Cefepime [Maxipime] 2 gm IVPB Q8H #84 each 12/05/24 [Rx] Cyanocobalamin (Vitamin B-12) [Vitamin B-12] 1,000 mcg PO DAILY #30 tablet 12/05/24 [Rx] Pantoprazole [Protonix] 40 mg PO AC-BRKFST #30 tab 12/05/24 [Rx] Vancomycin HCl in 5 % Dextrose [Vancomycin 1.5 Gram/300 ml-D5w] 1.5 gm IV Q12HR #84 each 12/05/24 [Rx] metroNIDAZOLE [Flagyl] 500 mg PO TID #120 tab 12/05/24 [Rx] Follow up Appointment(s)/Referral(s): Dagoberto Alicea DO [Doctor of Osteopathic Medicine] - 1 Week [facility] [NON-STAFF] - 2 Weeks [facility],Clinic [REFERRING] - 1 Week Florentino Roldan DO [Primary Care Provider] - 1-2 days Alexa Peters MD [STAFF PHYSICIAN] - 1 Week Activity/Diet/Wound Care/Special Instructions: Nonweightbearing to left foot Wound VAC to left foot wound therapy setting at 125 mmHg slow intensity with black granular foam, change Tuesdays and Saturdays Please, continue antibiotics as prescribed by ID. Follow up with PCP, vascular surgery, ID, GI Enlarged left inguinal lymph node: Could be reactive to recent femoral bypass, will need to be followed up o/p with repeat imaging Discharge Disposition: TRANSFER TO SNF/ECF
--- NOTE | 2024-12-05 16:01 | P.OP ---
Date of Procedure: 12/05/24 Preoperative Diagnosis: Open wound with necrotic tissue left foot, status post left transmetatarsal amputation and drainage of abscess. Postoperative Diagnosis: Same. Procedure(s) Performed: Bedside debridement left foot wound utilizing surgical scalpel down to the tendon level. Anesthesia: none Surgeon: Dagoberto Alicea Estimated Blood Loss (ml): 2 IV fluids (ml): 0 Urine output (ml): 0 Pathology: none sent Condition: stable Disposition: no change Indications for Procedure: Patient is a 74-year-old male with longstanding history of diabetes mellitus who previously undergone transmetatarsal amputation of the left foot. He had presented with gangrenous changes which extended onto the plantar surface of the foot. At the time of amputation debridement of the plantar surface was also performed. He was being treated with a wound VAC. He was admitted to the hospital for treatment of symptomatic anemia. Surgery was asked to reevaluate his left foot. This demonstrated generally excellent granulation tissue throughout the entirety of the open wound with no evidence of undermining or tunneling. There was some necrotic tissue which needed debridement. It was felt this could be done at the bedside. Description of Procedure: Patient was placed supine in his bed. Utilizing a surgical scalpel all necrotic tissue was debrided as best as possible down to and including the tendon level. Excellent bleeding characteristics were noted. Overall the wound appears to be granulating in well and is felt that the patient will eventually going to complete healing. The wound was treated with half-strength Dakin's solution until the wound VAC could be obtained and applied. Patient tolerated the procedure well.
[2024-12-05 17:03] LABS: Glucose,Whole Blood 238 mg/dL (70-110)
[2024-12-05 20:15] LABS: Glucose,Whole Blood 212 mg/dL (70-110)
--- NOTE | 2024-12-05 22:15 | P.PN ---
Subjective Progress Note Date: 12/05/24 Principal diagnosis: anemia In f/u today pt resting, denied fevers, N, gross bleeding, there is bleeding from toes wounds. Objective - Vital Signs Vital signs: Vital Signs Temp 98 F 12/05/24 11:59 Pulse 69 12/05/24 11:59 Resp 18 12/05/24 11:59 BP 99/43 12/05/24 11:59 Pulse Ox 97 12/05/24 11:59 FiO2 Intake & Output 12/04/24 12/05/24 12/05/24 18:59 06:59 18:59 Intake Total 600 Output Total 2100 1200 Balance -1500 -1200 Weight 82.554 kg Intake: Intake, IV Titration 600 Amount Cefepime 2 gm In Sodium 100 Chloride 0.9% 100 ml @ 25 mls/hr IVPB Q8HR [facility] Rx# :[id number] Vancomycin 1,500 mg In 500 Sodium Chloride 0.9% 500 ml 500 ml @ 167 mls/hr IVPB Q12HR@1000,2200 [facility] Rx#:[id number] Output: Urine 2100 1200 Other: Voiding Method Urinal Urinal - Constitutional General appearance: Present: average body habitus, cooperative, no acute distress - EENT Eyes: Present: anicteric sclerae, EOMI ENT: Present: hearing grossly normal - Respiratory Details: resp unlabored at rest - Cardiovascular Details: skin warm, well perfused - Peripheral edema leg Peripheral Edema: bilateral: None - Neurologic Neurologic: Present: CNII-XII intact - Musculoskeletal Musculoskeletal Comment(s): left toes wrapped, bloody dressing - Psychiatric Psychiatric: Present: A&O x's 3, appropriate affect, intact judgment & insight - Labs CBC & Chem 7: 12/05/24 04:54 12/05/24 09:19 Labs: Abnormal Lab Results - Last 24 Hours (Table) 12/04/24 12/04/24 12/05/24 Range/Units 17:21 20:41 04:54 RBC 2.52 L (4.40-5.60) X 10*6/uL Hgb 7.8 L (13.0-17.0) g/dL Hct 25.2 L (39.6-50.0) % MCV 100.0 H (80.0-97.0) FL MCHC 31.0 L (32.0-37.0) g/dL RDW 15.7 H (11.5-14.5) % MPV 9.2 L (9.5-12.2) FL Sodium (137-145) mmol/L Glucose (74-99) mg/dL POC Glucose (mg/dL) 191 H 255 H (70-110) mg/dL Calcium (8.4-10.2) mg/dL 12/05/24 12/05/24 12/05/24 Range/Units 07:04 09:19 12:03 RBC (4.40-5.60) X 10*6/uL Hgb (13.0-17.0) g/dL Hct (39.6-50.0) % MCV (80.0-97.0) FL MCHC (32.0-37.0) g/dL RDW (11.5-14.5) % MPV (9.5-12.2) FL Sodium 136 L (137-145) mmol/L Glucose 208 H (74-99) mg/dL POC Glucose (mg/dL) 127 H 213 H (70-110) mg/dL Calcium 8.3 L (8.4-10.2) mg/dL Microbiology - Last 24 Hours (Table) 12/02/24 17:00 Anaerobic Culture - Preliminary Foot - Left Prevotella species 12/02/24 17:00 Gram Stain - Final Foot - Left Wound Culture - Final Enterobacter cloacae Complex Escherichia coli Methicillin resist S. aureus Assessment and Plan (1) Acute on chronic anemia Current Visit: Yes Status: Acute Priority: Medium Code(s): D64.9 - ANEMIA, UNSPECIFIED SNOMED Code(s): 009283791 Plan: Anemia -Hgb 5.8 on admit, s/p 2 units, Hgb stable at 7.8 today -Anemia multifactorial-amputation of left toes/metatarsals last month with wound VAC, chronic imflammation and infection/osteomyelitis. He recently has graft for arterial occlusion of left lower extremity and is on dual antiplatelet therapy with Plavix and aspirin. -Iron studies post transfusion showed iron saturation 27% and ferritin 56.7, so iron would be interpreted as low. Started oral iron -Vitamin B12 low normal 274 and folate 24.9. Patient has received IM vitamin B12 and oral folate supplement. -Due to osteomyelitis, will hold IV iron and start oral iron. Continue Vit B12 and folate -Upper endoscopy performed, no gross findings, biopsies were neg for neoplasm. Pt was informed -Colon prep was poor, noted plans to prep and attempt procedure again -Informed pt recommendation is to cont supplements and f/u with Hematology in about 6-8 weeks to ensure Hgb return to normal. He verbalized understanding
[2024-12-06 07:24] LABS: Glucose,Whole Blood 123 mg/dL (70-110)
[2024-12-06 08:17] LABS: Basophils # (A) 0.03 X 10*3/uL (0.00-0.10); Basophils % (A) 0.7 %; Eosinophils # (A) 0.17 X 10*3/uL (0.04-0.35); Eosinophils % (A) 3.9 %; HCT 24.8 % (39.6-50.0); HGB 7.8 g/dL (13.0-17.0); Lymphocytes # (A) 0.85 X 10*3/uL (0.90-5.00); Lymphocytes % (A) 19.7 %; MCH 31.2 pg (27.0-32.0); MCHC 31.5 g/dL (32.0-37.0); MCV 99.2 FL (80.0-97.0); Mean Platelet Volume 9.5 FL (9.5-12.2); Monocytes # (A) 0.46 X 10*3/uL (0.20-1.00); Monocytes % (A) 10.7 %; NRBC Per 100 WBC 0 X 10*3/uL (0.00-0.01); Neutrophils # (A) 2.76 X 10*3/uL (1.80-7.70); Neutrophils % (A) 64.1 %; Platelet Count 226 X 10*3/uL (140-440); RDW 15.3 % (11.5-14.5); WBC 4.31 X 10*3/uL (4.50-10.00)
[2024-12-06 08:31] LABS: BUN/Creat Ratio 15.75 Ratio (12.00-20.00); Blood Urea Nitrogen 12.6 mg/dL (9.0-27.0); Calcium 8.2 mg/dL (8.7-10.3); Carbon Dioxide 26.9 mmol/L (21.6-31.8); Chloride 106 mmol/L (96-109); Glucose 112 mg/dL (70-110); Potassium 4.7 mmol/L (3.5-5.5); Sodium 141 mmol/L (135-145)
--- NOTE | 2024-12-06 10:11 | P.PN ---
Subjective Progress Note Date: 12/06/24 Principal diagnosis: Foot wound Patient seen and examined today as a follow-up. Yesterday he underwent debridement of his left foot. Wound VAC is in place with good suction. Plan is for discharge to [facility] subacute rehab. Objective - Vital Signs Vital signs: Vital Signs Temp 97.5 F L 12/06/24 07:18 Pulse 66 12/06/24 07:18 Resp 16 12/06/24 07:18 BP 121/67 12/06/24 07:18 Pulse Ox 99 12/06/24 07:18 FiO2 Intake & Output 12/05/24 12/06/24 12/06/24 18:59 06:59 18:59 Output Total 900 900 700 Balance -900 -900 -700 Weight 82.554 kg Output: Urine 900 900 700 Other: Voiding Method Urinal Urinal - Exam General appearance: The patient is alert, oriented, appears in no acute distress. HET: Head is normocephalic and atraumatic. Pupils are equal and reactive. Neck: Supple. Abdomen: Soft, nondistended. Extremities: Left lower extremity warm to the touch, patent bypass graft. Good capillary refill. Left foot with wound VAC in place with good suction with serosanguineous output. Neurological: Alert and oriented. - Labs CBC & Chem 7: 12/06/24 05:24 12/06/24 05:24 Labs: Abnormal Lab Results - Last 24 Hours (Table) 12/05/24 12/05/24 12/05/24 Range/Units 12:03 17:02 20:11 WBC (4.50-10.00) X 10*3/uL RBC (4.40-5.60) X 10*6/uL Hgb (13.0-17.0) g/dL Hct (39.6-50.0) % MCV (80.0-97.0) FL MCHC (32.0-37.0) g/dL RDW (11.5-14.5) % Lymphocytes # (0.90-5.00) X 10*3/uL Glucose (70-110) mg/dL POC Glucose (mg/dL) 213 H 238 H 212 H (70-110) mg/dL Calcium (8.7-10.3) mg/dL C-Reactive Protein (0.00-0.80) mg/dL 12/06/24 12/06/24 12/06/24 Range/Units 05:24 05:24 07:21 WBC 4.31 L (4.50-10.00) X 10*3/uL RBC 2.50 L (4.40-5.60) X 10*6/uL Hgb 7.8 L (13.0-17.0) g/dL Hct 24.8 L (39.6-50.0) % MCV 99.2 H (80.0-97.0) FL MCHC 31.5 L (32.0-37.0) g/dL RDW 15.3 H (11.5-14.5) % Lymphocytes # 0.85 L (0.90-5.00) X 10*3/uL Glucose 112 H (70-110) mg/dL POC Glucose (mg/dL) 123 H (70-110) mg/dL Calcium 8.2 L (8.7-10.3) mg/dL C-Reactive Protein 2.80 H (0.00-0.80) mg/dL Microbiology - Last 24 Hours (Table) 12/02/24 17:00 Anaerobic Culture - Final Foot - Left Prevotella species Assessment and Plan Assessment: 1. Recent right foot TMA revision and wound debridement, status post bedside d ebridement 2. Anemia, acute on chronic unclear etiology 3. Peripheral arterial disease status post recent left 5 pop bypass and left common femoral artery thromboendarterectomy Plan: 1. Bedside debridement, see procedure note 2. No plans for surgical debridement 3. Continue with wound VAC to left foot, change Monday, Monday and . 4. Patient will need continued formal wound care preferably with wound care center Discussed with patient healing time likely 1 to 2 months, patient has had multiple revascularization with good blood flow to left foot. No indication or plans for below the knee amputation. Thank you for this consultation, patient is cleared from vascular surgery for discharge. We will sign off at this time. The impression and plan of care has been dictated as directed. Dr. Giovanni Melchor I performed a history and examination of this patient, discussed the same with the dictator. I agree with the dictator's note ,documented as a scribe. Any additional findings or plans will be noted.
[2024-12-06 12:15] LABS: Glucose,Whole Blood 254 mg/dL (70-110)
--- NOTE | 2024-12-06 13:15 | P.PN ---
Subjective Progress Note Date: 12/06/24 SURGICAL PROGRESS NOTE CHIEF COMPLAINT: Anemia HISTORY OF PRESENT ILLNESS: No new complaints. Patient reports brown stools. Denies any abdominal pain. Status post EGD reporting gastritis. Colonoscopy not completed due to poor polyp prep. Afebrile. Hemoglobin 7.8. Per nursing staff patient is to be discharged to [facility] on Monday PHYSICAL EXAM: VITAL SIGNS: Reviewed. GENERAL: Well-developed in no acute distress. ABDOMEN: Soft. Nondistended. Nontender. NEUROLOGIC: Alert and oriented. Cranial nerves II through XII grossly intact. ASSESSMENT: 1. Chronic anemia. No GI source of bleeding PLAN: - Continue PPI for gastritis - Patient is refusing colonoscopy at this time - Okay to resume Plavix from surgical standpoint Physician Egg Smeller note has been reviewed by physician. Signing provider agrees with the documented findings, assessment, and plan of care. Objective - Vital Signs Vital signs: Vital Signs Temp 97.9 F 12/06/24 12:07 Pulse 66 12/06/24 12:07 Resp 16 12/06/24 12:07 BP 122/64 12/06/24 12:07 Pulse Ox 98 12/06/24 12:07 FiO2 Intake & Output 12/05/24 12/06/24 12/06/24 18:59 06:59 18:59 Output Total 715 347 8974 Balance -900 -900 -1500 Weight 82.554 kg Output: Urine 630 840 1701 Other: Voiding Method Urinal Urinal Urinal - Labs CBC & Chem 7: 12/06/24 05:24 12/06/24 05:24 Labs: Abnormal Lab Results - Last 24 Hours (Table) 12/05/24 12/05/24 12/06/24 Range/Units 17:02 20:11 05:24 WBC 4.31 L (4.50-10.00) X 10*3/uL RBC 2.50 L (4.40-5.60) X 10*6/uL Hgb 7.8 L (13.0-17.0) g/dL Hct 24.8 L (39.6-50.0) % MCV 99.2 H (80.0-97.0) FL MCHC 31.5 L (32.0-37.0) g/dL RDW 15.3 H (11.5-14.5) % Lymphocytes # 0.85 L (0.90-5.00) X 10*3/uL Glucose (70-110) mg/dL POC Glucose (mg/dL) 238 H 212 H (70-110) mg/dL Calcium (8.7-10.3) mg/dL C-Reactive Protein (0.00-0.80) mg/dL 12/06/24 12/06/24 12/06/24 Range/Units 05:24 07:21 12:10 WBC (4.50-10.00) X 10*3/uL RBC (4.40-5.60) X 10*6/uL Hgb (13.0-17.0) g/dL Hct (39.6-50.0) % MCV (80.0-97.0) FL MCHC (32.0-37.0) g/dL RDW (11.5-14.5) % Lymphocytes # (0.90-5.00) X 10*3/uL Glucose 112 H (70-110) mg/dL POC Glucose (mg/dL) 123 H 254 H (70-110) mg/dL Calcium 8.2 L (8.7-10.3) mg/dL C-Reactive Protein 2.80 H (0.00-0.80) mg/dL Microbiology - Last 24 Hours (Table) 12/02/24 17:00 Anaerobic Culture - Final Foot - Left Prevotella species
[2024-12-06 13:48] LABS: Erythrocyte Sedimentation Rate 31 mm/Hr (0-20)
--- NOTE | 2024-12-06 15:05 | P.PN ---
Subjective Progress Note Date: 12/06/24 Principal diagnosis: Reason for follow-up is infected left foot wound Patient is a 74-year-old male with multiple comorbidities admitted to hospital for symptomatic anemia in this patient also getting treatment for his left foot infected wound with the previous culture positive for Enterobacter however the culture this admission not growing Enterobacter E. coli MRSA and Prevotella. On today's evaluation that is 12/06/2024, the patient continues to be afebrile, the patient is on room air and breathing comfortably, the Pt denies having any chest pain or cough, the patient denies having any abdominal pain no vomiting or any diarrhea, pain to the left foot is currently controlled. Patient white count is 4.31, creatinine 0.8 Objective - Vital Signs Vital signs: Vital Signs Temp 97.5 F L 12/06/24 07:18 Pulse 66 12/06/24 07:18 Resp 16 12/06/24 07:18 BP 121/67 12/06/24 07:18 Pulse Ox 99 12/06/24 07:18 FiO2 Intake & Output 12/05/24 12/06/24 12/06/24 18:59 06:59 18:59 Output Total 900 900 700 Balance -900 -900 -700 Weight 82.554 kg Output: Urine 900 900 700 Other: Voiding Method Urinal Urinal Urinal - Exam GENERAL DESCRIPTION: An elderly male lying in bed in no distress RESPIRATORY SYSTEM: Unlabored breathing , decreased breath sounds at bases HEART: S1 S2 regular rate and rhythm , ABDOMEN: Soft , no tenderness EXTREMITIES: Left foot wound is covered with a wound VAC - Labs CBC & Chem 7: 12/06/24 05:24 12/06/24 05:24 Labs: Abnormal Lab Results - Last 24 Hours (Table) 12/05/24 12/05/24 12/05/24 Range/Units 12:03 17:02 20:11 WBC (4.50-10.00) X 10*3/uL RBC (4.40-5.60) X 10*6/uL Hgb (13.0-17.0) g/dL Hct (39.6-50.0) % MCV (80.0-97.0) FL MCHC (32.0-37.0) g/dL RDW (11.5-14.5) % Lymphocytes # (0.90-5.00) X 10*3/uL Glucose (70-110) mg/dL POC Glucose (mg/dL) 213 H 238 H 212 H (70-110) mg/dL Calcium (8.7-10.3) mg/dL C-Reactive Protein (0.00-0.80) mg/dL 12/06/24 12/06/24 12/06/24 Range/Units 05:24 05:24 07:21 WBC 4.31 L (4.50-10.00) X 10*3/uL RBC 2.50 L (4.40-5.60) X 10*6/uL Hgb 7.8 L (13.0-17.0) g/dL Hct 24.8 L (39.6-50.0) % MCV 99.2 H (80.0-97.0) FL MCHC 31.5 L (32.0-37.0) g/dL RDW 15.3 H (11.5-14.5) % Lymphocytes # 0.85 L (0.90-5.00) X 10*3/uL Glucose 112 H (70-110) mg/dL POC Glucose (mg/dL) 123 H (70-110) mg/dL Calcium 8.2 L (8.7-10.3) mg/dL C-Reactive Protein 2.80 H (0.00-0.80) mg/dL Microbiology - Last 24 Hours (Table) 12/02/24 17:00 Anaerobic Culture - Final Foot - Left Prevotella species Assessment and Plan (1) MRSA (methicillin resistant staph aureus) culture positive Current Visit: Yes Status: Acute Code(s): Z22.322 - CARRIER OR SUSPECTED CARRIER OF METHICILLIN RESIS STAPH SNOMED Code(s): 426022765 (2) Foot osteomyelitis, left Current Visit: Yes Status: Acute Code(s): M86.9 - OSTEOMYELITIS, UNSPECIFIED SNOMED Code(s): 9392110446056464 (3) Wound of left foot Current Visit: Yes Status: Acute Code(s): S91.302A - UNSPECIFIED OPEN WOUND, LEFT FOOT, INITIAL ENCOUNTER SNOMED Code(s): 32357138362320621 (4) Diabetic foot infection Current Visit: No Status: Acute Code(s): E11.628 - TYPE 2 DIABETES MELLITUS WITH OTHER SKIN COMPLICATIONS; L08.9 - LOCAL INFECTION OF THE SKIN AND SUBCUTANEOUS TISSUE, UNSP SNOMED Code(s): 480719414 Plan: 1patient with a chronic nonhealing wound to the left foot in this patient with initial admission to hospital for gangrenous toe followed by vascular intervention and did have a transmetatarsal amputation with initial culture with MSSA repeat culture on 10/25/2024 grew Enterobacter for the patient was getting cefepime however the culture done this admission on 12/02/2024 for now growing MRSA E. coli and Enterobacter and also anaerobe Prevotella 2-patient currently being treated with cefepime, vancomycin pharmacy dose and Flagyl is currently waiting for placement transferred to [facility], where he will continue with his IV antibiotic therapy Dictation was produced using [employer] dictation software. please excuse any grammatical, word or spelling errors. Time with Patient: Less than 30
--- NOTE | 2024-12-06 15:26 | P.PN ---
Subjective Progress Note Date: 12/06/24 Hospital Course: a 74-year-old male with past medical history of left foot osteomyelitis status post transmetatarsal amputation and debridement on IV cefepime, PAD s/p left common femoral thromboendarterectomy with left femoral to popliteal bypass, [id number] type II DM, history of DVT not on anticoagulation, hyperlipidemia, BPH, chronic tobacco use, peripheral neuropathy, ho is pr esenting the emergency department after being sent from [facility] on the [place] due to low hemoglobin. He has a history of requiring blood transfusion. Not currently on blood thinners denies any hematochezia or melena. Hemoglobin on arrival 5.8, patient admitted for further management of acute anemia requiring blood transfusion, general surgery consulted for EGD and colonoscopy, hematology oncology consulted EGD was done on 12/02, no evidence of upper GI bleed, antral gastritis noticed. Colonoscopy not performed due to poor preparation, patient refused repeat. Oncology recommended to hold on IV iron due to active osteomyelitis, iron saturation 27%, ferritin 56.7, B12 274 and folate 24.9. Patient hemoglobin stabilized, continue with PPI, tolerates regular diet. Patient has been complaining of worsening wound, his wound VAC was taken off on admission, wound care consult on 11/28/2024, today on 12/03/2024 patient has not been seen, discussed with RN and case management, trying to reach out wound care team, Dr. Alicea consulted in the meantime. Patient is afebrile, his WBC count is normal, hemoglobin is 8.3, stable, normal electrolytes and creatinine 0.65, blood glucose fluctuates. 12/04/2024: Seen and examined at bedside, wound cultures growing presumptive MRSA, E. coli, Enterobacter cloacae, she was started on vancomycin, ID consulted. Continues to be afebrile, WBC 4.08, hemoglobin 7.5 surgery recommends resuming Plavix and monitor CBC. 12/05 vascular surgery performed bedside debridement and placed wound VAC back on, cleared patient for discharge. No indication or plans for below the knee amputation.Discussed with ID, patient cleared for discharge, will be on vancomycin, cefepime and oral Flagyl for 3 to 4 weeks with close follow-up, ID placed order. Follow up with vascular surgery, GI, [facility]CP. [facility], discussed with social work. 12/06: Patient seen and examined at bedside, no acute events overnight, no active complaints, awaiting placement. Continue antibiotics. Pertinent positives and negatives as discussed above, a complete review of systems was performed and all other systems are negative. Vitals Signs Reviewed. General: [nontoxic], [no distress], [appears at stated age] Derm: [warm], [dry] Head: [atraumatic], [normocephalic], [symmetric] Eyes: [EOMI], [no lid lag], [anicteric sclera] Mouth: [no lip lesion], [mucus membranes moist] Cardiovascular: [S1S2 reg], [no murmur] Lungs: [CTA bilateral], [no rhonchi, no rales] , [no accessory muscle use] Abdominal: [soft], [ nontender to palpation], [no guarding], [no appreciable organomegaly] Ext: TMA, wound VAC in place Neuro: [ CN II-XI grossly intact], [no focal neuro deficits] Psych: [Alert], [oriented], [appropriate affect] Assessment and Plan: Acute macrocytic anemia, multifactorial Iron deficiency anemia Blood loss from recent TMA on 10/31 Antral gastritis per EGD 12/02 -Iron status as above, folate and B12 as above - Holding ASA, cilostazol, Plavix, continue oral ferric gluconate 125 mg p.o. daily, cyanocobalamin 1000 mcg IM daily - Refused repeat colonoscopy -Hemoglobin 7.8 stable, no leukocytosis, platelet count normal, ESR 35, trending down from 79 in October - Lipids stabilized, no need to repeat 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 coli, Enterobacter cloacae -Started on vancomycin SOT 12/25, ID consulted, appreciate recommendations, will monitor BMP daily for nephrotoxicity -Continue IV cefepime 2 g 3 times daily, Flagyl oral 500 3 times daily -Pain management with Percocet 10 Q4H PRN + Gabapentin 400 mg PO TID. Wound care consulted. Patient is now n.p.o. at midnight - Vascular surgery signed off after wound VAC placement, patient to follow-up with vascular surgery at discharge -Inflammatory markers stable from before Fiy-mefkiup-beipocxch type 2 diabetes mellitus: ISS + Accuchecks ACHS along with hypoglycemic precautions. History of DVT not currently on anticoagulation, Duplex US 11/28 negative for DVT Enlarged left inguinal lymph node: Could be reactive to recent femoral bypass, will need to be followed up o/p with repeat imaging Hyperlipidemia: Lipitor 80 mg PO QHS. BPH: Flomax 0.8 mg PO QHS. Chronic tobacco use Peripheral neuropathy: Pain management as above. DVT ppx: SCD Code status: Full code Anticipated discharge place: [place] Anticipated discharge time: Monday Objective - Vital Signs Vital signs: Vital Signs Temp 97.9 F 12/06/24 12:07 Pulse 66 12/06/24 12:07 Resp 16 12/06/24 12:07 BP 122/64 12/06/24 12:07 Pulse Ox 98 12/06/24 12:07 FiO2 Intake & Output 12/05/24 12/06/24 12/06/24 18:59 06:59 18:59 Output Total 315 348 5776 Balance -900 -900 -1500 Weight 82.554 kg Output: Urine 226 754 1242 Other: Voiding Method Urinal Urinal Urinal # Bowel Movements 3 - Labs CBC & Chem 7: 12/06/24 05:24 12/06/24 05:24 Labs: Abnormal Lab Results - Last 24 Hours (Table) 12/05/24 12/05/24 12/06/24 Range/Units 17:02 20:11 05:24 WBC 4.31 L (4.50-10.00) X 10*3/uL RBC 2.50 L (4.40-5.60) X 10*6/uL Hgb 7.8 L (13.0-17.0) g/dL Hct 24.8 L (39.6-50.0) % MCV 99.2 H (80.0-97.0) FL MCHC 31.5 L (32.0-37.0) g/dL RDW 15.3 H (11.5-14.5) % Lymphocytes # 0.85 L (0.90-5.00) X 10*3/uL ESR 31 H (0-20) mm/Hr Glucose (70-110) mg/dL POC Glucose (mg/dL) 238 H 212 H (70-110) mg/dL Calcium (8.7-10.3) mg/dL C-Reactive Protein (0.00-0.80) mg/dL 12/06/24 12/06/24 12/06/24 Range/Units 05:24 07:21 12:10 WBC (4.50-10.00) X 10*3/uL RBC (4.40-5.60) X 10*6/uL Hgb (13.0-17.0) g/dL Hct (39.6-50.0) % MCV (80.0-97.0) FL MCHC (32.0-37.0) g/dL RDW (11.5-14.5) % Lymphocytes # (0.90-5.00) X 10*3/uL ESR (0-20) mm/Hr Glucose 112 H (70-110) mg/dL POC Glucose (mg/dL) 123 H 254 H (70-110) mg/dL Calcium 8.2 L (8.7-10.3) mg/dL C-Reactive Protein 2.80 H (0.00-0.80) mg/dL Microbiology - Last 24 Hours (Table) 12/02/24 17:00 Anaerobic Culture - Final Foot - Left Prevotella species
[2024-12-06 17:09] LABS: Glucose,Whole Blood 237 mg/dL (70-110)
[2024-12-06 20:23] LABS: Glucose,Whole Blood 204 mg/dL (70-110)
[2024-12-07 07:18] LABS: Glucose,Whole Blood 127 mg/dL (70-110)
--- NOTE | 2024-12-07 08:41 | P.PN ---
Subjective Progress Note Date: 12/07/24 Patient willis stable. His hemoglobin is stable at 7.8. He has had no evidence of GI bleed. On exam vital signs appear stable abdomen soft. Anemia. Patient does not wish to have colonoscopy formed. Objective - Vital Signs Vital signs: Vital Signs Temp 97.6 F 12/07/24 07:12 Pulse 66 12/07/24 07:12 Resp 16 12/07/24 07:12 BP 117/61 12/07/24 07:12 Pulse Ox 97 12/07/24 07:12 FiO2 Intake & Output 12/06/24 12/07/24 12/07/24 18:59 06:59 18:59 Intake Total 1594 Output Total 2104 1200 Balance -510 -1200 Intake: Oral 1594 Output: Urine 2104 1200 Other: Voiding Method Urinal Urinal # Bowel Movements 3 - Labs CBC & Chem 7: 12/06/24 05:24 12/06/24 05:24 Labs: Abnormal Lab Results - Last 24 Hours (Table) 12/06/24 12/06/24 12/06/24 Range/Units 05:24 12:10 17:06 ESR 31 H (0-20) mm/Hr POC Glucose (mg/dL) 254 H 237 H (70-110) mg/dL 12/06/24 12/07/24 Range/Units 20:21 07:16 ESR (0-20) mm/Hr POC Glucose (mg/dL) 204 H 127 H (70-110) mg/dL
--- NOTE | 2024-12-07 09:05 | P.PN ---
Subjective Progress Note Date: 12/07/24 Hospital Course: a 74-year-old male with past medical history of left foot osteomyelitis status post transmetatarsal amputation and debridement on IV cefepime, PAD s/p left common femoral thromboendarterectomy with left femoral to popliteal bypass, [id number]-hfvisxyss type II DM, history of DVT not on anticoagulation, hyperlipidemia, BPH, chronic tobacco use, peripheral neuropathy, ho is pr esenting the emergency department after being sent from [facility] on the [place] due to low hemoglobin. He has a history of requiring blood transfusion. Not currently on blood thinners denies any hematochezia or melena. Hemoglobin on arrival 5.8, patient admitted for further management of acute anemia requiring blood transfusion, general surgery consulted for EGD and colonoscopy, hematology oncology consulted EGD was done on 12/02, no evidence of upper GI bleed, antral gastritis noticed. Colonoscopy not performed due to poor preparation, patient refused repeat. Oncology recommended to hold on IV iron due to active osteomyelitis, iron saturation 27%, ferritin 56.7, B12 274 and folate 24.9. Patient hemoglobin stabilized, continue with PPI, tolerates regular diet. Patient has been complaining of worsening wound, his wound VAC was taken off on admission, wound care consult on 11/28/2024, today on 12/03/2024 patient has not been seen, discussed with RN and case management, trying to reach out wound care team, Dr. Alicea consulted in the meantime. Patient is afebrile, his WBC count is normal, hemoglobin is 8.3, stable, normal electrolytes and creatinine 0.65, blood glucose fluctuates. 12/04/2024: Seen and examined at bedside, wound cultures growing presumptive MRSA, E. coli, Enterobacter cloacae, she was started on vancomycin, ID consulted. Continues to be afebrile, WBC 4.08, hemoglobin 7.5 surgery recommends resuming Plavix and monitor CBC. 12/05 vascular surgery performed bedside debridement and placed wound VAC back on, cleared patient for discharge. No indication or plans for below the knee amputation.Discussed with ID, patient cleared for discharge, will be on vancomycin, cefepime and oral Flagyl for 3 to 4 weeks with close follow-up, ID placed order. Follow up with vascular surgery, GI, PCP. [facility], discussed with social work. 12/07: Patient seen and examined at bedside, no acute events overnight, no active complaints, awaiting placement. Continue antibiotics. Pertinent positives and negatives as discussed above, a complete review of systems was performed and all other systems are negative. Vitals Signs Reviewed. General: [nontoxic], [no distress], [appears at stated age] Derm: [warm], [dry] Head: [atraumatic], [normocephalic], [symmetric] Eyes: [EOMI], [no lid lag], [anicteric sclera] Mouth: [no lip lesion], [mucus membranes moist] Cardiovascular: [S1S2 reg], [no murmur] Lungs: [CTA bilateral], [no rhonchi, no rales] , [no accessory muscle use] Abdominal: [soft], [ nontender to palpation], [no guarding], [no appreciable organomegaly] Ext: TMA, wound VAC in place Neuro: [ CN II-XI grossly intact], [no focal neuro deficits] Psych: [Alert], [oriented], [appropriate affect] Assessment and Plan: Acute macrocytic anemia, multifactorial Iron deficiency anemia Blood loss from recent TMA on 10/31 Antral gastritis per EGD 12/02 -Iron status as above, folate and B12 as above - Holding ASA, cilostazol, Plavix, continue oral ferric gluconate 125 mg p.o. daily, cyanocobalamin 1000 mcg IM daily - Refused repeat colonoscopy -Hemoglobin 7.8 stable, no leukocytosis, platelet count normal, ESR 35, trending down from 79 in October - Lipids stabilized, no need to repeat 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 coli, Enterobacter cloacae -Started on vancomycin SOT 12/25, ID consulted, appreciate recommendations, will monitor BMP daily for nephrotoxicity -Continue IV cefepime 2 g 3 times daily, Flagyl oral 500 3 times daily -Pain management with Percocet 10 Q4H PRN + Gabapentin 400 mg PO TID. Wound care consulted. Patient is now n.p.o. at midnight - Vascular surgery signed off after wound VAC placement, patient to follow-up with vascular surgery at discharge -Inflammatory markers stable from before Ktx-cibjjwg-iysudmknt type 2 diabetes mellitus: ISS + Accuchecks ACHS along with hypoglycemic precautions. History of DVT not currently on anticoagulation, Duplex US 11/28 negative for DVT Enlarged left inguinal lymph node: Could be reactive to recent femoral bypass, will need to be followed up o/p with repeat imaging Hyperlipidemia: Lipitor 80 mg PO QHS. BPH: Flomax 0.8 mg PO QHS. Chronic tobacco use Peripheral neuropathy: Pain management as above. DVT ppx: SCD Code status: Full code Anticipated discharge place: [place] Anticipated discharge time: Monday Objective - Vital Signs Vital signs: Vital Signs Temp 97.6 F 12/07/24 07:12 Pulse 66 12/07/24 07:12 Resp 16 12/07/24 07:12 BP 117/61 12/07/24 07:12 Pulse Ox 97 12/07/24 07:12 FiO2 Intake & Output 12/06/24 12/07/24 12/07/24 18:59 06:59 18:59 Intake Total 1594 Output Total 2104 1200 Balance -510 -1200 Intake: Oral 1594 Output: Urine 2104 1200 Other: Voiding Method Urinal Urinal # Bowel Movements 3 - Labs CBC & Chem 7: 12/06/24 05:24 12/06/24 05:24 Labs: Abnormal Lab Results - Last 24 Hours (Table) 12/06/24 12/06/24 12/06/24 Range/Units 05:24 12:10 17:06 ESR 31 H (0-20) mm/Hr POC Glucose (mg/dL) 254 H 237 H (70-110) mg/dL 12/06/24 12/07/24 Range/Units 20:21 07:16 ESR (0-20) mm/Hr POC Glucose (mg/dL) 204 H 127 H (70-110) mg/dL
[2024-12-07] MEDS: VANCOMYCIN TROUGH DUE 1 EACH MISC MISCELLANE ONE (10:00)
[2024-12-07 12:09] LABS: Glucose,Whole Blood 225 mg/dL (70-110)
[2024-12-07] MEDS: VANCOMYCIN 1,500 MG in SODIUM CHLORIDE 0.9% 500 ML 500 ML IVPB SCH (13:44)
[2024-12-07 17:06] LABS: Glucose,Whole Blood 229 mg/dL (70-110)
[2024-12-07 20:18] LABS: Glucose,Whole Blood 253 mg/dL (70-110)
[2024-12-08] MEDS: CEFEPIME 2 GM in SODIUM CHLORIDE 0.9% 100 ML IVPB SCH (06:03)
[2024-12-08 07:05] LABS: Glucose,Whole Blood 131 mg/dL (70-110)
[2024-12-08 12:14] LABS: Glucose,Whole Blood 259 mg/dL (70-110)
--- NOTE | 2024-12-08 12:18 | P.PN ---
Subjective Progress Note Date: 12/08/24 Hospital Course: a 74-year-old male with past medical history of left foot osteomyelitis status post transmetatarsal amputation and debridement on IV cefepime, PAD s/p left common femoral thromboendarterectomy with left femoral to popliteal bypass, htn-clstval-aeekbtcxx type II DM, history of DVT not on anticoagulation, hyperlipidemia, BPH, chronic tobacco use, peripheral neuropathy, ho is pr esenting the emergency department after being sent from [facility] on the [place] due to low hemoglobin. He has a history of requiring blood transfusion. Not currently on blood thinners denies any hematochezia or melena. Hemoglobin on arrival 5.8, patient admitted for further management of acute anemia requiring blood transfusion, general surgery consulted for EGD and colonoscopy, hematology oncology consulted EGD was done on 12/02, no evidence of upper GI bleed, antral gastritis noticed. Colonoscopy not performed due to poor preparation, patient refused repeat. Oncology recommended to hold on IV iron due to active osteomyelitis, iron saturation 27%, ferritin 56.7, B12 274 and folate 24.9. Patient hemoglobin stabilized, continue with PPI, tolerates regular diet. Patient has been complaining of worsening wound, his wound VAC was taken off on admission, wound care consult on 11/28/2024, today on 12/03/2024 patient has not been seen, discussed with RN and case management, trying to reach out wound care team, Dr. Alicea consulted in the meantime. wound cultures growing presumptive MRSA, E. coli, Enterobacter cloacae, she was started on vancomycin, ID consulted. 12/05 vascular surgery performed bedside debridement and placed wound VAC back on, cleared patient for discharge. No indication or plans for below the knee amputation.Discussed with ID, patient cleared for discharge, will be on vancomycin, cefepime and oral Flagyl for 3 to 4 weeks with close follow-up, ID placed order. Follow up with vascular surgery, GI, PCP. [facility], discussed with social work. 12/08: Patient seen and examined at bedside, no acute events overnight, no active complaints, awaiting placement. Continue antibiotics. Patient declined stool softeners, he feels that he will have a bowel movement today Pertinent positives and negatives as discussed above, [facility] and all other systems are negative. Vitals Signs Reviewed. General: [nontoxic], [no distress], [appears at stated age] Derm: [warm], [dry] Head: [atraumatic], [normocephalic], [symmetric] Eyes: [EOMI], [no lid lag], [anicteric sclera] Mouth: [no lip lesion], [mucus membranes moist] Cardiovascular: [S1S2 reg], [no murmur] Lungs: [CTA bilateral], [no rhonchi, no rales] , [no accessory muscle use] Abdominal: [soft], [ nontender to palpation], [no guarding], [no appreciable organomegaly] Ext: TMA, wound VAC in place Neuro: [ CN II-XI grossly intact], [no focal neuro deficits] Psych: [Alert], [oriented], [appropriate affect] Assessment and Plan: Acute macrocytic anemia, multifactorial Iron deficiency anemia Blood loss from recent TMA on 10/31 Antral gastritis per EGD 12/02 -Iron status as above, folate and B12 as above - Aspirin, Plavix, continue oral ferric gluconate 125 mg p.o. daily, cyanocobalamin 1000 mcg IM daily - Refused repeat colonoscopy -Hemoglobin 7.8 stable, no leukocytosis, platelet count normal, ESR 35, trending down from 79 in October - Hb stabilized, no need to repeat, aspirin and Plavix resumed 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 coli, Enterobacter cloacae -Started on vancomycin SOT 12/25, ID consulted, appreciate recommendations, will monitor BMP daily for nephrotoxicity -Continue IV cefepime 2 g 3 times daily, Flagyl oral 500 3 times daily -Pain management with Percocet 10 Q4H PRN + Gabapentin 400 mg PO TID. Wound care consulted. Patient is now n.p.o. at midnight - Vascular surgery signed off after wound VAC placement, patient to follow-up with vascular surgery at discharge -Inflammatory markers stable from before Ipl-xzmpgcp-dfihdkfpr type 2 diabetes mellitus: ISS + Accuchecks ACHS along with hypoglycemic precautions. History of DVT not currently on anticoagulation, Duplex US 11/28 negative for DVT Enlarged left inguinal lymph node: Could be reactive to recent femoral bypass, will need to be followed up o/p with repeat imaging Hyperlipidemia: Lipitor 80 mg PO QHS. BPH: Flomax 0.8 mg PO QHS. Chronic tobacco use Peripheral neuropathy: Pain management as above. DVT ppx: SCD Code status: Full code Anticipated discharge place: [place] Anticipated discharge time: Monday Objective - Vital Signs Vital signs: Vital Signs Temp 97.7 F 12/08/24 07:01 Pulse 71 12/08/24 07:01 Resp 16 12/08/24 07:01 BP 126/59 12/08/24 07:01 Pulse Ox 95 12/08/24 07:01 FiO2 Intake & Output 12/07/24 12/08/24 12/08/24 18:59 06:59 18:59 Intake Total 1594 500 Output Total 1500 1000 700 Balance 94 -1000 -200 Intake: Intake, IV Titration 500 Amount Vancomycin 1,500 mg In 500 Sodium Chloride 0.9% 500 ml 500 ml @ 167 mls/hr IVPB Q12HR@1000,2200 [facility] Rx#:[id number] Oral 1594 Output: Urine 1500 1000 700 Stool 0 Other: Voiding Method Urinal Urinal Urinal # Voids 2 0 # Bowel Movements 0 # Emeses 0 - Labs CBC & Chem 7: 12/06/24 05:24 12/06/24 05:24 Labs: Abnormal Lab Results - Last 24 Hours (Table) 12/07/24 12/07/24 12/08/24 Range/Units 17:03 20:16 07:04 POC Glucose (mg/dL) 229 H 253 H 131 H (70-110) mg/dL 12/08/24 Range/Units 12:12 POC Glucose (mg/dL) 259 H (70-110) mg/dL
[2024-12-08 17:16] LABS: Glucose,Whole Blood 155 mg/dL (70-110)
--- NOTE | 2024-12-08 17:40 | P.PN ---
Subjective Progress Note Date: 12/08/24 Principal diagnosis: Reason for follow-up is infected left foot wound Patient is a 74-year-old male with multiple comorbidities admitted to hospital for symptomatic anemia in this patient also getting treatment for his left foot infected wound with the previous culture positive for Enterobacter however the culture this admission not growing Enterobacter E. coli MRSA and Prevotella. On today's evaluation that is 12/08/2024, Patient is afebrile patient is currently on room air and denies having any shortness of breath, the patient denies any chest pain or cough, the patient denies any nausea vomiting did not have any abdominal pain and no diarrhea has been complaining of pain to the left calf area. No new lab has been obtained today Objective - Vital Signs Vital signs: Vital Signs Temp 98.3 F 12/08/24 12:11 Pulse 68 12/08/24 12:11 Resp 16 12/08/24 12:11 BP 120/55 12/08/24 12:11 Pulse Ox 95 12/08/24 12:11 FiO2 Intake & Output 12/07/24 12/08/24 12/08/24 18:59 06:59 18:59 Intake Total 1594 1794 Output Total 1500 1000 2100 Balance 94 -1000 -306 Intake: Intake, IV Titration 500 Amount Vancomycin 1,500 mg In 500 Sodium Chloride 0.9% 500 ml 500 ml @ 167 mls/hr IVPB Q12HR@1000,2200 [facility] Rx#:[id number] Oral 1594 1294 Output: Urine 1500 1000 2100 Stool 0 Other: Voiding Method Urinal Urinal Urinal # Voids 2 0 2 # Bowel Movements 0 # Emeses 0 - Exam GENERAL DESCRIPTION: An elderly male lying in bed in no distress RESPIRATORY SYSTEM: Unlabored breathing , decreased breath sounds at bases HEART: S1 S2 regular rate and rhythm , ABDOMEN: Soft , no tenderness EXTREMITIES: Left foot wound is covered with a wound VAC - Labs CBC & Chem 7: 12/06/24 05:24 12/06/24 05:24 Labs: Abnormal Lab Results - Last 24 Hours (Table) 12/07/24 12/08/24 12/08/24 Range/Units 20:16 07:04 12:12 POC Glucose (mg/dL) 253 H 131 H 259 H (70-110) mg/dL 12/08/24 Range/Units 17:14 POC Glucose (mg/dL) 155 H (70-110) mg/dL Assessment and Plan (1) MRSA (methicillin resistant staph aureus) culture positive Current Visit: Yes Status: Acute Code(s): Z22.322 - CARRIER OR SUSPECTED CARRIER OF METHICILLIN RESIS STAPH SNOMED Code(s): 922246474 (2) Foot osteomyelitis, left Current Visit: Yes Status: Acute Code(s): M86.9 - OSTEOMYELITIS, UNSPECIFIED SNOMED Code(s): 0440128436637501 (3) Wound of left foot Current Visit: Yes Status: Acute Code(s): S91.302A - UNSPECIFIED OPEN WOUND, LEFT FOOT, INITIAL ENCOUNTER SNOMED Code(s): 28200326913804227 (4) Diabetic foot infection Current Visit: No Status: Acute Code(s): E11.628 - TYPE 2 DIABETES MELLITUS WITH OTHER SKIN COMPLICATIONS; L08.9 - LOCAL INFECTION OF THE SKIN AND SUBCUTANEOUS TISSUE, UNSP SNOMED Code(s): 975407643 Plan: 1patient with a chronic nonhealing wound to the left foot in this patient with initial admission to hospital for gangrenous toe followed by vascular intervention and did have a transmetatarsal amputation with initial culture with MSSA repeat culture on 10/25/2024 grew Enterobacter for the patient was getting cefepime however the culture done this admission on 12/02/2024 for now growing MRSA E. coli and Enterobacter and also anaerobe Prevotella 2-[facility] and for now continue with cefepime, vancomycin pharmacy dose and Flagyl 3patient complaining of pain to the left calf area this has some swelling we will check a Doppler ultrasound Dictation was produced using [employer] dictation software. please excuse any grammatical, word or spelling errors. Time with Patient: Less than 30
[2024-12-08 20:31] LABS: Glucose,Whole Blood 221 mg/dL (70-110)
[2024-12-09 06:57] LABS: Glucose,Whole Blood 124 mg/dL (70-110)
[2024-12-09 07:32] VITALS: BP 133/70; PULSE 72; RESP 18; TEMP 97.8
[2024-12-09 10:17] LABS: Basophils # (A) 0.03 10*3/uL (0.00-0.10); Basophils % (A) 0.6 %; Eosinophils # (A) 0.16 10*3/uL (0.04-0.35); Eosinophils % (A) 3.1 %; HCT 26.3 % (39.6-50.0); HGB 8.3 g/dL (13.0-17.0); Lymphocytes # (A) 0.58 10*3/uL (0.90-5.00); Lymphocytes % (A) 11.1 %; MCHC 31.6 g/dL (32.0-37.0); MCV 98.1 fL (80.0-97.0); Mean Platelet Volume 9.3 fL (9.5-12.2); Monocytes # (A) 0.45 10*3/uL (0.20-1.00); Monocytes % (A) 8.6 %; Neutrophils # (A) 3.95 10*3/uL (1.80-7.70); Neutrophils % (A) 75.5 %; Platelet Count 223 10*3/uL (140-440); RBC 2.68 10*6/uL (4.40-5.60); RDW 14.7 % (11.5-14.5); WBC 5.23 10*3/uL (4.50-10.00)
[2024-12-09 10:33] LABS: ALT 9 U/L (4-49); AST 13 U/L (17-59); African American GFR (CKD) >90 (>60 ml/min/1.73 sqM); Albumin 2.9 g/dL (3.5-5.0); Albumin/Globulin Ratio 1.2; Alkaline Phosphatase 85 U/L (38-126); Anion Gap 7 mmol/L; Blood Urea Nitrogen 15 mg/dL (9-20); C Reactive Protein 4.4 mg/dL (<1.0); Calcium 8.7 mg/dL (8.4-10.2); Carbon Dioxide 29 mmol/L (22-30); Chloride 99 mmol/L (98-107); Globulin 2.5 g/dL; Glucose 247 mg/dL (74-99); Non-African American GFR(CKD) >90 (>60 ml/min/1.73 sqM); Potassium 4.5 mmol/L (3.5-5.1); Sodium 135 mmol/L (137-145); Total Bilirubin 0.3 mg/dL (0.2-1.3); Total Protein 5.4 g/dL (6.3-8.2)
--- NOTE | 2024-12-09 10:37 | P.PN ---
Subjective Progress Note Date: 12/09/24 SURGICAL PROGRESS NOTE CHIEF COMPLAINT: Anemia HISTORY OF PRESENT ILLNESS: No new complaints. Patient reports brown stools. Denies any abdominal pain. Status post EGD reporting gastritis. Colonoscopy not completed due to poor polyp prep. Hemoglobin stable at 8.3. Patient scheduled for discharge to [facility] today. PHYSICAL EXAM: VITAL SIGNS: Reviewed. GENERAL: Well-developed in no acute distress. ABDOMEN: Soft. Nondistended. Nontender. NEUROLOGIC: Alert and oriented. Cranial nerves II through XII grossly intact. ASSESSMENT: 1. Chronic anemia. No GI source of bleeding PLAN: - Continue PPI for gastritis - Patient is refusing colonoscopy at this time - Okay to resume Plavix from surgical standpoint -Okay for discharge from surgical standpoint when medically cleared Physician Senior Electrical Estimator note has been reviewed by physician. Signing provider agrees with the documented findings, assessment, and plan of care. Objective - Vital Signs Vital signs: Vital Signs Temp 97.8 F 12/09/24 06:52 Pulse 72 12/09/24 06:52 Resp 18 12/09/24 06:52 BP 133/70 12/09/24 06:52 Pulse Ox 97 12/09/24 06:52 FiO2 Intake & Output 12/08/24 12/09/24 12/09/24 18:59 06:59 18:59 Intake Total 1794 Output Total 2400 600 Balance -606 -600 Intake: Intake, IV Titration 500 Amount Vancomycin 1,500 mg In 500 Sodium Chloride 0.9% 500 ml 500 ml @ 167 mls/hr IVPB Q12HR@1000,2200 RUTH Rx#:[id number] Oral 1294 Output: Urine 2400 600 Stool 0 Other: Voiding Method Urinal Urinal Urinal # Voids 2 0 1 # Bowel Movements 0 1 # Emeses 0 - Labs CBC & Chem 7: 12/09/24 09:51 12/09/24 09:51 Labs: Abnormal Lab Results - Last 24 Hours (Table) 12/08/24 12/08/24 12/08/24 Range/Units 12:12 17:14 20:28 RBC (4.40-5.60) 10*6/uL Hgb (13.0-17.0) g/dL Hct (39.6-50.0) % MCV (80.0-97.0) fL MCHC (32.0-37.0) g/dL RDW (11.5-14.5) % MPV (9.5-12.2) fL Immature Gran # (0.00-0.04) 10*3/uL Lymphocytes # (0.90-5.00) 10*3/uL Sodium (137-145) mmol/L Glucose (74-99) mg/dL POC Glucose (mg/dL) 259 H 155 H 221 H (70-110) mg/dL AST (17-59) U/L C-Reactive Protein (<1.0) mg/dL Total Protein (6.3-8.2) g/dL Albumin (3.5-5.0) g/dL 12/09/24 12/09/24 12/09/24 Range/Units 06:56 09:51 09:51 RBC 2.68 L (4.40-5.60) 10*6/uL Hgb 8.3 L (13.0-17.0) g/dL Hct 26.3 L (39.6-50.0) % MCV 98.1 H (80.0-97.0) fL MCHC 31.6 L (32.0-37.0) g/dL RDW 14.7 H (11.5-14.5) % MPV 9.3 L (9.5-12.2) fL Immature Gran # 0.06 H (0.00-0.04) 10*3/uL Lymphocytes # 0.58 L (0.90-5.00) 10*3/uL Sodium 135 L (137-145) mmol/L Glucose 247 H (74-99) mg/dL POC Glucose (mg/dL) 124 H (70-110) mg/dL AST 13 L (17-59) U/L C-Reactive Protein 4.4 H (<1.0) mg/dL Total Protein 5.4 L (6.3-8.2) g/dL Albumin 2.9 L (3.5-5.0) g/dL
--- NOTE | 2024-12-09 11:30 | P.DS ---
Providers Date of admission: 11/28/24 00:42 Expected date of discharge: 12/09/24 Attending physician: Lily Andino MD Consults: 11/28/24 10:17 Consult Physician Routine Consulting Provider: Katerin Monreal Consult Reason/Comments: Anemia Do you want consulting provider notified?: Yes 11/29/24 16:29 Consult Physician Routine Consulting Provider: Sha Santana Consult Reason/Comments: iron def anemia, dark stools per pt? Do you want consulting provider notified?: Yes 12/03/24 23:43 Consult Physician Routine Consulting Provider: Alexa Peters Consult Reason/Comments: New MRSA infection with multiple previous infections over last 60 days Do you want consulting provider notified?: Yes [facility] Course: 74-year-old male with past medical history of left foot osteomyelitis status post transmetatarsal amputation and debridement on IV cefepime, PAD s/p left common femoral thromboendarterectomy with left femoral to popliteal bypass, [id number] type II DM, history of DVT not on anticoagulation, hyperlipidemia, BPH, chronic tobacco use, peripheral neuropathy presented to the emergency department after being sent from [facility] due to low hemoglobin. He has a history of requiring blood transfusion. Not currently on blood thinners denies any hematochezia or melena. Hemoglobin on arrival 5.8, patient admitted for further management of acute anemia requiring blood transfusion, general surgery consulted for EGD and colonoscopy, hematology oncology consulted. EGD was done on 12/02, no evidence of upper GI bleed, antral gastritis noticed. Colonoscopy not performed due to poor preparation, patient refused repeat. Iron studies showed iron saturation 27%, ferritin 56.7, B12 274 and folate 24.9. Oncology recommended to hold on IV iron due to active osteomyelitis. Patient has been complaining of worsening wound, his wound VAC was taken off on admission, Vascular Sx was consulted. Wound cultures growing MRSA, E. coli, Enterobacter cloacae, Prevotella species. Patient was started on vancomycin and ID was consulted. On 12/05 patient underwent bedside debridement and placed wound VAC back on with Vascular Sx. Discharge Plan: Discussed with ID, patient will be discharged on vancomycin, cefepime and oral Flagyl for 3 to 4 weeks with close follow-up. Follow up with vascular surgery and GI within 1 week of discharge, PCP within 1-2 days of discharge. 12/09 Patient seen and examined. Feeling well. Looking forward to discharge to [facility]. CBC and CMP significant for RBC 2.68, Hg 8.3, Hct 26.3, MCV 98.1, Na 135, AST 13, alb 2.9. CRP 4.4. General: non toxic, no distress, appears at stated age Derm: warm, dry Head: atraumatic, normocephalic, symmetric Eyes: EOMI, no lid lag, anicteric sclera Mouth: no lip lesion, mucus membranes moist Cardiovascular: S1S2 reg, no murmur Lungs: Clear to auscultation bilaterally, no rhonchi, no rales , no accessory muscle use Ext: no gross muscle atrophy, no edema, L TMA with wound vac with calf tenderness Neuro: No focal neurologic deficits. Discharge Diagnosis: Macrocytic anemia Iron deficiency anemia Blood loss from recent TMA on 10/31 Antral gastritis per EGD 12/02 Left foot osteomyelitis s/p transmetatarsal amputation and debridement Wound cultures positive for MRSA, E. coli, Enterobacter cloacae, Prevotella species Alf-ximejhy-lryfiaagt type 2 diabetes mellitus History of DVT not currently on anticoagulation Hyperlipidemia BPH Chronic tobacco use Peripheral neuropathy This complex discharge took 35 minutes to complete. Patient Condition at Discharge: Stable Plan - Discharge Summary New Discharge Prescriptions: New Cefepime [Maxipime] 2 gm IVPB Q8H #84 each Vancomycin HCl in 5 % Dextrose [Vancomycin 1.5 Gram/300 ml-D5w] 1.5 gm IV Q12HR #84 each metroNIDAZOLE [Flagyl] 500 mg PO TID #120 tab Pantoprazole [Protonix] 40 mg PO AC-BRKFST #30 tab Cyanocobalamin (Vitamin B-12) [Vitamin B-12] 1,000 mcg PO DAILY #30 tablet Continue metFORMIN HCL [Glucophage] 1,000 mg PO BID Aspirin [Adult Low Dose Aspirin EC] 81 mg PO DAILY Cholecalciferol [Vitamin D3 (25 Mcg = 1000 Iu)] 50 mcg PO DAILY cilostazoL [Pletal] 100 mg PO BID #60 tab Folic Acid 1 mg PO DAILY #30 tab Ferrous Sulfate [Iron (65 MG Elemental)] 325 mg PO DAILY #30 tab Lactulose [Cephulac] 20 gm PO BID Empagliflozin [Jardiance] 25 mg PO DAILY Atorvastatin [Lipitor] 80 mg PO HS oxyCODONE-APAP 7.5-325MG [Percocet 7.5-325 mg] 1 tab PO Q4H PRN #18 tab PRN Reason: Pain glipiZIDE [Glucotrol] 10 mg PO BID Podofilox 1 applic TOPICAL DAILY Gabapentin [Neurontin] 300 mg PO TID 30 Days #90 cap Ascorbic Acid [Vitamin C] 1,000 mg PO DAILY #30 tablet Tamsulosin HCl [Flomax] 0.8 mg PO HS #30 cap Multivitamins, Thera [Multivitamin (formulary)] 1 tab PO DAILY Clopidogrel [Plavix] 75 mg PO DAILY #90 tab Saxagliptin HCl 5 mg PO DAILY 0.9 % Sodium Chloride [Sodium Chloride Flush] 10 ml IV Q8H Discontinued Cefepime [Maxipime] 2 gm IVPB Q8HR each Discharge Medication List metFORMIN HCL [Glucophage] 1,000 mg PO BID 12/23/16 [History] Aspirin [Adult Low Dose Aspirin EC] 81 mg PO DAILY 11/01/17 [History] Cholecalciferol [Vitamin D3 (25 Mcg = 1000 Iu)] 50 mcg PO DAILY 06/17/21 [History] Podofilox 1 applic TOPICAL DAILY 10/03/24 [History] glipiZIDE [Glucotrol] 10 mg PO BID 10/03/24 [History] Gabapentin [Neurontin] 300 mg PO TID 30 Days #90 cap 10/08/24 [Rx] cilostazoL [Pletal] 100 mg PO BID #60 tab 10/08/24 [Rx] Ascorbic Acid [Vitamin C] 1,000 mg PO DAILY #30 tablet 10/15/24 [Rx] Ferrous Sulfate [Iron (65 MG Elemental)] 325 mg PO DAILY #30 tab 10/15/24 [Rx] Folic Acid 1 mg PO DAILY #30 tab 10/15/24 [Rx] Tamsulosin HCl [Flomax] 0.8 mg PO HS #30 cap 10/15/24 [Rx] Multivitamins, Thera [Multivitamin (formulary)] 1 tab PO DAILY 10/17/24 [History] Clopidogrel [Plavix] 75 mg PO DAILY #90 tab 11/05/24 [Rx] 0.9 % Sodium Chloride [Sodium Chloride Flush] 10 ml IV Q8H 11/28/24 [History] Atorvastatin [Lipitor] 80 mg PO HS 11/28/24 [History] Empagliflozin [Jardiance] 25 mg PO DAILY 11/28/24 [History] Lactulose [Cephulac] 20 gm PO BID 11/28/24 [History] Saxagliptin HCl 5 mg PO DAILY 11/28/24 [History] Cefepime [Maxipime] 2 gm IVPB Q8H #84 each 12/05/24 [Rx] Cyanocobalamin (Vitamin B-12) [Vitamin B-12] 1,000 mcg PO DAILY #30 tablet 12/05/24 [Rx] Pantoprazole [Protonix] 40 mg PO AC-BRKFST #30 tab 12/05/24 [Rx] Vancomycin HCl in 5 % Dextrose [Vancomycin 1.5 Gram/300 ml-D5w] 1.5 gm IV Q12HR #84 each 12/05/24 [Rx] metroNIDAZOLE [Flagyl] 500 mg PO TID #120 tab 12/05/24 [Rx] oxyCODONE-APAP 7.5-325MG [Percocet 7.5-325 mg] 1 tab PO Q4H PRN #18 tab 12/09/24 [Rx] Follow up Appointment(s)/Referral(s): Herman Quintero [STAFF PHYSICIAN] - 6 Weeks (Appt can be 6-8 weeks after discharge) Dagoberto Alicea DO [Doctor of Osteopathic Medicine] - 1 Week [facility] [NON-STAFF] - 2 Weeks [facility] [REFERRING] - 1 Week Florentino Roldan DO [Primary Care Provider] - 1-2 days Alexa Peters MD [STAFF PHYSICIAN] - 1 Week Activity/Diet/Wound Care/Special Instructions: Nonweightbearing to left foot Wound VAC to left foot wound therapy setting at 125 mmHg slow intensity with black granular foam, change Tuesdays and Saturdays Please, continue antibiotics as prescribed by ID. Follow up with PCP, vascular surgery, ID, GI Enlarged left inguinal lymph node: Could be reactive to recent femoral bypass, will need to be followed up o/p with repeat imaging Discharge Disposition: TRANSFER TO SNF/ECF
--- NOTE | 2024-12-10 13:20 | P.PN ---
Subjective Progress Note Date: 12/09/24 Principal diagnosis: Reason for follow-up is infected left foot wound Patient is a 74-year-old male with multiple comorbidities admitted to hospital for symptomatic anemia in this patient also getting treatment for his left foot infected wound with the previous culture positive for Enterobacter however the culture this admission not growing Enterobacter E. coli MRSA and Prevotella. On today's evaluation that is 12/09/2024, patient has been afebrile, patient is breathing comfortably and is currently on room air, patient denies having any chest pain and cough, patient denies nausea vomiting or diarrhea and no abdominal pain pain to the left foot is currently controlled. Patient white count 5.23, creatinine 0.71, culture this admission with Enterobacter E. coli MRSA and Prevotella Objective - Vital Signs Vital signs: Vital Signs Temp 97.8 F 12/09/24 06:52 Pulse 72 12/09/24 06:52 Resp 18 12/09/24 06:52 BP 133/70 12/09/24 06:52 Pulse Ox 97 12/09/24 06:52 FiO2 Intake & Output 12/08/24 12/09/24 12/09/24 18:59 06:59 18:59 Intake Total 1794 Output Total 2400 600 Balance -606 -600 Intake: Intake, IV Titration 500 Amount Vancomycin 1,500 mg In 500 Sodium Chloride 0.9% 500 ml 500 ml @ 167 mls/hr IVPB Q12HR@1000,2200 RUTH Rx#:[id number] Oral 1294 Output: Urine 2400 600 Stool 0 Other: Voiding Method Urinal Urinal Urinal # Voids 2 0 1 # Bowel Movements 0 1 # Emeses 0 - Exam GENERAL DESCRIPTION: An elderly male lying in bed in no distress RESPIRATORY SYSTEM: Unlabored breathing , decreased breath sounds at bases HEART: S1 S2 regular rate and rhythm , ABDOMEN: Soft , no tenderness EXTREMITIES: Left foot wound is covered with a wound VAC - Labs CBC & Chem 7: 12/09/24 09:51 12/09/24 09:51 Labs: Abnormal Lab Results - Last 24 Hours (Table) 12/08/24 12/08/24 12/08/24 Range/Units 12:12 17:14 20:28 RBC (4.40-5.60) 10*6/uL Hgb (13.0-17.0) g/dL Hct (39.6-50.0) % MCV (80.0-97.0) fL MCHC (32.0-37.0) g/dL RDW (11.5-14.5) % MPV (9.5-12.2) fL Immature Gran # (0.00-0.04) 10*3/uL Lymphocytes # (0.90-5.00) 10*3/uL Sodium (137-145) mmol/L Glucose (74-99) mg/dL POC Glucose (mg/dL) 259 H 155 H 221 H (70-110) mg/dL AST (17-59) U/L C-Reactive Protein (<1.0) mg/dL Total Protein (6.3-8.2) g/dL Albumin (3.5-5.0) g/dL 12/09/24 12/09/24 12/09/24 Range/Units 06:56 09:51 09:51 RBC 2.68 L (4.40-5.60) 10*6/uL Hgb 8.3 L (13.0-17.0) g/dL Hct 26.3 L (39.6-50.0) % MCV 98.1 H (80.0-97.0) fL MCHC 31.6 L (32.0-37.0) g/dL RDW 14.7 H (11.5-14.5) % MPV 9.3 L (9.5-12.2) fL Immature Gran # 0.06 H (0.00-0.04) 10*3/uL Lymphocytes # 0.58 L (0.90-5.00) 10*3/uL Sodium 135 L (137-145) mmol/L Glucose 247 H (74-99) mg/dL POC Glucose (mg/dL) 124 H (70-110) mg/dL AST 13 L (17-59) U/L C-Reactive Protein 4.4 H (<1.0) mg/dL Total Protein 5.4 L (6.3-8.2) g/dL Albumin 2.9 L (3.5-5.0) g/dL Assessment and Plan (1) MRSA (methicillin resistant staph aureus) culture positive Status: Acute Code(s): Z22.322 - CARRIER OR SUSPECTED CARRIER OF METHICILLIN RESIS STAPH SNOMED Code(s): 056273258 (2) Foot osteomyelitis, left Status: Acute Code(s): M86.9 - OSTEOMYELITIS, UNSPECIFIED SNOMED Code(s): 0233676230810852 (3) Wound of left foot Status: Acute Code(s): S91.302A - UNSPECIFIED OPEN WOUND, LEFT FOOT, INITIAL ENCOUNTER SNOMED Code(s): 29285496626427641 (4) Diabetic foot infection Status: Acute Code(s): E11.628 - TYPE 2 DIABETES MELLITUS WITH OTHER SKIN COMPLICATIONS; L08.9 - LOCAL INFECTION OF THE SKIN AND SUBCUTANEOUS TISSUE, UNSP SNOMED Code(s): 547507985 Plan: 1patient with a chronic nonhealing wound to the left foot in this patient with initial admission to hospital for gangrenous toe followed by vascular intervention and did have a transmetatarsal amputation with initial culture with MSSA repeat culture on 10/25/2024 grew Enterobacter for the patient was getting cefepime however the culture done this admission on 12/02/2024 for now growing MRSA E. coli and Enterobacter and also anaerobe Prevotella 2-patient is currently being treated with cefepime, vancomycin pharmacy dose and Flagyl to continue for 4 weeks on discharge, depending upon his clinical response to the therapeutic close the patient follow-up Dictation was produced using [employer] dictation software. please excuse any grammatical, word or spelling errors. Time with Patient: Less than 30
--- NOTE | 2024-12-10 13:20 | P.PN ---
Subjective Progress Note Date: 12/08/24 Principal diagnosis: Reason for follow-up is infected left foot wound Patient is a 74-year-old male with multiple comorbidities admitted to hospital for symptomatic anemia in this patient also getting treatment for his left foot infected wound with the previous culture positive for Enterobacter however the culture this admission not growing Enterobacter E. coli MRSA and Prevotella. On today's evaluation that is 12/08/2023, patient did have a temperature of 98 F this morning and denies having any chills, patient is on room air and breathing comfortably no chest pain or cough, the patient did not have any nausea vomiting abdominal pain or any diarrhea, complaining of some pain to the left calf area No new lab has been obtained today except Vanco trough of 22.7 Objective - Vital Signs Vital signs: Vital Signs Temp 97.7 F 12/07/24 12:05 Pulse 63 12/07/24 12:05 Resp 16 12/07/24 12:05 BP 122/63 12/07/24 12:05 Pulse Ox 97 12/07/24 12:05 FiO2 Intake & Output 12/06/24 12/07/24 12/07/24 18:59 06:59 18:59 Intake Total 1594 Output Total 2104 1200 1200 Balance -510 1200 -1200 Intake: Oral 1594 Output: Urine 2104 1200 1200 Other: Voiding Method Urinal Urinal Urinal # Voids 2 # Bowel Movements 3 - Exam GENERAL DESCRIPTION: An elderly male lying in bed in no distress RESPIRATORY SYSTEM: Unlabored breathing , decreased breath sounds at bases HEART: S1 S2 regular rate and rhythm , ABDOMEN: Soft , no tenderness EXTREMITIES: Left foot wound is covered with a wound VAC - Labs CBC & Chem 7: 12/06/24 05:24 12/06/24 05:24 Labs: Abnormal Lab Results - Last 24 Hours (Table) 12/06/24 12/06/24 12/06/24 Range/Units 05:24 17:06 20:21 ESR 31 H (0-20) mm/Hr POC Glucose (mg/dL) 237 H 204 H (70-110) mg/dL 12/07/24 12/07/24 Range/Units 07:16 12:08 ESR (0-20) mm/Hr POC Glucose (mg/dL) 127 H 225 H (70-110) mg/dL Assessment and Plan (1) MRSA (methicillin resistant staph aureus) culture positive Current Visit: Yes Status: Acute Code(s): Z22.322 - CARRIER OR SUSPECTED CARRIER OF METHICILLIN RESIS STAPH SNOMED Code(s): 210995968 (2) Foot osteomyelitis, left Current Visit: Yes Status: Acute Code(s): M86.9 - OSTEOMYELITIS, UNSPECIFIED SNOMED Code(s): 3761027567034430 (3) Wound of left foot Current Visit: Yes Status: Acute Code(s): S91.302A - UNSPECIFIED OPEN WOUND, LEFT FOOT, INITIAL ENCOUNTER SNOMED Code(s): 55068688683383188 (4) Diabetic foot infection Current Visit: No Status: Acute Code(s): E11.628 - TYPE 2 DIABETES MELLITUS WITH OTHER SKIN COMPLICATIONS; L08.9 - LOCAL INFECTION OF THE SKIN AND SUBCUTANEOUS TISSUE, UNSP SNOMED Code(s): 498253293 Plan: 1patient with a chronic nonhealing wound to the left foot in this patient with initial admission to hospital for gangrenous toe followed by vascular interven tion and did have a transmetatarsal amputation with initial culture with MSSA repeat culture on 10/25/2024 grew Enterobacter for the patient was getting cefepime however the culture done this admission on 12/02/2024 for now growing MRSA E. coli and Enterobacter and also anaerobe Prevotella 2-[facility] and for now continue with cefepime, vancomycin pharmacy dose and Flagyl Dictation was produced using [employer] dictation software. please excuse any grammatical, word or spelling errors.
== END 2024-12-09 11:45 | DRG 982 ==
LOC: EC 19:33 → SUPCPDRO 19:33 → OBSVTOIN 11-28 00:42 → 5NMEDONC 11-28 00:42
PROVIDERS: ADMIT Internal Medicine; ATTEND Internal Medicine
PROC: 30233N1 Transfusion of Nonautologous Red Blood Cells into Peripheral Vein, Percutaneous Approach (ICD-10-PCS; 2024-11-27)
PROC: 0DB78ZX Excision of Stomach, Pylorus, Via Natural or Artificial Opening Endoscopic, Diagnostic (ICD-10-PCS; principal; 2024-12-02 08:55)
PROC: 0LBW0ZZ Excision of Left Foot Tendon, Open Approach (ICD-10-PCS; 2024-12-05)
DX: D50.9 Iron deficiency anemia, unspecified (principal); E11.52 Type 2 diabetes mellitus with diabetic peripheral angiopathy with gangrene; I96 Gangrene, not elsewhere classified; T87.44 Infection of amputation stump, left lower extremity; I10 Essential (primary) hypertension; Z95.820 Peripheral vascular angioplasty status with implants and grafts; D53.9 Nutritional anemia, unspecified; M86.8X7 Other osteomyelitis, ankle and foot; L02.612 Cutaneous abscess of left foot; E11.42 Type 2 diabetes mellitus with diabetic polyneuropathy; E11.69 Type 2 diabetes mellitus with other specified complication; Z89.432 Acquired absence of left foot; B95.62 Methicillin resistant Staphylococcus aureus infection as the cause of diseases classified elsewhere; B96.20 Unspecified Escherichia coli [E. coli] as the cause of diseases classified elsewhere; B96.89 Other specified bacterial agents as the cause of diseases classified elsewhere; K29.70 Gastritis, unspecified, without bleeding; E78.5 Hyperlipidemia, unspecified; N40.0 Benign prostatic hyperplasia without lower urinary tract symptoms; K21.9 Gastro-esophageal reflux disease without esophagitis; S91.302A Unspecified open wound, left foot, initial encounter; H35.30 Unspecified macular degeneration; Z79.02 Long term (current) use of antithrombotics/antiplatelets; E83.42 Hypomagnesemia; F17.200 Nicotine dependence, unspecified, uncomplicated; M79.662 Pain in left lower leg; R59.0 Localized enlarged lymph nodes; Z53.09 Procedure and treatment not carried out because of other contraindication; B99.9 Unspecified infectious disease; Z86.718 Personal history of other venous thrombosis and embolism; Z79.899 Other long term (current) drug therapy; Z79.82 Long term (current) use of aspirin; Z79.84 Long term (current) use of oral hypoglycemic drugs; Z88.2 Allergy status to sulfonamides; Z88.1 Allergy status to other antibiotic agents; Z88.8 Allergy status to other drugs, medicaments and biological substances
CPT/HCPCS: 36415; 36430; 43239; 80048; 80053; 80202; 82565; 82607; 82728; 82746; 83010; 83540; 83550; 83615; 85025; 85027; 85045; 85610; 85652; 85730; 86140; 86850; 86900; 86901; 86920; 87070; 87075; 87077; 87186; 87205; 88305; 96365; 96372; 99285